=== PATIENT | female | born 1965 | race Caucasian/White ===

== ENCOUNTER → 2017-12-18 12:34 | Outpatient (CLI) | payer MEDICARE, SELFPAY ==
[2017-12-18 12:53] LABS: Absolute Lymphocyte Count 1.28 X10^3/ul (0.83-4.51); Absolute Neutrophil Count 2.6 X10^3/uL (2.0-7.7); Basophil# 0.02 X10^3/uL; Basophil% 0.4 % (0-1); Eosinophil# 0.12 X10^3/uL; Eosinophils% 2.6 % (0-5); Hematocrit 43.5 % (37-47); Hemoglobin 14.5 g/dl (12.0-15.0); Lymphocyte # 1.28 X10^3/ul (4.0); Lymphocyte % 28.2 % (19-41); Mean Corp Hgb Conc 33.3 g/gl (32-36); Mean Corpuscular Hgb 33.7 pg (27.0-32.0); Mean Corpuscular Volume 101.2 fL (81-99); Mean Platelet Vol. 9.5 fl (6.2-12.0); Monocyte# 0.54 X10^3/uL; Monocyte% 11.9 % (0-10); Neutrophil # 2.57 X10^3/uL (2.7-7.7); Neutrophil % 56.7 % (47-70); Platelet Count 160 K/mm3 (150-450); RBC Distribution Width CV 13.6 % (11.6-14.6); RBC Distribution Width SD 49.8 fl (35.1-43.9); White Blood Count 4.5 K/mm3 (4.4-11.0)
[2017-12-18 12:55] LABS: POSITIVE COUNT NO; POSITIVE DIFFERENTIAL NO; POSITIVE MORPHOLOGY NO
[2017-12-18 13:30] LABS: ALB/GLOB Ratio 0.9 RATIO (0.9-2.4); AST(SGOT) 23 U/L (15-37); Alanine Aminotransfer ALT/SGPT 38 U/L (13-56); Albumin, Serum 3.4 g/dL (3.2-5.0); Alkaline Phosphatase 135 U/L (45-117); Anion Gap 9 (5-15); BUN 30 mg/dL (7-18); BUN/Creat Ratio 17.3 RATIO (10-20); Calcium,Total 9.7 mg/dL (8.5-10.1); Chloride 102 mmol/L (98-107); Creatinine, Serum 1.73 mg/dL (0.55-1.02); EST Glomerular Filtration Rate 33 mL/min (>60); Est Glom Filt Rate - Afr Amer 40 mL/min (>60); Globulin 3.9 g/dL (2.2-4.2); Glucose 261 mg/dL (70-110); Potassium 3.8 mmol/L (3.5-5.1); Protein, Total 7.3 g/dL (6.4-8.2); Sodium Level 138 mmol/L (136-145)
== END ==
PROVIDERS: Family Provider Internal Medicine; PCP Internal Medicine; Visit Provider Internal Medicine Rheumatology
DX: L40.59 Other psoriatic arthropathy (principal); M79.7 Fibromyalgia; G62.9 Polyneuropathy, unspecified; Z79.899 Other long term (current) drug therapy
CPT/HCPCS: 80053; 85025

== ENCOUNTER 2018-02-11 13:05 | Day surgery (SDC) | payer MEDICARE, SELFPAY ==
[2018-02-11 13:31] VITALS: BP 149/92; PULSE 94; RESP 14; TEMP 36.9; O2SAT 93; BMI 52.4
[2018-02-11 13:51] LABS: Bedside Glucose 208 mg/dL (70-110)
[2018-02-11 14:11] LABS: Prothrombin Time Fingerstick 12.4 SEC (11.9-14.4)
[2018-02-11] MEDS: Cefazolin 1 GM/50 ML BAG IV (14:56)
--- NOTE | 2018-02-11 15:26 | PCM.DC.ORTHO ---
Discharge Diet: No Restrictions Discharge Activity: May Not Drive Ice area for (Minutes): 20 Keep extremity elevated above heart level: Left Arm Call your doctor if your incision/area has: Continuous Slow Oozing, Sudden Increased Bleeding, Increased Pain/ Swelling, Increased Redness, Foul Smelling Discharge Call your doctor if you observe: Fever of 101 or Higher, Coldness, Increased Pain, Numbness or Tingling, Change in Color Suture Line Care: Avoid Pulling/Pushing Remove Dressing in (days):: 7 Cleanse incision/area with: Keep Dressing Clean & Dry - until dressing removed. then may get wet in shower, do not submerge Allergies/Adverse Reactions: Allergies hydrogen peroxide Allergy (Verified 02/04/18 15:07) Rash Sulfa (Sulfonamide Antibiotics) Allergy (Verified 02/04/18 15:07) Hives iodine Adverse Reaction (Verified 02/04/18 15:07) burning (topical) vitamin k Allergy (Uncoded 04/08/17 09:57) Swelling/burning around injection site Medications to take at Discharge Albuterol Sulfate [Proair Hfa] 2 puff INHALATION Q4H PRN PRN 06/30/14 Dicyclomine HCl [Bentyl] 10 mg PO 4X/DAY 06/30/14 Hydroxychloroquine [Plaquenil] 200 mg PO DAILY 06/30/14 Leflunomide 20 mg PO DAILY 06/30/14 Levothyroxine [Synthroid] 100 mcg PO DAILY 06/30/14 Omeprazole [Prilosec] 40 mg PO DAILY 06/30/14 Ondansetron HCl 4 mg PO Q8H PRN PRN 06/30/14 Simvastatin [Zocor] 10 mg PO QHS 06/30/14 Sucralfate [Carafate] 10 ml PO ACHS PRN 06/30/14 Quetiapine Fumarate [Seroquel] 25 mg PO BID 08/24/14 Lactobacillus Combination No.4 [Probiotic] 2 each PO QHS 10/29/14 Quetiapine Fumarate [Seroquel XR] 150 mg PO QHS 04/17/16 Verapamil [Calan] 40 mg PO TID 04/17/16 Morphine Pain Pump 05/23/16 Vitamin B Complex 1 each PO DAILY 05/23/16 Vitamin E 400 unit PO DAILY 05/23/16 Warfarin [Coumadin] 5 mg PO SUMOWETHFR 04/08/17 Warfarin [Coumadin] 7.5 mg PO TUSA 04/08/17 Albuterol Aerosols [Ventolin Aerosols] 2.5 mg INHALATION Q6HWA.RT 04/12/17 Clonazepam [Klonopin] 0.5 mg PO QHS #10 tablet 04/12/17 Gabapentin [Neurontin] 300 mg PO TIDCM #90 capsule 04/12/17 Lisinopril [Zestril] 2.5 mg PO DAILY tablet 04/12/17 Metoprolol Tartrate [Lopressor (beta ancelmo)] 25 mg PO BID tablet 04/12/17 Oxycodone [Oxyir] 5 mg PO Q6H PRN PRN #10 tablet 04/12/17 Fluticasone/Vilanterol [Breo Ellipta 200-25 Mcg INH] 1 each IH DAILY 02/04/18 Gabapentin [Gralise] 600 mg PO QHS 02/04/18 Insulin Aspart [Novolog Flexpen] 20 units SC TIDCM 02/04/18 Insulin Glargine [Lantus SoloStar Pen] 60 units SC QHS 02/04/18 Hydrocodone Bitart/Apap 5-325 [[place] 5/325] 1 - 2 tablet PO Q6H PRN PRN 7 Days #40 tablet 02/11/18 The following prescriptions were given: Hydrocodone Bitart/Apap 5-325 [[place] 5/325] 1 - 2 tablet PO Q6H PRN PRN 7 Days #40 tablet PRN Reason: Mild-Moderate (pain scale 1-5) Please Follow Up With: Eugene Juárez PA-C When: as scheduled
--- NOTE | 2018-02-11 15:31 | DCINST_ITS ---
Discharge Diet: No Restrictions Discharge Activity: May Not Drive Ice area for (Minutes): 20 Keep extremity elevated above heart level: Left Arm Call your doctor if your incision/area has: Continuous Slow Oozing, Sudden Increased Bleeding, Increased Pain/ Swelling, Increased Redness, Foul Smelling Discharge Call your doctor if you observe: Fever of 101 or Higher, Coldness, Increased Pain, Numbness or Tingling, Change in Color Suture Line Care: Avoid Pulling/Pushing Remove Dressing in (days):: 7 Cleanse incision/area with: Keep Dressing Clean & Dry - until dressing removed. then may get wet in shower, do not submerge Allergies/Adverse Reactions: Allergies hydrogen peroxide Allergy (Verified 02/04/18 15:07) Rash Sulfa (Sulfonamide Antibiotics) Allergy (Verified 02/04/18 15:07) Hives iodine Adverse Reaction (Verified 02/04/18 15:07) burning (topical) vitamin k Allergy (Uncoded 04/08/17 09:57) Swelling/burning around injection site Medications to take at Discharge Albuterol Sulfate [Proair Hfa] 2 puff INHALATION Q4H PRN PRN 06/30/14 Dicyclomine HCl [Bentyl] 10 mg PO 4X/DAY 06/30/14 Hydroxychloroquine [Plaquenil] 200 mg PO DAILY 06/30/14 Leflunomide 20 mg PO DAILY 06/30/14 Levothyroxine [Synthroid] 100 mcg PO DAILY 06/30/14 Omeprazole [Prilosec] 40 mg PO DAILY 06/30/14 Ondansetron HCl 4 mg PO Q8H PRN PRN 06/30/14 Simvastatin [Zocor] 10 mg PO QHS 06/30/14 Sucralfate [Carafate] 10 ml PO ACHS PRN 06/30/14 Quetiapine Fumarate [Seroquel] 25 mg PO BID 08/24/14 Lactobacillus Combination No.4 [Probiotic] 2 each PO QHS 10/29/14 Quetiapine Fumarate [Seroquel XR] 150 mg PO QHS 04/17/16 Verapamil [Calan] 40 mg PO TID 04/17/16 Morphine Pain Pump 05/23/16 Vitamin B Complex 1 each PO DAILY 05/23/16 Vitamin E 400 unit PO DAILY 05/23/16 Warfarin [Coumadin] 5 mg PO SUMOWETHFR 04/08/17 Warfarin [Coumadin] 7.5 mg PO TUSA 04/08/17 Albuterol Aerosols [Ventolin Aerosols] 2.5 mg INHALATION Q6HWA.RT 04/12/17 Clonazepam [Klonopin] 0.5 mg PO QHS #10 tablet 04/12/17 Gabapentin [Neurontin] 300 mg PO TIDCM #90 capsule 04/12/17 Lisinopril [Zestril] 2.5 mg PO DAILY tablet 04/12/17 Metoprolol Tartrate [Lopressor (beta ancelmo)] 25 mg PO BID tablet 04/12/17 Oxycodone [Oxyir] 5 mg PO Q6H PRN PRN #10 tablet 04/12/17 Fluticasone/Vilanterol [Breo Ellipta 200-25 Mcg INH] 1 each IH DAILY 02/04/18 Gabapentin [Gralise] 600 mg PO QHS 02/04/18 Insulin Aspart [Novolog Flexpen] 20 units SC TIDCM 02/04/18 Insulin Glargine [Lantus SoloStar Pen] 60 units SC QHS 02/04/18 Hydrocodone Bitart/Apap 5-325 [[place] 5/325] 1 - 2 tablet PO Q6H PRN PRN 7 Days # 40 tablet 02/11/18 The following prescriptions were given: Hydrocodone Bitart/Apap 5-325 [[place] 5/325] 1 - 2 tablet PO Q6H PRN PRN 7 Days # 40 tablet PRN Reason: Mild-Moderate (pain scale 1-5) Please Follow Up With: Eugene Juárez PA-C When: as scheduled
--- NOTE | 2018-02-11 15:31 | PCM.OPRPT ---
Report of Operation Date of Procedure: 02/11/18 Pre-Operative Diagnosis: Severe carpal tunnel syndrome left wrist Post-Operative Diagnosis: Severe carpal tunnel syndrome left wrist Surgery/Procedure Performed:: External neurolysis median nerve left Description of Surgical Findings:: Carpal tunnel syndrome oven technician: Andrew Hickman Type of Anesthesia:: Oz Santa Anesthesiologist: Feroz Tineo Estimated Blood Loss (mL): 5 Fluids Replaced: See anesthesia report Description of Procedure: Surgical indications: Yelena is a 52-year-old female that has severe carpal tunnel syndrome diagnosed via EMG nerve conduction velocity. She has elected to undergo the above procedure Procedure description: Yelena was greeted in the preoperative area. Her left upper extremities marked with surgical marker. Preoperative antibiotics were administered. She was then taken or [address] in a stable condition. After adequate anesthesia was obtained and airway was secured the arm was prepped and draped in usual sterile fashion. Surgical timeout was performed surgery was commenced. incision was then made in the palm in line with the third webspace not propagating distal to Adams's line. This is approximately 2 cm in length. Sharp dissection was then carried through the palmar fascia and the flexor retinaculum was identified. The flexor retinaculum was then transected in line with median nerve. Median nerve was easily identified beneath the flexor retinaculum and protected as the flexor retinaculum was transected to the antebrachial fascia. The remaining portion of the retinaculum was then transected distally to the palmar fat pad. The nerve was then visualized and free of any compression. There is also no abnormalities of the nerve identified with visual inspection. Once this was complete the skin was closed with 3-0 nylon. A well-padded on her dressings applied secured with a Ortho-Glass splint. Patient taught procedure well without complication was taken to recovery room in stable condition. - Admit VTE Documentation VTE Present on Admission: Yes VTE Mechan Device Prophylaxis: SCD's, Knee High INDIO Hose VTE Pharm Prophylaxis ordered?: No Reason prophylaxis not ordered:: Procedure Not Indicated
[2018-02-11 15:39] VITALS: BP 118/70; BP 149/92; PULSE 104; RESP 18; TEMP 36.9; O2SAT 92
[2018-02-11 15:45] VITALS: BP 115/69; BP 149/92; PULSE 97; RESP 18; O2SAT 93
[2018-02-11 15:50] VITALS: BP 118/94; BP 149/92; PULSE 91; RESP 18; O2SAT 95
[2018-02-11 15:56] VITALS: BP 101/63; BP 149/92; PULSE 88; RESP 18; TEMP 36.6; O2SAT 96
[2018-02-11 16:40] VITALS: BP 149/92
== END 2018-02-11 16:42 | disposition home or self-care (01) ==
LOC: SDC 13:08 → AC 13:09
PROVIDERS: Family Provider Internal Medicine; PCP Internal Medicine; Visit Provider Orthopaedic Surgery
PROC: (CPT 64721; principal; 2018-02-11 14:30)
DX: G56.02 Carpal tunnel syndrome, left upper limb (principal); I12.9 Hypertensive chronic kidney disease with stage 1 through stage 4 chronic kidney disease, or unspecified chronic kidney disease; E11.22 Type 2 diabetes mellitus with diabetic chronic kidney disease; N18.3 Chronic kidney disease, stage 3 (moderate); E07.9 Disorder of thyroid, unspecified; M06.9 Rheumatoid arthritis, unspecified; J45.909 Unspecified asthma, uncomplicated; M79.7 Fibromyalgia; G47.30 Sleep apnea, unspecified; L40.9 Psoriasis, unspecified; G25.81 Restless legs syndrome; E66.3 Overweight; Z68.43 Body mass index [BMI] 50.0-59.9, adult; F32.9 Major depressive disorder, single episode, unspecified; Z79.01 Long term (current) use of anticoagulants; Z79.4 Long term (current) use of insulin; Z79.899 Other long term (current) drug therapy; Z86.73 Personal history of transient ischemic attack (TIA), and cerebral infarction without residual deficits; Z86.711 Personal history of pulmonary embolism; Z86.72 Personal history of thrombophlebitis; Z86.718 Personal history of other venous thrombosis and embolism; Z87.442 Personal history of urinary calculi; Z87.19 Personal history of other diseases of the digestive system; Z90.710 Acquired absence of both cervix and uterus
CPT/HCPCS: 01810; 64721; 64727; 36416; 82962; 85610; J7120; A4216; J2405

== ENCOUNTER → 2018-03-11 16:29 | Outpatient (CLI) | payer MEDICARE, SELFPAY ==
[2018-03-11 18:19] LABS: Hemoglobin 15.1 g/dl (12.0-15.0); Red Blood Count 4.51 M/mm3 (4.2-5.4); White Blood Count 5.8 K/mm3 (4.4-11.0)
[2018-03-11 18:20] LABS: Basophil% 0.2 % (0-1); Eosinophils% 2.6 % (0-5); Hematocrit 45.5 % (37-47); Lymphocyte % 38.6 % (19-41); Mean Corp Hgb Conc 33.2 g/gl (32-36); Mean Corpuscular Hgb 33.5 pg (27.0-32.0); Mean Corpuscular Volume 100.9 fL (81-99); Mean Platelet Vol. 9.7 fl (6.2-12.0); Monocyte% 12.2 % (0-10); Neutrophil % 46.2 % (47-70); POSITIVE COUNT NO; POSITIVE DIFFERENTIAL NO; POSITIVE MORPHOLOGY NO; Platelet Count 157 K/mm3 (150-450); RBC Distribution Width CV 13.5 % (11.6-14.6); RBC Distribution Width SD 49.4 fl (35.1-43.9)
[2018-03-11 18:21] LABS: ALB/GLOB Ratio 0.9 RATIO (0.9-2.4); AST(SGOT) 41 U/L (15-37); Absolute Lymphocyte Count 2.25 X10^3/ul (0.83-4.51); Absolute Neutrophil Count 2.7 X10^3/uL (2.0-7.7); Alanine Aminotransfer ALT/SGPT 65 U/L (13-56); Albumin, Serum 3.7 g/dL (3.2-5.0); Alkaline Phosphatase 176 U/L (45-117); Anion Gap 9 (5-15); BUN 25 mg/dL (7-18); BUN/Creat Ratio 17.2 RATIO (10-20); Basophil# 0.01 X10^3/uL; Calcium,Total 9.8 mg/dL (8.5-10.1); Chloride 105 mmol/L (98-107); Creatinine, Serum 1.45 mg/dL (0.55-1.02); EST Glomerular Filtration Rate 41 mL/min (>60); Eosinophil# 0.15 X10^3/uL; Est Glom Filt Rate - Afr Amer 49 mL/min (>60); Globulin 4.1 g/dL (2.2-4.2); Glucose 182 mg/dL (74-106); Lymphocyte # 2.25 X10^3/ul (4.0); Monocyte# 0.71 X10^3/uL; Potassium 3.8 mmol/L (3.5-5.1); Protein, Total 7.8 g/dL (6.4-8.2); Sodium Level 139 mmol/L (136-145)
== END ==
PROVIDERS: Family Provider Internal Medicine; PCP Internal Medicine; Visit Provider Internal Medicine Rheumatology
DX: L40.59 Other psoriatic arthropathy (principal); L40.9 Psoriasis, unspecified; M79.7 Fibromyalgia; G62.9 Polyneuropathy, unspecified; G56.02 Carpal tunnel syndrome, left upper limb; Z79.899 Other long term (current) drug therapy
CPT/HCPCS: 36415; 80053; 85025; 97110; 97530

== ENCOUNTER 2018-03-20 14:00 | Outpatient (RCR) | payer MEDICARE, SELFPAY ==
--- NOTE | 2018-02-26 14:52 | HP.OTEVAL_ITS ---
Patient's Visit Information DEBORA MEYERS is a 52 year old F, referred to Occupational Therapy by Doyle Lorenzo DO, with a diagnosis of left Carpal tunnel syndrome. Date of Evaluation: 02/26/18 Occupational Therapist: KENY Seo/Nyla, CHT - Subjective Subjective: Pt states she had left CTR on February 11. pt attends session with left cock-up brace on- pt states instructed her to wear brace at night and when out of the house. pt is right handed. pt states following sx she has better movement but continues to have nerve pain, tingling and numbness. - Pain left hand 7 Pain Intensity Range: 6, 8 - ROM Forearm: Right/left WNL Wrist: right 50/65 left 25/45 - Strength Health And Wellness Instructor: right 20# left trace Lateral Pinch: right 6# left unable Tripod Pinch: right 6# left unable - Sensation Thumb: right 2.83 left 3.61 Index: right 2.83 left 3.61 Middle: riight 2.83 left 3.61 Ring: right 2.83 left 3.61 Little: right 2.83 left 3.61 - Nine Hole Peg Right: 24.94 Left: 43.35 - Hand/Wrist Evaluation Total Score of Pain & Functional Sections: 79 - Goals Goal:: pt will demo a left instructor apparel manufacture strength of 25# or greater to increase ind. with BADLs adn IADLS by d/c. pt will demo a increase in tripod pinch strength of 4# to increase ind with pinch and FM tasks by d/c Goal:: pt will demo a increase in left wrist ROM by 15 degress to increase pts ind. with BADLS and IADLS by d/c Goal:: pt will report pain no greater than 3/10 with use of left hand with daily occupations by d/c Goal:: pt will demo a decrease in 9-hole peg test by 5 sec. demo increase FMS for buttons, zippers and tying shoes by d/c Goal:: pt will demo understanding of scar mtg by end of 2nd session. - Rehabilitation General Assessment: S/P CTR February 11, 2018. pt demo with decreased functional wrist ROM and the ability to form a composite fist. pt's limited with instructor apparel manufacture and pinch strength at this time as well. the limitations are increasing her need of assist with BADLS and IADLS. Rehabilitation Potential: Good - Anticipated Interventions Anticipated Interventions: A/AAROM/PROM, Strengthening, Scar Care, Triggerpoint Release, Desensitization, Sensory Retraining, Modalities, Orthoses - Visit Plan Frequency: 2-3x /Week Duration: 4 Weeks General Plan: OT services 2-3xweek for 4-6 weeks to return pt back to PLOF- Treatment of ROM, PRE and use of desensitization sam. to decrease pts pain and increase functional use of left hand with BADLS and IADLS. TEXT: Thank you for the opportunity to evaluate your patient. For Medicare and Medicare HMO plans, please review the plan of care and approve it. It will need to be FAXED BACK to us at [phone] for Medicare purposes. Please let me know if there are questions or concerns regarding this plan of care. Physician Signature: Date:
--- NOTE | 2018-04-30 13:16 | HP.OT.NRP ---
HP - Discharge Summary - Patient Information DEBORA MEYERS was seen in my office for initial evaluation on 02/26/18. The following Plan of Care was established for this patient: Initial Frequency: 2-3x /Week Initial Duration: 4 Weeks Plan: cont with desensitization. yellow t-putty - Anticipated Interventions Anticipated Interventions: A/AAROM/PROM, Strengthening, Scar Care, Triggerpoint Release, Desensitization, Sensory Retraining, Modalities, Orthoses This patient was last seen in our office 03/18/18. Pertinent comments regarding their Occupational therapy will appear below: pt was seen for 4 visits in OT- pt has a number of cancellations during this time- pt was progressing with desensitization and PRE. pt cancelled her last apt and has not re-scheduled at this time. Pt d/c due to non attendance At this point I will be discontinuing this patient from occupational therapy. I would be happy to see this patient again in the future if found appropriate by the physician. Thank you! Sheeba Hernández, OTR/L, CHT
== END 2018-03-20 19:00 | disposition home or self-care (01) ==
LOC: OT 14:00
PROVIDERS: Family Provider Internal Medicine; PCP Internal Medicine; Visit Provider Orthopaedic Surgery
DX: G56.02 Carpal tunnel syndrome, left upper limb (principal)
CPT/HCPCS: 97035; 97110; 97166; 97530

== ENCOUNTER → 2018-05-27 13:47 | Outpatient (CLI) | payer MEDICARE, SELFPAY ==
[2018-05-27 16:16] LABS: Absolute Lymphocyte Count 2.16 X10^3/ul (0.83-4.51); Absolute Neutrophil Count 1.9 X10^3/uL (2.0-7.7); Basophil# 0.01 X10^3/uL; Basophil% 0.2 % (0-1); Eosinophil# 0.13 X10^3/uL; Eosinophils% 2.8 % (0-5); Hematocrit 42.1 % (37-47); Lymphocyte # 2.16 X10^3/ul (4.0); Lymphocyte % 47.1 % (19-41); Mean Corp Hgb Conc 33.3 g/gl (32-36); Mean Corpuscular Hgb 33.9 pg (27.0-32.0); Mean Corpuscular Volume 101.9 fL (81-99); Mean Platelet Vol. 9.8 fl (6.2-12.0); Monocyte% 8.7 % (0-10); Neutrophil # 1.87 X10^3/uL (2.7-7.7); Neutrophil % 40.8 % (47-70); Platelet Count 180 K/mm3 (150-450); RBC Distribution Width CV 14.3 % (11.6-14.6); RBC Distribution Width SD 52.7 fl (35.1-43.9); Red Blood Count 4.13 M/mm3 (4.2-5.4); White Blood Count 4.6 K/mm3 (4.4-11.0)
[2018-05-27 16:18] LABS: POSITIVE COUNT NO; POSITIVE DIFFERENTIAL NO; POSITIVE MORPHOLOGY NO
[2018-05-27 16:34] LABS: ALB/GLOB Ratio 0.9 RATIO (0.9-2.4); AST(SGOT) 48 U/L (15-37); Alanine Aminotransfer ALT/SGPT 64 U/L (13-56); Albumin, Serum 3.5 g/dL (3.2-5.0); Alkaline Phosphatase 112 U/L (45-117); Anion Gap 9 (5-15); BUN 29 mg/dL (7-18); BUN/Creat Ratio 18.1 RATIO (10-20); Calcium,Total 9.5 mg/dL (8.5-10.1); Chloride 101 mmol/L (98-107); EST Glomerular Filtration Rate 36 mL/min (>60); Est Glom Filt Rate - Afr Amer 44 mL/min (>60); Globulin 3.7 g/dL (2.2-4.2); Glucose 121 mg/dL (74-106); Potassium 3.7 mmol/L (3.5-5.1); Protein, Total 7.2 g/dL (6.4-8.2); Sodium Level 140 mmol/L (136-145)
== END ==
PROVIDERS: Family Provider Internal Medicine; PCP Internal Medicine; Visit Provider Internal Medicine Rheumatology
DX: L40.59 Other psoriatic arthropathy (principal); I12.9 Hypertensive chronic kidney disease with stage 1 through stage 4 chronic kidney disease, or unspecified chronic kidney disease; E11.22 Type 2 diabetes mellitus with diabetic chronic kidney disease; M79.7 Fibromyalgia; G62.9 Polyneuropathy, unspecified; K58.9 Irritable bowel syndrome, unspecified; E03.9 Hypothyroidism, unspecified; G47.33 Obstructive sleep apnea (adult) (pediatric); F31.9 Bipolar disorder, unspecified; J45.909 Unspecified asthma, uncomplicated; Z79.899 Other long term (current) drug therapy; Z86.718 Personal history of other venous thrombosis and embolism
CPT/HCPCS: 36415; 80053; 85025

== ENCOUNTER → 2018-05-30 10:55 | Outpatient (CLI) | payer MEDICARE, SELFPAY ==
--- NOTE | 2018-05-30 10:59 | US_ITS ---
STUDY: ABDOMINAL ULTRASOUND - RIGHT UPPER QUADRANT REASON FOR VISIT: Female, 53 years old. Elevated LFTs. TECHNIQUE: Ultrasound evaluation of the right upper quadrant was performed with real-time and static molina-scale imaging. TECHNICAL QUALITY: Examination limited by bowel gas. COMPARISON: CT of the abdomen and pelvis, April 08, 2017. FINDINGS: Liver: The liver measures 11.4 cm. There is increased echogenicity consistent with fatty infiltration. The bile ducts are within normal limits. There is hepatic color flow. The direction of portal flow is hepatopetal. There is no demonstrated mass lesion. Gallbladder: The patient is status post cholecystectomy. Common Bile Duct (C.B.D.): The common bile duct measures 3.2 mm. Pancreas: There is nonvisualization of the pancreas. Right Kidney: Normal size of the right kidney. The right kidney measures 10.2 cm. Normal renal cortex. The right cortex measures 1.1 cm. There is a focal area within the renal sinus similar in echogenicity to the renal parenchyma thought to represent a column of Lew. This correlates with the prior CT findings. There is no right hydronephrosis. US/Liver IMPRESSION: 1. Small fatty infiltrated liver without focal mass. 2. Status post cholecystectomy. 3. Nonvisualization the pancreas due to bowel gas. 4. Column of Lew without other evidence of renal abnormality. Electronically Signed: Doroteo Wylie DO at 21:30 EDT Tel [phone], Service support ,
== END ==
PROVIDERS: Family Provider Internal Medicine; PCP Internal Medicine; Visit Provider Internal Medicine Rheumatology
DX: R94.5 Abnormal results of liver function studies (principal)
CPT/HCPCS: 76705

== ENCOUNTER 2018-06-07 18:01 | Inpatient (IN) | payer MEDICARE, SELFPAY ==
[2018-06-07] VITALS (7 sets, daily range): BP systolic 74–128; BP diastolic 54–85; PULSE 83–88; RESP 12–16; TEMP 36.9; O2SAT 86–94; BMI 58.0
--- NOTE | 2018-06-07 18:46 | CT_ITS ---
STUDY: CT BRAIN WITHOUT CONTRAST REASON FOR EXAM: Female, 53 years old. ALTERED MENTAL STATUS RADIATION DOSAGE (If Supplied By Facility): CTDIvol = ( 44.99 ) mGy, DLP = ( 796.11 ) mGycm TECHNIQUE: Transaxial CT imaging of the brain was performed without administration of intravenous contrast material. COMPARISON: July 28, 2016 FINDINGS: Normal soft tissue structures. Normal calvarium. There are calcifications around the carotid artery. These are noted in the cavernous carotid arteries. There is mild cerebral atrophy with widening of the extra-axial spaces and ventricular dilatation. There are areas of decreased attenuation within the white matter tracts of the supratentorial brain, consistent with microvascular disease changes. Normal basal ganglia and thalami. Normal brainstem. There is mild cerebellar atrophy. There is no intracranial hemorrhage. There are no findings of an acute ischemic infarction. Normal visualized paranasal sinuses. CT/Brain/Head without Contrast IMPRESSION: Chronic involutional changes of the brain. There are no acute findings. Electronically Signed: Chapin Jett MD at 20:23 EDT , Service support ,
--- NOTE | 2018-06-07 18:46 | EKG12_ITS ---
Test Reason : ALT LOC Blood Pressure : / mmHG Vent. Rate : 082 BPM Atrial Rate : 082 BPM P-R Int : 154 ms QRS Dur : 136 ms QT Int : 390 ms P-R-T Axes : 037 -16 001 degrees QTc Int : 455 ms Normal sinus rhythm Right bundle branch block Abnormal ECG Confirmed by SAUL OLIVO ([id number]), scientific publications editor SANTINO CONTRERAS ([id number]) on 06/11/2018 1:33:12 PM Referred By: Cat Donato Confirmed By:SAUL OLIVO
[2018-06-07] MEDS: 0.9% Normal Saline 1,000 ML 999 ML IV (18:50)
--- NOTE | 2018-06-07 19:00 | RAD_ITS ---
STUDY: X-RAY CHEST REASON FOR EXAM: Female, 53 years old. ALT LOC, best image possible, patient unable to follow any instructions TECHNIQUE: Single frontal view of the chest. COMPARISON: June 12, 2017 FINDINGS: Slight prominence of the pulmonary vasculature. Fluffy bilateral infiltrates. There is no pneumothorax. There are bilateral pleural effusions. The osseous structures are intact. The heart appears enlarged. Normal mediastinum and tomasa. There is prominence of the pulmonary hilar arteries and peripheral pulmonary arteries, consistent with congestive heart failure (CHF). There is atherosclerotic calcification of the aortic arch with tortuosity. There are diffuse degenerative changes of the visualized thoracic spine. There is degenerative osteoarthritis of the bilateral shoulders. There is no demonstrated abnormality of the visualized soft tissue structures of the upper abdomen. IMPRESSION: Central pulmonary vascular congestion vs pulmonary edema. Overlying pneumonia cannot be excluded. Electronically Signed: Chapin Jett MD at 19:42 EDT , Service support , RAD/Chest 1 View (Portable)
[2018-06-07 19:01] LABS: Absolute Lymphocyte Count 2.28 X10^3/ul (0.83-4.51); Absolute Neutrophil Count 5.9 X10^3/uL (2.0-7.7); Basophil# 0.02 X10^3/uL; Basophil% 0.2 % (0-1); Eosinophil# 0.13 X10^3/uL; Eosinophils% 1.4 % (0-5); Hematocrit 41.6 % (37-47); Hemoglobin 13.6 g/dl (12.0-15.0); Lymphocyte # 2.28 X10^3/ul (4.0); Lymphocyte % 24.9 % (19-41); Mean Corp Hgb Conc 32.7 g/gl (32-36); Mean Corpuscular Hgb 33.7 pg (27.0-32.0); Mean Corpuscular Volume 103.2 fL (81-99); Mean Platelet Vol. 10.6 fl (6.2-12.0); Monocyte# 0.82 X10^3/uL; Neutrophil # 5.89 X10^3/uL (2.7-7.7); Neutrophil % 64.4 % (47-70); Platelet Count 148 K/mm3 (150-450); RBC Distribution Width SD 56.5 fl (35.1-43.9); Red Blood Count 4.03 M/mm3 (4.2-5.4); White Blood Count 9.2 K/mm3 (4.4-11.0)
[2018-06-07 19:03] LABS: POSITIVE COUNT NO; POSITIVE DIFFERENTIAL NO; POSITIVE MORPHOLOGY NO
[2018-06-07 19:14] LABS: Anion Gap 14 (5-15); BUN 80 mg/dL (7-18); BUN/Creat Ratio 13.6 RATIO (10-20); Calcium,Total 11.1 mg/dL (8.5-10.1); Chloride 91 mmol/L (98-107); EST Glomerular Filtration Rate 8 mL/min (>60); Est Glom Filt Rate - Afr Amer 10 mL/min (>60); Glucose 167 mg/dL (74-106); Potassium 5.9 mmol/L (3.5-5.1); Sodium Level 131 mmol/L (136-145)
[2018-06-07 19:35] LABS: Allen Test POS; Base Excess 0 mmol/L (-2 to +2); Blood Gas Specimen Type ART; O2 Delivery Device Nasal Can; PO2 77 mmHG (75-100); SITE R Radial; SO2 94 % (95-99); Time Given 1923; Total Carbon Dioxide 27 mmol/L; pCO2 48.5 mmHg (35-45); pH 7.34 (7.35-7.45)
[2018-06-07 19:48] LABS: Bacteria 0 SEEN /hpf (None Seen); Mucous, Urine 0 SEEN /hpf (<or=2+); Red Blood Cells-Urine 0 SEEN /hpf (0-5); White Blood Cells 0 SEEN /hpf (0-5)
[2018-06-07 19:50] LABS: Color, Urine Yellow (Yellow); Glucose, Dipstick Normal (Normal); Ketone-Dipstick Negative (Negative); Leukocyte Esterase-Dipstick 25 /ul (Negative); Nitrite-Dipstick Negative (Negative); Occult Blood-Urine Negative /ul (Negative); Protein-Dipstick 15 mg/dl (Negative); Urine Bilirubin Dipstick 3 mg/dL (Negative); Urine Clarity Sl. Cloudy (Clear); Urine Urobilinogen 1 mg/dl (Normal)
[2018-06-07 19:55] LABS: Squamous Epithelial Cells - UA 0-5 SEEN /hpf (5-10)
[2018-06-07 19:56] LABS: Hyaline Cast 0-5 SEEN /lpf (0-5)
[2018-06-07 20:01] LABS: Calcium Oxalate Crystals Ur RARE /hpf (<or=2+)
--- NOTE | 2018-06-07 23:07 | ED.VISSUMM ---
- ER Visit Summary Date of Service: 06/07/18 Chief Complaint: His mental status. Increased sleep. History of Present Illness: The patient is a 53 F history of prior TIA, COPD, sleep apnea, renal insufficiency, diabetes, chronic pain with a pain pump. According the patient had a decreased mental status since Sunday with increasing sleep. No fever. No fall or head trauma. She is on Coumadin. Physical Examination: Obese female. Initial blood pressure 93/61 temperature 95. Pulse ox 90% on 3 L. Consistent with hypoxia. H EENT exam unremarkable. Neck nontender no lymphadenopathy. No JVD. Lungs diminished in bases bilaterally. No rales rhonchi. Heart regular rate and rhythm rate in the 80s. No murmur. Abdomen obese but soft nontender nondistended no giving or masses. Remedies moves all 4. Neurologically she is eyes are open she is awake but she is depressed overall mental status. He currently is not following commands. Test Results: Chest x-ray shows chronic changes. Central pulmonary edema. Cannot rule out infiltrate. CT the brain shows chronic changes. EKG sinus rhythm rate 82 no acute signs of [place] or ischemia. White count 9 H&H 13 and 41. Electrolytes sodium 131. Potassium 5.9. Normal anion gap of 14. BUN of 80 creatinine 5.9 consistent with acute on chronic renal insufficiency and dehydration. UA normal no signs of infection troponin normal ketones are negative. Blood gas 7.34 PCO2 of 48 PO2 of 77. Emergency Department Course and Treatment: Patient treated with IV fluids. Treatment Plan: I spoke with the hospitalist Dr. Sanders to be admitted. Disposition: Admission Impression: Acute mental status change Acute on chronic renal insufficiency Dehydration. Hyperkalemia. Chronic pain with a pain pump. This note was generated with [employer] dictation software. It may contain incorrect words, spelling, and punctuation that were not noted in review of the chart prior to signing ED Disposition - Plan for ED Patient: Chief Complaint: Alt LOC Referrals: Erna Grier MD [Primary Care Provider] -
--- NOTE | 2018-06-07 23:10 | ED.DCSUM_ITS ---
- ER Visit Summary Date of Service: 06/07/18 Chief Complaint: His mental status. Increased sleep. History of Present Illness: The patient is a 53 F history of prior TIA, COPD, sleep apnea, renal insufficiency, diabetes, chronic pain with a pain pump. According the patient had a decreased mental status since Sunday with increasing sleep. No fever. No fall or head trauma. She is on Coumadin. Physical Examination: Obese female. Initial blood pressure 93/61 temperature 95. Pulse ox 90% on 3 L. Consistent with hypoxia. H EENT exam unremarkable. Neck nontender no lymphadenopathy. No JVD. Lungs diminished in bases bilaterally. No rales rhonchi. Heart regular rate and rhythm rate in the 80s. No murmur. Abdomen obese but soft nontender nondistended no giving or masses. Remedies moves all 4. Neurologically she is eyes are open she is awake but she is depressed overall mental status. He currently is not following commands. Test Results: Chest x-ray shows chronic changes. Central pulmonary edema. Cannot rule out infiltrate. CT the brain shows chronic changes. EKG sinus rhythm rate 82 no acute signs of [place] or ischemia. White count 9 H&H 13 and 41. Electrolytes sodium 131. Potassium 5.9. Normal anion gap of 14. BUN of 80 creatinine 5.9 consistent with acute on chronic renal insufficiency and dehydration. UA normal no signs of infection troponin normal ketones are negative. Blood gas 7.34 PCO2 of 48 PO2 of 77. Emergency Department Course and Treatment: Patient treated with IV fluids. Treatment Plan: I spoke with the hospitalist Dr. Sanders to be admitted. Disposition: Admission Impression: Acute mental status change Acute on chronic renal insufficiency Dehydration. Hyperkalemia. Chronic pain with a pain pump. This note was generated with [employer] dictation software. It may contain incorrect words, spelling, and punctuation that were not noted in review of the chart prior to signing ED Disposition - Plan for ED Patient: Chief Complaint: Alt LOC Referrals: Erna Grier MD [Primary Care Provider] -
--- NOTE | 2018-06-07 23:22 | HP.PCM_ITS ---
Problem List (1) BRENNEN (acute kidney injury) Status: Acute (2) Hyperkalemia Status: Acute (3) Altered mental status Status: Acute (4) Generalized weakness Status: Acute (5) CKD (chronic kidney disease) stage 3, GFR 30-59 ml/min Status: Chronic (6) Chronic back pain Status: Chronic (7) Depression Status: Chronic (8) Diabetes Status: Chronic (9) Diverticulosis Status: Chronic History of Present Illness Date of Admission: 06/07/18 Chief Complaint: BRENNEN The patient is a 53 year old female w/ h/o COPD, STACY, CKD III, and DMII admitted for alter mental status. She is unable to provide any history. History is taken from chart review and her . She ran out of pain meds 3 days ago on her pain ZINC ETCHER. She has been more confused on the day she ran out. She was unarousable by her . She was not able to take her meds. She did not drink much water. Past Medical History Past Medical History (Chronic Problems): Chronic Problems Obesity, morbid, BMI 40.0-49.9 (Chronic) Peripheral neuropathy (Chronic) CKD (chronic kidney disease) stage 3, GFR 30-59 ml/min (Chronic) IBS (irritable bowel syndrome) (Chronic) Fibromyalgia syndrome (Chronic) GERD (gastroesophageal reflux disease) (Chronic) Sleep apnea (Chronic) O2 at night claustrophobic Depression (Chronic) Diverticulosis (Chronic) Chronic back pain (Chronic) Asthma (Chronic) Diabetes (Chronic) Allergies hydrogen peroxide Allergy (Verified 02/04/18 15:07) Rash Sulfa (Sulfonamide Antibiotics) Allergy (Verified 02/04/18 15:07) Hives iodine Adverse Reaction (Verified 02/04/18 15:07) burning (topical) vitamin k Allergy (Uncoded 04/08/17 09:57) Swelling/burning around injection site Home Medications: Ambulatory Orders Medication Instructions Recorded Dicyclomine HCl [Bentyl] 10 mg PO 4X/DAY PRN 06/30/14 Levothyroxine [Synthroid] 100 mcg PO DAILY 06/30/14 Omeprazole [Prilosec] 40 mg PO DAILY 06/30/14 Quetiapine Fumarate [Seroquel] 25 mg PO BID 08/24/14 Lactobacillus Combination No.4 2 each PO QHS 10/29/14 [Probiotic] Morphine Pain Pump 05/23/16 Vitamin B Complex 1 each PO DAILY 05/23/16 Vitamin E 400 unit PO DAILY 05/23/16 Warfarin [Coumadin] 7.5 mg PO TUTH 04/08/17 Fluticasone/Vilanterol [Breo 1 each IH DAILY 02/04/18 Ellipta 200-25 Mcg INH] Insulin Glargine [Lantus SoloStar 40 units SC BID 02/04/18 Pen] Albuterol Inhaler [Ventolin Hfa 2 puff INHALATION Q4H PRN PRN 06/07/18 (SP)] Ascorbic Acid [Vitamin C] 500 mg PO DAILY@1200 06/07/18 Atorvastatin Calcium [Lipitor] 10 mg PO QHS 06/07/18 Biotin 5 mg PO TID 06/07/18 Calcium Magnesium Zinc Vit D3 3 tab PO BID 06/07/18 Cetirizine HCl [Zyrtec] 10 mg PO QHS 06/07/18 Cholecalciferol (VIT D3) [Vitamin 1,000 unit PO DAILY 06/07/18 D] Clonazepam [Klonopin] 0.5 - 1 mg PO QHS 06/07/18 Diphenoxylate HCl/Atropine 1 each PO PRN PRN 06/07/18 [Diphenoxylate-Atrop 2.5-0.025] Escitalopram Oxalate [Lexapro] 20 mg PO DAILY 06/07/18 Furosemide [Lasix] 40 mg PO DAILY 06/07/18 Gabapentin [Neurontin] 300 mg PO TIDCM 06/07/18 Hydroxychloroquine Sulfate 200 mg PO DAILY 06/07/18 [Plaquenil] Insulin Lispro [Humalog KwikPen] 30 units SQ TIDCM 06/07/18 Lisinopril [Zestril] 2.5 mg PO DAILY 06/07/18 Loratadine 10 mg PO DAILY 06/07/18 Morphine Sulfate [Morphine Sulfate 15 mg PO DAILY 06/07/18 ER] [place]-3 Fatty Acids/Fish Oil 1,000 mg PO TID 06/07/18 [[place] 3 1,000 mg Softgel] Ondansetron HCl [Zofran] 4 mg PO PRN PRN 06/07/18 Oxycodone HCl/Acetaminophen 1 tab PO QHS 06/07/18 [Percocet 5-325] Potassium Chloride [K-Dur] 10 meq PO BID 06/07/18 Quetiapine Fumarate [Seroquel] 200 mg PO QHS 06/07/18 Ropinirole HCl [Requip] 0.5 - 1 mg PO TID 06/07/18 Simvastatin [Zocor] 10 mg PO QHS 06/07/18 Sucralfate 10 ml PO PRN PRN 06/07/18 Tizanidine HCl 4 mg PO TID 06/07/18 Topiramate [Topamax] 50 mg PO BID 06/07/18 Verapamil 40 mg PO TID 06/07/18 Warfarin [Coumadin (PBKC)] 5 mg PO SUMOWEFRSA 06/07/18 traZODone [Desyrel] 200 mg PO QHS 06/07/18 Surgical History: cholecystectomy, hysterectomy, - - Gastric surgery for acid reflux, pain pump insertion TECHNICAL INFORMATION SPECIALIST History: No pertinent TECHNICAL INFORMATION SPECIALIST history Smoking Status: Never smoker Alcohol: None Drugs: None - *Family History Maternal History Items: No pertinent history, - Review of Systems Unable to obtain accurate/complete ROS d/t: Unable to obtain VTE Information - Inpt Only VTE Present on Admission: No VTE Mechan Device Prophylaxis: SCD's VTE Pharm Prophylaxis ordered?: Yes Patient Problems: Active and Suspected Problems BRENNEN (acute kidney injury) (Acute) Hyperkalemia (Acute) Altered mental status (Acute) - Physical Exam General: Confused, Disoriented, Lethargic, Non-Cooperative HEENT: Atraumatic, PERRLA, EOMI, Normocephalic Neck: Supple, No JVD, Negative Carotid Bruits Lungs: Clear to auscultation, Normal air movement Cardiovascular: Regular rate, No murmurs Abdomen: Bowel Sounds Present, Soft, Non Tender Extremities: No edema, Capillary Refill Less than 3 Seconds Skin: No rashes, No breakdown Musculoskeletal: No Tenderness to Palpation of Joints or Extremities Neurological: Cranial nerves II-XII grossly intact Psych/Mental Status: Normal Affect, Appropriate Vital Signs Temp Pulse Resp BP Pulse Ox 98.5 F 88 16 118/85 H 93 06/07/18 18:06 06/07/18 22:19 06/07/18 22:19 06/07/18 22:19 06/07/18 22:19 Oxygen Flow Rate (L/min) 3 Oxygen Delivery Method Nasal Cannula Weight: 134.8 kg Body Mass Index (BMI) 58.0 Finger Stick Blood Glucose 254 Laboratory Tests Past 24 Hrs 06/07/18 06/07/18 06/07/18 18:15 18:15 18:15 WBC 9.2 RBC 4.03 L Hgb 13.6 Hct 41.6 MCV 103.2 H MCH 33.7 H MCHC 32.7 RDW 15.0 H RDW Differential 56.5 H Plt Count 148 L MPV 10.6 Immature Gran % (Auto) 0.100 Neut % (Auto) 64.4 Lymph % (Auto) 24.9 Price % (Auto) 9.0 Eos % (Auto) 1.4 Baso % (Auto) 0.2 Absolute Neuts (auto) 5.9 Absolute Lymphs (auto) 2.28 Total Counted Not Reportable PT Pending INR Pending Specimen Type Sample Site pH Bicarbonate Actual POC Total CO2 Base Excess O2 Saturation ABG pCO2 ABG pO2 Suleman Test O2 Delivery Device Liter Flow Blood Gas Notified Whom Blood Gas Notified Time Sodium 131 L Potassium 5.9 H Chloride 91 L Carbon Dioxide 26.0 Anion Gap 14 BUN 80 H Creatinine 5.90 H Estim Creat Clear Calc 8.10 Est GFR (MDRD) Af Amer 10 L Est GFR (MDRD) Non-Af 8 L BUN/Creatinine Ratio 13.6 Glucose 167 H Calcium 11.1 H Troponin I < 0.015 Urine Color Urine Clarity Urine pH Ur Specific Hitchcock Urine Protein Urine Glucose (UA) Urine Ketones Urine Occult Blood Urine Nitrite Urine Bilirubin Urine Urobilinogen Ur Leukocyte Esterase Urine RBC Urine WBC Ur Squamous Epith Cells Calcium Oxalate Crystal Urine Bacteria Hyaline Casts Urine Mucus Acetone Level 06/07/18 06/07/18 06/07/18 19:27 19:42 20:39 WBC RBC Hgb Hct MCV MCH MCHC RDW RDW Differential Plt Count MPV Immature Gran % (Auto) Neut % (Auto) Lymph % (Auto) Price % (Auto) Eos % (Auto) Baso % (Auto) Absolute Neuts (auto) Absolute Lymphs (auto) Total Counted PT INR Specimen Type ART Sample Site R Radial pH 7.34 L Bicarbonate Actual 26.0 POC Total CO2 27 Base Excess 0 O2 Saturation 94 L ABG pCO2 48.5 H ABG pO2 77 Suleman Test POS O2 Delivery Device Nasal Can Liter Flow 3.0 Blood Gas Notified Whom ED Blood Gas Notified Time 1922 Sodium Potassium Chloride Carbon Dioxide Anion Gap BUN Creatinine Estim Creat Clear Calc Est GFR (MDRD) Af Amer Est GFR (MDRD) Non-Af BUN/Creatinine Ratio Glucose Calcium Troponin I Urine Color Yellow Urine Clarity Sl. Cloudy Urine pH 5.0 Ur Specific Hitchcock 1.020 Urine Protein 15 H Urine Glucose (UA) Normal Urine Ketones Negative Urine Occult Blood Negative Urine Nitrite Negative Urine Bilirubin 3 H Urine Urobilinogen 1 H Ur Leukocyte Esterase 25 H Urine RBC 0 SEEN Urine WBC 0 SEEN Ur Squamous Epith Cells 0-5 SEEN Calcium Oxalate Crystal RARE Urine Bacteria 0 SEEN Hyaline Casts 0-5 SEEN Urine Mucus 0 SEEN Acetone Level NEGATIVE Assessment/Plan All Active Problems BRENNEN (acute kidney injury) (Acute) Hyperkalemia (Acute) Altered mental status (Acute) Generalized weakness (Acute) Multiple falls (Acute) Supratherapeutic INR (Resolved) Transaminitis (Resolved) 53 year old female w/ h/o COPD, STACY, CKD III, and DMII admitted for alter mental status. 1) ARF: Most likely azotemia. Hydration. Possible ATN from prolong azotemia. Monitor. 2) Hyperkalemia: Most likely secondary ARF. S/p calcium. Will give insulin and chelsi. Serial labs. 3) Alter mental status: Most likely secondary to opiates and methamphetamin. Supportive care. 4) Prophylaxis: SCD / Coumadin.
[2018-06-07 23:35] LABS: Prothrombin Time (Protime)PT. 31.6 SECONDS (11.7-14.9)
--- NOTE | 2018-06-07 23:38 | NURSING ---
Called ED final assembly and packing supervisor, Kelly at this time to confirm Pt okay to come to PCU.
[2018-06-08] VITALS (16 sets, daily range): BP systolic 117–168; BP diastolic 53–69; PULSE 81–108; RESP 16–18; TEMP 36.7–37.7; O2SAT 93–95; BMI 58.0
[2018-06-08] MEDS: 0.9% Normal Saline 1,000 ML 150 ML IV ×3 (00:25→18:13)
[2018-06-08 00:44] LABS: Amphetamine Urine VISTA NEGATIVE (<1000 ng/mL); Barbiturate Urine VISTA NEGATIVE (< 200 ng/mL); Benzodiazepine Urine VISTA NEGATIVE (< 200 ng/mL); Cocaine Urine VISTA NEGATIVE (< 300 ng/mL); Ecstacy Urine VISTA POSITIVE (< 500 ng/mL); Methadone Urine VISTA NEGATIVE (< 300 ng/mL); PCP Urine VISTA NEGATIVE (< 25 ng/mL); THC Urine VISTA NEGATIVE (< 50 ng/mL); Vista UDS pH Range 5
[2018-06-08] MEDS: Dextrose 10%-Water 250 ML 125 ML IV (05:54)
[2018-06-08] MEDS: Levothyroxine 100 MCG Tablet PO (05:56)
[2018-06-08] MEDS: Sodium Polystyrene Sulfonate 15 GM/60 ML UDC 30 GM PO (06:06)
[2018-06-08] MEDS: Polyethylene Glycol 3350 17 GM PACKET 34 GM PO (06:07)
[2018-06-08] MEDS: Dextrose 50%-Water 25 GM/50 ML DISP.SYRIN IV (06:07)
[2018-06-08 06:20] LABS: Bedside Glucose 128 mg/dL (70-110)
[2018-06-08 06:59] LABS: Prothrombin Time (Protime)PT. 35.3 SECONDS (11.7-14.9)
[2018-06-08 07:07] LABS: International Normalized Ratio 3.5
[2018-06-08 07:16] LABS: Anion Gap 10 (5-15); BUN 83 mg/dL (7-18); BUN/Creat Ratio 16.9 RATIO (10-20); Calcium,Total 10.4 mg/dL (8.5-10.1); Chloride 98 mmol/L (98-107); Creatinine, Serum 4.91 mg/dL (0.55-1.02); EST Glomerular Filtration Rate 10 mL/min (>60); Est Glom Filt Rate - Afr Amer 12 mL/min (>60); Estimated Creatinine Clearance 9.74 ml/min; Glucose 201 mg/dL (74-106); Potassium 5.6 mmol/L (3.5-5.1); Sodium Level 131 mmol/L (136-145)
[2018-06-08] MEDS: 0.9% NaCl Peripheral Flush Adult/Peds IV (07:57)
[2018-06-08] MEDS: QUEtiapine 25 MG Tablet PO (08:32)
[2018-06-08] MEDS: Escitalopram Oxalate 20 MG Tablet PO (08:32)
[2018-06-08] MEDS: Pantoprazole Sodium 40 MG Tablet PO (08:32)
[2018-06-08] MEDS: Topiramate 50 MG Tablet PO ×2 (08:32→22:29)
[2018-06-08] MEDS: Gabapentin 300 MG Capsule PO ×2 (08:32→11:25)
[2018-06-08] MEDS: Hydroxychloroquine 200 MG Tablet PO (08:32)
[2018-06-08] MEDS: Glucerna Shake 120 ML LIQUID PO ×4 (08:34→22:30)
--- NOTE | 2018-06-08 11:00 | NURSING ---
Patient resting quietly at this time. Left hand noted to be edematous and cool at IV site. NS@ 150cc/hr stopped. IV to left hand and left wrist removed at this time. Left arm elevated with pillow. Warm blankets applied to hand. Patient denies loss of sensation to hand. Will notify physician. Will continue to monitor patient.
--- NOTE | 2018-06-08 11:19 | CASEMGMT ---
SW was going to see patient, but she is confused and not able to answer questions appropriately. SW called patient's and left a voice mail with SW's name and number. Samantha SHARPE MSW
[2018-06-08] MEDS: Acetaminophen 325 MG Tablet 650 MG PO ×2 (11:35→18:35)
--- NOTE | 2018-06-08 12:11 | CASEMGMT ---
DAMON received return call from patient's . He said patient no longer qualifies for Medicaid. He said some of their medications are expensive. DAMON told him about [email or web address] and [facility]. He also said patient was active with [facility], but her student went back home for the summer and they have not heard from anyone. DAMON told them DAMON can check on this on Sunday. Patient's said he has his hands full as his dad is at a mcfp and his mom is still living at her condo. He is helping care for her. He was not sure about d/c plan at this time. DAMON told him DAMON and RN STEPHON will follow for d/c needs. Samantha SHARPE MSW
--- NOTE | 2018-06-08 12:40 | PCM.PN.HOSP ---
Patient Problems: Active and Suspected Problems BRENNEN (acute kidney injury) (Acute) Hyperkalemia (Acute) Altered mental status (Acute) Subjective: The patient is a 53 year old female w/ h/o COPD, STACY, CKD III, and DMII admitted for altered mental status. He was unable to provide much history and history was taken from and from the chart. She was admitted for altered mental status and not run out of her pain meds 3 days prior to admission. She was found to be unarousable by her and was also made to not to be drinking much water. She was found to have a nightly admission has been managed for AK. Patient seen and examined. She still appears quite confused and also kept on saying was I'm trying to get myself together repeatedly. Unable to do review of systems as patient is confused. Vitals/I&O's: Vital Signs Temp Pulse Resp BP Pulse Ox 98.1 F 104 H 16 168/69 H 93 06/08/18 10:15 06/08/18 11:15 06/08/18 10:15 06/08/18 10:15 06/08/18 10:15 Oxygen Flow Rate (L/min) 3 Oxygen Delivery Method Nasal Cannula Weight: 297 lb 2.93 oz Body Mass Index (BMI) 58.0 Intake and Output for Last 24 Hours 06/06/18 06/07/18 06/08/18 23:59 23:59 23:59 Intake Total 2053 Output Total 1100 / 1100 2124 / 2124 Balance -1100 / -1100 -71 / -71 General: Alert, Oriented x3, Cooperative, No apparent distress HEENT: Atraumatic, PERRLA, EOMI, Normocephalic Oral: Moist Mucosa Neck: Supple, No JVD, Negative Carotid Bruits Lungs: Clear to auscultation, Normal air movement, No rhonchi, No wheeze, No rales Cardiovascular: Regular rate, Regular Rhythm, Normal S1, Normal S2, No murmurs Abdomen: Bowel Sounds Present, Soft, Non Tender, Non-Distended, No Hepato-splenomegaly, Obese Extremities: No clubbing, No cyanosis, No edema, Capillary Refill Less than 3 Seconds Skin: No rashes, No breakdown Musculoskeletal: No Tenderness to Palpation of Joints or Extremities Lymphatic: No Cervical, Supraclavicular, or Inguinal Adenopathy Neurological: Cranial nerves II-XII grossly intact Psych/Mental Status: Flat Affect Laboratory Results 06/08/18 06:05: POC Glucose 128 H 06/08/18 06:32: PT 35.3 H, INR 3.5 H* 06/08/18 06:32: Sodium 131 L, Potassium 5.6 H, Chloride 98, Carbon Dioxide 23.0, Anion Gap 10, BUN 83 H, Creatinine 4.91 H, Estim Creat Clear Calc 9.74, Est GFR (MDRD) Af Amer 12 L, Est GFR (MDRD) Non-Af 10 L, BUN/Creatinine Ratio 16.9, Glucose 201 H, Calcium 10.4 H Current Medications Acetaminophen (Tylenol) 650 mg PO Q4H PRN PRN PRN Reason: PAIN Last Admin: 06/08/18 11:35 Dose: 650 mg Albuterol Sulfate (Ventolin Aerosols) 2.5 mg INHALATION Q4H PRN PRN PRN Reason: SOB &/OR WHEEZING Atorvastatin Calcium (Lipitor) 10 mg PO QHS [facility] Dicyclomine HCl (Bentyl) 10 mg PO 4X/DAY PRN PRN Reason: CRAMPING Escitalopram Oxalate (Lexapro) 20 mg PO DAILY [facility] Last Admin: 06/08/18 08:32 Dose: 20 mg Gabapentin (Neurontin) 300 mg PO TIDCM [facility] Last Admin: 06/08/18 11:25 Dose: 300 mg Hydroxychloroquine Sulfate (Plaquenil) 200 mg PO DAILY [facility] Last Admin: 06/08/18 08:32 Dose: 200 mg Sodium Chloride () 1,000 mls @ 150 mls/hr IV .Q6H40M [facility] Last Admin: 06/08/18 05:54 Dose: 150 mls/hr Levothyroxine Sodium (Synthroid) 100 mcg PO DAILY@0600 [facility] Last Admin: 06/08/18 05:56 Dose: 100 mcg Loratadine (Claritin) 10 mg PO QHS [facility] Magnesium Hydroxide (Milk Of Magnesia) 30 ml PO DAILY PRN PRN Reason: Constipation Nutritional Formula (Lactose Free) (Glucerna Shake) 120 ml PO 4X/DAY [facility] Last Admin: 06/08/18 08:34 Dose: 120 ml Pantoprazole Sodium (Protonix) 40 mg PO DAILY [facility] Last Admin: 06/08/18 08:32 Dose: 40 mg Polyethylene Glycol (Miralax) 34 gm PO X1 PRN PRN Reason: Bowel Movement Quetiapine Fumarate (Seroquel) 25 mg PO BID [facility] Last Admin: 06/08/18 08:32 Dose: 25 mg Sodium Chloride () 5 - 30 ml IV UD PRN PRN Reason: SALINE FLUSH Last Admin: 06/08/18 07:57 Dose: 10 ml Topiramate (Topamax) 50 mg PO BID [facility] Last Admin: 06/08/18 08:32 Dose: 50 mg Warfarin Sodium (Coumadin (Pbkc)) 5 mg PO SuMoWeFrSa@1700 [facility] Warfarin Sodium (Coumadin (Pbkc)) 7.5 mg PO TuTh@1700 [facility] Medical Necessity - Tobacco Use Smoking Status: Never smoker Assessment/Plan All Active Problems BRENNEN (acute kidney injury) (Acute) Hyperkalemia (Acute) Altered mental status (Acute) Generalized weakness (Acute) Multiple falls (Acute) Supratherapeutic INR (Resolved) Transaminitis (Resolved) 53-year-old female admitted from home with complaint of altered mental status per her . History was limited as patient was confused. 1. BRENNEN on CKD likely due to decreased intake patient noted to drink little water, per admission note patient quite confused, so unable to give me much of a history Cr on admission was 5.9, was down to 4.91 this morning. will check urine urea and creatinine to determine if its pre-renal or otherwise with FeUrea will check kidney ultrasound continue IVF NS @ 150cc/hr nephrology consult 2. Hyperkalemia likely due to BRENNEN on CKD. K was 5.9 on admission, now down to 5.6 will give kayexalate and monitor 3. ALtered mental status likely medicaiton induced Was on opiates at home. Also on Neurontin per med rec. Will hold Neurontin and opiates and monitor. CT head showed chronic involutional changes and no acute process 4. Hypercalcemia Na was 11.1 on admission, now down to 10.4 likely due to kidney impairment. Will monitor with hydration will hold lasix due to BRENNEN. will monitor 5. ?SLE; patient on hydroxychloroquine, reason is unclear. Will continue 6. history of thrombotic disorder: on coumadin, reason not clear. INR was 3.5 on admission. Will hold coumadin and monitor INR 7. Diabetes: on insulin 40IU bid and lispro 30IU tidwm. Accuchecks ACHS. ISS 7. DVT prophylaxis: SCDs. Code Visit Inpatient E&M: 00768 Subs Hosp L3
--- NOTE | 2018-06-08 12:43 | PN_ITS ---
Patient Problems: Active and Suspected Problems BRENNEN (acute kidney injury) (Acute) Hyperkalemia (Acute) Altered mental status (Acute) Subjective: The patient is a 53 year old female w/ h/o COPD, STACY, CKD III, and DMII admitted for altered mental status. He was unable to provide much history and history was taken from and from the chart. She was admitted for altered mental status and not run out of her pain meds 3 days prior to admission. She was found to be unarousable by her and was also made to not to be drinking much water. She was found to have a nightly admission has been managed for AK. Patient seen and examined. She still appears quite confused and also kept on saying was I'm trying to get myself together repeatedly. Unable to do review of systems as patient is confused. Vitals/I&O's: Vital Signs Temp Pulse Resp BP Pulse Ox 98.1 F 104 H 16 168/69 H 93 06/08/18 10:15 06/08/18 11:15 06/08/18 10:15 06/08/18 10:15 06/08/18 10:15 Oxygen Flow Rate (L/min) 3 Oxygen Delivery Method Nasal Cannula Weight: 297 lb 2.93 oz Body Mass Index (BMI) 58.0 Intake and Output for Last 24 Hours 06/06/18 06/07/18 06/08/18 23:59 23:59 23:59 Intake Total 2053 Output Total 1100 / 1100 2124 / 2124 Balance -1100 / -1100 -71 / -71 General: Alert, Oriented x3, Cooperative, No apparent distress HEENT: Atraumatic, PERRLA, EOMI, Normocephalic Oral: Moist Mucosa Neck: Supple, No JVD, Negative Carotid Bruits Lungs: Clear to auscultation, Normal air movement, No rhonchi, No wheeze, No rales Cardiovascular: Regular rate, Regular Rhythm, Normal S1, Normal S2, No murmurs Abdomen: Bowel Sounds Present, Soft, Non Tender, Non-Distended, No Hepato- splenomegaly, Obese Extremities: No clubbing, No cyanosis, No edema, Capillary Refill Less than 3 Seconds Skin: No rashes, No breakdown Musculoskeletal: No Tenderness to Palpation of Joints or Extremities Lymphatic: No Cervical, Supraclavicular, or Inguinal Adenopathy Neurological: Cranial nerves II-XII grossly intact Psych/Mental Status: Flat Affect Laboratory Results 06/08/18 06:05: POC Glucose 128 H 06/08/18 06:32: PT 35.3 H, INR 3.5 H* 06/08/18 06:32: Sodium 131 L, Potassium 5.6 H, Chloride 98, Carbon Dioxide 23.0 , Anion Gap 10, BUN 83 H, Creatinine 4.91 H, Estim Creat Clear Calc 9.74, Est GFR (MDRD) Af Amer 12 L, Est GFR (MDRD) Non-Af 10 L, BUN/Creatinine Ratio 16.9, Glucose 201 H, Calcium 10.4 H Current Medications Acetaminophen (Tylenol) 650 mg PO Q4H PRN PRN PRN Reason: PAIN Last Admin: 06/08/18 11:35 Dose: 650 mg Albuterol Sulfate (Ventolin Aerosols) 2.5 mg INHALATION Q4H PRN PRN PRN Reason: SOB &/OR WHEEZING Atorvastatin Calcium (Lipitor) 10 mg PO QHS [facility] Dicyclomine HCl (Bentyl) 10 mg PO 4X/DAY PRN PRN Reason: CRAMPING Escitalopram Oxalate (Lexapro) 20 mg PO DAILY [facility] Last Admin: 06/08/18 08:32 Dose: 20 mg Gabapentin (Neurontin) 300 mg PO TIDCM [facility] Last Admin: 06/08/18 11:25 Dose: 300 mg Hydroxychloroquine Sulfate (Plaquenil) 200 mg PO DAILY [facility] Last Admin: 06/08/18 08:32 Dose: 200 mg Sodium Chloride () 1,000 mls @ 150 mls/hr IV .Q6H40M [facility] Last Admin: 06/08/18 05:54 Dose: 150 mls/hr Levothyroxine Sodium (Synthroid) 100 mcg PO DAILY@0600 [facility] Last Admin: 06/08/18 05:56 Dose: 100 mcg Loratadine (Claritin) 10 mg PO QHS [facility] Magnesium Hydroxide (Milk Of Magnesia) 30 ml PO DAILY PRN PRN Reason: Constipation Nutritional Formula (Lactose Free) (Glucerna Shake) 120 ml PO 4X/DAY [facility] Last Admin: 06/08/18 08:34 Dose: 120 ml Pantoprazole Sodium (Protonix) 40 mg PO DAILY [facility] Last Admin: 06/08/18 08:32 Dose: 40 mg Polyethylene Glycol (Miralax) 34 gm PO X1 PRN PRN Reason: Bowel Movement Quetiapine Fumarate (Seroquel) 25 mg PO BID [facility] Last Admin: 06/08/18 08:32 Dose: 25 mg Sodium Chloride () 5 - 30 ml IV UD PRN PRN Reason: SALINE FLUSH Last Admin: 06/08/18 07:57 Dose: 10 ml Topiramate (Topamax) 50 mg PO BID [facility] Last Admin: 06/08/18 08:32 Dose: 50 mg Warfarin Sodium (Coumadin (Pbkc)) 5 mg PO SuMoWeFrSa@1700 [facility] Warfarin Sodium (Coumadin (Pbkc)) 7.5 mg PO TuTh@1700 [facility] Medical Necessity - Tobacco Use Smoking Status: Never smoker Assessment/Plan All Active Problems BRENNEN (acute kidney injury) (Acute) Hyperkalemia (Acute) Altered mental status (Acute) Generalized weakness (Acute) Multiple falls (Acute) Supratherapeutic INR (Resolved) Transaminitis (Resolved) 53-year-old female admitted from home with complaint of altered mental status per her . History was limited as patient was confused. 1. BRENNEN on CKD likely due to decreased intake * patient noted to drink little water, per admission note * patient quite confused, so unable to give me much of a history * Cr on admission was 5.9, was down to 4.91 this morning. * will check urine urea and creatinine to determine if its pre-renal or otherwise with FeUrea * will check kidney ultrasound * continue IVF NS @ 150cc/hr * nephrology consult * 2. Hyperkalemia * likely due to BRENNEN on CKD. K was 5.9 on admission, now down to 5.6 * will give kayexalate and monitor * 3. ALtered mental status likely medicaiton induced * Was on opiates at home. Also on Neurontin per med rec. Will hold Neurontin and opiates and monitor. * CT head showed chronic involutional changes and no acute process * 4. Hypercalcemia * Na was 11.1 on admission, now down to 10.4 * likely due to kidney impairment. Will monitor with hydration * will hold lasix due to BRENNEN. * will monitor * 5. ?SLE; patient on hydroxychloroquine, reason is unclear. Will continue 6. history of thrombotic disorder: on coumadin, reason not clear. INR was 3.5 on admission. Will hold coumadin and monitor INR 7. Diabetes: on insulin 40IU bid and lispro 30IU tidwm. Accuchecks ACHS. ISS 7. DVT prophylaxis: SCDs. Code Visit Inpatient E&M: 87639 Subs Hosp L3
--- NOTE | 2018-06-08 12:56 | US_ITS ---
STUDY: RENAL ULTRASOUND - COMPLETE REASON FOR EXAM: Female, 53 years old. ARF TECHNIQUE: Ultrasound evaluation of the kidneys was performed with real-time and static gonzalez-scale imaging. COMPARISON: None. FINDINGS: RIGHT KIDNEY: Normal location of the right kidney, which is normal in size. The right kidney measures 9.5X4.7X5.6 cm. There is a normal cortex of the right kidney. The renal cortex measures 1.2 cm. There is no right renal mass or cyst. There are no right renal calculi. There is no right hydronephrosis. Prominent right column of Lew. DISTAL RIGHT URETER: There is non-visualization of the distal right ureter. There is no demonstrated right ureterovesical junction calculus. There is no demonstrated right ureteral jet. LEFT KIDNEY: Normal location of the left kidney, which is normal in size. The left kidney measures 9.8X4.1X3.3 cm. There is a normal cortex of the left kidney. The renal cortex measures 1.2 cm. There is no left renal mass or cyst. There are no left renal calculi. There is no left hydronephrosis. DISTAL LEFT URETER: There is non-visualization of the distal left ureter. There is no demonstrated left ureterovesical junction calculus. There is no demonstrated left ureteral jet. AORTA: There is obscuration of the abdominal aorta by overlying bowel gas I.V.C.: The IVC is obscured. BLADDER: There is a Dickey balloon catheter in the urinary bladder. US/Kidney and Bladder IMPRESSION: Normal ultrasound of the kidneys and urinary bladder. Electronically Signed: Chapin Jett MD at 16:03 EDT , Service support ,
[2018-06-08 14:10] LABS: Urea Nitrogen, Urine 572 mg/dL (NO RANGE EST.)
--- NOTE | 2018-06-08 15:29 | PCM.CONS.R ---
Consultation - Renal 06/08/18 PCP/ Referring MD: Requesting physician: Dr Early Primary care physician: Erna Grier Reason for Consultation:: BRENNEN - History of Present Illness History of Present Illness: The patient is a 53 year old F known to me with history of CKD stage 3, DM2,, HTN, chronic depression, Hx PE, DVT on anticoagulation, RA, STACY, morbid obesity presents with confusion, disorientation with renal failure, hyerkalemia. She is on ACEI, diuretics, potassium supplements with history of swelling. Currently appears dry, confused, unable to provide history. Medication list includes gabapentin, serquel, narcotics, muscle relaxer. Baseline creatinine 1.6 on 05/27 increased to 5.9 on admit improved to 3.29 with iv hydration and discontinuation of diuretics, ACEi. She is nonoliguric with parikh bag. No recent iv contrast exposure. BP stable. Potassium improved from 5.9 on admit to 5.3 today. - Allergies Allergies: Allergies hydrogen peroxide Allergy (Verified 02/04/18 15:07) Rash Sulfa (Sulfonamide Antibiotics) Allergy (Verified 02/04/18 15:07) Hives iodine Adverse Reaction (Verified 02/04/18 15:07) burning (topical) vitamin k Allergy (Uncoded 04/08/17 09:57) Swelling/burning around injection site - Current Medications Current Medications: Current Medications Acetaminophen (Tylenol) 650 mg PO Q4H PRN PRN PRN Reason: PAIN Last Admin: 06/08/18 11:35 Dose: 650 mg Albuterol Sulfate (Ventolin Aerosols) 2.5 mg INHALATION Q4H PRN PRN PRN Reason: SOB &/OR WHEEZING Albuterol Sulfate (Ventolin Aerosols) 2.5 mg INHALATION Q6HWA.RT [facility] Ascorbic Acid (Vitamin C) 500 mg PO DAILY@1200 [facility] Atorvastatin Calcium (Lipitor) 10 mg PO QHS [facility] Budesonide (Pulmicort Aerosol) 0.5 mg INHALATION Q12H.RT [facility] Calamine/Phenol (Calmoseptine Ointment) 1 applic TOPICAL TID [facility] PRN Reason: Protocol Cholecalciferol (Vitamin D) 1,000 unit PO DAILYCM [facility] Dicyclomine HCl (Bentyl) 10 mg PO 4X/DAY PRN PRN Reason: CRAMPING Escitalopram Oxalate (Lexapro) 20 mg PO DAILY [facility] Last Admin: 06/08/18 08:32 Dose: 20 mg Hydroxychloroquine Sulfate (Plaquenil) 200 mg PO DAILY [facility] Last Admin: 06/08/18 08:32 Dose: 200 mg Sodium Chloride () 1,000 mls @ 150 mls/hr IV .Q6H40M [facility] Last Admin: 06/08/18 05:54 Dose: 150 mls/hr Levothyroxine Sodium (Synthroid) 100 mcg PO DAILY@0600 [facility] Last Admin: 06/08/18 05:56 Dose: 100 mcg Loratadine (Claritin) 10 mg PO QHS [facility] Magnesium Hydroxide (Milk Of Magnesia) 30 ml PO DAILY PRN PRN Reason: Constipation Non-Formulary Medication (Sucralfate [Sucralfate]) 10 ml PO PRN PRN PRN Reason: STOMACH Nutritional Formula (Lactose Free) (Glucerna Shake) 120 ml PO 4X/DAY [facility] Last Admin: 06/08/18 14:29 Dose: 120 ml Nystatin (Mycostatin Powder) 1 applic TOPICAL BID [facility] PRN Reason: Protocol Pantoprazole Sodium (Protonix) 40 mg PO DAILY [facility] Last Admin: 06/08/18 08:32 Dose: 40 mg Polyethylene Glycol (Miralax) 34 gm PO X1 PRN PRN Reason: Bowel Movement Quetiapine Fumarate (Seroquel) 200 mg PO QHS [facility] Quetiapine Fumarate (Seroquel) 25 mg PO BID@0600,1200 [facility] Sodium Chloride () 5 - 30 ml IV UD PRN PRN Reason: SALINE FLUSH Last Admin: 06/08/18 07:57 Dose: 10 ml Topiramate (Topamax) 50 mg PO BID [facility] Last Admin: 06/08/18 08:32 Dose: 50 mg Verapamil HCl (Calan) 40 mg PO TID [facility] Last Admin: 06/08/18 14:29 Dose: 40 mg Vitamin [facility] ([facility]itamin E) [facility] - Past Medical History Past Medical History (Chronic Problems): Chronic Problems Obesity, morbid, BMI 40.0-49.9 (Chronic) Peripheral neuropathy (Chronic) CKD (chronic kidney disease) stage 3, GFR 30-59 ml/min (Chronic) IBS (irritable bowel syndrome) (Chronic) Fibromyalgia syndrome (Chronic) GERD (gastroesophageal reflux disease) (Chronic) Sleep apnea (Chronic) O2 at night claustrophobic Depression (Chronic) Diverticulosis (Chronic) Chronic back pain (Chronic) Asthma (Chronic) Diabetes (Chronic) - Past Surgical History Surgical History: cholecystectomy, hysterectomy, - - Gastric surgery for acid reflux, pain pump insertion - Social History Smoking Status: Never smoker Alcohol: None Drugs: None - Family History Maternal History Items: No pertinent history, - Review of Systems Constitutional: Reports: Weakness Cardiovascular: Reports: Chest Pain Gastrointestinal: Denies: Diarrhea, Nausea, Vomiting Genitourinary: Denies: Dysuria Neurological: Reports: Confusion Psychiatric: Reports: Anxiety, Depression Unable to obtain accurate/complete ROS d/t: confused, poor historian Patient Problems: Active and Suspected Problems BRENNEN (acute kidney injury) (Acute) Hyperkalemia (Acute) Altered mental status (Acute) - Physical Exam General: Confused, Disoriented HEENT: PERRLA, EOMI Oral: Dry Mucosa Lungs: Clear to auscultation Cardiovascular: Regular rate Abdomen: Bowel Sounds Present, Soft, Non Tender, Non-Distended Extremities: No edema Musculoskeletal: No Muscle Wasting Neurological: Clonus, - - tremor Psych/Mental Status: Anxious, Depressed, - - confused Vital Signs Temp Pulse Resp BP Pulse Ox 98.1 F 104 H 16 168/69 H 93 06/08/18 10:15 06/08/18 11:15 06/08/18 10:15 06/08/18 10:15 06/08/18 10:15 Oxygen Flow Rate (L/min) 3 Oxygen Delivery Method Nasal Cannula Weight: 134.8 kg Body Mass Index (BMI) 58.0 Intake and Output for Last 24 Hours 06/06/18 06/07/18 06/08/18 23:59 23:59 23:59 Intake Total 2053 Output Total 1100 / 1100 2124 / 2124 Balance -1100 / -1100 -71 / -71 Laboratory Tests Past 24 Hrs 06/08/18 06/08/18 06/08/18 06:32 06:32 13:40 PT 35.3 H INR 3.5 H* Sodium 131 L Potassium 5.6 H Chloride 98 Carbon Dioxide 23.0 Anion Gap 10 BUN 83 H Creatinine 4.91 H Estim Creat Clear Calc 9.74 Est GFR (MDRD) Af Amer 12 L Est GFR (MDRD) Non-Af 10 L BUN/Creatinine Ratio 16.9 Glucose 201 H Calcium 10.4 H Urine Creatinine 60.70 Urine Urea Nitrogen 06/08/18 13:40 PT INR Sodium Potassium Chloride Carbon Dioxide Anion Gap BUN Creatinine Estim Creat Clear Calc Est GFR (MDRD) Af Amer Est GFR (MDRD) Non-Af BUN/Creatinine Ratio Glucose Calcium Urine Creatinine Urine Urea Nitrogen 572 POC Glucose 06/08/18 06:05 POC Glucose 128 H Clinical Impression(s) from Imaging Studies Clinical Impression(s) from Imaging Studies Brain CT 06/07/18 18:46 IMPRESSION: Chronic involutional changes of the brain. There are no acute findings. Electronically Signed: Chapin Jett MD at 20:23 EDT , Service support , Chest X-Ray 06/07/18 19:00 Renal Ultrasound 06/08/18 12:56 IMPRESSION: Normal ultrasound of the kidneys and urinary bladder. Electronically Signed: Chapin Jett MD at 16:03 EDT , Service support , Assessment/Plan All Active Problems BRENNEN (acute kidney injury) (Acute) Hyperkalemia (Acute) Altered mental status (Acute) Generalized weakness (Acute) Multiple falls (Acute) Supratherapeutic INR (Resolved) Transaminitis (Resolved) 1. Brennen on CKD stage 3 likely from prerenal event from medications, altered mental status with poor oral intake. Continue with ivf. Renal fxn improved from 5.9 to 3.29 today. Baseline creatinine 1.6. No need for dialysis. Currently nonoliguric. Continue to monitor renal fxn 2. Altered mental status, metabolic encephalopathy, tremors multifactoral from dehydration, renal failure, with concomitant use of narcotics/antidepressants/antipsycotics/muscle relaxers/gabapentin. CT head no acute change. 3. Hyerkalemia improving. 4. Chronic Depression 5. Dm2 6. HTN 7. Hx PE/DVT on anticoaguiation 8. Hyponatremia due to volume depletion resolved with iv fluids.
[2018-06-08] MEDS: Nystatin Powder 15gm Bottle 1 APPLIC TOPICAL ×2 (16:08→22:31)
[2018-06-08 18:06] LABS: Bedside Glucose 195 mg/dL (70-110)
[2018-06-08] MEDS: Insulin Lispro 100 UNIT/ML INSULN.PEN SQ ×2 (18:13→22:36)
[2018-06-08 18:51] LABS: Absolute Lymphocyte Count 1.74 X10^3/ul (0.83-4.51); Absolute Neutrophil Count 5.7 X10^3/uL (2.0-7.7); Basophil# 0.02 X10^3/uL; Basophil% 0.2 % (0-1); Eosinophils% 1.2 % (0-5); Hematocrit 40.3 % (37-47); Hemoglobin 13.4 g/dl (12.0-15.0); Lymphocyte # 1.74 X10^3/ul (4.0); Mean Corp Hgb Conc 33.3 g/gl (32-36); Mean Corpuscular Hgb 34.4 pg (27.0-32.0); Mean Corpuscular Volume 103.3 fL (81-99); Mean Platelet Vol. 10.3 fl (6.2-12.0); Monocyte# 0.67 X10^3/uL; Monocyte% 8.1 % (0-10); Neutrophil # 5.74 X10^3/uL (2.7-7.7); Neutrophil % 69.1 % (47-70); Platelet Count 144 K/mm3 (150-450); RBC Distribution Width CV 14.5 % (11.6-14.6); RBC Distribution Width SD 54.1 fl (35.1-43.9); White Blood Count 8.3 K/mm3 (4.4-11.0)
[2018-06-08 18:57] LABS: POSITIVE COUNT NO; POSITIVE DIFFERENTIAL NO; POSITIVE MORPHOLOGY NO
[2018-06-08 19:11] LABS: Albumin, Serum 2.7 g/dL (3.2-5.0); BUN 73 mg/dL (7-18); BUN/Creat Ratio 22.2 RATIO (10-20); Calcium,Total 10.5 mg/dL (8.5-10.1); Chloride 103 mmol/L (98-107); Creatinine, Serum 3.29 mg/dL (0.55-1.02); EST Glomerular Filtration Rate 16 mL/min (>60); Est Glom Filt Rate - Afr Amer 19 mL/min (>60); Estimated Creatinine Clearance 14.53 ml/min; Glucose 217 mg/dL (74-106); Phosphorus 5.6 mg/dL (2.5-4.9); Potassium 5.3 mmol/L (3.5-5.1); Sodium Level 140 mmol/L (136-145)
[2018-06-08] MEDS: Budesonide Respules 0.5 MG/2 ML AMPUL.NEB. INHALATION (19:34)
[2018-06-08] MEDS: Albuterol 2.5 MG/3 ML VIAL.NEB. INHALATION (19:34)
[2018-06-08] MEDS: Atorvastatin Calcium 10 MG Tablet PO (22:29)
[2018-06-08] MEDS: QUEtiapine 100 MG Tablet 200 MG PO (22:29)
[2018-06-08] MEDS: Loratadine 10 MG Tablet PO (22:30)
[2018-06-08] MEDS: Menthol/Lanolin/Calamine/Znox 113 GM Tube 1 APPLIC TOPICAL (22:30)
[2018-06-08 22:45] LABS: Bedside Glucose 206 mg/dL (70-110)
[2018-06-09] VITALS (14 sets, daily range): BP systolic 134–153; BP diastolic 60–72; PULSE 79–106; RESP 16–23; TEMP 36.7–37.3; O2SAT 94–98
[2018-06-09] MEDS: 0.9% Normal Saline 1,000 ML 150 ML IV ×2 (00:54→07:04)
[2018-06-09] MEDS: Levothyroxine 100 MCG Tablet PO (06:08)
[2018-06-09] MEDS: Menthol/Lanolin/Calamine/Znox 113 GM Tube 1 APPLIC TOPICAL ×3 (06:08→21:50)
[2018-06-09] MEDS: QUEtiapine 25 MG Tablet PO ×2 (06:08→11:49)
[2018-06-09 07:00] LABS: International Normalized Ratio 2.3; Prothrombin Time (Protime)PT. 25.4 SECONDS (11.7-14.9)
[2018-06-09] MEDS: Budesonide Respules 0.5 MG/2 ML AMPUL.NEB. INHALATION ×2 (07:08→19:41)
[2018-06-09] MEDS: Albuterol 2.5 MG/3 ML VIAL.NEB. INHALATION ×3 (07:08→19:42)
[2018-06-09 07:10] LABS: Bedside Glucose 177 mg/dL (70-110)
[2018-06-09 07:56] LABS: Absolute Lymphocyte Count 1.65 X10^3/ul (0.83-4.51); Absolute Neutrophil Count 4.8 X10^3/uL (2.0-7.7); Basophil# 0.02 X10^3/uL; Basophil% 0.3 % (0-1); Eosinophil# 0.08 X10^3/uL; Eosinophils% 1.1 % (0-5); Hematocrit 39.3 % (37-47); Hemoglobin 12.9 g/dl (12.0-15.0); Lymphocyte # 1.65 X10^3/ul (4.0); Lymphocyte % 22.8 % (19-41); Mean Corp Hgb Conc 32.8 g/gl (32-36); Mean Corpuscular Hgb 34.4 pg (27.0-32.0); Mean Corpuscular Volume 104.8 fL (81-99); Mean Platelet Vol. 10.1 fl (6.2-12.0); Monocyte# 0.64 X10^3/uL; Monocyte% 8.9 % (0-10); Neutrophil # 4.79 X10^3/uL (2.7-7.7); Neutrophil % 66.2 % (47-70); Platelet Count 130 K/mm3 (150-450); RBC Distribution Width CV 14.6 % (11.6-14.6); RBC Distribution Width SD 54.6 fl (35.1-43.9); Red Blood Count 3.75 M/mm3 (4.2-5.4); White Blood Count 7.2 K/mm3 (4.4-11.0)
[2018-06-09 08:02] LABS: POSITIVE COUNT NO; POSITIVE DIFFERENTIAL NO; POSITIVE MORPHOLOGY NO
[2018-06-09 08:14] LABS: Albumin, Serum 2.6 g/dL (3.2-5.0); BUN 57 mg/dL (7-18); BUN/Creat Ratio 25.9 RATIO (10-20); Calcium,Total 9.8 mg/dL (8.5-10.1); Chloride 107 mmol/L (98-107); EST Glomerular Filtration Rate 25 mL/min (>60); Est Glom Filt Rate - Afr Amer 30 mL/min (>60); Estimated Creatinine Clearance 21.73 ml/min; Glucose 180 mg/dL (74-106); Phosphorus 3.2 mg/dL (2.5-4.9); Potassium 4.7 mmol/L (3.5-5.1); Sodium Level 143 mmol/L (136-145)
[2018-06-09] MEDS: Insulin Lispro 100 UNIT/ML INSULN.PEN SQ ×4 (08:17→22:23)
[2018-06-09] MEDS: Vitamin E 400 UNITS Capsule PO (08:17)
--- NOTE | 2018-06-09 09:08 | RAD_ITS ---
STUDY: X-RAY - LEFT HAND REASON FOR EXAM: Female, 53 years old. Left hand redness and swelling. Previous IV site removed. TECHNIQUE: 3 view(s) of the hand. COMPARISON: None. FINDINGS: Normal radiocarpal articulation. Normal distal radioulnar joint. Normal visualized carpal bones. Normal carpal articulations Normal carpometacarpal articulation of the thumb. Normal second through fifth carpometacarpal joints. Normal metacarpi. Normal metacarpophalangeal joint of the thumb. Normal interphalangeal joint of the thumb. Normal proximal and distal phalanges of the thumb. Normal metacarpophalangeal joints of the second through fifth fingers. Diffuse narrowing of the proximal and distal interphalangeal joints of the second through fifth fingers. Normal phalanges of the second through fifth fingers. Soft tissue swelling in the dorsum of the hand. No radiopaque foreign bodies. RAD/Hand Min 3 Views IMPRESSION: 1. Soft tissue swelling in the dorsum of the hand without radiopaque foreign bodies. 2. No radiographic evidence of osteomyelitis or acute osseous abnormality. Electronically Signed: Alin Rosa MD at 9:39 EDT , Service support ,
[2018-06-09] MEDS: Glucerna Shake 120 ML LIQUID PO ×4 (10:25→21:49)
[2018-06-09] MEDS: Hydroxychloroquine 200 MG Tablet PO (10:26)
[2018-06-09] MEDS: Pantoprazole Sodium 40 MG Tablet PO (10:26)
[2018-06-09] MEDS: Escitalopram Oxalate 20 MG Tablet PO (10:26)
[2018-06-09] MEDS: Topiramate 50 MG Tablet PO ×2 (10:26→21:48)
[2018-06-09] MEDS: Docusate Sodium 100 MG Capsule PO (10:27)
[2018-06-09] MEDS: Senna Tablet 1 TABLET PO (10:28)
--- NOTE | 2018-06-09 10:30 | NURSING ---
Dickey removed at this time. Patient tolerated without complaint of discomfort. Denies other needs.
[2018-06-09] MEDS: Nystatin Powder 15gm Bottle 1 APPLIC TOPICAL ×2 (10:36→21:53)
[2018-06-09] MEDS: Acetaminophen 325 MG Tablet 650 MG PO ×3 (10:49→22:24)
[2018-06-09] MEDS: Ascorbic Acid 500 MG Tablet PO (11:49)
[2018-06-09 12:00] LABS: Bedside Glucose 190 mg/dL (70-110)
--- NOTE | 2018-06-09 13:49 | PCM.PN.HOSP ---
Patient Problems: Active and Suspected Problems BRENNEN (acute kidney injury) (Acute) Hyperkalemia (Acute) Altered mental status (Acute) Subjective: The patient is a 53 year old female w/ h/o COPD, STACY, CKD III, and DMII admitted for altered mental status. He was unable to provide much history and history was taken from and from the chart. She was admitted for altered mental status and not run out of her pain meds 3 days prior to admission. She was found to be unarousable by her and was also said not to be drinking much water. He was found to have AK on admission is being managed for AK I likely prerenal due to reduced intake. Patient seen and examined this morning she says she feels better and was much more alert and oriented. She was able to answer questions and denied having any complaints from last night. She denied any fever or chills, any shortness of breath, any cough or chest pain, any abdominal pain, any diarrhea vomiting. Review of systems otherwise negative. Vitals/I&O's: Vital Signs Temp Pulse Resp BP Pulse Ox 98.1 F 92 23 H 138/60 H 94 06/09/18 09:38 06/09/18 13:00 06/09/18 13:00 06/09/18 09:38 06/09/18 09:38 Oxygen Flow Rate (L/min) 3 Oxygen Delivery Method Nasal Cannula Weight: 297 lb 2.93 oz Body Mass Index (BMI) 58.0 Intake and Output for Last 24 Hours 06/07/18 06/08/18 06/09/18 23:59 23:59 23:59 Intake Total 3285 / 3285 2164 / 2164 Output Total 1100 / 1100 3425 / 3425 1999 / 1999 Balance -1100 / -1100 -140 / -140 164 / 164 General: Alert, Oriented x3, Cooperative HEENT: Atraumatic, PERRLA, EOMI, Normocephalic Oral: Moist Mucosa Neck: Supple, No JVD, Negative Carotid Bruits Lungs: Clear to auscultation, Normal air movement, No rhonchi, No wheeze, No rales Cardiovascular: Regular rate, Regular Rhythm, Normal S1, Normal S2, No murmurs Abdomen: Bowel Sounds Present, Soft, Non Tender, Non-Distended, No Hepato-splenomegaly, Obese Extremities: No clubbing, No cyanosis, No edema, Capillary Refill Less than 3 Seconds Skin: No rashes, No breakdown Musculoskeletal: - - right hand swollen, mildly erythematous- thought to be due to extravasation of IVF into right hand. right radial pulse is strong and palpable. Lymphatic: No Cervical, Supraclavicular, or Inguinal Adenopathy Neurological: Cranial nerves II-XII grossly intact Psych/Mental Status: Normal Affect, Appropriate, Alert and oriented to time, place, person, mood and affect Laboratory Results 06/08/18 13:40: Urine Creatinine 60.70 06/08/18 13:40: Urine Urea Nitrogen 572 06/08/18 17:31: POC Glucose 195 H 06/08/18 18:40: WBC 8.3, RBC 3.90 L, Hgb 13.4, Hct 40.3, MCV 103.3 H, MCH 34.4 H, MCHC 33.3, RDW 14.5, RDW Differential 54.1 H, Plt Count 144 L, MPV 10.3, Immature Gran % (Auto) 0.400, Neut % (Auto) 69.1, Lymph % (Auto) 21.0, Ward % (Auto) 8.1, Eos % (Auto) 1.2, Baso % (Auto) 0.2, Absolute Neuts (auto) 5.7, Absolute Lymphs (auto) 1.74, Total Counted Not Reportable 06/08/18 18:40: Sodium 140, Potassium 5.3 H, Chloride 103, Carbon Dioxide 26.0, BUN 73 H, Creatinine 3.29 H, Estim Creat Clear Calc 14.53, Est GFR (MDRD) Af Amer 19 L, Est GFR (MDRD) Non-Af 16 L, BUN/Creatinine Ratio 22.2 H, Glucose 217 H, Calcium 10.5 H, Phosphorus 5.6 H, Albumin 2.7 L 06/08/18 22:34: POC Glucose 206 H 06/09/18 05:35: PT 25.4 H, INR 2.3 06/09/18 07:06: POC Glucose 177 H 06/09/18 07:33: WBC 7.2, RBC 3.75 L, Hgb 12.9, Hct 39.3, MCV 104.8 H, MCH 34.4 H, MCHC 32.8, RDW 14.6, RDW Differential 54.6 H, Plt Count 130 L, MPV 10.1, Immature Gran % (Auto) 0.700, Neut % (Auto) 66.2, Lymph % (Auto) 22.8, Ward % (Auto) 8.9, Eos % (Auto) 1.1, Baso % (Auto) 0.3, Absolute Neuts (auto) 4.8, Absolute Lymphs (auto) 1.65, Total Counted Not Reportable 06/09/18 07:33: Sodium 143, Potassium 4.7, Chloride 107, Carbon Dioxide 27.0, BUN 57 H, Creatinine 2.20 H, Estim Creat Clear Calc 21.73, Est GFR (MDRD) Af Amer 30 L, Est GFR (MDRD) Non-Af 25 L, BUN/Creatinine Ratio 25.9 H, Glucose 180 H, Calcium 9.8, Phosphorus 3.2, Albumin 2.6 L 06/09/18 11:48: POC Glucose 190 H Diagnostic Data Brain CT 06/07/18 18:46 IMPRESSION: Chronic involutional changes of the brain. There are no acute findings. Electronically Signed: Chapin Jett MD at 20:23 EDT , Service support , Chest X-Ray 06/07/18 19:00 Renal Ultrasound 06/08/18 12:56 IMPRESSION: Normal ultrasound of the kidneys and urinary bladder. Electronically Signed: Chapin Jett MD at 16:03 EDT , Service support , Hand X-Ray 06/09/18 09:08 IMPRESSION: 1. Soft tissue swelling in the dorsum of the hand without radiopaque foreign bodies. 2. No radiographic evidence of osteomyelitis or acute osseous abnormality. Electronically Signed: Alin Rosa MD at 9:39 EDT , Service support , Current Medications Acetaminophen (Tylenol) 650 mg PO Q4H PRN PRN PRN Reason: PAIN Last Admin: 06/09/18 10:49 Dose: 650 mg Albuterol Sulfate (Ventolin Aerosols) 2.5 mg INHALATION Q4H PRN PRN PRN Reason: SOB &/OR WHEEZING Albuterol Sulfate (Ventolin Aerosols) 2.5 mg INHALATION Q6HWA.RT [facility] Last Admin: 06/09/18 13:00 Dose: 2.5 mg Ascorbic Acid (Vitamin C) 500 mg PO DAILY@1200 [facility] Last Admin: 06/09/18 11:49 Dose: 500 mg Atorvastatin Calcium (Lipitor) 10 mg PO QHS [facility] Last Admin: 06/08/18 22:29 Dose: 10 mg Budesonide (Pulmicort Aerosol) 0.5 mg INHALATION Q12H.RT [facility] Last Admin: 06/09/18 07:08 Dose: 0.5 mg Calamine/Phenol (Calmoseptine Ointment) 1 applic TOPICAL TID [facility] PRN Reason: Protocol Last Admin: 06/09/18 06:08 Dose: 1 applicatio Cholecalciferol (Vitamin D) 1,000 unit PO DAILYCM [facility] Last Admin: 06/09/18 08:17 Dose: 1,000 unit Dextrose (D50w Syringe) 0 gm IV X1 PRN; Protocol PRN Reason: Hypoglycemia Dicyclomine HCl (Bentyl) 10 mg PO 4X/DAY PRN PRN Reason: CRAMPING Docusate Sodium (Colace) 100 mg PO BID [facility] Last Admin: 06/09/18 10:27 Dose: 100 mg Escitalopram Oxalate (Lexapro) 20 mg PO DAILY [facility] Last Admin: 06/09/18 10:26 Dose: 20 mg Glucagon () 1 mg IM .X1 PRN PRN Reason: Hypoglycemia Hydroxychloroquine Sulfate (Plaquenil) 200 mg PO DAILY [facility] Last Admin: 06/09/18 10:26 Dose: 200 mg Sodium Chloride () 1,000 mls @ 120 mls/hr IV .Q8H20M [facility] Insulin Human Lispro (Humalog Kwikpen (Bkc)) 0 unit SQ ACHS [facility] PRN Reason: Protocol Last Admin: 06/09/18 11:49 Dose: 2 u Levothyroxine Sodium (Synthroid) 100 mcg PO DAILY@0600 [facility] Last Admin: 06/09/18 06:08 Dose: 100 mcg Loratadine (Claritin) 10 mg PO QHS [facility] Last Admin: 06/08/18 22:30 Dose: 10 mg Magnesium Hydroxide (Milk Of Magnesia) 30 ml PO DAILY PRN PRN Reason: Constipation Nutritional Formula (Lactose Free) (Glucerna Shake) 120 ml PO 4X/DAY [facility] Last Admin: 06/09/18 10:25 Dose: 120 ml Nystatin (Mycostatin Powder) 1 applic TOPICAL BID [facility] PRN Reason: Protocol Last Admin: 06/09/18 10:36 Dose: 1 applic Pantoprazole Sodium (Protonix) 40 mg PO DAILY [facility] Last Admin: 06/09/18 10:26 Dose: 40 mg Polyethylene Glycol (Miralax) 34 gm PO X1 PRN PRN Reason: Bowel Movement Quetiapine Fumarate (Seroquel) 200 mg PO QHS [facility] Last Admin: 06/08/18 22:29 Dose: 200 mg Quetiapine Fumarate (Seroquel) 25 mg PO BID@0600,1200 [facility] Last Admin: 06/09/18 11:49 Dose: 25 mg Senna (Senokot) 1 tablet PO BID [facility] Last Admin: 06/09/18 10:28 Dose: 1 tablet Sodium Chloride () 5 - 30 ml IV UD PRN PRN Reason: SALINE FLUSH Last Admin: 06/08/18 07:57 Dose: 10 ml Topiramate (Topamax) 50 mg PO BID [facility] Last Admin: 06/09/18 10:26 Dose: 50 mg Verapamil HCl (Calan) 40 mg PO TID [facility] Last Admin: 06/09/18 06:08 Dose: 40 mg Vitamin E (Vitamin E) 400 units PO DAILYCM [facility] Last Admin: 06/09/18 08:17 Dose: 400 units Medical Necessity - Tobacco Use Smoking Status: Never smoker Assessment/Plan All Active Problems BRENNEN (acute kidney injury) (Acute) Hyperkalemia (Acute) Altered mental status (Acute) Generalized weakness (Acute) Multiple falls (Acute) Supratherapeutic INR (Resolved) Transaminitis (Resolved) 53-year-old female admitted from home with complaint of altered mental status per her . History was limited as patient was confused. 1. BRENNEN on CKD likely due to decreased intake Resolving. Creatinine on admission was 5.9, now down to 2.2 today. FeUrea was 42.5, indicating renal disease kidney ultarsound- showed normal kidneys and bladder will cut down IVF to 120cc/hr and monitor nephrology on board 2. Hyperkalemia likely due to BRENNEN on CKD. K was 5.9 on admission, now down to 4.7 Received 1 dose of Kayexalate. Stable. will give kayexalate and monitor 3. ALtered mental status likely medication induced Neurontin and opiates on hold. CT head showed only chronic involutional changes and no acute process. Has resolved. Patient now more alert and oriented and able to hold a conversation. will monitor 4. Hypercalcemia resolving. Ca down to 9.8 Lasix on hold. We will continue monitoring with IV fluid hydration. 5. ?SLE; patient on hydroxychloroquine, reason is unclear. Will continue 6. history of thrombotic disorder: on coumadin, reason not clear. INR was 3.5 on admission. Coumadin held. INR today is 2.3. Will resume Coumadin. Will monitor INR. 7. Diabetes: on insulin 40IU bid and lispro 30IU tidwm. Accuchecks ACHS. ISS 8. DVT prophylaxis: SCDs. Resume Coumadin today. This note was generated with [employer] dictation software. It may contain incorrect words, spelling, and punctuation that were not noted in checking the note before signing. Code Visit Inpatient E&M: 09032 Subs Hosp L2
--- NOTE | 2018-06-09 13:59 | PN_ITS ---
Patient Problems: Active and Suspected Problems BRENNEN (acute kidney injury) (Acute) Hyperkalemia (Acute) Altered mental status (Acute) Subjective: The patient is a 53 year old female w/ h/o COPD, STACY, CKD III, and DMII admitted for altered mental status. He was unable to provide much history and history was taken from and from the chart. She was admitted for altered mental status and not run out of her pain meds 3 days prior to admission. She was found to be unarousable by her and was also said not to be drinking much water. He was found to have AK on admission is being managed for AK I likely prerenal due to reduced intake. Patient seen and examined this morning she says she feels better and was much more alert and oriented. She was able to answer questions and denied having any complaints from last night. She denied any fever or chills, any shortness of breath, any cough or chest pain, any abdominal pain, any diarrhea vomiting. Review of systems otherwise negative. Vitals/I&O's: Vital Signs Temp Pulse Resp BP Pulse Ox 98.1 F 92 23 H 138/60 H 94 06/09/18 09:38 06/09/18 13:00 06/09/18 13:00 06/09/18 09:38 06/09/18 09:38 Oxygen Flow Rate (L/min) 3 Oxygen Delivery Method Nasal Cannula Weight: 297 lb 2.93 oz Body Mass Index (BMI) 58.0 Intake and Output for Last 24 Hours 06/07/18 06/08/18 06/09/18 23:59 23:59 23:59 Intake Total 3285 / 3285 2164 / 2164 Output Total 1100 / 1100 3425 / 3425 1999 / 1999 Balance -1100 / -1100 -140 / -140 164 / 164 General: Alert, Oriented x3, Cooperative HEENT: Atraumatic, PERRLA, EOMI, Normocephalic Oral: Moist Mucosa Neck: Supple, No JVD, Negative Carotid Bruits Lungs: Clear to auscultation, Normal air movement, No rhonchi, No wheeze, No rales Cardiovascular: Regular rate, Regular Rhythm, Normal S1, Normal S2, No murmurs Abdomen: Bowel Sounds Present, Soft, Non Tender, Non-Distended, No Hepato- splenomegaly, Obese Extremities: No clubbing, No cyanosis, No edema, Capillary Refill Less than 3 Seconds Skin: No rashes, No breakdown Musculoskeletal: - - right hand swollen, mildly erythematous- thought to be due to extravasation of IVF into right hand. right radial pulse is strong and palpable. Lymphatic: No Cervical, Supraclavicular, or Inguinal Adenopathy Neurological: Cranial nerves II-XII grossly intact Psych/Mental Status: Normal Affect, Appropriate, Alert and oriented to time, place, person, mood and affect Laboratory Results 06/08/18 13:40: Urine Creatinine 60.70 06/08/18 13:40: Urine Urea Nitrogen 572 06/08/18 17:31: POC Glucose 195 H 06/08/18 18:40: WBC 8.3, RBC 3.90 L, Hgb 13.4, Hct 40.3, MCV 103.3 H, MCH 34.4 H , MCHC 33.3, RDW 14.5, RDW Differential 54.1 H, Plt Count 144 L, MPV 10.3, Immature Gran % (Auto) 0.400, Neut % (Auto) 69.1, Lymph % (Auto) 21.0, [place] % ( Auto) 8.1, Eos % (Auto) 1.2, Baso % (Auto) 0.2, Absolute Neuts (auto) 5.7, Absolute Lymphs (auto) 1.74, Total Counted Not Reportable 06/08/18 18:40: Sodium 140, Potassium 5.3 H, Chloride 103, Carbon Dioxide 26.0, BUN 73 H, Creatinine 3.29 H, Estim Creat Clear Calc 14.53, Est GFR (MDRD) Af Amer 19 L, Est GFR (MDRD) Non-Af 16 L, BUN/Creatinine Ratio 22.2 H, Glucose 217 H, Calcium 10.5 H, Phosphorus 5.6 H, Albumin 2.7 L 06/08/18 22:34: POC Glucose 206 H 06/09/18 05:35: PT 25.4 H, INR 2.3 06/09/18 07:06: POC Glucose 177 H 06/09/18 07:33: WBC 7.2, RBC 3.75 L, Hgb 12.9, Hct 39.3, MCV 104.8 H, MCH 34.4 H , MCHC 32.8, RDW 14.6, RDW Differential 54.6 H, Plt Count 130 L, MPV 10.1, Immature Gran % (Auto) 0.700, Neut % (Auto) 66.2, Lymph % (Auto) 22.8, [place] % ( Auto) 8.9, Eos % (Auto) 1.1, Baso % (Auto) 0.3, Absolute Neuts (auto) 4.8, Absolute Lymphs (auto) 1.65, Total Counted Not Reportable 06/09/18 07:33: Sodium 143, Potassium 4.7, Chloride 107, Carbon Dioxide 27.0, BUN 57 H, Creatinine 2.20 H, Estim Creat Clear Calc 21.73, Est GFR (MDRD) Af Amer 30 L, Est GFR (MDRD) Non-Af 25 L, BUN/Creatinine Ratio 25.9 H, Glucose 180 H, Calcium 9.8, Phosphorus 3.2, Albumin 2.6 L 06/09/18 11:48: POC Glucose 190 H Diagnostic Data Brain CT 06/07/18 18:46 IMPRESSION: Chronic involutional changes of the brain. There are no acute findings. Electronically Signed: Chapin Jett MD at 20:23 EDT , Service support , Chest X-Ray 06/07/18 19:00 Renal Ultrasound 06/08/18 12:56 IMPRESSION: Normal ultrasound of the kidneys and urinary bladder. Electronically Signed: Chapin Jett MD at 16:03 EDT , Service support , Hand X-Ray 06/09/18 09:08 IMPRESSION: 1. Soft tissue swelling in the dorsum of the hand without radiopaque foreign bodies. 2. No radiographic evidence of osteomyelitis or acute osseous abnormality. Electronically Signed: Alin Rosa MD at 9:39 EDT , Service support , Current Medications Acetaminophen (Tylenol) 650 mg PO Q4H PRN PRN PRN Reason: PAIN Last Admin: 06/09/18 10:49 Dose: 650 mg Albuterol Sulfate (Ventolin Aerosols) 2.5 mg INHALATION Q4H PRN PRN PRN Reason: SOB &/OR WHEEZING Albuterol Sulfate (Ventolin Aerosols) 2.5 mg INHALATION Q6HWA.RT [facility] Last Admin: 06/09/18 13:00 Dose: 2.5 mg Ascorbic Acid (Vitamin C) 500 mg PO DAILY@1200 [facility] Last Admin: 06/09/18 11:49 Dose: 500 mg Atorvastatin Calcium (Lipitor) 10 mg PO QHS [facility] Last Admin: 06/08/18 22:29 Dose: 10 mg Budesonide (Pulmicort Aerosol) 0.5 mg INHALATION Q12H.RT [facility] Last Admin: 06/09/18 07:08 Dose: 0.5 mg Calamine/Phenol (Calmoseptine Ointment) 1 applic TOPICAL TID [facility] PRN Reason: Protocol Last Admin: 06/09/18 06:08 Dose: 1 applicatio Cholecalciferol (Vitamin D) 1,000 unit PO DAILYCM [facility] Last Admin: 06/09/18 08:17 Dose: 1,000 unit Dextrose (D50w Syringe) 0 gm IV X1 PRN; Protocol PRN Reason: Hypoglycemia Dicyclomine HCl (Bentyl) 10 mg PO 4X/DAY PRN PRN Reason: CRAMPING Docusate Sodium (Colace) 100 mg PO BID [facility] Last Admin: 06/09/18 10:27 Dose: 100 mg Escitalopram Oxalate (Lexapro) 20 mg PO DAILY [facility] Last Admin: 06/09/18 10:26 Dose: 20 mg Glucagon () 1 mg IM .X1 PRN PRN Reason: Hypoglycemia Hydroxychloroquine Sulfate (Plaquenil) 200 mg PO DAILY [facility] Last Admin: 06/09/18 10:26 Dose: 200 mg Sodium Chloride () 1,000 mls @ 120 mls/hr IV .Q8H20M [facility] Insulin Human Lispro (Humalog Kwikpen (Bkc)) 0 unit SQ ACHS [facility] PRN Reason: Protocol Last Admin: 06/09/18 11:49 Dose: 2 u Levothyroxine Sodium (Synthroid) 100 mcg PO DAILY@0600 [facility] Last Admin: 06/09/18 06:08 Dose: 100 mcg Loratadine (Claritin) 10 mg PO QHS [facility] Last Admin: 06/08/18 22:30 Dose: 10 mg Magnesium Hydroxide (Milk Of Magnesia) 30 ml PO DAILY PRN PRN Reason: Constipation Nutritional Formula (Lactose Free) (Glucerna Shake) 120 ml PO 4X/DAY [facility] Last Admin: 06/09/18 10:25 Dose: 120 ml Nystatin (Mycostatin Powder) 1 applic TOPICAL BID [facility] PRN Reason: Protocol Last Admin: 06/09/18 10:36 Dose: 1 applic Pantoprazole Sodium (Protonix) 40 mg PO DAILY [facility] Last Admin: 06/09/18 10:26 Dose: 40 mg Polyethylene Glycol (Miralax) 34 gm PO X1 PRN PRN Reason: Bowel Movement Quetiapine Fumarate (Seroquel) 200 mg PO QHS [facility] Last Admin: 06/08/18 22:29 Dose: 200 mg Quetiapine Fumarate (Seroquel) 25 mg PO BID@0600,1200 [facility] Last Admin: 06/09/18 11:49 Dose: 25 mg Senna (Senokot) 1 tablet PO BID [facility] Last Admin: 06/09/18 10:28 Dose: 1 tablet Sodium Chloride () 5 - 30 ml IV UD PRN PRN Reason: SALINE FLUSH Last Admin: 06/08/18 07:57 Dose: 10 ml Topiramate (Topamax) 50 mg PO BID [facility] Last Admin: 06/09/18 10:26 Dose: 50 mg Verapamil HCl (Calan) 40 mg PO TID [facility] Last Admin: 06/09/18 06:08 Dose: 40 mg Vitamin E (Vitamin E) 400 units PO DAILYCM [facility] Last Admin: 06/09/18 08:17 Dose: 400 units Medical Necessity - Tobacco Use Smoking Status: Never smoker Assessment/Plan All Active Problems BRENNEN (acute kidney injury) (Acute) Hyperkalemia (Acute) Altered mental status (Acute) Generalized weakness (Acute) Multiple falls (Acute) Supratherapeutic INR (Resolved) Transaminitis (Resolved) 53-year-old female admitted from home with complaint of altered mental status per her . History was limited as patient was confused. 1. BRENNEN on CKD likely due to decreased intake * Resolving. Creatinine on admission was 5.9, now down to 2.2 today. * FeUrea was 42.5, indicating renal disease * kidney ultarsound- showed normal kidneys and bladder * will cut down IVF to 120cc/hr and monitor * nephrology on board * * 2. Hyperkalemia * likely due to BRENNEN on CKD. K was 5.9 on admission, now down to 4.7 * Received 1 dose of Kayexalate. Stable. * will give kayexalate and monitor * 3. ALtered mental status likely medication induced * Neurontin and opiates on hold. CT head showed only chronic involutional changes and no acute process. * Has resolved. Patient now more alert and oriented and able to hold a conversation. * will monitor 4. Hypercalcemia * resolving. Ca down to 9.8 Lasix on hold. We will continue monitoring with IV fluid hydration. * 5. ?SLE; patient on hydroxychloroquine, reason is unclear. Will continue 6. history of thrombotic disorder: on coumadin, reason not clear. INR was 3.5 on admission. Coumadin held. INR today is 2.3. Will resume Coumadin. Will monitor INR. 7. Diabetes: on insulin 40IU bid and lispro 30IU tidwm. Accuchecks ACHS. ISS 8. DVT prophylaxis: SCDs. Resume Coumadin today. This note was generated with [employer] dictation software. It may contain incorrect words, spelling, and punctuation that were not noted in checking the note before signing. Code Visit Inpatient E&M: 56165 Subs Hosp L2
[2018-06-09] MEDS: 0.9% Normal Saline 1,000 ML 120 ML IV ×2 (14:53→22:25)
[2018-06-09 17:46] LABS: Bedside Glucose 163 mg/dL (70-110)
[2018-06-09] MEDS: QUEtiapine 100 MG Tablet 200 MG PO (21:48)
[2018-06-09] MEDS: Loratadine 10 MG Tablet PO (21:48)
[2018-06-09] MEDS: Atorvastatin Calcium 10 MG Tablet PO (21:48)
[2018-06-09] MEDS: Dicyclomine 10 MG Capsule PO (22:24)
[2018-06-09 23:55] LABS: Bedside Glucose 185 mg/dL (70-110)
[2018-06-10] VITALS (13 sets, daily range): BP systolic 153–161; BP diastolic 72–75; PULSE 88–111; RESP 12–20; TEMP 36.6–37.4; O2SAT 96–100
[2018-06-10] MEDS: Pramipexole Di-HCl 0.5 MG Tablet PO ×2 (02:33→21:18)
[2018-06-10] MEDS: 0.9% Normal Saline 1,000 ML 120 ML IV (06:16)
[2018-06-10] MEDS: Levothyroxine 100 MCG Tablet PO (06:20)
[2018-06-10] MEDS: QUEtiapine 25 MG Tablet PO ×2 (06:20→11:15)
[2018-06-10] MEDS: Menthol/Lanolin/Calamine/Znox 113 GM Tube 1 APPLIC TOPICAL ×3 (06:20→21:15)
[2018-06-10 06:58] LABS: Absolute Lymphocyte Count 1.81 X10^3/ul (0.83-4.51); Absolute Neutrophil Count 3.9 X10^3/uL (2.0-7.7); Basophil# 0.01 X10^3/uL; Basophil% 0.2 % (0-1); Eosinophil# 0.15 X10^3/uL; Eosinophils% 2.3 % (0-5); Hematocrit 38.7 % (37-47); Hemoglobin 12.4 g/dl (12.0-15.0); Lymphocyte # 1.81 X10^3/ul (4.0); Lymphocyte % 28.1 % (19-41); Mean Corpuscular Hgb 33.8 pg (27.0-32.0); Mean Corpuscular Volume 105.4 fL (81-99); Monocyte# 0.56 X10^3/uL; Monocyte% 8.7 % (0-10); Neutrophil # 3.85 X10^3/uL (2.7-7.7); Neutrophil % 59.8 % (47-70); Platelet Count 121 K/mm3 (150-450); RBC Distribution Width CV 14.6 % (11.6-14.6); RBC Distribution Width SD 56.7 fl (35.1-43.9); Red Blood Count 3.67 M/mm3 (4.2-5.4); White Blood Count 6.4 K/mm3 (4.4-11.0)
[2018-06-10] MEDS: Albuterol 2.5 MG/3 ML VIAL.NEB. INHALATION ×3 (07:00→19:23)
[2018-06-10] MEDS: Budesonide Respules 0.5 MG/2 ML AMPUL.NEB. INHALATION ×2 (07:00→19:23)
[2018-06-10 07:01] LABS: International Normalized Ratio 1.9; Prothrombin Time (Protime)PT. 21.4 SECONDS (11.7-14.9)
[2018-06-10 07:09] LABS: POSITIVE COUNT NO; POSITIVE DIFFERENTIAL NO; POSITIVE MORPHOLOGY NO
[2018-06-10 07:11] LABS: Bedside Glucose 160 mg/dL (70-110)
[2018-06-10 07:15] LABS: Albumin, Serum 2.6 g/dL (3.2-5.0); BUN 41 mg/dL (7-18); BUN/Creat Ratio 25.5 RATIO (10-20); Calcium,Total 9.3 mg/dL (8.5-10.1); Chloride 111 mmol/L (98-107); Creatinine, Serum 1.61 mg/dL (0.55-1.02); EST Glomerular Filtration Rate 36 mL/min (>60); Est Glom Filt Rate - Afr Amer 43 mL/min (>60); Estimated Creatinine Clearance 29.69 ml/min; Glucose 163 mg/dL (74-106); Phosphorus 2.3 mg/dL (2.5-4.9); Potassium 4.4 mmol/L (3.5-5.1); Sodium Level 145 mmol/L (136-145)
[2018-06-10] MEDS: Insulin Lispro 100 UNIT/ML INSULN.PEN SQ ×4 (08:41→21:17)
[2018-06-10] MEDS: Vitamin E 400 UNITS Capsule PO (08:42)
[2018-06-10] MEDS: Nystatin Powder 15gm Bottle 1 APPLIC TOPICAL ×2 (10:30→21:18)
[2018-06-10] MEDS: Pramipexole Di-HCl 0.25 MG Tablet PO (10:30)
[2018-06-10] MEDS: Escitalopram Oxalate 20 MG Tablet PO (10:30)
[2018-06-10] MEDS: Hydroxychloroquine 200 MG Tablet PO (10:31)
[2018-06-10] MEDS: Pantoprazole Sodium 40 MG Tablet PO (10:32)
[2018-06-10] MEDS: Topiramate 50 MG Tablet PO ×2 (10:33→21:19)
[2018-06-10] MEDS: Glucerna Shake 120 ML LIQUID PO ×2 (10:35→16:00)
[2018-06-10] MEDS: Dicyclomine 10 MG Capsule PO ×2 (11:10→16:17)
[2018-06-10] MEDS: Ascorbic Acid 500 MG Tablet PO (11:15)
[2018-06-10 11:31] LABS: Bedside Glucose 200 mg/dL (70-110)
--- NOTE | 2018-06-10 15:36 | NURSING ---
wound photo: left hand
--- NOTE | 2018-06-10 15:36 | NURSING ---
wound photo: bilateral buttocks
[2018-06-10 16:26] LABS: Bedside Glucose 174 mg/dL (70-110)
--- NOTE | 2018-06-10 16:51 | NURSING ---
THIS RN TAKING OVER CARE AT THIS TIME.
--- NOTE | 2018-06-10 18:38 | PCM.PROGNOTE ---
Subjective: Patient seen and examined today, was in her room. She is alert and appropriate. She has no complaints of any discomfort at the present time - Physical Exam General: Alert, Oriented x3, Cooperative HEENT: Atraumatic, PERRLA, EOMI, Normocephalic Oral: Moist Mucosa Neck: Supple, No JVD, Negative Carotid Bruits Lungs: Clear to auscultation, Normal air movement, No rhonchi, No wheeze, No rales Cardiovascular: Regular rate, Regular Rhythm, Normal S1, Normal S2, No murmurs, No Ectopic Activity, PMI Normal, No rub noted, No Gallop Abdomen: Bowel Sounds Present, Soft, Non Tender, Non-Distended, Obese Extremities: No clubbing, No cyanosis, No edema, Capillary Refill Less than 3 Seconds Skin: No rashes, No breakdown Musculoskeletal: No Tenderness to Palpation of Joints or Extremities Neurological: Cranial nerves II-XII grossly intact, Neuro grossly intact, Sensory exam intact to light touch and pain, Coordination normal Psych/Mental Status: Normal Affect, Appropriate, Alert and oriented to time, place, person, mood and affect Vital Signs Temp Pulse Resp BP Pulse Ox 98.1 F 109 H 18 156/75 H 96 06/10/18 15:00 06/10/18 16:33 06/10/18 15:00 06/10/18 15:00 06/10/18 15:00 Oxygen Flow Rate (L/min) 3 Oxygen Delivery Method Room Air Weight: 134.8 kg Body Mass Index (BMI) 58.0 Intake and Output for Last 24 Hours 06/08/18 06/09/18 06/10/18 23:59 23:59 23:59 Intake Total 3285 / 3285 4643 / 4643 2295 / 2295 Output Total 3425 / 3425 2650 / 2650 Balance -140 / -140 1992 / 1992 2295 / 2295 Laboratory Tests Past 24 Hrs 06/10/18 06/10/18 06/10/18 06:30 06:30 06:30 WBC 6.4 RBC 3.67 L Hgb 12.4 Hct 38.7 MCV 105.4 H MCH 33.8 H MCHC 32.0 RDW 14.6 RDW Differential 56.7 H Plt Count 121 L MPV 10.0 Immature Gran % (Auto) 0.900 Neut % (Auto) 59.8 Lymph % (Auto) 28.1 [place] % (Auto) 8.7 Eos % (Auto) 2.3 Baso % (Auto) 0.2 Absolute Neuts (auto) 3.9 Absolute Lymphs (auto) 1.81 Total Counted Not Reportable PT 21.4 H INR 1.9 Sodium 145 Potassium 4.4 Chloride 111 H Carbon Dioxide 25.0 BUN 41 H Creatinine 1.61 H Estim Creat Clear Calc 29.69 Est GFR (MDRD) Af Amer 43 L Est GFR (MDRD) Non-Af 36 L BUN/Creatinine Ratio 25.5 H Glucose 163 H Calcium 9.3 Phosphorus 2.3 L Albumin 2.6 L POC Glucose 06/10/18 06/10/18 06/10/18 16:16 11:08 07:04 POC Glucose 174 H 200 H 160 H 06/09/18 22:23 POC Glucose 185 H Medical Necessity - Tobacco Use Smoking Status: Never smoker Assessment/Plan All Active Problems BRENNEN (acute kidney injury) (Acute) Hyperkalemia (Acute) Altered mental status (Acute) Generalized weakness (Acute) Multiple falls (Acute) Supratherapeutic INR (Resolved) Transaminitis (Resolved) #1 acute kidney injury on chronic kidney disease stage III-probably secondary to dehydration from altered mental status secondary to multiple sedating medications at home-I had a long talk with the patient today concerning her pain medications, she is only receiving Tylenol in the hospital here and she is not asking for any additional pain medications. I will contact her pain management physician to make him aware of my suspicion that she is taking too many medications for pain at home. #2 metabolic encephalopathy secondary to renal failure with concomitant use of sedating medications for pain-resolved at this time #3 hyperkalemia #4 type 2 diabetes #5 hypertension #6 depression #7 chronic pain syndrome-secondary to fibromyalgia, chronic back pain, arthritis Code Visit Inpatient E&M: 72294 Subs Hosp L2
--- NOTE | 2018-06-10 19:01 | PN.RENAL_ITS ---
Patient Problems: Active and Suspected Problems NIDA (acute kidney injury) (Acute) Hyperkalemia (Acute) Altered mental status (Acute) Subjective: more alert, oriented, less confused. Renal fxn improved. - Physical Exam General: Alert, Oriented x3, Cooperative, No apparent distress Neck: Supple Lungs: Clear to auscultation Cardiovascular: Regular rate Abdomen: Bowel Sounds Present, Soft, Non Tender, Non-Distended, Obese Extremities: No edema Musculoskeletal: No Muscle Wasting Neurological: - - tremors, clonic mvt improved Psych/Mental Status: Alert and oriented to time, place, person, mood and affect Vital Signs Temp Pulse Resp BP Pulse Ox 98.1 F 100 18 156/75 H 96 06/10/18 15:00 06/10/18 18:44 06/10/18 15:00 06/10/18 15:00 06/10/18 15:00 Oxygen Flow Rate (L/min) 3 Oxygen Delivery Method Room Air Weight: 134.8 kg Body Mass Index (BMI) 58.0 Intake and Output for Last 24 Hours 06/08/18 06/09/18 06/10/18 23:59 23:59 23:59 Intake Total 3285 / 3285 4643 / 4643 2295 / 2295 Output Total 3425 / 3425 2650 / 2650 Balance -140 / -140 1992 2295 / 2295 Laboratory Tests Past 24 Hrs 06/10/18 06/10/18 06/10/18 06:30 06:30 06:30 WBC 6.4 RBC 3.67 L Hgb 12.4 Hct 38.7 MCV 105.4 H MCH 33.8 H MCHC 32.0 RDW 14.6 RDW Differential 56.7 H Plt Count 121 L MPV 10.0 Immature Gran % (Auto) 0.900 Neut % (Auto) 59.8 Lymph % (Auto) 28.1 [place] % (Auto) 8.7 Eos % (Auto) 2.3 Baso % (Auto) 0.2 Absolute Neuts (auto) 3.9 Absolute Lymphs (auto) 1.81 Total Counted Not Reportable PT 21.4 H INR 1.9 Sodium 145 Potassium 4.4 Chloride 111 H Carbon Dioxide 25.0 BUN 41 H Creatinine 1.61 H Estim Creat Clear Calc 29.69 Est GFR (MDRD) Af Amer 43 L Est GFR (MDRD) Non-Af 36 L BUN/Creatinine Ratio 25.5 H Glucose 163 H Calcium 9.3 Phosphorus 2.3 L Albumin 2.6 L POC Glucose 06/10/18 06/10/18 06/10/18 16:16 11:08 07:04 POC Glucose 174 H 200 H 160 H 06/09/18 22:23 POC Glucose 185 H Medical Necessity - Tobacco Use Smoking Status: Never smoker Assessment/Plan All Active Problems NIDA (acute kidney injury) (Acute) Hyperkalemia (Acute) Altered mental status (Acute) Generalized weakness (Acute) Multiple falls (Acute) Supratherapeutic INR (Resolved) Transaminitis (Resolved) 1. Nida on CKD stage 3 likely from prerenal event from medications, altered mental status with poor oral intake. Renal fxn improved to 1.6. Baseline creatinine 1.4 2. Altered mental status, metabolic encephalopathy, tremors multifactoral from dehydration, renal failure, with concomitant use of narcotics/antidepressants/ antipsycotics/muscle relaxers/gabapentin. CT head no acute change. 3. Hyerkalemia resolved. 4. Chronic Depression 5. Dm2 stable 6. HTN stable 7. Hx PE/DVT on anticoaguiation 8. Hyponatremia due to volume depletion resolved with iv fluids.
--- NOTE | 2018-06-10 21:00 | NURSING ---
Pt's Louis called PCU at this time. Louis is concerned about caring for his at home. Louis said he will likely be in to visit the Pt between 0900 and 1000 06/11/18. Louis said he would appreciate sharing his concerns with Social Work or Case Management at that time.
[2018-06-10] MEDS: Loratadine 10 MG Tablet PO (21:16)
[2018-06-10] MEDS: Atorvastatin Calcium 10 MG Tablet PO (21:17)
[2018-06-10] MEDS: QUEtiapine 100 MG Tablet 200 MG PO (21:19)
[2018-06-10 22:55] LABS: Bedside Glucose 166 mg/dL (70-110)
[2018-06-11 02:50] VITALS: PULSE 98
[2018-06-11 03:00] VITALS: BP 131/58; PULSE 91; RESP 20; TEMP 37.5; O2SAT 96
[2018-06-11 05:35] VITALS: BP 136/77; PULSE 94; RESP 20; TEMP 37; O2SAT 100
[2018-06-11] MEDS: Levothyroxine 100 MCG Tablet PO (05:40)
[2018-06-11] MEDS: QUEtiapine 25 MG Tablet PO ×2 (05:40→11:21)
[2018-06-11] MEDS: Menthol/Lanolin/Calamine/Znox 113 GM Tube 1 APPLIC TOPICAL (05:40)
[2018-06-11 07:05] LABS: Bedside Glucose 159 mg/dL (70-110)
[2018-06-11 07:12] VITALS: PULSE 55; PULSE 96; RESP 16; O2SAT 92
[2018-06-11] MEDS: Albuterol 2.5 MG/3 ML VIAL.NEB. INHALATION (07:12)
[2018-06-11] MEDS: Budesonide Respules 0.5 MG/2 ML AMPUL.NEB. INHALATION (07:12)
--- NOTE | 2018-06-11 08:12 | DCINST_ITS ---
- Discharge Diagnoses Current Active Problems: Current Active and Chronic Problems BRENNEN (acute kidney injury) (Acute) Hyperkalemia (Acute) Altered mental status (Acute) You will use the following diet at home:: Calorie/Carbohydrate Controlled ( specify 1200, 1400, etc) - 1800 myah Your food should be the consistency of: Regular Your liquids should be the consistency of: Regular/Thin Discharge Activity: Return to Normal Activity Weight Bearing Status: Full weight bearing Additional Instructions: apply Calmoseptine and stoma powder daily as instructed until buttocks wounds heal Allergies/Adverse Reactions: Allergies hydrogen peroxide Allergy (Verified 02/04/18 15:07) Rash Sulfa (Sulfonamide Antibiotics) Allergy (Verified 02/04/18 15:07) Hives iodine Adverse Reaction (Verified 02/04/18 15:07) burning (topical) vitamin k Allergy (Uncoded 04/08/17 09:57) Swelling/burning around injection site Medications to take at Discharge Dicyclomine HCl [Bentyl] 10 mg PO 4X/DAY PRN 06/30/14 Levothyroxine [Synthroid] 100 mcg PO DAILY 06/30/14 Omeprazole [Prilosec] 40 mg PO DAILY 06/30/14 Quetiapine Fumarate [Seroquel] 25 mg PO BID 08/24/14 Lactobacillus Combination No.4 [Probiotic] 2 each PO QHS 10/29/14 Vitamin B Complex 1 each PO DAILY 05/23/16 Warfarin [Coumadin] 7.5 mg PO TUTH 04/08/17 Fluticasone/Vilanterol [Breo Ellipta 200-25 Mcg INH] 1 each IH DAILY 02/04/18 Albuterol Inhaler [Ventolin Hfa] 2 puff INHALATION Q4H PRN PRN 06/07/18 Ascorbic Acid [Vitamin C] 500 mg PO DAILY@1200 06/07/18 Atorvastatin Calcium [Lipitor] 10 mg PO QHS 06/07/18 Biotin 5 mg PO TID 06/07/18 Calcium Magnesium Zinc Vit D3 3 tab PO BID 06/07/18 Cholecalciferol (VIT D3) [Vitamin D3] 1,000 unit PO DAILY 06/07/18 Escitalopram Oxalate [Lexapro] 20 mg PO DAILY 06/07/18 Hydroxychloroquine Sulfate [Plaquenil] 200 mg PO DAILY 06/07/18 Loratadine 10 mg PO DAILY 06/07/18 Quetiapine Fumarate [Seroquel] 200 mg PO QHS 06/07/18 Ropinirole HCl [Requip] 0.5 - 1 mg PO TID 06/07/18 Simvastatin [Zocor] 10 mg PO QHS 06/07/18 Topiramate [Topamax] 50 mg PO BID 06/07/18 Verapamil 40 mg PO TID 06/07/18 Warfarin [Coumadin] 5 mg PO [id number] 06/07/18 Acetaminophen [Tylenol Tablet] 650 mg PO Q4H PRN PRN tablet 06/11/18 Insulin Glargine [Lantus SoloStar Pen] 10 units SC BID #1 pen 06/11/18 Insulin Lispro [Humalog KwikPen] 10 units SQ TIDCM #1 insuln.pen 06/11/18 Loratadine [Claritin] 10 mg PO QHS tablet 06/11/18 Menthol/Lanolin/Calamine/Znox [Calmoseptine Ointment] 1 applic TOPICAL TID tube 06/11/18 Nystatin Powder [Mycostatin Powder] 1 applic TOPICAL BID #1 bottle 06/11/18 Warfarin [Coumadin] 5 mg PO SuMoWeFrSa@1700 tablet 06/11/18 Warfarin [Coumadin] 7.5 mg PO TuTh@1700 tablet 06/11/18 The following prescriptions were given: Insulin Glargine [Lantus SoloStar Pen] 10 units SC BID #1 pen Nystatin Powder [Mycostatin Powder] 1 applic TOPICAL BID #1 bottle Insulin Lispro [Humalog KwikPen] 10 units SQ TIDCM #1 insuln.pen Primary Care Physician: Erna Grier MD [Primary Care Provider] - Please follow up with your Primary Care Physician in: within 7 days Test Results: Test results from this visit will be discussed in further detail at your follow- up appointment, if applicable. Please Follow Up With: John Wetzel MD When: tomorrow or Thurs this week
[2018-06-11 09:35] VITALS: BP 156/72; PULSE 106; RESP 16; TEMP 36.6; O2SAT 96
[2018-06-11] MEDS: Pramipexole Di-HCl 0.25 MG Tablet PO (09:35)
[2018-06-11] MEDS: Vitamin E 400 UNITS Capsule PO (09:35)
[2018-06-11] MEDS: Insulin Lispro 100 UNIT/ML INSULN.PEN SQ ×2 (09:35→11:21)
[2018-06-11] MEDS: Escitalopram Oxalate 20 MG Tablet PO (09:35)
[2018-06-11] MEDS: Topiramate 50 MG Tablet PO (09:36)
[2018-06-11] MEDS: Hydroxychloroquine 200 MG Tablet PO (09:36)
[2018-06-11] MEDS: Acetaminophen 325 MG Tablet 650 MG PO (09:36)
[2018-06-11] MEDS: Pantoprazole Sodium 40 MG Tablet PO (09:36)
[2018-06-11] MEDS: Nystatin Powder 15gm Bottle 1 APPLIC TOPICAL (09:37)
[2018-06-11 11:02] VITALS: PULSE 95
[2018-06-11 11:10] LABS: Albumin, Serum 2.5 g/dL (3.2-5.0); BUN 35 mg/dL (7-18); BUN/Creat Ratio 24.1 RATIO (10-20); Calcium,Total 9.3 mg/dL (8.5-10.1); Chloride 112 mmol/L (98-107); Creatinine, Serum 1.45 mg/dL (0.55-1.02); EST Glomerular Filtration Rate 41 mL/min (>60); Est Glom Filt Rate - Afr Amer 49 mL/min (>60); Estimated Creatinine Clearance 32.97 ml/min; Glucose 176 mg/dL (74-106); Phosphorus 1.7 mg/dL (2.5-4.9); Potassium 3.9 mmol/L (3.5-5.1); Sodium Level 146 mmol/L (136-145)
[2018-06-11] MEDS: Ascorbic Acid 500 MG Tablet PO (11:21)
[2018-06-11 11:30] LABS: Bedside Glucose 166 mg/dL (70-110)
--- NOTE | 2018-06-11 15:36 | PN.RENAL_ITS ---
Subjective: seen earlier today, unsteady on feet. Renal fxn stable. Mental status back to baseline. - Physical Exam General: Alert, Oriented x3, Cooperative, No apparent distress Lungs: Clear to auscultation Cardiovascular: Regular rate Abdomen: Bowel Sounds Present, Soft, Obese Extremities: No edema Vital Signs Temp Pulse Resp BP Pulse Ox 97.8 F 95 16 156/72 H 96 06/11/18 09:35 06/11/18 11:02 06/11/18 09:35 06/11/18 09:35 06/11/18 09:35 Oxygen Flow Rate (L/min) 3 Oxygen Delivery Method Room Air Weight: 134.8 kg Body Mass Index (BMI) 58.0 Intake and Output for Last 24 Hours 06/09/18 06/10/18 06/11/18 23:59 23:59 23:59 Intake Total 4643 / 4643 2675 / 2675 30 / 30 Output Total 2650 / 2650 Balance 1992 2675 / 2675 30 / Laboratory Tests Past 24 Hrs 06/11/18 10:30 Sodium 146 H Potassium 3.9 Chloride 112 H Carbon Dioxide 24.0 BUN 35 H Creatinine 1.45 H Estim Creat Clear Calc 32.97 Est GFR (MDRD) Af Amer 49 L Est GFR (MDRD) Non-Af 41 L BUN/Creatinine Ratio 24.1 H Glucose 176 H Calcium 9.3 Phosphorus 1.7 L Albumin 2.5 L POC Glucose 06/11/18 06/11/18 06/10/18 11:16 06:54 21:13 POC Glucose 166 H 159 H 166 H 06/10/18 16:16 POC Glucose 174 H Medical Necessity - Tobacco Use Smoking Status: Never smoker Assessment/Plan All Active Problems NIDA (acute kidney injury) (Acute) Hyperkalemia (Acute) Altered mental status (Acute) Generalized weakness (Acute) Multiple falls (Acute) Supratherapeutic INR (Resolved) Transaminitis (Resolved) 1. Nida on CKD stage 3 likely from prerenal event from medications, altered mental status with poor oral intake, dehydration. Renal fxn improved to 1.56. Baseline creatinine 1.4. Continue to hold diuretics, ACEI. 2. Altered mental status, metabolic encephalopathy, tremors multifactoral from dehydration, renal failure, with concomitant use of narcotics/antidepressants/ antipsycotics/muscle relaxers/gabapentin. CT head no acute change. 3. Hyerkalemia resolved. 4. Chronic Depression 5. Dm2 stable 6. HTN stable 7. Hx PE/DVT on anticoaguiation 8. Hyponatremia due to volume depletion resolved with iv fluids.
--- NOTE | 2018-06-12 15:40 | CASEMGMT ---
RN CM Discharge Follow-up Phone Call: MATTHIAS: 12 Strata: 4 Call Date: 06/12/18 Discharge Date: 06/11/18 Time of Call: 1540 Duration: 1 min Admitting Diagnosis: Acute Kidney Failure RN CM attempted follow-up phone call after recent hospitalization. No answer, voice message left with return contact information. No follow-up appts scheduled prior to discharge.
--- NOTE | 2018-06-13 09:56 | PCM.DC.SUM ---
Discharge Date and Diagnosis Date of Admission: 06/07/18 Date of Discharge: 06/11/18 - Primary Discharge Diagnosis #1 acute kidney injury on chronic kidney disease stage III-probably secondary to dehydration from altered mental status secondary to multiple sedating medications at home. #2 metabolic encephalopathy secondary to renal failure with concomitant use of sedating medications for pain- #3 hyperkalemia #4 type 2 diabetes #5 hypertension #6 depression #7 chronic pain syndrome-secondary to fibromyalgia, chronic back pain, arthritis - Secondary Discharge Diagnosis Chronic Problems Obesity, morbid, BMI 40.0-49.9 (Chronic) Peripheral neuropathy (Chronic) CKD (chronic kidney disease) stage 3, GFR 30-59 ml/min (Chronic) IBS (irritable bowel syndrome) (Chronic) Fibromyalgia syndrome (Chronic) GERD (gastroesophageal reflux disease) (Chronic) Sleep apnea (Chronic) O2 at night claustrophobic Depression (Chronic) Diverticulosis (Chronic) Chronic back pain (Chronic) Asthma (Chronic) Diabetes (Chronic) Hospital Course and Treatment Consultations 06/09/18 18:47 Consult: Onc/Wound/drag sawyer Routine Comment: Reason for Consult:: Blisters to coccyx, assess left hand infiltrate/hematoma/blisters Comments:: L hand NS infiltrate Operations: None Procedures: None Summary of Care Provided: The patient is a 53 year old F urgency room at [facility] after being brought in due to a change in mental status with increased somnolence. Initially patient's blood pressure was low but she responded to fluid administration, pulse ox was 90% on 3 L, workup included a chest x-ray which showed no acute process, CT of the brain showed no acute process, white count was normal, potassium was high at 5.9, anion gap was 14, BUN was elevated at 80 and creatinine was elevated at 5.9. Patient was admitted for acute mental status change and acute kidney injury on chronic kidney disease believed to be secondary to dehydration, patient had been taking multiple sedating medications at home for pain and was felt to be overmedicated and have a metabolic encephalopathy. Patient was given IV fluids, seen by nephrology, and her labs and blood sugars were monitored. Patient's mental status improved, it was noted during her hospitalization that she was only taking Tylenol for pain and did not ask for anything stronger than Tylenol. Patient was seen by PT and OT, she was felt to be stable for discharge home, had some doubts that she was stable for discharge home and was inclined to have the patient go to a long-term-patient refused this and I did not feel that the patient actually needed to go to a long-term for rehab or further care. I contacted the patient's pain management doctor made him aware of the patient's issues, IV fluids were stopped by nephrology as the patient's creatinine had corrected to her normal value. On 06/11/18, patient was seen and examined felt to be in stable condition for discharge home Discharge Activity: Return to Normal Activity Weight Bearing Status: Full weight bearing Home Medications: Medications to take at Discharge Dicyclomine HCl [Bentyl] 10 mg PO 4X/DAY PRN 06/30/14 Levothyroxine [Synthroid] 100 mcg PO DAILY 06/30/14 Omeprazole [Prilosec] 40 mg PO DAILY 06/30/14 Quetiapine Fumarate [Seroquel] 25 mg PO BID 08/24/14 Lactobacillus Combination No.4 [Probiotic] 2 each PO QHS 10/29/14 Vitamin B Complex 1 each PO DAILY 05/23/16 Warfarin [Coumadin] 7.5 mg PO TUTH 04/08/17 Fluticasone/Vilanterol [Breo Ellipta 200-25 Mcg INH] 1 each IH DAILY 02/04/18 Albuterol Inhaler [Ventolin Hfa] 2 puff INHALATION Q4H PRN PRN 06/07/18 Ascorbic Acid [Vitamin C] 500 mg PO DAILY@1200 06/07/18 Atorvastatin Calcium [Lipitor] 10 mg PO QHS 06/07/18 Biotin 5 mg PO TID 06/07/18 Calcium Magnesium Zinc Vit D3 3 tab PO BID 06/07/18 Cholecalciferol (VIT D3) [Vitamin D3] 1,000 unit PO DAILY 06/07/18 Escitalopram Oxalate [Lexapro] 20 mg PO DAILY 06/07/18 Hydroxychloroquine Sulfate [Plaquenil] 200 mg PO DAILY 06/07/18 Loratadine 10 mg PO DAILY 06/07/18 Quetiapine Fumarate [Seroquel] 200 mg PO QHS 06/07/18 Ropinirole HCl [Requip] 0.5 - 1 mg PO TID 06/07/18 Simvastatin [Zocor] 10 mg PO QHS 06/07/18 Topiramate [Topamax] 50 mg PO BID 06/07/18 Verapamil 40 mg PO TID 06/07/18 Warfarin [Coumadin] 5 mg PO SUMOWEFRSA 06/07/18 Acetaminophen [Tylenol Tablet] 650 mg PO Q4H PRN PRN tablet 06/11/18 Insulin Glargine [Lantus SoloStar Pen] 10 units SC BID #1 pen 06/11/18 Insulin Lispro [Humalog KwikPen] 10 units SQ TIDCM #1 insuln.pen 06/11/18 Loratadine [Claritin] 10 mg PO QHS tablet 06/11/18 Menthol/Lanolin/Calamine/Znox [Calmoseptine Ointment] 1 applic TOPICAL TID tube 06/11/18 Nystatin Powder [Mycostatin Powder] 1 applic TOPICAL BID #1 bottle 06/11/18 Warfarin [Coumadin] 5 mg PO SuMoWeFrSa@1700 tablet 06/11/18 Warfarin [Coumadin] 7.5 mg PO TuTh@1700 tablet 06/11/18 Following Prescrptions Were Given to Patient: Insulin Glargine [Lantus SoloStar Pen] 10 units SC BID #1 pen Nystatin Powder [Mycostatin Powder] 1 applic TOPICAL BID #1 bottle Insulin Lispro [Humalog KwikPen] 10 units SQ TIDCM #1 insuln.pen Primary Care Physician: Erna Grier MD [Primary Care Provider] - Please follow up with your Primary Care Physician in: within 7 days Please Follow Up With: John Wetzel MD When: tomorrow or Thurs this week Disposition: Home Minutes spent on discharge:: 36 Patient Condition:: Stable Medical Necessity - Tobacco Use Smoking Status: Never smoker Meaningful Use Info Meaningful Use Diagnoses (Choose all that apply): None applicable Code Visit Inpatient E&M: 28662 Disch Hosp
--- NOTE | 2018-06-13 10:01 | DS.PCM_ITS ---
Discharge Date and Diagnosis Date of Admission: 06/07/18 Date of Discharge: 06/11/18 - Primary Discharge Diagnosis #1 acute kidney injury on chronic kidney disease stage III-probably secondary to dehydration from altered mental status secondary to multiple sedating medications at home. #2 metabolic encephalopathy secondary to renal failure with concomitant use of sedating medications for pain- #3 hyperkalemia #4 type 2 diabetes #5 hypertension #6 depression #7 chronic pain syndrome-secondary to fibromyalgia, chronic back pain, arthritis - Secondary Discharge Diagnosis Chronic Problems Obesity, morbid, BMI 40.0-49.9 (Chronic) Peripheral neuropathy (Chronic) CKD (chronic kidney disease) stage 3, GFR 30-59 ml/min (Chronic) IBS (irritable bowel syndrome) (Chronic) Fibromyalgia syndrome (Chronic) GERD (gastroesophageal reflux disease) (Chronic) Sleep apnea (Chronic) O2 at night claustrophobic Depression (Chronic) Diverticulosis (Chronic) Chronic back pain (Chronic) Asthma (Chronic) Diabetes (Chronic) Hospital Course and Treatment Consultations 06/09/18 18:47 Consult: Onc/Wound/data report analyst Routine Comment: Reason for Consult:: Blisters to coccyx, assess left hand infiltrate/hematoma /blisters Comments:: L hand NS infiltrate Operations: None Procedures: None Summary of Care Provided: The patient is a 53 year old F urgency room at [facility] after being brought in due to a change in mental status with increased somnolence. Initially patient's blood pressure was low but she responded to fluid administration, pulse ox was 90% on 3 L, workup included a chest x-ray which showed no acute process, CT of the brain showed no acute process, white count was normal, potassium was high at 5.9, anion gap was 14, BUN was elevated at 80 and creatinine was elevated at 5.9. Patient was admitted for acute mental status change and acute kidney injury on chronic kidney disease believed to be secondary to dehydration, patient had been taking multiple sedating medications at home for pain and was felt to be overmedicated and have a metabolic encephalopathy. Patient was given IV fluids, seen by nephrology, and her labs and blood sugars were monitored. Patient's mental status improved, it was noted during her hospitalization that she was only taking Tylenol for pain and did not ask for anything stronger than Tylenol. Patient was seen by PT and OT, she was felt to be stable for discharge home, had some doubts that she was stable for discharge home and was inclined to have the patient go to a correction-patient refused this and I did not feel that the patient actually needed to go to a correction for rehab or further care. I contacted the patient's pain management doctor made him aware of the patient's issues, IV fluids were stopped by nephrology as the patient's creatinine had corrected to her normal value. On 06/11/18, patient was seen and examined felt to be in stable condition for discharge home Discharge Activity: Return to Normal Activity Weight Bearing Status: Full weight bearing Home Medications: Medications to take at Discharge Dicyclomine HCl [Bentyl] 10 mg PO 4X/DAY PRN 06/30/14 Levothyroxine [Synthroid] 100 mcg PO DAILY 06/30/14 Omeprazole [Prilosec] 40 mg PO DAILY 06/30/14 Quetiapine Fumarate [Seroquel] 25 mg PO BID 08/24/14 Lactobacillus Combination No.4 [Probiotic] 2 each PO QHS 10/29/14 Vitamin B Complex 1 each PO DAILY 05/23/16 Warfarin [Coumadin] 7.5 mg PO TUTH 04/08/17 Fluticasone/Vilanterol [Breo Ellipta 200-25 Mcg INH] 1 each IH DAILY 02/04/18 Albuterol Inhaler [Ventolin Hfa] 2 puff INHALATION Q4H PRN PRN 06/07/18 Ascorbic Acid [Vitamin C] 500 mg PO DAILY@1200 06/07/18 Atorvastatin Calcium [Lipitor] 10 mg PO QHS 06/07/18 Biotin 5 mg PO TID 06/07/18 Calcium Magnesium Zinc Vit D3 3 tab PO BID 06/07/18 Cholecalciferol (VIT D3) [Vitamin D3] 1,000 unit PO DAILY 06/07/18 Escitalopram Oxalate [Lexapro] 20 mg PO DAILY 06/07/18 Hydroxychloroquine Sulfate [Plaquenil] 200 mg PO DAILY 06/07/18 Loratadine 10 mg PO DAILY 06/07/18 Quetiapine Fumarate [Seroquel] 200 mg PO QHS 06/07/18 Ropinirole HCl [Requip] 0.5 - 1 mg PO TID 06/07/18 Simvastatin [Zocor] 10 mg PO QHS 06/07/18 Topiramate [Topamax] 50 mg PO BID 06/07/18 Verapamil 40 mg PO TID 06/07/18 Warfarin [Coumadin] 5 mg PO SUMOWEFRSA 06/07/18 Acetaminophen [Tylenol Tablet] 650 mg PO Q4H PRN PRN tablet 06/11/18 Insulin Glargine [Lantus SoloStar Pen] 10 units SC BID #1 pen 06/11/18 Insulin Lispro [Humalog KwikPen] 10 units SQ TIDCM #1 insuln.pen 06/11/18 Loratadine [Claritin] 10 mg PO QHS tablet 06/11/18 Menthol/Lanolin/Calamine/Znox [Calmoseptine Ointment] 1 applic TOPICAL TID tube 06/11/18 Nystatin Powder [Mycostatin Powder] 1 applic TOPICAL BID #1 bottle 06/11/18 Warfarin [Coumadin] 5 mg PO SuMoWeFrSa@1700 tablet 06/11/18 Warfarin [Coumadin] 7.5 mg PO TuTh@1700 tablet 06/11/18 Following Prescrptions Were Given to Patient: Insulin Glargine [Lantus SoloStar Pen] 10 units SC BID #1 pen Nystatin Powder [Mycostatin Powder] 1 applic TOPICAL BID #1 bottle Insulin Lispro [Humalog KwikPen] 10 units SQ TIDCM #1 insuln.pen Primary Care Physician: Erna Grier MD [Primary Care Provider] - Please follow up with your Primary Care Physician in: within 7 days Please Follow Up With: John Wetzel MD When: tomorrow or Thurs this week Disposition: Home Minutes spent on discharge:: 36 Patient Condition:: Stable Medical Necessity - Tobacco Use Smoking Status: Never smoker Meaningful Use Info Meaningful Use Diagnoses (Choose all that apply): None applicable Code Visit Inpatient E&M: 05398 Disch Hosp
== END 2018-06-11 12:15 | disposition home or self-care (01) | DRG 682 ==
LOC: ED 22:44 → PCU 23:31
PROVIDERS: Internal Medicine Nephrology; Student in an Organized Health Care Education/Training Program; Admitting Provider Internal Medicine; Emergency Provider Emergency Medicine; Family Provider Internal Medicine; PCP Internal Medicine; Visit Provider Internal Medicine
DX: N17.9 Acute kidney failure, unspecified (principal); G92 Toxic encephalopathy; Z68.43 Body mass index [BMI] 50.0-59.9, adult; E87.1 Hypo-osmolality and hyponatremia; E87.5 Hyperkalemia; E83.52 Hypercalcemia; E86.0 Dehydration; T42.75XA Adverse effect of unspecified antiepileptic and sedative-hypnotic drugs, initial encounter; I12.9 Hypertensive chronic kidney disease with stage 1 through stage 4 chronic kidney disease, or unspecified chronic kidney disease; E11.22 Type 2 diabetes mellitus with diabetic chronic kidney disease; N18.3 Chronic kidney disease, stage 3 (moderate); J44.9 Chronic obstructive pulmonary disease, unspecified; R09.02 Hypoxemia; E66.01 Morbid (severe) obesity due to excess calories; E11.42 Type 2 diabetes mellitus with diabetic polyneuropathy; K58.9 Irritable bowel syndrome, unspecified; M79.7 Fibromyalgia; G89.4 Chronic pain syndrome; G47.33 Obstructive sleep apnea (adult) (pediatric); K21.9 Gastro-esophageal reflux disease without esophagitis; F32.9 Major depressive disorder, single episode, unspecified; R29.6 Repeated falls; Y92.009 Unspecified place in unspecified non-institutional (private) residence as the place of occurrence of the external cause; Z79.01 Long term (current) use of anticoagulants; Z79.4 Long term (current) use of insulin; Z79.899 Other long term (current) drug therapy; Z86.711 Personal history of pulmonary embolism; Z86.718 Personal history of other venous thrombosis and embolism; Z86.73 Personal history of transient ischemic attack (TIA), and cerebral infarction without residual deficits
CPT/HCPCS: 36415; 36600; 51702; 70450; 71045; 73130; 76770; 80048; 80069; 80307; 81001; 82009; 82570; 82803; 82962; 84484; 84540; 85025; 85610; 93005; 94640; 97110; 97162; 97166; 97530; 97802; 99285; J7030; A4216

== ENCOUNTER → 2018-06-28 10:27 | Outpatient (CLI) | payer MEDICARE, SELFPAY ==
[2018-06-28 10:50] LABS: Hematocrit 40.2 % (37-47); Mean Corp Hgb Conc 32.3 g/gl (32-36); Mean Corpuscular Hgb 33.2 pg (27.0-32.0); Mean Corpuscular Volume 102.6 fL (81-99); Mean Platelet Vol. 9.7 fl (6.2-12.0); Platelet Count 174 K/mm3 (150-450); RBC Distribution Width CV 15.5 % (11.6-14.6); RBC Distribution Width SD 57.3 fl (35.1-43.9); Red Blood Count 3.92 M/mm3 (4.2-5.4); Scan Indicated on CBC? Y/N NO; White Blood Count 3.8 K/mm3 (4.4-11.0)
[2018-06-28 11:21] LABS: Albumin, Serum 3.7 g/dL (3.2-5.0); BUN 17 mg/dL (7-18); BUN/Creat Ratio 13.2 RATIO (10-20); Calcium,Total 9.2 mg/dL (8.5-10.1); Chloride 111 mmol/L (98-107); Creatinine, Serum 1.29 mg/dL (0.55-1.02); EST Glomerular Filtration Rate 46 mL/min (>60); Est Glom Filt Rate - Afr Amer 56 mL/min (>60); Glucose 173 mg/dL (74-106); Phosphorus 3.2 mg/dL (2.5-4.9); Potassium 3.9 mmol/L (3.5-5.1); Sodium Level 144 mmol/L (136-145)
== END ==
PROVIDERS: Family Provider Internal Medicine; PCP Internal Medicine; Visit Provider Internal Medicine Nephrology
DX: N18.3 Chronic kidney disease, stage 3 (moderate) (principal)
CPT/HCPCS: 36415; 80069; 85027

== ENCOUNTER → 2018-08-23 14:51 | Outpatient (CLI) | payer MEDICARE, SELFPAY ==
[2018-08-23 16:02] LABS: Absolute Lymphocyte Count 2.23 X10^3/ul (0.83-4.51); Absolute Neutrophil Count 4.8 X10^3/uL (2.0-7.7); Basophil# 0.01 X10^3/uL; Basophil% 0.1 % (0-1); Eosinophil# 0.01 X10^3/uL; Eosinophils% 0.1 % (0-5); Hematocrit 43.2 % (37-47); Lymphocyte # 2.23 X10^3/ul (4.0); Lymphocyte % 29.8 % (19-41); Mean Corp Hgb Conc 32.4 g/gl (32-36); Mean Corpuscular Hgb 32.9 pg (27.0-32.0); Mean Corpuscular Volume 101.4 fL (81-99); Mean Platelet Vol. 10.6 fl (6.2-12.0); Monocyte# 0.45 X10^3/uL; Neutrophil # 4.78 X10^3/uL (2.7-7.7); Neutrophil % 63.9 % (47-70); Platelet Count 167 K/mm3 (150-450); RBC Distribution Width CV 14.2 % (11.6-14.6); RBC Distribution Width SD 52.7 fl (35.1-43.9); Red Blood Count 4.26 M/mm3 (4.2-5.4); White Blood Count 7.5 K/mm3 (4.4-11.0)
[2018-08-23 16:06] LABS: POSITIVE COUNT NO; POSITIVE DIFFERENTIAL NO; POSITIVE MORPHOLOGY NO
[2018-08-23 16:42] LABS: ALB/GLOB Ratio 1.1 RATIO (0.9-2.4); AST(SGOT) 15 U/L (15-37); Alanine Aminotransfer ALT/SGPT 34 U/L (13-56); Albumin, Serum 3.8 g/dL (3.2-5.0); Alkaline Phosphatase 142 U/L (45-117); Anion Gap 9 (5-15); BUN 28 mg/dL (7-18); BUN/Creat Ratio 20.6 RATIO (10-20); Calcium,Total 9.2 mg/dL (8.5-10.1); Chloride 111 mmol/L (98-107); Creatinine, Serum 1.36 mg/dL (0.55-1.02); EST Glomerular Filtration Rate 44 mL/min (>60); Est Glom Filt Rate - Afr Amer 53 mL/min (>60); Globulin 3.4 g/dL (2.2-4.2); Glucose 186 mg/dL (74-106); Potassium 3.9 mmol/L (3.5-5.1); Protein, Total 7.2 g/dL (6.4-8.2); Sodium Level 143 mmol/L (136-145)
== END ==
PROVIDERS: Family Provider Internal Medicine; PCP Internal Medicine; Referring Provider Internal Medicine Rheumatology; Visit Provider Internal Medicine Rheumatology
DX: L40.59 Other psoriatic arthropathy (principal); I12.9 Hypertensive chronic kidney disease with stage 1 through stage 4 chronic kidney disease, or unspecified chronic kidney disease; E11.22 Type 2 diabetes mellitus with diabetic chronic kidney disease; N18.9 Chronic kidney disease, unspecified; M79.7 Fibromyalgia; K76.0 Fatty (change of) liver, not elsewhere classified; J45.909 Unspecified asthma, uncomplicated; E03.9 Hypothyroidism, unspecified; G47.33 Obstructive sleep apnea (adult) (pediatric); Z79.899 Other long term (current) drug therapy; Z86.718 Personal history of other venous thrombosis and embolism
CPT/HCPCS: 36415; 80053; 85025

== ENCOUNTER → 2018-11-05 13:12 | Outpatient (CLI) | payer MEDICARE, SELFPAY ==
[2018-06-07 23:59] VITALS: BMI 58.0
[2018-11-05 14:03] LABS: Protein, Urine (Random) 96.2 mg/dL (<11.9); Protein:Creat Ratio 1189 mg/g CRE (0-200)
[2018-11-05 14:51] LABS: Albumin, Serum 3.4 g/dL (3.2-5.0); BUN 39 mg/dL (7-18); BUN/Creat Ratio 19.6 RATIO (10-20); Calcium,Total 9.2 mg/dL (8.5-10.1); Chloride 109 mmol/L (98-107); Creatinine, Serum 1.99 mg/dL (0.55-1.02); EST Glomerular Filtration Rate 28 mL/min (>60); Est Glom Filt Rate - Afr Amer 34 mL/min (>60); Glucose 211 mg/dL (74-106); Phosphorus 4.3 mg/dL (2.5-4.9); Potassium 4.5 mmol/L (3.5-5.1); Sodium Level 143 mmol/L (136-145)
--- OUTSIDE RECORDS SUMMARY | 2019-02-06 23:55 | XMS RPT_ITS ---
:1965 Author Organization OHIP Support Name Relationship Address Phone D Unavailable Unavailable Unavailable LUIGI, GERHARD Unavailable [address] [place] [address] D Unavailable Unavailable Unavailable LUIGI, GERHARD Unavailable [address] + [address] [place] [address] D Unavailable Unavailable Unavailable LUIGI, GERHARD Unavailable [address] + [address] [place] [address] D Unavailable Unavailable Unavailable LUIGI, GERHARD Unavailable [address] + [address] [place] [address] D Unavailable Unavailable Unavailable LUIGI, GERHARD Unavailable [address] + [address] [place] [address] D Unavailable Unavailable Unavailable LUIGI, GERHARD Unavailable [address] + [address] [place] [address] D Unavailable Unavailable Unavailable LUIGI, GERHARD Unavailable [address] + [address] [place] [address] D Unavailable Unavailable Unavailable LUIGI, GERHARD Unavailable [address] + [address] [place] [address] D Unavailable Unavailable Unavailable LUIGI, GERHARD Unavailable [address] + [address] [place] [address] D Unavailable Unavailable Unavailable LUIGI, GERHARD Unavailable [address] + [address] [place] [address] D Unavailable Unavailable Unavailable LUIGI, GERHARD Unavailable [address] + [address] [place] [address] D Unavailable Unavailable Unavailable LUIGI, GERHARD Unavailable [address] + [address] [place] [address] D Unavailable Unavailable Unavailable LUIGI, GERHARD Unavailable [address] + [address] [place] [address] D Unavailable Unavailable Unavailable LUIGI, GERHARD Unavailable [address] + [address] [place] [address] D Unavailable Unavailable Unavailable LUIGI, GERHARD Unavailable [address] + [address] [place] [address] D Unavailable Unavailable Unavailable LUIGI, GERHARD Unavailable [address] + [address] [place] [address] D Unavailable Unavailable Unavailable LUIGI, GERHARD Unavailable [address] + [address] [place] [address] D Unavailable Unavailable Unavailable LUIGI, GERHARD Unavailable [address] + [address] [place] [address] D Unavailable Unavailable Unavailable LUIGI, GERHARD Unavailable [address] + [address] [place] [address] Care Team Providers Name Role Phone TALAMPAS, LIVIA D Attending Unavailable TALAMPAS, LIVIA D Referring Unavailable TALAMPAS, LIVIA D Referring Unavailable TALAMPAS, LIVIA D Referring Unavailable TALAMPAS, LIVIA D Referring Unavailable ARMOGIDA, AMRIT A Attending Unavailable TALAMPAS, LIVIA D Referring Unavailable TALAMPAS, LIVIA D Referring Unavailable TALAMPAS, LIVIA D Referring Unavailable TALAMPAS, LIVIA D Referring Unavailable TALAMPAS, LIVIA D Referring Unavailable TALAMPAS, LIVIA D Referring Unavailable TALAMPAS, LIVIA D Referring Unavailable TALAMPAS, LIVIA D Referring Unavailable TALAMPAS, LIVIA D Attending Unavailable TALAMPAS, LIVIA D Referring Unavailable TALAMPAS, LIVIA D Attending Unavailable TALAMPAS, LIVIA D Referring Unavailable TALAMPAS, LIVIA D Referring Unavailable RAMÍREZ, TRISH (HISTOLOGY TEACHER) Attending Unavailable TALAMPAS, LIVIA D Referring Unavailable TALAMPAS, LIVIA D Referring Unavailable TALAMPAS, LIVIA D Referring Unavailable RAMÍREZ, TRISH (HISTOLOGY TEACHER) Referring Unavailable TALAMPAS, LIVIA D Referring Unavailable TALAMPAS, LIVIA D Referring Unavailable TALAMPAS, LIVIA D Attending Unavailable TALAMPAS, LIVIA D Referring Unavailable RAMÍREZ, TRISH (HISTOLOGY TEACHER) Attending Unavailable JAYNE LORENZ (PA-C) Referring Unavailable TALAMPAS, LIVIA D Referring Unavailable LUCINDA KIM (AUTO DAMAGE APPRAISER) Attending Unavailable LUCINDA KIM (AUTO DAMAGE APPRAISER) Referring Unavailable RAMÍREZ, TRISH (HISTOLOGY TEACHER) Attending Unavailable TALAMPAS, LIVIA D Referring Unavailable RAMÍREZ, TRISH (HISTOLOGY TEACHER) Attending Unavailable TALAMPAS, LIVIA D Referring Unavailable TALAMPAS, LIVIA D Referring Unavailable KARLI REGALADO (PA) Referring Unavailable RAMÍREZ, TRISH (HISTOLOGY TEACHER) Attending Unavailable TALAMPAS, LIVIA D Referring Unavailable TALAMPAS, LIVIA D Attending Unavailable TALAMPAS, LIVIA D Referring Unavailable NASIM BECKETT Referring Unavailable NASIM BECKETT Attending Unavailable TALAMPAS, LIVIA D Referring Unavailable RAMÍREZ, TRISH (HISTOLOGY TEACHER) Attending Unavailable JarrettNorma Attending Unavailable Talampas, Livia Primary Care Unavailable Norma Farias Referring Unavailable Talampas, Livia Primary Care Unavailable Norma Farias Attending Unavailable Talampas, Livia Attending Unavailable Talampas, Livia Referring Unavailable Talampas, Livia Primary Care Unavailable Vellanki, Cat Attending Unavailable Vellanki, Cat Referring Unavailable Talampas, Livia Primary Care Unavailable Norma Farias Attending Unavailable Talampas, Livia Primary Care Unavailable Norma Farias Attending Unavailable Talampas, Livia Primary Care Unavailable Vellanki, Cat Attending Unavailable Talampas, Livia Primary Care Unavailable Bj, Doyle Attending Unavailable Talampas, Livia Primary Care Unavailable Bj, Doyle Referring Unavailable Bj, Doyle Attending Unavailable Bj, Doyle Referring Unavailable Talampas, Livia Primary Care Unavailable Vellanki, Cat Attending Unavailable Vellanki, Cat Referring Unavailable Talampas, Livia Primary Care Unavailable Vellanki, Cat Attending Unavailable Vellanki, Cat Referring Unavailable Talampas, Livia Primary Care Unavailable Vellanki, Cat Attending Unavailable Vellanki, Cat Referring Unavailable Talampas, Livia Primary Care Unavailable Talampas, Livia Primary Care Unavailable Marilyn, George Admitting Unavailable Norma Farias Consulting Unavailable Neeraj Osuna Attending Unavailable Marilyn, George Admitting Unavailable Talampas, Livia Primary Care Unavailable Marilyn, George Consulting Unavailable Sahil Zhou Attending Unavailable Marilyn, George Admitting Unavailable Neeraj Osuna Attending Unavailable Talampas, Livia Primary Care Unavailable Norma Farias Consulting Unavailable Neeraj Osuna Consulting Unavailable Marilyn, George Admitting Unavailable Neeraj Osuna Attending Unavailable Talampas, Livia Primary Care Unavailable Norma Farias Consulting Unavailable Neeraj Osuna Consulting Unavailable Norma Farias Attending Unavailable Talampas, Livia Primary Care Unavailable Norma Farias Referring Unavailable Sugar Early Attending Unavailable Cat Donato Attending Unavailable Vellanki, Cat Referring Unavailable Talampas, Livia Primary Care Unavailable PROBLEMS PROBLEMS DATE TYPE CONDITION / CODE ATTENDING STATUS SOURCE 11/18/2018 Active Pain, unspecified / NA Active [facility] R52(ICD-10) [facility] [place] Repository 11/05/2018 Unknown E11.40 - Type 2 Jarrett Norma Active [place] diabetes mellitus Community with diabetic Hospital neuropathy, Repository unspecified / E11.40(ICD-10) 11/05/2018 Unknown N17.9 - Acute Jarrett Norma Active [place] kidney failure, Community unspecified / Hospital N17.9(ICD-10) Repository 11/04/2018 Active Unspecified injury Active [facility] of left lower leg, [facility] [place] initial encounter / Repository S89.92XA(ICD-10) 11/07/2017 Active Vitamin D NA Active [facility] deficiency, [facility] [place] unspecified / Repository E55.9(ICD-10) 08/29/2012 Active Personal history of Active [facility] pulmonary embolism [facility] [place] / Z86.711(ICD-10) Repository 10/19/2018 Active Hypothyroidism, NA Active [facility] unspecified / [facility] [place] E03.9(ICD-10) Repository 09/05/2016 Active Essential (primary) Active [facility] hypertension / [facility] [place] I10(ICD-10) Repository 09/27/2018 Active Cough / R05(ICD-10) NA Active [facility] [place] Repository 08/23/2018 Unknown L40.59 - Other Vellanki, Cat Active [place] psoriatic Community arthropathy / Hospital L40.59(ICD-10) Repository 08/23/2018 Unknown 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, 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 / Hospital Z79.899(ICD-10) Repository 08/23/2018 Unknown L40.9 - Psoriasis, Vellanki, Cat Active [place] unspecified / Community L40.9(ICD-10) Hospital Repository 08/23/2018 Unknown M79.7 - Cat Donato Active [place] Fibromyalgia / Community M79.7(ICD-10) Hospital Repository 08/23/2018 Unknown N18.9 - Chronic Cat Donato Active [place] kidney disease, Community unspecified / Hospital N18.9(ICD-10) Repository 08/23/2018 Unknown I10 - Essential Cat Donato Active [place] (primary) Community hypertension / Hospital I10(ICD-10) Repository 08/23/2018 Unknown J45.909 - Tanmay Cat Active [place] Unspecified asthma, Community uncomplicated / Hospital J45.909(ICD-10) Repository 08/23/2018 Unknown E11.9 - Type 2 Tanmay Cat Active [place] diabetes mellitus Community without Hospital complications / Repository E11.9(ICD-10) 08/23/2018 Unknown E03.9 - Cat Donato Active [place] Hypothyroidism, Community unspecified / Hospital E03.9(ICD-10) Repository 08/23/2018 Unknown G47.33 - Cat Donaot Active [place] Obstructive sleep Community apnea (adult) Hospital (pediatric) / Repository G47.33(ICD-10) 08/23/2018 Unknown Z86.718 - Personal Cat Donato Active [place] history of other Community venous thrombosis Hospital and embolism / Repository Z86.718(ICD-10) 08/23/2018 Unknown K76.0 - Fatty Cat Donato Active [place] (change of) liver, Community not elsewhere Hospital classified / Repository K76.0(ICD-10) 06/14/2018 Active Hyperkalemia / NA Active [facility] E87.5(ICD-10) [facility] [place] Repository 06/14/2018 Active Acute kidney NA Active [facility] failure, [facility] [place] unspecified / Repository N17.9(ICD-10) 06/14/2018 Active Chronic kidney NA Active [facility] disease, [facility] [place] unspecified / Repository N18.9(ICD-10) 05/27/2018 Unknown G62.9 - Daniel Donatoma Active [place] Polyneuropathy, Community unspecified / Hospital G62.9(ICD-10) Repository 05/27/2018 Unknown K58.9 - Irritable [place] Cat Active [place] bowel syndrome Community without diarrhea / Hospital K58.9(ICD-10) Repository 05/27/2018 Unknown F31.9 - Bipolar Cat Donato Active [place] disorder, Community unspecified / Hospital F31.9(ICD-10) Repository 12/14/2015 Active Type 2 diabetes NA Active [facility] mellitus with [facility] [place] diabetic chronic Repository kidney disease / E11.22(ICD-10) 12/14/2015 Active Hypertensive NA Active [facility] chronic kidney [facility] [place] disease with stage Repository 1 through stage 4 chronic kidney disease, or unspecified chronic kidney disease / I12.9(ICD-10) 12/14/2015 Active Chronic kidney NA Active [facility] disease, stage 3 [facility] [place] (moderate) / Repository N18.3(ICD-10) 04/12/2018 Active 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 [facility] [place] therapy / Repository Z79.899(ICD-10) 05/09/2018 Unknown G56.02 - Carpal Bj, Doyle Active [place] tunnel syndrome, Community left upper limb / Hospital G56.02(ICD-10) Repository 12/12/2017 Unknown E11.22 - Type 2 Talampas, Livia Active [place] diabetes mellitus Community with diabetic Hospital chronic kidney Repository disease / E11.22(ICD-10) 12/12/2017 Active Unknown / TALAMPKENYETTA, LIVIA Active [facility] UNK(Unknown) D [facility] [place] Repository PROCEDURES PROCEDURES No Procedure Records FoundRESULTS RESULTS PROGRESS Observed: 12/06/2018 Status: COMPLETED Source: [place] 11:58 AM [facility] REPOSITORY HNO ID: [id number] Author: Leana Byrne (Sw) Service: (none) Author Type: Production Painter Type: Progress Notes Filed: 12/06/2018 12:21 PM Note Text: Patient stopped to see Damon for help with coumadin. Patient went to [facility] the beginning of week and states she was able to receive help with her dulera, requip, seroquel, augmentin, delsym, zofran, and halls. Patient coumadin was not available for continuous pickling line pickler. Damon contacted [facility] and [facility]. [facility] agreed to help patient with coumadin cost. [facility] stated that one of her coumadin prescriptions was for brand warfarin. Damon checked with PAULO Degroot and she made them for both generic. Patient will go to [facility] for print out to take to [facility]. [place] Medicaid states that once patient or spouse moves out of home spouse income won't be counted to see if patient can be eligible for Medicaid. Patient would also have to show her letter from [employer] that she has showing that she and spouse have petitioned for divorce. Sw and patient discussed that she is going to have to discuss with spouse living arrangement options to be able to receive assistance. Patient is also seeing counselor at [facility]. She also has been down to [facility] to see about housing voucher and is on wait list. Patient and Sw discussed housing option through [facility] and options of going to [facility]. CNSW Observed: 12/06/2018 Status: COMPLETED Source: [place] 12:00 AM [facility] REPOSIT[facility] Social Work (SHANNAN) DEBORA MEYERS ([id number]) 1965 F Date Time Provider Department 12/06/18 LEANA BYRNE) SHANNAN During your visit today, we recorded the following information about you: WENDY Pearce-RESEARCH ELECTRICIAN 12/06/2018 12:21 PM Signed Patient stopped to see Damon for help with coumadin. Patient went to [facility] the beginning of week and states she was able to receive help with her dulera, requip, seroquel, augmentin, delsym, zofran, and halls. Patient coumadin was not available for continuous pickling line pickler. Sw contacted [facility] and [facility]. [facility] agreed to help patient with coumadin cost. [facility] stated that one of her coumadin prescriptions was for brand warfarin. Sw checked with PAULO Degroot and she made them for both generic. Patient will go to [email or web address] for print out to take to [facility]. [place] Medicaid states that once patient or spouse moves out of home spouse income won't be counted to see if patient can be eligible for Medicaid. Patient would also have to show her letter from [employer] that she has showing that she and spouse have petitioned for divorce. Sw and patient discussed that she is going to have to discuss with spouse living arrangement options to be able to receive assistance. Patient is also seeing counselor at [facility]. She also has been down to [facility] to see about housing voucher and is on wait list. Patient and Sw discussed housing option through [facility] and options of going to [facility]. Allergies As of Date: 12/06/2018 Noted Allergy Reaction environmental [Other] 07/14/2005 2 - Rash 3 - Cough VITAMIN K 07/14/2005 7 - Swelling CHOLESTYRAMINE 03/31/2013 14 - Other: See Comments Comments: constipation MACROBID (NITROFURANTOIN MONOHYD/*12/06/2010 2 - Rash Comments: states that broke out all over with rash last time was given this in September 2010 peroxide [Other] 07/14/2005 5 - Intolerance SULFA (SULFONAMIDE ANTIBIOTICS) 02/05/2013 2 - Rash Date Reviewed: 12/02/2018 Reviewed by: Portia Benentt LPN - Fully Assessed Prescriptions as of 12/06/2018 Sig: WARFARIN 5 MG TABLET Current dose 5mg daily excep* WARFARIN 7.5 MG TABLET Take 1 tablet by mouth every * BLOOD SUGAR DIAGNOSTIC STRIPS Test blood sugar(s) 4 times d* LANCETS Test blood sugar(s) 4 times d* AMOXICILLIN 875 MG-POTASSIUM * Take 1 tablet by mouth twice * MOMETASONE-FORMOTEROL HFA 200* Inhale 1 Puff as instructed t* MOMETASONE-FORMOTEROL HFA 200* Inhale 1 Puff as instructed t* CLONAZEPAM 1 MG TABLET Take 0.5-1 tablets by mouth d* HYDROCHLOROTHIAZIDE 12.5 MG C* Take 1 capsule by mouth once * QUETIAPINE 25 MG TABLET Take 1-2 tablets by mouth twi* DEXTROMETHORPHAN POLISTIREX E* Take 10 mL by mouth twice trista* NYSTATIN 100,000 UNIT/ML ORAL* 1 tsp swish and swallow until* SUCRALFATE 100 MG/ML ORAL BART* Take 10 mL by mouth four time* LISINOPRIL 10 MG TABLET Take 1 tablet by mouth once d* INSULIN GLARGINE (U-100) 100 * Inject 12 Units subcutaneousl* CHLORHEXIDINE GLUCONATE 0.12 * Take 15 mL by mouth twice trista* TOPIRAMATE 100 MG TABLET Take 100 mg by mouth twice da* TIZANIDINE 2 MG TABLET Take 1 tablet by mouth every * ROPINIROLE 1 MG TABLET Take 1 tablet by mouth four t* OMEPRAZOLE 40 MG CAPSULE,LALITO* Take 1 capsule by mouth once * ALPHA LIPOIC ACID 600 MG CAPS* Take 1 capsule by mouth twice* PEN NEEDLE, DIABETIC 31 GAUGE* Use with insulin pens 5 times* TOPIRAMATE 50 MG TABLET Take 1 tablet by mouth three * MELATONIN 1 MG TABLET Take 1 tablet by mouth daily * INSULIN LISPRO (U-100) 100 UN* Inject 10 Units subcutaneousl* LORATADINE 10 MG TABLET Take 1 tablet by mouth once d* VERAPAMIL 40 MG TABLET Take 1 tablet by mouth three * ATORVASTATIN 10 MG TABLET Take 1 tablet by mouth daily * DICYCLOMINE 10 MG CAPSULE Take 1 capsule by mouth four * ONDANSETRON HCL 4 MG TABLET Take 1 tablet by mouth every * LEVOTHYROXINE 100 MCG TABLET Take 1 tablet by mouth daily * BLOOD SUGAR DIAGNOSTIC STRIPS Test blood sugar 4 x daily. D* ADALIMUMAB 40 MG/0.8 ML SUBCU* Inject 40 mg subcutaneously o* FLUTICASONE 50 MCG/ACTUATION * Use 1-2 Sprays in each nostri* CETIRIZINE 10 MG CAPSULE Take by mouth daily at bedtim* ALBUTEROL SULFATE HFA 90 MCG/* Inhale 2 Puffs as instructed * TRIAMCINOLONE ACETONIDE 0.1 %* Apply 1 application to affect* PEN NEEDLE, DIABETIC 31 GAUGE* Inject 1 Each subcutaneously * CHOLECALCIFEROL (VITAMIN D3) * Take 1 tablet by mouth once d* MULTIVITAMIN WITH MINERALS TA* Take 1 tablet by mouth three * VITAMIN E 400 UNIT CAPSULE Take 2 capsules by mouth once* Patient not taking: Reported on 11/15/2018 COMPOUNDED PRESCRIPTION SHOWER CHAIR WITH BACK D* COMPOUNDED PRESCRIPTION SUCTION STYLE GRAB BAR FOR SH* ALBUTEROL SULFATE HFA 90 MCG/* Inhale 2 Puffs as instructed * COUMADIN 1 MG TABLET take 5mg daily except for Sun* ALBUTEROL SULFATE 2.5 MG/3 ML* Use 3 mL via nebulizer every * BLOOD PRESSURE TEST KIT-WRIST* Use to check blood pressure o* HYDROXYCHLOROQUINE 200 MG TAB* Take 1 tablet by mouth once d* YASMINE-MAG ORAL Take by mouth. NYSTATIN 100,000 UNIT/GRAM TO* Apply 1 application to affect* ESCITALOPRAM 20 MG TABLET Take 1 tablet by mouth once d* COMPOUNDED PRESCRIPTION Morphine 15 mg per pump fille* LACTOBACILLUS ACIDOPHILUS 10 * Take 2 tablets by mouth daily* VITAMIN B COMPLEX TABLET Take 1 tablet by mouth once d* COMPOUNDED PRESCRIPTION Decrease BiPAP settings to 11* MISCELLANEOUS MEDICAL SUPPLY * CUSTOM JOBST KNEE HI KIRSTY* KETOCONAZOLE 2 % TOPICAL CREAM Apply 1 application to affect* OMEGA-3 FATTY ACIDS-VITAMIN E* Take 1 capsule by mouth three* Problem List As Of Date 12/06/2018 Noted Resolved OTHER LUNG DISEASE NEC [J98.4] Asthma [J45.909] OTHER UNSPEC SLEEP APNEA [G47.30] Dysmetabolic syndrome X [E88.81] 09/11/2011 Fibromyalgia [M79.7] Embolism and thrombosis (HCC) [I74.9] INVALID FOR*05/05/2018 GOITER NOS [E04.9] REFLUX ESOPHAGITIS [K21.0] NAUSEA ALONE [R11.0] ACUTE GASTRITIS W/O HEMORRHAGE [K29.00] INVALID FOR* CONSTIPATION NOS [K59.00] INVALID FOR* More... 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 Obstructive Sleep Apnea [G47.33] INVALID FOR* More... Hypothyroidism [E03.9] INVALID FOR* Exostosis of unspecified site [M89.8X9] INVALID FOR*11/27/2017 Other hammer toe (acquired) [M20.40] INVALID FOR*11/27/2017 Hx of hysterectomy [Z90.710] INVALID FOR* More... Allergic rhinitis [J30.9] More... 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] INVALID FOR* Environmental allergies [Z91.09] INVALID FOR*11/27/2017 Morbid obesity due to excess calories (HCC) [E6* Chronic kidney disease, stage III (moderate) [N*INVALID FOR*11/27/2017 Essential hypertension [I10] INVALID FOR* Nephrolithiasis [N20.0] INVALID FOR* Vitamin D deficiency [E55.9] INVALID FOR* Rheumatoid arthritis (HCC) [M06.9] INVALID FOR* Bipolar disorder, unspecified [F31.9] INVALID FOR* Alopecia, unspecified [L65.9] INVALID FOR*11/27/2017 Personal history of pulmonary embolism [Z86.711]INVALID FOR* Irritable bowel syndrome [K58.9] INVALID FOR* Neuropathy [G62.9] INVALID FOR* Incisional hernia [K43.2] INVALID FOR* Polycythemia, 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 Type 2 DM with CKD stage 3 and hypertension (HC*INVALID FOR* Polypharmacy [Z79.899] INVALID FOR* Noncompliance with treatment [Z91.19] INVALID FOR* CKD (chronic kidney disease) stage 4, GFR 15-29*INVALID FOR*08/26/2017 Nonallergic rhinitis [J31.0] INVALID FOR* History of deep vein thrombosis [Z86.718] INVALID FOR* Hypoxemia [R09.02] INVALID FOR* More... Acute kidney injury superimposed on chronic kid*INVALID FOR* Metabolic encephalopathy [G93.41] INVALID FOR* Hyperkalemia [E87.5] INVALID FOR* Abdominal pannus [E65] INVALID FOR* Anxiety [F41.9] Encounter Status:Closed by LEANA HICKMAN on 12/06/18 PROGRESS Observed: 12/05/2018 Status: COMPLETED Source: [place] 4:14 PM [facility] [place] REPOSITORY HNO ID: [id number] Author: Leana Byrne (Sw) Service: (none) Author Type: Production Painter Type: Progress Notes Filed: 12/06/2018 3:28 PM Note Text: Patient called and is still not feeling well but states that she will be in tomorrow 12/06/18 to meet with Damon for help with medications. PROGRESS Observed: 12/04/2018 Status: COMPLETED Source: [place] 9:50 AM [facility] [place] REPOSITORY HNO ID: [id number] Author: Leana Byrne (Sw) Service: (none) Author Type: Production Painter Type: Progress Notes Filed: 12/06/2018 3:28 PM Note Text: Patient states that she is still not feeling well and will put her down on SW calendar for tomorrow 12/05/18 @11am. OBSOLETE Observed: 12/04/2018 Status: COMPLETED Source: [place] 12:00 AM [facility] REPOSIT[facility] Refill (INTMWS) DEBORA MEYERS ([id number]) 1965 F Date Time Provider Department 12/04/18 LIVIA SCOTT INTHEMA During your visit today, we recorded the following information about you: Rolf Solo LPN 12/04/2018 3:10 PM Signed Patient was told she could get new DM supplies at no cost through [facility]. Patient's request for medication is as follows: Pending Prescriptions Disp Refills BLOOD-GLUCOSE METER KIT 1 Each 0 Sig: Glucose Meter of Choice - Kit - Test blood sugar(s) 4 times daily. Dx: Other DM Code E11.22 Insulin: Yes BLOOD SUGAR DIAGNOSTIC STRIPS 50 Strip 11 Sig: Test blood sugar(s) 4 times daily. Dx: Other DM Code E11.22 Insulin: Yes LANCETS 100 Each 11 Sig: Test blood sugar(s) 4 times daily. Dx: Other DM Code E11.22 Insulin: Yes Please approve the above prescription(s) to electronically send to pharmacy. Rolf Scott MD 12/04/2018 6:07 PM Signed cecilia Avila LPN 12/05/2018 9:15 AM Signed The following approved medication requests have been transmitted electronically. Signed Prescriptions Disp Refills Blood-Glucose Meter monitoring kit 1 Each 0 Sig: Glucose Meter of Choice - Kit - Test blood sugar(s) 4 times daily. Dx: Other DM Code E11.22 Insulin: Yes Authorizing Provider: LIVIA SCOTT blood sugar diagnostic (BLOOD GLUCOSE TEST) test strip 50 Strip 11 Sig: Test blood sugar(s) 4 times daily. Dx: Other DM Code E11.22 Insulin: Yes Authorizing Provider: LIVIA SCOTT Lancets lancets 100 Each 11 Sig: Test blood sugar(s) 4 times daily. Dx: Other DM Code E11.22 Insulin: Yes Authorizing Provider: LIVIA SCOTT LPN Allergies As of Date: 12/04/2018 Noted Allergy Reaction environmental [Other] 07/14/2005 2 - Rash 3 - Cough VITAMIN K 07/14/2005 7 - Swelling CHOLESTYRAMINE 03/31/2013 14 - Other: See Comments Comments: constipation MACROBID (NITROFURANTOIN MONOHYD/*12/06/2010 2 - Rash Comments: states that broke out all over with rash last time was given this in September 2010 peroxide [Other] 07/14/2005 5 - Intolerance SULFA (SULFONAMIDE ANTIBIOTICS) 02/05/2013 2 - Rash Date Reviewed: 12/02/2018 Reviewed by: Portia Bennett LPN - Fully Assessed Reason for Visit: Refill Request [94] Primary Visit Diagnosis:Type 2 DM with CKD stage 3 and hypertension (HCC) [E11.22, I12.9, N18.3] Order(s):Blood-Glucose Meter monitoring kitGlucose Meter of Choice - Kit - Test blood sugar(s) 4 times daily. Dx: Other DM Code E11.22 Insulin: YesDisp: 1 EachRfl: 0 blood sugar diagnostic (BLOOD GLUCOSE TEST) test stripTest blood sugar(s) 4 times daily. Dx: Other DM Code E11.22 Insulin: YesDisp: 50 StripRfl: 11 Lancets lancetsTest blood sugar(s) 4 times daily. Dx: Other DM Code E11.22 Insulin: YesDisp: 100 EachRfl: 11 Prescriptions as of 12/04/2018 Sig: BLOOD-GLUCOSE METER KIT Glucose Meter of Choice - Kit* BLOOD SUGAR DIAGNOSTIC STRIPS Test blood sugar(s) 4 times d* LANCETS Test blood sugar(s) 4 times d* WARFARIN 5 MG TABLET Current dose 5mg daily excep* WARFARIN 7.5 MG TABLET Take 1 tablet by mouth every * AMOXICILLIN 875 MG-POTASSIUM * Take 1 tablet by mouth twice * MOMETASONE-FORMOTEROL HFA 200* Inhale 1 Puff as instructed t* MOMETASONE-FORMOTEROL HFA 200* Inhale 1 Puff as instructed t* CLONAZEPAM 1 MG TABLET Take 0.5-1 tablets by mouth d* HYDROCHLOROTHIAZIDE 12.5 MG C* Take 1 capsule by mouth once * QUETIAPINE 25 MG TABLET Take 1-2 tablets by mouth twi* DEXTROMETHORPHAN POLISTIREX E* Take 10 mL by mouth twice trista* NYSTATIN 100,000 UNIT/ML ORAL* 1 tsp swish and swallow until* SUCRALFATE 100 MG/ML ORAL BART* Take 10 mL by mouth four time* LISINOPRIL 10 MG TABLET Take 1 tablet by mouth once d* INSULIN GLARGINE (U-100) 100 * Inject 12 Units subcutaneousl* CHLORHEXIDINE GLUCONATE 0.12 * Take 15 mL by mouth twice trista* TOPIRAMATE 100 MG TABLET Take 100 mg by mouth twice da* TIZANIDINE 2 MG TABLET Take 1 tablet by mouth every * ROPINIROLE 1 MG TABLET Take 1 tablet by mouth four t* OMEPRAZOLE 40 MG CAPSULE,LALITO* Take 1 capsule by mouth once * ALPHA LIPOIC ACID 600 MG CAPS* Take 1 capsule by mouth twice* PEN NEEDLE, DIABETIC 31 GAUGE* Use with insulin pens 5 times* TOPIRAMATE 50 MG TABLET Take 1 tablet by mouth three * MELATONIN 1 MG TABLET Take 1 tablet by mouth daily * INSULIN LISPRO (U-100) 100 UN* Inject 10 Units subcutaneousl* LORATADINE 10 MG TABLET Take 1 tablet by mouth once d* VERAPAMIL 40 MG TABLET Take 1 tablet by mouth three * ATORVASTATIN 10 MG TABLET Take 1 tablet by mouth daily * DICYCLOMINE 10 MG CAPSULE Take 1 capsule by mouth four * ONDANSETRON HCL 4 MG TABLET Take 1 tablet by mouth every * LEVOTHYROXINE 100 MCG TABLET Take 1 tablet by mouth daily * BLOOD SUGAR DIAGNOSTIC STRIPS Test blood sugar 4 x daily. D* ADALIMUMAB 40 MG/0.8 ML SUBCU* Inject 40 mg subcutaneously o* FLUTICASONE 50 MCG/ACTUATION * Use 1-2 Sprays in each nostri* CETIRIZINE 10 MG CAPSULE Take by mouth daily at bedtim* ALBUTEROL SULFATE HFA 90 MCG/* Inhale 2 Puffs as instructed * TRIAMCINOLONE ACETONIDE 0.1 %* Apply 1 application to affect* PEN NEEDLE, DIABETIC 31 GAUGE* Inject 1 Each subcutaneously * CHOLECALCIFEROL (VITAMIN D3) * Take 1 tablet by mouth once d* MULTIVITAMIN WITH MINERALS TA* Take 1 tablet by mouth three * VITAMIN E 400 UNIT CAPSULE Take 2 capsules by mouth once* Patient not taking: Reported on 11/15/2018 COMPOUNDED PRESCRIPTION SHOWER CHAIR WITH BACK D* COMPOUNDED PRESCRIPTION SUCTION STYLE GRAB BAR FOR SH* ALBUTEROL SULFATE HFA 90 MCG/* Inhale 2 Puffs as instructed * COUMADIN 1 MG TABLET take 5mg daily except for Sun* ALBUTEROL SULFATE 2.5 MG/3 ML* Use 3 mL via nebulizer every * BLOOD PRESSURE TEST KIT-WRIST* Use to check blood pressure o* HYDROXYCHLOROQUINE 200 MG TAB* Take 1 tablet by mouth once d* YASMINE-MAG ORAL Take by mouth. NYSTATIN 100,000 UNIT/GRAM TO* Apply 1 application to affect* ESCITALOPRAM 20 MG TABLET Take 1 tablet by mouth once d* COMPOUNDED PRESCRIPTION Morphine 15 mg per pump fille* LACTOBACILLUS ACIDOPHILUS 10 * Take 2 tablets by mouth daily* VITAMIN B COMPLEX TABLET Take 1 tablet by mouth once d* COMPOUNDED PRESCRIPTION Decrease BiPAP settings to 11* MISCELLANEOUS MEDICAL SUPPLY * CUSTOM JOBST KNEE HI KIRSTY* KETOCONAZOLE 2 % TOPICAL CREAM Apply 1 application to affect* OMEGA-3 FATTY ACIDS-VITAMIN E* Take 1 capsule by mouth three* Problem List As Of Date 12/04/2018 Noted Resolved OTHER LUNG DISEASE NEC [J98.4] Asthma [J45.909] OTHER UNSPEC SLEEP APNEA [G47.30] Dysmetabolic syndrome X [E88.81] 09/11/2011 Fibromyalgia [M79.7] Embolism and thrombosis (HCC) [I74.9] INVALID FOR*05/05/2018 GOITER NOS [E04.9] REFLUX ESOPHAGITIS [K21.0] NAUSEA ALONE [R11.0] ACUTE GASTRITIS W/O HEMORRHAGE [K29.00] INVALID FOR* CONSTIPATION NOS [K59.00] INVALID FOR* More... 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 Obstructive Sleep Apnea [G47.33] INVALID FOR* More... Hypothyroidism [E03.9] INVALID FOR* Exostosis of unspecified site [M89.8X9] INVALID FOR*11/27/2017 Other hammer toe (acquired) [M20.40] INVALID FOR*11/27/2017 Hx of hysterectomy [Z90.710] INVALID FOR* More... Allergic rhinitis [J30.9] More... 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] INVALID FOR* Environmental allergies [Z91.09] INVALID FOR*11/27/2017 Morbid obesity due to excess calories (HCC) [E6* Chronic kidney disease, stage III (moderate) [N*INVALID FOR*11/27/2017 Essential hypertension [I10] INVALID FOR* Nephrolithiasis [N20.0] INVALID FOR* Vitamin D deficiency [E55.9] INVALID FOR* Rheumatoid arthritis (HCC) [M06.9] INVALID FOR* Bipolar disorder, unspecified [F31.9] INVALID FOR* Alopecia, unspecified [L65.9] INVALID FOR*11/27/2017 Personal history of pulmonary embolism [Z86.711]INVALID FOR* Irritable bowel syndrome [K58.9] INVALID FOR* Neuropathy [G62.9] INVALID FOR* Incisional hernia [K43.2] INVALID FOR* Polycythemia, 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 Type 2 DM with CKD stage 3 and hypertension (HC*INVALID FOR* Polypharmacy [Z79.899] INVALID FOR* Noncompliance with treatment [Z91.19] INVALID FOR* CKD (chronic kidney disease) stage 4, GFR 15-29*INVALID FOR*08/26/2017 Nonallergic rhinitis [J31.0] INVALID FOR* History of deep vein thrombosis [Z86.718] INVALID FOR* Hypoxemia [R09.02] INVALID FOR* More... Acute kidney injury superimposed on chronic kid*INVALID FOR* Metabolic encephalopathy [G93.41] INVALID FOR* Hyperkalemia [E87.5] INVALID FOR* Abdominal pannus [E65] INVALID FOR* Anxiety [F41.9] Prescriptions ordered this encounter Disp Refills Start End BLOOD-GLUCOSE METER KIT 1 Ea* 0 12/04/2018 12/05/2018 Sig: Glucose Meter of Choice - Kit - Test blood sugar(s) 4 times daily. Dx: Other DM Code E11.22 Insulin: Yes BLOOD SUGAR DIAGNOSTIC STRIPS 50 S* 11 12/04/2018 Sig: Test blood sugar(s) 4 times daily. Dx: Other DM Code E11.22 Insulin: Yes LANCETS 100 * 11 12/04/2018 Sig: Test blood sugar(s) 4 times daily. Dx: Other DM Code E11.22 Insulin: Yes Encounter Status:Closed by VENECIA AVILA LPN on 12/05/18 PROGRESS Observed: 12/03/2018 Status: COMPLETED Source: [place] 4:07 PM [facility] REPOSIT[facility] HNO ID: [id number] Author: Leana Byrne (Sw) Service: (none) Author Type: Production Painter Type: Progress Notes Filed: 12/06/2018 3:28 PM Note Text: Patient left Sw message that she had gone down [facility] and was able to continuous pickling line pickler medications at pharmacy. Patient reports that her coumadin prescription was not at the pharmacy and has been out of coumadin now for several days. Patient asked Sw to call to set up appt to meet and see about assisting with further medication assistance. Damon called patient and left message to have call returned to set up appt to work further on help with prescriptions. OBSOLETE Observed: 12/03/2018 Status: COMPLETED Source: [place] 12:00 AM [facility] REPOSITORY Refill (FAMPWS) DEBORA MEYERS ([id number]) 1965 F Date Time Provider Department 12/03/18 LIVIA SCOTT FAMPWS During your visit today, we recorded the following information about you: Yenifer Lagunas, RN, RN 12/03/2018 6:54 PM Signed Pt needs a coumadin refill has been out of medication since last week. Current dose is 7.5 mg M,W,F 5 mg all other days Patient has been identified by name and date of : Yes Patient phones for refill(s): Pending Prescriptions Disp Refills WARFARIN 5 MG TABLET 60 tablet 11 Sig: Take 1 tablet by mouth once daily. SHENG - 7.5mg , sun and 5mg all other days or as directed SHENG: No WARFARIN 7.5 MG TABLET 60 tablet 3 Sig: Take 1 tablet by mouth daily as directed. SHENG: No Date of last office visit in primary care: 12/02/18 Last 2 Encounter Wt Readings: Date: Wt: 12/02/2018 124.3 kg (274 lb) 11/18/2018 125.5 kg (276 lb 9.6 oz) Previous labs/tests for medication: Coumadin: PT INR (no units) Date Value 10/19/2018 1.4 INR (POCT) (no units) Date Value 11/15/2018 3.5 Please advise. Thank you. LEE Ambriz MD 12/03/2018 8:47 PM Signed The following approved medication requests have been transmitted electronically. Signed Prescriptions Disp Refills warfarin (COUMADIN) 5 mg tablet 60 tablet 11 Sig: Current dose 5mg daily except 7.5 mg on Sunday, Sunday and Sunday; adjusting as directed based on INR SHENG: Yes Authorizing Provider: LIVIA SCOTT warfarin (COUMADIN) 7.5 mg tablet 60 tablet 11 Sig: Take 1 tablet by mouth every Sunday,Sunday,Sunday. Or as directed based on INRs SHENG: No Authorizing Provider: LIVIA SCOTT MD Let patient know that if cost an issue, can get less than 60 pills at a time (noted issue with insurance and losing coverage because of divorce going through) Gene Mosquera 12/04/2018 1:46 PM Signed TC to patient and message from provider given. Trish Ramírez APRN.CNS 12/06/2018 11:32 AM Signed Addended by: TRISH JACKSON on: 12/06/2018 11:32 AM Modules accepted: Orders Allergies As of Date: 12/03/2018 Noted Allergy Reaction environmental [Other] 07/14/2005 2 - Rash 3 - Cough VITAMIN K 07/14/2005 7 - Swelling CHOLESTYRAMINE 03/31/2013 14 - Other: See Comments Comments: constipation MACROBID (NITROFURANTOIN MONOHYD/*12/06/2010 2 - Rash Comments: states that broke out all over with rash last time was given this in September 2010 peroxide [Other] 07/14/2005 5 - Intolerance SULFA (SULFONAMIDE ANTIBIOTICS) 02/05/2013 2 - Rash Date Reviewed: 12/02/2018 Reviewed by: Portia Bennett LPN - Fully Assessed Reason for Visit: Refill Request [94] Visit Diagnoses:Personal history of DVT (deep vein thrombosis) [Z86.718] Anticoagulated on Coumadin [Z79.01] Order(s):warfarin (COUMADIN) 5 mg tabletCurrent dose 5mg daily except 7.5 mg on Sunday, Sunday and Sunday; adjusting as directed based on INRDisp: 60 tabletRfl: 11 warfarin (COUMADIN) 7.5 mg tabletTake 1 tablet by mouth every Sunday,Sunday,Sunday. Or as directed based on INRsDisp: 60 tabletRfl: 11 Prescriptions as of 12/03/2018 Sig: WARFARIN 5 MG TABLET Current dose 5mg daily excep* WARFARIN 7.5 MG TABLET Take 1 tablet by mouth every * AMOXICILLIN 875 MG-POTASSIUM * Take 1 tablet by mouth twice * MOMETASONE-FORMOTEROL HFA 200* Inhale 1 Puff as instructed t* MOMETASONE-FORMOTEROL HFA 200* Inhale 1 Puff as instructed t* CLONAZEPAM 1 MG TABLET Take 0.5-1 tablets by mouth d* HYDROCHLOROTHIAZIDE 12.5 MG C* Take 1 capsule by mouth once * QUETIAPINE 25 MG TABLET Take 1-2 tablets by mouth twi* DEXTROMETHORPHAN POLISTIREX E* Take 10 mL by mouth twice trista* NYSTATIN 100,000 UNIT/ML ORAL* 1 tsp swish and swallow until* SUCRALFATE 100 MG/ML ORAL BART* Take 10 mL by mouth four time* LISINOPRIL 10 MG TABLET Take 1 tablet by mouth once d* INSULIN GLARGINE (U-100) 100 * Inject 12 Units subcutaneousl* CHLORHEXIDINE GLUCONATE 0.12 * Take 15 mL by mouth twice trista* TOPIRAMATE 100 MG TABLET Take 100 mg by mouth twice da* TIZANIDINE 2 MG TABLET Take 1 tablet by mouth every * ROPINIROLE 1 MG TABLET Take 1 tablet by mouth four t* OMEPRAZOLE 40 MG CAPSULE,LALITO* Take 1 capsule by mouth once * ALPHA LIPOIC ACID 600 MG CAPS* Take 1 capsule by mouth twice* PEN NEEDLE, DIABETIC 31 GAUGE* Use with insulin pens 5 times* TOPIRAMATE 50 MG TABLET Take 1 tablet by mouth three * MELATONIN 1 MG TABLET Take 1 tablet by mouth daily * INSULIN LISPRO (U-100) 100 UN* Inject 10 Units subcutaneousl* LORATADINE 10 MG TABLET Take 1 tablet by mouth once d* VERAPAMIL 40 MG TABLET Take 1 tablet by mouth three * ATORVASTATIN 10 MG TABLET Take 1 tablet by mouth daily * DICYCLOMINE 10 MG CAPSULE Take 1 capsule by mouth four * ONDANSETRON HCL 4 MG TABLET Take 1 tablet by mouth every * LEVOTHYROXINE 100 MCG TABLET Take 1 tablet by mouth daily * BLOOD SUGAR DIAGNOSTIC STRIPS Test blood sugar 4 x daily. D* ADALIMUMAB 40 MG/0.8 ML SUBCU* Inject 40 mg subcutaneously o* FLUTICASONE 50 MCG/ACTUATION * Use 1-2 Sprays in each nostri* CETIRIZINE 10 MG CAPSULE Take by mouth daily at bedtim* ALBUTEROL SULFATE HFA 90 MCG/* Inhale 2 Puffs as instructed * TRIAMCINOLONE ACETONIDE 0.1 %* Apply 1 application to affect* PEN NEEDLE, DIABETIC 31 GAUGE* Inject 1 Each subcutaneously * CHOLECALCIFEROL (VITAMIN D3) * Take 1 tablet by mouth once d* MULTIVITAMIN WITH MINERALS TA* Take 1 tablet by mouth three * VITAMIN E 400 UNIT CAPSULE Take 2 capsules by mouth once* Patient not taking: Reported on 11/15/2018 COMPOUNDED PRESCRIPTION SHOWER CHAIR WITH BACK D* COMPOUNDED PRESCRIPTION SUCTION STYLE GRAB BAR FOR SH* ALBUTEROL SULFATE HFA 90 MCG/* Inhale 2 Puffs as instructed * COUMADIN 1 MG TABLET take 5mg daily except for Sun* ALBUTEROL SULFATE 2.5 MG/3 ML* Use 3 mL via nebulizer every * BLOOD PRESSURE TEST KIT-WRIST* Use to check blood pressure o* HYDROXYCHLOROQUINE 200 MG TAB* Take 1 tablet by mouth once d* YASMINE-MAG ORAL Take by mouth. NYSTATIN 100,000 UNIT/GRAM TO* Apply 1 application to affect* ESCITALOPRAM 20 MG TABLET Take 1 tablet by mouth once d* COMPOUNDED PRESCRIPTION Morphine 15 mg per pump fille* LACTOBACILLUS ACIDOPHILUS 10 * Take 2 tablets by mouth daily* VITAMIN B COMPLEX TABLET Take 1 tablet by mouth once d* COMPOUNDED PRESCRIPTION Decrease BiPAP settings to 11* MISCELLANEOUS MEDICAL SUPPLY * CUSTOM JOBST KNEE HI KIRSTY* KETOCONAZOLE 2 % TOPICAL CREAM Apply 1 application to affect* OMEGA-3 FATTY ACIDS-VITAMIN E* Take 1 capsule by mouth three* Problem List As Of Date 12/03/2018 Noted Resolved OTHER LUNG DISEASE NEC [J98.4] Asthma [J45.909] OTHER UNSPEC SLEEP APNEA [G47.30] Dysmetabolic syndrome X [E88.81] 09/11/2011 Fibromyalgia [M79.7] Embolism and thrombosis (HCC) [I74.9] INVALID FOR*05/05/2018 GOITER NOS [E04.9] REFLUX ESOPHAGITIS [K21.0] NAUSEA ALONE [R11.0] ACUTE GASTRITIS W/O HEMORRHAGE [K29.00] INVALID FOR* CONSTIPATION NOS [K59.00] INVALID FOR* More... 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 Obstructive Sleep Apnea [G47.33] INVALID FOR* More... Hypothyroidism [E03.9] INVALID FOR* Exostosis of unspecified site [M89.8X9] INVALID FOR*11/27/2017 Other hammer toe (acquired) [M20.40] INVALID FOR*11/27/2017 Hx of hysterectomy [Z90.710] INVALID FOR* More... Allergic rhinitis [J30.9] More... 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] INVALID FOR* Environmental allergies [Z91.09] INVALID FOR*11/27/2017 Morbid obesity due to excess calories (HCC) [E6* Chronic kidney disease, stage III (moderate) [N*INVALID FOR*11/27/2017 Essential hypertension [I10] INVALID FOR* Nephrolithiasis [N20.0] INVALID FOR* Vitamin D deficiency [E55.9] INVALID FOR* Rheumatoid arthritis (HCC) [M06.9] INVALID FOR* Bipolar disorder, unspecified [F31.9] INVALID FOR* Alopecia, unspecified [L65.9] INVALID FOR*11/27/2017 Personal history of pulmonary embolism [Z86.711]INVALID FOR* Irritable bowel syndrome [K58.9] INVALID FOR* Neuropathy [G62.9] INVALID FOR* Incisional hernia [K43.2] INVALID FOR* Polycythemia, 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 Type 2 DM with CKD stage 3 and hypertension (HC*INVALID FOR* Polypharmacy [Z79.899] INVALID FOR* Noncompliance with treatment [Z91.19] INVALID FOR* CKD (chronic kidney disease) stage 4, GFR 15-29*INVALID FOR*08/26/2017 Nonallergic rhinitis [J31.0] INVALID FOR* History of deep vein thrombosis [Z86.718] INVALID FOR* Hypoxemia [R09.02] INVALID FOR* More... Acute kidney injury superimposed on chronic kid*INVALID FOR* Metabolic encephalopathy [G93.41] INVALID FOR* Hyperkalemia [E87.5] INVALID FOR* Abdominal pannus [E65] INVALID FOR* Anxiety [F41.9] Prescriptions ordered this encounter Disp Refills Start End WARFARIN 5 MG TABLET 60 t* 11 12/03/2018 12/06/2018 Sig: Current dose 5mg daily except 7.5 mg on Sunday, Sunday and Sunday; adjusting as directed based on INR WARFARIN 7.5 MG TABLET 60 t* 11 12/04/2018 12/06/2018 Route: ORAL Sig: Take 1 tablet by mouth every Sunday,Sunday,Sunday. Or as directed based on INRs WARFARIN 5 MG TABLET 60 t* 12/06/2018 Cmt: generic ok Sig: Current dose 5mg daily except 7.5 mg on Sunday, Sunday and Sunday; adjusting as directed based on INR WARFARIN 7.5 MG TABLET 60 t* 11 12/06/2018 Cmt: generic ok Route: ORAL Sig: Take 1 tablet by mouth every Sunday,Sunday,Sunday. Or as directed based on INRs Medications Discontinued During This Encounter warfarin (COUMADIN) 5 mg tablet 60 t* 11 10/03/2017 12/03/2018 Route: ORAL Sig: Take 1 tablet by mouth once daily. SHENG - 7.5mg , sun and 5mg all other days or as directed Disc: Reason for discontinue is not on file. warfarin (COUMADIN) 7.5 mg tablet 60 t* 3 10/03/2017 12/03/2018 Route: ORAL Sig: Take 1 tablet by mouth daily as directed. Disc: Reason for discontinue is not on file. warfarin (COUMADIN) 5 mg tablet 60 t* 11 12/03/2018 12/06/2018 Sig: Current dose 5mg daily except 7.5 mg on Sunday, Sunday and Sunday; adjusting as directed based on INR Disc: Reason for discontinue is not on file. warfarin (COUMADIN) 7.5 mg tablet 60 t* 11 12/04/2018 12/06/2018 Route: ORAL Sig: Take 1 tablet by mouth every Sunday,Sunday,Sunday. Or as directed based on INRs Disc: Reason for discontinue is not on file. Encounter Status:Closed by GENE MOSQUERA on 12/04/18 PROGRESS Observed: 12/02/2018 Status: COMPLETED Source: [place] 4:20 PM [facility] REPOSITORY HNO ID: [id number] Author: Leana Byrne (Sw) Service: (none) Author Type: Production Painter Type: Progress Notes Filed: 12/06/2018 3:28 PM Note Text: Damon met with patient to discuss prescription assistance needs. Patient has dulera prescription with voucher at pharmacy so no cost to that medication. Patient other current medications at pharmacy cost approximately $56. Damon called [facility] to see about medication assistance. It is after hours there. Patient will go in to [facility] in the morning to see about help with medications. Damon will look at patient medications and see what other vouchers are available for patient medications. Damon will also see what patient assistance programs could help patient with her medications. Patient states that her spouse is not helping her with prescription costs. She is working with [employer] to help with divorce. She has also gone down to [facility] and applied for [facility] Voucher. Damon will meet with patient tomorrow when she is in for her INR to be done and see about further prescription assistance. PROGRESS Observed: 12/02/2018 Status: COMPLETED Source: [place] 3:25 PM [facility] REPOSIT[facility] HNO ID: [id number] Author: Trish Ramírez (Cns) Service: (none) Author Type: Nurse Specialist Type: Progress Notes Filed: 12/02/2018 4:07 PM Note Text: This note was created using [employer]. Gianni Meyers is a 53 year old female. She presents today with report of cough which is productive, nasal drainage and postnasal drip, ear discomfort and sore throat. She reports intermittent nausea and diarrhea. Does have headache. Reports pulse oximeter is running lower at home. Inhaler has helped with cough along with Delsym. Review of Systems Constitutional: Positive for fatigue and fever. HENT: Positive for congestion, postnasal drip, rhinorrhea, sinus pain, sinus pressure and sore throat. Negative for trouble swallowing and voice change. Eyes: Negative for discharge. Respiratory: Positive for cough, shortness of breath and wheezing. Objective BP 114/70 (BP Site: Right Arm, BP Position: Sitting, BP Cuff Size: Regular Adult) Pulse 91 Temp 37.6 ?C (99.7 ?F) Resp (!) 86 Wt 124.3 kg (274 lb) BMI 53.51 kg/m? Physical Exam Constitutional: She is oriented to person, place, and time. She appears well-developed. HENT: Head: Normocephalic and atraumatic. Right Ear: External ear and ear canal normal. A middle ear effusion is present. Left Ear: External ear and ear canal normal. A middle ear effusion is present. Nose: Mucosal edema, rhinorrhea and sinus tenderness present. Right sinus exhibits maxillary sinus tenderness. Left sinus exhibits maxillary sinus tenderness. Mouth/Throat: Uvula is midline, oropharynx is clear and moist and mucous membranes are normal. Eyes: Conjunctivae are normal. Right eye exhibits no discharge. Left eye exhibits no discharge. Pulmonary/Chest: Effort normal. No respiratory distress. She has wheezes. She has no rales. Abdominal: Soft. Neurological: She is alert and oriented to person, place, and time. Skin: Skin is warm and dry. Nursing note and vitals reviewed. Assessment and Plan 1. Acute maxillary sinusitis, recurrence not specified - ICD9: 461.0, ICD10: J01.00 (primary diagnosis) - Will begin treatment with as per antibiotic as written, see orders - AMOXICILLIN 875 MG-POTASSIUM CLAVULANATE 125 MG TABLET 2. Productive cough - ICD9: 786.2, ICD10: R05 - AMOXICILLIN 875 MG-POTASSIUM CLAVULANATE 125 MG TABLET 3. Bilateral otitis media, unspecified otitis media type - ICD9: 382.9, ICD10: H66.93 - AMOXICILLIN 875 MG-POTASSIUM CLAVULANATE 125 MG TABLET Continue to use albuterol inhaler as needed for cough and wheezing If able to get to Dulera inhaler this may help with cough Continue to use dextromethorphan?Delsym for cough Take amoxicillin clavulanic acid?Augmentin- for respiratory illness, take with food. Take deep breaths 10 times every hour while awake, wear oxygen at night with CPAP Return to clinic in 1 week for recheck, sooner if not feeling improved Trish Ramírez APRN.KHALIF CNOV Observed: 12/02/2018 Status: COMPLETED Source: [place] 3:20 PM [facility] REPOSIT[facility] Office Visit (INTMWS) DEBORA MEYERS ([id number]) 1965 F Date Time Provider Department 12/02/18 3:20 PM TRISH RAMÍREZ (KHALIF) INTMWS During your visit today, we recorded the following information about you: Temperature Pulse Respiration Blood pressure 99.7 degrees 91/minute 16/minute 114/70 Weight 124.3 kg Trish Ramírez APRN.CNS 12/02/2018 4:07 PM Signed This note was created using [email or web address]. Subjective Debora Meyers is a 53 year old female. She presents today with report of cough which is productive, nasal drainage and postnasal drip, ear discomfort and sore throat. She reports intermittent nausea and diarrhea. Does have headache. Reports pulse oximeter is running lower at home. Inhaler has helped with cough along with Delsym. Review of Systems Constitutional: Positive for fatigue and fever. HENT: Positive for congestion, postnasal drip, rhinorrhea, sinus pain, sinus pressure and sore throat. Negative for trouble swallowing and voice change. Eyes: Negative for discharge. Respiratory: Positive for cough, shortness of breath and wheezing. Objective BP 114/70 (BP Site: Right Arm, BP Position: Sitting, BP Cuff Size: Regular Adult) Pulse 91 Temp 37.6 ?C (99.7 ?F) Resp (!) 86 Wt 124.3 kg (274 lb) BMI 53.51 kg/m? Physical Exam Constitutional: She is oriented to person, place, and time. She appears well-developed. HENT: Head: Normocephalic and atraumatic. Right Ear: External ear and ear canal normal. A middle ear effusion is present. Left Ear: External ear and ear canal normal. A middle ear effusion is present. Nose: Mucosal edema, rhinorrhea and sinus tenderness present. Right sinus exhibits maxillary sinus tenderness. Left sinus exhibits maxillary sinus tenderness. Mouth/Throat: Uvula is midline, oropharynx is clear and moist and mucous membranes are normal. Eyes: Conjunctivae are normal. Right eye exhibits no discharge. Left eye exhibits no discharge. Pulmonary/Chest: Effort normal. No respiratory distress. She has wheezes. She has no rales. Abdominal: Soft. Neurological: She is alert and oriented to person, place, and time. Skin: Skin is warm and dry. Nursing note and vitals reviewed. Assessment and Plan 1. Acute maxillary sinusitis, recurrence not specified - ICD9: 461.0, ICD10: J01.00 (primary diagnosis) - Will begin treatment with as per antibiotic as written, see orders - AMOXICILLIN 875 MG-POTASSIUM CLAVULANATE 125 MG TABLET 2. Productive cough - ICD9: 786.2, ICD10: R05 - AMOXICILLIN 875 MG-POTASSIUM CLAVULANATE 125 MG TABLET 3. Bilateral otitis media, unspecified otitis media type - ICD9: 382.9, ICD10: H66.93 - AMOXICILLIN 875 MG-POTASSIUM CLAVULANATE 125 MG TABLET Continue to use albuterol inhaler as needed for cough and wheezing If able to get to Dulera inhaler this may help with cough Continue to use dextromethorphan?Delsym for cough Take amoxicillin clavulanic acid?Augmentin- for respiratory illness, take with food. Take deep breaths 10 times every hour while awake, wear oxygen at night with CPAP Return to clinic in 1 week for recheck, sooner if not feeling improved Trish Ramírez APRN.HISTOLOGY TEACHER Trish Ramírez APRN.HISTOLOGY TEACHER 12/02/2018 3:52 PM Signed Continue to use albuterol inhaler as needed for cough and wheezing If able to get to Dulera inhaler this may help with cough Continue to use dextromethorphan?Delsym for cough Take amoxicillin clavulanic acid?Augmentin- for respiratory illness, take with food. Take deep breaths 10 times every hour while awake, wear oxygen at night with CPAP Return to clinic in 1 week for recheck, sooner if not feeling improved Referring Provider: SELF [200] Allergies As of Date: 12/02/2018 Noted Allergy Reaction environmental [Other] 07/14/2005 2 - Rash 3 - Cough VITAMIN K 07/14/2005 7 - Swelling CHOLESTYRAMINE 03/31/2013 14 - Other: See Comments Comments: constipation MACROBID (NITROFURANTOIN MONOHYD/*12/06/2010 2 - Rash Comments: states that broke out all over with rash last time was given this in September 2010 peroxide [Other] 07/14/2005 5 - Intolerance SULFA (SULFONAMIDE ANTIBIOTICS) 02/05/2013 2 - Rash Date Reviewed: 12/02/2018 Reviewed by: Portia Bennett LPN - Fully Assessed Reason for Visit: URI [115] Primary Visit Diagnosis:Acute maxillary sinusitis, recurrence not specified [J01.00] Other Visit Diagnoses:Productive cough [R05] Bilateral otitis media, unspecified otitis media type [H66.93] Order(s):amoxicillin-clavulanic acid (AUGMENTIN) 875-125 mg per tabletTake 1 tablet by mouth twice daily for 10 days. Take with foodDisp: 20 tabletRfl: 0 Prescriptions as of 12/02/2018 Sig: AMOXICILLIN 875 MG-POTASSIUM * Take 1 tablet by mouth twice * MOMETASONE-FORMOTEROL HFA 200* Inhale 1 Puff as instructed t* MOMETASONE-FORMOTEROL HFA 200* Inhale 1 Puff as instructed t* CLONAZEPAM 1 MG TABLET Take 0.5-1 tablets by mouth d* HYDROCHLOROTHIAZIDE 12.5 MG C* Take 1 capsule by mouth once * QUETIAPINE 25 MG TABLET Take 1-2 tablets by mouth twi* DEXTROMETHORPHAN POLISTIREX E* Take 10 mL by mouth twice trista* NYSTATIN 100,000 UNIT/ML ORAL* 1 tsp swish and swallow until* SUCRALFATE 100 MG/ML ORAL BART* Take 10 mL by mouth four time* LISINOPRIL 10 MG TABLET Take 1 tablet by mouth once d* INSULIN GLARGINE (U-100) 100 * Inject 12 Units subcutaneousl* CHLORHEXIDINE GLUCONATE 0.12 * Take 15 mL by mouth twice trista* TOPIRAMATE 100 MG TABLET Take 100 mg by mouth twice da* TIZANIDINE 2 MG TABLET Take 1 tablet by mouth every * ROPINIROLE 1 MG TABLET Take 1 tablet by mouth four t* OMEPRAZOLE 40 MG CAPSULE,LALITO* Take 1 capsule by mouth once * ALPHA LIPOIC ACID 600 MG CAPS* Take 1 capsule by mouth twice* PEN NEEDLE, DIABETIC 31 GAUGE* Use with insulin pens 5 times* TOPIRAMATE 50 MG TABLET Take 1 tablet by mouth three * MELATONIN 1 MG TABLET Take 1 tablet by mouth daily * INSULIN LISPRO (U-100) 100 UN* Inject 10 Units subcutaneousl* LORATADINE 10 MG TABLET Take 1 tablet by mouth once d* VERAPAMIL 40 MG TABLET Take 1 tablet by mouth three * ATORVASTATIN 10 MG TABLET Take 1 tablet by mouth daily * DICYCLOMINE 10 MG CAPSULE Take 1 capsule by mouth four * ONDANSETRON HCL 4 MG TABLET Take 1 tablet by mouth every * LEVOTHYROXINE 100 MCG TABLET Take 1 tablet by mouth daily * BLOOD SUGAR DIAGNOSTIC STRIPS Test blood sugar 4 x daily. D* ADALIMUMAB 40 MG/0.8 ML SUBCU* Inject 40 mg subcutaneously o* FLUTICASONE 50 MCG/ACTUATION * Use 1-2 Sprays in each nostri* CETIRIZINE 10 MG CAPSULE Take by mouth daily at bedtim* ALBUTEROL SULFATE HFA 90 MCG/* Inhale 2 Puffs as instructed * TRIAMCINOLONE ACETONIDE 0.1 %* Apply 1 application to affect* PEN NEEDLE, DIABETIC 31 GAUGE* Inject 1 Each subcutaneously * CHOLECALCIFEROL (VITAMIN D3) * Take 1 tablet by mouth once d* WARFARIN 7.5 MG TABLET Take 1 tablet by mouth daily * WARFARIN 5 MG TABLET Take 1 tablet by mouth once d* MULTIVITAMIN WITH MINERALS TA* Take 1 tablet by mouth three * VITAMIN E 400 UNIT CAPSULE Take 2 capsules by mouth once* Patient not taking: Reported on 11/15/2018 COMPOUNDED PRESCRIPTION SHOWER CHAIR WITH BACK D* COMPOUNDED PRESCRIPTION SUCTION STYLE GRAB BAR FOR SH* ALBUTEROL SULFATE HFA 90 MCG/* Inhale 2 Puffs as instructed * COUMADIN 1 MG TABLET take 5mg daily except for Sun* ALBUTEROL SULFATE 2.5 MG/3 ML* Use 3 mL via nebulizer every * BLOOD PRESSURE TEST KIT-WRIST* Use to check blood pressure o* HYDROXYCHLOROQUINE 200 MG TAB* Take 1 tablet by mouth once d* YASMINE-MAG ORAL Take by mouth. NYSTATIN 100,000 UNIT/GRAM TO* Apply 1 application to affect* ESCITALOPRAM 20 MG TABLET Take 1 tablet by mouth once d* COMPOUNDED PRESCRIPTION Morphine 15 mg per pump fille* LACTOBACILLUS ACIDOPHILUS 10 * Take 2 tablets by mouth daily* VITAMIN B COMPLEX TABLET Take 1 tablet by mouth once d* COMPOUNDED PRESCRIPTION Decrease BiPAP settings to 11* MISCELLANEOUS MEDICAL SUPPLY * CUSTOM JOBST KNEE HI KIRSTY* KETOCONAZOLE 2 % TOPICAL CREAM Apply 1 application to affect* OMEGA-3 FATTY ACIDS-VITAMIN E* Take 1 capsule by mouth three* Problem List As Of Date 12/02/2018 Noted Resolved OTHER LUNG DISEASE NEC [J98.4] Asthma [J45.909] OTHER UNSPEC SLEEP APNEA [G47.30] Dysmetabolic syndrome X [E88.81] 09/11/2011 Fibromyalgia [M79.7] Embolism and thrombosis (HCC) [I74.9] INVALID FOR*05/05/2018 GOITER NOS [E04.9] REFLUX ESOPHAGITIS [K21.0] NAUSEA ALONE [R11.0] ACUTE GASTRITIS W/O HEMORRHAGE [K29.00] INVALID FOR* CONSTIPATION NOS [K59.00] INVALID FOR* More... 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 Obstructive Sleep Apnea [G47.33] INVALID FOR* More... Hypothyroidism [E03.9] INVALID FOR* Exostosis of unspecified site [M89.8X9] INVALID FOR*11/27/2017 Other hammer toe (acquired) [M20.40] INVALID FOR*11/27/2017 Hx of hysterectomy [Z90.710] INVALID FOR* More... Allergic rhinitis [J30.9] More... 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] INVALID FOR* Environmental allergies [Z91.09] INVALID FOR*11/27/2017 Morbid obesity due to excess calories (HCC) [E6* Chronic kidney disease, stage III (moderate) [N*INVALID FOR*11/27/2017 Essential hypertension [I10] INVALID FOR* Nephrolithiasis [N20.0] INVALID FOR* Vitamin D deficiency [E55.9] INVALID FOR* Rheumatoid arthritis (HCC) [M06.9] INVALID FOR* Bipolar disorder, unspecified [F31.9] INVALID FOR* Alopecia, unspecified [L65.9] INVALID FOR*11/27/2017 Personal history of pulmonary embolism [Z86.711]INVALID FOR* Irritable bowel syndrome [K58.9] INVALID FOR* Neuropathy [G62.9] INVALID FOR* Incisional hernia [K43.2] INVALID FOR* Polycythemia, 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 Type 2 DM with CKD stage 3 and hypertension (HC*INVALID FOR* Polypharmacy [Z79.899] INVALID FOR* Noncompliance with treatment [Z91.19] INVALID FOR* CKD (chronic kidney disease) stage 4, GFR 15-29*INVALID FOR*08/26/2017 Nonallergic rhinitis [J31.0] INVALID FOR* History of deep vein thrombosis [Z86.718] INVALID FOR* Hypoxemia [R09.02] INVALID FOR* More... Acute kidney injury superimposed on chronic kid*INVALID FOR* Metabolic encephalopathy [G93.41] INVALID FOR* Hyperkalemia [E87.5] INVALID FOR* Abdominal pannus [E65] INVALID FOR* Anxiety [F41.9] Other instructions from your clinician: Continue to use albuterol inhaler as needed for cough and wheezing If able to get to Dulera inhaler this may help with cough Continue to use dextromethorphan?Delsym for cough Take amoxicillin clavulanic acid?Augmentin- for respiratory illness, take with food. Take deep breaths 10 times every hour while awake, wear oxygen at night with CPAP Return to clinic in 1 week for recheck, sooner if not feeling improved Prescriptions ordered this encounter Disp Refills Start End AMOXICILLIN 875 MG-POTASSIUM CLAVULA* 20 t* 0 12/02/2018 12/12/2018 Route: ORAL Sig: Take 1 tablet by mouth twice daily for 10 days. Take with food Medications Discontinued During This Encounter enoxaparin (LOVENOX) 40 mg/0.4 mL sy* 10 S* 1 08/08/2018 12/02/2018 Class: Print RX Si mg subcutaneous every 12 hours starting August 12 in the morning; take only the morning dose August 14; do not take August 15 (day of procedure); resume 40 mg every 12 hours starting evening of August 16 ; continue until INR therapeutic Patient not taking: Reported on 11/15/2018 Disc: Reason for discontinue is not on file. oseltamivir (TAMIFLU) 75 mg capsule 10 c* 0 11/08/2018 12/02/2018 Route: ORAL Sig: Take 1 capsule by mouth twice daily for 5 days. Disc: Reason for discontinue is not on file. amoxicillin-clavulanic acid (AUGMENT* 20 t* 0 11/27/2017 12/02/2018 Route: ORAL Sig: Take 1 tablet by mouth twice daily for 10 days. Disc: Reason for discontinue is not on file. Encounter Status:Closed by TRISH JACKSON on 12/02/18 SOSA Observed: 12/02/2018 Status: COMPLETED Source: [place] 12:00 AM [facility] REPOSITORY Social Work (SHANNAN) DEBORA MEYERS ([id number]) 1965 F Date Time Provider Department 12/02/18 LEANA BYRNE) SHANNAN During your visit today, we recorded the following information about you: WENDY Pearce-EDIE 12/06/2018 3:28 PM Signed Damon met with patient to discuss prescription assistance needs. Patient has dulera prescription with voucher at pharmacy so no cost to that medication. Patient other current medications at pharmacy cost approximately $56. Damon called [facility] to see about medication assistance. It is after hours there. Patient will go in to [facility] in the morning to see about help with medications. Sw will look at patient medications and see what other vouchers are available for patient medications. Sw will also see what patient assistance programs could help patient with her medications. Patient states that her spouse is not helping her with prescription costs. She is working with Management Retail Intern to help with divorce. She has also gone down to [facility] and applied for [facility] Voucher. Sw will meet with patient tomorrow when she is in for her INR to be done and see about further prescription assistance. Leana ByrneWENDY-RESEARCH ELECTRICIAN 12/06/2018 3:28 PM Signed Patient left Sw message that she had gone down to [facility] and was able to continuous pickling line pickler medications at pharmacy. Patient reports that her coumadin prescription was not at the pharmacy and has been out of coumadin now for several days. Patient asked Sw to call to set up appt to meet and see about assisting with further medication assistance. Sw called patient and left message to have call returned to set up appt to work further on help with prescriptions. Leana ByrneWENDY-RESEARCH ELECTRICIAN 12/06/2018 3:28 PM Signed Patient states that she is still not feeling well and Sw will put her down on calendar for tomorrow 12/05/18 @11am. Leana ByrneWENDY-RESEARCH ELECTRICIAN 12/06/2018 3:28 PM Signed Patient called and is still not feeling well but states that she will be in tomorrow 12/06/18 to meet with Sw for help with medications. Allergies As of Date: 12/02/2018 Noted Allergy Reaction environmental [Other] 07/14/2005 2 - Rash 3 - Cough VITAMIN K 07/14/2005 7 - Swelling CHOLESTYRAMINE 03/31/2013 14 - Other: See Comments Comments: constipation MACROBID (NITROFURANTOIN MONOHYD/*12/06/2010 2 - Rash Comments: states that broke out all over with rash last time was given this in September 2010 peroxide [Other] 07/14/2005 5 - Intolerance SULFA (SULFONAMIDE ANTIBIOTICS) 02/05/2013 2 - Rash Date Reviewed: 12/02/2018 Reviewed by: Portia Bennett LPN - Fully Assessed Prescriptions as of 12/02/2018 Sig: AMOXICILLIN 875 MG-POTASSIUM * Take 1 tablet by mouth twice * MOMETASONE-FORMOTEROL HFA 200* Inhale 1 Puff as instructed t* MOMETASONE-FORMOTEROL HFA 200* Inhale 1 Puff as instructed t* CLONAZEPAM 1 MG TABLET Take 0.5-1 tablets by mouth d* HYDROCHLOROTHIAZIDE 12.5 MG C* Take 1 capsule by mouth once * QUETIAPINE 25 MG TABLET Take 1-2 tablets by mouth twi* DEXTROMETHORPHAN POLISTIREX E* Take 10 mL by mouth twice trista* NYSTATIN 100,000 UNIT/ML ORAL* 1 tsp swish and swallow until* SUCRALFATE 100 MG/ML ORAL BART* Take 10 mL by mouth four time* LISINOPRIL 10 MG TABLET Take 1 tablet by mouth once d* INSULIN GLARGINE (U-100) 100 * Inject 12 Units subcutaneousl* CHLORHEXIDINE GLUCONATE 0.12 * Take 15 mL by mouth twice trista* TOPIRAMATE 100 MG TABLET Take 100 mg by mouth twice da* TIZANIDINE 2 MG TABLET Take 1 tablet by mouth every * ROPINIROLE 1 MG TABLET Take 1 tablet by mouth four t* OMEPRAZOLE 40 MG CAPSULE,LALITO* Take 1 capsule by mouth once * ALPHA LIPOIC ACID 600 MG CAPS* Take 1 capsule by mouth twice* PEN NEEDLE, DIABETIC 31 GAUGE* Use with insulin pens 5 times* TOPIRAMATE 50 MG TABLET Take 1 tablet by mouth three * MELATONIN 1 MG TABLET Take 1 tablet by mouth daily * INSULIN LISPRO (U-100) 100 UN* Inject 10 Units subcutaneousl* LORATADINE 10 MG TABLET Take 1 tablet by mouth once d* VERAPAMIL 40 MG TABLET Take 1 tablet by mouth three * ATORVASTATIN 10 MG TABLET Take 1 tablet by mouth daily * DICYCLOMINE 10 MG CAPSULE Take 1 capsule by mouth four * ONDANSETRON HCL 4 MG TABLET Take 1 tablet by mouth every * LEVOTHYROXINE 100 MCG TABLET Take 1 tablet by mouth daily * BLOOD SUGAR DIAGNOSTIC STRIPS Test blood sugar 4 x daily. D* ADALIMUMAB 40 MG/0.8 ML SUBCU* Inject 40 mg subcutaneously o* FLUTICASONE 50 MCG/ACTUATION * Use 1-2 Sprays in each nostri* CETIRIZINE 10 MG CAPSULE Take by mouth daily at bedtim* ALBUTEROL SULFATE HFA 90 MCG/* Inhale 2 Puffs as instructed * TRIAMCINOLONE ACETONIDE 0.1 %* Apply 1 application to affect* PEN NEEDLE, DIABETIC 31 GAUGE* Inject 1 Each subcutaneously * CHOLECALCIFEROL (VITAMIN D3) * Take 1 tablet by mouth once d* X WARFARIN 7.5 MG TABLET Take 1 tablet by mouth daily * X WARFARIN 5 MG TABLET Take 1 tablet by mouth once d* MULTIVITAMIN WITH MINERALS TA* Take 1 tablet by mouth three * VITAMIN E 400 UNIT CAPSULE Take 2 capsules by mouth once* Patient not taking: Reported on 11/15/2018 COMPOUNDED PRESCRIPTION SHOWER CHAIR WITH BACK D* COMPOUNDED PRESCRIPTION SUCTION STYLE GRAB BAR FOR SH* ALBUTEROL SULFATE HFA 90 MCG/* Inhale 2 Puffs as instructed * COUMADIN 1 MG TABLET take 5mg daily except for Sun* ALBUTEROL SULFATE 2.5 MG/3 ML* Use 3 mL via nebulizer every * BLOOD PRESSURE TEST KIT-WRIST* Use to check blood pressure o* HYDROXYCHLOROQUINE 200 MG TAB* Take 1 tablet by mouth once d* YASMINE-MAG ORAL Take by mouth. NYSTATIN 100,000 UNIT/GRAM TO* Apply 1 application to affect* ESCITALOPRAM 20 MG TABLET Take 1 tablet by mouth once d* COMPOUNDED PRESCRIPTION Morphine 15 mg per pump fille* LACTOBACILLUS ACIDOPHILUS 10 * Take 2 tablets by mouth daily* VITAMIN B COMPLEX TABLET Take 1 tablet by mouth once d* COMPOUNDED PRESCRIPTION Decrease BiPAP settings to 11* MISCELLANEOUS MEDICAL SUPPLY * CUSTOM JOBST KNEE HI KIRSTY* KETOCONAZOLE 2 % TOPICAL CREAM Apply 1 application to affect* OMEGA-3 FATTY ACIDS-VITAMIN E* Take 1 capsule by mouth three* Problem List As Of Date 12/02/2018 Noted Resolved OTHER LUNG DISEASE NEC [J98.4] Asthma [J45.909] OTHER UNSPEC SLEEP APNEA [G47.30] Dysmetabolic syndrome X [E88.81] 09/11/2011 Fibromyalgia [M79.7] Embolism and thrombosis (HCC) [I74.9] INVALID FOR*05/05/2018 GOITER NOS [E04.9] REFLUX ESOPHAGITIS [K21.0] NAUSEA ALONE [R11.0] ACUTE GASTRITIS W/O HEMORRHAGE [K29.00] INVALID FOR* CONSTIPATION NOS [K59.00] INVALID FOR* More... 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 Obstructive Sleep Apnea [G47.33] INVALID FOR* More... Hypothyroidism [E03.9] INVALID FOR* Exostosis of unspecified site [M89.8X9] INVALID FOR*11/27/2017 Other hammer toe (acquired) [M20.40] INVALID FOR*11/27/2017 Hx of hysterectomy [Z90.710] INVALID FOR* More... Allergic rhinitis [J30.9] More... 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] INVALID FOR* Environmental allergies [Z91.09] INVALID FOR*11/27/2017 Morbid obesity due to excess calories (HCC) [E6* Chronic kidney disease, stage III (moderate) [N*INVALID FOR*11/27/2017 Essential hypertension [I10] INVALID FOR* Nephrolithiasis [N20.0] INVALID FOR* Vitamin D deficiency [E55.9] INVALID FOR* Rheumatoid arthritis (HCC) [M06.9] INVALID FOR* Bipolar disorder, unspecified [F31.9] INVALID FOR* Alopecia, unspecified [L65.9] INVALID FOR*11/27/2017 Personal history of pulmonary embolism [Z86.711]INVALID FOR* Irritable bowel syndrome [K58.9] INVALID FOR* Neuropathy [G62.9] INVALID FOR* Incisional hernia [K43.2] INVALID FOR* Polycythemia, 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 Type 2 DM with CKD stage 3 and hypertension (HC*INVALID FOR* Polypharmacy [Z79.899] INVALID FOR* Noncompliance with treatment [Z91.19] INVALID FOR* CKD (chronic kidney disease) stage 4, GFR 15-29*INVALID FOR*08/26/2017 Nonallergic rhinitis [J31.0] INVALID FOR* History of deep vein thrombosis [Z86.718] INVALID FOR* Hypoxemia [R09.02] INVALID FOR* More... Acute kidney injury superimposed on chronic kid*INVALID FOR* Metabolic encephalopathy [G93.41] INVALID FOR* Hyperkalemia [E87.5] INVALID FOR* Abdominal pannus [E65] INVALID FOR* Anxiety [F41.9] Follow-up and Disposition History Recorded Encounter Status:Closed by LEANA HICKMAN on 12/06/18 ANNIE Observed: 11/29/2018 Status: COMPLETED Source: [place] 12:00 AM [facility] REPOSITORY Telephone (NAVWST) DEBORA MEYERS ([id number]) 1965 F Date Time Provider Department 11/29/18 LEANA BYRNE (DAMON) NAVWST During your visit today, we recorded the following information about you: WENDY Pearce-EDIE 11/29/2018 9:58 AM Signed Patient called Damon as she is not out of her breo inhaler and is almost out of coumadin. Patient is going through divorce from her spouse and he is not helping with cost of her medications. She receives $409 a month from . Since she is still and he lives in the home she is not able to qualify for many assistance programs. Damon spoke with Brian, Pharm D and she said that Dulera could be an alternative for breo. Dulera has free 30 day voucher on our website. Breo does not have voucher. Patient said that she has gone to [facility] this year not sure if they will help again and it is Sunday and they don't usually provide any financial assistance on Fridays. Damon will speak with patient about asking insurance if has any assistance through post acute care registered nurse that could assist with prescription cost needs. Dr. Scott, What do you think about writing up Dulera prescription and I will print off voucher to see if patient can use at pharmacy for free 30 day?? WENDY Alas-RESEARCH ELECTRICIAN 11/29/2018 4:26 PM Signed Damon left patient message that she is looking to about alternative inhaler ie. Dulera that has voucher available. Damon also placed patient down on her schedule to see Sunday to see what Sw can do to assist patient with multiple medications. Leana Caty, GLIDING PILOT INSTRUCTOR-RESEARCH ELECTRICIAN 11/29/2018 4:26 PM Signed Patient states that she is out of her breo but has her emergency inhaler. Sw noted that she is checking with Dr. Scott about Dulera option. Sw noted that she will also see patient when she is in on Sunday to see KHALIF Degroot to come up with plan to assist with prescriptions. Livia Scott MD 11/29/2018 6:47 PM Signed Printed coupon for free one and for the voucher for the RX I sent with 5 RF (could be for 12 refills)--these are for if have insurance. There was another thing for Dulera if no insurance, but looks like she has [employer] so would qualify for the above coupon and voucher instead Faxed all to [facility] Allergies As of Date: 11/29/2018 Noted Allergy Reaction environmental [Other] 07/14/2005 2 - Rash 3 - Cough VITAMIN K 07/14/2005 7 - Swelling CHOLESTYRAMINE 03/31/2013 14 - Other: See Comments Comments: constipation MACROBID (NITROFURANTOIN MONOHYD/*12/06/2010 2 - Rash Comments: states that broke out all over with rash last time was given this in September 2010 peroxide [Other] 07/14/2005 5 - Intolerance SULFA (SULFONAMIDE ANTIBIOTICS) 02/05/2013 2 - Rash Date Reviewed: 11/18/2018 Reviewed by: Nasim Beckett - Fully Assessed Reason for Visit: prescription assistance [Other] Order(s):mometasone-formoterol (DULERA) 200-5 mcg/actuation inhalerInhale 1 Puff as instructed twice daily.Disp: 1 InhalerRfl: 5 mometasone-formoterol (DULERA) 200-5 mcg/actuation inhalerInhale 1 Puff as instructed twice daily.Disp: 1 InhalerRfl: 0 Prescriptions as of 11/29/2018 Sig: MOMETASONE-FORMOTEROL HFA 200* Inhale 1 Puff as instructed t* MOMETASONE-FORMOTEROL HFA 200* Inhale 1 Puff as instructed t* CLONAZEPAM 1 MG TABLET Take 0.5-1 tablets by mouth d* HYDROCHLOROTHIAZIDE 12.5 MG C* Take 1 capsule by mouth once * QUETIAPINE 25 MG TABLET Take 1-2 tablets by mouth twi* DEXTROMETHORPHAN POLISTIREX E* Take 10 mL by mouth twice trista* NYSTATIN 100,000 UNIT/ML ORAL* 1 tsp swish and swallow until* SUCRALFATE 100 MG/ML ORAL BART* Take 10 mL by mouth four time* LISINOPRIL 10 MG TABLET Take 1 tablet by mouth once d* INSULIN GLARGINE (U-100) 100 * Inject 12 Units subcutaneousl* CHLORHEXIDINE GLUCONATE 0.12 * Take 15 mL by mouth twice trista* TOPIRAMATE 100 MG TABLET Take 100 mg by mouth twice da* TIZANIDINE 2 MG TABLET Take 1 tablet by mouth every * ROPINIROLE 1 MG TABLET Take 1 tablet by mouth four t* OMEPRAZOLE 40 MG CAPSULE,LALITO* Take 1 capsule by mouth once * X ENOXAPARIN 40 MG/0.4 ML SUBCU* 40 mg subcutaneous every 12 h* Patient not taking: Reported on 11/15/2018 ALPHA LIPOIC ACID 600 MG CAPS* Take 1 capsule by mouth twice* PEN NEEDLE, DIABETIC 31 GAUGE* Use with insulin pens 5 times* TOPIRAMATE 50 MG TABLET Take 1 tablet by mouth three * MELATONIN 1 MG TABLET Take 1 tablet by mouth daily * INSULIN LISPRO (U-100) 100 UN* Inject 10 Units subcutaneousl* LORATADINE 10 MG TABLET Take 1 tablet by mouth once d* VERAPAMIL 40 MG TABLET Take 1 tablet by mouth three * ATORVASTATIN 10 MG TABLET Take 1 tablet by mouth daily * DICYCLOMINE 10 MG CAPSULE Take 1 capsule by mouth four * ONDANSETRON HCL 4 MG TABLET Take 1 tablet by mouth every * LEVOTHYROXINE 100 MCG TABLET Take 1 tablet by mouth daily * BLOOD SUGAR DIAGNOSTIC STRIPS Test blood sugar 4 x daily. D* ADALIMUMAB 40 MG/0.8 ML SUBCU* Inject 40 mg subcutaneously o* FLUTICASONE 50 MCG/ACTUATION * Use 1-2 Sprays in each nostri* CETIRIZINE 10 MG CAPSULE Take by mouth daily at bedtim* ALBUTEROL SULFATE HFA 90 MCG/* Inhale 2 Puffs as instructed * TRIAMCINOLONE ACETONIDE 0.1 %* Apply 1 application to affect* PEN NEEDLE, DIABETIC 31 GAUGE* Inject 1 Each subcutaneously * CHOLECALCIFEROL (VITAMIN D3) * Take 1 tablet by mouth once d* X WARFARIN 7.5 MG TABLET Take 1 tablet by mouth daily * X WARFARIN 5 MG TABLET Take 1 tablet by mouth once d* MULTIVITAMIN WITH MINERALS TA* Take 1 tablet by mouth three * VITAMIN E 400 UNIT CAPSULE Take 2 capsules by mouth once* Patient not taking: Reported on 11/15/2018 COMPOUNDED PRESCRIPTION SHOWER CHAIR WITH BACK D* COMPOUNDED PRESCRIPTION SUCTION STYLE GRAB BAR FOR SH* ALBUTEROL SULFATE HFA 90 MCG/* Inhale 2 Puffs as instructed * COUMADIN 1 MG TABLET take 5mg daily except for Sun* ALBUTEROL SULFATE 2.5 MG/3 ML* Use 3 mL via nebulizer every * BLOOD PRESSURE TEST KIT-WRIST* Use to check blood pressure o* HYDROXYCHLOROQUINE 200 MG TAB* Take 1 tablet by mouth once d* YASMINE-MAG ORAL Take by mouth. NYSTATIN 100,000 UNIT/GRAM TO* Apply 1 application to affect* ESCITALOPRAM 20 MG TABLET Take 1 tablet by mouth once d* COMPOUNDED PRESCRIPTION Morphine 15 mg per pump fille* LACTOBACILLUS ACIDOPHILUS 10 * Take 2 tablets by mouth daily* VITAMIN B COMPLEX TABLET Take 1 tablet by mouth once d* COMPOUNDED PRESCRIPTION Decrease BiPAP settings to 11* MISCELLANEOUS MEDICAL SUPPLY * CUSTOM JOBST KNEE HI KIRSTY* KETOCONAZOLE 2 % TOPICAL CREAM Apply 1 application to affect* OMEGA-3 FATTY ACIDS-VITAMIN E* Take 1 capsule by mouth three* Problem List As Of Date 11/29/2018 Noted Resolved OTHER LUNG DISEASE NEC [J98.4] Asthma [J45.909] OTHER UNSPEC SLEEP APNEA [G47.30] Dysmetabolic syndrome X [E88.81] 09/11/2011 Fibromyalgia [M79.7] Embolism and thrombosis (HCC) [I74.9] INVALID FOR*05/05/2018 GOITER NOS [E04.9] REFLUX ESOPHAGITIS [K21.0] NAUSEA ALONE [R11.0] ACUTE GASTRITIS W/O HEMORRHAGE [K29.00] INVALID FOR* CONSTIPATION NOS [K59.00] INVALID FOR* More... 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 Obstructive Sleep Apnea [G47.33] INVALID FOR* More... Hypothyroidism [E03.9] INVALID FOR* Exostosis of unspecified site [M89.8X9] INVALID FOR*11/27/2017 Other hammer toe (acquired) [M20.40] INVALID FOR*11/27/2017 Hx of hysterectomy [Z90.710] INVALID FOR* More... Allergic rhinitis [J30.9] More... 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] INVALID FOR* Environmental allergies [Z91.09] INVALID FOR*11/27/2017 Morbid obesity due to excess calories (HCC) [E6* Chronic kidney disease, stage III (moderate) [N*INVALID FOR*11/27/2017 Essential hypertension [I10] INVALID FOR* Nephrolithiasis [N20.0] INVALID FOR* Vitamin D deficiency [E55.9] INVALID FOR* Rheumatoid arthritis (HCC) [M06.9] INVALID FOR* Bipolar disorder, unspecified [F31.9] INVALID FOR* Alopecia, unspecified [L65.9] INVALID FOR*11/27/2017 Personal history of pulmonary embolism [Z86.711]INVALID FOR* Irritable bowel syndrome [K58.9] INVALID FOR* Neuropathy [G62.9] INVALID FOR* Incisional hernia [K43.2] INVALID FOR* Polycythemia, 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 Type 2 DM with CKD stage 3 and hypertension (HC*INVALID FOR* Polypharmacy [Z79.899] INVALID FOR* Noncompliance with treatment [Z91.19] INVALID FOR* CKD (chronic kidney disease) stage 4, GFR 15-29*INVALID FOR*08/26/2017 Nonallergic rhinitis [J31.0] INVALID FOR* History of deep vein thrombosis [Z86.718] INVALID FOR* Hypoxemia [R09.02] INVALID FOR* More... Acute kidney injury superimposed on chronic kid*INVALID FOR* Metabolic encephalopathy [G93.41] INVALID FOR* Hyperkalemia [E87.5] INVALID FOR* Abdominal pannus [E65] INVALID FOR* Anxiety [F41.9] Prescriptions ordered this encounter Disp Refills Start End MOMETASONE-FORMOTEROL HFA 200 MCG-5 * 1 In* 5 11/29/2018 Class: Print RX Route: INHALATION Sig: Inhale 1 Puff as instructed twice daily. MOMETASONE-FORMOTEROL HFA 200 MCG-5 * 1 In* 0 11/29/2018 Class: Print RX Route: INHALATION Sig: Inhale 1 Puff as instructed twice daily. Medications Discontinued During This Encounter budesonide-formoterol (SYMBICORT) 16* 1 In* 12 10/29/2016 11/29/2018 Route: INHALATION Sig: Inhale 2 Puffs as instructed twice daily. Patient not taking: Reported on 10/22/2018 Disc: Cost of medication fluticasone-vilanterol (BREO ELLIPTA* 1 Ea* 11 01/22/2018 11/29/2018 Route: INHALATION Sig: Inhale 1 Inhalation as instructed once daily. Disc: Cost of medication Encounter Status:Closed by LEANA HICKMAN on 12/03/18 OBSOLETE Observed: 11/27/2018 Status: COMPLETED Source: [place] 12:00 AM [facility] REPOSITORY Refill (INTMWS) DEBORA MEYERS ([id number]) 1965 F Date Time Provider Department 11/27/18 LIVIA SCOTT INTMWS During your visit today, we recorded the following information about you: Tracee Cevallos Psr 11/27/2018 10:06 AM Signed Patient has been identified by name and date of : Yes Pending Prescriptions Disp Refills LISINOPRIL 10 MG TABLET 30 tablet 11 Sig: Take 1 tablet by mouth once daily. SHENG: No RX INSTRUCTIONS: Patient aware RX will be sent to pharmacy. No need to notify patient. Tracee Cevallos Psr Sarah Jin LPN 11/29/2018 11:12 AM Signed this has refills from 10/14/18. Pharmacy notified and pt just go this refilled on 11/27/18. Allergies As of Date: 11/27/2018 Noted Allergy Reaction environmental [Other] 07/14/2005 2 - Rash 3 - Cough VITAMIN K 07/14/2005 7 - Swelling CHOLESTYRAMINE 03/31/2013 14 - Other: See Comments Comments: constipation MACROBID (NITROFURANTOIN MONOHYD/*12/06/2010 2 - Rash Comments: states that broke out all over with rash last time was given this in September 2010 peroxide [Other] 07/14/2005 5 - Intolerance SULFA (SULFONAMIDE ANTIBIOTICS) 02/05/2013 2 - Rash Date Reviewed: 11/18/2018 Reviewed by: Nasim Beckett - Fully Assessed Reason for Visit: Refill Request [94] Visit Diagnosis:Essential hypertension [I10] Prescriptions as of 11/27/2018 Sig: CLONAZEPAM 1 MG TABLET Take 0.5-1 tablets by mouth d* HYDROCHLOROTHIAZIDE 12.5 MG C* Take 1 capsule by mouth once * QUETIAPINE 25 MG TABLET Take 1-2 tablets by mouth twi* DEXTROMETHORPHAN POLISTIREX E* Take 10 mL by mouth twice trista* NYSTATIN 100,000 UNIT/ML ORAL* 1 tsp swish and swallow until* SUCRALFATE 100 MG/ML ORAL BART* Take 10 mL by mouth four time* LISINOPRIL 10 MG TABLET Take 1 tablet by mouth once d* INSULIN GLARGINE (U-100) 100 * Inject 12 Units subcutaneousl* CHLORHEXIDINE GLUCONATE 0.12 * Take 15 mL by mouth twice trista* TOPIRAMATE 100 MG TABLET Take 100 mg by mouth twice da* TIZANIDINE 2 MG TABLET Take 1 tablet by mouth every * ROPINIROLE 1 MG TABLET Take 1 tablet by mouth four t* OMEPRAZOLE 40 MG CAPSULE,LALITO* Take 1 capsule by mouth once * ENOXAPARIN 40 MG/0.4 ML SUBCU* 40 mg subcutaneous every 12 h* Patient not taking: Reported on 11/15/2018 ALPHA LIPOIC ACID 600 MG CAPS* Take 1 capsule by mouth twice* PEN NEEDLE, DIABETIC 31 GAUGE* Use with insulin pens 5 times* TOPIRAMATE 50 MG TABLET Take 1 tablet by mouth three * MELATONIN 1 MG TABLET Take 1 tablet by mouth daily * INSULIN LISPRO (U-100) 100 UN* Inject 10 Units subcutaneousl* LORATADINE 10 MG TABLET Take 1 tablet by mouth once d* VERAPAMIL 40 MG TABLET Take 1 tablet by mouth three * ATORVASTATIN 10 MG TABLET Take 1 tablet by mouth daily * DICYCLOMINE 10 MG CAPSULE Take 1 capsule by mouth four * ONDANSETRON HCL 4 MG TABLET Take 1 tablet by mouth every * LEVOTHYROXINE 100 MCG TABLET Take 1 tablet by mouth daily * BLOOD SUGAR DIAGNOSTIC STRIPS Test blood sugar 4 x daily. D* ADALIMUMAB 40 MG/0.8 ML SUBCU* Inject 40 mg subcutaneously o* FLUTICASONE 50 MCG/ACTUATION * Use 1-2 Sprays in each nostri* CETIRIZINE 10 MG CAPSULE Take by mouth daily at bedtim* FLUTICASONE 200 MCG-VILANTERO* Inhale 1 Inhalation as instru* ALBUTEROL SULFATE HFA 90 MCG/* Inhale 2 Puffs as instructed * TRIAMCINOLONE ACETONIDE 0.1 %* Apply 1 application to affect* PEN NEEDLE, DIABETIC 31 GAUGE* Inject 1 Each subcutaneously * CHOLECALCIFEROL (VITAMIN D3) * Take 1 tablet by mouth once d* WARFARIN 7.5 MG TABLET Take 1 tablet by mouth daily * WARFARIN 5 MG TABLET Take 1 tablet by mouth once d* MULTIVITAMIN WITH MINERALS TA* Take 1 tablet by mouth three * VITAMIN E 400 UNIT CAPSULE Take 2 capsules by mouth once* Patient not taking: Reported on 11/15/2018 COMPOUNDED PRESCRIPTION SHOWER CHAIR WITH BACK D* COMPOUNDED PRESCRIPTION SUCTION STYLE GRAB BAR FOR SH* ALBUTEROL SULFATE HFA 90 MCG/* Inhale 2 Puffs as instructed * COUMADIN 1 MG TABLET take 5mg daily except for Sun* ALBUTEROL SULFATE 2.5 MG/3 ML* Use 3 mL via nebulizer every * BLOOD PRESSURE TEST KIT-WRIST* Use to check blood pressure o* HYDROXYCHLOROQUINE 200 MG TAB* Take 1 tablet by mouth once d* BUDESONIDE-FORMOTEROL HFA 160* Inhale 2 Puffs as instructed * Patient not taking: Reported on 10/22/2018 YASMINE-MAG ORAL Take by mouth. NYSTATIN 100,000 UNIT/GRAM TO* Apply 1 application to affect* ESCITALOPRAM 20 MG TABLET Take 1 tablet by mouth once d* COMPOUNDED PRESCRIPTION Morphine 15 mg per pump fille* LACTOBACILLUS ACIDOPHILUS 10 * Take 2 tablets by mouth daily* VITAMIN B COMPLEX TABLET Take 1 tablet by mouth once d* COMPOUNDED PRESCRIPTION Decrease BiPAP settings to 11* MISCELLANEOUS MEDICAL SUPPLY * CUSTOM JOBST KNEE HI KIRSTY* KETOCONAZOLE 2 % TOPICAL CREAM Apply 1 application to affect* OMEGA-3 FATTY ACIDS-VITAMIN E* Take 1 capsule by mouth three* Problem List As Of Date 11/27/2018 Noted Resolved OTHER LUNG DISEASE NEC [J98.4] Asthma [J45.909] OTHER UNSPEC SLEEP APNEA [G47.30] Dysmetabolic syndrome X [E88.81] 09/11/2011 Fibromyalgia [M79.7] Embolism and thrombosis (HCC) [I74.9] INVALID FOR*05/05/2018 GOITER NOS [E04.9] REFLUX ESOPHAGITIS [K21.0] NAUSEA ALONE [R11.0] ACUTE GASTRITIS W/O HEMORRHAGE [K29.00] INVALID FOR* CONSTIPATION NOS [K59.00] INVALID FOR* More... 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 Obstructive Sleep Apnea [G47.33] INVALID FOR* More... Hypothyroidism [E03.9] INVALID FOR* Exostosis of unspecified site [M89.8X9] INVALID FOR*11/27/2017 Other hammer toe (acquired) [M20.40] INVALID FOR*11/27/2017 Hx of hysterectomy [Z90.710] INVALID FOR* More... Allergic rhinitis [J30.9] More... 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] INVALID FOR* Environmental allergies [Z91.09] INVALID FOR*11/27/2017 Morbid obesity due to excess calories (HCC) [E6* Chronic kidney disease, stage III (moderate) [N*INVALID FOR*11/27/2017 Essential hypertension [I10] INVALID FOR* Nephrolithiasis [N20.0] INVALID FOR* Vitamin D deficiency [E55.9] INVALID FOR* Rheumatoid arthritis (HCC) [M06.9] INVALID FOR* Bipolar disorder, unspecified [F31.9] INVALID FOR* Alopecia, unspecified [L65.9] INVALID FOR*11/27/2017 Personal history of pulmonary embolism [Z86.711]INVALID FOR* Irritable bowel syndrome [K58.9] INVALID FOR* Neuropathy [G62.9] INVALID FOR* Incisional hernia [K43.2] INVALID FOR* Polycythemia, 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 Type 2 DM with CKD stage 3 and hypertension (HC*INVALID FOR* Polypharmacy [Z79.899] INVALID FOR* Noncompliance with treatment [Z91.19] INVALID FOR* CKD (chronic kidney disease) stage 4, GFR 15-29*INVALID FOR*08/26/2017 Nonallergic rhinitis [J31.0] INVALID FOR* History of deep vein thrombosis [Z86.718] INVALID FOR* Hypoxemia [R09.02] INVALID FOR* More... Acute kidney injury superimposed on chronic kid*INVALID FOR* Metabolic encephalopathy [G93.41] INVALID FOR* Hyperkalemia [E87.5] INVALID FOR* Abdominal pannus [E65] INVALID FOR* Anxiety [F41.9] Encounter Status:Closed by SARAH JIN LPN on 11/29/18 RENAL PROFILE Collected: 11/20/2018 Status: F Source: [place] 1:59 PM [facility] REPOSITORY TYPE CODE TESTS RESULT OUT OF RANGE REFERENCE UNITS LAB L501.0100 74-106 mg/dL High GLU 135 Result Comment: Fasting Glucose result greater than or equal to 126 mg/dL suggests DIABETES MELLITUS per A.D.A. criteria. Please note revised GLUCOSE reference range effective 2017. LAB L501.1000 7-18 mg/dL High BUN 26 LAB L501.1100 0.55-1.02 mg/dL High CREAT,SERUM 1.27 Result Comment: The validity of the calculated GFR AND GFRAA in patients over 70 years has not been determined. Clinical correlation is essential. LAB L501.1110 >60 mL/min Low EST GFR 47 Result Comment: Non- GFR Calc LAB L501.1115 >60 mL/min Low EST GFR - AA 57 Result Comment: GFR Calc LAB L501.1300 10-20 RATIO High BUN/CRE 20.5 LAB L501.1800 3.2-5.0 g/dL Normal ALB 3.7 LAB L501.2200 8.5-10.1 mg/dL CA Normal 9.1 LAB L501.2300 2.5-4.9 mg/dL Normal PHOS 3.0 LAB L501.5300 136-145 mmol/L NA Normal 142 LAB L501.5600 3.5-5.1 mmol/L K Normal 3.9 LAB L501.5900 98-107 mmol/L High CL 111 LAB L501.6100 21.0-32.0 mmol/L Normal CO2 22.0 Performed By: #### L500.3600 #### [facility] [address] [place], [address] PROGRESS Observed: 11/18/2018 Status: COMPLETED Source: [place] 12:47 PM [facility] REPOSITORY HNO ID: [id number] Author: Sheeba King RN Service: (none) Author Type: (none) Type: Progress Notes Filed: 11/18/2018 12:47 PM Note Text: see office note PROGRESS Observed: 11/18/2018 Status: COMPLETED Source: [place] 12:39 PM [facility] REPOSITORY HNO ID: [id number] Author: Cristine Car RN Service: (none) Author Type: (none) Type: Progress Notes Filed: 11/18/2018 12:42 PM Note Text: Pt. presented for application of Don-Liana M/L Reaction braces to bilateral knees, with large sleeves. Pt. felt braces were helpful, but declined to keep braces, as she realized that she was unable to apply herself, due to severe low back pain when she attempted to reach across pendulous abdomen. She has no one at home to assist her. PROGRESS Observed: 11/18/2018 Status: COMPLETED Source: [place] 12:03 PM [facility] REPOSITORY HNO ID: [id number] Author: Nasim Beckett Service: (none) Author Type: Physician Type: Progress Notes Filed: 11/18/2018 12:36 PM Note Text: Nasim Beckett MD Department of Orthopaedics Orthopa[facility] [address] [facility] [address] Dept: [phone] Dept November 18, 2018 CHIEF COMPLAINT: left knee pain HPI: Ms. Debora Meyers is a 53 year old female who presents today with problems in both of her knees, left worse than right. She reports having fallen on both of them multiple times and number of years ago.10 out of 10 pain currently in the left knee. Having a difficult time even cleaning her house. She has tried ice as well as some anti-inflammatories. ASSESSMENT: M25.562, G89.29 Chronic pain of left knee (primary encounter diagnosis) M17.0 Primary osteoarthritis of both knees PLAN: she has bilateral knee osteoarthritis, left worse than right. We will try a cortisone injection today and some bracing. She understands that her weight is a major issue and she is trying to pursue medical and even possible surgical attempts at improving this. Furthermore, she has multiple comorbidities which are relatively contraindication to knee replacement. FOLLOW UP INSTRUCTIONS: as needed Ms. Debora Meyers was advised as to contrast therapies and/or to take analgesics/anti-inflammatories as needed and all contraindications were reviewed. OBJECTIVE: Ms. Debora Meyers is a pleasant 53 year old in no apparent distress. Gen:BP 139/96 Pulse 88 Wt 276 lb 9.6 oz (125.5kg) nl development, morbidly obese, no deformities ENT: Normocephalic, normal hearing, moist mucosa CV: Pulses:DP/PT= 2+ and symmetric, capillary refill < 2 secs, no peripheral edema/varicosities Skin: no rash, bruising or lesions. Good turgor. Psych: cooperative and appropriate, alert and oriented x 3, good mood and affect. Musculoskeletal: Patient walks with antalgia on the left, normal station. Hip motion without pain. Knee with mild effusion. Patella tracks normally. There is no patellar crepitance. No pain along the medial or lateral facets. Range of motion 0?130 degrees. moderate medial, with mild lateral joint line pain on palpation. Ligamentous exam with stable endpoint on varus and valgus stress testing at 0 and 30 degrees at each knee. she does have mild medial joint space widening with valgus stress at both knees. Chloe's examination is negative. Posterior drawer is negative. painful McMurrays, without palpable click. Extremity is warm and well perfused. Sensation is grossly intact to light touch, subjectively. procedure note: The risk, benefits and alternatives of injection and no injection therapy were discussed. The patient consented for an injection. Time out was conducted. The injection site was prepped with a Chlorhexadine swab. The left Superolateral joint was injected with a 25 gauge needle with 1 cc (6 mg) Celestone, 5 cc Marcaine 0.5% . The injection site was then dressed with a bandaid. The patient tolerated the injection well. The patient was instructed to call the office if any adverse local effects occurred or any if any questions or concerns arise. Nasim Beckett MD IMAGING: IMPRESSION: Mild degenerative change Director Of Orthopedics: PSCElisha ? Transcribe Date/Time: Nov 04 2018 ?2:30P Dictated by : BRENDA TORRES MD This examination was interpreted and the report reviewed and electronically signed by: BRENDA TORRES MD on Nov 04 2018 ?2:37PM ?EST Results-Findings * * *Final Report* * * DATE OF EXAM: Nov 04 2018 ?2:23PM ? WOX ? [id number] ?- ?XR KNEE 4V AP/PA BOTH+LAT/RUDI LT ?/ PROCEDURE REASON: Injury of left knee, initial encounter ?? ? * * * * Physician Interpretation * * * * ?HISTORY: Injury, pain left knee TECHNIQUE: Bilateral sunrise and upright AP and tunnel views and lateral view of the left knee COMPARISON: None RESULT: Mild presumably degenerative narrowing of the medial joint space compartment of the left knee. Patellofemoral joint appears intact. Alignment appears intact. No fracture or dislocation. Supporting Subjective Information Below: Past Medical History: PAST MEDICAL HISTORY Diagnosis Date - Allergic rhinitis used to receive allergy shots from Dr. Brown - Alopecia, unspecified 08/29/2012 - Anticoagulated on Coumadin INR goal 3.0 to 4.0 - Anxiety - Asthma - Benign neoplasm of stomach - Bipolar disorder, unspecified 08/29/2012 - Diabetes mellitus type 2, controlled, without complications (HCC) 08/12/2007 In records from treatment after elevated sugars in 2001 during hospital stay; no longer on any meds and sugars have been fine--either normal or just in impaired fasting glucose level - Embolism and thrombosis (HCC) 08/14/2005 - Environmental allergies 01/17/2012 - Exostosis of unspecified site 09/27/2010 - Fibromyalgia - Goiter, unspecified - Hypothyroidism 10/28/2009 - Nausea alone - Obesity - STACY treated with BiPAP [facility] supplier - Other diseases of lung, not elsewhere classified - Other hammer toe (acquired) 09/27/2010 - RA (rheumatoid arthritis) (HCC) - 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 also elevated BMI . RECOMMENDATIONS are 1.weight loss.2. not seen significant sleep apnea however absense or REM sleep sleep apnea may be understimated.Extrinsic factors leading to excessive daytime somnolence such as mood disturbances and or medication effect may be a factor Past Surgical History: PAST SURGICAL HISTORY Procedure Laterality Date - COLONOSCOP W/ OR W/O BRSH SPEC 03-06-13 Colonoscopy - EGD W/O OR W/BRUSH/WASH 02/25/2007 EGD - EGD W/O OR W/BRUSH/WASH 11/03/2011 EGD - PAST SURGICAL HISTORY OF [place] except cervix was left in; complicated with wound infection; [facility] - PAST SURGICAL HISTORY OF fundoplication May 1991 - PAST SURGICAL HISTORY OF right foot surgery on achilles tendon - PAST SURGICAL HISTORY OF 09/16/13 bone spur removed from right foot - PAST SURGICAL HISTORY OF 08/2014 Intrathecal pump implant for chronic back pain ([facility]) - PULMONARY FUNCTION TEST 05/04/05 - REMOVAL ADENOIDS,PRIMARY,<12 Y/O Adenoidectomy - REMOVAL GALLBLADDER 1990 Cholecystectomy - REMOVAL OF TONSILS,<12 Y/O Tonsillectomy - TOTAL ABDOM HYSTERECTOMY 2008 polycystic ovaries - UVULECTOMY EXCISION OF UVULA 2004 Family History: FAMILY HISTORY Problem Relation Age of Onset - Adopted: Yes - None Mother - Alcohol/Drug Father - None Sister BOWEL PROBLEMS Social History:Social History Marital status: Spouse name: Louis Years of education: Number of children: 0 Social History Main Topics Smoking status: Never Smoker Smokeless tobacco: Never Used Comment: Parents briefly smoked in childhood home. Alcohol use: No Drug use: No Sexual activity: Yes Partners with: Male control/protection: Condom Social History Narrative Birds in home. Basement occasionally wet. Medications: Current Outpatient Prescriptions: adalimumab (HUMIRA) 40 mg/0.8 mL injection Inject 40 mg subcutaneously one time only. albuterol (PROVENTIL) 2.5 mg /3 mL (0.083 %) nebulizer solution Use 3 mL via nebulizer every 6 hours as needed. albuterol HFA (PROAIR HFA) 90 mcg/actuation inhaler Inhale 2 Puffs as instructed every 4 hours as needed for Wheezing/Shortness of Breath. albuterol HFA (PROVENTIL HFA, VENTOLIN HFA) 90 mcg/actuation inhaler Inhale 2 Puffs as instructed every 4 hours as needed (for cough, wheezing, chest tightness or shortness of breath. Use with spacer. ). Alpha Lipoic Acid 600 mg cap Take 1 capsule by mouth twice daily. atorvastatin (LIPITOR) 10 mg tablet Take 1 tablet by mouth daily at bedtime. For cholesterol. Blood Pressure Test Kit-Wrist kit Use to check blood pressure once daily as directed DX:I10 blood sugar diagnostic (TRUE METRIX GLUCOSE TEST STRIP) test strip Test blood sugar 4 x daily. Dx: E11.22. Insulin use: Yes CALCIUM CARB/MAGNESIUM OX,CARB (YASMINE-MAG ORAL) Take by mouth. Cetirizine (ZYRTEC) 10 mg cap Take by mouth daily at bedtime. Chlorhexidine Gluconate (PERIDEX) 0.12 % solution Take 15 mL by mouth twice daily. as needed for tooth / mouth pain cholecalciferol (VITAMIN D3) 5,000 unit tab Take 1 tablet by mouth once daily. COMPOUNDED PRESCRIPTION Decrease BiPAP settings to 11/5 cmH2O. Diagnosis G47.33 COMPOUNDED PRESCRIPTION Morphine 15 mg per pump filled every [address] Wetzel COMPOUNDED PRESCRIPTION SHOWER CHAIR WITH BACK DX M06.9 I74.9 COMPOUNDED PRESCRIPTION SUCTION STYLE GRAB BAR FOR SHOWER WALL INSTALLATION DX M 06.9 I 74.9 COUMADIN 1 mg tablet take 5mg daily except for Sunday, take 7.5 mg on Sunday or as directedDO NOT SUBSITUTE WITH GENERIC. dextromethorphan (DELSYM) 30 mg/5 mL liquid Take 10 mL by mouth twice daily. for cough dicyclomine (BENTYL) 10 mg capsule Take 1 capsule by mouth four times daily as needed (cramping pains and urgency with bowels). escitalopram oxalate (LEXAPRO) 20 mg tablet Take 1 tablet by mouth once daily. fluticasone (FLONASE) 50 mcg/actuation nasal spray Use 1-2 Sprays in each nostril once daily. fluticasone-vilanterol (BREO ELLIPTA) 200-25 mcg/dose inhaler Inhale 1 Inhalation as instructed once daily. Hydrochlorothiazide 12.5 mg capsule Take 1 capsule by mouth once daily as needed. hydroxychloroquine (PLAQUENIL) 200 mg tablet Take 1 tablet by mouth once daily. insulin glargine (LANTUS SOLOSTAR U-100 INSULIN) 100 unit/mL (3 mL) inpn Inject 12 Units subcutaneously twice daily. insulin lispro (HUMALOG KWIKPEN INSULIN) 100 unit/mL inpn Inject 10 Units subcutaneously w MEALS. Three times daily insulin needles, DISPOSABLE, (BD INSULIN PEN NEEDLE UF) 31 gauge x 5/16 ndle Use with insulin pens 5 times daily, or as directed, Dx: E11.22 insulin needles, DISPOSABLE, (UNIFINE PENTIPS) 31 gauge x 5/16 ndle Inject 1 Each subcutaneously four times daily. ketoconazole (NIZORAL) 2 % cream Apply 1 application to affected area once daily. as needed to corners of lips and other rash as directed Lactobacillus acidophilus (PROBIOTIC) 10 billion cell cap Take 2 tablets by mouth daily at bedtime. levothyroxine (LEVOXYL) 100 mcg tablet Take 1 tablet by mouth daily before breakfast. lisinopril (PRINIVIL) 10 mg tablet Take 1 tablet by mouth once daily. loratadine (CLARITIN) 10 mg tablet Take 1 tablet by mouth once daily. melatonin 1 mg tablet Take 1 tablet by mouth daily at bedtime. [facility] CUSTOM JOBST KNEE HI COMPRESSION STOCKING 30-40MM/HG. Dispense 2 pair Diagnosis:(I87.2) Venous insufficiency of both lower extremities; (R60.9) Edema multivitamin with minerals (HAIR,SKIN AND NAILS) tablet Take 1 tablet by mouth three times daily. nystatin (MYCOSTATIN) 100,000 unit/mL suspension 1 tsp swish and swallow until gone, 4 times daily nystatin (MYCOSTATIN) cream Apply 1 application to affected area twice daily. As needed [place]-3 Fatty Acids-Vitamin E (FISH OIL) 1,000 mg cap Take 1 capsule by mouth three times daily. Omeprazole 40 mg capsule Take 1 capsule by mouth once daily. ondansetron (ZOFRAN) 4 mg tablet Take 1 tablet by mouth every 8 hours as needed for Nausea/Vomiting. QUEtiapine (SEROQUEL) 25 mg tablet Take 1-2 tablets by mouth twice daily. rOPINIRole (REQUIP) 1 mg tablet Take 1 tablet by mouth four times daily. As directed sucralfate (CARAFATE) 100 mg/mL suspension Take 10 mL by mouth four times daily as needed. As directed (usually before meals and bedtime as needed) tiZANidine (ZANAFLEX) 2 mg tablet Take 1 tablet by mouth every 8 hours as needed (muscle spasms, neck pain and headache). May make drowsy topiramate (TOPAMAX) 100 mg tablet Take 100 mg by mouth twice daily. topiramate (TOPAMAX) 50 mg tablet Take 1 tablet by mouth three times daily. for headache triamcinolone acetonide (KENALOG) 0.1 % cream Apply 1 application to affected area three times daily as needed (itchy rash/psoriasis on hands). Apply sparingly verapamil (CALAN, ISOPTIN) 40 mg tablet Take 1 tablet by mouth three times daily. vitamin b complex (B COMPLETE) tab Take 1 tablet by mouth once daily. warfarin (COUMADIN) 5 mg tablet Take 1 tablet by mouth once daily. SHENG - 7.5mg , sun and 5mg all other days or as directed warfarin (COUMADIN) 7.5 mg tablet Take 1 tablet by mouth daily as directed. alpha tocopheryl acetate (VITAMIN E) 400 unit capsule Take 2 capsules by mouth once daily. (Patient not taking: Reported on 11/15/2018 ) budesonide-formoterol (SYMBICORT) 160-4.5 mcg/actuation inhaler Inhale 2 Puffs as instructed twice daily. (Patient not taking: Reported on 10/22/2018 ) clonazePAM (KLONOPIN) 1 mg tablet Take 0.5-1 tablets by mouth daily at bedtime for 90 days. enoxaparin (LOVENOX) 40 mg/0.4 mL syrg 40 mg subcutaneous every 12 hours starting August 12 in the morning; take only the morning dose August 14; do not take August 15 (day of procedure); resume 40 mg every 12 hours starting evening of August 16 ; continue until INR therapeutic (Patient not taking: Reported on 11/15/2018 ) No current facility-administered medications for this visit. Allergies: Environmental [Other]; Vitamin K; Cholestyramine; Macrobid [Nitrofurantoin Monohyd/M-Cryst]; Peroxide [Other]; Sulfa (Sulfonamide Antibiotics) ROS: General (negative for fatigue, malaise, weight loss/gain) HEENT (negative for headache, earache, recent vision changes, sinus pain, sore throat) Respiratory (no recent shortness of breath, hemoptysis) CV (negative for chest tightness, palpitations) Musculoskeletal (see HPI) Psych (no depression, anxiety) REFERRING PHYSICIAN: Ms. Debora Meyers was referred to me for consultation by the following physician. This consultation note will be sent to the following physician by either mail or electronic medical record. Livia Scott MD [address] [facility] [id number] Livia Scott MD [address] [facility] [id number] This note was partially generated using [employer] voice recognition system, and there may be some incorrect words, spellings, and punctuation that were not noted in checking the note before saving. Nasim Beckett MD PROGRESS Observed: 11/18/2018 Status: COMPLETED Source: [place] 10:58 AM [facility] REPOSITORY HNO ID: [id number] Author: Chantal De Souza RN Service: (none) Author Type: (none) Type: Progress Notes Filed: 11/18/2018 12:36 PM Note Text: AMB ROOMING INTAKE FLOWSHEET DATA Risk Screening Do you have concerns about personal safety or safety in the home?: No Pain Pain Score: 10/10 Pain Location: Knee-Left Description: Sharp, Aching Duration Amount of Time: 1 Duration Units: Months Frequency: Continuous Intervention: Medication, Cold, Relaxation New patient referred by Karli Regalado. She c/o L knee pain for the past month. She states she has fallen a number of times and thinks that is what caused her pain. Last fall was 2 weeks ago. Pain is constant. Any type of movement aggravates her knee. She has tried ice, NSAIDS/tylenol and rest but states nothing helps. She had an XR on 11/04/18. CNOV Observed: 11/18/2018 Status: COMPLETED Source: [place] 10:40 AM [facility] REPOSITORY Office Visit (ORTHWS) DEBORA MEYERS ([id number]) 1965 F Date Time Provider Department 11/18/18 10:40 AM NASIM BECKETT During your visit today, we recorded the following information about you: Pulse Blood pressure Weight 88/minute 139/96 125.5 kg Chantal De Souza RN 11/18/2018 12:36 PM Signed AMB ROOMING INTAKE FLOWSHEET DATA Risk Screening Do you have concerns about personal safety or safety in the home?: No Pain Pain Score: 10/10 Pain Location: Knee-Left Description: Sharp, Aching Duration Amount of Time: 1 Duration Units: Months Frequency: Continuous Intervention: Medication, Cold, Relaxation New patient referred by Karli Regalado. She c/o L knee pain for the past month. She states she has fallen a number of times and thinks that is what caused her pain. Last fall was 2 weeks ago. Pain is constant. Any type of movement aggravates her knee. She has tried ice, NSAIDS/tylenol and rest but states nothing helps. She had an XR on 11/04/18. Nasim Beckett MD 11/18/2018 12:36 PM Signed Nasim Beckett MD Department of Orthopaedics Orthopaedics [address] [place] [id number] Dept: [phone] Dept November 18, 2018 CHIEF COMPLAINT: left knee pain HPI: Ms. Debora Meyers is a 53 year old female who presents today with problems in both of her knees, left worse than right. She reports having fallen on both of them multiple times and number of years ago.10 out of 10 pain currently in the left knee. Having a difficult time even cleaning her house. She has tried ice as well as some anti-inflammatories. ASSESSMENT: M25.562, G89.29 Chronic pain of left knee (primary encounter diagnosis) M17.0 Primary osteoarthritis of both knees PLAN: she has bilateral knee osteoarthritis, left worse than right. We will try a cortisone injection today and some bracing. She understands that her weight is a major issue and she is trying to pursue medical and even possible surgical attempts at improving this. Furthermore, she has multiple comorbidities which are relatively contraindication to knee replacement. FOLLOW UP INSTRUCTIONS: as needed Ms. Debora Meyers was advised as to contrast therapies and/or to take analgesics/anti-inflammatories as needed and all contraindications were reviewed. OBJECTIVE: Ms. Debora Meyers is a pleasant 53 year old in no apparent distress. Gen:BP 139/96 Pulse 88 Wt 276 lb 9.6 oz (125.5kg) nl development, morbidly obese, no deformities ENT: Normocephalic, normal hearing, moist mucosa CV: Pulses:DP/PT= 2+ and symmetric, capillary refill < 2 secs, no peripheral edema/varicosities Skin: no rash, bruising or lesions. Good turgor. Psych: cooperative and appropriate, alert and oriented x 3, good mood and affect. Musculoskeletal: Patient walks with antalgia on the left, normal station. Hip motion without pain. Knee with mild effusion. Patella tracks normally. There is no patellar crepitance. No pain along the medial or lateral facets. Range of motion 0?130 degrees. moderate medial, with mild lateral joint line pain on palpation. Ligamentous exam with stable endpoint on varus and valgus stress testing at 0 and 30 degrees at each knee. she does have mild medial joint space widening with valgus stress at both knees. Chloe's examination is negative. Posterior drawer is negative. painful McMurrays, without palpable click. Extremity is warm and well perfused. Sensation is grossly intact to light touch, subjectively. procedure note: The risk, benefits and alternatives of injection and no injection therapy were discussed. The patient consented for an injection. Time out was conducted. The injection site was prepped with a Chlorhexadine swab. The left Superolateral joint was injected with a 25 gauge needle with 1 cc (6 mg) Celestone, 5 cc Marcaine 0.5% . The injection site was then dressed with a bandaid. The patient tolerated the injection well. The patient was instructed to call the office if any adverse local effects occurred or any if any questions or concerns arise. Nasim Beckett MD IMAGING: IMPRESSION: Mild degenerative change Director Of Orthopedics: ALINE ? Transcribe Date/Time: Nov 04 2018 ?2:30P Dictated by : BRENDA TORRES MD This examination was interpreted and the report reviewed and electronically signed by: BRENDA TORRES MD on Nov 04 2018 ?2:37PM ?EST Results-Findings * * *Final Report* * * DATE OF EXAM: Nov 04 2018 ?2:23PM ? WOX ? [id number] ?- ?XR KNEE 4V AP/PA BOTH+LAT/RUDI LT ?/ PROCEDURE REASON: Injury of left knee, initial encounter ?? ? * * * * Physician Interpretation * * * * ?HISTORY: Injury, pain left knee TECHNIQUE: Bilateral sunrise and upright AP and tunnel views and lateral view of the left knee COMPARISON: None RESULT: Mild presumably degenerative narrowing of the medial joint space compartment of the left knee. Patellofemoral joint appears intact. Alignment appears intact. No fracture or dislocation. Supporting Subjective Information Below: Past Medical History: PAST MEDICAL HISTORY Diagnosis Date - Allergic rhinitis used to receive allergy shots from Dr. Brown - Alopecia, unspecified 08/29/2012 - Anticoagulated on Coumadin INR goal 3.0 to 4.0 - Anxiety - Asthma - Benign neoplasm of stomach - Bipolar disorder, unspecified 08/29/2012 - Diabetes mellitus type 2, controlled, without complications (HCC) 08/12/2007 In records from treatment after elevated sugars in 2001 during hospital stay; no longer on any meds and sugars have been fine--either normal or just in impaired fasting glucose level - Embolism and thrombosis (HCC) 08/14/2005 - Environmental allergies 01/17/2012 - Exostosis of unspecified site 09/27/2010 - Fibromyalgia - Goiter, unspecified - Hypothyroidism 10/28/2009 - Nausea alone - Obesity - STACY treated with BiPAP [facility] supplier - Other diseases of lung, not elsewhere classified - Other hammer toe (acquired) 09/27/2010 - RA (rheumatoid arthritis) (HCC) - 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 also elevated BMI . RECOMMENDATIONS are 1.weight loss.2. not seen significant sleep apnea however absense or REM sleep sleep apnea may be understimated.Extrinsic factors leading to excessive daytime somnolence such as mood disturbances and or medication effect may be a factor Past Surgical History: PAST SURGICAL HISTORY Procedure Laterality Date - COLONOSCOP W/ OR W/O BRSH SPEC 03-06-13 Colonoscopy - EGD W/O OR W/BRUSH/WASH 02/25/2007 EGD - EGD W/O OR W/BRUSH/WASH 11/03/2011 EGD - PAST SURGICAL HISTORY OF [place] except cervix was left in; complicated with wound infection; [facility] - PAST SURGICAL HISTORY OF fundoplication May 1991 - PAST SURGICAL HISTORY OF right foot surgery on achilles tendon - PAST SURGICAL HISTORY OF 09/16/13 bone spur removed from right foot - PAST SURGICAL HISTORY OF 08/2014 Intrathecal pump implant for chronic back pain ([facility]) - PULMONARY FUNCTION TEST 05/04/05 - REMOVAL ADENOIDS,PRIMARY,<12 Y/O Adenoidectomy - REMOVAL GALLBLADDER 1990 Cholecystectomy - REMOVAL OF TONSILS,<12 Y/O Tonsillectomy - TOTAL ABDOM HYSTERECTOMY 2008 polycystic ovaries - UVULECTOMY EXCISION OF UVULA 2004 Family History: FAMILY HISTORY Problem Relation Age of Onset - Adopted: Yes - None Mother - Alcohol/Drug Father - None Sister BOWEL PROBLEMS Social History:Social History Marital status: Spouse name: Louis Years of education: Number of children: 0 Social History Main Topics Smoking status: Never Smoker Smokeless tobacco: Never Used Comment: Parents briefly smoked in childhood home. Alcohol use: No Drug use: No Sexual activity: Yes Partners with: Male control/protection: Condom Social History Narrative Birds in home. Basement occasionally wet. Medications: Current Outpatient Prescriptions: adalimumab (HUMIRA) 40 mg/0.8 mL injection Inject 40 mg subcutaneously one time only. albuterol (PROVENTIL) 2.5 mg /3 mL (0.083 %) nebulizer solution Use 3 mL via nebulizer every 6 hours as needed. albuterol HFA (PROAIR HFA) 90 mcg/actuation inhaler Inhale 2 Puffs as instructed every 4 hours as needed for Wheezing/Shortness of Breath. albuterol HFA (PROVENTIL HFA, VENTOLIN HFA) 90 mcg/actuation inhaler Inhale 2 Puffs as instructed every 4 hours as needed (for cough, wheezing, chest tightness or shortness of breath. Use with spacer. ). Alpha Lipoic Acid 600 mg cap Take 1 capsule by mouth twice daily. atorvastatin (LIPITOR) 10 mg tablet Take 1 tablet by mouth daily at bedtime. For cholesterol. Blood Pressure Test Kit-Wrist kit Use to check blood pressure once daily as directed DX:I10 blood sugar diagnostic (TRUE METRIX GLUCOSE TEST STRIP) test strip Test blood sugar 4 x daily. Dx: E11.22. Insulin use: Yes CALCIUM CARB/MAGNESIUM OX,CARB (YASMINE-MAG ORAL) Take by mouth. Cetirizine (ZYRTEC) 10 mg cap Take by mouth daily at bedtime. Chlorhexidine Gluconate (PERIDEX) 0.12 % solution Take 15 mL by mouth twice daily. as needed for tooth / mouth pain cholecalciferol (VITAMIN D3) 5,000 unit tab Take 1 tablet by mouth once daily. COMPOUNDED PRESCRIPTION Decrease BiPAP settings to 11/5 cmH2O. Diagnosis G47.33 COMPOUNDED PRESCRIPTION Morphine 15 mg per pump filled every [address] Wetzel COMPOUNDED PRESCRIPTION SHOWER CHAIR WITH BACK DX M06.9 I74.9 COMPOUNDED PRESCRIPTION SUCTION STYLE GRAB BAR FOR SHOWER WALL INSTALLATION DX M 06.9 I 74.9 COUMADIN 1 mg tablet take 5mg daily except for Sunday, take 7.5 mg on Sunday or as directedDO NOT SUBSITUTE WITH GENERIC. dextromethorphan (DELSYM) 30 mg/5 mL liquid Take 10 mL by mouth twice daily. for cough dicyclomine (BENTYL) 10 mg capsule Take 1 capsule by mouth four times daily as needed (cramping pains and urgency with bowels). escitalopram oxalate (LEXAPRO) 20 mg tablet Take 1 tablet by mouth once daily. fluticasone (FLONASE) 50 mcg/actuation nasal spray Use 1-2 Sprays in each nostril once daily. fluticasone-vilanterol (BREO ELLIPTA) 200-25 mcg/dose inhaler Inhale 1 Inhalation as instructed once daily. Hydrochlorothiazide 12.5 mg capsule Take 1 capsule by mouth once daily as needed. hydroxychloroquine (PLAQUENIL) 200 mg tablet Take 1 tablet by mouth once daily. insulin glargine (LANTUS SOLOSTAR U-100 INSULIN) 100 unit/mL (3 mL) inpn Inject 12 Units subcutaneously twice daily. insulin lispro (HUMALOG KWIKPEN INSULIN) 100 unit/mL inpn Inject 10 Units subcutaneously w MEALS. Three times daily insulin needles, DISPOSABLE, (BD INSULIN PEN NEEDLE UF) 31 gauge x 5/16 ndle Use with insulin pens 5 times daily, or as directed, Dx: E11.22 insulin needles, DISPOSABLE, (UNIFINE PENTIPS) 31 gauge x 5/16 ndle Inject 1 Each subcutaneously four times daily. ketoconazole (NIZORAL) 2 % cream Apply 1 application to affected area once daily. as needed to corners of lips and other rash as directed Lactobacillus acidophilus (PROBIOTIC) 10 billion cell cap Take 2 tablets by mouth daily at bedtime. levothyroxine (LEVOXYL) 100 mcg tablet Take 1 tablet by mouth daily before breakfast. lisinopril (PRINIVIL) 10 mg tablet Take 1 tablet by mouth once daily. loratadine (CLARITIN) 10 mg tablet Take 1 tablet by mouth once daily. melatonin 1 mg tablet Take 1 tablet by mouth daily at bedtime. [facility] CUSTOM JOBST KNEE HI COMPRESSION STOCKING 30-40MM/HG. Dispense 2 pair Diagnosis:(I87.2) Venous insufficiency of both lower extremities; (R60.9) Edema multivitamin with minerals (HAIR,SKIN AND NAILS) tablet Take 1 tablet by mouth three times daily. nystatin (MYCOSTATIN) 100,000 unit/mL suspension 1 tsp swish and swallow until gone, 4 times daily nystatin (MYCOSTATIN) cream Apply 1 application to affected area twice daily. As needed [place]-3 Fatty Acids-Vitamin E (FISH OIL) 1,000 mg cap Take 1 capsule by mouth three times daily. Omeprazole 40 mg capsule Take 1 capsule by mouth once daily. ondansetron (ZOFRAN) 4 mg tablet Take 1 tablet by mouth every 8 hours as needed for Nausea/Vomiting. QUEtiapine (SEROQUEL) 25 mg tablet Take 1-2 tablets by mouth twice daily. rOPINIRole (REQUIP) 1 mg tablet Take 1 tablet by mouth four times daily. As directed sucralfate (CARAFATE) 100 mg/mL suspension Take 10 mL by mouth four times daily as needed. As directed (usually before meals and bedtime as needed) tiZANidine (ZANAFLEX) 2 mg tablet Take 1 tablet by mouth every 8 hours as needed (muscle spasms, neck pain and headache). May make drowsy topiramate (TOPAMAX) 100 mg tablet Take 100 mg by mouth twice daily. topiramate (TOPAMAX) 50 mg tablet Take 1 tablet by mouth three times daily. for headache triamcinolone acetonide (KENALOG) 0.1 % cream Apply 1 application to affected area three times daily as needed (itchy rash/psoriasis on hands). Apply sparingly verapamil (CALAN, ISOPTIN) 40 mg tablet Take 1 tablet by mouth three times daily. vitamin b complex (B COMPLETE) tab Take 1 tablet by mouth once daily. warfarin (COUMADIN) 5 mg tablet Take 1 tablet by mouth once daily. SHENG - 7.5mg , sun and 5mg all other days or as directed warfarin (COUMADIN) 7.5 mg tablet Take 1 tablet by mouth daily as directed. alpha tocopheryl acetate (VITAMIN E) 400 unit capsule Take 2 capsules by mouth once daily. (Patient not taking: Reported on 11/15/2018 ) budesonide-formoterol (SYMBICORT) 160-4.5 mcg/actuation inhaler Inhale 2 Puffs as instructed twice daily. (Patient not taking: Reported on 10/22/2018 ) clonazePAM (KLONOPIN) 1 mg tablet Take 0.5-1 tablets by mouth daily at bedtime for 90 days. enoxaparin (LOVENOX) 40 mg/0.4 mL syrg 40 mg subcutaneous every 12 hours starting August 12 in the morning; take only the morning dose August 14; do not take August 15 (day of procedure); resume 40 mg every 12 hours starting evening of August 16 ; continue until INR therapeutic (Patient not taking: Reported on 11/15/2018 ) No current facility-administered medications for this visit. Allergies: Environmental [Other]; Vitamin K; Cholestyramine; Macrobid [Nitrofurantoin Monohyd/M-Cryst]; Peroxide [Other]; Sulfa (Sulfonamide Antibiotics) ROS: General (negative for fatigue, malaise, weight loss/gain) HEENT (negative for headache, earache, recent vision changes, sinus pain, sore throat) Respiratory (no recent shortness of breath, hemoptysis) CV (negative for chest tightness, palpitations) Musculoskeletal (see HPI) Psych (no depression, anxiety) REFERRING PHYSICIAN: Ms. Debora Meyers was referred to me for consultation by the following physician. This consultation note will be sent to the following physician by either mail or electronic medical record. Livia Scott MD [address] [facility] [id number] Livia Scott MD [address] [facility] [id number] This note was partially generated using [employer] voice recognition system, and there may be some incorrect words, spellings, and punctuation that were not noted in checking the note before saving. MD Cristine Stewart RN 11/18/2018 12:42 PM Signed Pt. presented for application of Don-Liana M/L Reaction braces to bilateral knees, with large sleeves. Pt. felt braces were helpful, but declined to keep braces, as she realized that she was unable to apply herself, due to severe low back pain when she attempted to reach across pendulous abdomen. She has no one at home to assist her. Referring Provider: LIVIA SCOTT [[id number]] Allergies As of Date: 11/18/2018 Noted Allergy Reaction environmental [Other] 07/14/2005 2 - Rash 3 - Cough VITAMIN K 07/14/2005 7 - Swelling CHOLESTYRAMINE 03/31/2013 14 - Other: See Comments Comments: constipation MACROBID (NITROFURANTOIN MONOHYD/*12/06/2010 2 - Rash Comments: states that broke out all over with rash last time was given this in September 2010 peroxide [Other] 07/14/2005 5 - Intolerance SULFA (SULFONAMIDE ANTIBIOTICS) 02/05/2013 2 - Rash Date Reviewed: 11/18/2018 Reviewed by: Nasim Beckett - Fully Assessed Reason for Visit: New Patient [[id number]] Primary Visit Diagnosis:Chronic pain of left knee [M25.562, G89.29] Other Visit Diagnosis:Primary osteoarthritis of both knees [M17.0] Order(s):[] triamcinolone acetonide 40 mg injection (KENALOG 40)Disp: Rfl: Prescriptions as of 11/18/2018 Sig: ADALIMUMAB 40 MG/0.8 ML SUBCU* Inject 40 mg subcutaneously o* ALBUTEROL SULFATE 2.5 MG/3 ML* Use 3 mL via nebulizer every * ALBUTEROL SULFATE HFA 90 MCG/* Inhale 2 Puffs as instructed * ALBUTEROL SULFATE HFA 90 MCG/* Inhale 2 Puffs as instructed * ALPHA LIPOIC ACID 600 MG CAPS* Take 1 capsule by mouth twice* ATORVASTATIN 10 MG TABLET Take 1 tablet by mouth daily * BLOOD PRESSURE TEST KIT-WRIST* Use to check blood pressure o* BLOOD SUGAR DIAGNOSTIC STRIPS Test blood sugar 4 x daily. D* YASMINE-MAG ORAL Take by mouth. CETIRIZINE 10 MG CAPSULE Take by mouth daily at bedtim* CHLORHEXIDINE GLUCONATE 0.12 * Take 15 mL by mouth twice trista* CHOLECALCIFEROL (VITAMIN D3) * Take 1 tablet by mouth once d* COMPOUNDED PRESCRIPTION Decrease BiPAP settings to 11* COMPOUNDED PRESCRIPTION Morphine 15 mg per pump fille* COMPOUNDED PRESCRIPTION SHOWER CHAIR WITH BACK D* COMPOUNDED PRESCRIPTION SUCTION STYLE GRAB BAR FOR SH* COUMADIN 1 MG TABLET take 5mg daily except for Sun* DEXTROMETHORPHAN POLISTIREX E* Take 10 mL by mouth twice trista* DICYCLOMINE 10 MG CAPSULE Take 1 capsule by mouth four * ESCITALOPRAM 20 MG TABLET Take 1 tablet by mouth once d* FLUTICASONE 50 MCG/ACTUATION * Use 1-2 Sprays in each nostri* FLUTICASONE 200 MCG-VILANTERO* Inhale 1 Inhalation as instru* HYDROCHLOROTHIAZIDE 12.5 MG C* Take 1 capsule by mouth once * HYDROXYCHLOROQUINE 200 MG TAB* Take 1 tablet by mouth once d* INSULIN GLARGINE (U-100) 100 * Inject 12 Units subcutaneousl* INSULIN LISPRO (U-100) 100 UN* Inject 10 Units subcutaneousl* PEN NEEDLE, DIABETIC 31 GAUGE* Use with insulin pens 5 times* PEN NEEDLE, DIABETIC 31 GAUGE* Inject 1 Each subcutaneously * KETOCONAZOLE 2 % TOPICAL CREAM Apply 1 application to affect* LACTOBACILLUS ACIDOPHILUS 10 * Take 2 tablets by mouth daily* LEVOTHYROXINE 100 MCG TABLET Take 1 tablet by mouth daily * LISINOPRIL 10 MG TABLET Take 1 tablet by mouth once d* LORATADINE 10 MG TABLET Take 1 tablet by mouth once d* MELATONIN 1 MG TABLET Take 1 tablet by mouth daily * MISCELLANEOUS MEDICAL SUPPLY * CUSTOM JOBST KNEE HI KIRSTY* MULTIVITAMIN WITH MINERALS TA* Take 1 tablet by mouth three * NYSTATIN 100,000 UNIT/ML ORAL* 1 tsp swish and swallow until* NYSTATIN 100,000 UNIT/GRAM TO* Apply 1 application to affect* OMEGA-3 FATTY ACIDS-VITAMIN E* Take 1 capsule by mouth three* OMEPRAZOLE 40 MG CAPSULE,LALITO* Take 1 capsule by mouth once * ONDANSETRON HCL 4 MG TABLET Take 1 tablet by mouth every * QUETIAPINE 25 MG TABLET Take 1-2 tablets by mouth twi* ROPINIROLE 1 MG TABLET Take 1 tablet by mouth four t* SUCRALFATE 100 MG/ML ORAL BART* Take 10 mL by mouth four time* TIZANIDINE 2 MG TABLET Take 1 tablet by mouth every * TOPIRAMATE 100 MG TABLET Take 100 mg by mouth twice da* TOPIRAMATE 50 MG TABLET Take 1 tablet by mouth three * TRIAMCINOLONE ACETONIDE 0.1 %* Apply 1 application to affect* VERAPAMIL 40 MG TABLET Take 1 tablet by mouth three * VITAMIN B COMPLEX TABLET Take 1 tablet by mouth once d* WARFARIN 5 MG TABLET Take 1 tablet by mouth once d* WARFARIN 7.5 MG TABLET Take 1 tablet by mouth daily * VITAMIN E 400 UNIT CAPSULE Take 2 capsules by mouth once* Patient not taking: Reported on 11/15/2018 BUDESONIDE-FORMOTEROL HFA 160* Inhale 2 Puffs as instructed * Patient not taking: Reported on 10/22/2018 CLONAZEPAM 1 MG TABLET Take 0.5-1 tablets by mouth d* ENOXAPARIN 40 MG/0.4 ML SUBCU* 40 mg subcutaneous every 12 h* Patient not taking: Reported on 11/15/2018 Problem List As Of Date 11/18/2018 Noted Resolved OTHER LUNG DISEASE NEC [J98.4] Asthma [J45.909] OTHER UNSPEC SLEEP APNEA [G47.30] Dysmetabolic syndrome X [E88.81] 09/11/2011 Fibromyalgia [M79.7] Embolism and thrombosis (HCC) [I74.9] INVALID FOR*05/05/2018 GOITER NOS [E04.9] REFLUX ESOPHAGITIS [K21.0] NAUSEA ALONE [R11.0] ACUTE GASTRITIS W/O HEMORRHAGE [K29.00] INVALID FOR* CONSTIPATION NOS [K59.00] INVALID FOR* More... 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 Obstructive Sleep Apnea [G47.33] INVALID FOR* More... Hypothyroidism [E03.9] INVALID FOR* Exostosis of unspecified site [M89.8X9] INVALID FOR*11/27/2017 Other hammer toe (acquired) [M20.40] INVALID FOR*11/27/2017 Hx of hysterectomy [Z90.710] INVALID FOR* More... Allergic rhinitis [J30.9] More... 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] INVALID FOR* Environmental allergies [Z91.09] INVALID FOR*11/27/2017 Morbid obesity due to excess calories (HCC) [E6* Chronic kidney disease, stage III (moderate) [N*INVALID FOR*11/27/2017 Essential hypertension [I10] INVALID FOR* Nephrolithiasis [N20.0] INVALID FOR* Vitamin D deficiency [E55.9] INVALID FOR* Rheumatoid arthritis (HCC) [M06.9] INVALID FOR* Bipolar disorder, unspecified [F31.9] INVALID FOR* Alopecia, unspecified [L65.9] INVALID FOR*11/27/2017 Personal history of pulmonary embolism [Z86.711]INVALID FOR* Irritable bowel syndrome [K58.9] INVALID FOR* Neuropathy [G62.9] INVALID FOR* Incisional hernia [K43.2] INVALID FOR* Polycythemia, 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 Type 2 DM with CKD stage 3 and hypertension (HC*INVALID FOR* Polypharmacy [Z79.899] INVALID FOR* Noncompliance with treatment [Z91.19] INVALID FOR* CKD (chronic kidney disease) stage 4, GFR 15-29*INVALID FOR*08/26/2017 Nonallergic rhinitis [J31.0] INVALID FOR* History of deep vein thrombosis [Z86.718] INVALID FOR* Hypoxemia [R09.02] INVALID FOR* More... Acute kidney injury superimposed on chronic kid*INVALID FOR* Metabolic encephalopathy [G93.41] INVALID FOR* Hyperkalemia [E87.5] INVALID FOR* Abdominal pannus [E65] INVALID FOR* Anxiety [F41.9] Prescriptions ordered this encounter Disp Refills Start End TRIAMCINOLONE ACETONIDE 40 MG/ML BART* 11/18/2018 11/18/2018 Route: [facility] Encounter Status:Closed by NASIM BECKETT MD on 11/18/18 PROGRESS Observed: 11/15/2018 Status: COMPLETED Source: [place] 5:54 PM [facility] REPOSITORY HNO ID: [id number] Author: Livia Scott Service: (none) Author Type: Physician Type: Progress Notes Filed: 11/15/2018 7:16 PM Note Text: Patient presents with: Recheck: Follow up SUBJECTIVE: Debora Meyers is a 53 year old year old lady here today for follow up appointment for review of medical conditions. Cellulitis of pannus is better but still red under pannus. Gained weight with stressors. Will try Mucinex for cold symptoms. Fevers still since Chirstmas but sometimes does go away. Still seeing Dr. Caraballo but not till a couple weeks from now. Will see counselor next week. PAST MEDICAL HISTORY Diagnosis Date - Allergic rhinitis used to receive allergy shots from Dr. Brown - Alopecia, unspecified 08/29/2012 - Anticoagulated on Coumadin INR goal 3.0 to 4.0 - Anxiety - Asthma - Benign neoplasm of stomach - Bipolar disorder, unspecified 08/29/2012 - Diabetes mellitus type 2, controlled, without complications (HCC) 08/12/2007 In records from treatment after elevated sugars in 2001 during hospital stay; no longer on any meds and sugars have been fine--either normal or just in impaired fasting glucose level - Embolism and thrombosis (HCC) 08/14/2005 - Environmental allergies 01/17/2012 - Exostosis of unspecified site 09/27/2010 - Fibromyalgia - Goiter, unspecified - Hypothyroidism 10/28/2009 - Nausea alone - Obesity - STACY treated with BiPAP [facility] supplier - Other diseases of lung, not elsewhere classified - Other hammer toe (acquired) 09/27/2010 - RA (rheumatoid arthritis) (HCC) - 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 also elevated BMI . RECOMMENDATIONS are 1.weight loss.2. not seen significant sleep apnea however absense or REM sleep sleep apnea may be understimated.Extrinsic factors leading to excessive daytime somnolence such as mood disturbances and or medication effect may be a factor Current Outpatient Prescriptions: adalimumab (HUMIRA) 40 mg/0.8 mL injection Inject 40 mg subcutaneously one time only. albuterol (PROVENTIL) 2.5 mg /3 mL (0.083 %) nebulizer solution Use 3 mL via nebulizer every 6 hours as needed. albuterol HFA (PROAIR HFA) 90 mcg/actuation inhaler Inhale 2 Puffs as instructed every 4 hours as needed for Wheezing/Shortness of Breath. albuterol HFA (PROVENTIL HFA, VENTOLIN HFA) 90 mcg/actuation inhaler Inhale 2 Puffs as instructed every 4 hours as needed (for cough, wheezing, chest tightness or shortness of breath. Use with spacer. ). Alpha Lipoic Acid 600 mg cap Take 1 capsule by mouth twice daily. alpha tocopheryl acetate (VITAMIN E) 400 unit capsule Take 2 capsules by mouth once daily. (Patient not taking: Reported on 11/15/2018 ) atorvastatin (LIPITOR) 10 mg tablet Take 1 tablet by mouth daily at bedtime. For cholesterol. Blood Pressure Test Kit-Wrist kit Use to check blood pressure once daily as directed DX:I10 blood sugar diagnostic (TRUE METRIX GLUCOSE TEST STRIP) test strip Test blood sugar 4 x daily. Dx: E11.22. Insulin use: Yes budesonide-formoterol (SYMBICORT) 160-4.5 mcg/actuation inhaler Inhale 2 Puffs as instructed twice daily. (Patient not taking: Reported on 10/22/2018 ) CALCIUM CARB/MAGNESIUM OX,CARB (YASMINE-MAG ORAL) Take by mouth. cephALEXin (KEFLEX) 500 mg capsule Take 1 capsule by mouth four times daily for 10 days. Take with food Cetirizine (ZYRTEC) 10 mg cap Take by mouth daily at bedtime. Chlorhexidine Gluconate (PERIDEX) 0.12 % solution Take 15 mL by mouth twice daily. as needed for tooth / mouth pain cholecalciferol (VITAMIN D3) 5,000 unit tab Take 1 tablet by mouth once daily. clonazePAM (KLONOPIN) 1 mg tablet Take 0.5-1 tablets by mouth daily at bedtime for 90 days. COMPOUNDED PRESCRIPTION Decrease BiPAP settings to 11/5 cmH2O. Diagnosis G47.33 COMPOUNDED PRESCRIPTION Morphine 15 mg per pump filled every [address] Wetzel COMPOUNDED PRESCRIPTION SHOWER CHAIR WITH BACK DX M06.9 I74.9 COMPOUNDED PRESCRIPTION SUCTION STYLE GRAB BAR FOR SHOWER WALL INSTALLATION DX M 06.9 I 74.9 COUMADIN 1 mg tablet take 5mg daily except for Sunday, take 7.5 mg on Sunday or as directedDO NOT SUBSITUTE WITH GENERIC. dextromethorphan (DELSYM) 30 mg/5 mL liquid Take 10 mL by mouth twice daily. for cough dicyclomine (BENTYL) 10 mg capsule Take 1 capsule by mouth four times daily as needed (cramping pains and urgency with bowels). enoxaparin (LOVENOX) 40 mg/0.4 mL syrg 40 mg subcutaneous every 12 hours starting August 12 in the morning; take only the morning dose August 14; do not take August 15 (day of procedure); resume 40 mg every 12 hours starting evening of August 16 ; continue until INR therapeutic (Patient not taking: Reported on 11/15/2018 ) escitalopram oxalate (LEXAPRO) 20 mg tablet Take 1 tablet by mouth once daily. fluticasone (FLONASE) 50 mcg/actuation nasal spray Use 1-2 Sprays in each nostril once daily. fluticasone-vilanterol (BREO ELLIPTA) 200-25 mcg/dose inhaler Inhale 1 Inhalation as instructed once daily. hydroxychloroquine (PLAQUENIL) 200 mg tablet Take 1 tablet by mouth once daily. insulin glargine (LANTUS SOLOSTAR U-100 INSULIN) 100 unit/mL (3 mL) inpn Inject 12 Units subcutaneously twice daily. insulin lispro (HUMALOG KWIKPEN INSULIN) 100 unit/mL inpn Inject 10 Units subcutaneously w MEALS. Three times daily insulin needles, DISPOSABLE, (BD INSULIN PEN NEEDLE UF) 31 gauge x 5/16 ndle Use with insulin pens 5 times daily, or as directed, Dx: E11.22 insulin needles, DISPOSABLE, (UNIFINE PENTIPS) 31 gauge x 5/16 ndle Inject 1 Each subcutaneously four times daily. ketoconazole (NIZORAL) 2 % cream Apply 1 application to affected area once daily. as needed to corners of lips and other rash as directed Lactobacillus acidophilus (PROBIOTIC) 10 billion cell cap Take 2 tablets by mouth daily at bedtime. levothyroxine (LEVOXYL) 100 mcg tablet Take 1 tablet by mouth daily before breakfast. lisinopril (PRINIVIL) 10 mg tablet Take 1 tablet by mouth once daily. loratadine (CLARITIN) 10 mg tablet Take 1 tablet by mouth once daily. melatonin 1 mg tablet Take 1 tablet by mouth daily at bedtime. [facility] CUSTOM JOBST KNEE HI COMPRESSION STOCKING 30-40MM/HG. Dispense 2 pair Diagnosis:(I87.2) Venous insufficiency of both lower extremities; (R60.9) Edema multivitamin with minerals (HAIR,SKIN AND NAILS) tablet Take 1 tablet by mouth three times daily. nystatin (MYCOSTATIN) 100,000 unit/mL suspension 1 tsp swish and swallow until gone, 4 times daily nystatin (MYCOSTATIN) cream Apply 1 application to affected area twice daily. As needed [place]-3 Fatty Acids-Vitamin E (FISH OIL) 1,000 mg cap Take 1 capsule by mouth three times daily. Omeprazole 40 mg capsule Take 1 capsule by mouth once daily. ondansetron (ZOFRAN) 4 mg tablet Take 1 tablet by mouth every 8 hours as needed for Nausea/Vomiting. QUEtiapine (SEROQUEL) 25 mg tablet Take 1 tablet by mouth twice daily. rOPINIRole (REQUIP) 1 mg tablet Take 1 tablet by mouth four times daily. As directed sucralfate (CARAFATE) 100 mg/mL suspension Take 10 mL by mouth four times daily as needed. As directed (usually before meals and bedtime as needed) tiZANidine (ZANAFLEX) 2 mg tablet Take 1 tablet by mouth every 8 hours as needed (muscle spasms, neck pain and headache). May make drowsy topiramate (TOPAMAX) 100 mg tablet Take 100 mg by mouth twice daily. topiramate (TOPAMAX) 50 mg tablet Take 1 tablet by mouth three times daily. for headache triamcinolone acetonide (KENALOG) 0.1 % cream Apply 1 application to affected area three times daily as needed (itchy rash/psoriasis on hands). Apply sparingly verapamil (CALAN, ISOPTIN) 40 mg tablet Take 1 tablet by mouth three times daily. vitamin b complex (B COMPLETE) tab Take 1 tablet by mouth once daily. warfarin (COUMADIN) 5 mg tablet Take 1 tablet by mouth once daily. SHENG - 7.5mg , sun and 5mg all other days or as directed warfarin (COUMADIN) 7.5 mg tablet Take 1 tablet by mouth daily as directed. No current facility-administered medications for this visit. OBJECTIVE: Wt 125.2 kg (276 lb) BMI 53.90 kg/m? Patient is alert, oriented times 3, no apparent distress, affect is bright, reactive. Last 5 Encounter BP Readings: Date: BP: 11/08/2018 104/62 11/04/2018 112/80 10/22/2018 122/80 10/14/2018 144/90 10/07/2018 160/110 Last 5 Encounter Wt Readings: Date: Wt: 11/15/2018 125.2 kg (276 lb) 11/08/2018 125.2 kg (276 lb) 11/04/2018 122 kg (269 lb) 10/22/2018 127.9 kg (282 lb) 10/14/2018 125.2 kg (276 lb) HEENT: poor dentition with dental caries base of teeth noted. Heart: Regular rate, rhythm, no murmurs, gallops, rubs. Lungs: Clear to auscultation, bilaterally, breathing non labored. Ext: No cyanosis, clubbing, or edema. Abdomen: large abdominal pannus hard from edema with some pink but not hot red lower part. No weeping or blisters noted. Reviewed labs. ASSESSMENT AND PLAN: Encounter Diagnosis ICD-10-CM 1. Bipolar disorder, current episode depressed, severe, without psychotic features (HCC) F31.4 QUEtiapine (SEROQUEL) 25 mg tablet 2. Acquired hypothyroidism E03.9 TSH BLD T4 FREE/FREE THYROX 3. Essential hypertension I10 Hydrochlorothiazide 12.5 mg capsule 4. Localized edema R60.0 legs but also abdominal pannus 5. Fatigue, unspecified type R53.83 6. Sleep deprivation Z72.820 7. Marital conflict involving divorce Z63.5 8. Cellulitis of other specified site L03.818 abdominal pannus 9. Anxiety F41.9 10. CKD (chronic kidney disease) stage 3, GFR 30-59 ml/min ([facility]) N18.3 11. Poor dentition K08.9 Severe depression as noted on PHQ9 and severe anxiety on SEB-7. Will increase seroquel to see if helps augment Lexapro, but reinforced need to get consolidated sleep at night--right now is not sleeping well at night because who is her comes home at night and sleeps in their bed then leaves in the morning to spend that day at his mother's home. She ends up falling asleep on the loveseat and dozes off and on at night then after he leaves, she will sleep some off and on so not really getting much rest. She will discuss with her counselor and see about getting help dealing with stressors dealing with --he tends to yell at her especially about not cleaning the house. She states that does not like house being messy, but has been too depressed to want to do much. Does not feel like has much support--restoration family looks down on divorce, so seems like they are not supportive of her even though she is not the one seeking the divorce. When sees the psychiatrist, will decide with them whether or not the increase in the Seroquel was effective or adequate. I told her I would not increase the Clonazepam nor would I add lorazepam since these re both benzodiazepines and not for depression. Also, sleeping better at night would be the main thing needs to do rather than add more meds. Will add back the HCTZ to help with edema but avoid too often or fdc routine use because of renal function. Will get labs next week. Also noted that has been missing 3 doses of thyroid pill a week. Reviewed that this could contribute to depression, fatigue, fluid retention. See patient instructions. Will check TFTs soon then after 2 months to see whether or not need to adjust dose. Above issues addressed with patient. Patient involved in shared decision making for management of medical issues. History and medications reviewed. Epic updated as needed Refills taken care of and meds adjusted as indicated after reviewed history, exam and labs. Health Maintenance reviewed. Updated record and/or ordered tests as recorded. Encouraged on efforts at healthy diet and regular exercise and adequate sleep. Needs to keep working on diet and exercise with lifestyle changes for effective weight loss as well as control of DM, and control of BP and lipids. Emotional support given. Invited her to [employer]. Noted that she does sing--could join the choir. She plans to see surgeon about removing her abdominal pannus. Discussed need to control sugars better and treat infection before could actually have any surgery.. Will need teeth extraction and dentures because of cavities at base of teeth due to receding gums and dry mouth issues. Planning on doing after divorce finalized. Discussed decubitis on buttocks. States the one on left almost healed but one on right still taking long time to heal. Further evaluation and treatment as indicated. The majority of the visit was spent counseling and/or coordinating care for the patient. Iqto-ps-qctn time was at least 60 minutes. Livia Scott MD CNOV Observed: 11/15/2018 Status: COMPLETED Source: [place] 4:20 PM [facility] REPOSITORY Office Visit (INTMWS) DEBORA MEYERS ([id number]) 1965 F Date Time Provider Department 11/15/18 4:20 PM LIVIA SCOTT INTMWS During your visit today, we recorded the following information about you: Weight 125.2 kg Livia Scott MD 11/15/2018 7:16 PM Signed Patient presents with: Recheck: Follow up SUBJECTIVE: Debora Meyers is a 53 year old year old lady here today for follow up appointment for review of medical conditions. Cellulitis of pannus is better but still red under pannus. Gained weight with stressors. Will try Mucinex for cold symptoms. Fevers still since Chirstmas but sometimes does go away. Still seeing Dr. Caraballo but not till a couple weeks from now. Will see counselor next week. PAST MEDICAL HISTORY Diagnosis Date - Allergic rhinitis used to receive allergy shots from Dr. Brown - Alopecia, unspecified 08/29/2012 - Anticoagulated on Coumadin INR goal 3.0 to 4.0 - Anxiety - Asthma - Benign neoplasm of stomach - Bipolar disorder, unspecified 08/29/2012 - Diabetes mellitus type 2, controlled, without complications (HCC) 08/12/2007 In records from treatment after elevated sugars in 2001 during hospital stay; no longer on any meds and sugars have been fine--either normal or just in impaired fasting glucose level - Embolism and thrombosis (HCC) 08/14/2005 - Environmental allergies 01/17/2012 - Exostosis of unspecified site 09/27/2010 - Fibromyalgia - Goiter, unspecified - Hypothyroidism 10/28/2009 - Nausea alone - Obesity - STACY treated with BiPAP [facility] supplier - Other diseases of lung, not elsewhere classified - Other hammer toe (acquired) 09/27/2010 - RA (rheumatoid arthritis) (HCC) - 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 also elevated BMI . RECOMMENDATIONS are 1.weight loss.2. not seen significant sleep apnea however absense or REM sleep sleep apnea may be understimated.Extrinsic factors leading to excessive daytime somnolence such as mood disturbances and or medication effect may be a factor Current Outpatient Prescriptions: adalimumab (HUMIRA) 40 mg/0.8 mL injection Inject 40 mg subcutaneously one time only. albuterol (PROVENTIL) 2.5 mg /3 mL (0.083 %) nebulizer solution Use 3 mL via nebulizer every 6 hours as needed. albuterol HFA (PROAIR HFA) 90 mcg/actuation inhaler Inhale 2 Puffs as instructed every 4 hours as needed for Wheezing/Shortness of Breath. albuterol HFA (PROVENTIL HFA, VENTOLIN HFA) 90 mcg/actuation inhaler Inhale 2 Puffs as instructed every 4 hours as needed (for cough, wheezing, chest tightness or shortness of breath. Use with spacer. ). Alpha Lipoic Acid 600 mg cap Take 1 capsule by mouth twice daily. alpha tocopheryl acetate (VITAMIN E) 400 unit capsule Take 2 capsules by mouth once daily. (Patient not taking: Reported on 11/15/2018 ) atorvastatin (LIPITOR) 10 mg tablet Take 1 tablet by mouth daily at bedtime. For cholesterol. Blood Pressure Test Kit-Wrist kit Use to check blood pressure once daily as directed DX:I10 blood sugar diagnostic (TRUE METRIX GLUCOSE TEST STRIP) test strip Test blood sugar 4 x daily. Dx: E11.22. Insulin use: Yes budesonide-formoterol (SYMBICORT) 160-4.5 mcg/actuation inhaler Inhale 2 Puffs as instructed twice daily. (Patient not taking: Reported on 10/22/2018 ) CALCIUM CARB/MAGNESIUM OX,CARB (YASMINE-MAG ORAL) Take by mouth. cephALEXin (KEFLEX) 500 mg capsule Take 1 capsule by mouth four times daily for 10 days. Take with food Cetirizine (ZYRTEC) 10 mg cap Take by mouth daily at bedtime. Chlorhexidine Gluconate (PERIDEX) 0.12 % solution Take 15 mL by mouth twice daily. as needed for tooth / mouth pain cholecalciferol (VITAMIN D3) 5,000 unit tab Take 1 tablet by mouth once daily. clonazePAM (KLONOPIN) 1 mg tablet Take 0.5-1 tablets by mouth daily at bedtime for 90 days. COMPOUNDED PRESCRIPTION Decrease BiPAP settings to 11/5 cmH2O. Diagnosis G47.33 COMPOUNDED PRESCRIPTION Morphine 15 mg per pump filled every [address] Wetzel COMPOUNDED PRESCRIPTION SHOWER CHAIR WITH BACK DX M06.9 I74.9 COMPOUNDED PRESCRIPTION SUCTION STYLE GRAB BAR FOR SHOWER WALL INSTALLATION DX M 06.9 I 74.9 COUMADIN 1 mg tablet take 5mg daily except for Sunday, take 7.5 mg on Sunday or as directedDO NOT SUBSITUTE WITH GENERIC. dextromethorphan (DELSYM) 30 mg/5 mL liquid Take 10 mL by mouth twice daily. for cough dicyclomine (BENTYL) 10 mg capsule Take 1 capsule by mouth four times daily as needed (cramping pains and urgency with bowels). enoxaparin (LOVENOX) 40 mg/0.4 mL syrg 40 mg subcutaneous every 12 hours starting August 12 in the morning; take only the morning dose August 14; do not take August 15 (day of procedure); resume 40 mg every 12 hours starting evening of August 16 ; continue until INR therapeutic (Patient not taking: Reported on 11/15/2018 ) escitalopram oxalate (LEXAPRO) 20 mg tablet Take 1 tablet by mouth once daily. fluticasone (FLONASE) 50 mcg/actuation nasal spray Use 1-2 Sprays in each nostril once daily. fluticasone-vilanterol (BREO ELLIPTA) 200-25 mcg/dose inhaler Inhale 1 Inhalation as instructed once daily. hydroxychloroquine (PLAQUENIL) 200 mg tablet Take 1 tablet by mouth once daily. insulin glargine (LANTUS SOLOSTAR U-100 INSULIN) 100 unit/mL (3 mL) inpn Inject 12 Units subcutaneously twice daily. insulin lispro (HUMALOG KWIKPEN INSULIN) 100 unit/mL inpn Inject 10 Units subcutaneously w MEALS. Three times daily insulin needles, DISPOSABLE, (BD INSULIN PEN NEEDLE UF) 31 gauge x 5/16 ndle Use with insulin pens 5 times daily, or as directed, Dx: E11.22 insulin needles, DISPOSABLE, (UNIFINE PENTIPS) 31 gauge x 5/16 ndle Inject 1 Each subcutaneously four times daily. ketoconazole (NIZORAL) 2 % cream Apply 1 application to affected area once daily. as needed to corners of lips and other rash as directed Lactobacillus acidophilus (PROBIOTIC) 10 billion cell cap Take 2 tablets by mouth daily at bedtime. levothyroxine (LEVOXYL) 100 mcg tablet Take 1 tablet by mouth daily before breakfast. lisinopril (PRINIVIL) 10 mg tablet Take 1 tablet by mouth once daily. loratadine (CLARITIN) 10 mg tablet Take 1 tablet by mouth once daily. melatonin 1 mg tablet Take 1 tablet by mouth daily at bedtime. [facility] CUST[employer] JOBST KNEE HI COMPRESSION STOCKING 30-40MM/HG. Dispense 2 pair Diagnosis:(I87.2) Venous insufficiency of both lower extremities; (R60.9) Edema multivitamin with minerals (HAIR,SKIN AND NAILS) tablet Take 1 tablet by mouth three times daily. nystatin (MYCOSTATIN) 100,000 unit/mL suspension 1 tsp swish and swallow until gone, 4 times daily nystatin (MYCOSTATIN) cream Apply 1 application to affected area twice daily. As needed [place]-3 Fatty Acids-Vitamin E (FISH OIL) 1,000 mg cap Take 1 capsule by mouth three times daily. Omeprazole 40 mg capsule Take 1 capsule by mouth once daily. ondansetron (ZOFRAN) 4 mg tablet Take 1 tablet by mouth every 8 hours as needed for Nausea/Vomiting. QUEtiapine (SEROQUEL) 25 mg tablet Take 1 tablet by mouth twice daily. rOPINIRole (REQUIP) 1 mg tablet Take 1 tablet by mouth four times daily. As directed sucralfate (CARAFATE) 100 mg/mL suspension Take 10 mL by mouth four times daily as needed. As directed (usually before meals and bedtime as needed) tiZANidine (ZANAFLEX) 2 mg tablet Take 1 tablet by mouth every 8 hours as needed (muscle spasms, neck pain and headache). May make drowsy topiramate (TOPAMAX) 100 mg tablet Take 100 mg by mouth twice daily. topiramate (TOPAMAX) 50 mg tablet Take 1 tablet by mouth three times daily. for headache triamcinolone acetonide (KENALOG) 0.1 % cream Apply 1 application to affected area three times daily as needed (itchy rash/psoriasis on hands). Apply sparingly verapamil (CALAN, ISOPTIN) 40 mg tablet Take 1 tablet by mouth three times daily. vitamin b complex (B COMPLETE) tab Take 1 tablet by mouth once daily. warfarin (COUMADIN) 5 mg tablet Take 1 tablet by mouth once daily. SHENG - 7.5mg , sun and 5mg all other days or as directed warfarin (COUMADIN) 7.5 mg tablet Take 1 tablet by mouth daily as directed. No current facility-administered medications for this visit. OBJECTIVE: Wt 125.2 kg (276 lb) BMI 53.90 kg/m? Patient is alert, oriented times 3, no apparent distress, affect is bright, reactive. Last 5 Encounter BP Readings: Date: BP: 11/08/2018 104/62 11/04/2018 112/80 10/22/2018 122/80 10/14/2018 144/90 10/07/2018 160/110 Last 5 Encounter Wt Readings: Date: Wt: 11/15/2018 125.2 kg (276 lb) 11/08/2018 125.2 kg (276 lb) 11/04/2018 122 kg (269 lb) 10/22/2018 127.9 kg (282 lb) 10/14/2018 125.2 kg (276 lb) HEENT: poor dentition with dental caries base of teeth noted. Heart: Regular rate, rhythm, no murmurs, gallops, rubs. Lungs: Clear to auscultation, bilaterally, breathing non labored. Ext: No cyanosis, clubbing, or edema. Abdomen: large abdominal pannus hard from edema with some pink but not hot red lower part. No weeping or blisters noted. Reviewed labs. ASSESSMENT AND PLAN: Encounter Diagnosis ICD-10-CM 1. Bipolar disorder, current episode depressed, severe, without psychotic features ([facility]) F31.4 QUEtiapine (SEROQUEL) 25 mg tablet 2. Acquired hypothyroidism E03.9 TSH BLD T4 FREE/FREE THYROX 3. Essential hypertension I10 Hydrochlorothiazide 12.5 mg capsule 4. Localized edema R60.0 legs but also abdominal pannus 5. Fatigue, unspecified type R53.83 6. Sleep deprivation Z72.820 7. Marital conflict involving divorce Z63.5 8. Cellulitis of other specified site L03.818 abdominal pannus 9. Anxiety F41.9 10. CKD (chronic kidney disease) stage 3, GFR 30-59 ml/min ([facility]) N18.3 11. Poor dentition K08.9 Severe depression as noted on PHQ9 and severe anxiety on SEB-7. Will increase seroquel to see if helps augment Lexapro, but reinforced need to get consolidated sleep at night--right now is not sleeping well at night because who is her comes home at night and sleeps in their bed then leaves in the morning to spend that day at his mother's home. She ends up falling asleep on the loveseat and dozes off and on at night then after he leaves, she will sleep some off and on so not really getting much rest. She will discuss with her counselor and see about getting help dealing with stressors dealing with --he tends to yell at her especially about not cleaning the house. She states that does not like house being messy, but has been too depressed to want to do much. Does not feel like has much support--restoration family looks down on divorce, so seems like they are not supportive of her even though she is not the one seeking the divorce. When sees the psychiatrist, will decide with them whether or not the increase in the Seroquel was effective or adequate. I told her I would not increase the Clonazepam nor would I add lorazepam since these re both benzodiazepines and not for depression. Also, sleeping better at night would be the main thing needs to do rather than add more meds. Will add back the HCTZ to help with edema but avoid too often or fdc routine use because of renal function. Will get labs next week. Also noted that has been missing 3 doses of thyroid pill a week. Reviewed that this could contribute to depression, fatigue, fluid retention. See patient instructions. Will check TFTs soon then after 2 months to see whether or not need to adjust dose. Above issues addressed with patient. Patient involved in shared decision making for management of medical issues. History and medications reviewed. Epic updated as needed Refills taken care of and meds adjusted as indicated after reviewed history, exam and labs. Health Maintenance reviewed. Updated record and/or ordered tests as recorded. Encouraged on efforts at healthy diet and regular exercise and adequate sleep. Needs to keep working on diet and exercise with lifestyle changes for effective weight loss as well as control of DM, and control of BP and lipids. Emotional support given. Invited her to [place]. Noted that she does sing--could join the choir. She plans to see surgeon about removing her abdominal pannus. Discussed need to control sugars better and treat infection before could actually have any surgery.. Will need teeth extraction and dentures because of cavities at base of teeth due to receding gums and dry mouth issues. Planning on doing after divorce finalized. Discussed decubitis on buttocks. States the one on left almost healed but one on right still taking long time to heal. Further evaluation and treatment as indicated. The majority of the visit was spent counseling and/or coordinating care for the patient. [id number] time was at least 60 minutes. MD Livia Mas MD 11/15/2018 6:33 PM Addendum Turmeric 500 mg twice daily--can help with inflammation. May get labs to include the BMP, TSH, Free T4 and HgA1C next week Plan on thyroid labs in another 2 months to see if improved with taking thyroid dose routinely. Try having dose at bedside with water so can take when wake up in AM. May take the HCTZ every other day for now to get swelling down in abdomen and legs. Once swelling down, change to taking just as needed. Try to get 1200 calories in per day instead of under 1000. Referring Provider: LIVIA SCOTT [[id number]] Allergies As of Date: 11/15/2018 Noted Allergy Reaction environmental [Other] 07/14/2005 2 - Rash 3 - Cough VITAMIN K 07/14/2005 7 - Swelling CHOLESTYRAMINE 03/31/2013 14 - Other: See Comments Comments: constipation DELETED: IBUPROFEN 06/29/2009 6 - Diarrhea MACROBID (NITROFURANTOIN MONOHYD/*12/06/2010 2 - Rash Comments: states that broke out all over with rash last time was given this in September 2010 peroxide [Other] 07/14/2005 5 - Intolerance SULFA (SULFONAMIDE ANTIBIOTICS) 02/05/2013 2 - Rash DELETED: TYLENOL (ACETAMINOPHEN) 03/17/2014 11 - Vomiting Comments: Nausea Date Reviewed: 11/08/2018 Reviewed by: Portia Bennett LPN - Fully Assessed Reason for Visit: Recheck [92] Cmt: Follow up Primary Visit Diagnosis:Bipolar disorder, current episode depressed, severe, without psychotic features ([facility]) [F31.4] Other Visit Diagnoses:Acquired hypothyroidism [E03.9] Essential hypertension [I10] Localized edema [R60.0] Comment:legs but also abdominal pannus Fatigue, unspecified type [R53.83] Sleep deprivation [Z72.820] Marital conflict involving divorce [Z63.5] Cellulitis of other specified site [L03.818] Comment:abdominal pannus Anxiety [F41.9] CKD (chronic kidney disease) stage 3, GFR 30-59 ml/min ([facility]) [N18.3] Poor dentition [K08.9] Order(s):TSH BLD [SQTSH] Order #: [id number] STANDING T4 FREE/FREE THYROX [SQFT4] Order #: [id number] STANDING Hydrochlorothiazide 12.5 mg capsuleTake 1 capsule by mouth once daily as needed.Disp: 30 capsuleRfl: 1 QUEtiapine (SEROQUEL) 25 mg tabletTake 1-2 tablets by mouth twice daily.Disp: 120 tabletRfl: 0 Prescriptions as of 11/15/2018 Sig: HYDROCHLOROTHIAZIDE 12.5 MG C* Take 1 capsule by mouth once * QUETIAPINE 25 MG TABLET Take 1-2 tablets by mouth twi* DEXTROMETHORPHAN POLISTIREX E* Take 10 mL by mouth twice trista* CEPHALEXIN 500 MG CAPSULE Take 1 capsule by mouth four * NYSTATIN 100,000 UNIT/ML ORAL* 1 tsp swish and swallow until* SUCRALFATE 100 MG/ML ORAL BART* Take 10 mL by mouth four time* LISINOPRIL 10 MG TABLET Take 1 tablet by mouth once d* INSULIN GLARGINE (U-100) 100 * Inject 12 Units subcutaneousl* CHLORHEXIDINE GLUCONATE 0.12 * Take 15 mL by mouth twice trista* TOPIRAMATE 100 MG TABLET Take 100 mg by mouth twice da* TIZANIDINE 2 MG TABLET Take 1 tablet by mouth every * ROPINIROLE 1 MG TABLET Take 1 tablet by mouth four t* OMEPRAZOLE 40 MG CAPSULE,LALITO* Take 1 capsule by mouth once * X CLONAZEPAM 1 MG TABLET Take 0.5-1 tablets by mouth d* ENOXAPARIN 40 MG/0.4 ML SUBCU* 40 mg subcutaneous every 12 h* Patient not taking: Reported on 11/15/2018 ALPHA LIPOIC ACID 600 MG CAPS* Take 1 capsule by mouth twice* PEN NEEDLE, DIABETIC 31 GAUGE* Use with insulin pens 5 times* TOPIRAMATE 50 MG TABLET Take 1 tablet by mouth three * MELATONIN 1 MG TABLET Take 1 tablet by mouth daily * INSULIN LISPRO (U-100) 100 UN* Inject 10 Units subcutaneousl* LORATADINE 10 MG TABLET Take 1 tablet by mouth once d* VERAPAMIL 40 MG TABLET Take 1 tablet by mouth three * ATORVASTATIN 10 MG TABLET Take 1 tablet by mouth daily * DICYCLOMINE 10 MG CAPSULE Take 1 capsule by mouth four * ONDANSETRON HCL 4 MG TABLET Take 1 tablet by mouth every * LEVOTHYROXINE 100 MCG TABLET Take 1 tablet by mouth daily * BLOOD SUGAR DIAGNOSTIC STRIPS Test blood sugar 4 x daily. D* ADALIMUMAB 40 MG/0.8 ML SUBCU* Inject 40 mg subcutaneously o* FLUTICASONE 50 MCG/ACTUATION * Use 1-2 Sprays in each nostri* CETIRIZINE 10 MG CAPSULE Take by mouth daily at bedtim* FLUTICASONE 200 MCG-VILANTERO* Inhale 1 Inhalation as instru* ALBUTEROL SULFATE HFA 90 MCG/* Inhale 2 Puffs as instructed * TRIAMCINOLONE ACETONIDE 0.1 %* Apply 1 application to affect* PEN NEEDLE, DIABETIC 31 GAUGE* Inject 1 Each subcutaneously * CHOLECALCIFEROL (VITAMIN D3) * Take 1 tablet by mouth once d* WARFARIN 7.5 MG TABLET Take 1 tablet by mouth daily * WARFARIN 5 MG TABLET Take 1 tablet by mouth once d* MULTIVITAMIN WITH MINERALS TA* Take 1 tablet by mouth three * VITAMIN E 400 UNIT CAPSULE Take 2 capsules by mouth once* Patient not taking: Reported on 11/15/2018 COMPOUNDED PRESCRIPTION SHOWER CHAIR WITH BACK D* COMPOUNDED PRESCRIPTION SUCTION STYLE GRAB BAR FOR SH* ALBUTEROL SULFATE HFA 90 MCG/* Inhale 2 Puffs as instructed * COUMADIN 1 MG TABLET take 5mg daily except for Sun* ALBUTEROL SULFATE 2.5 MG/3 ML* Use 3 mL via nebulizer every * BLOOD PRESSURE TEST KIT-WRIST* Use to check blood pressure o* HYDROXYCHLOROQUINE 200 MG TAB* Take 1 tablet by mouth once d* BUDESONIDE-FORMOTEROL HFA 160* Inhale 2 Puffs as instructed * Patient not taking: Reported on 10/22/2018 YASMINE-MAG ORAL Take by mouth. NYSTATIN 100,000 UNIT/GRAM TO* Apply 1 application to affect* ESCITALOPRAM 20 MG TABLET Take 1 tablet by mouth once d* COMPOUNDED PRESCRIPTION Morphine 15 mg per pump fille* LACTOBACILLUS ACIDOPHILUS 10 * Take 2 tablets by mouth daily* VITAMIN B COMPLEX TABLET Take 1 tablet by mouth once d* COMPOUNDED PRESCRIPTION Decrease BiPAP settings to 11* MISCELLANEOUS MEDICAL SUPPLY * CUSTOM JOBST KNEE HI KIRSTY* KETOCONAZOLE 2 % TOPICAL CREAM Apply 1 application to affect* OMEGA-3 FATTY ACIDS-VITAMIN E* Take 1 capsule by mouth three* Problem List As Of Date 11/15/2018 Noted Resolved OTHER LUNG DISEASE NEC [J98.4] Asthma [J45.909] OTHER UNSPEC SLEEP APNEA [G47.30] Dysmetabolic syndrome X [E88.81] 09/11/2011 Fibromyalgia [M79.7] Embolism and thrombosis (HCC) [I74.9] INVALID FOR*05/05/2018 GOITER NOS [E04.9] REFLUX ESOPHAGITIS [K21.0] NAUSEA ALONE [R11.0] ACUTE GASTRITIS W/O HEMORRHAGE [K29.00] INVALID FOR* CONSTIPATION NOS [K59.00] INVALID FOR* More... 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 Obstructive Sleep Apnea [G47.33] INVALID FOR* More... Hypothyroidism [E03.9] INVALID FOR* Exostosis of unspecified site [M89.8X9] INVALID FOR*11/27/2017 Other hammer toe (acquired) [M20.40] INVALID FOR*11/27/2017 Hx of hysterectomy [Z90.710] INVALID FOR* More... Allergic rhinitis [J30.9] More... 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] INVALID FOR* Environmental allergies [Z91.09] INVALID FOR*11/27/2017 Morbid obesity due to excess calories (HCC) [E6* Chronic kidney disease, stage III (moderate) [N*INVALID FOR*11/27/2017 Essential hypertension [I10] INVALID FOR* Nephrolithiasis [N20.0] INVALID FOR* Vitamin D deficiency [E55.9] INVALID FOR* Rheumatoid arthritis (HCC) [M06.9] INVALID FOR* Bipolar disorder, unspecified [F31.9] INVALID FOR* Alopecia, unspecified [L65.9] INVALID FOR*11/27/2017 Personal history of pulmonary embolism [Z86.711]INVALID FOR* Irritable bowel syndrome [K58.9] INVALID FOR* Neuropathy [G62.9] INVALID FOR* Incisional hernia [K43.2] INVALID FOR* Polycythemia, 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 Type 2 DM with CKD stage 3 and hypertension (HC*INVALID FOR* Polypharmacy [Z79.899] INVALID FOR* Noncompliance with treatment [Z91.19] INVALID FOR* CKD (chronic kidney disease) stage 4, GFR 15-29*INVALID FOR*08/26/2017 Nonallergic rhinitis [J31.0] INVALID FOR* History of deep vein thrombosis [Z86.718] INVALID FOR* Hypoxemia [R09.02] INVALID FOR* More... Acute kidney injury superimposed on chronic kid*INVALID FOR* Metabolic encephalopathy [G93.41] INVALID FOR* Hyperkalemia [E87.5] INVALID FOR* Abdominal pannus [E65] INVALID FOR* Anxiety [F41.9] Other instructions from your clinician: Turmeric 500 mg twice daily--can help with inflammation. May get labs to include the BMP, TSH, Free T4 and HgA1C next week Plan on thyroid labs in another 2 months to see if improved with taking thyroid dose routinely. Try having dose at bedside with water so can take when wake up in AM. May take the HCTZ every other day for now to get swelling down in abdomen and legs. Once swelling down, change to taking just as needed. Try to get 1200 calories in per day instead of under 1000. Prescriptions ordered this encounter Disp Refills Start End HYDROCHLOROTHIAZIDE 12.5 MG CAPSULE 30 c* 1 11/15/2018 Route: ORAL Sig: Take 1 capsule by mouth once daily as needed. QUETIAPINE 25 MG TABLET 120 * 0 11/15/2018 Cmt: Intentional dose increase till see Dr. Caraballo for follow up Route: ORAL Sig: Take 1-2 tablets by mouth twice daily. Medications Discontinued During This Encounter QUEtiapine (SEROQUEL) 25 mg tablet 05/08/2017 11/15/2018 Class: Med Update Route: ORAL Sig: Take 1 tablet by mouth twice daily. Disc: Reason for discontinue is not on file. Disposition: Return in about 2 weeks (around 11/28/2018) for DM SMA. Follow-up and Disposition History Recorded Questionnaire: PHQ-9 THE LAST 2 WEEKS, HAVE YOU BEEN BOTHERED BY ANY OF THE FOLLOWING? -> - Little interest or pleasure in doing things -> 3 NEARLY EVERY DAY Feeling down, depressed, or hopeless -> 3 Trouble falling or staying asleep, or sleeping too much - > 2 Feeling tired or having little energy -> 3 Poor appetite or overeating -> 3 Feeling bad yourself-you are a failure or have let yourself or others -> 3 Trouble concentrating, like reading the paper or watching TV -> 2 Moving/speaking slowly (others notice) OR being more fidgety/restless -> 2 Thoughts that you would be better off or of hurting yourself -> 1 PHQ TOTAL SCORE = -> 22 PHQ problems effect on difficulty of work, home, and social activity: -> 3 - VERY DIFFICULT Questionnaire: SEB-7 ANXIETY SCALE Feeling nervous, anxious, or on edge -> 3 Nearly every day Not being able to stop or control worrying -> 3 Nearly every day Worrying too much about different things -> 2 Over half the days Trouble relaxing -> 3 Nearly every day Being so restless that it's hard to sit still -> 1 Several days Being easily annoyed or irritable -> 3 Nearly every day Feeling afraid as if something awful might happen -> 3 Nearly every day SEB-7 Anxiety Score -> 18 If you checked off any problems, how difficult have these problems made it for you to do your work, take care of things at home, or get along with other people? -> Extremely difficult Cmt: I don't have trouble getting along with other people but with Louis. All he wants to do is argue, pick fights, and put me down. I can't get my house work done. Encounter Status:Closed by LIVIA SCOTT MD on 11/15/18 PROGRESS Observed: 11/15/2018 Status: COMPLETED Source: [place] 4:12 PM [facility] REPOSITORY HNO ID: [id number] Author: Sheeba King RN Service: (none) Author Type: (none) Type: Progress Notes Filed: 11/15/2018 4:13 PM Note Text: patient had inr completed at [facility] patients inr is 3.5 (patients inr range is 3.0-4.0) patient is currently taking 7.5mg Mon,Wed,Fri and 5mg all other days patients last dose change was on 10/31/18 due to a high level of 5.9 (dose at that time was 7.5mg daily) patient has had no changes in medication except for coumadin and no missed doses and no change in diet Advised patient to continue on the same dose(s) and that they would only be contacted regarding dosage and follow up instructions after review with provider, if a change is needed. Written instructions given and patient verbalized understanding. Presently scheduled in 1 week (11/22/18) for follow up INR. RESP VIR PNL BY Collected: 11/08/2018 Status: F Source: [facility] 11:50 AM [facility] [place] REPOSITORY TYPE CODE TESTS RESULT OUT OF REFERENCE UNITS RANGE LAB RVPSRC Resp Viral Panl Nasopharyngeal Srce Swab LAB FLUARV Negative Influenza A Virus Negative LAB [id number] Negative Influenza A H1N1 Negative 09 LAB FLUBRV Negative Influenza B Virus Negative LAB RSVA Negative Resp Syncytial Negative Vir A LAB RSVB Negative Resp Syncytial Negative Vir B LAB PIV1 Negative Parainfluenza 1 Negative LAB PIV2 Negative Parainfluenza 2 Negative LAB PIV3 Negative Parainfluenza 3 Negative LAB HMPV Negative H Metapneumovirus Negative LAB HRV Negative Rhinovirus Negative LAB ADVBE Negative Adenovirus B/E Negative LAB ADVC Negative Adenovirus C Negative Performed By: #### RVPPCR #### [facility] [address] [address] PROGRESS Observed: 11/08/2018 Status: COMPLETED Source: [place] 11:35 AM [facility] REPOSITORY HNO ID: [id number] Author: Trish Ramírez (Cns) Service: (none) Author Type: Nurse Specialist Type: Progress Notes Filed: 11/08/2018 12:07 PM Note Text: This note was created using NoteWriter. Subjective Debora Meyers is a 53 year old female. She presents today with report of headache body aches and fever starting yesterday morning, sore throat and productive cough. Eyes feel watery and lips are chapped. Perceived fever. No sick contacts. Has been taking Tylenol with some relief. Review of Systems Constitutional: Positive for chills, fatigue and fever. HENT: Negative for congestion, ear pain, postnasal drip, sinus pain, sinus pressure and sore throat. Respiratory: Negative for shortness of breath and wheezing. Cardiovascular: Negative for chest pain. Musculoskeletal: Positive for myalgias. Skin: Negative for color change. Neurological: Positive for headaches. Hematological: Negative for adenopathy. Objective BP 104/62 (BP Site: Right Arm, BP Position: Sitting, BP Cuff Size: Regular Adult) Pulse 88 Temp 37.2 ?C (99 ?F) Resp 16 Wt 125.2 kg (276 lb) SpO2 92% BMI 53.90 kg/m? Physical Exam Constitutional: She is oriented to person, place, and time. She appears well-developed. HENT: Head: Normocephalic and atraumatic. Right Ear: Tympanic membrane, external ear and ear canal normal. Left Ear: Tympanic membrane, external ear and ear canal normal. Nose: No rhinorrhea or sinus tenderness. Right sinus exhibits no maxillary sinus tenderness and no frontal sinus tenderness. Left sinus exhibits no maxillary sinus tenderness and no frontal sinus tenderness. Mouth/Throat: Oropharynx is clear and moist and mucous membranes are normal. Tonsils are 0 on the right. Tonsils are 0 on the left. No tonsillar exudate. Eyes: Conjunctivae are normal. Cardiovascular: Normal rate. Pulmonary/Chest: Effort normal and breath sounds normal. Neurological: She is alert and oriented to person, place, and time. Skin: Skin is warm and dry. Nursing note and vitals reviewed. HISTORIES FAMILY HISTORY Problem Relation Age of Onset - Adopted: Yes - None Mother - Alcohol/Drug Father - None Sister BOWEL PROBLEMS PAST MEDICAL HISTORY Diagnosis Date - Allergic rhinitis used to receive allergy shots from Dr. Brown - Alopecia, unspecified 08/29/2012 - Anticoagulated on Coumadin INR goal 3.0 to 4.0 - Anxiety - Asthma - Benign neoplasm of stomach - Bipolar disorder, unspecified 08/29/2012 - Diabetes mellitus type 2, controlled, without complications (HCC) 08/12/2007 In records from treatment after elevated sugars in 2001 during hospital stay; no longer on any meds and sugars have been fine--either normal or just in impaired fasting glucose level - Embolism and thrombosis (HCC) 08/14/2005 - Environmental allergies 01/17/2012 - Exostosis of unspecified site 09/27/2010 - Fibromyalgia - Goiter, unspecified - Hypothyroidism 10/28/2009 - Nausea alone - Obesity - STACY treated with BiPAP [facility] supplier - Other diseases of lung, not elsewhere classified - Other hammer toe (acquired) 09/27/2010 - RA (rheumatoid arthritis) (HCC) - 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 also elevated BMI . RECOMMENDATIONS are 1.weight loss.2. not seen significant sleep apnea however absense or REM sleep sleep apnea may be understimated.Extrinsic factors leading to excessive daytime somnolence such as mood disturbances and or medication effect may be a factor PAST SURGICAL HISTORY Procedure Laterality Date - COLONOSCOP W/ OR W/O [facility] SPEC 03-06-13 Colonoscopy - EGD W/O OR W/BRUSH/WASH 02/25/2007 EGD - EGD W/O OR W/BRUSH/WASH 11/03/2011 EGD - PAST SURGICAL HISTORY OF [place] except cervix was left in; complicated with wound infection; [facility] - PAST SURGICAL HISTORY OF fundoplication May 1991 - PAST SURGICAL HISTORY OF right foot surgery on achilles tendon - PAST SURGICAL HISTORY OF 09/16/13 bone spur removed from right foot - PAST SURGICAL HISTORY OF 08/2014 Intrathecal pump implant for chronic back pain ([facility]) - PULMONARY FUNCTION TEST 05/04/05 - REMOVAL ADENOIDS,PRIMARY,<12 Y/O Adenoidectomy - REMOVAL GALLBLADDER 1990 Cholecystectomy - REMOVAL OF TONSILS,<12 Y/O Tonsillectomy - TOTAL ABDOM HYSTERECTOMY 2008 polycystic ovaries - UVULECTOMY EXCISION OF UVULA 2004 Social History Marital status: Spouse name: Louis Years of education: Number of children: 0 Social History Main Topics Smoking status: Never Smoker Smokeless tobacco: Never Used Comment: Parents briefly smoked in childhood home. Alcohol use: No Drug use: No Sexual activity: Yes Partners with: Male control/protection: Condom Social History Narrative Birds in home. Basement occasionally wet. ALLERGIES Allergen Reactions - Environmental [Othe* Rash, Cough - Vitamin K Swelling - Cholestyramine Other: See Comments constipation - Ibuprofen Diarrhea - Macrobid [Nitrofura* Rash states that broke out all over with rash last time was given this in September 2010 - Peroxide [Other] Intolerance - Sulfa (Sulfonamide * Rash - Tylenol [Acetaminop* Vomiting Nausea Current Outpatient Prescriptions: adalimumab (HUMIRA) 40 mg/0.8 mL injection Inject 40 mg subcutaneously one time only. albuterol (PROVENTIL) 2.5 mg /3 mL (0.083 %) nebulizer solution Use 3 mL via nebulizer every 6 hours as needed. albuterol HFA (PROAIR HFA) 90 mcg/actuation inhaler Inhale 2 Puffs as instructed every 4 hours as needed for Wheezing/Shortness of Breath. albuterol HFA (PROVENTIL HFA, VENTOLIN HFA) 90 mcg/actuation inhaler Inhale 2 Puffs as instructed every 4 hours as needed (for cough, wheezing, chest tightness or shortness of breath. Use with spacer. ). Alpha Lipoic Acid 600 mg cap Take 1 capsule by mouth twice daily. alpha tocopheryl acetate (VITAMIN E) 400 unit capsule Take 2 capsules by mouth once daily. atorvastatin (LIPITOR) 10 mg tablet Take 1 tablet by mouth daily at bedtime. For cholesterol. Blood Pressure Test Kit-Wrist kit Use to check blood pressure once daily as directed DX:I10 blood sugar diagnostic (TRUE METRIX GLUCOSE TEST STRIP) test strip Test blood sugar 4 x daily. Dx: E11.22. Insulin use: Yes CALCIUM CARB/MAGNESIUM OX,CARB (YASMINE-MAG ORAL) Take by mouth. cephALEXin (KEFLEX) 500 mg capsule Take 1 capsule by mouth four times daily for 10 days. Take with food Cetirizine (ZYRTEC) 10 mg cap Take by mouth daily at bedtime. Chlorhexidine Gluconate (PERIDEX) 0.12 % solution Take 15 mL by mouth twice daily. as needed for tooth / mouth pain cholecalciferol (VITAMIN D3) 5,000 unit tab Take 1 tablet by mouth once daily. clonazePAM (KLONOPIN) 1 mg tablet Take 0.5-1 tablets by mouth daily at bedtime for 90 days. COMPOUNDED PRESCRIPTION Decrease BiPAP settings to 11/5 cmH2O. Diagnosis G47.33 COMPOUNDED PRESCRIPTION Morphine 15 mg per pump filled every [address] Wetzel COMPOUNDED PRESCRIPTION SHOWER CHAIR WITH BACK DX M06.9 I74.9 COMPOUNDED PRESCRIPTION SUCTION STYLE GRAB BAR FOR SHOWER WALL INSTALLATION DX M 06.9 I 74.9 COUMADIN 1 mg tablet take 5mg daily except for Sunday, take 7.5 mg on Sunday or as directedDO NOT SUBSITUTE WITH GENERIC. dicyclomine (BENTYL) 10 mg capsule Take 1 capsule by mouth four times daily as needed (cramping pains and urgency with bowels). enoxaparin (LOVENOX) 40 mg/0.4 mL syrg 40 mg subcutaneous every 12 hours starting August 12 in the morning; take only the morning dose August 14; do not take August 15 (day of procedure); resume 40 mg every 12 hours starting evening of August 16 ; continue until INR therapeutic escitalopram oxalate (LEXAPRO) 20 mg tablet Take 1 tablet by mouth once daily. fluticasone (FLONASE) 50 mcg/actuation nasal spray Use 1-2 Sprays in each nostril once daily. fluticasone-vilanterol (BREO ELLIPTA) 200-25 mcg/dose inhaler Inhale 1 Inhalation as instructed once daily. Hydrochlorothiazide 12.5 mg capsule Take 1 capsule by mouth once daily. hydroxychloroquine (PLAQUENIL) 200 mg tablet Take 1 tablet by mouth once daily. insulin glargine (LANTUS SOLOSTAR U-100 INSULIN) 100 unit/mL (3 mL) inpn Inject 12 Units subcutaneously twice daily. insulin lispro (HUMALOG KWIKPEN INSULIN) 100 unit/mL inpn Inject 10 Units subcutaneously w MEALS. Three times daily insulin needles, DISPOSABLE, (BD INSULIN PEN NEEDLE UF) 31 gauge x 5/16 ndle Use with insulin pens 5 times daily, or as directed, Dx: E11.22 insulin needles, DISPOSABLE, (UNIFINE PENTIPS) 31 gauge x 5/16 ndle Inject 1 Each subcutaneously four times daily. ketoconazole (NIZORAL) 2 % cream Apply 1 application to affected area once daily. as needed to corners of lips and other rash as directed Lactobacillus acidophilus (PROBIOTIC) 10 billion cell cap Take 2 tablets by mouth daily at bedtime. levothyroxine (LEVOXYL) 100 mcg tablet Take 1 tablet by mouth daily before breakfast. lisinopril (PRINIVIL) 10 mg tablet Take 1 tablet by mouth once daily. loratadine (CLARITIN) 10 mg tablet Take 1 tablet by mouth once daily. melatonin 1 mg tablet Take 1 tablet by mouth daily at bedtime. Miscellaneous Medical Supply [facility] CUSTOM JOBST KNEE HI COMPRESSION STOCKING 30-40MM/HG. Dispense 2 pair Diagnosis:(I87.2) Venous insufficiency of both lower extremities; (R60.9) Edema multivitamin with minerals (HAIR,SKIN AND NAILS) tablet Take 1 tablet by mouth three times daily. nystatin (MYCOSTATIN) 100,000 unit/mL suspension 1 tsp swish and swallow until gone, 4 times daily nystatin (MYCOSTATIN) cream Apply 1 application to affected area twice daily. As needed [place]-3 Fatty Acids-Vitamin E (FISH OIL) 1,000 mg cap Take 1 capsule by mouth three times daily. Omeprazole 40 mg capsule Take 1 capsule by mouth once daily. ondansetron (ZOFRAN) 4 mg tablet Take 1 tablet by mouth every 8 hours as needed for Nausea/Vomiting. QUEtiapine (SEROQUEL) 25 mg tablet Take 1 tablet by mouth twice daily. rOPINIRole (REQUIP) 1 mg tablet Take 1 tablet by mouth four times daily. As directed sucralfate (CARAFATE) 100 mg/mL suspension Take 10 mL by mouth four times daily as needed. As directed (usually before meals and bedtime as needed) tiZANidine (ZANAFLEX) 2 mg tablet Take 1 tablet by mouth every 8 hours as needed (muscle spasms, neck pain and headache). May make drowsy topiramate (TOPAMAX) 100 mg tablet Take 100 mg by mouth twice daily. topiramate (TOPAMAX) 50 mg tablet Take 1 tablet by mouth three times daily. for headache triamcinolone acetonide (KENALOG) 0.1 % cream Apply 1 application to affected area three times daily as needed (itchy rash/psoriasis on hands). Apply sparingly verapamil (CALAN, ISOPTIN) 40 mg tablet Take 1 tablet by mouth three times daily. vitamin b complex (B COMPLETE) tab Take 1 tablet by mouth once daily. warfarin (COUMADIN) 5 mg tablet Take 1 tablet by mouth once daily. SHENG - 7.5mg , wed and 5mg all other days or as directed warfarin (COUMADIN) 7.5 mg tablet Take 1 tablet by mouth daily as directed. budesonide-formoterol (SYMBICORT) 160-4.5 mcg/actuation inhaler Inhale 2 Puffs as instructed twice daily. (Patient not taking: Reported on 10/22/2018 ) dextromethorphan (DELSYM) 30 mg/5 mL liquid Take 10 mL by mouth twice daily. for cough oseltamivir (TAMIFLU) 75 mg capsule Take 1 capsule by mouth twice daily for 5 days. No current facility-administered medications for this visit. Assessment and Plan 1. Flu-like symptoms - ICD9: 780.99, ICD10: R68.89 (primary diagnosis) - RESP VIRUS PANEL BY PCR 2. Cough - ICD9: 786.2, ICD10: R05 - DEXTROMETHORPHAN POLISTIREX ER 30 MG/5 ML ORAL SUSP EXT.RELEASE 12HR She reports eating and drinking normally. She has not been checking blood sugar, without current symptoms off running low or high Recommend she check blood sugars at least daily She should let us know if unable to maintain eating and drinking normally or difficulties with sugars running low or high or if she is not feeling improved with treatment. Provided with information about influenza care?up-to-date. She has a follow-up appointment next week. Trish Ramírez APRN.CNS November 08, 2018 CNOV Observed: 11/08/2018 Status: COMPLETED Source: [place] 11:20 AM [facility] REPOSITORY Office Visit (INTMWS) DEBORA MEYERS ([id number]) 1965 F Date Time Provider Department 11/08/18 11:20 AM TRISH RAMÍREZ ([facility]) INTMWS During your visit today, we recorded the following information about you: Temperature Pulse Respiration Blood pressure 99 degrees 88/minute 16/minute 104/62 Weight 125.2 kg Trish Ramírez APRN.CNS 11/08/2018 12:07 PM Signed This note was created using [employer]. Subjective Debora Meyers is a 53 year old female. She presents today with report of headache body aches and fever starting yesterday morning, sore throat and productive cough. Eyes feel watery and lips are chapped. Perceived fever. No sick contacts. Has been taking Tylenol with some relief. Review of Systems Constitutional: Positive for chills, fatigue and fever. HENT: Negative for congestion, ear pain, postnasal drip, sinus pain, sinus pressure and sore throat. Respiratory: Negative for shortness of breath and wheezing. Cardiovascular: Negative for chest pain. Musculoskeletal: Positive for myalgias. Skin: Negative for color change. Neurological: Positive for headaches. Hematological: Negative for adenopathy. Objective BP 104/62 (BP Site: Right Arm, BP Position: Sitting, BP Cuff Size: Regular Adult) Pulse 88 Temp 37.2 ?C (99 ?F) Resp 16 Wt 125.2 kg (276 lb) SpO2 92% BMI 53.90 kg/m? Physical Exam Constitutional: She is oriented to person, place, and time. She appears well-developed. HENT: Head: Normocephalic and atraumatic. Right Ear: Tympanic membrane, external ear and ear canal normal. Left Ear: Tympanic membrane, external ear and ear canal normal. Nose: No rhinorrhea or sinus tenderness. Right sinus exhibits no maxillary sinus tenderness and no frontal sinus tenderness. Left sinus exhibits no maxillary sinus tenderness and no frontal sinus tenderness. Mouth/Throat: Oropharynx is clear and moist and mucous membranes are normal. Tonsils are 0 on the right. Tonsils are 0 on the left. No tonsillar exudate. Eyes: Conjunctivae are normal. Cardiovascular: Normal rate. Pulmonary/Chest: Effort normal and breath sounds normal. Neurological: She is alert and oriented to person, place, and time. Skin: Skin is warm and dry. Nursing note and vitals reviewed. HISTORIES FAMILY HISTORY Problem Relation Age of Onset - Adopted: Yes - None Mother - Alcohol/Drug Father - None Sister BOWEL PROBLEMS PAST MEDICAL HISTORY Diagnosis Date - Allergic rhinitis used to receive allergy shots from Dr. Brown - Alopecia, unspecified 08/29/2012 - Anticoagulated on Coumadin INR goal 3.0 to 4.0 - Anxiety - Asthma - Benign neoplasm of stomach - Bipolar disorder, unspecified 08/29/2012 - Diabetes mellitus type 2, controlled, without complications (HCC) 08/12/2007 In records from treatment after elevated sugars in 2001 during hospital stay; no longer on any meds and sugars have been fine--either normal or just in impaired fasting glucose level - Embolism and thrombosis (HCC) 08/14/2005 - Environmental allergies 01/17/2012 - Exostosis of unspecified site 09/27/2010 - Fibromyalgia - Goiter, unspecified - Hypothyroidism 10/28/2009 - Nausea alone - Obesity - STACY treated with BiPAP [facility] supplier - Other diseases of lung, not elsewhere classified - Other hammer toe (acquired) 09/27/2010 - RA (rheumatoid arthritis) (HCC) - 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 also elevated BMI . RECOMMENDATIONS are 1.weight loss.2. not seen significant sleep apnea however absense or REM sleep sleep apnea may be understimated.Extrinsic factors leading to excessive daytime somnolence such as mood disturbances and or medication effect may be a factor PAST SURGICAL HISTORY Procedure Laterality Date - COLONOSCOP W/ OR W/O [facility] SPEC 03-06-13 Colonoscopy - EGD W/O OR W/BRUSH/WASH 02/25/2007 EGD - EGD W/O OR W/BRUSH/WASH 11/03/2011 EGD - PAST SURGICAL HISTORY OF [place] except cervix was left in; complicated with wound infection; [facility] - PAST SURGICAL HISTORY OF fundoplication May 1991 - PAST SURGICAL HISTORY OF right foot surgery on achilles tendon - PAST SURGICAL HISTORY OF 09/16/13 bone spur removed from right foot - PAST SURGICAL HISTORY OF 08/2014 [facility] - PULMONARY FUNCTION TEST 05/04/05 - REMOVAL ADENOIDS,PRIMARY,<12 Y/O Adenoidectomy - REMOVAL GALLBLADDER 1990 Cholecystectomy - REMOVAL OF TONSILS,<12 Y/O Tonsillectomy - TOTAL ABDOM HYSTERECTOMY 2008 polycystic ovaries - UVULECTOMY EXCISION OF UVULA 2004 Social History Marital status: Spouse name: Louis Years of education: Number of children: 0 Social History Main Topics Smoking status: Never Smoker Smokeless tobacco: Never Used Comment: Parents briefly smoked in childhood home. Alcohol use: No Drug use: No Sexual activity: Yes Partners with: Male control/protection: Condom Social History Narrative Birds in home. Basement occasionally wet. ALLERGIES Allergen Reactions - Environmental [Othe* Rash, Cough - Vitamin K Swelling - Cholestyramine Other: See Comments constipation - Ibuprofen Diarrhea - Macrobid [Nitrofura* Rash states that broke out all over with rash last time was given this in September 2010 - Peroxide [Other] Intolerance - Sulfa (Sulfonamide * Rash - Tylenol [Acetaminop* Vomiting Nausea Current Outpatient Prescriptions: adalimumab (HUMIRA) 40 mg/0.8 mL injection Inject 40 mg subcutaneously one time only. albuterol (PROVENTIL) 2.5 mg /3 mL (0.083 %) nebulizer solution Use 3 mL via nebulizer every 6 hours as needed. albuterol HFA (PROAIR HFA) 90 mcg/actuation inhaler Inhale 2 Puffs as instructed every 4 hours as needed for Wheezing/Shortness of Breath. albuterol HFA (PROVENTIL HFA, VENTOLIN HFA) 90 mcg/actuation inhaler Inhale 2 Puffs as instructed every 4 hours as needed (for cough, wheezing, chest tightness or shortness of breath. Use with spacer. ). Alpha Lipoic Acid 600 mg cap Take 1 capsule by mouth twice daily. alpha tocopheryl acetate (VITAMIN E) 400 unit capsule Take 2 capsules by mouth once daily. atorvastatin (LIPITOR) 10 mg tablet Take 1 tablet by mouth daily at bedtime. For cholesterol. Blood Pressure Test Kit-Wrist kit Use to check blood pressure once daily as directed DX:I10 blood sugar diagnostic (TRUE METRIX GLUCOSE TEST STRIP) test strip Test blood sugar 4 x daily. Dx: E11.22. Insulin use: Yes CALCIUM CARB/MAGNESIUM OX,CARB (YASMINE-MAG ORAL) Take by mouth. cephALEXin (KEFLEX) 500 mg capsule Take 1 capsule by mouth four times daily for 10 days. Take with food Cetirizine (ZYRTEC) 10 mg cap Take by mouth daily at bedtime. Chlorhexidine Gluconate (PERIDEX) 0.12 % solution Take 15 mL by mouth twice daily. as needed for tooth / mouth pain cholecalciferol (VITAMIN D3) 5,000 unit tab Take 1 tablet by mouth once daily. clonazePAM (KLONOPIN) 1 mg tablet Take 0.5-1 tablets by mouth daily at bedtime for 90 days. COMPOUNDED PRESCRIPTION Decrease BiPAP settings to 11/5 cmH2O. Diagnosis G47.33 COMPOUNDED PRESCRIPTION Morphine 15 mg per pump filled every [address] Wetzel COMPOUNDED PRESCRIPTION SHOWER CHAIR WITH BACK DX M06.9 I74.9 COMPOUNDED PRESCRIPTION SUCTION STYLE GRAB BAR FOR SHOWER WALL INSTALLATION DX M 06.9 I 74.9 COUMADIN 1 mg tablet take 5mg daily except for Sunday, take 7.5 mg on Sunday or as directedDO NOT SUBSITUTE WITH GENERIC. dicyclomine (BENTYL) 10 mg capsule Take 1 capsule by mouth four times daily as needed (cramping pains and urgency with bowels). enoxaparin (LOVENOX) 40 mg/0.4 mL syrg 40 mg subcutaneous every 12 hours starting August 12 in the morning; take only the morning dose August 14; do not take August 15 (day of procedure); resume 40 mg every 12 hours starting evening of August 16 ; continue until INR therapeutic escitalopram oxalate (LEXAPRO) 20 mg tablet Take 1 tablet by mouth once daily. fluticasone (FLONASE) 50 mcg/actuation nasal spray Use 1-2 Sprays in each nostril once daily. fluticasone-vilanterol (BREO ELLIPTA) 200-25 mcg/dose inhaler Inhale 1 Inhalation as instructed once daily. Hydrochlorothiazide 12.5 mg capsule Take 1 capsule by mouth once daily. hydroxychloroquine (PLAQUENIL) 200 mg tablet Take 1 tablet by mouth once daily. insulin glargine (LANTUS SOLOSTAR U-100 INSULIN) 100 unit/mL (3 mL) inpn Inject 12 Units subcutaneously twice daily. insulin lispro (HUMALOG KWIKPEN INSULIN) 100 unit/mL inpn Inject 10 Units subcutaneously w MEALS. Three times daily insulin needles, DISPOSABLE, (BD INSULIN PEN NEEDLE UF) 31 gauge x 5/16 ndle Use with insulin pens 5 times daily, or as directed, Dx: E11.22 insulin needles, DISPOSABLE, (UNIFINE PENTIPS) 31 gauge x 5/16 ndle Inject 1 Each subcutaneously four times daily. ketoconazole (NIZORAL) 2 % cream Apply 1 application to affected area once daily. as needed to corners of lips and other rash as directed Lactobacillus acidophilus (PROBIOTIC) 10 billion cell cap Take 2 tablets by mouth daily at bedtime. levothyroxine (LEVOXYL) 100 mcg tablet Take 1 tablet by mouth daily before breakfast. lisinopril (PRINIVIL) 10 mg tablet Take 1 tablet by mouth once daily. loratadine (CLARITIN) 10 mg tablet Take 1 tablet by mouth once daily. melatonin 1 mg tablet Take 1 tablet by mouth daily at bedtime. [facility] CUSTOM JOBST KNEE HI COMPRESSION STOCKING 30-40MM/HG. Dispense 2 pair Diagnosis:(I87.2) Venous insufficiency of both lower extremities; (R60.9) Edema multivitamin with minerals (HAIR,SKIN AND NAILS) tablet Take 1 tablet by mouth three times daily. nystatin (MYCOSTATIN) 100,000 unit/mL suspension 1 tsp swish and swallow until gone, 4 times daily nystatin (MYCOSTATIN) cream Apply 1 application to affected area twice daily. As needed [place]-3 Fatty Acids-Vitamin E (FISH OIL) 1,000 mg cap Take 1 capsule by mouth three times daily. Omeprazole 40 mg capsule Take 1 capsule by mouth once daily. ondansetron (ZOFRAN) 4 mg tablet Take 1 tablet by mouth every 8 hours as needed for Nausea/Vomiting. QUEtiapine (SEROQUEL) 25 mg tablet Take 1 tablet by mouth twice daily. rOPINIRole (REQUIP) 1 mg tablet Take 1 tablet by mouth four times daily. As directed sucralfate (CARAFATE) 100 mg/mL suspension Take 10 mL by mouth four times daily as needed. As directed (usually before meals and bedtime as needed) tiZANidine (ZANAFLEX) 2 mg tablet Take 1 tablet by mouth every 8 hours as needed (muscle spasms, neck pain and headache). May make drowsy topiramate (TOPAMAX) 100 mg tablet Take 100 mg by mouth twice daily. topiramate (TOPAMAX) 50 mg tablet Take 1 tablet by mouth three times daily. for headache triamcinolone acetonide (KENALOG) 0.1 % cream Apply 1 application to affected area three times daily as needed (itchy rash/psoriasis on hands). Apply sparingly verapamil (CALAN, ISOPTIN) 40 mg tablet Take 1 tablet by mouth three times daily. vitamin b complex (B COMPLETE) tab Take 1 tablet by mouth once daily. warfarin (COUMADIN) 5 mg tablet Take 1 tablet by mouth once daily. SHENG - 7.5mg tues, wed and 5mg all other days or as directed warfarin (COUMADIN) 7.5 mg tablet Take 1 tablet by mouth daily as directed. budesonide-formoterol (SYMBICORT) 160-4.5 mcg/actuation inhaler Inhale 2 Puffs as instructed twice daily. (Patient not taking: Reported on 10/22/2018 ) dextromethorphan (DELSYM) 30 mg/5 mL liquid Take 10 mL by mouth twice daily. for cough oseltamivir (TAMIFLU) 75 mg capsule Take 1 capsule by mouth twice daily for 5 days. No current facility-administered medications for this visit. Assessment and Plan 1. Flu-like symptoms - ICD9: 780.99, ICD10: R68.89 (primary diagnosis) - RESP VIRUS PANEL BY PCR 2. Cough - ICD9: 786.2, ICD10: R05 - DEXTROMETHORPHAN POLISTIREX ER 30 MG/5 ML ORAL SUSP EXT.RELEASE 12HR She reports eating and drinking normally. She has not been checking blood sugar, without current symptoms off running low or high Recommend she check blood sugars at least daily She should let us know if unable to maintain eating and drinking normally or difficulties with sugars running low or high or if she is not feeling improved with treatment. Provided with information about influenza care?up-to-date. She has a follow-up appointment next week. Trish Ramírez APRN.HISTOLOGY TEACHER November 08, 2018 Referring Provider: SELF [200] Allergies As of Date: 11/08/2018 Noted Allergy Reaction environmental [Other] 07/14/2005 2 - Rash 3 - Cough VITAMIN K 07/14/2005 7 - Swelling CHOLESTYRAMINE 03/31/2013 14 - Other: See Comments Comments: constipation IBUPROFEN 06/29/2009 6 - Diarrhea MACROBID (NITROFURANTOIN MONOHYD/*12/06/2010 2 - Rash Comments: states that broke out all over with rash last time was given this in September 2010 peroxide [Other] 07/14/2005 5 - Intolerance SULFA (SULFONAMIDE ANTIBIOTICS) 02/05/2013 2 - Rash TYLENOL (ACETAMINOPHEN) 03/17/2014 11 - Vomiting Comments: Nausea Date Reviewed: 11/08/2018 Reviewed by: Portia Bennett LPN - Fully Assessed Reason for Visit: URI [115] Primary Visit Diagnosis:Flu-like symptoms [R68.89] Other Visit Diagnosis:Cough [R05] Order(s):RESP VIRUS PANEL BY PCR [SQRVPAN] Order #: [id number] oseltamivir (TAMIFLU) 75 mg capsuleTake 1 capsule by mouth twice daily for 5 days.Disp: 10 capsuleRfl: 0 dextromethorphan (DELSYM) 30 mg/5 mL liquidTake 10 mL by mouth twice daily. for coughDisp: 148 mLRfl: 1 Prescriptions as of 11/08/2018 Sig: ADALIMUMAB 40 MG/0.8 ML SUBCU* Inject 40 mg subcutaneously o* ALBUTEROL SULFATE 2.5 MG/3 ML* Use 3 mL via nebulizer every * ALBUTEROL SULFATE HFA 90 MCG/* Inhale 2 Puffs as instructed * ALBUTEROL SULFATE HFA 90 MCG/* Inhale 2 Puffs as instructed * ALPHA LIPOIC ACID 600 MG CAPS* Take 1 capsule by mouth twice* VITAMIN E 400 UNIT CAPSULE Take 2 capsules by mouth once* ATORVASTATIN 10 MG TABLET Take 1 tablet by mouth daily * BLOOD PRESSURE TEST KIT-WRIST* Use to check blood pressure o* BLOOD SUGAR DIAGNOSTIC STRIPS Test blood sugar 4 x daily. D* YASMINE-MAG ORAL Take by mouth. CEPHALEXIN 500 MG CAPSULE Take 1 capsule by mouth four * CETIRIZINE 10 MG CAPSULE Take by mouth daily at bedtim* CHLORHEXIDINE GLUCONATE 0.12 * Take 15 mL by mouth twice trista* CHOLECALCIFEROL (VITAMIN D3) * Take 1 tablet by mouth once d* CLONAZEPAM 1 MG TABLET Take 0.5-1 tablets by mouth d* COMPOUNDED PRESCRIPTION Decrease BiPAP settings to 11* COMPOUNDED PRESCRIPTION Morphine 15 mg per pump fille* COMPOUNDED PRESCRIPTION SHOWER CHAIR WITH BACK D* COMPOUNDED PRESCRIPTION SUCTION STYLE GRAB BAR FOR SH* COUMADIN 1 MG TABLET take 5mg daily except for Sun* DICYCLOMINE 10 MG CAPSULE Take 1 capsule by mouth four * ENOXAPARIN 40 MG/0.4 ML SUBCU* 40 mg subcutaneous every 12 h* ESCITALOPRAM 20 MG TABLET Take 1 tablet by mouth once d* FLUTICASONE 50 MCG/ACTUATION * Use 1-2 Sprays in each nostri* FLUTICASONE 200 MCG-VILANTERO* Inhale 1 Inhalation as instru* HYDROCHLOROTHIAZIDE 12.5 MG C* Take 1 capsule by mouth once * HYDROXYCHLOROQUINE 200 MG TAB* Take 1 tablet by mouth once d* INSULIN GLARGINE (U-100) 100 * Inject 12 Units subcutaneousl* INSULIN LISPRO (U-100) 100 UN* Inject 10 Units subcutaneousl* PEN NEEDLE, DIABETIC 31 GAUGE* Use with insulin pens 5 times* PEN NEEDLE, DIABETIC 31 GAUGE* Inject 1 Each subcutaneously * KETOCONAZOLE 2 % TOPICAL CREAM Apply 1 application to affect* LACTOBACILLUS ACIDOPHILUS 10 * Take 2 tablets by mouth daily* LEVOTHYROXINE 100 MCG TABLET Take 1 tablet by mouth daily * LISINOPRIL 10 MG TABLET Take 1 tablet by mouth once d* LORATADINE 10 MG TABLET Take 1 tablet by mouth once d* MELATONIN 1 MG TABLET Take 1 tablet by mouth daily * MISCELLANEOUS MEDICAL SUPPLY * CUSTOM JOBST KNEE HI KIRSTY* MULTIVITAMIN WITH MINERALS TA* Take 1 tablet by mouth three * NYSTATIN 100,000 UNIT/ML ORAL* 1 tsp swish and swallow until* NYSTATIN 100,000 UNIT/GRAM TO* Apply 1 application to affect* OMEGA-3 FATTY ACIDS-VITAMIN E* Take 1 capsule by mouth three* OMEPRAZOLE 40 MG CAPSULE,LALITO* Take 1 capsule by mouth once * ONDANSETRON HCL 4 MG TABLET Take 1 tablet by mouth every * QUETIAPINE 25 MG TABLET Take 1 tablet by mouth twice * ROPINIROLE 1 MG TABLET Take 1 tablet by mouth four t* SUCRALFATE 100 MG/ML ORAL BART* Take 10 mL by mouth four time* TIZANIDINE 2 MG TABLET Take 1 tablet by mouth every * TOPIRAMATE 100 MG TABLET Take 100 mg by mouth twice da* TOPIRAMATE 50 MG TABLET Take 1 tablet by mouth three * TRIAMCINOLONE ACETONIDE 0.1 %* Apply 1 application to affect* VERAPAMIL 40 MG TABLET Take 1 tablet by mouth three * VITAMIN B COMPLEX TABLET Take 1 tablet by mouth once d* WARFARIN 5 MG TABLET Take 1 tablet by mouth once d* WARFARIN 7.5 MG TABLET Take 1 tablet by mouth daily * BUDESONIDE-FORMOTEROL HFA 160* Inhale 2 Puffs as instructed * Patient not taking: Reported on 10/22/2018 DEXTROMETHORPHAN POLISTIREX E* Take 10 mL by mouth twice trista* OSELTAMIVIR 75 MG CAPSULE Take 1 capsule by mouth twice* Problem List As Of Date 11/08/2018 Noted Resolved OTHER LUNG DISEASE NEC [J98.4] Asthma [J45.909] OTHER UNSPEC SLEEP APNEA [G47.30] Dysmetabolic syndrome X [E88.81] 09/11/2011 Fibromyalgia [M79.7] Embolism and thrombosis (HCC) [I74.9] INVALID FOR*05/05/2018 GOITER NOS [E04.9] REFLUX ESOPHAGITIS [K21.0] NAUSEA ALONE [R11.0] ACUTE GASTRITIS W/O HEMORRHAGE [K29.00] INVALID FOR* CONSTIPATION NOS [K59.00] INVALID FOR* More... 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 Obstructive Sleep Apnea [G47.33] INVALID FOR* More... Hypothyroidism [E03.9] INVALID FOR* Exostosis of unspecified site [M89.8X9] INVALID FOR*11/27/2017 Other hammer toe (acquired) [M20.40] INVALID FOR*11/27/2017 Hx of hysterectomy [Z90.710] INVALID FOR* More... Allergic rhinitis [J30.9] More... 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] INVALID FOR* Environmental allergies [Z91.09] INVALID FOR*11/27/2017 Morbid obesity due to excess calories (HCC) [E6* Chronic kidney disease, stage III (moderate) [N*INVALID FOR*11/27/2017 Essential hypertension [I10] INVALID FOR* Nephrolithiasis [N20.0] INVALID FOR* Vitamin D deficiency [E55.9] INVALID FOR* Rheumatoid arthritis (HCC) [M06.9] INVALID FOR* Bipolar disorder, unspecified [F31.9] INVALID FOR* Alopecia, unspecified [L65.9] INVALID FOR*11/27/2017 Personal history of pulmonary embolism [Z86.711]INVALID FOR* Irritable bowel syndrome [K58.9] INVALID FOR* Neuropathy [G62.9] INVALID FOR* Incisional hernia [K43.2] INVALID FOR* Polycythemia, secondary [D75.1] INVALID FOR* Anticoagulated on Coumadin [Z51.81, Z79.01] INVALID FOR* STACY treated with BiPAP [G47.33] More... Type 2 DM with CKD stage 3 and hypertension (HC*INVALID FOR* Polypharmacy [Z79.899] INVALID FOR* Noncompliance with treatment [Z91.19] INVALID FOR* CKD (chronic kidney disease) stage 4, GFR 15-29*INVALID FOR*08/26/2017 Nonallergic rhinitis [J31.0] INVALID FOR* History of deep vein thrombosis [Z86.718] INVALID FOR* Hypoxemia [R09.02] INVALID FOR* More... Acute kidney injury superimposed on chronic kid*INVALID FOR* Metabolic encephalopathy [G93.41] INVALID FOR* Hyperkalemia [E87.5] INVALID FOR* Abdominal pannus [E65] INVALID FOR* Anxiety [F41.9] Prescriptions ordered this encounter Disp Refills Start End OSELTAMIVIR 75 MG CAPSULE 10 c* 0 11/08/2018 11/13/2018 Route: ORAL Sig: Take 1 capsule by mouth twice daily for 5 days. DEXTROMETHORPHAN POLISTIREX ER 30 MG* 148 * 1 11/08/2018 Route: ORAL Sig: Take 10 mL by mouth twice daily. for cough Medications Discontinued During This Encounter Benzonatate 200 mg capsule 30 c* 0 11/27/2017 11/08/2018 Route: ORAL Sig: Take 1 capsule by mouth three times daily as needed. Disc: Reason for discontinue is not on file. Encounter Status:Closed by TRISH JACKSON on 11/08/18 PROTEIN+CREATININE Collected: Status: F Source: [facility],URINE 11/05/2018 1:16 PM [facility] REPOSITORY TYPE CODE TESTS RESULT OUT OF RANGE REFERENCE UNITS LAB L501.1200 NO RANGE EST. mg/dL Normal UR CREAT 80.90 LAB L501.1930 <11.9 mg/dL High 96.2 PROTEIN,UR.R AN. LAB L501.1940 0-200 mg/g CRE High PROT:CRE 1189 RATIO Performed By: #### L501.0900 #### [facility] [address] [place], [address] RENAL PROFILE Collected: 11/05/2018 Status: F Source: [place] 1:16 PM [facility] REPOSITORY TYPE CODE TESTS RESULT OUT OF RANGE REFERENCE UNITS LAB L501.0100 74-106 mg/dL High GLU 211 Result Comment: Glucose result greater than or equal to 200 mg/dL suggests DIABETES MELLITUS per A.D.A. criteria. Please note revised GLUCOSE reference range effective 2017. LAB L501.1000 7-18 mg/dL High BUN 39 LAB L501.1100 0.55-1.02 mg/dL High CREAT,SERUM 1.99 Result Comment: The validity of the calculated GFR AND GFRAA in patients over 70 years has not been determined. Clinical correlation is essential. LAB L501.1110 >60 mL/min Low EST GFR 28 Result Comment: Non- GFR Calc LAB L501.1115 >60 mL/min Low EST GFR - AA 34 Result Comment: GFR Calc LAB L501.1300 10-20 RATIO Normal BUN/CRE 19.6 LAB L501.1800 3.2-5.0 g/dL Normal ALB 3.4 LAB L501.2200 8.5-10.1 mg/dL CA Normal 9.2 LAB L501.2300 2.5-4.9 mg/dL Normal PHOS 4.3 LAB L501.5300 136-145 mmol/L NA Normal 143 LAB L501.5600 3.5-5.1 mmol/L K Normal 4.5 LAB L501.5900 98-107 mmol/L High CL 109 LAB L501.6100 21.0-32.0 mmol/L Normal CO2 24.0 Performed By: #### L500.3600 #### [facility] [address] [place], [address] PROGRESS Observed: 11/04/2018 Status: COMPLETED Source: [place] 5:54 PM [facility] [place] REPOSITORY HNO ID: [id number] Author: Krystal Parish RN Service: (none) Author Type: (none) Type: Progress Notes Filed: 11/04/2018 5:54 PM Note Text: Spoke with patient. Given message from provider's office. Patient verbalizes understanding. Verified by teach back. Krystal Parish RN PROGRESS Observed: 11/04/2018 Status: COMPLETED Source: [place] 5:06 PM [facility] REPOSITORY HNO ID: [id number] Author: Sheeba King RN Service: (none) Author Type: (none) Type: Progress Notes Filed: 11/04/2018 5:07 PM Note Text: per written order by dr scott patient is to take 7.5mg Mon, Sun,Sun and and 5mg all other days and recheck on the as scheduled left message for patient to contact office for results. PROGRESS Observed: 11/04/2018 Status: COMPLETED Source: [place] 3:59 PM [facility] REPOSITORY HNO ID: [id number] Author: Karli Regalado (Pa) Service: (none) Author Type: Physician Junior Recruiter Type: Progress Notes Filed: 11/04/2018 4:07 PM Note Text: Subjective HPI Patient presents with the chief complaint of left knee pain. States she had fallen about a month ago and landed on the knee. She feels like when she moves it it comes apart. She has been walking on it. She is also little bit of swelling over the past couple of days. She is going out of town for [place] and wanted to make sure nothing was wrong with it. She does have a follow-up appointment with Dr. Beckett on November 18. She has been taking Tylenol for pain which does help. She's also been icing which also helped. Review of Systems Musculoskeletal: Left knee pain All other systems reviewed and are negative. PAST MEDICAL HISTORY Diagnosis Date - Allergic rhinitis used to receive allergy shots from Dr. Brown - Alopecia, unspecified 08/29/2012 - Anticoagulated on Coumadin INR goal 3.0 to 4.0 - Anxiety - Asthma - Benign neoplasm of stomach - Bipolar disorder, unspecified 08/29/2012 - Diabetes mellitus type 2, controlled, without complications (HCC) 08/12/2007 In records from treatment after elevated sugars in 2001 during hospital stay; no longer on any meds and sugars have been fine--either normal or just in impaired fasting glucose level - Embolism and thrombosis (HCC) 08/14/2005 - Environmental allergies 01/17/2012 - Exostosis of unspecified site 09/27/2010 - Fibromyalgia - Goiter, unspecified - Hypothyroidism 10/28/2009 - Nausea alone - Obesity - STACY treated with BiPAP [facility] supplier - Other diseases of lung, not elsewhere classified - Other hammer toe (acquired) 09/27/2010 - RA (rheumatoid arthritis) (HCC) - 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 also elevated BMI . RECOMMENDATIONS are 1.weight loss.2. not seen significant sleep apnea however absense or REM sleep sleep apnea may be understimated.Extrinsic factors leading to excessive daytime somnolence such as mood disturbances and or medication effect may be a factor Current Outpatient Prescriptions: adalimumab (HUMIRA) 40 mg/0.8 mL injection Inject 40 mg subcutaneously one time only. Disp: Rfl: albuterol (PROVENTIL) 2.5 mg /3 mL (0.083 %) nebulizer solution Use 3 mL via nebulizer every 6 hours as needed. Disp: 50 Vial Rfl: 3 albuterol HFA (PROAIR HFA) 90 mcg/actuation inhaler Inhale 2 Puffs as instructed every 4 hours as needed for Wheezing/Shortness of Breath. Disp: 1 Inhaler Rfl: 11 albuterol HFA (PROVENTIL HFA, VENTOLIN HFA) 90 mcg/actuation inhaler Inhale 2 Puffs as instructed every 4 hours as needed (for cough, wheezing, chest tightness or shortness of breath. Use with spacer. ). Disp: 1 Inhaler Rfl: 2 Alpha Lipoic Acid 600 mg cap Take 1 capsule by mouth twice daily. Disp: 60 capsule Rfl: 5 alpha tocopheryl acetate (VITAMIN E) 400 unit capsule Take 2 capsules by mouth once daily. Disp: Rfl: atorvastatin (LIPITOR) 10 mg tablet Take 1 tablet by mouth daily at bedtime. For cholesterol. Disp: 30 tablet Rfl: 11 Benzonatate 200 mg capsule Take 1 capsule by mouth three times daily as needed. Disp: 30 capsule Rfl: 0 Blood Pressure Test Kit-Wrist kit Use to check blood pressure once daily as directed DX:I10 Disp: 1 Kit Rfl: 0 blood sugar diagnostic (TRUE METRIX GLUCOSE TEST STRIP) test strip Test blood sugar 4 x daily. Dx: E11.22. Insulin use: Yes Disp: 150 Strip Rfl: 11 budesonide-formoterol (SYMBICORT) 160-4.5 mcg/actuation inhaler Inhale 2 Puffs as instructed twice daily. (Patient not taking: Reported on 10/22/2018 ) Disp: 1 Inhaler Rfl: 12 CALCIUM CARB/MAGNESIUM OX,CARB (YASMINE-MAG ORAL) Take by mouth. Disp: Rfl: Cetirizine (ZYRTEC) 10 mg cap Take by mouth daily at bedtime. Disp: Rfl: Chlorhexidine Gluconate (PERIDEX) 0.12 % solution Take 15 mL by mouth twice daily. as needed for tooth / mouth pain Disp: 118 mL Rfl: 1 cholecalciferol (VITAMIN D3) 5,000 unit tab Take 1 tablet by mouth once daily. Disp: 90 tablet Rfl: 1 clonazePAM (KLONOPIN) 1 mg tablet Take 0.5-1 tablets by mouth daily at bedtime for 90 days. Disp: 30 tablet Rfl: 1 COMPOUNDED PRESCRIPTION Decrease BiPAP settings to 11/5 cmH2O. Diagnosis G47.33 Disp: 1 Each Rfl: 0 COMPOUNDED PRESCRIPTION Morphine 15 mg per pump filled every [address] Wetzel Disp: Rfl: 0 COMPOUNDED PRESCRIPTION SHOWER CHAIR WITH BACK DX M06.9 I74.9 Disp: 1 Each Rfl: 0 COMPOUNDED PRESCRIPTION SUCTION STYLE GRAB BAR FOR SHOWER WALL INSTALLATION DX M 06.9 I 74.9 Disp: 1 Each Rfl: 0 COUMADIN 1 mg tablet take 5mg daily except for Sunday, take 7.5 mg on Sunday or as directedDO NOT SUBSITUTE WITH GENERIC. Disp: Rfl: 0 dicyclomine (BENTYL) 10 mg capsule Take 1 capsule by mouth four times daily as needed (cramping pains and urgency with bowels). Disp: 120 capsule Rfl: 11 enoxaparin (LOVENOX) 40 mg/0.4 mL syrg 40 mg subcutaneous every 12 hours starting August 12 in the morning; take only the morning dose August 14; do not take August 15 (day of procedure); resume 40 mg every 12 hours starting evening of August 16 ; continue until INR therapeutic Disp: 10 Syringe Rfl: 1 escitalopram oxalate (LEXAPRO) 20 mg tablet Take 1 tablet by mouth once daily. Disp: Rfl: 0 fluticasone (FLONASE) 50 mcg/actuation nasal spray Use 1-2 Sprays in each nostril once daily. Disp: 1 Bottle Rfl: 10 fluticasone-vilanterol (BREO ELLIPTA) 200-25 mcg/dose inhaler Inhale 1 Inhalation as instructed once daily. Disp: 1 Each Rfl: 11 Hydrochlorothiazide 12.5 mg capsule Take 1 capsule by mouth once daily. Disp: 30 capsule Rfl: 0 hydroxychloroquine (PLAQUENIL) 200 mg tablet Take 1 tablet by mouth once daily. Disp: Rfl: 0 insulin glargine (LANTUS SOLOSTAR U-100 INSULIN) 100 unit/mL (3 mL) inpn Inject 12 Units subcutaneously twice daily. Disp: 5 Pen Rfl: 5 insulin lispro (HUMALOG KWIKPEN INSULIN) 100 unit/mL inpn Inject 10 Units subcutaneously w MEALS. Three times daily Disp: 10 Pen Rfl: 11 insulin needles, DISPOSABLE, (BD INSULIN PEN NEEDLE UF) 31 gauge x 5/16 ndle Use with insulin pens 5 times daily, or as directed, Dx: E11.22 Disp: 500 Each Rfl: 11 insulin needles, DISPOSABLE, (UNIFINE PENTIPS) 31 gauge x 5/16 ndle Inject 1 Each subcutaneously four times daily. Disp: 400 Each Rfl: 3 ketoconazole (NIZORAL) 2 % cream Apply 1 application to affected area once daily. as needed to corners of lips and other rash as directed Disp: 60 g Rfl: 0 Lactobacillus acidophilus (PROBIOTIC) 10 billion cell cap Take 2 tablets by mouth daily at bedtime. Disp: Rfl: levothyroxine (LEVOXYL) 100 mcg tablet Take 1 tablet by mouth daily before breakfast. Disp: 30 tablet Rfl: 11 lisinopril (PRINIVIL) 10 mg tablet Take 1 tablet by mouth once daily. Disp: 30 tablet Rfl: 11 loratadine (CLARITIN) 10 mg tablet Take 1 tablet by mouth once daily. Disp: 30 tablet Rfl: 11 melatonin 1 mg tablet Take 1 tablet by mouth daily at bedtime. Disp: Rfl: Miscellaneous Medical Supply [facility] CUSTOM JOBST KNEE HI COMPRESSION STOCKING 30-40MM/HG. Dispense 2 pair Diagnosis:(I87.2) Venous insufficiency of both lower extremities; (R60.9) Edema Disp: 2 Each Rfl: 1 multivitamin with minerals (HAIR,SKIN AND NAILS) tablet Take 1 tablet by mouth three times daily. Disp: Rfl: nystatin (MYCOSTATIN) 100,000 unit/mL suspension 1 tsp swish and swallow until gone, 4 times daily Disp: 240 mL Rfl: 0 nystatin (MYCOSTATIN) cream Apply 1 application to affected area twice daily. As needed Disp: 60 g Rfl: 1 [place]-3 Fatty Acids-Vitamin E (FISH OIL) 1,000 mg cap Take 1 capsule by mouth three times daily. Disp: Rfl: Omeprazole 40 mg capsule Take 1 capsule by mouth once daily. Disp: 90 capsule Rfl: 3 ondansetron (ZOFRAN) 4 mg tablet Take 1 tablet by mouth every 8 hours as needed for Nausea/Vomiting. Disp: 30 tablet Rfl: 1 QUEtiapine (SEROQUEL) 25 mg tablet Take 1 tablet by mouth twice daily. Disp: Rfl: rOPINIRole (REQUIP) 1 mg tablet Take 1 tablet by mouth four times daily. As directed Disp: 120 tablet Rfl: 5 sucralfate (CARAFATE) 100 mg/mL suspension Take 10 mL by mouth four times daily as needed. As directed (usually before meals and bedtime as needed) Disp: 600 mL Rfl: 11 tiZANidine (ZANAFLEX) 2 mg tablet Take 1 tablet by mouth every 8 hours as needed (muscle spasms, neck pain and headache). May make drowsy Disp: 30 tablet Rfl: 2 topiramate (TOPAMAX) 100 mg tablet Take 100 mg by mouth twice daily. Disp: Rfl: topiramate (TOPAMAX) 50 mg tablet Take 1 tablet by mouth three times daily. for headache Disp: 90 tablet Rfl: 5 triamcinolone acetonide (KENALOG) 0.1 % cream Apply 1 application to affected area three times daily as needed (itchy rash/psoriasis on hands). Apply sparingly Disp: 45 g Rfl: 1 verapamil (CALAN, ISOPTIN) 40 mg tablet Take 1 tablet by mouth three times daily. Disp: 90 tablet Rfl: 11 vitamin b complex (B COMPLETE) tab Take 1 tablet by mouth once daily. Disp: Rfl: 0 warfarin (COUMADIN) 5 mg tablet Take 1 tablet by mouth once daily. SHENG - 7.5mg , sun and 5mg all other days or as directed Disp: 60 tablet Rfl: 11 warfarin (COUMADIN) 7.5 mg tablet Take 1 tablet by mouth daily as directed. Disp: 60 tablet Rfl: 3 No current facility-administered medications for this visit. PAST SURGICAL HISTORY Procedure Laterality Date - COLONOSCOP W/ OR W/O [facility] SPEC 03-06-13 Colonoscopy - EGD W/O OR W/BRUSH/WASH 02/25/2007 EGD - EGD W/O OR W/BRUSH/WASH 11/03/2011 EGD - PAST SURGICAL HISTORY OF [place] except cervix was left in; complicated with wound infection; [facility] - PAST SURGICAL HISTORY OF fundoplication May 1991 - PAST SURGICAL HISTORY OF right foot surgery on achilles tendon - PAST SURGICAL HISTORY OF 09/16/13 bone spur removed from right foot - PAST SURGICAL HISTORY OF 08/2014 Intrathecal pump implant for chronic back pain ([facility]) - PULMONARY FUNCTION TEST 05/04/05 - REMOVAL ADENOIDS,PRIMARY,<12 Y/O Adenoidectomy - REMOVAL GALLBLADDER 1990 Cholecystectomy - REMOVAL OF TONSILS,<12 Y/O Tonsillectomy - TOTAL ABDOM HYSTERECTOMY 2008 polycystic ovaries - UVULECTOMY EXCISION OF UVULA 2004 FAMILY HISTORY Problem Relation Age of Onset - Adopted: Yes - None Mother - Alcohol/Drug Father - None Sister BOWEL PROBLEMS Social History Substance Use Topics - Smoking status: Never Smoker - Smokeless tobacco: Never Used Comment: Parents briefly smoked in childhood home. - Alcohol use No BP 112/80 Pulse 70 Temp 37.3 ?C (99.1 ?F) (Left Tympanic) Resp 22 Wt 122 kg (269 lb) BMI 52.54 kg/m? Objective Physical Exam Constitutional: She is oriented to person, place, and time and well-developed, well-nourished, and in no distress. HENT: Head: Normocephalic and atraumatic. Cardiovascular: Normal rate, regular rhythm and normal heart sounds. Pulmonary/Chest: Effort normal and breath sounds normal. Musculoskeletal: Exam of the left knee reveals mild suprapatellar swelling consistent with effusion. She does have pain on flexion and extension. No laxity. She does walk with a mild antalgic gait. Negative Homans sign. Achilles tendon intact. Pedal pulses 2+. Neurological: She is alert and oriented to person, place, and time. Skin: Skin is warm and dry. Psychiatric: Affect and judgment normal. Nursing note and vitals reviewed. ASSESSMENT/PLAN: 1. Injury of left knee, initial encounter - ICD9: 959.7, ICD10: S89.92XA X-rays here show mild degenerative changes. Recommended continuing the Tylenol, rest, ice. I did apply an Flaco wrap prior to discharge. Recommended to keep appointment with orthopedics at the end of the month. She is agreeable to this plan. - XR KNEE GENERAL 4V AP BOTH/PA BOTH/LAT/MERC LT Karli Regalado PA-C XR KNEE 4V AP/PA Observed: 11/04/2018 Status: F Source: [place] BOTH+LAT/RUDI LT 2:23 PM [facility] REPOSITORY * * *Final Report* * * DATE OF EXAM: Nov 04 2018 2:23PM WOX [id number] - XR KNEE 4V AP/PA BOTH+LAT/RUDI LT / PROCEDURE REASON: Injury of left knee, initial encounter * * * * Physician Interpretation * * * * HISTORY: Injury, pain left knee TECHNIQUE: Bilateral sunrise and upright AP and tunnel views and lateral view of the left knee COMPARISON: None RESULT: Mild presumably degenerative narrowing of the medial joint space compartment of the left knee. Patellofemoral joint appears intact. Alignment appears intact. No fracture or dislocation. IMPRESSION: Mild degenerative change Director Of Orthopedics: ALINE Transcribe Date/Time: Nov 04 2018 2:30P Dictated by : BRENDA TORRES MD This examination was interpreted and the report reviewed and electronically signed by: BRENDA TORRES MD on Nov 04 2018 2:37PM EST [id number] PROGRESS Observed: 11/04/2018 Status: COMPLETED Source: [place] 1:59 PM [facility] REPOSITORY HNO ID: [id number] Author: Gretchen Kate (Rt) Marixa Serrano Service: (none) Author Type: Cash Accounting Clerk Type: Progress Notes Filed: 11/04/2018 2:21 PM Note Text: Radiology Service Progress Note PATIENT NAME: Debora Meyers DATE OF SERVICE: November 04, 2018 TIME: 1:59 PM PATIENT IDENTITY VERIFICATION COMPLETED USING TWO (2) METHODS: Patient confirmed name verbally and Date of . PATIENT GENDER DATA: Female. status: : No status: NO. PATIENT RELEVANT IMPLANT DATA REVIEWED: Not Applicable RADIOLOGY DEPARTMENT: General X-ray: Exam(s) Completed: Lower Extremity X-Ray(s): Knee, AP / Lat / Vale / Merchant Left: PERIPHERAL IV DATA: Not applicable SIGNED BY: RT Rachelle November 04, 2018 1:59 PM CNOV Observed: 11/04/2018 Status: COMPLETED Source: [place] 1:30 PM [facility] REPOSITORY Office Visit ([facility]) DEBORA MEYERS ([id number]) 1965 F Date Time Provider Department 11/04/18 1:30 PM KARLI REGALADO) [facility] During your visit today, we recorded the following information about you: Temperature Pulse Respiration Blood pressure 99.1 degrees 70/minute 22/minute 112/80 Weight 122 kg Karli Regalado PA-C 11/04/2018 4:07 PM Signed Subjective HPI Patient presents with the chief complaint of left knee pain. States she had fallen about a month ago and landed on the knee. She feels like when she moves it it comes apart. She has been walking on it. She is also little bit of swelling over the past couple of days. She is going out of town for [place] and wanted to make sure nothing was wrong with it. She does have a follow-up appointment with Dr. Beckett on November 18. She has been taking Tylenol for pain which does help. She's also been icing which also helped. Review of Systems Musculoskeletal: Left knee pain All other systems reviewed and are negative. PAST MEDICAL HISTORY Diagnosis Date - Allergic rhinitis used to receive allergy shots from Dr. Brown - Alopecia, unspecified 08/29/2012 - Anticoagulated on Coumadin INR goal 3.0 to 4.0 - Anxiety - Asthma - Benign neoplasm of stomach - Bipolar disorder, unspecified 08/29/2012 - Diabetes mellitus type 2, controlled, without complications ([facility]) 08/12/2007 In records from treatment after elevated sugars in 2001 during hospital stay; no longer on any meds and sugars have been fine--either normal or just in impaired fasting glucose level - Embolism and thrombosis (HCC) 08/14/2005 - Environmental allergies 01/17/2012 - Exostosis of unspecified site 09/27/2010 - Fibromyalgia - Goiter, unspecified - Hypothyroidism 10/28/2009 - Nausea alone - Obesity - STACY treated with BiPAP [facility] supplier - Other diseases of lung, not elsewhere classified - Other hammer toe (acquired) 09/27/2010 - RA (rheumatoid arthritis) (HCC) - 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 also elevated BMI . RECOMMENDATIONS are 1.weight loss.2. not seen significant sleep apnea however absense or REM sleep sleep apnea may be understimated.Extrinsic factors leading to excessive daytime somnolence such as mood disturbances and or medication effect may be a factor Current Outpatient Prescriptions: adalimumab (HUMIRA) 40 mg/0.8 mL injection Inject 40 mg subcutaneously one time only. Disp: Rfl: albuterol (PROVENTIL) 2.5 mg /3 mL (0.083 %) nebulizer solution Use 3 mL via nebulizer every 6 hours as needed. Disp: 50 Vial Rfl: 3 albuterol HFA (PROAIR HFA) 90 mcg/actuation inhaler Inhale 2 Puffs as instructed every 4 hours as needed for Wheezing/Shortness of Breath. Disp: 1 Inhaler Rfl: 11 albuterol HFA (PROVENTIL HFA, VENTOLIN HFA) 90 mcg/actuation inhaler Inhale 2 Puffs as instructed every 4 hours as needed (for cough, wheezing, chest tightness or shortness of breath. Use with spacer. ). Disp: 1 Inhaler Rfl: 2 Alpha Lipoic Acid 600 mg cap Take 1 capsule by mouth twice daily. Disp: 60 capsule Rfl: 5 alpha tocopheryl acetate (VITAMIN E) 400 unit capsule Take 2 capsules by mouth once daily. Disp: Rfl: atorvastatin (LIPITOR) 10 mg tablet Take 1 tablet by mouth daily at bedtime. For cholesterol. Disp: 30 tablet Rfl: 11 Benzonatate 200 mg capsule Take 1 capsule by mouth three times daily as needed. Disp: 30 capsule Rfl: 0 Blood Pressure Test Kit-Wrist kit Use to check blood pressure once daily as directed DX:I10 Disp: 1 Kit Rfl: 0 blood sugar diagnostic (TRUE METRIX GLUCOSE TEST STRIP) test strip Test blood sugar 4 x daily. Dx: E11.22. Insulin use: Yes Disp: 150 Strip Rfl: 11 budesonide-formoterol (SYMBICORT) 160-4.5 mcg/actuation inhaler Inhale 2 Puffs as instructed twice daily. (Patient not taking: Reported on 10/22/2018 ) Disp: 1 Inhaler Rfl: 12 CALCIUM CARB/MAGNESIUM OX,CARB (YASMINE-MAG ORAL) Take by mouth. Disp: Rfl: Cetirizine (ZYRTEC) 10 mg cap Take by mouth daily at bedtime. Disp: Rfl: Chlorhexidine Gluconate (PERIDEX) 0.12 % solution Take 15 mL by mouth twice daily. as needed for tooth / mouth pain Disp: 118 mL Rfl: 1 cholecalciferol (VITAMIN D3) 5,000 unit tab Take 1 tablet by mouth once daily. Disp: 90 tablet Rfl: 1 clonazePAM (KLONOPIN) 1 mg tablet Take 0.5-1 tablets by mouth daily at bedtime for 90 days. Disp: 30 tablet Rfl: 1 COMPOUNDED PRESCRIPTION Decrease BiPAP settings to 11/5 cmH2O. Diagnosis G47.33 Disp: 1 Each Rfl: 0 COMPOUNDED PRESCRIPTION Morphine 15 mg per pump filled every [address] Wetzel Disp: Rfl: 0 COMPOUNDED PRESCRIPTION SHOWER CHAIR WITH BACK DX M06.9 I74.9 Disp: 1 Each Rfl: 0 COMPOUNDED PRESCRIPTION SUCTION STYLE GRAB BAR FOR SHOWER WALL INSTALLATION DX M 06.9 I 74.9 Disp: 1 Each Rfl: 0 COUMADIN 1 mg tablet take 5mg daily except for Sunday, take 7.5 mg on Sunday or as directedDO NOT SUBSITUTE WITH GENERIC. Disp: Rfl: 0 dicyclomine (BENTYL) 10 mg capsule Take 1 capsule by mouth four times daily as needed (cramping pains and urgency with bowels). Disp: 120 capsule Rfl: 11 enoxaparin (LOVENOX) 40 mg/0.4 mL syrg 40 mg subcutaneous every 12 hours starting August 12 in the morning; take only the morning dose August 14; do not take August 15 (day of procedure); resume 40 mg every 12 hours starting evening of August 16 ; continue until INR therapeutic Disp: 10 Syringe Rfl: 1 escitalopram oxalate (LEXAPRO) 20 mg tablet Take 1 tablet by mouth once daily. Disp: Rfl: 0 fluticasone (FLONASE) 50 mcg/actuation nasal spray Use 1-2 Sprays in each nostril once daily. Disp: 1 Bottle Rfl: 10 fluticasone-vilanterol (BREO ELLIPTA) 200-25 mcg/dose inhaler Inhale 1 Inhalation as instructed once daily. Disp: 1 Each Rfl: 11 Hydrochlorothiazide 12.5 mg capsule Take 1 capsule by mouth once daily. Disp: 30 capsule Rfl: 0 hydroxychloroquine (PLAQUENIL) 200 mg tablet Take 1 tablet by mouth once daily. Disp: Rfl: 0 insulin glargine (LANTUS SOLOSTAR U-100 INSULIN) 100 unit/mL (3 mL) inpn Inject 12 Units subcutaneously twice daily. Disp: 5 Pen Rfl: 5 insulin lispro (HUMALOG KWIKPEN INSULIN) 100 unit/mL inpn Inject 10 Units subcutaneously w MEALS. Three times daily Disp: 10 Pen Rfl: 11 insulin needles, DISPOSABLE, (BD INSULIN PEN NEEDLE UF) 31 gauge x 5/16 ndle Use with insulin pens 5 times daily, or as directed, Dx: E11.22 Disp: 500 Each Rfl: 11 insulin needles, DISPOSABLE, (UNIFINE PENTIPS) 31 gauge x 5/16 ndle Inject 1 Each subcutaneously four times daily. Disp: 400 Each Rfl: 3 ketoconazole (NIZORAL) 2 % cream Apply 1 application to affected area once daily. as needed to corners of lips and other rash as directed Disp: 60 g Rfl: 0 Lactobacillus acidophilus (PROBIOTIC) 10 billion cell cap Take 2 tablets by mouth daily at bedtime. Disp: Rfl: levothyroxine (LEVOXYL) 100 mcg tablet Take 1 tablet by mouth daily before breakfast. Disp: 30 tablet Rfl: 11 lisinopril (PRINIVIL) 10 mg tablet Take 1 tablet by mouth once daily. Disp: 30 tablet Rfl: 11 loratadine (CLARITIN) 10 mg tablet Take 1 tablet by mouth once daily. Disp: 30 tablet Rfl: 11 melatonin 1 mg tablet Take 1 tablet by mouth daily at bedtime. Disp: Rfl: Miscellaneous Medical Supply [facility] [place] CUSTOM JOBST KNEE HI COMPRESSION STOCKING 30-40MM/HG. Dispense 2 pair Diagnosis:(I87.2) Venous insufficiency of both lower extremities; (R60.9) Edema Disp: 2 Each Rfl: 1 multivitamin with minerals (HAIR,SKIN AND NAILS) tablet Take 1 tablet by mouth three times daily. Disp: Rfl: nystatin (MYCOSTATIN) 100,000 unit/mL suspension 1 tsp swish and swallow until gone, 4 times daily Disp: 240 mL Rfl: 0 nystatin (MYCOSTATIN) cream Apply 1 application to affected area twice daily. As needed Disp: 60 g Rfl: 1 [place]-3 Fatty Acids-Vitamin E (FISH OIL) 1,000 mg cap Take 1 capsule by mouth three times daily. Disp: Rfl: Omeprazole 40 mg capsule Take 1 capsule by mouth once daily. Disp: 90 capsule Rfl: 3 ondansetron (ZOFRAN) 4 mg tablet Take 1 tablet by mouth every 8 hours as needed for Nausea/Vomiting. Disp: 30 tablet Rfl: 1 QUEtiapine (SEROQUEL) 25 mg tablet Take 1 tablet by mouth twice daily. Disp: Rfl: rOPINIRole (REQUIP) 1 mg tablet Take 1 tablet by mouth four times daily. As directed Disp: 120 tablet Rfl: 5 sucralfate (CARAFATE) 100 mg/mL suspension Take 10 mL by mouth four times daily as needed. As directed (usually before meals and bedtime as needed) Disp: 600 mL Rfl: 11 tiZANidine (ZANAFLEX) 2 mg tablet Take 1 tablet by mouth every 8 hours as needed (muscle spasms, neck pain and headache). May make drowsy Disp: 30 tablet Rfl: 2 topiramate (TOPAMAX) 100 mg tablet Take 100 mg by mouth twice daily. Disp: Rfl: topiramate (TOPAMAX) 50 mg tablet Take 1 tablet by mouth three times daily. for headache Disp: 90 tablet Rfl: 5 triamcinolone acetonide (KENALOG) 0.1 % cream Apply 1 application to affected area three times daily as needed (itchy rash/psoriasis on hands). Apply sparingly Disp: 45 g Rfl: 1 verapamil (CALAN, ISOPTIN) 40 mg tablet Take 1 tablet by mouth three times daily. Disp: 90 tablet Rfl: 11 vitamin b complex (B COMPLETE) tab Take 1 tablet by mouth once daily. Disp: Rfl: 0 warfarin (COUMADIN) 5 mg tablet Take 1 tablet by mouth once daily. SHENG - 7.5mg , sun and 5mg all other days or as directed Disp: 60 tablet Rfl: 11 warfarin (COUMADIN) 7.5 mg tablet Take 1 tablet by mouth daily as directed. Disp: 60 tablet Rfl: 3 No current facility-administered medications for this visit. PAST SURGICAL HISTORY Procedure Laterality Date - COLONOSCOP W/ OR W/O [facility] SPEC 03-06-13 Colonoscopy - EGD W/O OR W/BRUSH/WASH 02/25/2007 EGD - EGD W/O OR W/BRUSH/WASH 11/03/2011 EGD - PAST SURGICAL HISTORY OF [place] except cervix was left in; complicated with wound infection; [facility] - PAST SURGICAL HISTORY OF fundoplication May 1991 - PAST SURGICAL HISTORY OF right foot surgery on achilles tendon - PAST SURGICAL HISTORY OF 09/16/13 bone spur removed from right foot - PAST SURGICAL HISTORY OF 08/2014 Intrathecal pump implant for chronic back pain ([facility]) - PULMONARY FUNCTION TEST 05/04/05 - REMOVAL ADENOIDS,PRIMARY,<12 Y/O Adenoidectomy - REMOVAL GALLBLADDER 1990 Cholecystectomy - REMOVAL OF TONSILS,<12 Y/O Tonsillectomy - TOTAL ABDOM HYSTERECTOMY 2008 polycystic ovaries - UVULECTOMY EXCISION OF UVULA 2004 FAMILY HISTORY Problem Relation Age of Onset - Adopted: Yes - None Mother - Alcohol/Drug Father - None Sister BOWEL PROBLEMS Social History Substance Use Topics - Smoking status: Never Smoker - Smokeless tobacco: Never Used Comment: Parents briefly smoked in childhood home. - Alcohol use No BP 112/80 Pulse 70 Temp 37.3 ?C (99.1 ?F) (Left Tympanic) Resp 22 Wt 122 kg (269 lb) BMI 52.54 kg/m? Objective Physical Exam Constitutional: She is oriented to person, place, and time and well-developed, well-nourished, and in no distress. HENT: Head: Normocephalic and atraumatic. Cardiovascular: Normal rate, regular rhythm and normal heart sounds. Pulmonary/Chest: Effort normal and breath sounds normal. Musculoskeletal: Exam of the left knee reveals mild suprapatellar swelling consistent with effusion. She does have pain on flexion and extension. No laxity. She does walk with a mild antalgic gait. Negative Homans sign. Achilles tendon intact. Pedal pulses 2+. Neurological: She is alert and oriented to person, place, and time. Skin: Skin is warm and dry. Psychiatric: Affect and judgment normal. Nursing note and vitals reviewed. ASSESSMENT/PLAN: 1. Injury of left knee, initial encounter - ICD9: 959.7, ICD10: S89.92XA X-rays here show mild degenerative changes. Recommended continuing the Tylenol, rest, ice. I did apply an Flaco wrap prior to discharge. Recommended to keep appointment with orthopedics at the end of the month. She is agreeable to this plan. - XR KNEE GENERAL 4V AP BOTH/PA BOTH/LAT/MERC LT TREMAINE Sandra-C Referring Provider: SELF [200] Allergies As of Date: 11/04/2018 Noted Allergy Reaction environmental [Other] 07/14/2005 2 - Rash 3 - Cough VITAMIN K 07/14/2005 7 - Swelling CHOLESTYRAMINE 03/31/2013 14 - Other: See Comments Comments: constipation IBUPROFEN 06/29/2009 6 - Diarrhea MACROBID (NITROFURANTOIN MONOHYD/*12/06/2010 2 - Rash Comments: states that broke out all over with rash last time was given this in September 2010 peroxide [Other] 07/14/2005 5 - Intolerance SULFA (SULFONAMIDE ANTIBIOTICS) 02/05/2013 2 - Rash TYLENOL (ACETAMINOPHEN) 03/17/2014 11 - Vomiting Comments: Nausea Date Reviewed: 11/04/2018 Reviewed by: Erna Duvall Ma - Fully Assessed Reason for Visit: Knee Pain [132] Cmt: Left Primary Visit Diagnosis:Injury of left knee, initial encounter [S89.92XA] Order(s):XR KNEE GENERAL 4V AP BOTH/PA BOTH/LAT/MERC LT [[id number]] Order #: [id number] FUTURE Prescriptions as of 11/04/2018 Sig: ADALIMUMAB 40 MG/0.8 ML SUBCU* Inject 40 mg subcutaneously o* ALBUTEROL SULFATE 2.5 MG/3 ML* Use 3 mL via nebulizer every * ALBUTEROL SULFATE HFA 90 MCG/* Inhale 2 Puffs as instructed * ALBUTEROL SULFATE HFA 90 MCG/* Inhale 2 Puffs as instructed * ALPHA LIPOIC ACID 600 MG CAPS* Take 1 capsule by mouth twice* VITAMIN E 400 UNIT CAPSULE Take 2 capsules by mouth once* ATORVASTATIN 10 MG TABLET Take 1 tablet by mouth daily * BENZONATATE 200 MG CAPSULE Take 1 capsule by mouth three* BLOOD PRESSURE TEST KIT-WRIST* Use to check blood pressure o* BLOOD SUGAR DIAGNOSTIC STRIPS Test blood sugar 4 x daily. D* BUDESONIDE-FORMOTEROL HFA 160* Inhale 2 Puffs as instructed * Patient not taking: Reported on 10/22/2018 YASMINE-MAG ORAL Take by mouth. CETIRIZINE 10 MG CAPSULE Take by mouth daily at bedtim* CHLORHEXIDINE GLUCONATE 0.12 * Take 15 mL by mouth twice trista* CHOLECALCIFEROL (VITAMIN D3) * Take 1 tablet by mouth once d* CLONAZEPAM 1 MG TABLET Take 0.5-1 tablets by mouth d* COMPOUNDED PRESCRIPTION Decrease BiPAP settings to 11* COMPOUNDED PRESCRIPTION Morphine 15 mg per pump fille* COMPOUNDED PRESCRIPTION SHOWER CHAIR WITH BACK D* COMPOUNDED PRESCRIPTION SUCTION STYLE GRAB BAR FOR SH* COUMADIN 1 MG TABLET take 5mg daily except for Sun* DICYCLOMINE 10 MG CAPSULE Take 1 capsule by mouth four * ENOXAPARIN 40 MG/0.4 ML SUBCU* 40 mg subcutaneous every 12 h* ESCITALOPRAM 20 MG TABLET Take 1 tablet by mouth once d* FLUTICASONE 50 MCG/ACTUATION * Use 1-2 Sprays in each nostri* FLUTICASONE 200 MCG-VILANTERO* Inhale 1 Inhalation as instru* HYDROCHLOROTHIAZIDE 12.5 MG C* Take 1 capsule by mouth once * HYDROXYCHLOROQUINE 200 MG TAB* Take 1 tablet by mouth once d* INSULIN GLARGINE (U-100) 100 * Inject 12 Units subcutaneousl* INSULIN LISPRO (U-100) 100 UN* Inject 10 Units subcutaneousl* PEN NEEDLE, DIABETIC 31 GAUGE* Use with insulin pens 5 times* PEN NEEDLE, DIABETIC 31 GAUGE* Inject 1 Each subcutaneously * KETOCONAZOLE 2 % TOPICAL CREAM Apply 1 application to affect* LACTOBACILLUS ACIDOPHILUS 10 * Take 2 tablets by mouth daily* LEVOTHYROXINE 100 MCG TABLET Take 1 tablet by mouth daily * LISINOPRIL 10 MG TABLET Take 1 tablet by mouth once d* LORATADINE 10 MG TABLET Take 1 tablet by mouth once d* MELATONIN 1 MG TABLET Take 1 tablet by mouth daily * MISCELLANEOUS MEDICAL SUPPLY * CUSTOM JOBST KNEE HI KIRSTY* MULTIVITAMIN WITH MINERALS TA* Take 1 tablet by mouth three * NYSTATIN 100,000 UNIT/ML ORAL* 1 tsp swish and swallow until* NYSTATIN 100,000 UNIT/GRAM TO* Apply 1 application to affect* OMEGA-3 FATTY ACIDS-VITAMIN E* Take 1 capsule by mouth three* OMEPRAZOLE 40 MG CAPSULE,LALITO* Take 1 capsule by mouth once * ONDANSETRON HCL 4 MG TABLET Take 1 tablet by mouth every * QUETIAPINE 25 MG TABLET Take 1 tablet by mouth twice * ROPINIROLE 1 MG TABLET Take 1 tablet by mouth four t* SUCRALFATE 100 MG/ML ORAL BART* Take 10 mL by mouth four time* TIZANIDINE 2 MG TABLET Take 1 tablet by mouth every * TOPIRAMATE 100 MG TABLET Take 100 mg by mouth twice da* TOPIRAMATE 50 MG TABLET Take 1 tablet by mouth three * TRIAMCINOLONE ACETONIDE 0.1 %* Apply 1 application to affect* VERAPAMIL 40 MG TABLET Take 1 tablet by mouth three * VITAMIN B COMPLEX TABLET Take 1 tablet by mouth once d* WARFARIN 5 MG TABLET Take 1 tablet by mouth once d* WARFARIN 7.5 MG TABLET Take 1 tablet by mouth daily * Problem List As Of Date 11/04/2018 Noted Resolved OTHER LUNG DISEASE NEC [J98.4] Asthma [J45.909] OTHER UNSPEC SLEEP APNEA [G47.30] Dysmetabolic syndrome X [E88.81] 09/11/2011 Fibromyalgia [M79.7] Embolism and thrombosis (HCC) [I74.9] INVALID FOR*05/05/2018 GOITER NOS [E04.9] REFLUX ESOPHAGITIS [K21.0] NAUSEA ALONE [R11.0] ACUTE GASTRITIS W/O HEMORRHAGE [K29.00] INVALID FOR* CONSTIPATION NOS [K59.00] INVALID FOR* More... 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 Obstructive Sleep Apnea [G47.33] INVALID FOR* More... Hypothyroidism [E03.9] INVALID FOR* Exostosis of unspecified site [M89.8X9] INVALID FOR*11/27/2017 Other hammer toe (acquired) [M20.40] INVALID FOR*11/27/2017 Hx of hysterectomy [Z90.710] INVALID FOR* More... Allergic rhinitis [J30.9] More... 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] INVALID FOR* Environmental allergies [Z91.09] INVALID FOR*11/27/2017 Morbid obesity due to excess calories (HCC) [E6* Chronic kidney disease, stage III (moderate) [N*INVALID FOR*11/27/2017 Essential hypertension [I10] INVALID FOR* Nephrolithiasis [N20.0] INVALID FOR* Vitamin D deficiency [E55.9] INVALID FOR* Rheumatoid arthritis (HCC) [M06.9] INVALID FOR* Bipolar disorder, unspecified [F31.9] INVALID FOR* Alopecia, unspecified [L65.9] INVALID FOR*11/27/2017 Personal history of pulmonary embolism [Z86.711]INVALID FOR* Irritable bowel syndrome [K58.9] INVALID FOR* Neuropathy [G62.9] INVALID FOR* Incisional hernia [K43.2] INVALID FOR* Polycythemia, secondary [D75.1] INVALID FOR* Anticoagulated on Coumadin [Z51.81, Z79.01] INVALID FOR* STACY treated with BiPAP [G47.33] More... Type 2 DM with CKD stage 3 and hypertension (HC*INVALID FOR* Polypharmacy [Z79.899] INVALID FOR* Noncompliance with treatment [Z91.19] INVALID FOR* CKD (chronic kidney disease) stage 4, GFR 15-29*INVALID FOR*08/26/2017 Nonallergic rhinitis [J31.0] INVALID FOR* History of deep vein thrombosis [Z86.718] INVALID FOR* Hypoxemia [R09.02] INVALID FOR* More... Acute kidney injury superimposed on chronic kid*INVALID FOR* Metabolic encephalopathy [G93.41] INVALID FOR* Hyperkalemia [E87.5] INVALID FOR* Abdominal pannus [E65] INVALID FOR* Anxiety [F41.9] Encounter Status:Closed by KARLI REGALADO PA-C on 11/04/18 PROGRESS Observed: 11/04/2018 Status: COMPLETED Source: [place] 1:23 PM [facility] REPOSITORY HNO ID: [id number] Author: Sheeba King RN Service: (none) Author Type: (none) Type: Progress Notes Filed: 11/04/2018 1:25 PM Note Text: patient had inr completed at [facility] patients inr is 1.5 (patients inr range is 3.0-4.0) patient is currently taking 5mg for 3 doses and then 7.5mg starting 10/31/18 patients last dose change was on 10/31/18 due to a high level of 5.9 (dose at that time was 7.5mg daily) patient has had no changes in medication except for coumadin and no missed doses and no change in diet Advised patient that they would be contacted regarding medication dose and when to follow up after information is reviewed by provider. After provider review please contact the patient with information and schedule follow up appointment with coumadin clinic. FYI - patient has been scheduled for a 1 week follow up inr on 11/15/18 PROGRESS Observed: 10/31/2018 Status: COMPLETED Source: [place] 4:29 PM [facility] REPOSITORY HNO ID: [id number] Author: Sheeba King RN Service: (none) Author Type: (none) Type: Progress Notes Filed: 10/31/2018 4:34 PM Note Text: per written order by dr scott patient is to hold times 1 dose then 5mg for 2 days (sun-sun) and then 7.5mg (sun) then recheck PATIENT NOTIFIED OF INFORMATION PROGRESS Observed: 10/31/2018 Status: COMPLETED Source: [place] 11:02 AM [facility] REPOSITORY HNO ID: [id number] Author: Sheeba King RN Service: (none) Author Type: (none) Type: Progress Notes Filed: 10/31/2018 11:07 AM Note Text: patient had inr completed at [facility] patients inr is 5.9 (patients inr range is 3.0-4.0) patient is currently taking 7.5mg daily patients last dose change unknown as patient has been going to the lab patient has had no changes in medication and no missed doses and no change in diet Advised patient that they would be contacted regarding medication dose and when to follow up after information is reviewed by provider. After provider review please contact the patient with information and schedule follow up appointment with coumadin clinic. FYI - patient has been scheduled for a follow up inr Sunday11/04/18 PROGRESS Observed: 10/29/2018 Status: COMPLETED Source: [place] 10:29 AM [facility] [place] REPOSITORY HNO ID: [id number] Author: Ana Martinez Cma Service: (none) Author Type: (none) Type: Progress Notes Filed: 10/29/2018 10:29 AM Note Text: I called Dr. Benz office and they stated she had her eye exam done on 10/07. They will fax us the report. PROGRESS Observed: 10/23/2018 Status: COMPLETED Source: [place] 12:58 PM [facility] [place] REPOSITORY HNO ID: [id number] Author: Ana Martinez Cma Service: (none) Author Type: (none) Type: Progress Notes Filed: 10/29/2018 10:29 AM Note Text: Office is not open on Wednesdays. Call back tomorrow. PROGRESS Observed: 10/23/2018 Status: COMPLETED Source: [place] 8:26 AM [facility] REPOSITORY HNO ID: [id number] Author: Ana Martinez Cma Service: (none) Author Type: (none) Type: Progress Notes Filed: 10/29/2018 10:29 AM Note Text: [facility] [employer]IST QUICKNOTE Provider Action/FYI: Call Jostin Benz office to get date and report of last eye exam. Patient states she had this done a few weeks ago. PH. Patient identified by name and . Ana Martinez Cma PROGRESS Observed: 10/23/2018 Status: COMPLETED Source: [place] 8:23 AM [facility] REPOSITORY HNO ID: [id number] Author: Ana Martinez Cma Service: (none) Author Type: (none) Type: Progress Notes Filed: 10/29/2018 10:29 AM Note Text: I reached out to Debora and she agreed to schedule her next 3 month follow up appointment and also wanted to schedule one in May. She declines a mammogram at this time. She states she's had an eye exam done with Jostin saxena a few weeks ago. I tried to call their office but they weren't open yet. I will try to call back later. PROGRESS Observed: 10/23/2018 Status: COMPLETED Source: [place] 8:16 AM [facility] REPOSITORY HNO ID: [id number] Author: Ana Martinez Plant [employer]er Service: (none) Author Type: (none) Type: Progress Notes Filed: 10/29/2018 10:29 AM Note Text: PHMA TEAMLET DOCUMENTATION Provider Action/FYI: PSR Action/FYI: *Schedule another follow up for around 03/11/19 for 3 month follow up (after f/up appointment already scheduled) Health Maintenance Due: BP CONTROLLED (<130/80) due on 1985 STEROID INHALER ADHERENCE due on 1985 PAP EVERY 5 YEARS due on 04/25/2018 HPV EVERY 5 YEARS due on 04/25/2018 DIABETIC FOOT EXAM due on 05/23/2018 DILATED RETINAL EXAM due on 07/05/2018 MAMMOGRAM due on 11/05/2018 - order pending Teamlet has identified patient by name and date of . Team: Dr. Marvel Cuadra ? Last Office Visit:10/22/2018 ? Next Office Visit: 12/11/2018 ? Last BP/Labs: Blood Pressure: Last 3 Encounter BP Readings: Date: BP: 10/22/2018 122/80 10/14/2018 144/90 10/07/2018 160/110 Lipids: Cholesterol, Total (mg/dL) Date Value 04/12/2018 284 01/02/2017 214 HDL Cholesterol (mg/dL) Date Value 04/12/2018 52 01/02/2017 52 LDL Cholesterol (mg/dL) Date Value 04/12/2018 163 01/02/2017 107 Triglyceride (mg/dL) Date Value 04/12/2018 343 01/02/2017 274 HGB A1C: Lab Results Component Value Date HBA1C 5.8 08/09/2018 HBA1C 8.4 04/12/2018 HBA1C 8.4 11/13/2017 TSH: TSH (uU/mL) Date Value 10/19/2018 2.490 11/13/2017 0.872 ) Care Gap: DM HTN Hyperlipidemia Plan: ? Confirm PCP / Status - active ? Type of appointment needed: Follow-up HTN, DM in 6 months with Provider pcp or manugrapher (on/around 03/11/19 ? Consultation Appointments: n/a Labs, HM and Immunization: Health Maintenance Due: BP CONTROLLED (<130/80) due on 1985 STEROID INHALER ADHERENCE due on 1985 PAP EVERY 5 YEARS due on 04/25/2018 HPV EVERY 5 YEARS due on 04/25/2018 DIABETIC FOOT EXAM due on 05/23/2018 DILATED RETINAL EXAM due on 07/05/2018 MAMMOGRAM due on 11/05/2018 - order pending Ana Martinez Cma CNPTOUTREACH Observed: 10/23/2018 Status: COMPLETED Source: [place] 12:00 AM [facility] REPOSITORY Patient Outreach ([facility]) DEBORA MEYERS ([id number]) 1965 F Date Time Provider Department 10/23/18 ANA MARTINEZ (SULAIMAN) [facility] During your visit today, we recorded the following information about you: Ana Martinez Cma 10/29/2018 10:29 AM Signed PHMA TEAMLET DOCUMENTATION Provider Action/FYI: PSR Action/FYI: *Schedule another follow up for around 03/11/19 for 3 month follow up (after f/up appointment already scheduled) Health Maintenance Due: BP CONTROLLED (<130/80) due on 1985 STEROID INHALER ADHERENCE due on 1985 PAP EVERY 5 YEARS due on 04/25/2018 HPV EVERY 5 YEARS due on 04/25/2018 DIABETIC FOOT EXAM due on 05/23/2018 DILATED RETINAL EXAM due on 07/05/2018 MAMMOGRAM due on 11/05/2018 - order pending Teamlet has identified patient by name and date of . Team: Dr. Marvel Cuadra ? Last Office Visit:10/22/2018 ? Next Office Visit: 12/11/2018 ? Last BP/Labs: Blood Pressure: Last 3 Encounter BP Readings: Date: BP: 10/22/2018 122/80 10/14/2018 144/90 10/07/2018 160/110 Lipids: Cholesterol, Total (mg/dL) Date Value 04/12/2018 284 01/02/2017 214 HDL Cholesterol (mg/dL) Date Value 04/12/2018 52 01/02/2017 52 LDL Cholesterol (mg/dL) Date Value 04/12/2018 163 01/02/2017 107 Triglyceride (mg/dL) Date Value 04/12/2018 343 01/02/2017 274 HGB A1C: Lab Results Component Value Date HBA1C 5.8 08/09/2018 HBA1C 8.4 04/12/2018 HBA1C 8.4 11/13/2017 TSH: TSH (uU/mL) Date Value 10/19/2018 2.490 11/13/2017 0.872 ) Care Gap: DM HTN Hyperlipidemia Plan: ? Confirm PCP / Status - active ? Type of appointment needed: Follow-up HTN, DM in 6 months with Provider pcp or manugrapher (on/around 03/11/19 ? Consultation Appointments: n/a Labs, HM and Immunization: Health Maintenance Due: BP CONTROLLED (<130/80) due on 1985 STEROID INHALER ADHERENCE due on 1985 PAP EVERY 5 YEARS due on 04/25/2018 HPV EVERY 5 YEARS due on 04/25/2018 DIABETIC FOOT EXAM due on 05/23/2018 DILATED RETINAL EXAM due on 07/05/2018 MAMMOGRAM due on 11/05/2018 - order pending Ana Martinez [facility] Ana Martinez [facility] 10/29/2018 10:29 AM Signed I reached out to [facility] and she agreed to schedule her next 3 month follow up appointment and also wanted to schedule one in May. She declines a mammogram at this time. She states she's had an eye exam done with Jostin saxena a few weeks ago. I tried to call their office but they weren't open yet. I will try to call back later. Ana Mason [facility] 10/29/2018 10:29 AM Signed [facility] [employer]IST QUICKNOTE Provider Action/FYI: Call Jostin Benz office to get date and report of last eye exam. Patient states she had this done a few weeks ago. PH. Patient identified by name and . Ana Martinez [facility] 10/29/2018 10:29 AM Signed Office is not open on Wednesdays. Call back tomorrow. Ana Martinez [facility] 10/29/2018 10:29 AM Signed I called Dr. Benz office and they stated she had her eye exam done on 10/07. They will fax us the report. Allergies As of Date: 10/23/2018 Noted Allergy Reaction environmental [Other] 07/14/2005 2 - Rash 3 - Cough VITAMIN K 07/14/2005 7 - Swelling CHOLESTYRAMINE 03/31/2013 14 - Other: See Comments Comments: constipation IBUPROFEN 06/29/2009 6 - Diarrhea MACROBID (NITROFURANTOIN MONOHYD/*12/06/2010 2 - Rash Comments: states that broke out all over with rash last time was given this in September 2010 peroxide [Other] 07/14/2005 5 - Intolerance SULFA (SULFONAMIDE ANTIBIOTICS) 02/05/2013 2 - Rash TYLENOL (ACETAMINOPHEN) 03/17/2014 11 - Vomiting Comments: Nausea Date Reviewed: 10/22/2018 Reviewed by: Portia Bennett LPN - Fully Assessed Reason for Visit: [facility]/Care Gap Outreach [[id number]] Primary Visit Diagnosis:Screening mammogram, encounter for [Z12.31] Prescriptions as of 10/23/2018 Sig: ADALIMUMAB 40 MG/0.8 ML SUBCU* Inject 40 mg subcutaneously o* ALBUTEROL SULFATE 2.5 MG/3 ML* Use 3 mL via nebulizer every * ALBUTEROL SULFATE HFA 90 MCG/* Inhale 2 Puffs as instructed * ALBUTEROL SULFATE HFA 90 MCG/* Inhale 2 Puffs as instructed * ALPHA LIPOIC ACID 600 MG CAPS* Take 1 capsule by mouth twice* VITAMIN E 400 UNIT CAPSULE Take 2 capsules by mouth once* ATORVASTATIN 10 MG TABLET Take 1 tablet by mouth daily * BENZONATATE 200 MG CAPSULE Take 1 capsule by mouth three* BLOOD PRESSURE TEST KIT-WRIST* Use to check blood pressure o* BLOOD SUGAR DIAGNOSTIC STRIPS Test blood sugar 4 x daily. D* BUDESONIDE-FORMOTEROL HFA 160* Inhale 2 Puffs as instructed * Patient not taking: Reported on 10/22/2018 YASMINE-MAG ORAL Take by mouth. CEPHALEXIN 500 MG CAPSULE Take 1 capsule by mouth four * CETIRIZINE 10 MG CAPSULE Take by mouth daily at bedtim* CHLORHEXIDINE GLUCONATE 0.12 * Take 15 mL by mouth twice trista* CHOLECALCIFEROL (VITAMIN D3) * Take 1 tablet by mouth once d* CLONAZEPAM 1 MG TABLET Take 0.5-1 tablets by mouth d* COMPOUNDED PRESCRIPTION Decrease BiPAP settings to 11* COMPOUNDED PRESCRIPTION Morphine 15 mg per pump fille* COMPOUNDED PRESCRIPTION SHOWER CHAIR WITH BACK D* COMPOUNDED PRESCRIPTION SUCTION STYLE GRAB BAR FOR SH* COUMADIN 1 MG TABLET take 5mg daily except for Sun* DICYCLOMINE 10 MG CAPSULE Take 1 capsule by mouth four * ENOXAPARIN 40 MG/0.4 ML SUBCU* 40 mg subcutaneous every 12 h* ESCITALOPRAM 20 MG TABLET Take 1 tablet by mouth once d* FLUTICASONE 50 MCG/ACTUATION * Use 1-2 Sprays in each nostri* FLUTICASONE 200 MCG-VILANTERO* Inhale 1 Inhalation as instru* HYDROCHLOROTHIAZIDE 12.5 MG C* Take 1 capsule by mouth once * HYDROXYCHLOROQUINE 200 MG TAB* Take 1 tablet by mouth once d* INSULIN GLARGINE (U-100) 100 * Inject 12 Units subcutaneousl* INSULIN LISPRO (U-100) 100 UN* Inject 10 Units subcutaneousl* PEN NEEDLE, DIABETIC 31 GAUGE* Use with insulin pens 5 times* PEN NEEDLE, DIABETIC 31 GAUGE* Inject 1 Each subcutaneously * KETOCONAZOLE 2 % TOPICAL CREAM Apply 1 application to affect* LACTOBACILLUS ACIDOPHILUS 10 * Take 2 tablets by mouth daily* LEVOTHYROXINE 100 MCG TABLET Take 1 tablet by mouth daily * LISINOPRIL 10 MG TABLET Take 1 tablet by mouth once d* LORATADINE 10 MG TABLET Take 1 tablet by mouth once d* MELATONIN 1 MG TABLET Take 1 tablet by mouth daily * MISCELLANEOUS MEDICAL SUPPLY * CUSTOM JOBST KNEE HI KIRSTY* MULTIVITAMIN WITH MINERALS TA* Take 1 tablet by mouth three * NYSTATIN 100,000 UNIT/GRAM TO* Apply 1 application to affect* OMEGA-3 FATTY ACIDS-VITAMIN E* Take 1 capsule by mouth three* OMEPRAZOLE 40 MG CAPSULE,LALITO* Take 1 capsule by mouth once * ONDANSETRON HCL 4 MG TABLET Take 1 tablet by mouth every * QUETIAPINE 25 MG TABLET Take 1 tablet by mouth twice * ROPINIROLE 1 MG TABLET Take 1 tablet by mouth four t* TIZANIDINE 2 MG TABLET Take 1 tablet by mouth every * TOPIRAMATE 100 MG TABLET Take 100 mg by mouth twice da* TOPIRAMATE 50 MG TABLET Take 1 tablet by mouth three * TRIAMCINOLONE ACETONIDE 0.1 %* Apply 1 application to affect* VERAPAMIL 40 MG TABLET Take 1 tablet by mouth three * VITAMIN B COMPLEX TABLET Take 1 tablet by mouth once d* WARFARIN 5 MG TABLET Take 1 tablet by mouth once d* WARFARIN 7.5 MG TABLET Take 1 tablet by mouth daily * X NYSTATIN 100,000 UNIT/ML ORAL* 1 tsp swish and swallow until* X SUCRALFATE 100 MG/ML ORAL BART* Take 10 mL by mouth four time* Problem List As Of Date 10/23/2018 Noted Resolved OTHER LUNG DISEASE NEC [J98.4] Asthma [J45.909] OTHER UNSPEC SLEEP APNEA [G47.30] Dysmetabolic syndrome X [E88.81] 09/11/2011 Fibromyalgia [M79.7] Embolism and thrombosis (HCC) [I74.9] INVALID FOR*05/05/2018 GOITER NOS [E04.9] REFLUX ESOPHAGITIS [K21.0] NAUSEA ALONE [R11.0] ACUTE GASTRITIS W/O HEMORRHAGE [K29.00] INVALID FOR* CONSTIPATION NOS [K59.00] INVALID FOR* More... 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 Obstructive Sleep Apnea [G47.33] INVALID FOR* More... Hypothyroidism [E03.9] INVALID FOR* Exostosis of unspecified site [M89.8X9] INVALID FOR*11/27/2017 Other hammer toe (acquired) [M20.40] INVALID FOR*11/27/2017 Hx of hysterectomy [Z90.710] INVALID FOR* More... Allergic rhinitis [J30.9] More... 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] INVALID FOR* Environmental allergies [Z91.09] INVALID FOR*11/27/2017 Morbid obesity due to excess calories (HCC) [E6* Chronic kidney disease, stage III (moderate) [N*INVALID FOR*11/27/2017 Essential hypertension [I10] INVALID FOR* Nephrolithiasis [N20.0] INVALID FOR* Vitamin D deficiency [E55.9] INVALID FOR* Rheumatoid arthritis (HCC) [M06.9] INVALID FOR* Bipolar disorder, unspecified [F31.9] INVALID FOR* Alopecia, unspecified [L65.9] INVALID FOR*11/27/2017 Personal history of pulmonary embolism [Z86.711]INVALID FOR* Irritable bowel syndrome [K58.9] INVALID FOR* Neuropathy [G62.9] INVALID FOR* Incisional hernia [K43.2] INVALID FOR* Polycythemia, secondary [D75.1] INVALID FOR* Anticoagulated on Coumadin [Z51.81, Z79.01] INVALID FOR* STACY treated with BiPAP [G47.33] More... Type 2 DM with CKD stage 3 and hypertension (HC*INVALID FOR* Polypharmacy [Z79.899] INVALID FOR* Noncompliance with treatment [Z91.19] INVALID FOR* CKD (chronic kidney disease) stage 4, GFR 15-29*INVALID FOR*08/26/2017 Nonallergic rhinitis [J31.0] INVALID FOR* History of deep vein thrombosis [Z86.718] INVALID FOR* Hypoxemia [R09.02] INVALID FOR* More... Acute kidney injury superimposed on chronic kid*INVALID FOR* Metabolic encephalopathy [G93.41] INVALID FOR* Hyperkalemia [E87.5] INVALID FOR* Abdominal pannus [E65] INVALID FOR* Anxiety [F41.9] Encounter Status:Closed by ANA MARTINEZ CMA on 10/29/18 PROGRESS Observed: 10/22/2018 Status: COMPLETED Source: [place] 11:31 AM [facility] REPOSITORY HNO ID: [id number] Author: Trish Ramírez (Cns) Service: (none) Author Type: Nurse Specialist Type: Progress Notes Filed: 10/22/2018 1:06 PM Note Text: OUTPATIENT VISIT DATE October 22, 2018 OUTPATIENT VISIT TYPE ESTABLISHED PRIMARY CARE PHYSICIAN: Livia Scott MD CHIEF COMPLAINT: Patient presents with: Blood Pressure History of Present Illness: Debora Meyers is a 53 year old female who was last seen October 14, 2018 She has been seen in the past for ACTIVE PROBLEM LIST Other Diseases of Lung, Not Elsewhere Classified Asthma Unspecified Sleep Apnea Fibromyalgia Goiter, Unspecified Reflux Esophagitis Nausea Alone Acute Gastritis Without Mention of Hemorrhage Unspecified Constipation Mixed Hyperlipidemia Hypopotassemia Disorder of Hypothalamus ([facility]) Obstructive Sleep Apnea Hypothyroidism Hx of Hysterectomy Allergic Rhinitis Benign Neoplasm of Stomach Morbid Obesity Due to Excess Calories ([facility]) Essential Hypertension Nephrolithiasis Vitamin D Deficiency Rheumatoid Arthritis (Hcc) Bipolar Disorder, Unspecified ([facility]) Personal History of Pulmonary Embolism Irritable Bowel Syndrome Neuropathy ([facility]) Incisional Hernia Polycythemia, Secondary Anticoagulated On Coumadin Stacy Treated With Bipap Type 2 Dm With Ckd Stage 3 and Hypertension ([facility]) Polypharmacy Noncompliance With Treatment Nonallergic Rhinitis History of Deep Vein Thrombosis Hypoxemia Acute Kidney Injury Superimposed On Chronic Kidney Disease ([facility]) Metabolic Encephalopathy Hyperkalemia Abdominal Pannus Anxiety HPI excerpted from last visit: At her last visit was resumed on blood pressure medications. She reports consistently taking blood pressure medication. Takes typically in the middle of day. No adverse effects of medications noted. Without report of chest pain shortness breath dizziness lightheadedness palpitations Since the last visit, she states that she continues to be under stress going through divorce. She brings in forms from [facility] [place] when he did complete INR at home. Livia Scott MD to sign off. Reports using BiPAP, oxygen increased to 3 L due to hypoxia noted on recent diagnostics per [facility] [place] Reports poorly controlled diabetes currently. Reports fasting blood sugars typically 250-275. She reports checking blood sugar before dinner and getting about the same results. Does not bring her meter to her visit today. She reports taking mealtime insulin 10 units for each meal and 10 units of Lantus once daily. She reports sores on her bottom which have been present for a while, has not yet healed She presents today reporting that she's been taking 11 units of Lantus twice daily. Continues with mealtime insulin unchanged. She brings her meter to her visit. Fasting blood sugars have been running in the 200s since last here. She reports difficulty with diet, limited funds She reports sores on the bottom of healed She reports abdominal discomfort and redness. No fever or drainage. She reports chronic pain of left knee, no prior surgeries, no injury, no significant swelling, range of motion unchanged, no falls, locking, crepitus is reported. PAST MEDICAL HISTORY Diagnosis Date - Allergic rhinitis used to receive allergy shots from Dr. Brown - Alopecia, unspecified 08/29/2012 - Anticoagulated on Coumadin INR goal 3.0 to 4.0 - Anxiety - Asthma - Benign neoplasm of stomach - Bipolar disorder, unspecified 08/29/2012 - Diabetes mellitus type 2, controlled, without complications (HCC) 08/12/2007 In records from treatment after elevated sugars in 2001 during hospital stay; no longer on any meds and sugars have been fine--either normal or just in impaired fasting glucose level - Embolism and thrombosis (HCC) 08/14/2005 - Environmental allergies 01/17/2012 - Exostosis of unspecified site 09/27/2010 - Fibromyalgia - Goiter, unspecified - Hypothyroidism 10/28/2009 - Nausea alone - Obesity - STACY treated with BiPAP [facility] supplier - Other diseases of lung, not elsewhere classified - Other hammer toe (acquired) 09/27/2010 - RA (rheumatoid arthritis) (HCC) - 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 also elevated BMI . RECOMMENDATIONS are 1.weight loss.2. not seen significant sleep apnea however absense or REM sleep sleep apnea may be understimated.Extrinsic factors leading to excessive daytime somnolence such as mood disturbances and or medication effect may be a factor PAST SURGICAL HISTORY Procedure Laterality Date - COLONOSCOP W/ OR W/O [facility] SPEC 03-06-13 Colonoscopy - EGD W/O OR W/BRUSH/WASH 02/25/2007 EGD - EGD W/O OR W/BRUSH/WASH 11/03/2011 EGD - PAST SURGICAL HISTORY OF [place] except cervix was left in; complicated with wound infection; [facility] - PAST SURGICAL HISTORY OF fundoplication May 1991 - PAST SURGICAL HISTORY OF right foot surgery on achilles tendon - PAST SURGICAL HISTORY OF 09/16/13 bone spur removed from right foot - PAST SURGICAL HISTORY OF 08/2014 Intrathecal pump implant for chronic back pain ([facility]) - PULMONARY FUNCTION TEST 05/04/05 - REMOVAL ADENOIDS,PRIMARY,<12 Y/O Adenoidectomy - REMOVAL GALLBLADDER 1990 Cholecystectomy - REMOVAL OF TONSILS,<12 Y/O Tonsillectomy - TOTAL ABDOM HYSTERECTOMY 2008 polycystic ovaries - UVULECTOMY EXCISION OF UVULA 2004 FAMILY HISTORY Problem Relation Age of Onset - Adopted: Yes - None Mother - Alcohol/Drug Father - None Sister BOWEL PROBLEMS Social History Substance Use Topics - Smoking status: Never Smoker - Smokeless tobacco: Never Used Comment: Parents briefly smoked in childhood home. - Alcohol use No ALLERGIES: ALLERGIES Allergen Reactions - Environmental [Othe* Rash, Cough - Vitamin K Swelling - Cholestyramine Other: See Comments constipation - Ibuprofen Diarrhea - Macrobid [Nitrofura* Rash states that broke out all over with rash last time was given this in September 2010 - Peroxide [Other] Intolerance - Sulfa (Sulfonamide * Rash - Tylenol [Acetaminop* Vomiting Nausea MEDICATIONS lisinopril (PRINIVIL) 10 mg tablet Take 1 tablet by mouth once daily. insulin glargine (LANTUS SOLOSTAR U-100 INSULIN) 100 unit/mL (3 mL) inpn Inject 12 Units subcutaneously twice daily. Chlorhexidine Gluconate (PERIDEX) 0.12 % solution Take 15 mL by mouth twice daily. as needed for tooth / mouth pain Hydrochlorothiazide 12.5 mg capsule Take 1 capsule by mouth once daily. topiramate (TOPAMAX) 100 mg tablet Take 100 mg by mouth twice daily. tiZANidine (ZANAFLEX) 2 mg tablet Take 1 tablet by mouth every 8 hours as needed (muscle spasms, neck pain and headache). May make drowsy rOPINIRole (REQUIP) 1 mg tablet Take 1 tablet by mouth four times daily. As directed Omeprazole 40 mg capsule Take 1 capsule by mouth once daily. clonazePAM (KLONOPIN) 1 mg tablet Take 0.5-1 tablets by mouth daily at bedtime for 90 days. enoxaparin (LOVENOX) 40 mg/0.4 mL syrg 40 mg subcutaneous every 12 hours starting August 12 in the morning; take only the morning dose August 14; do not take August 15 (day of procedure); resume 40 mg every 12 hours starting evening of August 16 ; continue until INR therapeutic Alpha Lipoic Acid 600 mg cap Take 1 capsule by mouth twice daily. insulin needles, DISPOSABLE, (BD INSULIN PEN NEEDLE UF) 31 gauge x 5/16 ndle Use with insulin pens 5 times daily, or as directed, Dx: E11.22 topiramate (TOPAMAX) 50 mg tablet Take 1 tablet by mouth three times daily. for headache melatonin 1 mg tablet Take 1 tablet by mouth daily at bedtime. insulin lispro (HUMALOG KWIKPEN INSULIN) 100 unit/mL inpn Inject 10 Units subcutaneously w MEALS. Three times daily loratadine (CLARITIN) 10 mg tablet Take 1 tablet by mouth once daily. verapamil (CALAN, ISOPTIN) 40 mg tablet Take 1 tablet by mouth three times daily. atorvastatin (LIPITOR) 10 mg tablet Take 1 tablet by mouth daily at bedtime. For cholesterol. dicyclomine (BENTYL) 10 mg capsule Take 1 capsule by mouth four times daily as needed (cramping pains and urgency with bowels). ondansetron (ZOFRAN) 4 mg tablet Take 1 tablet by mouth every 8 hours as needed for Nausea/Vomiting. levothyroxine (LEVOXYL) 100 mcg tablet Take 1 tablet by mouth daily before breakfast. blood sugar diagnostic (TRUE METRIX GLUCOSE TEST STRIP) test strip Test blood sugar 4 x daily. Dx: E11.22. Insulin use: Yes adalimumab (HUMIRA) 40 mg/0.8 mL injection Inject 40 mg subcutaneously one time only. nystatin (MYCOSTATIN) 100,000 unit/mL suspension 1 tsp swish and swallow until gone, 4 times daily fluticasone (FLONASE) 50 mcg/actuation nasal spray Use 1-2 Sprays in each nostril once daily. Cetirizine (ZYRTEC) 10 mg cap Take by mouth daily at bedtime. fluticasone-vilanterol (BREO ELLIPTA) 200-25 mcg/dose inhaler Inhale 1 Inhalation as instructed once daily. albuterol HFA (PROVENTIL HFA, VENTOLIN HFA) 90 mcg/actuation inhaler Inhale 2 Puffs as instructed every 4 hours as needed (for cough, wheezing, chest tightness or shortness of breath. Use with spacer. ). Benzonatate 200 mg capsule Take 1 capsule by mouth three times daily as needed. triamcinolone acetonide (KENALOG) 0.1 % cream Apply 1 application to affected area three times daily as needed (itchy rash/psoriasis on hands). Apply sparingly insulin needles, DISPOSABLE, (UNIFINE PENTIPS) 31 gauge x 5/16 ndle Inject 1 Each subcutaneously four times daily. cholecalciferol (VITAMIN D3) 5,000 unit tab Take 1 tablet by mouth once daily. warfarin (COUMADIN) 7.5 mg tablet Take 1 tablet by mouth daily as directed. warfarin (COUMADIN) 5 mg tablet Take 1 tablet by mouth once daily. SHENG - 7.5mg , sun and 5mg all other days or as directed multivitamin with minerals (HAIR,SKIN AND NAILS) tablet Take 1 tablet by mouth three times daily. alpha tocopheryl acetate (VITAMIN E) 400 unit capsule Take 2 capsules by mouth once daily. sucralfate (CARAFATE) 100 mg/mL suspension Take 10 mL by mouth four times daily as needed. As directed (usually before meals and bedtime as needed) COMPOUNDED PRESCRIPTION SHOWER CHAIR WITH BACK DX M06.9 I74.9 COMPOUNDED PRESCRIPTION SUCTION STYLE GRAB BAR FOR SHOWER WALL INSTALLATION DX M 06.9 I 74.9 albuterol HFA (PROAIR HFA) 90 mcg/actuation inhaler Inhale 2 Puffs as instructed every 4 hours as needed for Wheezing/Shortness of Breath. COUMADIN 1 mg tablet take 5mg daily except for Sunday, take 7.5 mg on Sunday or as directedDO NOT SUBSITUTE WITH GENERIC. QUEtiapine (SEROQUEL) 25 mg tablet Take 1 tablet by mouth twice daily. albuterol (PROVENTIL) 2.5 mg /3 mL (0.083 %) nebulizer solution Use 3 mL via nebulizer every 6 hours as needed. Blood Pressure Test Kit-Wrist kit Use to check blood pressure once daily as directed DX:I10 hydroxychloroquine (PLAQUENIL) 200 mg tablet Take 1 tablet by mouth once daily. CALCIUM CARB/MAGNESIUM OX,CARB (YASMINE-MAG ORAL) Take by mouth. nystatin (MYCOSTATIN) cream Apply 1 application to affected area twice daily. As needed escitalopram oxalate (LEXAPRO) 20 mg tablet Take 1 tablet by mouth once daily. COMPOUNDED PRESCRIPTION Morphine 15 mg per pump filled every [address] Wetzel Lactobacillus acidophilus (PROBIOTIC) 10 billion cell cap Take 2 tablets by mouth daily at bedtime. vitamin b complex (B COMPLETE) tab Take 1 tablet by mouth once daily. COMPOUNDED PRESCRIPTION Decrease BiPAP settings to 11/5 cmH2O. Diagnosis G47.33 Miscellaneous Medical [facility] CUSTOM JOBST KNEE HI COMPRESSION STOCKING 30-40MM/HG. Dispense 2 pair Diagnosis:(I87.2) Venous insufficiency of both lower extremities; (R60.9) Edema ketoconazole (NIZORAL) 2 % cream Apply 1 application to affected area once daily. as needed to corners of lips and other rash as directed [place]-3 Fatty Acids-Vitamin E (FISH OIL) 1,000 mg cap Take 1 capsule by mouth three times daily. cephALEXin (KEFLEX) 500 mg capsule Take 1 capsule by mouth four times daily for 10 days. Take with food budesonide-formoterol (SYMBICORT) 160-4.5 mcg/actuation inhaler Inhale 2 Puffs as instructed twice daily. REVIEW OF SYSTEMS: GENERAL: Negative for: Weight loss or gain, Fever or Chills, Weakness .She reports difficulty sleeping currently due to going through divorce Physical Examination: BP 122/80 Pulse 88 Resp 16 Ht 5' 0 (1.52m) Wt 282 lb (127.9kg) BMI 55.07 kg/(m2). BP w/Orthostatic Vitals Date and Time Orthostatic BP Orthostatic Pulse BP Pulse BP Position BP Site BP Cuff Size 10/14/18 1040 -- -- 144/90 -- Sitting Right Arm Regular Adult 10/14/18 1032 -- -- 142/90 (!) 24 Sitting Right Arm Regular Adult Peak Flow Date and Time PF Resp 10/14/18 1032 -- 16 General appearance: Well appearing, alert, in no acute distress, obese, well-hydrated, well nourished. Skin: Skin color, texture, turgor normal, no suspicious rashes + 2 1 diameter partial thickness wounds with red bases, no drainage or surrounding erythema or warmth one on each side of april cleft Lungs: Lungs clear to auscultation. No wheezing, rhonchi, rales Heart: RRR without murmur, gallop, or rubs. Abdomen: Abdomen Large soft, with pannus, tender to palpation, mild erythema from umbilicus to bottom of pannus, no drainage, no warmth. Bowel sounds normal. No masses, organomegaly Extremities: No edema, skin discoloration, clubbing or cyanosis. Good capillary refill. Left knee with no crepitus appreciated, no swelling, no pain with ROM noted, not TTP. Peripheral pulses: Normal Neuro: Gait normal. Sensation grossly intact. Reviewed chart, outside records, tests I personally interviewed, confirmed and edited the above information if obtained by others. TESTING: Glucose (mg/dL) Date Value 10/19/2018 292 Potassium (mmol/L) Date Value 10/19/2018 4.9 Sodium (mmol/L) Date Value 10/19/2018 139 Chloride (mmol/L) Date Value 10/19/2018 101 CO2 (mmol/L) Date Value 10/19/2018 25 Creatinine (mg/dL) Date Value 10/19/2018 1.32 BUN (mg/dL) Date Value 10/19/2018 24 Anion Gap (mmol/L) Date Value 10/19/2018 13 Calcium (mg/dL) Date Value 10/19/2018 9.6 Glucose (mg/dL) Date Value 10/19/2018 292 Potassium (mmol/L) Date Value 10/19/2018 4.9 Sodium (mmol/L) Date Value 10/19/2018 139 Chloride (mmol/L) Date Value 10/19/2018 101 CO2 (mmol/L) Date Value 10/19/2018 25 Creatinine (mg/dL) Date Value 10/19/2018 1.32 BUN (mg/dL) Date Value 10/19/2018 24 Anion Gap (mmol/L) Date Value 10/19/2018 13 Calcium (mg/dL) Date Value 10/19/2018 9.6 Protein, Total (g/dL) Date Value 04/12/2018 7.0 Albumin (g/dL) Date Value 04/12/2018 4.2 Bilirubin, Total (mg/dL) Date Value 04/12/2018 0.3 Alkaline Phosphatase (U/L) Date Value 04/12/2018 92 AST (U/L) Date Value 04/12/2018 43 ALT (U/L) Date Value 04/12/2018 49 Hemoglobin (g/dL) Date Value 11/13/2017 14.4 Hematocrit (%) Date Value 11/13/2017 42.9 WBC (k/uL) Date Value 11/13/2017 5.35 Cholesterol, Total (mg/dL) Date Value 04/12/2018 284 HDL Cholesterol (mg/dL) Date Value 04/12/2018 52 LDL Cholesterol (mg/dL) Date Value 04/12/2018 163 Triglyceride (mg/dL) Date Value 04/12/2018 343 Hemoglobin A1C Date Value Ref Range Status 08/09/2018 5.8 (H) 4.3 - 5.6 % Final 04/12/2018 8.4 (H) 4.3 - 5.6 % Final 11/13/2017 8.4 (H) 4.3 - 5.6 % Final 07/28/2017 7.1 (H) 4.3 - 5.6 % Final Comment: [place] [employer] guidelines indicate that patients with HgbA1c in the range 5.7-6.4% are at increased risk for development of diabetes, and intervention by lifestyle modification may be beneficial. HgbA1c greater or equal to 6.5% is considered diagnostic of diabetes. 03/12/2017 9.6 (H) 4.3 - 5.6 % Final Comment: [place] [employer] guidelines indicate that patients with HgbA1c in the range 5.7-6.4% are at increased risk for development of diabetes, and intervention by lifestyle modification may be beneficial. HgbA1c greater or equal to 6.5% is considered diagnostic of diabetes. Component Latest Ref Rng AND Units 06/28/2018 10/07/2018 10/19/2018 Glucose 74 - 99 mg/dL 174 (H) 242 (H) 292 (H) BUN 7 - 21 mg/dL 17 18 24 (H) Creatinine 0.58 - 0.96 mg/dL 1.20 (H) 1.23 (H) 1.32 (H) Sodium 136 - 144 mmol/L 143 139 139 Potassium 3.7 - 5.1 mmol/L 4.1 3.8 4.9 Chloride 97 - 105 mmol/L 107 (H) 103 101 CO2 22 - 30 mmol/L 20 (L) 19 (L) 25 Anion Gap 9 - 18 mmol/L 16 17 13 Calcium 8.5 - 10.2 mg/dL 9.8 10.1 9.6 eGFR- 57 56 51 eGFR-All Other Races . 47 46 42 PT Sec 9.7 - 13.0 sec 14.2 (H) PT INR 0.9 - 1.3 1.4 (H) Vitamin D 25 Hydroxy 31.0 - 80.0 ng/mL 23.7 (L) TSH 0.400 - 5.500 uU/mL 2.490 Free T4 0.9 - 1.7 ng/dL 1.0 Ejection Fraction: No results found IMPRESSION: Ms. Meyers is a 53 year old woman presents for follow up of hypertension. After my examination and review of data, I make the following recommendations. PLAN AND RECOMMENDATIONS: 1. Cellulitis of abdominal wall - ICD9: 682.2, ICD10: L03.311 (primary diagnosis) - Begin treatment with Cephalaxin (Keflex) - No lymphangetic streaking, this was defined for patient to watch for and to seek medical care immediately if appears - Follow up for recheck - CEPHALEXIN 500 MG CAPSULE 2. Essential hypertension - ICD9: 401.9, ICD10: I10 - good control - Continue current medication(s) - Encouraged dietary sodium restriction/DASH diet - Recommended regular aerobic exercise. - Recommend home blood pressure monitoring, to bring results in on next visit - Goal of BP <130/80 3. Type 2 DM with CKD stage 3 and hypertension (HCC) - ICD9: 250.40, 403.90, 585.3, ICD10: E11.22, I12.9, N18.3 - suboptimal control - Increase Lantus from 11 units BID to 12 units BID - Recommended regular aerobic exercise. - Recommend home blood pressure monitoring, to bring results in on next visit - Goal of BP <130/80 - HGB A1C at next visit,most recent well controlled 4. Chronic pain of left knee - ICD9: 719.46, 338.29, ICD10: M25.562, G89.29 - CONSULT TO ORTHOPAEDICS 5. Morbid obesity due to excess calories (HCC) - ICD9: 278.01, ICD10: E66.01 transformation coach is advised, deferred due to expense, declines to see financial counselor due to current social stress / divorce. Advise: Increase lantus to 12 units morning and evening Start taking Keflex with food for abdominal pain / infection See financial counselor about appt with transformation coach Increase fluid intake Advised to go to ER if develops chest pain, shortness of breath, or severe worsening of symptoms. Discussed risks, benefits, alternatives, and potential side effects of medications. Ms. Meyers expressed understanding and agreed with the plan. Trish Ramírez APRN.KHALIF CNOV Observed: 10/22/2018 Status: COMPLETED Source: [place] 11:00 AM [facility] REPOSITORY Office Visit (INTMWS) DEBORA MEYERS ([id number]) 1965 F Date Time Provider Department 10/22/18 11:00 AM TRISH RAMÍREZ (KHALIF) INTMWS During your visit today, we recorded the following information about you: Pulse Respiration Blood pressure Weight 88/minute 16/minute 122/80 127.9 kg Height 1.524 m Trish Ramírez APRN.CNS 10/22/2018 11:28 AM Addendum Increase lantus to 12 units morning and evening Start taking Keflex with food for abdominal pain / infection See financial counselor about appt with transformation coach Increase fluid intake Trish GRAHAM Ramírez.HISTOLOGY TEACHER 10/22/2018 1:06 PM Signed OUTPATIENT VISIT DATE October 22, 2018 OUTPATIENT VISIT TYPE ESTABLISHED PRIMARY CARE PHYSICIAN: Livia Scott MD CHIEF COMPLAINT: Patient presents with: Blood Pressure History of Present Illness: Debora Meyers is a 53 year old female who was last seen October 14, 2018 She has been seen in the past for ACTIVE PROBLEM LIST Other Diseases of Lung, Not Elsewhere Classified Asthma Unspecified Sleep Apnea Fibromyalgia Goiter, Unspecified Reflux Esophagitis Nausea Alone Acute Gastritis Without Mention of Hemorrhage Unspecified Constipation Mixed Hyperlipidemia Hypopotassemia Disorder of Hypothalamus (Hcc) Obstructive Sleep Apnea Hypothyroidism Hx of Hysterectomy Allergic Rhinitis Benign Neoplasm of Stomach Morbid Obesity Due to Excess Calories (Hcc) Essential Hypertension Nephrolithiasis Vitamin D Deficiency Rheumatoid Arthritis (Hcc) Bipolar Disorder, Unspecified (Hcc) Personal History of Pulmonary Embolism Irritable Bowel Syndrome Neuropathy ([facility]) Incisional Hernia Polycythemia, Secondary Anticoagulated On Coumadin Stacy Treated With Bipap Type 2 Dm With Ckd Stage 3 and Hypertension ([facility]) Polypharmacy Noncompliance With Treatment Nonallergic Rhinitis History of Deep Vein Thrombosis Hypoxemia Acute Kidney Injury Superimposed On Chronic Kidney Disease (Hcc) Metabolic Encephalopathy Hyperkalemia Abdominal Pannus Anxiety HPI excerpted from last visit: At her last visit was resumed on blood pressure medications. She reports consistently taking blood pressure medication. Takes typically in the middle of day. No adverse effects of medications noted. Without report of chest pain shortness breath dizziness lightheadedness palpitations Since the last visit, she states that she continues to be under stress going through divorce. She brings in forms from [facility], [place] when he did complete INR at home. Livia Scott MD to sign off. Reports using BiPAP, oxygen increased to 3 L due to hypoxia noted on recent diagnostics per [facility], [place] Reports poorly controlled diabetes currently. Reports fasting blood sugars typically 250-275. She reports checking blood sugar before dinner and getting about the same results. Does not bring her meter to her visit today. She reports taking mealtime insulin 10 units for each meal and 10 units of Lantus once daily. She reports sores on her bottom which have been present for a while, has not yet healed She presents today reporting that she's been taking 11 units of Lantus twice daily. Continues with mealtime insulin unchanged. She brings her meter to her visit. Fasting blood sugars have been running in the 200s since last here. She reports difficulty with diet, limited funds She reports sores on the bottom of healed She reports abdominal discomfort and redness. No fever or drainage. She reports chronic pain of left knee, no prior surgeries, no injury, no significant swelling, range of motion unchanged, no falls, locking, crepitus is reported. PAST MEDICAL HISTORY Diagnosis Date - Allergic rhinitis used to receive allergy shots from Dr. Brown - Alopecia, unspecified 08/29/2012 - Anticoagulated on Coumadin INR goal 3.0 to 4.0 - Anxiety - Asthma - Benign neoplasm of stomach - Bipolar disorder, unspecified 08/29/2012 - Diabetes mellitus type 2, controlled, without complications (HCC) 08/12/2007 In records from treatment after elevated sugars in 2001 during hospital stay; no longer on any meds and sugars have been fine--either normal or just in impaired fasting glucose level - Embolism and thrombosis (HCC) 08/14/2005 - Environmental allergies 01/17/2012 - Exostosis of unspecified site 09/27/2010 - Fibromyalgia - Goiter, unspecified - Hypothyroidism 10/28/2009 - Nausea alone - Obesity - STACY treated with BiPAP [facility] supplier - Other diseases of lung, not elsewhere classified - Other hammer toe (acquired) 09/27/2010 - RA (rheumatoid arthritis) (HCC) - 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 also elevated BMI . RECOMMENDATIONS are 1.weight loss.2. not seen significant sleep apnea however absense or REM sleep sleep apnea may be understimated.Extrinsic factors leading to excessive daytime somnolence such as mood disturbances and or medication effect may be a factor PAST SURGICAL HISTORY Procedure Laterality Date - COLONOSCOP W/ OR W/O [facility] SPEC 4-18-13 Colonoscopy - EGD W/O OR W/BRUSH/WASH 02/25/2007 EGD - EGD W/O OR W/BRUSH/WASH 11/03/2011 EGD - PAST SURGICAL HISTORY OF [place] except cervix was left in; complicated with wound infection; [facility] - PAST SURGICAL HISTORY OF fundoplication May 1991 - PAST SURGICAL HISTORY OF right foot surgery on achilles tendon - PAST SURGICAL HISTORY OF 09/16/13 bone spur removed from right foot - PAST SURGICAL HISTORY OF 08/2014 Intrathecal pump implant for chronic back pain ([facility]) - PULMONARY FUNCTION TEST 05/04/05 - REMOVAL ADENOIDS,PRIMARY,<12 Y/O Adenoidectomy - REMOVAL GALLBLADDER 1990 Cholecystectomy - REMOVAL OF TONSILS,<12 Y/O Tonsillectomy - TOTAL ABDOM HYSTERECTOMY 2008 polycystic ovaries - UVULECTOMY EXCISION OF UVULA 2004 FAMILY HISTORY Problem Relation Age of Onset - Adopted: Yes - None Mother - Alcohol/Drug Father - None Sister BOWEL PROBLEMS Social History Substance Use Topics - Smoking status: Never Smoker - Smokeless tobacco: Never Used Comment: Parents briefly smoked in childhood home. - Alcohol use No ALLERGIES: ALLERGIES Allergen Reactions - Environmental [Othe* Rash, Cough - Vitamin K Swelling - Cholestyramine Other: See Comments constipation - Ibuprofen Diarrhea - Macrobid [Nitrofura* Rash states that broke out all over with rash last time was given this in September 2010 - Peroxide [Other] Intolerance - Sulfa (Sulfonamide * Rash - Tylenol [Acetaminop* Vomiting Nausea MEDICATIONS lisinopril (PRINIVIL) 10 mg tablet Take 1 tablet by mouth once daily. insulin glargine (LANTUS SOLOSTAR U-100 INSULIN) 100 unit/mL (3 mL) inpn Inject 12 Units subcutaneously twice daily. Chlorhexidine Gluconate (PERIDEX) 0.12 % solution Take 15 mL by mouth twice daily. as needed for tooth / mouth pain Hydrochlorothiazide 12.5 mg capsule Take 1 capsule by mouth once daily. topiramate (TOPAMAX) 100 mg tablet Take 100 mg by mouth twice daily. tiZANidine (ZANAFLEX) 2 mg tablet Take 1 tablet by mouth every 8 hours as needed (muscle spasms, neck pain and headache). May make drowsy rOPINIRole (REQUIP) 1 mg tablet Take 1 tablet by mouth four times daily. As directed Omeprazole 40 mg capsule Take 1 capsule by mouth once daily. clonazePAM (KLONOPIN) 1 mg tablet Take 0.5-1 tablets by mouth daily at bedtime for 90 days. enoxaparin (LOVENOX) 40 mg/0.4 mL syrg 40 mg subcutaneous every 12 hours starting August 12 in the morning; take only the morning dose August 14; do not take August 15 (day of procedure); resume 40 mg every 12 hours starting evening of August 16 ; continue until INR therapeutic Alpha Lipoic Acid 600 mg cap Take 1 capsule by mouth twice daily. insulin needles, DISPOSABLE, (BD INSULIN PEN NEEDLE UF) 31 gauge x 5/16 ndle Use with insulin pens 5 times daily, or as directed, Dx: E11.22 topiramate (TOPAMAX) 50 mg tablet Take 1 tablet by mouth three times daily. for headache melatonin 1 mg tablet Take 1 tablet by mouth daily at bedtime. insulin lispro (HUMALOG KWIKPEN INSULIN) 100 unit/mL inpn Inject 10 Units subcutaneously w MEALS. Three times daily loratadine (CLARITIN) 10 mg tablet Take 1 tablet by mouth once daily. verapamil (CALAN, ISOPTIN) 40 mg tablet Take 1 tablet by mouth three times daily. atorvastatin (LIPITOR) 10 mg tablet Take 1 tablet by mouth daily at bedtime. For cholesterol. dicyclomine (BENTYL) 10 mg capsule Take 1 capsule by mouth four times daily as needed (cramping pains and urgency with bowels). ondansetron (ZOFRAN) 4 mg tablet Take 1 tablet by mouth every 8 hours as needed for Nausea/Vomiting. levothyroxine (LEVOXYL) 100 mcg tablet Take 1 tablet by mouth daily before breakfast. blood sugar diagnostic (TRUE METRIX GLUCOSE TEST STRIP) test strip Test blood sugar 4 x daily. Dx: E11.22. Insulin use: Yes adalimumab (HUMIRA) 40 mg/0.8 mL injection Inject 40 mg subcutaneously one time only. nystatin (MYCOSTATIN) 100,000 unit/mL suspension 1 tsp swish and swallow until gone, 4 times daily fluticasone (FLONASE) 50 mcg/actuation nasal spray Use 1-2 Sprays in each nostril once daily. Cetirizine (ZYRTEC) 10 mg cap Take by mouth daily at bedtime. fluticasone-vilanterol (BREO ELLIPTA) 200-25 mcg/dose inhaler Inhale 1 Inhalation as instructed once daily. albuterol HFA (PROVENTIL HFA, VENTOLIN HFA) 90 mcg/actuation inhaler Inhale 2 Puffs as instructed every 4 hours as needed (for cough, wheezing, chest tightness or shortness of breath. Use with spacer. ). Benzonatate 200 mg capsule Take 1 capsule by mouth three times daily as needed. triamcinolone acetonide (KENALOG) 0.1 % cream Apply 1 application to affected area three times daily as needed (itchy rash/psoriasis on hands). Apply sparingly insulin needles, DISPOSABLE, (UNIFINE PENTIPS) 31 gauge x 5/16 ndle Inject 1 Each subcutaneously four times daily. cholecalciferol (VITAMIN D3) 5,000 unit tab Take 1 tablet by mouth once daily. warfarin (COUMADIN) 7.5 mg tablet Take 1 tablet by mouth daily as directed. warfarin (COUMADIN) 5 mg tablet Take 1 tablet by mouth once daily. SHENG - 7.5mg , sun and 5mg all other days or as directed multivitamin with minerals (HAIR,SKIN AND NAILS) tablet Take 1 tablet by mouth three times daily. alpha tocopheryl acetate (VITAMIN E) 400 unit capsule Take 2 capsules by mouth once daily. sucralfate (CARAFATE) 100 mg/mL suspension Take 10 mL by mouth four times daily as needed. As directed (usually before meals and bedtime as needed) COMPOUNDED PRESCRIPTION SHOWER CHAIR WITH BACK DX M06.9 I74.9 COMPOUNDED PRESCRIPTION SUCTION STYLE GRAB BAR FOR SHOWER WALL INSTALLATION DX M 06.9 I 74.9 albuterol HFA (PROAIR HFA) 90 mcg/actuation inhaler Inhale 2 Puffs as instructed every 4 hours as needed for Wheezing/Shortness of Breath. COUMADIN 1 mg tablet take 5mg daily except for Sunday, take 7.5 mg on Sunday or as directedDO NOT SUBSITUTE WITH GENERIC. QUEtiapine (SEROQUEL) 25 mg tablet Take 1 tablet by mouth twice daily. albuterol (PROVENTIL) 2.5 mg /3 mL (0.083 %) nebulizer solution Use 3 mL via nebulizer every 6 hours as needed. Blood Pressure Test Kit-Wrist kit Use to check blood pressure once daily as directed DX:I10 hydroxychloroquine (PLAQUENIL) 200 mg tablet Take 1 tablet by mouth once daily. CALCIUM CARB/MAGNESIUM OX,CARB (YASMINE-MAG ORAL) Take by mouth. nystatin (MYCOSTATIN) cream Apply 1 application to affected area twice daily. As needed escitalopram oxalate (LEXAPRO) 20 mg tablet Take 1 tablet by mouth once daily. COMPOUNDED PRESCRIPTION Morphine 15 mg per pump filled every [address] Wetzel Lactobacillus acidophilus (PROBIOTIC) 10 billion cell cap Take 2 tablets by mouth daily at bedtime. vitamin b complex (B COMPLETE) tab Take 1 tablet by mouth once daily. COMPOUNDED PRESCRIPTION Decrease BiPAP settings to 11/5 cmH2O. Diagnosis G47.33 Miscellaneous Medical Supply [facility] [place] CUSTOM JOBST KNEE HI COMPRESSION STOCKING 30-40MM/HG. Dispense 2 pair Diagnosis:(I87.2) Venous insufficiency of both lower extremities; (R60.9) Edema ketoconazole (NIZORAL) 2 % cream Apply 1 application to affected area once daily. as needed to corners of lips and other rash as directed [place]-3 Fatty Acids-Vitamin E (FISH OIL) 1,000 mg cap Take 1 capsule by mouth three times daily. cephALEXin (KEFLEX) 500 mg capsule Take 1 capsule by mouth four times daily for 10 days. Take with food budesonide-formoterol (SYMBICORT) 160-4.5 mcg/actuation inhaler Inhale 2 Puffs as instructed twice daily. REVIEW OF SYSTEMS: GENERAL: Negative for: Weight loss or gain, Fever or Chills, Weakness .She reports difficulty sleeping currently due to going through divorce Physical Examination: BP 122/80 Pulse 88 Resp 16 Ht 5' 0 (1.52m) Wt 282 lb (127.9kg) BMI 55.07 kg/(m2). BP w/Orthostatic Vitals Date and Time Orthostatic BP Orthostatic Pulse BP Pulse BP Position BP Site BP Cuff Size 10/14/18 1040 -- -- 144/90 -- Sitting Right Arm Regular Adult 10/14/18 1032 -- -- 142/90 (!) 24 Sitting Right Arm Regular Adult Peak Flow Date and Time PF Resp 10/14/18 1032 -- 16 General appearance: Well appearing, alert, in no acute distress, obese, well-hydrated, well nourished. Skin: Skin color, texture, turgor normal, no suspicious rashes + 2 1 diameter partial thickness wounds with red bases, no drainage or surrounding erythema or warmth one on each side of april cleft Lungs: Lungs clear to auscultation. No wheezing, rhonchi, rales Heart: RRR without murmur, gallop, or rubs. Abdomen: Abdomen Large soft, with pannus, tender to palpation, mild erythema from umbilicus to bottom of pannus, no drainage, no warmth. Bowel sounds normal. No masses, organomegaly Extremities: No edema, skin discoloration, clubbing or cyanosis. Good capillary refill. Left knee with no crepitus appreciated, no swelling, no pain with ROM noted, not TTP. Peripheral pulses: Normal Neuro: Gait normal. Sensation grossly intact. Reviewed chart, outside records, tests I personally interviewed, confirmed and edited the above information if obtained by others. TESTING: Glucose (mg/dL) Date Value 10/19/2018 292 Potassium (mmol/L) Date Value 10/19/2018 4.9 Sodium (mmol/L) Date Value 10/19/2018 139 Chloride (mmol/L) Date Value 10/19/2018 101 CO2 (mmol/L) Date Value 10/19/2018 25 Creatinine (mg/dL) Date Value 10/19/2018 1.32 BUN (mg/dL) Date Value 10/19/2018 24 Anion Gap (mmol/L) Date Value 10/19/2018 13 Calcium (mg/dL) Date Value 10/19/2018 9.6 Glucose (mg/dL) Date Value 10/19/2018 292 Potassium (mmol/L) Date Value 10/19/2018 4.9 Sodium (mmol/L) Date Value 10/19/2018 139 Chloride (mmol/L) Date Value 10/19/2018 101 CO2 (mmol/L) Date Value 10/19/2018 25 Creatinine (mg/dL) Date Value 10/19/2018 1.32 BUN (mg/dL) Date Value 10/19/2018 24 Anion Gap (mmol/L) Date Value 10/19/2018 13 Calcium (mg/dL) Date Value 10/19/2018 9.6 Protein, Total (g/dL) Date Value 04/12/2018 7.0 Albumin (g/dL) Date Value 04/12/2018 4.2 Bilirubin, Total (mg/dL) Date Value 04/12/2018 0.3 Alkaline Phosphatase (U/L) Date Value 04/12/2018 92 AST (U/L) Date Value 04/12/2018 43 ALT (U/L) Date Value 04/12/2018 49 Hemoglobin (g/dL) Date Value 11/13/2017 14.4 Hematocrit (%) Date Value 11/13/2017 42.9 WBC (k/uL) Date Value 11/13/2017 5.35 Cholesterol, Total (mg/dL) Date Value 04/12/2018 284 HDL Cholesterol (mg/dL) Date Value 04/12/2018 52 LDL Cholesterol (mg/dL) Date Value 04/12/2018 163 Triglyceride (mg/dL) Date Value 04/12/2018 343 Hemoglobin A1C Date Value Ref Range Status 08/09/2018 5.8 (H) 4.3 - 5.6 % Final 04/12/2018 8.4 (H) 4.3 - 5.6 % Final 11/13/2017 8.4 (H) 4.3 - 5.6 % Final 07/28/2017 7.1 (H) 4.3 - 5.6 % Final Comment: [place] [employer] guidelines indicate that patients with HgbA1c in the range 5.7-6.4% are at increased risk for development of diabetes, and intervention by lifestyle modification may be beneficial. HgbA1c greater or equal to 6.5% is considered diagnostic of diabetes. 03/12/2017 9.6 (H) 4.3 - 5.6 % Final Comment: [place] [employer] guidelines indicate that patients with HgbA1c in the range 5.7-6.4% are at increased risk for development of diabetes, and intervention by lifestyle modification may be beneficial. HgbA1c greater or equal to 6.5% is considered diagnostic of diabetes. Component Latest Ref Rng AND Units 06/28/2018 10/07/2018 10/19/2018 Glucose 74 - 99 mg/dL 174 (H) 242 (H) 292 (H) BUN 7 - 21 mg/dL 17 18 24 (H) Creatinine 0.58 - 0.96 mg/dL 1.20 (H) 1.23 (H) 1.32 (H) Sodium 136 - 144 mmol/L 143 139 139 Potassium 3.7 - 5.1 mmol/L 4.1 3.8 4.9 Chloride 97 - 105 mmol/L 107 (H) 103 101 CO2 22 - 30 mmol/L 20 (L) 19 (L) 25 Anion Gap 9 - 18 mmol/L 16 17 13 Calcium 8.5 - 10.2 mg/dL 9.8 10.1 9.6 eGFR- 57 56 51 eGFR-All Other Races . 47 46 42 PT Sec 9.7 - 13.0 sec 14.2 (H) PT INR 0.9 - 1.3 1.4 (H) Vitamin D 25 Hydroxy 31.0 - 80.0 ng/mL 23.7 (L) TSH 0.400 - 5.500 uU/mL 2.490 Free T4 0.9 - 1.7 ng/dL 1.0 Ejection Fraction: No results found IMPRESSION: Ms. Meyers is a 53 year old woman presents for follow up of hypertension. After my examination and review of data, I make the following recommendations. PLAN AND RECOMMENDATIONS: 1. Cellulitis of abdominal wall - ICD9: 682.2, ICD10: L03.311 (primary diagnosis) - Begin treatment with Cephalaxin (Keflex) - No lymphangetic streaking, this was defined for patient to watch for and to seek medical care immediately if appears - Follow up for recheck - CEPHALEXIN 500 MG CAPSULE 2. Essential hypertension - ICD9: 401.9, ICD10: I10 - good control - Continue current medication(s) - Encouraged dietary sodium restriction/DASH diet - Recommended regular aerobic exercise. - Recommend home blood pressure monitoring, to bring results in on next visit - Goal of BP <130/80 3. Type 2 DM with CKD stage 3 and hypertension (HCC) - ICD9: 250.40, 403.90, 585.3, ICD10: E11.22, I12.9, N18.3 - suboptimal control - Increase Lantus from 11 units BID to 12 units BID - Recommended regular aerobic exercise. - Recommend home blood pressure monitoring, to bring results in on next visit - Goal of BP <130/80 - HGB A1C at next visit,most recent well controlled 4. Chronic pain of left knee - ICD9: 719.46, 338.29, ICD10: M25.562, G89.29 - CONSULT TO ORTHOPAEDICS 5. Morbid obesity due to excess calories (HCC) - ICD9: 278.01, ICD10: E66.01 transformation coach is advised, deferred due to expense, declines to see financial counselor due to current social stress / divorce. Advise: Increase lantus to 12 units morning and evening Start taking Keflex with food for abdominal pain / infection See financial counselor about appt with transformation coach Increase fluid intake Advised to go to ER if develops chest pain, shortness of breath, or severe worsening of symptoms. Discussed risks, benefits, alternatives, and potential side effects of medications. Ms. Meyers expressed understanding and agreed with the plan. Trish Ramírez APRN.HISTOLOGY TEACHER Referring Provider: SELF [200] Allergies As of Date: 10/22/2018 Noted Allergy Reaction environmental [Other] 07/14/2005 2 - Rash 3 - Cough VITAMIN K 07/14/2005 7 - Swelling CHOLESTYRAMINE 03/31/2013 14 - Other: See Comments Comments: constipation IBUPROFEN 06/29/2009 6 - Diarrhea MACROBID (NITROFURANTOIN MONOHYD/*12/06/2010 2 - Rash Comments: states that broke out all over with rash last time was given this in September 2010 peroxide [Other] 07/14/2005 5 - Intolerance SULFA (SULFONAMIDE ANTIBIOTICS) 02/05/2013 2 - Rash TYLENOL (ACETAMINOPHEN) 03/17/2014 11 - Vomiting Comments: Nausea Date Reviewed: 10/22/2018 Reviewed by: Portia Bennett LPN - Fully Assessed Reason for Visit: Blood Pressure [15] Primary Visit Diagnosis:Cellulitis of abdominal wall [L03.311] Other Visit Diagnoses:Essential hypertension [I10] Type 2 DM with CKD stage 3 and hypertension (HCC) [E11.22, I12.9, N18.3] Chronic pain of left knee [M25.562, G89.29] Morbid obesity due to excess calories (HCC) [E66.01] Order(s):CONSULT TO NUTRITION THERAPY [9034] Order #: [id number]: 1 cephALEXin (KEFLEX) 500 mg capsuleTake 1 capsule by mouth four times daily for 10 days. Take with foodDisp: 40 capsuleRfl: 0 HGB A1C [[id number]] Order #: [id number] FUTURE CONSULT TO ORTHOPAEDICS [9055] Order #: [id number]: 1 Prescriptions as of 10/22/2018 Sig: LISINOPRIL 10 MG TABLET Take 1 tablet by mouth once d* INSULIN GLARGINE (U-100) 100 * Inject 12 Units subcutaneousl* CHLORHEXIDINE GLUCONATE 0.12 * Take 15 mL by mouth twice trista* HYDROCHLOROTHIAZIDE 12.5 MG C* Take 1 capsule by mouth once * TOPIRAMATE 100 MG TABLET Take 100 mg by mouth twice da* TIZANIDINE 2 MG TABLET Take 1 tablet by mouth every * ROPINIROLE 1 MG TABLET Take 1 tablet by mouth four t* OMEPRAZOLE 40 MG CAPSULE,LALITO* Take 1 capsule by mouth once * CLONAZEPAM 1 MG TABLET Take 0.5-1 tablets by mouth d* ENOXAPARIN 40 MG/0.4 ML SUBCU* 40 mg subcutaneous every 12 h* ALPHA LIPOIC ACID 600 MG CAPS* Take 1 capsule by mouth twice* PEN NEEDLE, DIABETIC 31 GAUGE* Use with insulin pens 5 times* TOPIRAMATE 50 MG TABLET Take 1 tablet by mouth three * MELATONIN 1 MG TABLET Take 1 tablet by mouth daily * INSULIN LISPRO (U-100) 100 UN* Inject 10 Units subcutaneousl* LORATADINE 10 MG TABLET Take 1 tablet by mouth once d* VERAPAMIL 40 MG TABLET Take 1 tablet by mouth three * ATORVASTATIN 10 MG TABLET Take 1 tablet by mouth daily * DICYCLOMINE 10 MG CAPSULE Take 1 capsule by mouth four * ONDANSETRON HCL 4 MG TABLET Take 1 tablet by mouth every * LEVOTHYROXINE 100 MCG TABLET Take 1 tablet by mouth daily * BLOOD SUGAR DIAGNOSTIC STRIPS Test blood sugar 4 x daily. D* ADALIMUMAB 40 MG/0.8 ML SUBCU* Inject 40 mg subcutaneously o* NYSTATIN 100,000 UNIT/ML ORAL* 1 tsp swish and swallow until* FLUTICASONE 50 MCG/ACTUATION * Use 1-2 Sprays in each nostri* CETIRIZINE 10 MG CAPSULE Take by mouth daily at bedtim* FLUTICASONE 200 MCG-VILANTERO* Inhale 1 Inhalation as instru* ALBUTEROL SULFATE HFA 90 MCG/* Inhale 2 Puffs as instructed * BENZONATATE 200 MG CAPSULE Take 1 capsule by mouth three* TRIAMCINOLONE ACETONIDE 0.1 %* Apply 1 application to affect* PEN NEEDLE, DIABETIC 31 GAUGE* Inject 1 Each subcutaneously * CHOLECALCIFEROL (VITAMIN D3) * Take 1 tablet by mouth once d* WARFARIN 7.5 MG TABLET Take 1 tablet by mouth daily * WARFARIN 5 MG TABLET Take 1 tablet by mouth once d* MULTIVITAMIN WITH MINERALS TA* Take 1 tablet by mouth three * VITAMIN E 400 UNIT CAPSULE Take 2 capsules by mouth once* SUCRALFATE 100 MG/ML ORAL BART* Take 10 mL by mouth four time* COMPOUNDED PRESCRIPTION SHOWER CHAIR WITH BACK D* COMPOUNDED PRESCRIPTION SUCTION STYLE GRAB BAR FOR SH* ALBUTEROL SULFATE HFA 90 MCG/* Inhale 2 Puffs as instructed * COUMADIN 1 MG TABLET take 5mg daily except for Sun* QUETIAPINE 25 MG TABLET Take 1 tablet by mouth twice * ALBUTEROL SULFATE 2.5 MG/3 ML* Use 3 mL via nebulizer every * BLOOD PRESSURE TEST KIT-WRIST* Use to check blood pressure o* HYDROXYCHLOROQUINE 200 MG TAB* Take 1 tablet by mouth once d* YASMINE-MAG ORAL Take by mouth. NYSTATIN 100,000 UNIT/GRAM TO* Apply 1 application to affect* ESCITALOPRAM 20 MG TABLET Take 1 tablet by mouth once d* COMPOUNDED PRESCRIPTION Morphine 15 mg per pump fille* LACTOBACILLUS ACIDOPHILUS 10 * Take 2 tablets by mouth daily* VITAMIN B COMPLEX TABLET Take 1 tablet by mouth once d* COMPOUNDED PRESCRIPTION Decrease BiPAP settings to 11* MISCELLANEOUS MEDICAL SUPPLY * CUSTOM JOBST KNEE HI KIRSTY* KETOCONAZOLE 2 % TOPICAL CREAM Apply 1 application to affect* OMEGA-3 FATTY ACIDS-VITAMIN E* Take 1 capsule by mouth three* CEPHALEXIN 500 MG CAPSULE Take 1 capsule by mouth four * BUDESONIDE-FORMOTEROL HFA 160* Inhale 2 Puffs as instructed * Patient not taking: Reported on 10/22/2018 Problem List As Of Date 10/22/2018 Noted Resolved OTHER LUNG DISEASE NEC [J98.4] Asthma [J45.909] OTHER UNSPEC SLEEP APNEA [G47.30] Dysmetabolic syndrome X [E88.81] 09/11/2011 Fibromyalgia [M79.7] Embolism and thrombosis (HCC) [I74.9] INVALID FOR*05/05/2018 GOITER NOS [E04.9] REFLUX ESOPHAGITIS [K21.0] NAUSEA ALONE [R11.0] ACUTE GASTRITIS W/O HEMORRHAGE [K29.00] INVALID FOR* CONSTIPATION NOS [K59.00] INVALID FOR* More... 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 Obstructive Sleep Apnea [G47.33] INVALID FOR* More... Hypothyroidism [E03.9] INVALID FOR* Exostosis of unspecified site [M89.8X9] INVALID FOR*11/27/2017 Other hammer toe (acquired) [M20.40] INVALID FOR*11/27/2017 Hx of hysterectomy [Z90.710] INVALID FOR* More... Allergic rhinitis [J30.9] More... 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] INVALID FOR* Environmental allergies [Z91.09] INVALID FOR*11/27/2017 Morbid obesity due to excess calories (HCC) [E6* Chronic kidney disease, stage III (moderate) [N*INVALID FOR*11/27/2017 Essential hypertension [I10] INVALID FOR* Nephrolithiasis [N20.0] INVALID FOR* Vitamin D deficiency [E55.9] INVALID FOR* Rheumatoid arthritis (HCC) [M06.9] INVALID FOR* Bipolar disorder, unspecified [F31.9] INVALID FOR* Alopecia, unspecified [L65.9] INVALID FOR*11/27/2017 Personal history of pulmonary embolism [Z86.711]INVALID FOR* Irritable bowel syndrome [K58.9] INVALID FOR* Neuropathy [G62.9] INVALID FOR* Incisional hernia [K43.2] INVALID FOR* Polycythemia, secondary [D75.1] INVALID FOR* Anticoagulated on Coumadin [Z51.81, Z79.01] INVALID FOR* STACY treated with BiPAP [G47.33] More... Type 2 DM with CKD stage 3 and hypertension (HC*INVALID FOR* Polypharmacy [Z79.899] INVALID FOR* Noncompliance with treatment [Z91.19] INVALID FOR* CKD (chronic kidney disease) stage 4, GFR 15-29*INVALID FOR*08/26/2017 Nonallergic rhinitis [J31.0] INVALID FOR* History of deep vein thrombosis [Z86.718] INVALID FOR* Hypoxemia [R09.02] INVALID FOR* More... Acute kidney injury superimposed on chronic kid*INVALID FOR* Metabolic encephalopathy [G93.41] INVALID FOR* Hyperkalemia [E87.5] INVALID FOR* Abdominal pannus [E65] INVALID FOR* Anxiety [F41.9] Other instructions from your clinician: Increase lantus to 12 units morning and evening Start taking Keflex with food for abdominal pain / infection See financial counselor about appt with transformation coach Increase fluid intake Prescriptions ordered this encounter Disp Refills Start End CEPHALEXIN 500 MG CAPSULE 40 c* 0 10/22/2018 11/01/2018 Route: ORAL Sig: Take 1 capsule by mouth four times daily for 10 days. Take with food Encounter Status:Closed by TRISH JACKSON on 10/22/18 PROTIME Collected: 10/19/2018 Status: F Source: [facility] 11:45 AM [facility] REPOSITORY TYPE CODE TESTS RESULT OUT OF RANGE REFERENCE UNITS LAB PSEC 9.7-13.0 sec High PT Sec 14.2 LAB INR 0.9-1.3 High PT INR 1.4 Result Comment: Vitamin K Antagonist (VKA) Therapeutic Range: INR 2 to 3 (Target INR of 2.5) Note: For patients treated with VKA drugs, such as warfarin, the [place] [employer] 2012 Guideline recommends a therapeutic INR range of 2 to 3 (target INR of 2.5). This recommendation includes high-risk patients with antiphospholipid syndrome with previous arterial or venous thromboembolism, current-generation mechanical or bioprosthetic aortic heart valve replacement. Note: Patients with mechanical aortic valve replacement and additional risk factors for thromboembolic events (atrial fibrillation, previous thromboembolism, LV dysfunction, hypercoagulable conditions) or an older generation mechanical AVR (i.e., ball in-Cage) or any mechanical MVR should have a INR therapeutic range of 2.5 to 3.5 (target INR of 3). Dejuan HAMILTON, et al. Chest 2012, 141:7S-47S Ginette SEGURA, et al. [facility] 2017, 70: 252-289 Performed By: #### PT, BMP, FT4, TSH, VITD #### [facility] [address] [place] [id number] BASIC METABOLIC PANL Collected: 10/19/2018 Status: F Source: [place] 11:45 AM [facility] REPOSITORY TYPE CODE TESTS RESULT OUT OF REFERENCE UNITS RANGE LAB GLU 74-99 mg/dL High Glucose 292 Result Comment: The [place] Diabetes Association (ADA) provides guidance for cutoff values for fasting glucose and random glucose. The ADA defines fasting as no caloric intake for at least 8 hours. Fas ting plasma glucose results between 100 to 125 mg/dL indicate increased risk for diabetes (prediabetes). Fasting plasma glucose results greater than or equal to 126 mg/dL meet the criteria for diagnosis of diabetes. In the absence of unequivocal hyperglycemia, results should be confirmed by repeat testing. In a patient with classic symptoms of hyperglycemia or hyperglycemic crisis, random plasma glucose results greater than or equal to 200 mg/dL meet the criteria for diagnosis of diabetes. Reference: Standards of Medical Care in Diabetes 2016, [place] [employer] Association. Diabetes Care. 2016.39(Suppl 1). LAB BUN 7-21 mg/dL BUN High 24 LAB CRET 0.58-0.96 mg/dL Creatinine High 1.32 LAB NA 136-144 mmol/L Sodium 139 LAB K 3.7-5.1 mmol/L Potassium 4.9 LAB CL 97-105 mmol/L Chloride 101 LAB CO2 22-30 mmol/L CO2 25 LAB AGAP 9-18 mmol/L Anion Gap 13 LAB CA 8.5-10.2 mg/dL Calcium, Total 9.6 LAB GFRAA eGFR- Amer. 51 LAB GFRNAA . eGFR-All Other Races 42 Result Comment: eGFR (Estimated GFR) Units of measure: mL/min/1.73 meters squared eGFR is derived from the reexpressed MDRD Study equation using the following parameters: serum creatinine, age, gender and race. The creatinine assay has been calibrated to be traceable to IDMS. An eGFR <60 mL/min/1.73m2 for >3 months is consistent with chronic kidney disease. Refer to KDOQI guidelines for clinical interpretation. In patients with unstable renal function, e.g. those with acute kidney injury, the eGFR may not accurately reflect actual GFR. Performed By: #### PT, BMP, FT4, TSH, VITD #### [facility] [address] [place] [id number] FREE T4 Collected: 10/19/2018 Status: F Source: [place] 11:45 AM [facility] REPOSITORY TYPE CODE TESTS RESULT OUT OF RANGE REFERENCE UNITS LAB FT4 0.9-1.7 ng/dL Free T4 1.0 Performed By: #### PT, BMP, FT4, TSH, VITD #### [facility] [address] [place] [address] TSH Collected: 10/19/2018 Status: F Source: [place] 11:45 AM [facility] REPOSITORY TYPE CODE TESTS RESULT OUT OF RANGE REFERENCE UNITS LAB TSH 0.400-5.500 uU/mL TSH 2.490 Performed By: #### PT, BMP, FT4, TSH, VITD #### [facility] [address] [place] [address] VITAMIN D 25 HYDROXY Collected: 10/19/2018 Status: F Source: [place] 11:45 AM [facility] REPOSITORY TYPE CODE TESTS RESULT OUT OF REFERENCE UNITS RANGE LAB VITD 31.0-80.0 ng/mL Low Vitamin D 25 23.7 Hydroxy Result Comment: Classification of 25 OH Vitamin D status: Insufficiency/Moderate Deficiency: < or = 30 ng/mL Sufficiency/Optimal Levels: 31 to 80 ng/mL Toxicity: > 100 ng/mL Test performed by chemiluminescent immunoassay. Performed By: #### PT, BMP, FT4, TSH, VITD #### [facility] [address] [place] [id number] PROGRESS Observed: 10/14/2018 Status: COMPLETED Source: [place] 11:29 AM [facility] [place] REPOSITORY HNO ID: [id number] Author: Trish Ramírez (Cns) Service: (none) Author Type: Nurse Specialist Type: Progress Notes Filed: 10/14/2018 1:56 PM Note Text: . PROGRESS Observed: 10/14/2018 Status: COMPLETED Source: [place] 11:17 AM [facility] [place] REPOSITORY HNO ID: [id number] Author: Trish Ramírez (Cns) Service: (none) Author Type: Nurse Specialist Type: Progress Notes Filed: 10/14/2018 1:56 PM Note Text: OUTPATIENT VISIT DATE October 14, 2018 OUTPATIENT VISIT TYPE ESTABLISHED PRIMARY CARE PHYSICIAN: Livia Scott MD CHIEF COMPLAINT: Patient presents with: Hypertension Blood Sugar Elevation Cough Imm/Inj: Flu Vaccine History of Present Illness: Debora Meyers is a 53 year old female who was last seen 09/06/2017 She has been seen in the past for ACTIVE PROBLEM LIST Other Diseases of Lung, Not Elsewhere Classified Asthma Unspecified Sleep Apnea Fibromyalgia Goiter, Unspecified Reflux Esophagitis Nausea Alone Acute Gastritis Without Mention of Hemorrhage Unspecified Constipation Mixed Hyperlipidemia Hypopotassemia Disorder of Hypothalamus (Hcc) Obstructive Sleep Apnea Hypothyroidism Hx of Hysterectomy Allergic Rhinitis Benign Neoplasm of Stomach Morbid Obesity Due to Excess Calories (Hcc) Essential Hypertension Nephrolithiasis Vitamin D Deficiency Rheumatoid Arthritis (Hcc) Bipolar Disorder, Unspecified (Hcc) Personal History of Pulmonary Embolism Irritable Bowel Syndrome Neuropathy (Hcc) Incisional Hernia Polycythemia, Secondary Anticoagulated On Coumadin Stacy Treated With Bipap Type 2 Dm With Ckd Stage 3 and Hypertension (Hcc) Polypharmacy Noncompliance With Treatment Nonallergic Rhinitis History of Deep Vein Thrombosis Hypoxemia Acute Kidney Injury Superimposed On Chronic Kidney Disease (Hcc) Metabolic Encephalopathy Hyperkalemia Abdominal Pannus Anxiety At her last visit was resumed on blood pressure medications. She reports consistently taking blood pressure medication. Takes typically in the middle of day. No adverse effects of medications noted. Without report of chest pain shortness breath dizziness lightheadedness palpitations Since the last visit, she states that she continues to be under stress going through divorce. She brings in forms from [facility] [place] when he did complete INR at home. Livia Scott MD to sign off. Reports using BiPAP, oxygen increased to 3 L due to hypoxia noted on recent diagnostics per [facility] [place] Reports poorly controlled diabetes currently. Reports fasting blood sugars typically 250-275. She reports checking blood sugar before dinner and getting about the same results. Does not bring her meter to her visit today. She reports taking mealtime insulin 10 units for each meal and 10 units of Lantus once daily. She reports sores on her bottom which have been present for a while, has not yet healed PAST MEDICAL HISTORY Diagnosis Date - Allergic rhinitis used to receive allergy shots from Dr. Brown - Alopecia, unspecified 08/29/2012 - Anticoagulated on Coumadin INR goal 3.0 to 4.0 - Anxiety - Asthma - Benign neoplasm of stomach - Bipolar disorder, unspecified 08/29/2012 - Diabetes mellitus type 2, controlled, without complications (HCC) 08/12/2007 In records from treatment after elevated sugars in 2001 during hospital stay; no longer on any meds and sugars have been fine--either normal or just in impaired fasting glucose level - Embolism and thrombosis (HCC) 08/14/2005 - Environmental allergies 01/17/2012 - Exostosis of unspecified site 09/27/2010 - Fibromyalgia - Goiter, unspecified - Hypothyroidism 10/28/2009 - Nausea alone - Obesity - STACY treated with BiPAP [facility] [place] supplier - Other diseases of lung, not elsewhere classified - Other hammer toe (acquired) 09/27/2010 - RA (rheumatoid arthritis) (HCC) - 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 also elevated BMI . RECOMMENDATIONS are 1.weight loss.2. not seen significant sleep apnea however absense or REM sleep sleep apnea may be understimated.Extrinsic factors leading to excessive daytime somnolence such as mood disturbances and or medication effect may be a factor PAST SURGICAL HISTORY Procedure Laterality Date - COLONOSCOP W/ OR W/O BRSH SPEC 03-06-13 Colonoscopy - EGD W/O OR W/BRUSH/WASH 02/25/2007 EGD - EGD W/O OR W/BRUSH/WASH 11/03/2011 EGD - PAST SURGICAL HISTORY OF [place] except cervix was left in; complicated with wound infection; [facility] - PAST SURGICAL HISTORY OF fundoplication May 1991 - PAST SURGICAL HISTORY OF right foot surgery on achilles tendon - PAST SURGICAL HISTORY OF 09/16/13 bone spur removed from right foot - PAST SURGICAL HISTORY OF 08/2014 Intrathecal pump implant for chronic back pain ([facility]) - PULMONARY FUNCTION TEST 05/04/05 - REMOVAL ADENOIDS,PRIMARY,<12 Y/O Adenoidectomy - REMOVAL GALLBLADDER 1990 Cholecystectomy - REMOVAL OF TONSILS,<12 Y/O Tonsillectomy - TOTAL ABDOM HYSTERECTOMY 2008 polycystic ovaries - UVULECTOMY EXCISION OF UVULA 2004 FAMILY HISTORY Problem Relation Age of Onset - Adopted: Yes - None Mother - Alcohol/Drug Father - None Sister BOWEL PROBLEMS Social History Substance Use Topics - Smoking status: Never Smoker - Smokeless tobacco: Never Used Comment: Parents briefly smoked in childhood home. - Alcohol use No ALLERGIES: ALLERGIES Allergen Reactions - Environmental [Othe* Rash, Cough - Vitamin K Swelling - Cholestyramine Other: See Comments constipation - Ibuprofen Diarrhea - Macrobid [Nitrofura* Rash states that broke out all over with rash last time was given this in September 2010 - Peroxide [Other] Intolerance - Sulfa (Sulfonamide * Rash - Tylenol [Acetaminop* Vomiting Nausea MEDICATIONS lisinopril (PRINIVIL) 10 mg tablet Take 1 tablet by mouth once daily. Hydrochlorothiazide 12.5 mg capsule Take 1 capsule by mouth once daily. topiramate (TOPAMAX) 100 mg tablet Take 100 mg by mouth twice daily. tiZANidine (ZANAFLEX) 2 mg tablet Take 1 tablet by mouth every 8 hours as needed (muscle spasms, neck pain and headache). May make drowsy insulin glargine (LANTUS SOLOSTAR U-100 INSULIN) 100 unit/mL (3 mL) inpn Inject 10 Units subcutaneously twice daily. rOPINIRole (REQUIP) 1 mg tablet Take 1 tablet by mouth four times daily. As directed Omeprazole 40 mg capsule Take 1 capsule by mouth once daily. clonazePAM (KLONOPIN) 1 mg tablet Take 0.5-1 tablets by mouth daily at bedtime for 90 days. enoxaparin (LOVENOX) 40 mg/0.4 mL syrg 40 mg subcutaneous every 12 hours starting August 12 in the morning; take only the morning dose August 14; do not take August 15 (day of procedure); resume 40 mg every 12 hours starting evening of August 16 ; continue until INR therapeutic Alpha Lipoic Acid 600 mg cap Take 1 capsule by mouth twice daily. insulin needles, DISPOSABLE, (BD INSULIN PEN NEEDLE UF) 31 gauge x 5/16 ndle Use with insulin pens 5 times daily, or as directed, Dx: E11.22 topiramate (TOPAMAX) 50 mg tablet Take 1 tablet by mouth three times daily. for headache melatonin 1 mg tablet Take 1 tablet by mouth daily at bedtime. insulin lispro (HUMALOG KWIKPEN INSULIN) 100 unit/mL inpn Inject 10 Units subcutaneously w MEALS. Three times daily loratadine (CLARITIN) 10 mg tablet Take 1 tablet by mouth once daily. verapamil (CALAN, ISOPTIN) 40 mg tablet Take 1 tablet by mouth three times daily. atorvastatin (LIPITOR) 10 mg tablet Take 1 tablet by mouth daily at bedtime. For cholesterol. dicyclomine (BENTYL) 10 mg capsule Take 1 capsule by mouth four times daily as needed (cramping pains and urgency with bowels). ondansetron (ZOFRAN) 4 mg tablet Take 1 tablet by mouth every 8 hours as needed for Nausea/Vomiting. levothyroxine (LEVOXYL) 100 mcg tablet Take 1 tablet by mouth daily before breakfast. blood sugar diagnostic (TRUE METRIX GLUCOSE TEST STRIP) test strip Test blood sugar 4 x daily. Dx: E11.22. Insulin use: Yes adalimumab (HUMIRA) 40 mg/0.8 mL injection Inject 40 mg subcutaneously one time only. nystatin (MYCOSTATIN) 100,000 unit/mL suspension 1 tsp swish and swallow until gone, 4 times daily fluticasone (FLONASE) 50 mcg/actuation nasal spray Use 1-2 Sprays in each nostril once daily. Cetirizine (ZYRTEC) 10 mg cap Take by mouth daily at bedtime. fluticasone-vilanterol (BREO ELLIPTA) 200-25 mcg/dose inhaler Inhale 1 Inhalation as instructed once daily. albuterol HFA (PROVENTIL HFA, VENTOLIN HFA) 90 mcg/actuation inhaler Inhale 2 Puffs as instructed every 4 hours as needed (for cough, wheezing, chest tightness or shortness of breath. Use with spacer. ). Benzonatate 200 mg capsule Take 1 capsule by mouth three times daily as needed. triamcinolone acetonide (KENALOG) 0.1 % cream Apply 1 application to affected area three times daily as needed (itchy rash/psoriasis on hands). Apply sparingly insulin needles, DISPOSABLE, (UNIFINE PENTIPS) 31 gauge x 5/16 ndle Inject 1 Each subcutaneously four times daily. warfarin (COUMADIN) 7.5 mg tablet Take 1 tablet by mouth daily as directed. warfarin (COUMADIN) 5 mg tablet Take 1 tablet by mouth once daily. SHENG - 7.5mg , sun and 5mg all other days or as directed multivitamin with minerals (HAIR,SKIN AND NAILS) tablet Take 1 tablet by mouth three times daily. alpha tocopheryl acetate (VITAMIN E) 400 unit capsule Take 2 capsules by mouth once daily. sucralfate (CARAFATE) 100 mg/mL suspension Take 10 mL by mouth four times daily as needed. As directed (usually before meals and bedtime as needed) COMPOUNDED PRESCRIPTION SHOWER CHAIR WITH BACK DX M06.9 I74.9 COMPOUNDED PRESCRIPTION SUCTION STYLE GRAB BAR FOR SHOWER WALL INSTALLATION DX M 06.9 I 74.9 albuterol HFA (PROAIR HFA) 90 mcg/actuation inhaler Inhale 2 Puffs as instructed every 4 hours as needed for Wheezing/Shortness of Breath. COUMADIN 1 mg tablet take 5mg daily except for Sunday, take 7.5 mg on Sunday or as directedDO NOT SUBSITUTE WITH GENERIC. QUEtiapine (SEROQUEL) 25 mg tablet Take 1 tablet by mouth twice daily. albuterol (PROVENTIL) 2.5 mg /3 mL (0.083 %) nebulizer solution Use 3 mL via nebulizer every 6 hours as needed. Blood Pressure Test Kit-Wrist kit Use to check blood pressure once daily as directed DX:I10 hydroxychloroquine (PLAQUENIL) 200 mg tablet Take 1 tablet by mouth once daily. CALCIUM CARB/MAGNESIUM OX,CARB (YASMINE-MAG ORAL) Take by mouth. nystatin (MYCOSTATIN) cream Apply 1 application to affected area twice daily. As needed escitalopram oxalate (LEXAPRO) 20 mg tablet Take 1 tablet by mouth once daily. COMPOUNDED PRESCRIPTION Morphine 15 mg per pump filled every [address] Wetzel Lactobacillus acidophilus (PROBIOTIC) 10 billion cell cap Take 2 tablets by mouth daily at bedtime. vitamin b complex (B COMPLETE) tab Take 1 tablet by mouth once daily. COMPOUNDED PRESCRIPTION Decrease BiPAP settings to 11/5 cmH2O. Diagnosis G47.33 Miscellaneous Medical Supply [facility] CUSTOM JOBST KNEE HI COMPRESSION STOCKING 30-40MM/HG. Dispense 2 pair Diagnosis:(I87.2) Venous insufficiency of both lower extremities; (R60.9) Edema ketoconazole (NIZORAL) 2 % cream Apply 1 application to affected area once daily. as needed to corners of lips and other rash as directed [place]-3 Fatty Acids-Vitamin E (FISH OIL) 1,000 mg cap Take 1 capsule by mouth three times daily. cholecalciferol (VITAMIN D3) 5,000 unit tab Take 1 tablet by mouth once daily. budesonide-formoterol (SYMBICORT) 160-4.5 mcg/actuation inhaler Inhale 2 Puffs as instructed twice daily. REVIEW OF SYSTEMS: GENERAL: Negative for: Weight loss or gain, Fever or Chills, Weakness and Sleep difficulties. Physical Examination: BP 144/90 Pulse 24 Temp 98.8 Resp 16 Wt 276 lb (125.2kg) BP w/Orthostatic Vitals Date and Time Orthostatic BP Orthostatic Pulse BP Pulse BP Position BP Site BP Cuff Size 10/14/18 1040 -- -- 144/90 -- Sitting Right Arm Regular Adult 10/14/18 1032 -- -- 142/90 (!) 24 Sitting Right Arm Regular Adult Peak Flow Date and Time PF Resp 10/14/18 1032 -- 16 General appearance: Well appearing, alert, in no acute distress, obese, well-hydrated, well nourished. Skin: Skin color, texture, turgor normal, no suspicious rashes + 2 1 diameter partial thickness wounds with red bases, no drainage or surrounding erythema or warmth one on each side of cleft Head: Normocephalic, no masses, lesions, tenderness or abnormalities Eyes: Anicteric sclera. Pupils are equally round and reactive to light. Extraocular movements are intact. Ears: External ears normal, canals clear, TM's normal Nose/Sinuses: Nares normal, septum midline, mucosa normal, no drainage or sinus tenderness Oropharynx: Lips, mucosa, and tongue normal, teeth and gums normal, oropharynx normal Neck: Supple, no adenopathy; thyroid symmetric, normal size, no bruits Lungs: Lungs clear to auscultation. No wheezing, rhonchi, rales Heart: RRR without murmur, gallop, or rubs. Abdomen: Abdomen soft, non-tender. Bowel sounds normal. No masses, organomegaly Extremities: No edema, skin discoloration, clubbing or cyanosis. Good capillary refill. Peripheral pulses: Normal Neuro: Gait normal. Sensation grossly intact. Reviewed chart, outside records, tests I personally interviewed, confirmed and edited the above information if obtained by others. TESTING: Glucose (mg/dL) Date Value 10/07/2018 242 Potassium (mmol/L) Date Value 10/07/2018 3.8 Sodium (mmol/L) Date Value 10/07/2018 139 Chloride (mmol/L) Date Value 10/07/2018 103 CO2 (mmol/L) Date Value 10/07/2018 19 Creatinine (mg/dL) Date Value 10/07/2018 1.23 BUN (mg/dL) Date Value 10/07/2018 18 Anion Gap (mmol/L) Date Value 10/07/2018 17 Calcium (mg/dL) Date Value 10/07/2018 10.1 Glucose (mg/dL) Date Value 10/07/2018 242 Potassium (mmol/L) Date Value 10/07/2018 3.8 Sodium (mmol/L) Date Value 10/07/2018 139 Chloride (mmol/L) Date Value 10/07/2018 103 CO2 (mmol/L) Date Value 10/07/2018 19 Creatinine (mg/dL) Date Value 10/07/2018 1.23 BUN (mg/dL) Date Value 10/07/2018 18 Anion Gap (mmol/L) Date Value 10/07/2018 17 Calcium (mg/dL) Date Value 10/07/2018 10.1 Protein, Total (g/dL) Date Value 04/12/2018 7.0 Albumin (g/dL) Date Value 04/12/2018 4.2 Bilirubin, Total (mg/dL) Date Value 04/12/2018 0.3 Alkaline Phosphatase (U/L) Date Value 04/12/2018 92 AST (U/L) Date Value 04/12/2018 43 ALT (U/L) Date Value 04/12/2018 49 Hemoglobin (g/dL) Date Value 11/13/2017 14.4 Hematocrit (%) Date Value 11/13/2017 42.9 WBC (k/uL) Date Value 11/13/2017 5.35 Cholesterol, Total (mg/dL) Date Value 04/12/2018 284 HDL Cholesterol (mg/dL) Date Value 04/12/2018 52 LDL Cholesterol (mg/dL) Date Value 04/12/2018 163 Triglyceride (mg/dL) Date Value 04/12/2018 343 Hemoglobin A1C Date Value Ref Range Status 08/09/2018 5.8 (H) 4.3 - 5.6 % Final 04/12/2018 8.4 (H) 4.3 - 5.6 % Final 11/13/2017 8.4 (H) 4.3 - 5.6 % Final 07/28/2017 7.1 (H) 4.3 - 5.6 % Final Comment: [place] [employer] guidelines indicate that patients with HgbA1c in the range 5.7-6.4% are at increased risk for development of diabetes, and intervention by lifestyle modification may be beneficial. HgbA1c greater or equal to 6.5% is considered diagnostic of diabetes. 03/12/2017 9.6 (H) 4.3 - 5.6 % Final Comment: [place] [employer] guidelines indicate that patients with HgbA1c in the range 5.7-6.4% are at increased risk for development of diabetes, and intervention by lifestyle modification may be beneficial. HgbA1c greater or equal to 6.5% is considered diagnostic of diabetes. Ejection Fraction: No results found IMPRESSION: Ms. Meyers is a 53 year old woman presents for follow up of hypertension. After my examination and review of data, I make the following recommendations. PLAN AND RECOMMENDATIONS: 1. Need for vaccination - ICD9: V05.9, ICD10: Z23 (primary diagnosis) - INFLUENZA VACCINE QUADRIVALENT AGE 3 YRS PLUS + IM 2. Essential hypertension - ICD9: 401.9, ICD10: I10 - suboptimal control - Continue current medication(s) - Encouraged dietary sodium restriction/DASH diet - Recommended regular aerobic exercise. - Recommend home blood pressure monitoring, to bring results in on next visit - Goal of BP <130/80 - LISINOPRIL 10 MG TABLET - CONSULT TO NUTRITION THERAPY 3. Type 2 DM with CKD stage 3 and hypertension (HCC) - ICD9: 250.40, 403.90, 585.3, ICD10: E11.22, I12.9, N18.3 Current poor control. - INSULIN GLARGINE (U-100) 100 UNIT/ML (3 ML) SUBCUTANEOUS PEN - CONSULT TO NUTRITION THERAPY 4. Morbid obesity with body mass index (BMI) of 50.0 to 59.9 in adult (HCC) - ICD9: 278.01, V85.43, ICD10: E66.01, Z68.43 Weight loss would be of benefit, defers transformation coach today 5. History of deep vein thrombosis - ICD9: V12.51, ICD10: Z86.718 Forms completed for home INR Advise: Increase lantus insulin from 10 units per day to 12 units per day Continue with lisinopril 10 mg Return to clinic 1-4 weeks for recheck of blood pressure having taken lisinopril at least one hour before visit Check labs on medication advised.. May try home INR, however has had difficulty adhering to coumadin clinic. Advised to go to ER if develops chest pain, shortness of breath, or severe worsening of symptoms. Discussed risks, benefits, alternatives, and potential side effects of medications. Ms. Meyers expressed understanding and agreed with the plan. Trish Ramírez APRN.HISTOLOGY TEACHER PROGRESS Observed: 10/14/2018 Status: COMPLETED Source: [place] 10:38 AM [facility] REPOSIT[facility] HNO ID: [id number] Author: Portia Bennett LPN Service: (none) Author Type: (none) Type: Progress Notes Filed: 10/14/2018 1:56 PM Note Text: 53 year old female here for INACTIVATED INFLUENZA VACCINE. [id number] Season Patient is identified by name and date of : Yes [] CONTRAINDICATIONS color enhanced section Age less than 6 months? No Allergy to eggs, chicken, chicken feathers, or chicken dander? No Allergy to thimerosal (a preservative) or formaldehyde, gelatin? No History of severe reaction to any vaccine component or a previous dose of influenza vaccination? No History of Guillain-Sherwood Syndrome within 6 weeks after a previous influenza vaccine? No Patient is not moderately or severely ill? No Current temperature greater or equal to 100.4F? No History of Bone Marrow Transplant prior 6 months or solid organ transplant in the past 3 months ? No History of fainting after a prior injection or medical procedure? No- ? If patient has fainted in the past, the CDC recommends sitting or lying down for 15 minutes after the vaccination. [] VERIFICATION color enhanced section Was the answer Yes for any of the above contraindications? No contraindications present. Acceptable to proceed with vaccine. Patient/guardian agrees the above answers are true to the best of their knowledge? Yes Flu vaccine information sheet given? Yes See immunization activity in [facility] for details of immunizations adminstered today. Patient age: [age] year old For The [id number] Flu Season 6-35 months old: Fluzone 0.25 ml - IM (Preservative Free) 3 years of age: Fluzone 0.5 ml - IM (Preservative Free) 3 years and older: Fluzone 0.5 ml- IM-(with Preservatives) 65+ years old: 2-49 years old Fluzone High-Dose 0.5 ml - IM (Preservative Free) FLUMIST- intranasal REMEMBER: If patient is less than 9 years of age and this is the first vaccine of Influenza to be received in any flu season, they should receive a second dose in one months time. CNOV Observed: 10/14/2018 Status: COMPLETED Source: [place] 10:20 AM [facility] REPOSITORY Office Visit (INTMWS) DEBORA MEYERS ([id number]) 1965 F Date Time Provider Department 10/14/18 10:20 AM TRISH RAMÍREZ (HISTOLOGY TEACHER) INTMWS During your visit today, we recorded the following information about you: Temperature Pulse Respiration Blood pressure 98.8 degrees 24/minute 16/minute 144/90 Weight 125.2 kg Portia Bennett LPN 10/14/2018 1:56 PM Signed 53 year old female here for INACTIVATED INFLUENZA VACCINE. [id number] Season Patient is identified by name and date of : Yes [] CONTRAINDICATIONS color enhanced section Age less than 6 months? No Allergy to eggs, chicken, chicken feathers, or chicken dander? No Allergy to thimerosal (a preservative) or formaldehyde, gelatin? No History of severe reaction to any vaccine component or a previous dose of influenza vaccination? No History of Guillain-Sherwood Syndrome within 6 weeks after a previous influenza vaccine? No Patient is not moderately or severely ill? No Current temperature greater or equal to 100.4F? No History of Bone Marrow Transplant prior 6 months or solid organ transplant in the past 3 months ? No History of fainting after a prior injection or medical procedure? No- ? If patient has fainted in the past, the CDC recommends sitting or lying down for 15 minutes after the vaccination. [] VERIFICATION color enhanced section Was the answer Yes for any of the above contraindications? No contraindications present. Acceptable to proceed with vaccine. Patient/guardian agrees the above answers are true to the best of their knowledge? Yes Flu vaccine information sheet given? Yes See immunization activity in [facility] for details of immunizations adminstered today. Patient age: [age] year old For The [id number] Flu Season 6-35 months old: Fluzone 0.25 ml - IM (Preservative Free) 3 years of age: Fluzone 0.5 ml - IM (Preservative Free) 3 years and older: Fluzone 0.5 ml- IM-(with Preservatives) 65+ years old: 2-49 years old Fluzone High-Dose 0.5 ml - IM (Preservative Free) FLUMIST- intranasal REMEMBER: If patient is less than 9 years of age and this is the first vaccine of Influenza to be received in any flu season, they should receive a second dose in one months time. Trish RamírezGRAHAM.HISTOLOGY TEACHER 10/14/2018 1:56 PM Signed OUTPATIENT VISIT DATE October 14, 2018 OUTPATIENT VISIT TYPE ESTABLISHED PRIMARY CARE PHYSICIAN: Livia Scott MD CHIEF COMPLAINT: Patient presents with: Hypertension Blood Sugar Elevation Cough Imm/Inj: Flu Vaccine History of Present Illness: Debora Meyers is a 53 year old female who was last seen 09/06/2017 She has been seen in the past for ACTIVE PROBLEM LIST Other Diseases of Lung, Not Elsewhere Classified Asthma Unspecified Sleep Apnea Fibromyalgia Goiter, Unspecified Reflux Esophagitis Nausea Alone Acute Gastritis Without Mention of Hemorrhage Unspecified Constipation Mixed Hyperlipidemia Hypopotassemia Disorder of Hypothalamus (Hcc) Obstructive Sleep Apnea Hypothyroidism Hx of Hysterectomy Allergic Rhinitis Benign Neoplasm of Stomach Morbid Obesity Due to Excess Calories (Hcc) Essential Hypertension Nephrolithiasis Vitamin D Deficiency Rheumatoid Arthritis (Hcc) Bipolar Disorder, Unspecified (Hcc) Personal History of Pulmonary Embolism Irritable Bowel Syndrome Neuropathy ([facility]) Incisional Hernia Polycythemia, Secondary Anticoagulated On Coumadin Stacy Treated With Bipap Type 2 Dm With Ckd Stage 3 and Hypertension (Hcc) Polypharmacy Noncompliance With Treatment Nonallergic Rhinitis History of Deep Vein Thrombosis Hypoxemia Acute Kidney Injury Superimposed On Chronic Kidney Disease (Hcc) Metabolic Encephalopathy Hyperkalemia Abdominal Pannus Anxiety At her last visit was resumed on blood pressure medications. She reports consistently taking blood pressure medication. Takes typically in the middle of day. No adverse effects of medications noted. Without report of chest pain shortness breath dizziness lightheadedness palpitations Since the last visit, she states that she continues to be under stress going through divorce. She brings in forms from [facility] [place] when he did complete INR at home. Livia Scott MD to sign off. Reports using BiPAP, oxygen increased to 3 L due to hypoxia noted on recent diagnostics per [facility] [place] Reports poorly controlled diabetes currently. Reports fasting blood sugars typically 250-275. She reports checking blood sugar before dinner and getting about the same results. Does not bring her meter to her visit today. She reports taking mealtime insulin 10 units for each meal and 10 units of Lantus once daily. She reports sores on her bottom which have been present for a while, has not yet healed PAST MEDICAL HISTORY Diagnosis Date - Allergic rhinitis used to receive allergy shots from Dr. Brown - Alopecia, unspecified 08/29/2012 - Anticoagulated on Coumadin INR goal 3.0 to 4.0 - Anxiety - Asthma - Benign neoplasm of stomach - Bipolar disorder, unspecified 08/29/2012 - Diabetes mellitus type 2, controlled, without complications (HCC) 08/12/2007 In records from treatment after elevated sugars in 2001 during hospital stay; no longer on any meds and sugars have been fine--either normal or just in impaired fasting glucose level - Embolism and thrombosis (HCC) 08/14/2005 - Environmental allergies 01/17/2012 - Exostosis of unspecified site 09/27/2010 - Fibromyalgia - Goiter, unspecified - Hypothyroidism 10/28/2009 - Nausea alone - Obesity - STACY treated with BiPAP [facility] supplier - Other diseases of lung, not elsewhere classified - Other hammer toe (acquired) 09/27/2010 - RA (rheumatoid arthritis) (HCC) - 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 also elevated BMI . RECOMMENDATIONS are 1.weight loss.2. not seen significant sleep apnea however absense or REM sleep sleep apnea may be understimated.Extrinsic factors leading to excessive daytime somnolence such as mood disturbances and or medication effect may be a factor PAST SURGICAL HISTORY Procedure Laterality Date - COLONOSCOP W/ OR W/O [facility] SPEC 03-06-13 Colonoscopy - EGD W/O OR W/BRUSH/WASH 02/25/2007 EGD - EGD W/O OR W/BRUSH/WASH 11/03/2011 EGD - PAST SURGICAL HISTORY OF [place] except cervix was left in; complicated with wound infection; [facility] - PAST SURGICAL HISTORY OF fundoplication May 1991 - PAST SURGICAL HISTORY OF right foot surgery on achilles tendon - PAST SURGICAL HISTORY OF 09/16/13 bone spur removed from right foot - PAST SURGICAL HISTORY OF 08/2014 Intrathecal pump implant for chronic back pain ([facility]) - PULMONARY FUNCTION TEST 05/04/05 - REMOVAL ADENOIDS,PRIMARY,<12 Y/O Adenoidectomy - REMOVAL GALLBLADDER 1990 Cholecystectomy - REMOVAL OF TONSILS,<12 Y/O Tonsillectomy - TOTAL ABDOM HYSTERECTOMY 2008 polycystic ovaries - UVULECTOMY EXCISION OF UVULA 2004 FAMILY HISTORY Problem Relation Age of Onset - Adopted: Yes - None Mother - Alcohol/Drug Father - None Sister BOWEL PROBLEMS Social History Substance Use Topics - Smoking status: Never Smoker - Smokeless tobacco: Never Used Comment: Parents briefly smoked in childhood home. - Alcohol use No ALLERGIES: ALLERGIES Allergen Reactions - Environmental [Othe* Rash, Cough - Vitamin K Swelling - Cholestyramine Other: See Comments constipation - Ibuprofen Diarrhea - Macrobid [Nitrofura* Rash states that broke out all over with rash last time was given this in September 2010 - Peroxide [Other] Intolerance - Sulfa (Sulfonamide * Rash - Tylenol [Acetaminop* Vomiting Nausea MEDICATIONS lisinopril (PRINIVIL) 10 mg tablet Take 1 tablet by mouth once daily. Hydrochlorothiazide 12.5 mg capsule Take 1 capsule by mouth once daily. topiramate (TOPAMAX) 100 mg tablet Take 100 mg by mouth twice daily. tiZANidine (ZANAFLEX) 2 mg tablet Take 1 tablet by mouth every 8 hours as needed (muscle spasms, neck pain and headache). May make drowsy insulin glargine (LANTUS SOLOSTAR U-100 INSULIN) 100 unit/mL (3 mL) inpn Inject 10 Units subcutaneously twice daily. rOPINIRole (REQUIP) 1 mg tablet Take 1 tablet by mouth four times daily. As directed Omeprazole 40 mg capsule Take 1 capsule by mouth once daily. clonazePAM (KLONOPIN) 1 mg tablet Take 0.5-1 tablets by mouth daily at bedtime for 90 days. enoxaparin (LOVENOX) 40 mg/0.4 mL syrg 40 mg subcutaneous every 12 hours starting August 12 in the morning; take only the morning dose August 14; do not take August 15 (day of procedure); resume 40 mg every 12 hours starting evening of August 16 ; continue until INR therapeutic Alpha Lipoic Acid 600 mg cap Take 1 capsule by mouth twice daily. insulin needles, DISPOSABLE, (BD INSULIN PEN NEEDLE UF) 31 gauge x 5/16 ndle Use with insulin pens 5 times daily, or as directed, Dx: E11.22 topiramate (TOPAMAX) 50 mg tablet Take 1 tablet by mouth three times daily. for headache melatonin 1 mg tablet Take 1 tablet by mouth daily at bedtime. insulin lispro (HUMALOG KWIKPEN INSULIN) 100 unit/mL inpn Inject 10 Units subcutaneously w MEALS. Three times daily loratadine (CLARITIN) 10 mg tablet Take 1 tablet by mouth once daily. verapamil (CALAN, ISOPTIN) 40 mg tablet Take 1 tablet by mouth three times daily. atorvastatin (LIPITOR) 10 mg tablet Take 1 tablet by mouth daily at bedtime. For cholesterol. dicyclomine (BENTYL) 10 mg capsule Take 1 capsule by mouth four times daily as needed (cramping pains and urgency with bowels). ondansetron (ZOFRAN) 4 mg tablet Take 1 tablet by mouth every 8 hours as needed for Nausea/Vomiting. levothyroxine (LEVOXYL) 100 mcg tablet Take 1 tablet by mouth daily before breakfast. blood sugar diagnostic (TRUE METRIX GLUCOSE TEST STRIP) test strip Test blood sugar 4 x daily. Dx: E11.22. Insulin use: Yes adalimumab (HUMIRA) 40 mg/0.8 mL injection Inject 40 mg subcutaneously one time only. nystatin (MYCOSTATIN) 100,000 unit/mL suspension 1 tsp swish and swallow until gone, 4 times daily fluticasone (FLONASE) 50 mcg/actuation nasal spray Use 1-2 Sprays in each nostril once daily. Cetirizine (ZYRTEC) 10 mg cap Take by mouth daily at bedtime. fluticasone-vilanterol (BREO ELLIPTA) 200-25 mcg/dose inhaler Inhale 1 Inhalation as instructed once daily. albuterol HFA (PROVENTIL HFA, VENTOLIN HFA) 90 mcg/actuation inhaler Inhale 2 Puffs as instructed every 4 hours as needed (for cough, wheezing, chest tightness or shortness of breath. Use with spacer. ). Benzonatate 200 mg capsule Take 1 capsule by mouth three times daily as needed. triamcinolone acetonide (KENALOG) 0.1 % cream Apply 1 application to affected area three times daily as needed (itchy rash/psoriasis on hands). Apply sparingly insulin needles, DISPOSABLE, (UNIFINE PENTIPS) 31 gauge x 5/16 ndle Inject 1 Each subcutaneously four times daily. warfarin (COUMADIN) 7.5 mg tablet Take 1 tablet by mouth daily as directed. warfarin (COUMADIN) 5 mg tablet Take 1 tablet by mouth once daily. SHENG - 7.5mg , sun and 5mg all other days or as directed multivitamin with minerals (HAIR,SKIN AND NAILS) tablet Take 1 tablet by mouth three times daily. alpha tocopheryl acetate (VITAMIN E) 400 unit capsule Take 2 capsules by mouth once daily. sucralfate (CARAFATE) 100 mg/mL suspension Take 10 mL by mouth four times daily as needed. As directed (usually before meals and bedtime as needed) COMPOUNDED PRESCRIPTION SHOWER CHAIR WITH BACK DX M06.9 I74.9 COMPOUNDED PRESCRIPTION SUCTION STYLE GRAB BAR FOR SHOWER WALL INSTALLATION DX M 06.9 I 74.9 albuterol HFA (PROAIR HFA) 90 mcg/actuation inhaler Inhale 2 Puffs as instructed every 4 hours as needed for Wheezing/Shortness of Breath. COUMADIN 1 mg tablet take 5mg daily except for Sunday, take 7.5 mg on Sunday or as directedDO NOT SUBSITUTE WITH GENERIC. QUEtiapine (SEROQUEL) 25 mg tablet Take 1 tablet by mouth twice daily. albuterol (PROVENTIL) 2.5 mg /3 mL (0.083 %) nebulizer solution Use 3 mL via nebulizer every 6 hours as needed. Blood Pressure Test Kit-Wrist kit Use to check blood pressure once daily as directed DX:I10 hydroxychloroquine (PLAQUENIL) 200 mg tablet Take 1 tablet by mouth once daily. CALCIUM CARB/MAGNESIUM OX,CARB (YASMINE-MAG ORAL) Take by mouth. nystatin (MYCOSTATIN) cream Apply 1 application to affected area twice daily. As needed escitalopram oxalate (LEXAPRO) 20 mg tablet Take 1 tablet by mouth once daily. COMPOUNDED PRESCRIPTION Morphine 15 mg per pump filled every [address] Wetzel Lactobacillus acidophilus (PROBIOTIC) 10 billion cell cap Take 2 tablets by mouth daily at bedtime. vitamin b complex (B COMPLETE) tab Take 1 tablet by mouth once daily. COMPOUNDED PRESCRIPTION Decrease BiPAP settings to 11/5 cmH2O. Diagnosis G47.33 Miscellaneous Medical Supply [facility] CUSTOM JOBST KNEE HI COMPRESSION STOCKING 30-40MM/HG. Dispense 2 pair Diagnosis:(I87.2) Venous insufficiency of both lower extremities; (R60.9) Edema ketoconazole (NIZORAL) 2 % cream Apply 1 application to affected area once daily. as needed to corners of lips and other rash as directed [place]-3 Fatty Acids-Vitamin E (FISH OIL) 1,000 mg cap Take 1 capsule by mouth three times daily. cholecalciferol (VITAMIN D3) 5,000 unit tab Take 1 tablet by mouth once daily. budesonide-formoterol (SYMBICORT) 160-4.5 mcg/actuation inhaler Inhale 2 Puffs as instructed twice daily. REVIEW OF SYSTEMS: GENERAL: Negative for: Weight loss or gain, Fever or Chills, Weakness and Sleep difficulties. Physical Examination: BP 144/90 Pulse 24 Temp 98.8 Resp 16 Wt 276 lb (125.2kg) BP w/Orthostatic Vitals Date and Time Orthostatic BP Orthostatic Pulse BP Pulse BP Position BP Site BP Cuff Size 10/14/18 1040 -- -- 144/90 -- Sitting Right Arm Regular Adult 10/14/18 1032 -- -- 142/90 (!) 24 Sitting Right Arm Regular Adult Peak Flow Date and Time PF Resp 10/14/18 1032 -- 16 General appearance: Well appearing, alert, in no acute distress, obese, well-hydrated, well nourished. Skin: Skin color, texture, turgor normal, no suspicious rashes + 2 1 diameter partial thickness wounds with red bases, no drainage or surrounding erythema or warmth one on each side of april cleft Head: Normocephalic, no masses, lesions, tenderness or abnormalities Eyes: Anicteric sclera. Pupils are equally round and reactive to light. Extraocular movements are intact. Ears: External ears normal, canals clear, TM's normal Nose/Sinuses: Nares normal, septum midline, mucosa normal, no drainage or sinus tenderness Oropharynx: Lips, mucosa, and tongue normal, teeth and gums normal, oropharynx normal Neck: Supple, no adenopathy; thyroid symmetric, normal size, no bruits Lungs: Lungs clear to auscultation. No wheezing, rhonchi, rales Heart: RRR without murmur, gallop, or rubs. Abdomen: Abdomen soft, non-tender. Bowel sounds normal. No masses, organomegaly Extremities: No edema, skin discoloration, clubbing or cyanosis. Good capillary refill. Peripheral pulses: Normal Neuro: Gait normal. Sensation grossly intact. Reviewed chart, outside records, tests I personally interviewed, confirmed and edited the above information if obtained by others. TESTING: Glucose (mg/dL) Date Value 10/07/2018 242 Potassium (mmol/L) Date Value 10/07/2018 3.8 Sodium (mmol/L) Date Value 10/07/2018 139 Chloride (mmol/L) Date Value 10/07/2018 103 CO2 (mmol/L) Date Value 10/07/2018 19 Creatinine (mg/dL) Date Value 10/07/2018 1.23 BUN (mg/dL) Date Value 10/07/2018 18 Anion Gap (mmol/L) Date Value 10/07/2018 17 Calcium (mg/dL) Date Value 10/07/2018 10.1 Glucose (mg/dL) Date Value 10/07/2018 242 Potassium (mmol/L) Date Value 10/07/2018 3.8 Sodium (mmol/L) Date Value 10/07/2018 139 Chloride (mmol/L) Date Value 10/07/2018 103 CO2 (mmol/L) Date Value 10/07/2018 19 Creatinine (mg/dL) Date Value 10/07/2018 1.23 BUN (mg/dL) Date Value 10/07/2018 18 Anion Gap (mmol/L) Date Value 10/07/2018 17 Calcium (mg/dL) Date Value 10/07/2018 10.1 Protein, Total (g/dL) Date Value 04/12/2018 7.0 Albumin (g/dL) Date Value 04/12/2018 4.2 Bilirubin, Total (mg/dL) Date Value 04/12/2018 0.3 Alkaline Phosphatase (U/L) Date Value 04/12/2018 92 AST (U/L) Date Value 04/12/2018 43 ALT (U/L) Date Value 04/12/2018 49 Hemoglobin (g/dL) Date Value 11/13/2017 14.4 Hematocrit (%) Date Value 11/13/2017 42.9 WBC (k/uL) Date Value 11/13/2017 5.35 Cholesterol, Total (mg/dL) Date Value 04/12/2018 284 HDL Cholesterol (mg/dL) Date Value 04/12/2018 52 LDL Cholesterol (mg/dL) Date Value 04/12/2018 163 Triglyceride (mg/dL) Date Value 04/12/2018 343 Hemoglobin A1C Date Value Ref Range Status 08/09/2018 5.8 (H) 4.3 - 5.6 % Final 04/12/2018 8.4 (H) 4.3 - 5.6 % Final 11/13/2017 8.4 (H) 4.3 - 5.6 % Final 07/28/2017 7.1 (H) 4.3 - 5.6 % Final Comment: [place] [employer] guidelines indicate that patients with HgbA1c in the range 5.7-6.4% are at increased risk for development of diabetes, and intervention by lifestyle modification may be beneficial. HgbA1c greater or equal to 6.5% is considered diagnostic of diabetes. 03/12/2017 9.6 (H) 4.3 - 5.6 % Final Comment: [place] [employer] guidelines indicate that patients with HgbA1c in the range 5.7-6.4% are at increased risk for development of diabetes, and intervention by lifestyle modification may be beneficial. HgbA1c greater or equal to 6.5% is considered diagnostic of diabetes. Ejection Fraction: No results found IMPRESSION: Ms. Meyers is a 53 year old woman presents for follow up of hypertension. After my examination and review of data, I make the following recommendations. PLAN AND RECOMMENDATIONS: 1. Need for vaccination - ICD9: V05.9, ICD10: Z23 (primary diagnosis) - INFLUENZA VACCINE QUADRIVALENT AGE 3 YRS PLUS + IM 2. Essential hypertension - ICD9: 401.9, ICD10: I10 - suboptimal control - Continue current medication(s) - Encouraged dietary sodium restriction/DASH diet - Recommended regular aerobic exercise. - Recommend home blood pressure monitoring, to bring results in on next visit - Goal of BP <130/80 - LISINOPRIL 10 MG TABLET - CONSULT TO NUTRITION THERAPY 3. Type 2 DM with CKD stage 3 and hypertension (HCC) - ICD9: 250.40, 403.90, 585.3, ICD10: E11.22, I12.9, N18.3 Current poor control. - INSULIN GLARGINE (U-100) 100 UNIT/ML (3 ML) SUBCUTANEOUS PEN - CONSULT TO NUTRITION THERAPY 4. Morbid obesity with body mass index (BMI) of 50.0 to 59.9 in adult (HCC) - ICD9: 278.01, V85.43, ICD10: E66.01, Z68.43 Weight loss would be of benefit, defers transformation coach today 5. History of deep vein thrombosis - ICD9: V12.51, ICD10: Z86.718 Forms completed for home INR Advise: Increase lantus insulin from 10 units per day to 12 units per day Continue with lisinopril 10 mg Return to clinic 1-4 weeks for recheck of blood pressure having taken lisinopril at least one hour before visit Check labs on medication advised.. May try home INR, however has had difficulty adhering to coumadin clinic. Advised to go to ER if develops chest pain, shortness of breath, or severe worsening of symptoms. Discussed risks, benefits, alternatives, and potential side effects of medications. Ms. Luigi expressed understanding and agreed with the plan. Trish Ramírez APRN.KHALIF Ramírez APRN.CNS 10/14/2018 1:56 PM Signed . Trish Ramírez APRN.CNS 10/14/2018 11:33 AM Signed Increase lantus insulin from 12 units per day to 12 units per day Continue with lisinopril 10 mg Return to clinic 1-4 weeks for recheck of blood pressure having taken lisinopril at least one hour before visit Referring Provider: SELF [200] Allergies As of Date: 10/14/2018 Noted Allergy Reaction environmental [Other] 07/14/2005 2 - Rash 3 - Cough VITAMIN K 07/14/2005 7 - Swelling CHOLESTYRAMINE 03/31/2013 14 - Other: See Comments Comments: constipation IBUPROFEN 06/29/2009 6 - Diarrhea MACROBID (NITROFURANTOIN MONOHYD/*12/06/2010 2 - Rash Comments: states that broke out all over with rash last time was given this in September 2010 peroxide [Other] 07/14/2005 5 - Intolerance SULFA (SULFONAMIDE ANTIBIOTICS) 02/05/2013 2 - Rash TYLENOL (ACETAMINOPHEN) 03/17/2014 11 - Vomiting Comments: Nausea Date Reviewed: 10/14/2018 Reviewed by: Portia Bennett LPN - Fully Assessed Reason for Visit: Hypertension [168] Blood Sugar Elevation [1423] Cough [28] Imm/Inj [58] Cmt: Flu Vaccine Reason For Visit History Recorded Primary Visit Diagnosis:Need for vaccination [Z23] Other Visit Diagnoses:Essential hypertension [I10] Type 2 DM with CKD stage 3 and hypertension (HCC) [E11.22, I12.9, N18.3] Morbid obesity with body mass index (BMI) of 50.0 to 59.9 in adult (HCC) [E66.01, Z68.43] History of deep vein thrombosis [Z86.718] Order(s):INFLUENZA VACCINE QUADRIVALENT AGE 3 YRS PLUS + IM [17429EUP] Order #: [id number] lisinopril (PRINIVIL) 10 mg tabletTake 1 tablet by mouth once daily.Disp: 30 tabletRfl: 11 insulin glargine (LANTUS SOLOSTAR U-100 INSULIN) 100 unit/mL (3 mL) inpnInject 12 Units subcutaneously twice daily.Disp: 5 PenRfl: 5 Chlorhexidine Gluconate (PERIDEX) 0.12 % solutionTake 15 mL by mouth twice daily. as needed for tooth / mouth painDisp: 118 mLRfl: 1 CONSULT TO NUTRITION THERAPY [7272] Order #: [id number]: 1 Prescriptions as of 10/14/2018 Sig: LISINOPRIL 10 MG TABLET Take 1 tablet by mouth once d* INSULIN GLARGINE (U-100) 100 * Inject 12 Units subcutaneousl* HYDROCHLOROTHIAZIDE 12.5 MG C* Take 1 capsule by mouth once * TOPIRAMATE 100 MG TABLET Take 100 mg by mouth twice da* TIZANIDINE 2 MG TABLET Take 1 tablet by mouth every * ROPINIROLE 1 MG TABLET Take 1 tablet by mouth four t* OMEPRAZOLE 40 MG CAPSULE,LALITO* Take 1 capsule by mouth once * CLONAZEPAM 1 MG TABLET Take 0.5-1 tablets by mouth d* ENOXAPARIN 40 MG/0.4 ML SUBCU* 40 mg subcutaneous every 12 h* ALPHA LIPOIC ACID 600 MG CAPS* Take 1 capsule by mouth twice* PEN NEEDLE, DIABETIC 31 GAUGE* Use with insulin pens 5 times* TOPIRAMATE 50 MG TABLET Take 1 tablet by mouth three * MELATONIN 1 MG TABLET Take 1 tablet by mouth daily * INSULIN LISPRO (U-100) 100 UN* Inject 10 Units subcutaneousl* LORATADINE 10 MG TABLET Take 1 tablet by mouth once d* VERAPAMIL 40 MG TABLET Take 1 tablet by mouth three * ATORVASTATIN 10 MG TABLET Take 1 tablet by mouth daily * DICYCLOMINE 10 MG CAPSULE Take 1 capsule by mouth four * ONDANSETRON HCL 4 MG TABLET Take 1 tablet by mouth every * LEVOTHYROXINE 100 MCG TABLET Take 1 tablet by mouth daily * BLOOD SUGAR DIAGNOSTIC STRIPS Test blood sugar 4 x daily. D* ADALIMUMAB 40 MG/0.8 ML SUBCU* Inject 40 mg subcutaneously o* NYSTATIN 100,000 UNIT/ML ORAL* 1 tsp swish and swallow until* FLUTICASONE 50 MCG/ACTUATION * Use 1-2 Sprays in each nostri* CETIRIZINE 10 MG CAPSULE Take by mouth daily at bedtim* FLUTICASONE 200 MCG-VILANTERO* Inhale 1 Inhalation as instru* ALBUTEROL SULFATE HFA 90 MCG/* Inhale 2 Puffs as instructed * BENZONATATE 200 MG CAPSULE Take 1 capsule by mouth three* TRIAMCINOLONE ACETONIDE 0.1 %* Apply 1 application to affect* PEN NEEDLE, DIABETIC 31 GAUGE* Inject 1 Each subcutaneously * WARFARIN 7.5 MG TABLET Take 1 tablet by mouth daily * WARFARIN 5 MG TABLET Take 1 tablet by mouth once d* MULTIVITAMIN WITH MINERALS TA* Take 1 tablet by mouth three * VITAMIN E 400 UNIT CAPSULE Take 2 capsules by mouth once* SUCRALFATE 100 MG/ML ORAL BART* Take 10 mL by mouth four time* COMPOUNDED PRESCRIPTION SHOWER CHAIR WITH BACK D* COMPOUNDED PRESCRIPTION SUCTION STYLE GRAB BAR FOR SH* ALBUTEROL SULFATE HFA 90 MCG/* Inhale 2 Puffs as instructed * COUMADIN 1 MG TABLET take 5mg daily except for Sun* QUETIAPINE 25 MG TABLET Take 1 tablet by mouth twice * ALBUTEROL SULFATE 2.5 MG/3 ML* Use 3 mL via nebulizer every * BLOOD PRESSURE TEST KIT-WRIST* Use to check blood pressure o* HYDROXYCHLOROQUINE 200 MG TAB* Take 1 tablet by mouth once d* YASMINE-MAG ORAL Take by mouth. NYSTATIN 100,000 UNIT/GRAM TO* Apply 1 application to affect* ESCITALOPRAM 20 MG TABLET Take 1 tablet by mouth once d* COMPOUNDED PRESCRIPTION Morphine 15 mg per pump fille* LACTOBACILLUS ACIDOPHILUS 10 * Take 2 tablets by mouth daily* VITAMIN B COMPLEX TABLET Take 1 tablet by mouth once d* COMPOUNDED PRESCRIPTION Decrease BiPAP settings to 11* MISCELLANEOUS MEDICAL SUPPLY * CUSTOM JOBST KNEE HI KIRSTY* KETOCONAZOLE 2 % TOPICAL CREAM Apply 1 application to affect* OMEGA-3 FATTY ACIDS-VITAMIN E* Take 1 capsule by mouth three* CHLORHEXIDINE GLUCONATE 0.12 * Take 15 mL by mouth twice trista* CHOLECALCIFEROL (VITAMIN D3) * Take 1 tablet by mouth once d* BUDESONIDE-FORMOTEROL HFA 160* Inhale 2 Puffs as instructed * Problem List As Of Date 10/14/2018 Noted Resolved OTHER LUNG DISEASE NEC [J98.4] Asthma [J45.909] OTHER UNSPEC SLEEP APNEA [G47.30] Dysmetabolic syndrome X [E88.81] 09/11/2011 Fibromyalgia [M79.7] Embolism and thrombosis (HCC) [I74.9] INVALID FOR*05/05/2018 GOITER NOS [E04.9] REFLUX ESOPHAGITIS [K21.0] NAUSEA ALONE [R11.0] ACUTE GASTRITIS W/O HEMORRHAGE [K29.00] INVALID FOR* CONSTIPATION NOS [K59.00] INVALID FOR* More... 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 Obstructive Sleep Apnea [G47.33] INVALID FOR* More... Hypothyroidism [E03.9] INVALID FOR* Exostosis of unspecified site [M89.8X9] INVALID FOR*11/27/2017 Other hammer toe (acquired) [M20.40] INVALID FOR*11/27/2017 Hx of hysterectomy [Z90.710] INVALID FOR* More... Allergic rhinitis [J30.9] More... 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] INVALID FOR* Environmental allergies [Z91.09] INVALID FOR*11/27/2017 Morbid obesity due to excess calories (HCC) [E6* Chronic kidney disease, stage III (moderate) [N*INVALID FOR*11/27/2017 Essential hypertension [I10] INVALID FOR* Nephrolithiasis [N20.0] INVALID FOR* Vitamin D deficiency [E55.9] INVALID FOR* Rheumatoid arthritis (HCC) [M06.9] INVALID FOR* Bipolar disorder, unspecified [F31.9] INVALID FOR* Alopecia, unspecified [L65.9] INVALID FOR*11/27/2017 Personal history of pulmonary embolism [Z86.711]INVALID FOR* Irritable bowel syndrome [K58.9] INVALID FOR* Neuropathy [G62.9] INVALID FOR* Incisional hernia [K43.2] INVALID FOR* Polycythemia, secondary [D75.1] INVALID FOR* Anticoagulated on Coumadin [Z51.81, Z79.01] INVALID FOR* STACY treated with BiPAP [G47.33] More... Type 2 DM with CKD stage 3 and hypertension (HC*INVALID FOR* Polypharmacy [Z79.899] INVALID FOR* Noncompliance with treatment [Z91.19] INVALID FOR* CKD (chronic kidney disease) stage 4, GFR 15-29*INVALID FOR*08/26/2017 Nonallergic rhinitis [J31.0] INVALID FOR* History of deep vein thrombosis [Z86.718] INVALID FOR* Hypoxemia [R09.02] INVALID FOR* More... Acute kidney injury superimposed on chronic kid*INVALID FOR* Metabolic encephalopathy [G93.41] INVALID FOR* Hyperkalemia [E87.5] INVALID FOR* Abdominal pannus [E65] INVALID FOR* Anxiety [F41.9] Other instructions from your clinician: Increase lantus insulin from 12 units per day to 12 units per day Continue with lisinopril 10 mg Return to clinic 1-4 weeks for recheck of blood pressure having taken lisinopril at least one hour before visit Prescriptions ordered this encounter Disp Refills Start End LISINOPRIL 10 MG TABLET 30 t* 11 10/14/2018 Route: ORAL Sig: Take 1 tablet by mouth once daily. INSULIN GLARGINE (U-100) 100 UNIT/ML* 5 Pen 5 10/14/2018 Class: Med Update Route: SUBCUTANEOUS Sig: Inject 12 Units subcutaneously twice daily. CHLORHEXIDINE GLUCONATE 0.12 % MOUTH* 118 * 1 10/14/2018 Route: ORAL Sig: Take 15 mL by mouth twice daily. as needed for tooth / mouth pain Medications Discontinued During This Encounter lisinopril (PRINIVIL) 10 mg tablet 30 t* 0 10/07/2018 10/14/2018 Route: ORAL Sig: Take 1 tablet by mouth once daily. Disc: Reason for discontinue is not on file. insulin glargine (LANTUS SOLOSTAR U-* 5 Pen 5 09/03/2018 10/14/2018 Route: SUBCUTANEOUS Sig: Inject 10 Units subcutaneously twice daily. Disc: Adjust Sig - Block E-Cancel Encounter Status:Closed by TRISH JACKSON on 10/14/18 BASIC METABOLIC PANL Collected: 10/07/2018 Status: F Source: [facility] 5:00 PM [facility] REPOSITORY TYPE CODE TESTS RESULT OUT OF REFERENCE UNITS RANGE LAB GLU 74-99 mg/dL High Glucose 242 Result Comment: The [place] [employer] (ADA) provides guidance for cutoff values for fasting glucose and random glucose. The ADA defines fasting as no caloric intake for at least 8 hours. Fas ting plasma glucose results between 100 to 125 mg/dL indicate increased risk for diabetes (prediabetes). Fasting plasma glucose results greater than or equal to 126 mg/dL meet the criteria for diagnosis of diabetes. In the absence of unequivocal hyperglycemia, results should be confirmed by repeat testing. In a patient with classic symptoms of hyperglycemia or hyperglycemic crisis, random plasma glucose results greater than or equal to 200 mg/dL meet the criteria for diagnosis of diabetes. Reference: Standards of Medical Care in Diabetes 2016, [place] [employer]. Diabetes Care. 2016.39(Suppl 1). LAB BUN 7-21 mg/dL BUN 18 LAB CRET 0.58-0.96 mg/dL Creatinine High 1.23 LAB NA 136-144 mmol/L Sodium 139 LAB K 3.7-5.1 mmol/L Potassium 3.8 LAB CL 97-105 mmol/L Chloride 103 LAB CO2 22-30 mmol/L Low CO2 19 LAB AGAP 9-18 mmol/L Anion Gap 17 LAB CA 8.5-10.2 mg/dL Calcium, Total 10.1 LAB GFRAA eGFR- Amer. 56 LAB GFRNAA . eGFR-All Other Races 46 Result Comment: eGFR (Estimated GFR) Units of measure: mL/min/1.73 meters squared eGFR is derived from the reexpressed MDRD Study equation using the following parameters: serum creatinine, age, gender and race. The creatinine assay has been calibrated to be traceable to IDMS. An eGFR <60 mL/min/1.73m2 for >3 months is consistent with chronic kidney disease. Refer to KDOQI guidelines for clinical interpretation. In patients with unstable renal function, e.g. those with acute kidney injury, the eGFR may not accurately reflect actual GFR. Performed By: #### BMP #### [facility] [address] [id number] PROGRESS Observed: 10/07/2018 Status: COMPLETED Source: [facility] 4:15 PM [facility] REPOSIT[facility] HNO ID: [id number] Author: Lucinda Stephens (Collette) Julio Service: (none) Author Type: Nurse Practitioner Type: Progress Notes Filed: 10/07/2018 5:06 PM Note Text: Chief Complaint Patient presents with: Hypertension: patient states has been checking blood pressure at home and has been elevated Headache: x 6 weeks has gotten worse HPI Debora Meyers is a 53 year old female who presents here today for Evaluation of hypertension for the past 6 weeks with headaches which have been worse the last 4-5 days. Has been on BP medications in the past but cannot recall why they were stopped. Lisinopril 2.5 mg on med list, does not think she is or has been taking. Recent Prednisone taper for URI sx. Has home stressors including asking for divorce which she attributes to hypertension. Has Fibromyalgia and requesting BP be taken on forearm of right arm. When questioned further she is adamant and refusing ER for further treatment. Hospital admission earlier this summer for dehydration and NIDA 2/2 sedating meds. F/U note reviewed. Lasix was discontinued at that time. Last 6 Encounter BP Readings: Date: BP: 10/07/2018 160/110 09/27/2018 140/92 09/05/2018 128/86 08/12/2018 148/80[left wrist[ 06/14/2018 160/100 04/24/2018 114/80 Also has lingering URI symptoms including wheezing, cough. Completed ATB therapy and felt better. Symptoms returned 2 days ago, including the rattling cough, fever, increased fatigue. Past medical history, appointments, medications, allergies reviewed. Previous Medical History PAST MEDICAL HISTORY Diagnosis Date - Allergic rhinitis used to receive allergy shots from Dr. Brown - Alopecia, unspecified 08/29/2012 - Anticoagulated on Coumadin INR goal 3.0 to 4.0 - Anxiety - Asthma - Benign neoplasm of stomach - Bipolar disorder, unspecified 08/29/2012 - Diabetes mellitus type 2, controlled, without complications (HCC) 08/12/2007 In records from treatment after elevated sugars in 2001 during hospital stay; no longer on any meds and sugars have been fine--either normal or just in impaired fasting glucose level - Embolism and thrombosis (HCC) 08/14/2005 - Environmental allergies 01/17/2012 - Exostosis of unspecified site 09/27/2010 - Fibromyalgia - Goiter, unspecified - Hypothyroidism 10/28/2009 - Nausea alone - Obesity - STACY treated with BiPAP [facility] supplier - Other diseases of lung, not elsewhere classified - Other hammer toe (acquired) 09/27/2010 - RA (rheumatoid arthritis) (HCC) - 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 also elevated BMI . RECOMMENDATIONS are 1.weight loss.2. not seen significant sleep apnea however absense or REM sleep sleep apnea may be understimated.Extrinsic factors leading to excessive daytime somnolence such as mood disturbances and or medication effect may be a factor Previous Surgical History PAST SURGICAL HISTORY Procedure Laterality Date - COLONOSCOP W/ OR W/O BRSH SPEC 03-06-13 Colonoscopy - EGD W/O OR W/BRUSH/WASH 02/25/2007 EGD - EGD W/O OR W/BRUSH/WASH 11/03/2011 EGD - PAST SURGICAL HISTORY OF [place] except cervix was left in; complicated with wound infection; [facility] - PAST SURGICAL HISTORY OF fundoplication May 1991 - PAST SURGICAL HISTORY OF right foot surgery on achilles tendon - PAST SURGICAL HISTORY OF 09/16/13 bone spur removed from right foot - PAST SURGICAL HISTORY OF 08/2014 Intrathecal pump implant for chronic back pain ([facility]) - PULMONARY FUNCTION TEST 05/04/05 - REMOVAL ADENOIDS,PRIMARY,<12 Y/O Adenoidectomy - REMOVAL GALLBLADDER 1990 Cholecystectomy - REMOVAL OF TONSILS,<12 Y/O Tonsillectomy - TOTAL ABDOM HYSTERECTOMY 2008 polycystic ovaries - UVULECTOMY EXCISION OF UVULA 2004 Family History FAMILY HISTORY Problem Relation Age of Onset - Adopted: Yes - None Mother - Alcohol/Drug Father - None Sister BOWEL PROBLEMS Patient Allergies ALLERGIES Allergen Reactions - Environmental [Othe* Rash, Cough - Vitamin K Swelling - Cholestyramine Other: See Comments constipation - Ibuprofen Diarrhea - Macrobid [Nitrofura* Rash states that broke out all over with rash last time was given this in September 2010 - Peroxide [Other] Intolerance - Sulfa (Sulfonamide * Rash - Tylenol [Acetaminop* Vomiting Nausea Current Medications Current Outpatient Prescriptions on File Prior to Visit: topiramate (TOPAMAX) 100 mg tablet Take 100 mg by mouth twice daily. tiZANidine (ZANAFLEX) 2 mg tablet Take 1 tablet by mouth every 8 hours as needed (muscle spasms, neck pain and headache). May make drowsy insulin glargine (LANTUS SOLOSTAR U-100 INSULIN) 100 unit/mL (3 mL) inpn Inject 10 Units subcutaneously twice daily. rOPINIRole (REQUIP) 1 mg tablet Take 1 tablet by mouth four times daily. As directed Omeprazole 40 mg capsule Take 1 capsule by mouth once daily. clonazePAM (KLONOPIN) 1 mg tablet Take 0.5-1 tablets by mouth daily at bedtime for 90 days. Alpha Lipoic Acid 600 mg cap Take 1 capsule by mouth twice daily. insulin needles, DISPOSABLE, (BD INSULIN PEN NEEDLE UF) 31 gauge x 5/16 ndle Use with insulin pens 5 times daily, or as directed, Dx: E11.22 topiramate (TOPAMAX) 50 mg tablet Take 1 tablet by mouth three times daily. for headache insulin lispro (HUMALOG KWIKPEN INSULIN) 100 unit/mL inpn Inject 10 Units subcutaneously w MEALS. Three times daily loratadine (CLARITIN) 10 mg tablet Take 1 tablet by mouth once daily. verapamil (CALAN, ISOPTIN) 40 mg tablet Take 1 tablet by mouth three times daily. atorvastatin (LIPITOR) 10 mg tablet Take 1 tablet by mouth daily at bedtime. For cholesterol. dicyclomine (BENTYL) 10 mg capsule Take 1 capsule by mouth four times daily as needed (cramping pains and urgency with bowels). ondansetron (ZOFRAN) 4 mg tablet Take 1 tablet by mouth every 8 hours as needed for Nausea/Vomiting. levothyroxine (LEVOXYL) 100 mcg tablet Take 1 tablet by mouth daily before breakfast. blood sugar diagnostic (TRUE METRIX GLUCOSE TEST STRIP) test strip Test blood sugar 4 x daily. Dx: E11.22. Insulin use: Yes adalimumab (HUMIRA) 40 mg/0.8 mL injection Inject 40 mg subcutaneously one time only. nystatin (MYCOSTATIN) 100,000 unit/mL suspension 1 tsp swish and swallow until gone, 4 times daily fluticasone (FLONASE) 50 mcg/actuation nasal spray Use 1-2 Sprays in each nostril once daily. Cetirizine (ZYRTEC) 10 mg cap Take by mouth daily at bedtime. fluticasone-vilanterol (BREO ELLIPTA) 200-25 mcg/dose inhaler Inhale 1 Inhalation as instructed once daily. albuterol HFA (PROVENTIL HFA, VENTOLIN HFA) 90 mcg/actuation inhaler Inhale 2 Puffs as instructed every 4 hours as needed (for cough, wheezing, chest tightness or shortness of breath. Use with spacer. ). insulin needles, DISPOSABLE, (UNIFINE PENTIPS) 31 gauge x 5/16 ndle Inject 1 Each subcutaneously four times daily. cholecalciferol (VITAMIN D3) 5,000 unit tab Take 1 tablet by mouth once daily. warfarin (COUMADIN) 7.5 mg tablet Take 1 tablet by mouth daily as directed. warfarin (COUMADIN) 5 mg tablet Take 1 tablet by mouth once daily. SHENG - 7.5mg , sun and 5mg all other days or as directed multivitamin with minerals (HAIR,SKIN AND NAILS) tablet Take 1 tablet by mouth three times daily. alpha tocopheryl acetate (VITAMIN E) 400 unit capsule Take 2 capsules by mouth once daily. sucralfate (CARAFATE) 100 mg/mL suspension Take 10 mL by mouth four times daily as needed. As directed (usually before meals and bedtime as needed) COMPOUNDED PRESCRIPTION SHOWER CHAIR WITH BACK DX M06.9 I74.9 COMPOUNDED PRESCRIPTION SUCTION STYLE GRAB BAR FOR SHOWER WALL INSTALLATION DX M 06.9 I 74.9 albuterol HFA (PROAIR HFA) 90 mcg/actuation inhaler Inhale 2 Puffs as instructed every 4 hours as needed for Wheezing/Shortness of Breath. COUMADIN 1 mg tablet take 5mg daily except for Sunday, take 7.5 mg on Sunday or as directedDO NOT SUBSITUTE WITH GENERIC. QUEtiapine (SEROQUEL) 25 mg tablet Take 1 tablet by mouth twice daily. Blood Pressure Test Kit-Wrist kit Use to check blood pressure once daily as directed DX:I10 hydroxychloroquine (PLAQUENIL) 200 mg tablet Take 1 tablet by mouth once daily. CALCIUM CARB/MAGNESIUM OX,CARB (YASMINE-MAG ORAL) Take by mouth. nystatin (MYCOSTATIN) cream Apply 1 application to affected area twice daily. As needed escitalopram oxalate (LEXAPRO) 20 mg tablet Take 1 tablet by mouth once daily. COMPOUNDED PRESCRIPTION Morphine 15 mg per pump filled every [address] Wetzel Lactobacillus acidophilus (PROBIOTIC) 10 billion cell cap Take 2 tablets by mouth daily at bedtime. vitamin b complex (B COMPLETE) tab Take 1 tablet by mouth once daily. COMPOUNDED PRESCRIPTION Decrease BiPAP settings to 11/5 cmH2O. Diagnosis G47.33 Miscellaneous Medical Supply misc CUSTOM JOBST KNEE HI COMPRESSION STOCKING 30-40MM/HG. Dispense 2 pair Diagnosis:(I87.2) Venous insufficiency of both lower extremities; (R60.9) Edema ketoconazole (NIZORAL) 2 % cream Apply 1 application to affected area once daily. as needed to corners of lips and other rash as directed [place]-3 Fatty Acids-Vitamin E (FISH OIL) 1,000 mg cap Take 1 capsule by mouth three times daily. cefdinir (OMNICEF) 300 mg capsule Take 1 capsule by mouth twice daily for 10 days. enoxaparin (LOVENOX) 40 mg/0.4 mL syrg 40 mg subcutaneous every 12 hours starting August 12 in the morning; take only the morning dose August 14; do not take August 15 (day of procedure); resume 40 mg every 12 hours starting evening of August 16 ; continue until INR therapeutic melatonin 1 mg tablet Take 1 tablet by mouth daily at bedtime. Benzonatate 200 mg capsule Take 1 capsule by mouth three times daily as needed. triamcinolone acetonide (KENALOG) 0.1 % cream Apply 1 application to affected area three times daily as needed (itchy rash/psoriasis on hands). Apply sparingly lisinopril 2.5 mg tablet TAKE 1 TABLET BY MOUTH EVERY DAY albuterol (PROVENTIL) 2.5 mg /3 mL (0.083 %) nebulizer solution Use 3 mL via nebulizer every 6 hours as needed. budesonide-formoterol (SYMBICORT) 160-4.5 mcg/actuation inhaler Inhale 2 Puffs as instructed twice daily. No current facility-administered medications on file prior to visit. Social History Social History Marital status: Spouse name: Louis Years of education: Number of children: 0 Social History Main Topics Smoking status: Never Smoker Smokeless tobacco: Never Used Comment: Parents briefly smoked in childhood home. Alcohol use: No Drug use: No Sexual activity: Yes Partners with: Male control/protection: Condom Social History Narrative Birds in home. Basement occasionally wet. Review of Symptoms REVIEW OF SYSTEMS GENERAL: Fatigue, Positive for fever ., malaise . HEENT: No changes in hearing or vision, no nose bleeds or other nasal problems, Head Positive for headache ., Nose Positive for congestion . NECK: Positive for swollen glands . RESPIRATORY: Cough; dry, Wheezing, Shortness of breath CARDIOVASCULAR: Cough, Shortness of breath, Hypertension, swelling in legs GI: Negative for abdominal discomfort, vomiting and Positive for diarrhea ., nausea . : No history of dysuria, frequency or incontinence PSYCH: sleep fragmented, Positive for depression: ., sleep disturbance: ., severe psychosocial stressors: . and marital problems: . NEURO: Migraine headaches and SEE HPI EXAM: BP 160/110 (BP Site: Right Arm, BP Position: Sitting, BP Cuff Size: Large Adult) Pulse 110 Temp 37.7 ?C (99.9 ?F) (Tympanic) Resp 22 Wt 121.1 kg (267 lb) BMI 52.14 kg/m? General Appearance: Well appearing, alert, in no acute distress, well-hydrated, well nourished. Flat affect. Head: Normocephalic, no masses, lesions, tenderness or abnormalities. Nose/Sinuses: Nares normal, septum midline, mucosa normal, no drainage or sinus tenderness. Oropharynx: Lips, mucosa, and tongue normal, teeth and gums normal, oropharynx normal. Neck: Supple, no adenopathy; thyroid symmetric, normal size, no bruits. Lungs: lungs clear to auscultation. No wheezing, rhonchi, rales. Heart: RRR without murmur, gallop, or rubs. No ectopy. Abdomen: Normal abdominal exam, Positive findings: tenderness mild RUQ. Neurologic: Gait normal. Reflexes normal and symmetric. Sensation grossly intact. CN II-XII intact. Health Maintenance List BP CONTROLLED (<130/80) due on 1985 STEROID INHALER ADHERENCE due on 1985 PAP EVERY 5 YEARS due on 04/25/2018 HPV EVERY 5 YEARS due on 04/25/2018 DIABETIC FOOT EXAM due on 05/23/2018 DILATED RETINAL EXAM due on 07/05/2018 MAMMOGRAM due on 11/05/2018 STATIN MED ADHERENCE due on 10/19/2018 STEROID INHALER PRESCRIBED due on 10/19/2018 DIABETES MED ADHERENCE due on 10/19/2018 FLACO/ARB MED ADHERENCE due on 10/19/2018 HEMOGLOBIN/HEMATOCRIT due on 11/13/2018 HBA1C due on 02/06/2019 URINE ALBUMIN:CREATININE RATIO due on 04/12/2019 LDL CHOLESTEROL due on 04/12/2019 SERUM CREATININE due on 06/28/2019 ANNUAL PCP TEAM CHRONIC DISEASE VISIT due on 08/12/2019 DTAP,TDAP,TD(2 - Td) due on 06/14/2022 COLORECTAL CANCER SCREENING,SEE MODIFIER due on 03/01/2023 TWO PNEUMOVAX 5 YEARS APART PRIOR TO AGE 65 Completed ADULT PREVNAR-13 Completed INFLUENZA Completed ASSESSMENT/PLAN: 1. Essential hypertension - ICD9: 401.9, ICD10: I10 - poor control - Add triameterene/HCTZ (Maxzide), lisinopril (Zestril/Prinivil) - Recommend home blood pressure monitoring, to bring results in on next visit - Goal of BP <130/80, Will add/increase Lisinopril to 10 mg and add HCTZ 12.5 mg daily. She will stop at lab today to check BMP today and to repeat in one week to monitor K+ and GFR. Follow up apt facilitated. - LISINOPRIL 10 MG TABLET - BASIC METABOLIC PNL - HYDROCHLOROTHIAZIDE 12.5 MG CAPSULE - BASIC METABOLIC PNL -Recommended that patient go to the ER for more urgent BP treatment, and she is adamant that she will not go despite explanation of being at risk for stroke and OK with elevated BP. Instructed patient to go to the ED if her BP increases or sx of CARRERA and/or other sx develop. 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 Has been on BP medications in the past but cannot recall why they were stopped. Lisinopril 2.5 mg on med list, does not think she is or has been taking. Recent Prednisone taper for URI sx. Has home stressors including asking for divorce which she attributes to hypertension. Has Fibromyalgia and requesting BP be taken on forearm of right arm. When questioned further she is adamant and refusing ER for further treatment. Hospital admission earlier this summer for dehydration and NIDA 2/2 sedating meds. F/U note reviewed. Lasix was discontinued at that time. Last 6 Encounter BP Readings: Date: BP: 10/07/2018 160/110 09/27/2018 140/92 09/05/2018 128/86 08/12/2018 148/80[left wrist[ 06/14/2018 160/100 04/24/2018 114/80 Also has lingering URI symptoms including wheezing, cough. Completed ATB therapy and felt better. Symptoms returned 2 days ago, including the rattling cough, fever, increased fatigue. Past medical history, appointments, medications, allergies reviewed. Previous Medical History PAST MEDICAL HISTORY Diagnosis Date - Allergic rhinitis used to receive allergy shots from Dr. Brown - Alopecia, unspecified 08/29/2012 - Anticoagulated on Coumadin INR goal 3.0 to 4.0 - Anxiety - Asthma - Benign neoplasm of stomach - Bipolar disorder, unspecified 08/29/2012 - Diabetes mellitus type 2, controlled, without complications (HCC) 08/12/2007 In records from treatment after elevated sugars in 2001 during hospital stay; no longer on any meds and sugars have been fine--either normal or just in impaired fasting glucose level - Embolism and thrombosis (HCC) 08/14/2005 - Environmental allergies 01/17/2012 - Exostosis of unspecified site 09/27/2010 - Fibromyalgia - Goiter, unspecified - Hypothyroidism 10/28/2009 - Nausea alone - Obesity - STACY treated with BiPAP [facility] supplier - Other diseases of lung, not elsewhere classified - Other hammer toe (acquired) 09/27/2010 - RA (rheumatoid arthritis) (HCC) - 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 also elevated BMI . RECOMMENDATIONS are 1.weight loss.2. not seen significant sleep apnea however absense or REM sleep sleep apnea may be understimated.Extrinsic factors leading to excessive daytime somnolence such as mood disturbances and or medication effect may be a factor Previous Surgical History PAST SURGICAL HISTORY Procedure Laterality Date - COLONOSCOP W/ OR W/O BRSH SPEC 03-06-13 Colonoscopy - EGD W/O OR W/BRUSH/WASH 02/25/2007 EGD - EGD W/O OR W/BRUSH/WASH 11/03/2011 EGD - PAST SURGICAL HISTORY OF LAURENCE except cervix was left in; complicated with wound infection; [facility] - PAST SURGICAL HISTORY OF fundoplication May 1991 - PAST SURGICAL HISTORY OF right foot surgery on achilles tendon - PAST SURGICAL HISTORY OF 09/16/13 bone spur removed from right foot - PAST SURGICAL HISTORY OF 08/2014 Intrathecal pump implant for chronic back pain ([facility]) - PULMONARY FUNCTION TEST 05/04/05 - REMOVAL ADENOIDS,PRIMARY,<12 Y/O Adenoidectomy - REMOVAL GALLBLADDER 1990 Cholecystectomy - REMOVAL OF TONSILS,<12 Y/O Tonsillectomy - TOTAL ABDOM HYSTERECTOMY 2008 polycystic ovaries - UVULECTOMY EXCISION OF UVULA 2004 Family History FAMILY HISTORY Problem Relation Age of Onset - Adopted: Yes - None Mother - Alcohol/Drug Father - None Sister BOWEL PROBLEMS Patient Allergies ALLERGIES Allergen Reactions - Environmental [Othe* Rash, Cough - Vitamin K Swelling - Cholestyramine Other: See Comments constipation - Ibuprofen Diarrhea - Macrobid [Nitrofura* Rash states that broke out all over with rash last time was given this in September 2010 - Peroxide [Other] Intolerance - Sulfa (Sulfonamide * Rash - Tylenol [Acetaminop* Vomiting Nausea Current Medications Current Outpatient Prescriptions on File Prior to Visit: topiramate (TOPAMAX) 100 mg tablet Take 100 mg by mouth twice daily. tiZANidine (ZANAFLEX) 2 mg tablet Take 1 tablet by mouth every 8 hours as needed (muscle spasms, neck pain and headache). May make drowsy insulin glargine (LANTUS SOLOSTAR U-100 INSULIN) 100 unit/mL (3 mL) inpn Inject 10 Units subcutaneously twice daily. rOPINIRole (REQUIP) 1 mg tablet Take 1 tablet by mouth four times daily. As directed Omeprazole 40 mg capsule Take 1 capsule by mouth once daily. clonazePAM (KLONOPIN) 1 mg tablet Take 0.5-1 tablets by mouth daily at bedtime for 90 days. Alpha Lipoic Acid 600 mg cap Take 1 capsule by mouth twice daily. insulin needles, DISPOSABLE, (BD INSULIN PEN NEEDLE UF) 31 gauge x 16 ndle Use with insulin pens 5 times daily, or as directed, Dx: E11.22 topiramate (TOPAMAX) 50 mg tablet Take 1 tablet by mouth three times daily. for headache insulin lispro (HUMALOG KWIKPEN INSULIN) 100 unit/mL inpn Inject 10 Units subcutaneously w MEALS. Three times daily loratadine (CLARITIN) 10 mg tablet Take 1 tablet by mouth once daily. verapamil (CALAN, ISOPTIN) 40 mg tablet Take 1 tablet by mouth three times daily. atorvastatin (LIPITOR) 10 mg tablet Take 1 tablet by mouth daily at bedtime. For cholesterol. dicyclomine (BENTYL) 10 mg capsule Take 1 capsule by mouth four times daily as needed (cramping pains and urgency with bowels). ondansetron (ZOFRAN) 4 mg tablet Take 1 tablet by mouth every 8 hours as needed for Nausea/Vomiting. levothyroxine (LEVOXYL) 100 mcg tablet Take 1 tablet by mouth daily before breakfast. blood sugar diagnostic (TRUE METRIX GLUCOSE TEST STRIP) test strip Test blood sugar 4 x daily. Dx: E11.22. Insulin use: Yes adalimumab (HUMIRA) 40 mg/0.8 mL injection Inject 40 mg subcutaneously one time only. nystatin (MYCOSTATIN) 100,000 unit/mL suspension 1 tsp swish and swallow until gone, 4 times daily fluticasone (FLONASE) 50 mcg/actuation nasal spray Use 1-2 Sprays in each nostril once daily. Cetirizine (ZYRTEC) 10 mg cap Take by mouth daily at bedtime. fluticasone-vilanterol (BREO ELLIPTA) 200-25 mcg/dose inhaler Inhale 1 Inhalation as instructed once daily. albuterol HFA (PROVENTIL HFA, VENTOLIN HFA) 90 mcg/actuation inhaler Inhale 2 Puffs as instructed every 4 hours as needed (for cough, wheezing, chest tightness or shortness of breath. Use with spacer. ). insulin needles, DISPOSABLE, (UNIFINE PENTIPS) 31 gauge x 5/16 ndle Inject 1 Each subcutaneously four times daily. cholecalciferol (VITAMIN D3) 5,000 unit tab Take 1 tablet by mouth once daily. warfarin (COUMADIN) 7.5 mg tablet Take 1 tablet by mouth daily as directed. warfarin (COUMADIN) 5 mg tablet Take 1 tablet by mouth once daily. SHENG - 7.5mg , sun and 5mg all other days or as directed multivitamin with minerals (HAIR,SKIN AND NAILS) tablet Take 1 tablet by mouth three times daily. alpha tocopheryl acetate (VITAMIN E) 400 unit capsule Take 2 capsules by mouth once daily. sucralfate (CARAFATE) 100 mg/mL suspension Take 10 mL by mouth four times daily as needed. As directed (usually before meals and bedtime as needed) COMPOUNDED PRESCRIPTION SHOWER CHAIR WITH BACK DX M06.9 I74.9 COMPOUNDED PRESCRIPTION SUCTION STYLE GRAB BAR FOR SHOWER WALL INSTALLATION DX M 06.9 I 74.9 albuterol HFA (PROAIR HFA) 90 mcg/actuation inhaler Inhale 2 Puffs as instructed every 4 hours as needed for Wheezing/Shortness of Breath. COUMADIN 1 mg tablet take 5mg daily except for Sunday, take 7.5 mg on Sunday or as directedDO NOT SUBSITUTE WITH GENERIC. QUEtiapine (SEROQUEL) 25 mg tablet Take 1 tablet by mouth twice daily. Blood Pressure Test Kit-Wrist kit Use to check blood pressure once daily as directed DX:I10 hydroxychloroquine (PLAQUENIL) 200 mg tablet Take 1 tablet by mouth once daily. CALCIUM CARB/MAGNESIUM OX,CARB (YASMINE-MAG ORAL) Take by mouth. nystatin (MYCOSTATIN) cream Apply 1 application to affected area twice daily. As needed escitalopram oxalate (LEXAPRO) 20 mg tablet Take 1 tablet by mouth once daily. COMPOUNDED PRESCRIPTION Morphine 15 mg per pump filled every [address] Wetzel Lactobacillus acidophilus (PROBIOTIC) 10 billion cell cap Take 2 tablets by mouth daily at bedtime. vitamin b complex (B COMPLETE) tab Take 1 tablet by mouth once daily. COMPOUNDED PRESCRIPTION Decrease BiPAP settings to 11/5 cmH2O. Diagnosis G47.33 Miscellaneous Medical Supply [facility] CUSTOM JOBST KNEE HI COMPRESSION STOCKING 30-40MM/HG. Dispense 2 pair Diagnosis:(I87.2) Venous insufficiency of both lower extremities; (R60.9) Edema ketoconazole (NIZORAL) 2 % cream Apply 1 application to affected area once daily. as needed to corners of lips and other rash as directed [place]-3 Fatty Acids-Vitamin E (FISH OIL) 1,000 mg cap Take 1 capsule by mouth three times daily. cefdinir (OMNICEF) 300 mg capsule Take 1 capsule by mouth twice daily for 10 days. enoxaparin (LOVENOX) 40 mg/0.4 mL syrg 40 mg subcutaneous every 12 hours starting August 12 in the morning; take only the morning dose August 14; do not take August 15 (day of procedure); resume 40 mg every 12 hours starting evening of August 16 ; continue until INR therapeutic melatonin 1 mg tablet Take 1 tablet by mouth daily at bedtime. Benzonatate 200 mg capsule Take 1 capsule by mouth three times daily as needed. triamcinolone acetonide (KENALOG) 0.1 % cream Apply 1 application to affected area three times daily as needed (itchy rash/psoriasis on hands). Apply sparingly lisinopril 2.5 mg tablet TAKE 1 TABLET BY MOUTH EVERY DAY albuterol (PROVENTIL) 2.5 mg /3 mL (0.083 %) nebulizer solution Use 3 mL via nebulizer every 6 hours as needed. budesonide-formoterol (SYMBICORT) 160-4.5 mcg/actuation inhaler Inhale 2 Puffs as instructed twice daily. No current facility-administered medications on file prior to visit. Social History Social History Marital status: Spouse name: Louis Years of education: Number of children: 0 Social History Main Topics Smoking status: Never Smoker Smokeless tobacco: Never Used Comment: Parents briefly smoked in childhood home. Alcohol use: No Drug use: No Sexual activity: Yes Partners with: Male control/protection: Condom Social History Narrative Birds in home. Basement occasionally wet. Review of Symptoms REVIEW OF SYSTEMS GENERAL: Fatigue, Positive for fever ., malaise . HEENT: No changes in hearing or vision, no nose bleeds or other nasal problems, Head Positive for headache ., Nose Positive for congestion . NECK: Positive for swollen glands . RESPIRATORY: Cough; dry, Wheezing, Shortness of breath CARDIOVASCULAR: Cough, Shortness of breath, Hypertension, swelling in legs GI: Negative for abdominal discomfort, vomiting and Positive for diarrhea ., nausea . : No history of dysuria, frequency or incontinence PSYCH: sleep fragmented, Positive for depression: ., sleep disturbance: ., severe psychosocial stressors: . and marital problems: . NEURO: Migraine headaches and SEE HPI EXAM: BP 160/110 (BP Site: Right Arm, BP Position: Sitting, BP Cuff Size: Large Adult) Pulse 110 Temp 37.7 ?C (99.9 ?F) (Tympanic) Resp 22 Wt 121.1 kg (267 lb) BMI 52.14 kg/m? General Appearance: Well appearing, alert, in no acute distress, well-hydrated, well nourished. Flat affect. Head: Normocephalic, no masses, lesions, tenderness or abnormalities. Nose/Sinuses: Nares normal, septum midline, mucosa normal, no drainage or sinus tenderness. Oropharynx: Lips, mucosa, and tongue normal, teeth and gums normal, oropharynx normal. Neck: Supple, no adenopathy; thyroid symmetric, normal size, no bruits. Lungs: lungs clear to auscultation. No wheezing, rhonchi, rales. Heart: RRR without murmur, gallop, or rubs. No ectopy. Abdomen: Normal abdominal exam, Positive findings: tenderness mild RUQ. Neurologic: Gait normal. Reflexes normal and symmetric. Sensation grossly intact. CN II-XII intact. Health Maintenance List BP CONTROLLED (<130/80) due on 1985 STEROID INHALER ADHERENCE due on 1985 PAP EVERY 5 YEARS due on 04/25/2018 HPV EVERY 5 YEARS due on 04/25/2018 DIABETIC FOOT EXAM due on 05/23/2018 DILATED RETINAL EXAM due on 07/05/2018 MAMMOGRAM due on 11/05/2018 STATIN MED ADHERENCE due on 10/19/2018 STEROID INHALER PRESCRIBED due on 10/19/2018 DIABETES MED ADHERENCE due on 10/19/2018 FLACO/ARB MED ADHERENCE due on 10/19/2018 HEMOGLOBIN/HEMATOCRIT due on 11/13/2018 HBA1C due on 02/06/2019 URINE ALBUMIN:CREATININE RATIO due on 04/12/2019 LDL CHOLESTEROL due on 04/12/2019 SERUM CREATININE due on 06/28/2019 ANNUAL PCP TEAM CHRONIC DISEASE VISIT due on 08/12/2019 DTAP,TDAP,TD(2 - Td) due on 06/14/2022 COLORECTAL CANCER SCREENING,SEE MODIFIER due on 03/01/2023 TWO PNEUMOVAX 5 YEARS APART PRIOR TO AGE 67 Completed ADULT PREVNAR-13 Completed INFLUENZA Completed ASSESSMENT/PLAN: 1. Essential hypertension - ICD9: 401.9, ICD10: I10 - poor control - Add triameterene/HCTZ (Maxzide), lisinopril (Zestril/Prinivil) - Recommend home blood pressure monitoring, to bring results in on next visit - Goal of BP <130/80, Will add/increase Lisinopril to 10 mg and add HCTZ 12.5 mg daily. She will stop at lab today to check BMP today and to repeat in one week to monitor K+ and GFR. Follow up apt facilitated. - LISINOPRIL 10 MG TABLET - BASIC METABOLIC PNL - HYDROCHLOROTHIAZIDE 12.5 MG CAPSULE - BASIC METABOLIC PNL -Recommended that patient go to the ER for more urgent BP treatment, and she is adamant that she will not go despite explanation of being at risk for stroke and OK with elevated BP. Instructed patient to go to the ED if her BP increases or sx of CARRERA and/or other sx develop. Lucinda Kim, MSN BOTTLE HOP.[place] Kim, MSN BOTTLE HOP.HOME THEATER INSTALLER 10/07/2018 4:48 PM Signed 1. Continue Isoptin (Verapamil) as you have been. 2. Add Lisinopril 10 mg once a day for BP 3. Add HCTZ 12.5 mg once a day for BP 4. Important to stay hydrated. Check lab today and again in one week. 5. Follow apt in one week Referring Provider: SELF [200] Allergies As of Date: 10/07/2018 Noted Allergy Reaction environmental [Other] 07/14/2005 2 - Rash 3 - Cough VITAMIN K 07/14/2005 7 - Swelling CHOLESTYRAMINE 03/31/2013 14 - Other: See Comments Comments: constipation IBUPROFEN 06/29/2009 6 - Diarrhea MACROBID (NITROFURANTOIN MONOHYD/*12/06/2010 2 - Rash Comments: states that broke out all over with rash last time was given this in September 2010 peroxide [Other] 07/14/2005 5 - Intolerance SULFA (SULFONAMIDE ANTIBIOTICS) 02/05/2013 2 - Rash TYLENOL (ACETAMINOPHEN) 03/17/2014 11 - Vomiting Comments: Nausea Date Reviewed: 10/07/2018 Reviewed by: Edy Portillo LPN - Fully Assessed Reason for Visit: Hypertension [168] Cmt: patient states has been checking blood pressure at home and has been elevated Headache [52] Cmt: x 6 weeks has gotten worse Reason For Visit History Recorded Primary Visit Diagnosis:Essential hypertension [I10] Order(s):lisinopril (PRINIVIL) 10 mg tabletTake 1 tablet by mouth once daily.Disp: 30 tabletRfl: 0 BASIC METABOLIC PNL [SQBMP] Order #: [id number] FUTURE Hydrochlorothiazide 12.5 mg capsuleTake 1 capsule by mouth once daily.Disp: 30 capsuleRfl: 0 BASIC METABOLIC PNL [SQBMP] Order #: [id number] FUTURE Prescriptions as of 10/07/2018 Sig: TOPIRAMATE 100 MG TABLET Take 100 mg by mouth twice da* TIZANIDINE 2 MG TABLET Take 1 tablet by mouth every * INSULIN GLARGINE (U-100) 100 * Inject 10 Units subcutaneousl* ROPINIROLE 1 MG TABLET Take 1 tablet by mouth four t* OMEPRAZOLE 40 MG CAPSULE,LALITO* Take 1 capsule by mouth once * CLONAZEPAM 1 MG TABLET Take 0.5-1 tablets by mouth d* ALPHA LIPOIC ACID 600 MG CAPS* Take 1 capsule by mouth twice* PEN NEEDLE, DIABETIC 31 GAUGE* Use with insulin pens 5 times* TOPIRAMATE 50 MG TABLET Take 1 tablet by mouth three * INSULIN LISPRO (U-100) 100 UN* Inject 10 Units subcutaneousl* LORATADINE 10 MG TABLET Take 1 tablet by mouth once d* VERAPAMIL 40 MG TABLET Take 1 tablet by mouth three * ATORVASTATIN 10 MG TABLET Take 1 tablet by mouth daily * DICYCLOMINE 10 MG CAPSULE Take 1 capsule by mouth four * ONDANSETRON HCL 4 MG TABLET Take 1 tablet by mouth every * LEVOTHYROXINE 100 MCG TABLET Take 1 tablet by mouth daily * BLOOD SUGAR DIAGNOSTIC STRIPS Test blood sugar 4 x daily. D* ADALIMUMAB 40 MG/0.8 ML SUBCU* Inject 40 mg subcutaneously o* NYSTATIN 100,000 UNIT/ML ORAL* 1 tsp swish and swallow until* FLUTICASONE 50 MCG/ACTUATION * Use 1-2 Sprays in each nostri* CETIRIZINE 10 MG CAPSULE Take by mouth daily at bedtim* FLUTICASONE 200 MCG-VILANTERO* Inhale 1 Inhalation as instru* ALBUTEROL SULFATE HFA 90 MCG/* Inhale 2 Puffs as instructed * PEN NEEDLE, DIABETIC 31 GAUGE* Inject 1 Each subcutaneously * CHOLECALCIFEROL (VITAMIN D3) * Take 1 tablet by mouth once d* WARFARIN 7.5 MG TABLET Take 1 tablet by mouth daily * WARFARIN 5 MG TABLET Take 1 tablet by mouth once d* MULTIVITAMIN WITH MINERALS TA* Take 1 tablet by mouth three * VITAMIN E 400 UNIT CAPSULE Take 2 capsules by mouth once* SUCRALFATE 100 MG/ML ORAL BART* Take 10 mL by mouth four time* COMPOUNDED PRESCRIPTION SHOWER CHAIR WITH BACK D* COMPOUNDED PRESCRIPTION SUCTION STYLE GRAB BAR FOR SH* ALBUTEROL SULFATE HFA 90 MCG/* Inhale 2 Puffs as instructed * COUMADIN 1 MG TABLET take 5mg daily except for Sun* QUETIAPINE 25 MG TABLET Take 1 tablet by mouth twice * BLOOD PRESSURE TEST KIT-WRIST* Use to check blood pressure o* HYDROXYCHLOROQUINE 200 MG TAB* Take 1 tablet by mouth once d* YASMINE-MAG ORAL Take by mouth. NYSTATIN 100,000 UNIT/GRAM TO* Apply 1 application to affect* ESCITALOPRAM 20 MG TABLET Take 1 tablet by mouth once d* COMPOUNDED PRESCRIPTION Morphine 15 mg per pump fille* LACTOBACILLUS ACIDOPHILUS 10 * Take 2 tablets by mouth daily* VITAMIN B COMPLEX TABLET Take 1 tablet by mouth once d* COMPOUNDED PRESCRIPTION Decrease BiPAP settings to 11* MISCELLANEOUS MEDICAL SUPPLY * CUSTOM JOBST KNEE HI KIRSTY* KETOCONAZOLE 2 % TOPICAL CREAM Apply 1 application to affect* OMEGA-3 FATTY ACIDS-VITAMIN E* Take 1 capsule by mouth three* LISINOPRIL 10 MG TABLET Take 1 tablet by mouth once d* HYDROCHLOROTHIAZIDE 12.5 MG C* Take 1 capsule by mouth once * CEFDINIR 300 MG CAPSULE Take 1 capsule by mouth twice* ENOXAPARIN 40 MG/0.4 ML SUBCU* 40 mg subcutaneous every 12 h* MELATONIN 1 MG TABLET Take 1 tablet by mouth daily * BENZONATATE 200 MG CAPSULE Take 1 capsule by mouth three* TRIAMCINOLONE ACETONIDE 0.1 %* Apply 1 application to affect* ALBUTEROL SULFATE 2.5 MG/3 ML* Use 3 mL via nebulizer every * BUDESONIDE-FORMOTEROL HFA 160* Inhale 2 Puffs as instructed * Problem List As Of Date 10/07/2018 Noted Resolved OTHER LUNG DISEASE NEC [J98.4] Asthma [J45.909] OTHER UNSPEC SLEEP APNEA [G47.30] Dysmetabolic syndrome X [E88.81] 09/11/2011 Fibromyalgia [M79.7] Embolism and thrombosis (HCC) [I74.9] INVALID FOR*05/05/2018 GOITER NOS [E04.9] REFLUX ESOPHAGITIS [K21.0] NAUSEA ALONE [R11.0] ACUTE GASTRITIS W/O HEMORRHAGE [K29.00] INVALID FOR* CONSTIPATION NOS [K59.00] INVALID FOR* More... 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 Obstructive Sleep Apnea [G47.33] INVALID FOR* More... Hypothyroidism [E03.9] INVALID FOR* Exostosis of unspecified site [M89.8X9] INVALID FOR*11/27/2017 Other hammer toe (acquired) [M20.40] INVALID FOR*11/27/2017 Hx of hysterectomy [Z90.710] INVALID FOR* More... Allergic rhinitis [J30.9] More... 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] INVALID FOR* Environmental allergies [Z91.09] INVALID FOR*11/27/2017 Morbid obesity due to excess calories (HCC) [E6* Chronic kidney disease, stage III (moderate) [N*INVALID FOR*11/27/2017 Essential hypertension [I10] INVALID FOR* Nephrolithiasis [N20.0] INVALID FOR* Vitamin D deficiency [E55.9] INVALID FOR* Rheumatoid arthritis (HCC) [M06.9] INVALID FOR* Bipolar disorder, unspecified [F31.9] INVALID FOR* Alopecia, unspecified [L65.9] INVALID FOR*11/27/2017 Personal history of pulmonary embolism [Z86.711]INVALID FOR* Irritable bowel syndrome [K58.9] INVALID FOR* Neuropathy [G62.9] INVALID FOR* Incisional hernia [K43.2] INVALID FOR* Polycythemia, secondary [D75.1] INVALID FOR* Anticoagulated on Coumadin [Z51.81, Z79.01] INVALID FOR* STACY treated with BiPAP [G47.33] More... Type 2 DM with CKD stage 3 and hypertension (HC*INVALID FOR* Polypharmacy [Z79.899] INVALID FOR* Noncompliance with treatment [Z91.19] INVALID FOR* CKD (chronic kidney disease) stage 4, GFR 15-29*INVALID FOR*08/26/2017 Nonallergic rhinitis [J31.0] INVALID FOR* History of deep vein thrombosis [Z86.718] INVALID FOR* Hypoxemia [R09.02] INVALID FOR* More... Acute kidney injury superimposed on chronic kid*INVALID FOR* Metabolic encephalopathy [G93.41] INVALID FOR* Hyperkalemia [E87.5] INVALID FOR* Abdominal pannus [E65] INVALID FOR* Anxiety [F41.9] Other instructions from your clinician: 1. Continue Isoptin (Verapamil) as you have been. 2. Add Lisinopril 10 mg once a day for BP 3. Add HCTZ 12.5 mg once a day for BP 4. Important to stay hydrated. Check lab today and again in one week. 5. Follow apt in one week Prescriptions ordered this encounter Disp Refills Start End LISINOPRIL 10 MG TABLET 30 t* 0 10/07/2018 Route: ORAL Sig: Take 1 tablet by mouth once daily. HYDROCHLOROTHIAZIDE 12.5 MG CAPSULE 30 c* 0 10/07/2018 11/06/2018 Route: ORAL Sig: Take 1 capsule by mouth once daily. Medications Discontinued During This Encounter lisinopril 2.5 mg tablet 90 t* 3 10/19/2017 10/07/2018 Sig: TAKE 1 TABLET BY MOUTH EVERY DAY Disc: Dosage adjustment Disposition: Return in about 1 week (around 10/14/2018). Follow-up and Disposition History Recorded Encounter Status:Closed by LUCINDA KIM CNP on 10/07/18 PROGRESS Observed: 09/27/2018 Status: COMPLETED Source: [place] [id number] PM [facility] REPOSITORY HNO ID: [id number] Author: Sheeba King RN Service: (none) Author Type: (none) Type: Progress Notes Filed: 09/27/2018 4:36 PM Note Text: per written order by dr scott patient is to take 10mg Fri and 7.5mg all other days PATIENT NOTIFIED OF INFORMATION PROGRESS Observed: 09/27/2018 Status: COMPLETED Source: [place] 3:36 PM [facility] REPOSITORY HNO ID: [id number] Author: Sheeba King RN Service: (none) Author Type: (none) Type: Progress Notes Filed: 09/27/2018 3:38 PM Note Text: patient had inr completed at [facility] patients inr is 2.3 (patients inr range is 3.0-4.0) patient is currently taking 7.5mg daily patients last dose change was on 08/28/18 due to a low level of 0.9 (dose at that time was 7.5mg Tues,Thurs,Sat and 5mg all other days) patient has had no changes in medication and no missed doses and no change in diet Advised patient that they would be contacted regarding medication dose and when to follow up after information is reviewed by provider. After provider review please contact the patient with information and schedule follow up appointment with coumadin clinic. FYI- patient has been scheduled for a 1 week follow up inr on 10/04/18 XR CHEST 2V FRONTAL/LAT Observed: 09/27/2018 Status: F Source: [place] 3:02 PM [facility] REPOSITORY * * *Final Report* * * DATE OF EXAM: Sep 27 2018 3:02PM WOX [id number] - XR CHEST 2V FRONTAL/LAT / PROCEDURE REASON: Cough * * * * Physician Interpretation * * * * EXAMINATION: CHEST RADIOGRAPH (2 VIEW FRONTAL and LATERAL) CLINICAL HISTORY: Cough MQ: [id number]_5 Comparison: 05/05/2016 RESULT: Lines, tubes, and devices: None. Lungs and pleura: No focal consolidation, significant pleural effusion or pneumothorax. Cardiomediastinal silhouette: Stable. Other: No acute osseous abnormality. IMPRESSION: No acute radiographic abnormality is evident. Director Of Orthopedics: ALINE Transcribe Date/Time: Sep 27 2018 3:11P Dictated by : CAYETANO ALLEN MD This examination was interpreted and the report reviewed and electronically signed by: CAYETANO ALLEN MD on Sep 27 2018 3:15PM EST [id number] PROGRESS Observed: 09/27/2018 Status: COMPLETED Source: [place] 2:55 PM [facility] REPOSITORY HNO ID: [id number] Author: Jazmine Tucker Service: (none) Author Type: (none) Type: Progress Notes Filed: 09/27/2018 3:02 PM Note Text: Radiology Service Progress Note PATIENT NAME: Debora Meyers DATE OF SERVICE: September 27, 2018 TIME: 2:55 PM PATIENT IDENTITY VERIFICATION COMPLETED USING TWO (2) METHODS: Patient confirmed name verbally and Date of . PATIENT GENDER DATA: Female. status: : No status: NO. PATIENT RELEVANT IMPLANT DATA REVIEWED: Not Applicable RADIOLOGY DEPARTMENT: General X-ray: Exam(s) Completed: Chest X-Ray PERIPHERAL IV DATA: Not applicable SIGNED BY: Jazmine Tucker September 27, 2018 2:55 PM PROGRESS Observed: 09/27/2018 Status: COMPLETED Source: [place] 2:47 PM [facility] REPOSITORY HNO ID: [id number] Author: Jayne Lorenz Service: (none) Author Type: Physician Junior Recruiter Type: Progress Notes Filed: 09/27/2018 5:52 PM Note Text: 09/27/2018 Patient presents with: Chest Congestion Cough SUBJECTIVE: This is a 53 year old that is here today for Complaint(s) of cough and hcest congestion x 1.5 weeks. Hearing a rattling in chest the last few days. Currently Breo for Asthma. She does have albuterol inhaler at home to use prn. Notes increased SOB, no chest pain. SOB is intermittent. Has felt feverish. PAST MEDICAL HISTORY Diagnosis Date - Allergic rhinitis used to receive allergy shots from Dr. Brown - Alopecia, unspecified 08/29/2012 - Anticoagulated on Coumadin INR goal 3.0 to 4.0 - Anxiety - Asthma - Benign neoplasm of stomach - Bipolar disorder, unspecified 08/29/2012 - Diabetes mellitus type 2, controlled, without complications (HCC) 08/12/2007 In records from treatment after elevated sugars in 2001 during hospital stay; no longer on any meds and sugars have been fine--either normal or just in impaired fasting glucose level - Embolism and thrombosis (HCC) 08/14/2005 - Environmental allergies 01/17/2012 - Exostosis of unspecified site 09/27/2010 - Fibromyalgia - Goiter, unspecified - Hypothyroidism 10/28/2009 - Nausea alone - Obesity - STACY treated with BiPAP [facility] supplier - Other diseases of lung, not elsewhere classified - Other hammer toe (acquired) 09/27/2010 - RA (rheumatoid arthritis) (HCC) - 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 also elevated BMI . RECOMMENDATIONS are 1.weight loss.2. not seen significant sleep apnea however absense or REM sleep sleep apnea may be understimated.Extrinsic factors leading to excessive daytime somnolence such as mood disturbances and or medication effect may be a factor ALLERGIES Environmental [Other]; Vitamin K; Cholestyramine; Ibuprofen; Macrobid [Nitrofurantoin Monohyd/M-Cryst]; Peroxide [Other]; Sulfa (Sulfonamide Antibiotics); Tylenol [Acetaminophen] MEDICATIONS Current Outpatient Prescriptions: topiramate (TOPAMAX) 100 mg tablet Take 100 mg by mouth twice daily. tiZANidine (ZANAFLEX) 2 mg tablet Take 1 tablet by mouth every 8 hours as needed (muscle spasms, neck pain and headache). May make drowsy insulin glargine (LANTUS SOLOSTAR U-100 INSULIN) 100 unit/mL (3 mL) inpn Inject 10 Units subcutaneously twice daily. rOPINIRole (REQUIP) 1 mg tablet Take 1 tablet by mouth four times daily. As directed Omeprazole 40 mg capsule Take 1 capsule by mouth once daily. clonazePAM (KLONOPIN) 1 mg tablet Take 0.5-1 tablets by mouth daily at bedtime for 90 days. Alpha Lipoic Acid 600 mg cap Take 1 capsule by mouth twice daily. insulin needles, DISPOSABLE, (BD INSULIN PEN NEEDLE UF) 31 gauge x 5/16 ndle Use with insulin pens 5 times daily, or as directed, Dx: E11.22 topiramate (TOPAMAX) 50 mg tablet Take 1 tablet by mouth three times daily. for headache insulin lispro (HUMALOG KWIKPEN INSULIN) 100 unit/mL inpn Inject 10 Units subcutaneously w MEALS. Three times daily loratadine (CLARITIN) 10 mg tablet Take 1 tablet by mouth once daily. verapamil (CALAN, ISOPTIN) 40 mg tablet Take 1 tablet by mouth three times daily. atorvastatin (LIPITOR) 10 mg tablet Take 1 tablet by mouth daily at bedtime. For cholesterol. dicyclomine (BENTYL) 10 mg capsule Take 1 capsule by mouth four times daily as needed (cramping pains and urgency with bowels). ondansetron (ZOFRAN) 4 mg tablet Take 1 tablet by mouth every 8 hours as needed for Nausea/Vomiting. levothyroxine (LEVOXYL) 100 mcg tablet Take 1 tablet by mouth daily before breakfast. blood sugar diagnostic (TRUE METRIX GLUCOSE TEST STRIP) test strip Test blood sugar 4 x daily. Dx: E11.22. Insulin use: Yes adalimumab (HUMIRA) 40 mg/0.8 mL injection Inject 40 mg subcutaneously one time only. nystatin (MYCOSTATIN) 100,000 unit/mL suspension 1 tsp swish and swallow until gone, 4 times daily fluticasone (FLONASE) 50 mcg/actuation nasal spray Use 1-2 Sprays in each nostril once daily. Cetirizine (ZYRTEC) 10 mg cap Take by mouth daily at bedtime. fluticasone-vilanterol (BREO ELLIPTA) 200-25 mcg/dose inhaler Inhale 1 Inhalation as instructed once daily. albuterol HFA (PROVENTIL HFA, VENTOLIN HFA) 90 mcg/actuation inhaler Inhale 2 Puffs as instructed every 4 hours as needed (for cough, wheezing, chest tightness or shortness of breath. Use with spacer. ). insulin needles, DISPOSABLE, (UNIFINE PENTIPS) 31 gauge x 5/16 ndle Inject 1 Each subcutaneously four times daily. cholecalciferol (VITAMIN D3) 5,000 unit tab Take 1 tablet by mouth once daily. warfarin (COUMADIN) 7.5 mg tablet Take 1 tablet by mouth daily as directed. warfarin (COUMADIN) 5 mg tablet Take 1 tablet by mouth once daily. SHENG - 7.5mg tu, sun and 5mg all other days or as directed multivitamin with minerals (HAIR,SKIN AND NAILS) tablet Take 1 tablet by mouth three times daily. alpha tocopheryl acetate (VITAMIN E) 400 unit capsule Take 2 capsules by mouth once daily. sucralfate (CARAFATE) 100 mg/mL suspension Take 10 mL by mouth four times daily as needed. As directed (usually before meals and bedtime as needed) COMPOUNDED PRESCRIPTION SHOWER CHAIR WITH BACK DX M06.9 I74.9 COMPOUNDED PRESCRIPTION SUCTION STYLE GRAB BAR FOR SHOWER WALL INSTALLATION DX M 06.9 I 74.9 albuterol HFA (PROAIR HFA) 90 mcg/actuation inhaler Inhale 2 Puffs as instructed every 4 hours as needed for Wheezing/Shortness of Breath. COUMADIN 1 mg tablet take 5mg daily except for Sunday, take 7.5 mg on Sunday or as directedDO NOT SUBSITUTE WITH GENERIC. QUEtiapine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 MACROBID (NITROFURANTOIN MONOHYD/*12/06/2010 2 - Rash Comments: states that broke out all over with rash last time was given this in September 2010 peroxide [Other] 07/14/2005 5 - Intolerance SULFA (SULFONAMIDE ANTIBIOTICS) 02/05/2013 2 - Rash TYLENOL (ACETAMINOPHEN) 03/17/2014 11 - Vomiting Comments: Nausea Date Reviewed: 09/05/2018 Reviewed by: Portia Bennett LPN - Fully Assessed 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 [1244] Prescriptions as of 09/16/2018 Sig: TOPIRAMATE 100 MG TABLET Take 100 mg by mouth twice da* TIZANIDINE 2 MG TABLET Take 1 tablet by mouth every * INSULIN GLARGINE (U-100) 100 * Inject 10 Units subcutaneousl* ROPINIROLE 1 MG TABLET Take 1 tablet by mouth four t* OMEPRAZOLE 40 MG CAPSULE,LALITO* Take 1 capsule by mouth once * CLONAZEPAM 1 MG TABLET Take 0.5-1 tablets by mouth d* ENOXAPARIN 40 MG/0.4 ML SUBCU* 40 mg subcutaneous every 12 h* ALPHA LIPOIC ACID 600 MG CAPS* Take 1 capsule by mouth twice* PEN NEEDLE, DIABETIC 31 GAUGE* Use with insulin pens 5 times* TOPIRAMATE 50 MG TABLET Take 1 tablet by mouth three * MELATONIN 1 MG TABLET Take 1 tablet by mouth daily * Patient not taking: Reported on 08/12/2018 INSULIN LISPRO (U-100) 100 UN* Inject 10 Units subcutaneousl* LORATADINE 10 MG TABLET Take 1 tablet by mouth once d* VERAPAMIL 40 MG TABLET Take 1 tablet by mouth three * ATORVASTATIN 10 MG TABLET Take 1 tablet by mouth daily * DICYCLOMINE 10 MG CAPSULE Take 1 capsule by mouth four * ONDANSETRON HCL 4 MG TABLET Take 1 tablet by mouth every * Patient not taking: Reported on 08/12/2018 LEVOTHYROXINE 100 MCG TABLET Take 1 tablet by mouth daily * BLOOD SUGAR DIAGNOSTIC STRIPS Test blood sugar 4 x daily. D* ADALIMUMAB 40 MG/0.8 ML SUBCU* Inject 40 mg subcutaneously o* NYSTATIN 100,000 UNIT/ML ORAL* 1 tsp swish and swallow until* FLUTICASONE 50 MCG/ACTUATION * Use 1-2 Sprays in each nostri* CETIRIZINE 10 MG CAPSULE Take by mouth daily at bedtim* FLUTICASONE 200 MCG-VILANTERO* Inhale 1 Inhalation as instru* ALBUTEROL SULFATE HFA 90 MCG/* Inhale 2 Puffs as instructed * BENZONATATE 200 MG CAPSULE Take 1 capsule by mouth three* Patient not taking: Reported on 08/12/2018 TRIAMCINOLONE ACETONIDE 0.1 %* Apply 1 application to affect* Patient not taking: Reported on 09/05/2018 PEN NEEDLE, DIABETIC 31 GAUGE* Inject 1 Each subcutaneously * LISINOPRIL 2.5 MG TABLET TAKE 1 TABLET BY MOUTH EVERY * Patient not taking: Reported on 08/12/2018 CHOLECALCIFEROL (VITAMIN D3) * Take 1 tablet by mouth once d* WARFARIN 7.5 MG TABLET Take 1 tablet by mouth daily * WARFARIN 5 MG TABLET Take 1 tablet by mouth once d* MULTIVITAMIN WITH MINERALS TA* Take 1 tablet by mouth three * VITAMIN E 400 UNIT CAPSULE Take 2 capsules by mouth once* SUCRALFATE 100 MG/ML ORAL BART* Take 10 mL by mouth four time* COMPOUNDED PRESCRIPTION SHOWER CHAIR WITH BACK D* COMPOUNDED PRESCRIPTION SUCTION STYLE GRAB BAR FOR SH* ALBUTEROL SULFATE HFA 90 MCG/* Inhale 2 Puffs as instructed * COUMADIN 1 MG TABLET take 5mg daily except for Sun* QUETIAPINE 25 MG TABLET Take 1 tablet by mouth twice * ALBUTEROL SULFATE 2.5 MG/3 ML* Use 3 mL via nebulizer every * BLOOD PRESSURE TEST KIT-WRIST* Use to check blood pressure o* HYDROXYCHLOROQUINE 200 MG TAB* Take 1 tablet by mouth once d* BUDESONIDE-FORMOTEROL HFA 160* Inhale 2 Puffs as instructed * Patient not taking: Reported on 08/12/2018 YASMINE-MAG ORAL Take by mouth. NYSTATIN 100,000 UNIT/GRAM TO* Apply 1 application to affect* ESCITALOPRAM 20 MG TABLET Take 1 tablet by mouth once d* COMPOUNDED PRESCRIPTION Morphine 15 mg per pump fille* LACTOBACILLUS ACIDOPHILUS 10 * Take 2 tablets by mouth daily* VITAMIN B COMPLEX TABLET Take 1 tablet by mouth once d* COMPOUNDED PRESCRIPTION Decrease BiPAP settings to 11* MISCELLANEOUS MEDICAL SUPPLY * CUSTOM JOBST KNEE HI KIRSTY* KETOCONAZOLE 2 % TOPICAL CREAM Apply 1 application to affect* OMEGA-3 FATTY ACIDS-VITAMIN E* Take 1 capsule by mouth three* Problem List As Of Date 09/16/2018 Noted Resolved OTHER LUNG DISEASE NEC [J98.4] Asthma [J45.909] OTHER UNSPEC SLEEP APNEA [G47.30] Dysmetabolic syndrome X [E88.81] 09/11/2011 Fibromyalgia [M79.7] Embolism and thrombosis (HCC) [I74.9] INVALID FOR*05/05/2018 GOITER NOS [E04.9] REFLUX ESOPHAGITIS [K21.0] NAUSEA ALONE [R11.0] ACUTE GASTRITIS W/O HEMORRHAGE [K29.00] INVALID FOR* CONSTIPATION NOS [K59.00] INVALID FOR* More... 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 Obstructive Sleep Apnea [G47.33] INVALID FOR* More... Hypothyroidism [E03.9] INVALID FOR* Exostosis of unspecified site [M89.8X9] INVALID FOR*11/27/2017 Other hammer toe (acquired) [M20.40] INVALID FOR*11/27/2017 Hx of hysterectomy [Z90.710] INVALID FOR* More... Allergic rhinitis [J30.9] More... 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] INVALID FOR* Environmental allergies [Z91.09] INVALID FOR*11/27/2017 Morbid obesity due to excess calories (HCC) [E6* Chronic kidney disease, stage III (moderate) [N*INVALID FOR*11/27/2017 Essential hypertension [I10] INVALID FOR* Nephrolithiasis [N20.0] INVALID FOR* Vitamin D deficiency [E55.9] INVALID FOR* Rheumatoid arthritis (HCC) [M06.9] INVALID FOR* Bipolar disorder, unspecified [F31.9] INVALID FOR* Alopecia, unspecified [L65.9] INVALID FOR*11/27/2017 Personal history of pulmonary embolism [Z86.711]INVALID FOR* Irritable bowel syndrome [K58.9] INVALID FOR* Neuropathy [G62.9] INVALID FOR* Incisional hernia [K43.2] INVALID FOR* Polycythemia, secondary [D75.1] INVALID FOR* Anticoagulated on Coumadin [Z51.81, Z79.01] INVALID FOR* STACY treated with BiPAP [G47.33] More... Type 2 DM with CKD stage 3 and hypertension (HC*INVALID FOR* Polypharmacy [Z79.899] INVALID FOR* Noncompliance with treatment [Z91.19] INVALID FOR* CKD (chronic kidney disease) stage 4, GFR 15-29*INVALID FOR*08/26/2017 Nonallergic rhinitis [J31.0] INVALID FOR* History of deep vein thrombosis [Z86.718] INVALID FOR* Hypoxemia [R09.02] INVALID FOR* More... Acute kidney injury superimposed on chronic kid*INVALID FOR* Metabolic encephalopathy [G93.41] INVALID FOR* Hyperkalemia [E87.5] INVALID FOR* Abdominal pannus [E65] INVALID FOR* Anxiety [F41.9] Encounter Status:Closed by OLGA SHETH on 09/27/18 PROGRESS Observed: 09/05/2018 Status: COMPLETED Source: [place] 5:15 PM [facility] REPOS[facility] HNO ID: [id number] Author: Trish (Khalif) Darrell Service: (none) Author Type: Nurse Specialist Type: Progress Notes Filed: 09/05/2018 5:25 PM Note Text: OUTPATIENT VISIT DATE September 05, 2018 OUTPATIENT VISIT TYPE ESTABLISHED PRIMARY CARE PHYSICIAN: Livia Scott MD CHIEF COMPLAINT: Patient presents with: Headache History of Present Illness: Debora Meyers is a 53 year old female who was last seen 08/12/2018 by Livia Scott MD. She has been seen in the past for ACTIVE PROBLEM LIST Other Diseases of Lung, Not Elsewhere Classified Asthma Unspecified Sleep Apnea Fibromyalgia Goiter, Unspecified Reflux Esophagitis Nausea Alone Acute Gastritis Without Mention of Hemorrhage Unspecified Constipation Mixed Hyperlipidemia Hypopotassemia Disorder of Hypothalamus (Hcc) Obstructive Sleep Apnea Hypothyroidism Hx of Hysterectomy Allergic Rhinitis Benign Neoplasm of Stomach Morbid Obesity Due to Excess Calories (Hcc) Essential Hypertension Nephrolithiasis Vitamin D Deficiency Rheumatoid Arthritis (Hcc) Bipolar Disorder, Unspecified (Hcc) Personal History of Pulmonary Embolism Irritable Bowel Syndrome Neuropathy (Hcc) Incisional Hernia Polycythemia, Secondary Anticoagulated On Coumadin Stacy Treated With Bipap Type 2 Dm With Ckd Stage 3 and Hypertension (Hcc) Polypharmacy Noncompliance With Treatment Nonallergic Rhinitis History of Deep Vein Thrombosis Hypoxemia Acute Kidney Injury Superimposed On Chronic Kidney Disease (Hcc) Metabolic Encephalopathy Hyperkalemia Abdominal Pannus Presents today for complaint of headache. She reports that her is living in her and since that time she's had a headache most days. She reports pain is sharp, wraps around her head includes her neck and upper shoulders. Describes as sharp occasionally throbbing at times nauseous. Reports prior history of migraine. She is without report of vision changes, no speech changes no focal neurological deficits or difficulty moving extremities. Does have some difficulty walking longer distances, this is chronic. She does have abnormality of the spine in the cervical thoracic level, this is chronic. She sees Dr. Wetzel for pain management for injections. She has an upcoming up with her counselor to help manage stress of separation from her . She reports spinal injection on August 22. She reports stopping Coumadin for the injection. Reports she was taking Lovenox after the injection. She reports she took this for about one week. She reports she did not resume warfarin until Lovenox was completed. No recent hospital or ED visits. No new medical problems or medications. Able to obtain medications. No problems with taking medications or note side effects. PAST MEDICAL HISTORY Diagnosis Date - Allergic rhinitis used to receive allergy shots from Dr. Brown - Alopecia, unspecified 08/29/2012 - Anticoagulated on Coumadin INR goal 3.0 to 4.0 - Asthma - Benign neoplasm of stomach - Bipolar disorder, unspecified 08/29/2012 - Diabetes mellitus type 2, controlled, without complications (HCC) 08/12/2007 In records from treatment after elevated sugars in 2001 during hospital stay; no longer on any meds and sugars have been fine--either normal or just in impaired fasting glucose level - Embolism and thrombosis (HCC) 08/14/2005 - Environmental allergies 01/17/2012 - Exostosis of unspecified site 09/27/2010 - Fibromyalgia - Goiter, unspecified - Hypothyroidism 10/28/2009 - Nausea alone - Obesity - STACY treated with BiPAP [facility] supplier - Other diseases of lung, not elsewhere classified - Other hammer toe (acquired) 09/27/2010 - RA (rheumatoid arthritis) (HCC) - 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 also elevated BMI . RECOMMENDATIONS are 1.weight loss.2. not seen significant sleep apnea however absense or REM sleep sleep apnea may be understimated.Extrinsic factors leading to excessive daytime somnolence such as mood disturbances and or medication effect may be a factor PAST SURGICAL HISTORY Procedure Laterality Date - COLONOSCOP W/ OR W/O BRSH SPEC 03-06-13 Colonoscopy - EGD W/O OR W/BRUSH/WASH 02/25/2007 EGD - EGD W/O OR W/BRUSH/WASH 11/03/2011 EGD - PAST SURGICAL HISTORY OF [place] except cervix was left in; complicated with wound infection; [facility] - PAST SURGICAL HISTORY OF fundoplication May 1991 - PAST SURGICAL HISTORY OF right foot surgery on achilles tendon - PAST SURGICAL HISTORY OF 09/16/13 bone spur removed from right foot - PAST SURGICAL HISTORY OF 08/2014 Intrathecal pump implant for chronic back pain ([facility]) - PULMONARY FUNCTION TEST 05/04/05 - REMOVAL ADENOIDS,PRIMARY,<12 Y/O Adenoidectomy - REMOVAL GALLBLADDER 1990 Cholecystectomy - REMOVAL OF TONSILS,<12 Y/O Tonsillectomy - TOTAL ABDOM HYSTERECTOMY 2008 polycystic ovaries - UVULECTOMY EXCISION OF UVULA 2004 FAMILY HISTORY Problem Relation Age of Onset - Adopted: Yes - None Mother - Alcohol/Drug Father - None Sister BOWEL PROBLEMS Social History Substance Use Topics - Smoking status: Never Smoker - Smokeless tobacco: Never Used Comment: Parents briefly smoked in childhood home. - Alcohol use No ALLERGIES: ALLERGIES Allergen Reactions - Environmental [Othe* Rash, Cough - Vitamin K Swelling - Cholestyramine Other: See Comments constipation - Ibuprofen Diarrhea - Macrobid [Nitrofura* Rash states that broke out all over with rash last time was given this in September 2010 - Peroxide [Other] Intolerance - Sulfa (Sulfonamide * Rash - Tylenol [Acetaminop* Vomiting Nausea MEDICATIONS topiramate (TOPAMAX) 100 mg tablet Take 100 mg by mouth twice daily. insulin glargine (LANTUS SOLOSTAR U-100 INSULIN) 100 unit/mL (3 mL) inpn Inject 10 Units subcutaneously twice daily. rOPINIRole (REQUIP) 1 mg tablet Take 1 tablet by mouth four times daily. As directed Omeprazole 40 mg capsule Take 1 capsule by mouth once daily. clonazePAM (KLONOPIN) 1 mg tablet Take 0.5-1 tablets by mouth daily at bedtime for 90 days. enoxaparin (LOVENOX) 40 mg/0.4 mL syrg 40 mg subcutaneous every 12 hours starting August 12 in the morning; take only the morning dose August 14; do not take August 15 (day of procedure); resume 40 mg every 12 hours starting evening of August 16 ; continue until INR therapeutic Alpha Lipoic Acid 600 mg cap Take 1 capsule by mouth twice daily. insulin needles, DISPOSABLE, (BD INSULIN PEN NEEDLE UF) 31 gauge x 5/16 ndle Use with insulin pens 5 times daily, or as directed, Dx: E11.22 insulin lispro (HUMALOG KWIKPEN INSULIN) 100 unit/mL inpn Inject 10 Units subcutaneously w MEALS. Three times daily loratadine (CLARITIN) 10 mg tablet Take 1 tablet by mouth once daily. verapamil (CALAN, ISOPTIN) 40 mg tablet Take 1 tablet by mouth three times daily. atorvastatin (LIPITOR) 10 mg tablet Take 1 tablet by mouth daily at bedtime. For cholesterol. dicyclomine (BENTYL) 10 mg capsule Take 1 capsule by mouth four times daily as needed (cramping pains and urgency with bowels). levothyroxine (LEVOXYL) 100 mcg tablet Take 1 tablet by mouth daily before breakfast. blood sugar diagnostic (TRUE METRIX GLUCOSE TEST STRIP) test strip Test blood sugar 4 x daily. Dx: E11.22. Insulin use: Yes adalimumab (HUMIRA) 40 mg/0.8 mL injection Inject 40 mg subcutaneously one time only. nystatin (MYCOSTATIN) 100,000 unit/mL suspension 1 tsp swish and swallow until gone, 4 times daily fluticasone (FLONASE) 50 mcg/actuation nasal spray Use 1-2 Sprays in each nostril once daily. Cetirizine (ZYRTEC) 10 mg cap Take by mouth daily at bedtime. fluticasone-vilanterol (BREO ELLIPTA) 200-25 mcg/dose inhaler Inhale 1 Inhalation as instructed once daily. albuterol HFA (PROVENTIL HFA, VENTOLIN HFA) 90 mcg/actuation inhaler Inhale 2 Puffs as instructed every 4 hours as needed (for cough, wheezing, chest tightness or shortness of breath. Use with spacer. ). insulin needles, DISPOSABLE, (UNIFINE PENTIPS) 31 gauge x 5/16 ndle Inject 1 Each subcutaneously four times daily. cholecalciferol (VITAMIN D3) 5,000 unit tab Take 1 tablet by mouth once daily. warfarin (COUMADIN) 7.5 mg tablet Take 1 tablet by mouth daily as directed. warfarin (COUMADIN) 5 mg tablet Take 1 tablet by mouth once daily. SHENG - 7.5mg , sun and 5mg all other days or as directed multivitamin with minerals (HAIR,SKIN AND NAILS) tablet Take 1 tablet by mouth three times daily. alpha tocopheryl acetate (VITAMIN E) 400 unit capsule Take 2 capsules by mouth once daily. sucralfate (CARAFATE) 100 mg/mL suspension Take 10 mL by mouth four times daily as needed. As directed (usually before meals and bedtime as needed) COMPOUNDED PRESCRIPTION SHOWER CHAIR WITH BACK DX M06.9 I74.9 COMPOUNDED PRESCRIPTION SUCTION STYLE GRAB BAR FOR SHOWER WALL INSTALLATION DX M 06.9 I 74.9 albuterol HFA (PROAIR HFA) 90 mcg/actuation inhaler Inhale 2 Puffs as instructed every 4 hours as needed for Wheezing/Shortness of Breath. COUMADIN 1 mg tablet take 5mg daily except for Sunday, take 7.5 mg on Sunday or as directedDO NOT SUBSITUTE WITH GENERIC. QUEtiapine (SEROQUEL) 25 mg tablet Take 1 tablet by mouth twice daily. albuterol (PROVENTIL) 2.5 mg /3 mL (0.083 %) nebulizer solution Use 3 mL via nebulizer every 6 hours as needed. Blood Pressure Test Kit-Wrist kit Use to check blood pressure once daily as directed DX:I10 hydroxychloroquine (PLAQUENIL) 200 mg tablet Take 1 tablet by mouth once daily. CALCIUM CARB/MAGNESIUM OX,CARB (YASMINE-MAG ORAL) Take by mouth. nystatin (MYCOSTATIN) cream Apply 1 application to affected area twice daily. As needed escitalopram oxalate (LEXAPRO) 20 mg tablet Take 1 tablet by mouth once daily. COMPOUNDED PRESCRIPTION Morphine 15 mg per pump filled every [address] Wetzel Lactobacillus acidophilus (PROBIOTIC) 10 billion cell cap Take 2 tablets by mouth daily at bedtime. vitamin b complex (B COMPLETE) tab Take 1 tablet by mouth once daily. COMPOUNDED PRESCRIPTION Decrease BiPAP settings to 11/5 cmH2O. Diagnosis G47.33 Miscellaneous Medical Supply [facility] CUSTOM JOBST KNEE HI COMPRESSION STOCKING 30-40MM/HG. Dispense 2 pair Diagnosis:(I87.2) Venous insufficiency of both lower extremities; (R60.9) Edema ketoconazole (NIZORAL) 2 % cream Apply 1 application to affected area once daily. as needed to corners of lips and other rash as directed [place]-3 Fatty Acids-Vitamin E (FISH OIL) 1,000 mg cap Take 1 capsule by mouth three times daily. tiZANidine (ZANAFLEX) 2 mg tablet Take 1 tablet by mouth every 8 hours as needed (muscle spasms, neck pain and headache). May make drowsy topiramate (TOPAMAX) 50 mg tablet Take 1 tablet by mouth three times daily. for headache melatonin 1 mg tablet Take 1 tablet by mouth daily at bedtime. ondansetron (ZOFRAN) 4 mg tablet Take 1 tablet by mouth every 8 hours as needed for Nausea/Vomiting. Benzonatate 200 mg capsule Take 1 capsule by mouth three times daily as needed. triamcinolone acetonide (KENALOG) 0.1 % cream Apply 1 application to affected area three times daily as needed (itchy rash/psoriasis on hands). Apply sparingly lisinopril 2.5 mg tablet TAKE 1 TABLET BY MOUTH EVERY DAY budesonide-formoterol (SYMBICORT) 160-4.5 mcg/actuation inhaler Inhale 2 Puffs as instructed twice daily. REVIEW OF SYSTEMS: GENERAL: Negative for: Weight loss or gain, Fever or Chills, Weakness and Sleep difficulties. Physical Examination: BP 128/86 Pulse 76 Resp 18 Wt 265 lb (120.2kg) BP w/Orthostatic Vitals Date and Time Orthostatic BP Orthostatic Pulse BP Pulse BP Position BP Site BP Cuff Size 09/05/18 1625 -- -- 128/86 76 Sitting Right Arm Regular Adult Peak Flow Date and Time PF Resp 09/05/18 1625 -- 18 General appearance: Well appearing, alert, in no acute distress, well-hydrated, well nourished. Skin: Skin color, texture, turgor normal, no suspicious rashes or lesions Head: Normocephalic, no masses, lesions, + tenderness or abnormalities PERRLA, EOMI Neck: Decreased range of motion, no adenopathy; thyroid symmetric, normal size, no bruits Back: + kyphosis Peripheral pulses: Normal Neuro: Gait normal. CN2-12 grossly intact Sensation grossly intact. Reviewed chart, outside records, tests I personally interviewed, confirmed and edited the above information if obtained by others. TESTING: Glucose (mg/dL) Date Value 06/28/2018 174 Potassium (mmol/L) Date Value 06/28/2018 4.1 Sodium (mmol/L) Date Value 06/28/2018 143 Chloride (mmol/L) Date Value 06/28/2018 107 CO2 (mmol/L) Date Value 06/28/2018 20 Creatinine (mg/dL) Date Value 06/28/2018 1.20 BUN (mg/dL) Date Value 06/28/2018 17 Anion Gap (mmol/L) Date Value 06/28/2018 16 Calcium (mg/dL) Date Value 06/28/2018 9.8 Glucose (mg/dL) Date Value 06/28/2018 174 Potassium (mmol/L) Date Value 06/28/2018 4.1 Sodium (mmol/L) Date Value 06/28/2018 143 Chloride (mmol/L) Date Value 06/28/2018 107 CO2 (mmol/L) Date Value 06/28/2018 20 Creatinine (mg/dL) Date Value 06/28/2018 1.20 BUN (mg/dL) Date Value 06/28/2018 17 Anion Gap (mmol/L) Date Value 06/28/2018 16 Calcium (mg/dL) Date Value 06/28/2018 9.8 Protein, Total (g/dL) Date Value 04/12/2018 7.0 Albumin (g/dL) Date Value 04/12/2018 4.2 Bilirubin, Total (mg/dL) Date Value 04/12/2018 0.3 Alkaline Phosphatase (U/L) Date Value 04/12/2018 92 AST (U/L) Date Value 04/12/2018 43 ALT (U/L) Date Value 04/12/2018 49 Hemoglobin (g/dL) Date Value 11/13/2017 14.4 Hematocrit (%) Date Value 11/13/2017 42.9 WBC (k/uL) Date Value 11/13/2017 5.35 Cholesterol, Total (mg/dL) Date Value 04/12/2018 284 HDL Cholesterol (mg/dL) Date Value 04/12/2018 52 LDL Cholesterol (mg/dL) Date Value 04/12/2018 163 Triglyceride (mg/dL) Date Value 04/12/2018 343 Hemoglobin A1C Date Value Ref Range Status 08/09/2018 5.8 (H) 4.3 - 5.6 % Final 04/12/2018 8.4 (H) 4.3 - 5.6 % Final 11/13/2017 8.4 (H) 4.3 - 5.6 % Final 07/28/2017 7.1 (H) 4.3 - 5.6 % Final Comment: [place] [employer] guidelines indicate that patients with HgbA1c in the range 5.7-6.4% are at increased risk for development of diabetes, and intervention by lifestyle modification may be beneficial. HgbA1c greater or equal to 6.5% is considered diagnostic of diabetes. 03/12/2017 9.6 (H) 4.3 - 5.6 % Final Comment: [place] [employer] guidelines indicate that patients with HgbA1c in the range 5.7-6.4% are at increased risk for development of diabetes, and intervention by lifestyle modification may be beneficial. HgbA1c greater or equal to 6.5% is considered diagnostic of diabetes. Ejection Fraction: No results found IMPRESSION: Ms. Meyers is a 53 year old Woman presents for headache persisting for the last couple of weeks, started when her asked for a divorce. She does have a history of chronic neck and back pain, prior history of migraine reported. After my examination and review of data, I make the following recommendations. PLAN AND RECOMMENDATIONS: 1. Difficulty walking - ICD9: 719.7, ICD10: R26.2 (primary diagnosis) - PARKING FOR HANDICAPPED - TIZANIDINE 2 MG TABLET 2. Cervicalgia - ICD9: 723.1, ICD10: M54.2 - TIZANIDINE 2 MG TABLET - CONSULT TO NEUROLOGY 3. Chronic tension-type headache, intractable - ICD9: 339.12, ICD10: G44.221 - CONSULT TO NEUROLOGY 4. Kyphosis of cervicothoracic region, unspecified kyphosis type - ICD9: 737.10, ICD10: M40.203 - CONSULT TO NEUROLOGY Advised: Can decrease the dose of Topamax if it is not helpful for headache at the higher dose. Try tizanidine for neck pain and headache to see if this helps. If feeling too drowsy with this medication, discontinue Consider physical therapy Make an appointment with headache specialist, neurology if not improving. Advised to go to ER if develops chest pain, shortness of breath, or severe worsening of symptoms. Discussed risks, benefits, alternatives, and potential side effects of medications. Ms. Meyers expressed understanding and agreed with the plan. Trish Ramírez APRN.HISTOLOGY TEACHER CNOV Observed: 09/05/2018 Status: COMPLETED Source: [facility] 4:20 PM [facility] Office Visit (INTMWS) DEBORA MEYERS ([id number]) 1965 F Date Time Provider Department 09/05/18 4:20 PM TRISH RAMÍREZ (KHALIF) INTMWS During your visit today, we recorded the following information about you: Pulse Respiration Blood pressure Weight 76/minute 18/minute 128/86 120.2 kg Trish Ramírez APRN.CNS 09/05/2018 5:11 PM Addendum Can decrease the dose of Topamax is not helpful for headache. Try tizanidine for neck pain and headache to see if this helps. If feeling too drowsy with this medication, discontinue Consider physical therapy Make an appointment with headache specialist, neurology Trish Ramírez APRN.CNS 09/05/2018 5:25 PM Addendum OUTPATIENT VISIT DATE September 05, 2018 OUTPATIENT VISIT TYPE ESTABLISHED PRIMARY CARE PHYSICIAN: Livia Scott MD CHIEF COMPLAINT: Patient presents with: Headache History of Present Illness: Debora Meyers is a 53 year old female who was last seen 08/12/2018 by Livia Scott MD. She has been seen in the past for ACTIVE PROBLEM LIST Other Diseases of Lung, Not Elsewhere Classified Asthma Unspecified Sleep Apnea Fibromyalgia Goiter, Unspecified Reflux Esophagitis Nausea Alone Acute Gastritis Without Mention of Hemorrhage Unspecified Constipation Mixed Hyperlipidemia Hypopotassemia Disorder of Hypothalamus ([facility]) Obstructive Sleep Apnea Hypothyroidism Hx of Hysterectomy Allergic Rhinitis Benign Neoplasm of Stomach Morbid Obesity Due to Excess Calories ([facility]) Essential Hypertension Nephrolithiasis Vitamin D Deficiency Rheumatoid Arthritis (Hcc) Bipolar Disorder, Unspecified (Hcc) Personal History of Pulmonary Embolism Irritable Bowel Syndrome Neuropathy ([facility]) Incisional Hernia Polycythemia, Secondary Anticoagulated On Coumadin Stacy Treated With Bipap Type 2 Dm With Ckd Stage 3 and Hypertension ([facility]cc) Polypharmacy Noncompliance With Treatment Nonallergic Rhinitis History of Deep Vein Thrombosis Hypoxemia Acute Kidney Injury Superimposed On Chronic Kidney Disease ([facility]cc) Metabolic Encephalopathy Hyperkalemia Abdominal Pannus Presents today for complaint of headache. She reports that her is living in her and since that time she's had a headache most days. She reports pain is sharp, wraps around her head includes her neck and upper shoulders. Describes as sharp occasionally throbbing at times nauseous. Reports prior history of migraine. She is without report of vision changes, no speech changes no focal neurological deficits or difficulty moving extremities. Does have some difficulty walking longer distances, this is chronic. She does have abnormality of the spine in the cervical thoracic level, this is chronic. She sees Dr. Wetzel for pain management for injections. She has an upcoming up with her counselor to help manage stress of separation from her . She reports spinal injection on August 22. She reports stopping Coumadin for the injection. Reports she was taking Lovenox after the injection. She reports she took this for about one week. She reports she did not resume warfarin until Lovenox was completed. No recent hospital or ED visits. No new medical problems or medications. Able to obtain medications. No problems with taking medications or note side effects. PAST MEDICAL HISTORY Diagnosis Date - Allergic rhinitis used to receive allergy shots from Dr. Brown - Alopecia, unspecified 08/29/2012 - Anticoagulated on Coumadin INR goal 3.0 to 4.0 - Asthma - Benign neoplasm of stomach - Bipolar disorder, unspecified 08/29/2012 - Diabetes mellitus type 2, controlled, without complications (HCC) 08/12/2007 In records from treatment after elevated sugars in 2001 during hospital stay; no longer on any meds and sugars have been fine--either normal or just in impaired fasting glucose level - Embolism and thrombosis (HCC) 08/14/2005 - Environmental allergies 01/17/2012 - Exostosis of unspecified site 09/27/2010 - Fibromyalgia - Goiter, unspecified - Hypothyroidism 10/28/2009 - Nausea alone - Obesity - STACY treated with BiPAP [facility] supplier - Other diseases of lung, not elsewhere classified - Other hammer toe (acquired) 09/27/2010 - RA (rheumatoid arthritis) (HCC) - 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 also elevated BMI . RECOMMENDATIONS are 1.weight loss.2. not seen significant sleep apnea however absense or REM sleep sleep apnea may be understimated.Extrinsic factors leading to excessive daytime somnolence such as mood disturbances and or medication effect may be a factor PAST SURGICAL HISTORY Procedure Laterality Date - COLONOSCOP W/ OR W/O BRSH SPEC 03-06-13 Colonoscopy - EGD W/O OR W/BRUSH/WASH 02/25/2007 EGD - EGD W/O OR W/BRUSH/WASH 11/03/2011 EGD - PAST SURGICAL HISTORY OF [place] except cervix was left in; complicated with wound infection; [facility] - PAST SURGICAL HISTORY OF fundoplication May 1991 - PAST SURGICAL HISTORY OF right foot surgery on achilles tendon - PAST SURGICAL HISTORY OF 09/16/13 bone spur removed from right foot - PAST SURGICAL HISTORY OF 08/2014 Intrathecal pump implant for chronic back pain ([facility]) - PULMONARY FUNCTION TEST 05/04/05 - REMOVAL ADENOIDS,PRIMARY,<12 Y/O Adenoidectomy - REMOVAL GALLBLADDER 1990 Cholecystectomy - REMOVAL OF TONSILS,<12 Y/O Tonsillectomy - TOTAL ABDOM HYSTERECTOMY 2008 polycystic ovaries - UVULECTOMY EXCISION OF UVULA 2004 FAMILY HISTORY Problem Relation Age of Onset - Adopted: Yes - None Mother - Alcohol/Drug Father - None Sister BOWEL PROBLEMS Social History Substance Use Topics - Smoking status: Never Smoker - Smokeless tobacco: Never Used Comment: Parents briefly smoked in childhood home. - Alcohol use No ALLERGIES: ALLERGIES Allergen Reactions - Environmental [Othe* Rash, Cough - Vitamin K Swelling - Cholestyramine Other: See Comments constipation - Ibuprofen Diarrhea - Macrobid [Nitrofura* Rash states that broke out all over with rash last time was given this in September 2010 - Peroxide [Other] Intolerance - Sulfa (Sulfonamide * Rash - Tylenol [Acetaminop* Vomiting Nausea MEDICATIONS topiramate (TOPAMAX) 100 mg tablet Take 100 mg by mouth twice daily. insulin glargine (LANTUS SOLOSTAR U-100 INSULIN) 100 unit/mL (3 mL) inpn Inject 10 Units subcutaneously twice daily. rOPINIRole (REQUIP) 1 mg tablet Take 1 tablet by mouth four times daily. As directed Omeprazole 40 mg capsule Take 1 capsule by mouth once daily. clonazePAM (KLONOPIN) 1 mg tablet Take 0.5-1 tablets by mouth daily at bedtime for 90 days. enoxaparin (LOVENOX) 40 mg/0.4 mL syrg 40 mg subcutaneous every 12 hours starting August 12 in the morning; take only the morning dose August 14; do not take August 15 (day of procedure); resume 40 mg every 12 hours starting evening of August 16 ; continue until INR therapeutic Alpha Lipoic Acid 600 mg cap Take 1 capsule by mouth twice daily. insulin needles, DISPOSABLE, (BD INSULIN PEN NEEDLE UF) 31 gauge x 5/16 ndle Use with insulin pens 5 times daily, or as directed, Dx: E11.22 insulin lispro (HUMALOG KWIKPEN INSULIN) 100 unit/mL inpn Inject 10 Units subcutaneously w MEALS. Three times daily loratadine (CLARITIN) 10 mg tablet Take 1 tablet by mouth once daily. verapamil (CALAN, ISOPTIN) 40 mg tablet Take 1 tablet by mouth three times daily. atorvastatin (LIPITOR) 10 mg tablet Take 1 tablet by mouth daily at bedtime. For cholesterol. dicyclomine (BENTYL) 10 mg capsule Take 1 capsule by mouth four times daily as needed (cramping pains and urgency with bowels). levothyroxine (LEVOXYL) 100 mcg tablet Take 1 tablet by mouth daily before breakfast. blood sugar diagnostic (TRUE METRIX GLUCOSE TEST STRIP) test strip Test blood sugar 4 x daily. Dx: E11.22. Insulin use: Yes adalimumab (HUMIRA) 40 mg/0.8 mL injection Inject 40 mg subcutaneously one time only. nystatin (MYCOSTATIN) 100,000 unit/mL suspension 1 tsp swish and swallow until gone, 4 times daily fluticasone (FLONASE) 50 mcg/actuation nasal spray Use 1-2 Sprays in each nostril once daily. Cetirizine (ZYRTEC) 10 mg cap Take by mouth daily at bedtime. fluticasone-vilanterol (BREO ELLIPTA) 200-25 mcg/dose inhaler Inhale 1 Inhalation as instructed once daily. albuterol HFA (PROVENTIL HFA, VENTOLIN HFA) 90 mcg/actuation inhaler Inhale 2 Puffs as instructed every 4 hours as needed (for cough, wheezing, chest tightness or shortness of breath. Use with spacer. ). insulin needles, DISPOSABLE, (UNIFINE PENTIPS) 31 gauge x 5/16 ndle Inject 1 Each subcutaneously four times daily. cholecalciferol (VITAMIN D3) 5,000 unit tab Take 1 tablet by mouth once daily. warfarin (COUMADIN) 7.5 mg tablet Take 1 tablet by mouth daily as directed. warfarin (COUMADIN) 5 mg tablet Take 1 tablet by mouth once daily. SHENG - 7.5mg , sun and 5mg all other days or as directed multivitamin with minerals (HAIR,SKIN AND NAILS) tablet Take 1 tablet by mouth three times daily. alpha tocopheryl acetate (VITAMIN E) 400 unit capsule Take 2 capsules by mouth once daily. sucralfate (CARAFATE) 100 mg/mL suspension Take 10 mL by mouth four times daily as needed. As directed (usually before meals and bedtime as needed) COMPOUNDED PRESCRIPTION SHOWER CHAIR WITH BACK DX M06.9 I74.9 COMPOUNDED PRESCRIPTION SUCTION STYLE GRAB BAR FOR SHOWER WALL INSTALLATION DX M 06.9 I 74.9 albuterol HFA (PROAIR HFA) 90 mcg/actuation inhaler Inhale 2 Puffs as instructed every 4 hours as needed for Wheezing/Shortness of Breath. COUMADIN 1 mg tablet take 5mg daily except for Sunday, take 7.5 mg on Sunday or as directedDO NOT SUBSITUTE WITH GENERIC. QUEtiapine (SEROQUEL) 25 mg tablet Take 1 tablet by mouth twice daily. albuterol (PROVENTIL) 2.5 mg /3 mL (0.083 %) nebulizer solution Use 3 mL via nebulizer every 6 hours as needed. Blood Pressure Test Kit-Wrist kit Use to check blood pressure once daily as directed DX:I10 hydroxychloroquine (PLAQUENIL) 200 mg tablet Take 1 tablet by mouth once daily. CALCIUM CARB/MAGNESIUM OX,CARB (YASMINE-MAG ORAL) Take by mouth. nystatin (MYCOSTATIN) cream Apply 1 application to affected area twice daily. As needed escitalopram oxalate (LEXAPRO) 20 mg tablet Take 1 tablet by mouth once daily. COMPOUNDED PRESCRIPTION Morphine 15 mg per pump filled every [address] Wetzel Lactobacillus acidophilus (PROBIOTIC) 10 billion cell cap Take 2 tablets by mouth daily at bedtime. vitamin b complex (B COMPLETE) tab Take 1 tablet by mouth once daily. COMPOUNDED PRESCRIPTION Decrease BiPAP settings to 11/5 cmH2O. Diagnosis G47.33 Miscellaneous Medical Supply [facility] CUSTOM JOBST KNEE HI COMPRESSION STOCKING 30-40MM/HG. Dispense 2 pair Diagnosis:(I87.2) Venous insufficiency of both lower extremities; (R60.9) Edema ketoconazole (NIZORAL) 2 % cream Apply 1 application to affected area once daily. as needed to corners of lips and other rash as directed [place]-3 Fatty Acids-Vitamin E (FISH OIL) 1,000 mg cap Take 1 capsule by mouth three times daily. tiZANidine (ZANAFLEX) 2 mg tablet Take 1 tablet by mouth every 8 hours as needed (muscle spasms, neck pain and headache). May make drowsy topiramate (TOPAMAX) 50 mg tablet Take 1 tablet by mouth three times daily. for headache melatonin 1 mg tablet Take 1 tablet by mouth daily at bedtime. ondansetron (ZOFRAN) 4 mg tablet Take 1 tablet by mouth every 8 hours as needed for Nausea/Vomiting. Benzonatate 200 mg capsule Take 1 capsule by mouth three times daily as needed. triamcinolone acetonide (KENALOG) 0.1 % cream Apply 1 application to affected area three times daily as needed (itchy rash/psoriasis on hands). Apply sparingly lisinopril 2.5 mg tablet TAKE 1 TABLET BY MOUTH EVERY DAY budesonide-formoterol (SYMBICORT) 160-4.5 mcg/actuation inhaler Inhale 2 Puffs as instructed twice daily. REVIEW OF SYSTEMS: GENERAL: Negative for: Weight loss or gain, Fever or Chills, Weakness and Sleep difficulties. Physical Examination: BP 128/86 Pulse 76 Resp 18 Wt 265 lb (120.2kg) BP w/Orthostatic Vitals Date and Time Orthostatic BP Orthostatic Pulse BP Pulse BP Position BP Site BP Cuff Size 09/05/181624 -- -- 128/86 76 Sitting Right Arm Regular Adult Peak Flow Date and Time PF Resp 09/05/181624 -- 18 General appearance: Well appearing, alert, in no acute distress, well-hydrated, well nourished. Skin: Skin color, texture, turgor normal, no suspicious rashes or lesions Head: Normocephalic, no masses, lesions, + tenderness or abnormalities PERRLA, EOMI Neck: Decreased range of motion, no adenopathy; thyroid symmetric, normal size, no bruits Back: + kyphosis Peripheral pulses: Normal Neuro: Gait normal. CN2-12 grossly intact Sensation grossly intact. Reviewed chart, outside records, tests I personally interviewed, confirmed and edited the above information if obtained by others. TESTING: Glucose (mg/dL) Date Value 06/28/2018 174 Potassium (mmol/L) Date Value 06/28/2018 4.1 Sodium (mmol/L) Date Value 06/28/2018 143 Chloride (mmol/L) Date Value 06/28/2018 107 CO2 (mmol/L) Date Value 06/28/2018 20 Creatinine (mg/dL) Date Value 06/28/2018 1.20 BUN (mg/dL) Date Value 06/28/2018 17 Anion Gap (mmol/L) Date Value 06/28/2018 16 Calcium (mg/dL) Date Value 06/28/2018 9.8 Glucose (mg/dL) Date Value 06/28/2018 174 Potassium (mmol/L) Date Value 06/28/2018 4.1 Sodium (mmol/L) Date Value 06/28/2018 143 Chloride (mmol/L) Date Value 06/28/2018 107 CO2 (mmol/L) Date Value 06/28/2018 20 Creatinine (mg/dL) Date Value 06/28/2018 1.20 BUN (mg/dL) Date Value 06/28/2018 17 Anion Gap (mmol/L) Date Value 06/28/2018 16 Calcium (mg/dL) Date Value 06/28/2018 9.8 Protein, Total (g/dL) Date Value 04/12/2018 7.0 Albumin (g/dL) Date Value 04/12/2018 4.2 Bilirubin, Total (mg/dL) Date Value 04/12/2018 0.3 Alkaline Phosphatase (U/L) Date Value 04/12/2018 92 AST (U/L) Date Value 04/12/2018 43 ALT (U/L) Date Value 04/12/2018 49 Hemoglobin (g/dL) Date Value 11/13/2017 14.4 Hematocrit (%) Date Value 11/13/2017 42.9 WBC (k/uL) Date Value 11/13/2017 5.35 Cholesterol, Total (mg/dL) Date Value 04/12/2018 284 HDL Cholesterol (mg/dL) Date Value 04/12/2018 52 LDL Cholesterol (mg/dL) Date Value 04/12/2018 163 Triglyceride (mg/dL) Date Value 04/12/2018 343 Hemoglobin A1C Date Value Ref Range Status 08/09/2018 5.8 (H) 4.3 - 5.6 % Final 04/12/2018 8.4 (H) 4.3 - 5.6 % Final 11/13/2017 8.4 (H) 4.3 - 5.6 % Final 07/28/2017 7.1 (H) 4.3 - 5.6 % Final Comment: [place] [employer] guidelines indicate that patients with HgbA1c in the range 5.7-6.4% are at increased risk for development of diabetes, and intervention by lifestyle modification may be beneficial. HgbA1c greater or equal to 6.5% is considered diagnostic of diabetes. 03/12/2017 9.6 (H) 4.3 - 5.6 % Final Comment: [place] [employer] guidelines indicate that patients with HgbA1c in the range 5.7-6.4% are at increased risk for development of diabetes, and intervention by lifestyle modification may be beneficial. HgbA1c greater or equal to 6.5% is considered diagnostic of diabetes. Ejection Fraction: No results found IMPRESSION: Ms. Meyers is a 53 year old Woman presents for headache persisting for the last couple of weeks, started when her asked for a divorce. She does have a history of chronic neck and back pain, prior history of migraine reported. After my examination and review of data, I make the following recommendations. PLAN AND RECOMMENDATIONS: 1. Difficulty walking - ICD9: 719.7, ICD10: R26.2 (primary diagnosis) - PARKING FOR HANDICAPPED - TIZANIDINE 2 MG TABLET 2. Cervicalgia - ICD9: 723.1, ICD10: M54.2 - TIZANIDINE 2 MG TABLET - CONSULT TO NEUROLOGY 3. Chronic tension-type headache, intractable - ICD9: 339.12, ICD10: G44.221 - CONSULT TO NEUROLOGY 4. Kyphosis of cervicothoracic region, unspecified kyphosis type - ICD9: 737.10, ICD10: M40.203 - CONSULT TO NEUROLOGY Advised: Can decrease the dose of Topamax if it is not helpful for headache at the higher dose. Try tizanidine for neck pain and headache to see if this helps. If feeling too drowsy with this medication, discontinue Consider physical therapy Make an appointment with headache specialist, neurology if not improving. Advised to go to ER if develops chest pain, shortness of breath, or severe worsening of symptoms. Discussed risks, benefits, alternatives, and potential side effects of medications. Ms. Meyers expressed understanding and agreed with the plan. Trish Ramírez APRN.HISTOLOGY TEACHER Referring Provider: SELF [[id number]] Allergies As of Date: 09/05/2018 Noted Allergy Reaction environmental [Other] 07/14/2005 2 - Rash 3 - Cough VITAMIN K 07/14/2005 7 - Swelling CHOLESTYRAMINE 03/31/2013 14 - Other: See Comments Comments: constipation IBUPROFEN 06/29/2009 6 - Diarrhea MACROBID (NITROFURANTOIN MONOHYD/*12/06/2010 2 - Rash Comments: states that broke out all over with rash last time was given this in September 2010 peroxide [Other] 07/14/2005 5 - Intolerance SULFA (SULFONAMIDE ANTIBIOTICS) 02/05/2013 2 - Rash TYLENOL (ACETAMINOPHEN) 03/17/2014 11 - Vomiting Comments: Nausea Date Reviewed: 09/05/2018 Reviewed by: Portia Bennett LPN - Fully Assessed Reason for Visit: Headache [52] Primary Visit Diagnosis:Difficulty walking [R26.2] Other Visit Diagnoses:Cervicalgia [M54.2] Chronic tension-type headache, intractable [G44.221] Kyphosis of cervicothoracic region, unspecified kyphosis type [M40.203] Order(s):PARKING FOR HANDICAPPED [0531448] Order #: [id number] tiZANidine (ZANAFLEX) 2 mg tabletTake 1 tablet by mouth every 8 hours as needed (muscle spasms, neck pain and headache). May make drowsyDisp: 30 tabletRfl: 2 CONSULT TO NEUROLOGY [9019] Order #: [id number]: 1 Prescriptions as of 09/05/2018 Sig: TOPIRAMATE 100 MG TABLET Take 100 mg by mouth twice da* INSULIN GLARGINE (U-100) 100 * Inject 10 Units subcutaneousl* ROPINIROLE 1 MG TABLET Take 1 tablet by mouth four t* OMEPRAZOLE 40 MG CAPSULE,LALITO* Take 1 capsule by mouth once * CLONAZEPAM 1 MG TABLET Take 0.5-1 tablets by mouth d* ENOXAPARIN 40 MG/0.4 ML SUBCU* 40 mg subcutaneous every 12 h* ALPHA LIPOIC ACID 600 MG CAPS* Take 1 capsule by mouth twice* PEN NEEDLE, DIABETIC 31 GAUGE* Use with insulin pens 5 times* INSULIN LISPRO (U-100) 100 UN* Inject 10 Units subcutaneousl* LORATADINE 10 MG TABLET Take 1 tablet by mouth once d* VERAPAMIL 40 MG TABLET Take 1 tablet by mouth three * ATORVASTATIN 10 MG TABLET Take 1 tablet by mouth daily * DICYCLOMINE 10 MG CAPSULE Take 1 capsule by mouth four * LEVOTHYROXINE 100 MCG TABLET Take 1 tablet by mouth daily * BLOOD SUGAR DIAGNOSTIC STRIPS Test blood sugar 4 x daily. D* ADALIMUMAB 40 MG/0.8 ML SUBCU* Inject 40 mg subcutaneously o* NYSTATIN 100,000 UNIT/ML ORAL* 1 tsp swish and swallow until* FLUTICASONE 50 MCG/ACTUATION * Use 1-2 Sprays in each nostri* CETIRIZINE 10 MG CAPSULE Take by mouth daily at bedtim* FLUTICASONE 200 MCG-VILANTERO* Inhale 1 Inhalation as instru* ALBUTEROL SULFATE HFA 90 MCG/* Inhale 2 Puffs as instructed * PEN NEEDLE, DIABETIC 31 GAUGE* Inject 1 Each subcutaneously * CHOLECALCIFEROL (VITAMIN D3) * Take 1 tablet by mouth once d* WARFARIN 7.5 MG TABLET Take 1 tablet by mouth daily * WARFARIN 5 MG TABLET Take 1 tablet by mouth once d* MULTIVITAMIN WITH MINERALS TA* Take 1 tablet by mouth three * VITAMIN E 400 UNIT CAPSULE Take 2 capsules by mouth once* SUCRALFATE 100 MG/ML ORAL BART* Take 10 mL by mouth four time* COMPOUNDED PRESCRIPTION SHOWER CHAIR WITH BACK D* COMPOUNDED PRESCRIPTION SUCTION STYLE GRAB BAR FOR SH* ALBUTEROL SULFATE HFA 90 MCG/* Inhale 2 Puffs as instructed * COUMADIN 1 MG TABLET take 5mg daily except for Sun* QUETIAPINE 25 MG TABLET Take 1 tablet by mouth twice * ALBUTEROL SULFATE 2.5 MG/3 ML* Use 3 mL via nebulizer every * BLOOD PRESSURE TEST KIT-WRIST* Use to check blood pressure o* HYDROXYCHLOROQUINE 200 MG TAB* Take 1 tablet by mouth once d* YASMINE-MAG ORAL Take by mouth. NYSTATIN 100,000 UNIT/GRAM TO* Apply 1 application to affect* ESCITALOPRAM 20 MG TABLET Take 1 tablet by mouth once d* COMPOUNDED PRESCRIPTION Morphine 15 mg per pump fille* LACTOBACILLUS ACIDOPHILUS 10 * Take 2 tablets by mouth daily* VITAMIN B COMPLEX TABLET Take 1 tablet by mouth once d* COMPOUNDED PRESCRIPTION Decrease BiPAP settings to 11* MISCELLANEOUS MEDICAL SUPPLY * CUSTOM JOBST KNEE HI KIRSTY* KETOCONAZOLE 2 % TOPICAL CREAM Apply 1 application to affect* OMEGA-3 FATTY ACIDS-VITAMIN E* Take 1 capsule by mouth three* TIZANIDINE 2 MG TABLET Take 1 tablet by mouth every * TOPIRAMATE 50 MG TABLET Take 1 tablet by mouth three * MELATONIN 1 MG TABLET Take 1 tablet by mouth daily * Patient not taking: Reported on 08/12/2018 ONDANSETRON HCL 4 MG TABLET Take 1 tablet by mouth every * Patient not taking: Reported on 08/12/2018 BENZONATATE 200 MG CAPSULE Take 1 capsule by mouth three* Patient not taking: Reported on 08/12/2018 TRIAMCINOLONE ACETONIDE 0.1 %* Apply 1 application to affect* Patient not taking: Reported on 09/05/2018 LISINOPRIL 2.5 MG TABLET TAKE 1 TABLET BY MOUTH EVERY * Patient not taking: Reported on 08/12/2018 BUDESONIDE-FORMOTEROL HFA 160* Inhale 2 Puffs as instructed * Patient not taking: Reported on 08/12/2018 Problem List As Of Date 09/05/2018 Noted Resolved OTHER LUNG DISEASE NEC [J98.4] Asthma [J45.909] OTHER UNSPEC SLEEP APNEA [G47.30] Dysmetabolic syndrome X [E88.81] 09/11/2011 Fibromyalgia [[id number]] Embolism and thrombosis (HCC) [I74.9] INVALID FOR*05/05/2018 GOITER NOS [E04.9] REFLUX ESOPHAGITIS [K21.0] NAUSEA ALONE [R11.0] ACUTE GASTRITIS W/O HEMORRHAGE [K29.00] INVALID FOR* CONSTIPATION NOS [K59.00] INVALID FOR* More... 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 Obstructive Sleep Apnea [G47.33] INVALID FOR* More... Hypothyroidism [E03.9] INVALID FOR* Exostosis of unspecified site [M89.8X9] INVALID FOR*11/27/2017 Other hammer toe (acquired) [M20.40] INVALID FOR*11/27/2017 Hx of hysterectomy [Z90.710] INVALID FOR* More... Allergic rhinitis [J30.9] More... 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] INVALID FOR* Environmental allergies [Z91.09] INVALID FOR*11/27/2017 Morbid obesity due to excess calories (HCC) [E6* Chronic kidney disease, stage III (moderate) [N*INVALID FOR*11/27/2017 Essential hypertension [I10] INVALID FOR* Nephrolithiasis [N20.0] INVALID FOR* Vitamin D deficiency [E55.9] INVALID FOR* Rheumatoid arthritis (HCC) [M06.9] INVALID FOR* Bipolar disorder, unspecified [F31.9] INVALID FOR* Alopecia, unspecified [L65.9] INVALID FOR*11/27/2017 Personal history of pulmonary embolism [Z86.711]INVALID FOR* Irritable bowel syndrome [K58.9] INVALID FOR* Neuropathy [G62.9] INVALID FOR* Incisional hernia [K43.2] INVALID FOR* Polycythemia, secondary [D75.1] INVALID FOR* Anticoagulated on Coumadin [Z51.81, Z79.01] INVALID FOR* STACY treated with BiPAP [G47.33] More... Type 2 DM with CKD stage 3 and hypertension (HC*INVALID FOR* Polypharmacy [Z79.899] INVALID FOR* Noncompliance with treatment [Z91.19] INVALID FOR* CKD (chronic kidney disease) stage 4, GFR 15-29*INVALID FOR*08/26/2017 Nonallergic rhinitis [J31.0] INVALID FOR* History of deep vein thrombosis [Z86.718] INVALID FOR* Hypoxemia [R09.02] INVALID FOR* More... Acute kidney injury superimposed on chronic kid*INVALID FOR* Metabolic encephalopathy [G93.41] INVALID FOR* Hyperkalemia [E87.5] INVALID FOR* Abdominal pannus [E65] INVALID FOR* Other instructions from your clinician: Can decrease the dose of Topamax is not helpful for headache. Try tizanidine for neck pain and headache to see if this helps. If feeling too drowsy with this medication, discontinue Consider physical therapy Make an appointment with headache specialist, neurology Prescriptions ordered this encounter Disp Refills Start End TIZANIDINE 2 MG TABLET 30 t* 2 09/05/2018 Route: ORAL Sig: Take 1 tablet by mouth every 8 hours as needed (muscle spasms, neck pain and headache). May make drowsy Encounter Status:Closed by TRISH JACKSON on 09/05/18 PROGRESS Observed: 08/28/2018 Status: COMPLETED Source: [place] 12:21 PM [facility] REPOSITORY HNO ID: [id number] Author: Sheeba King RN Service: (none) Author Type: (none) Type: Progress Notes Filed: 08/28/2018 12:22 PM Note Text: per written order by dr scott patient is to take 7.5mg daily PATIENT NOTIFIED OF INFORMATION PROGRESS Observed: 08/28/2018 Status: COMPLETED Source: [place] 12:13 PM [facility] REPOSITORY HNO ID: [id number] Author: Leana Byrne (Sw) Service: (none) Author Type: Production Painter Type: Progress Notes Filed: 08/28/2018 12:16 PM Note Text: Sw met with patient and discussed different housing, prescription, and legal resources. Patient reports that she is getting . She has called [employer] for help with legal feels for divorce. Discussed People to People for help with prescriptions. Patient spouse still at home and so his income counts. Once patient will sign up for Medicaid and Food Assistance. Patient reports receiving $400 a month. Damon also discussed 180 housing case management program. Damon provided patient with [facility] resource guide for social service agency assistance. Patient will let Sw know further needs. PROGRESS Observed: 08/28/2018 Status: COMPLETED Source: [place] 12:05 PM [facility] REPOSITORY HNO ID: [id number] Author: Sheeba King RN Service: (none) Author Type: (none) Type: Progress Notes Filed: 08/28/2018 12:07 PM Note Text: patient had inr completed at [facility] patients inr is 0.9 (patients inr range is 3.0-4.0) patient is currently taking 7.5mg Tues,Thurs,Sat and 5mg all other days patients last dose change was on 06/18/18 due to a low level of 2.8 (dose at that time was7.5mg Tues,Thurs and 5mg all other days) patient has had no changes in medication and no missed doses and no change in diet Advised patient that they would be contacted regarding medication dose and when to follow up after information is reviewed by provider. After provider review please contact the patient with information and schedule follow up appointment with coumadin clinic. FYI - patient has been scheduled for a 1 week follow up inr on 09/03/18 CNSW Observed: 08/28/2018 Status: COMPLETED Source: [place] 12:00 AM [facility] REPOSITORY Social Work (CHRISTENT) DEBORA MEYERS ([id number]) 1965 F Date Time Provider Department 08/28/18 LEANA BYRNE (DAMON) SHANNAN During your visit today, we recorded the following information about you: Leana Byrne, GLIDING PILOT INSTRUCTOR-RESEARCH ELECTRICIAN 08/28/2018 12:16 PM Signed Damon met with patient and discussed different housing, prescription, and legal resources. Patient reports that she is getting . She has called [employer] for help with legal feels for divorce. Discussed People to People for help with prescriptions. Patient spouse still at home and so his income counts. Once patient will sign up for Medicaid and Food Assistance. Patient reports receiving $400 a month. Damon also discussed 180 housing case management program. Damon provided patient with [facility] resource guide for social service agency assistance. Patient will let Damon know further needs. Allergies As of Date: 08/28/2018 Noted Allergy Reaction environmental [Other] 07/14/2005 2 - Rash 3 - Cough VITAMIN K 07/14/2005 7 - Swelling CHOLESTYRAMINE 03/31/2013 14 - Other: See Comments Comments: constipation IBUPROFEN 06/29/2009 6 - Diarrhea MACROBID (NITROFURANTOIN MONOHYD/*12/06/2010 2 - Rash Comments: states that broke out all over with rash last time was given this in September 2010 peroxide [Other] 07/14/2005 5 - Intolerance SULFA (SULFONAMIDE ANTIBIOTICS) 02/05/2013 2 - Rash TYLENOL (ACETAMINOPHEN) 03/17/2014 11 - Vomiting Comments: Nausea Date Reviewed: 08/12/2018 Reviewed by: Venecia Avila LPN - Fully Assessed Prescriptions as of 08/28/2018 Sig: OMEPRAZOLE 40 MG CAPSULE,LALITO* Take 1 capsule by mouth once * CLONAZEPAM 1 MG TABLET Take 0.5-1 tablets by mouth d* ENOXAPARIN 40 MG/0.4 ML SUBCU* 40 mg subcutaneous every 12 h* ALPHA LIPOIC ACID 600 MG CAPS* Take 1 capsule by mouth twice* PEN NEEDLE, DIABETIC 31 GAUGE* Use with insulin pens 5 times* TOPIRAMATE 50 MG TABLET Take 1 tablet by mouth three * ROPINIROLE 1 MG TABLET Take 1 tablet by mouth four t* MELATONIN 1 MG TABLET Take 1 tablet by mouth daily * Patient not taking: Reported on 08/12/2018 INSULIN GLARGINE (U-100) 100 * Inject 10 Units subcutaneousl* INSULIN LISPRO (U-100) 100 UN* Inject 10 Units subcutaneousl* LORATADINE 10 MG TABLET Take 1 tablet by mouth once d* VERAPAMIL 40 MG TABLET Take 1 tablet by mouth three * ATORVASTATIN 10 MG TABLET Take 1 tablet by mouth daily * DICYCLOMINE 10 MG CAPSULE Take 1 capsule by mouth four * ONDANSETRON HCL 4 MG TABLET Take 1 tablet by mouth every * Patient not taking: Reported on 08/12/2018 LEVOTHYROXINE 100 MCG TABLET Take 1 tablet by mouth daily * BLOOD SUGAR DIAGNOSTIC STRIPS Test blood sugar 4 x daily. D* ADALIMUMAB 40 MG/0.8 ML SUBCU* Inject 40 mg subcutaneously o* NYSTATIN 100,000 UNIT/ML ORAL* 1 tsp swish and swallow until* FLUTICASONE 50 MCG/ACTUATION * Use 1-2 Sprays in each nostri* CETIRIZINE 10 MG CAPSULE Take by mouth daily at bedtim* FLUTICASONE 200 MCG-VILANTERO* Inhale 1 Inhalation as instru* ALBUTEROL SULFATE HFA 90 MCG/* Inhale 2 Puffs as instructed * BENZONATATE 200 MG CAPSULE Take 1 capsule by mouth three* Patient not taking: Reported on 08/12/2018 TRIAMCINOLONE ACETONIDE 0.1 %* Apply 1 application to affect* PEN NEEDLE, DIABETIC 31 GAUGE* Inject 1 Each subcutaneously * LISINOPRIL 2.5 MG TABLET TAKE 1 TABLET BY MOUTH EVERY * Patient not taking: Reported on 08/12/2018 CHOLECALCIFEROL (VITAMIN D3) * Take 1 tablet by mouth once d* Patient not taking: Reported on 08/12/2018 WARFARIN 7.5 MG TABLET Take 1 tablet by mouth daily * WARFARIN 5 MG TABLET Take 1 tablet by mouth once d* MULTIVITAMIN WITH MINERALS TA* Take 1 tablet by mouth three * Patient not taking: Reported on 08/12/2018 VITAMIN E 400 UNIT CAPSULE Take 2 capsules by mouth once* SUCRALFATE 100 MG/ML ORAL BART* Take 10 mL by mouth four time* Patient not taking: Reported on 08/12/2018 COMPOUNDED PRESCRIPTION SHOWER CHAIR WITH BACK D* COMPOUNDED PRESCRIPTION SUCTION STYLE GRAB BAR FOR SH* ALBUTEROL SULFATE HFA 90 MCG/* Inhale 2 Puffs as instructed * COUMADIN 1 MG TABLET take 5mg daily except for Sun* QUETIAPINE 25 MG TABLET Take 1 tablet by mouth twice * ALBUTEROL SULFATE 2.5 MG/3 ML* Use 3 mL via nebulizer every * BLOOD PRESSURE TEST KIT-WRIST* Use to check blood pressure o* HYDROXYCHLOROQUINE 200 MG TAB* Take 1 tablet by mouth once d* BUDESONIDE-FORMOTEROL HFA 160* Inhale 2 Puffs as instructed * Patient not taking: Reported on 08/12/2018 YASMINE-MAG ORAL Take by mouth. NYSTATIN 100,000 UNIT/GRAM TO* Apply 1 application to affect* ESCITALOPRAM 20 MG TABLET Take 1 tablet by mouth once d* COMPOUNDED PRESCRIPTION Morphine 15 mg per pump fille* LACTOBACILLUS ACIDOPHILUS 10 * Take 2 tablets by mouth daily* VITAMIN B COMPLEX TABLET Take 1 tablet by mouth once d* COMPOUNDED PRESCRIPTION Decrease BiPAP settings to 11* MISCELLANEOUS MEDICAL SUPPLY * CUSTOM JOBST KNEE HI KIRSTY* KETOCONAZOLE 2 % TOPICAL CREAM Apply 1 application to affect* OMEGA-3 FATTY ACIDS-VITAMIN E* Take 1 capsule by mouth three* Problem List As Of Date 08/28/2018 Noted Resolved OTHER LUNG DISEASE NEC [J98.4] Asthma [J45.909] OTHER UNSPEC SLEEP APNEA [G47.30] Dysmetabolic syndrome X [E88.81] 09/11/2011 Fibromyalgia [[id number]] Embolism and thrombosis (HCC) [I74.9] INVALID FOR*05/05/2018 GOITER NOS [E04.9] REFLUX ESOPHAGITIS [K21.0] NAUSEA ALONE [R11.0] ACUTE GASTRITIS W/O HEMORRHAGE [K29.00] INVALID FOR* CONSTIPATION NOS [K59.00] INVALID FOR* More... 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 Obstructive Sleep Apnea [G47.33] INVALID FOR* More... Hypothyroidism [E03.9] INVALID FOR* Exostosis of unspecified site [M89.8X9] INVALID FOR*11/27/2017 Other hammer toe (acquired) [M20.40] INVALID FOR*11/27/2017 Hx of hysterectomy [Z90.710] INVALID FOR* More... Allergic rhinitis [J30.9] More... 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] INVALID FOR* Environmental allergies [Z91.09] INVALID FOR*11/27/2017 Morbid obesity due to excess calories (HCC) [E6* Chronic kidney disease, stage III (moderate) [N*INVALID FOR*11/27/2017 Essential hypertension [I10] INVALID FOR* Nephrolithiasis [N20.0] INVALID FOR* Vitamin D deficiency [E55.9] INVALID FOR* Rheumatoid arthritis (HCC) [M06.9] INVALID FOR* Bipolar disorder, unspecified [F31.9] INVALID FOR* Alopecia, unspecified [L65.9] INVALID FOR*11/27/2017 Personal history of pulmonary embolism [Z86.711]INVALID FOR* Irritable bowel syndrome [K58.9] INVALID FOR* Neuropathy [G62.9] INVALID FOR* Incisional hernia [K43.2] INVALID FOR* Polycythemia, secondary [D75.1] INVALID FOR* Anticoagulated on Coumadin [Z51.81, Z79.01] INVALID FOR* STACY treated with BiPAP [G47.33] More... Type 2 DM with CKD stage 3 and hypertension (HC*INVALID FOR* Polypharmacy [Z79.899] INVALID FOR* Noncompliance with treatment [Z91.19] INVALID FOR* CKD (chronic kidney disease) stage 4, GFR 15-29*INVALID FOR*08/26/2017 Nonallergic rhinitis [J31.0] INVALID FOR* History of deep vein thrombosis [Z86.718] INVALID FOR* Hypoxemia [R09.02] INVALID FOR* More... Acute kidney injury superimposed on chronic kid*INVALID FOR* Metabolic encephalopathy [G93.41] INVALID FOR* Hyperkalemia [E87.5] INVALID FOR* Abdominal pannus [E65] INVALID FOR* Encounter Status:Closed by LEANA HICKMAN on 08/28/18 CBC W/DIFF, AUTOMATED Collected: 08/23/2018 Status: F Source: [place] 3:01 PM [facility] REPOSITORY TYPE CODE TESTS RESULT OUT OF RANGE REFERENCE UNITS LAB L100.1000 4.4-11.0 K/mm3 Normal WBC 7.5 LAB L100.1200 4.2-5.4 M/mm3 Normal RBC 4.26 LAB L100.1300 12.0-15.0 g/dl Normal HGB 14.0 LAB L100.1400 37-47 % Normal HCT 43.2 LAB L100.1500 81-99 fL High MCV 101.4 LAB L100.1600 27.0-32.0 pg High MCH 32.9 LAB L100.1700 32-36 g/gl Normal MCHC 32.4 LAB L100.1810 11.6-14.6 % Normal RDW CV 14.2 LAB L100.1820 35.1-43.9 fl High RDW SD 52.7 LAB L100.1900 150-450 K/mm3 Normal PLT 167 LAB L100.2000 6.2-12.0 fl Normal MPV 10.6 LAB L100.2100 47-70 % Normal NEUT% 63.9 LAB L100.2200 19-41 % Normal LY% 29.8 LAB L100.2300 0-10 % Normal MONO% 6.0 LAB L100.2400 0-5 % Normal EO% 0.1 LAB L100.2500 0-1 % Normal BASO% 0.1 LAB L100.2550 0.0-0.9 % Normal IM GRAN % 0.100 Result Comment: IG% - Immature Granulocytes (promyelocytes, myelocytes and metamyelocytes) > 1% indicates that a LEFT SHIFT is Present. LAB L100.2620 2.0-7.7 X10 3/uL Normal Absolute Neut 4.8 LAB L100.2720 0.83-4.51 X10 3/ul Normal Absolute Lymph 2.23 Performed By: #### L100.0100 #### [facility] [address] [place], [place], [address] COMPREHENSIVE METABOLIC Collected: 08/23/2018 Status: F [facility] REPOSITORY TYPE CODE TESTS RESULT OUT OF RANGE REFERENCE UNITS LAB L501.0100 74-106 mg/dL High GLU 186 Result Comment: Fasting Glucose result greater than or equal to 126 mg/dL suggests DIABETES MELLITUS per A.D.A. criteria. Please note revised GLUCOSE reference range effective 2017. LAB L501.1000 7-18 mg/dL High BUN 28 LAB L501.1100 0.55-1.02 mg/dL High CREAT,SERUM 1.36 Result Comment: The validity of the calculated GFR AND GFRAA in patients over 70 years has not been determined. Clinical correlation is essential. LAB L501.1110 >60 mL/min Low EST GFR 44 Result Comment: Non- GFR Calc LAB L501.1115 >60 mL/min Low EST GFR - AA 53 Result Comment: GFR Calc LAB L501.1300 10-20 RATIO High BUN/CRE 20.6 LAB L501.1500 6.4-8.2 g/dL T Normal PROT 7.2 LAB L501.1800 3.2-5.0 g/dL Normal ALB 3.8 LAB L501.1950 2.2-4.2 g/dL Normal GLOB 3.4 LAB L501.2000 0.9-2.4 RATIO Normal A/G 1.1 LAB L501.2200 8.5-10.1 mg/dL CA Normal 9.2 LAB L501.4100 15-37 U/L Normal AST 15 LAB L501.4305 45-117 U/L High ALK P 142 LAB L501.4405 13-56 U/L Normal ALT 34 LAB L501.4600 0.20-1.00 mg/dL T Normal BILI 0.30 LAB L501.5300 136-145 mmol/L NA Normal 143 LAB L501.5600 3.5-5.1 mmol/L K Normal 3.9 LAB L501.5900 98-107 mmol/L High CL 111 LAB L501.6100 21.0-32.0 mmol/L Normal CO2 23.0 LAB L501.6200 5-15 Normal GAP 9 Performed By: #### L500.4050 #### [facility] [address] [place], [address] PROGRESS Observed: 08/21/2018 Status: COMPLETED Source: [place] 2:29 PM [facility] REPOSITORY O ID: [id number] Author: Olga Siegel [facility] Service: (none) Author Type: Registered Nurse Type: Progress Notes Filed: 09/16/2018 10:43 AM Note Text: PRIMARY CARE COORDINATION FOLLOW-UP NOTE Provider Action/FYI Pt did not return call Patient identified by name and date of . NO Spoke to No one Summary: Pt did not return call. Concerns: None Logistics Management Specialist plan for next outreach: Will follow up when pt calls Signature Olga Sheth RN Ambulatory Regulator Pin Inserter Internal Medicine [facility] August 21, 2018 JING Observed: 08/21/2018 Status: COMPLETED Source: [place] 12:00 AM [facility] REPOSITORY Patient Outreach (INTMWS) DEBORA MEYERS ([id number]) 1965 F Date Time Provider Department 08/21/18 OLGA MARIE During your visit today, we recorded the following information about you: Olga Siegel RN 09/16/2018 10:43 AM Signed PRIMARY CARE COORDINATION FOLLOW-UP NOTE Provider Action/FYI Pt did not return call Patient identified by name and date of . NO Spoke to No one Summary: Pt did not return call. Concerns: None Logistics Management Specialist plan for next outreach: Will follow up when pt calls Signature Olga Sheth RN Ambulatory Regulator Pin Inserter Internal Medicine [facility] August 21, 2018 Allergies As of Date: 08/21/2018 Noted Allergy Reaction environmental [Other] 07/14/2005 2 - Rash 3 - Cough VITAMIN K 07/14/2005 7 - Swelling CHOLESTYRAMINE 03/31/2013 14 - Other: See Comments Comments: constipation IBUPROFEN 06/29/2009 6 - Diarrhea MACROBID (NITROFURANTOIN MONOHYD/*12/06/2010 2 - Rash Comments: states that broke out all over with rash last time was given this in September 2010 peroxide [Other] 07/14/2005 5 - Intolerance SULFA (SULFONAMIDE ANTIBIOTICS) 02/05/2013 2 - Rash TYLENOL (ACETAMINOPHEN) 03/17/2014 11 - Vomiting Comments: Nausea Date Reviewed: 08/12/2018 Reviewed by: Venecia Avila LPN - Fully Assessed 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 [[id number]] Prescriptions as of 08/21/2018 Sig: OMEPRAZOLE 40 MG CAPSULE,LALITO* Take 1 capsule by mouth once * CLONAZEPAM 1 MG TABLET Take 0.5-1 tablets by mouth d* ENOXAPARIN 40 MG/0.4 ML SUBCU* 40 mg subcutaneous every 12 h* ALPHA LIPOIC ACID 600 MG CAPS* Take 1 capsule by mouth twice* PEN NEEDLE, DIABETIC 31 GAUGE* Use with insulin pens 5 times* TOPIRAMATE 50 MG TABLET Take 1 tablet by mouth three * X ROPINIROLE 1 MG TABLET Take 1 tablet by mouth four t* MELATONIN 1 MG TABLET Take 1 tablet by mouth daily * Patient not taking: Reported on 08/12/2018 INSULIN LISPRO (U-100) 100 UN* Inject 10 Units subcutaneousl* X INSULIN GLARGINE (U-100) 100 * Inject 10 Units subcutaneousl* LORATADINE 10 MG TABLET Take 1 tablet by mouth once d* VERAPAMIL 40 MG TABLET Take 1 tablet by mouth three * ATORVASTATIN 10 MG TABLET Take 1 tablet by mouth daily * DICYCLOMINE 10 MG CAPSULE Take 1 capsule by mouth four * ONDANSETRON HCL 4 MG TABLET Take 1 tablet by mouth every * Patient not taking: Reported on 08/12/2018 LEVOTHYROXINE 100 MCG TABLET Take 1 tablet by mouth daily * BLOOD SUGAR DIAGNOSTIC STRIPS Test blood sugar 4 x daily. D* ADALIMUMAB 40 MG/0.8 ML SUBCU* Inject 40 mg subcutaneously o* NYSTATIN 100,000 UNIT/ML ORAL* 1 tsp swish and swallow until* FLUTICASONE 50 MCG/ACTUATION * Use 1-2 Sprays in each nostri* CETIRIZINE 10 MG CAPSULE Take by mouth daily at bedtim* FLUTICASONE 200 MCG-VILANTERO* Inhale 1 Inhalation as instru* ALBUTEROL SULFATE HFA 90 MCG/* Inhale 2 Puffs as instructed * BENZONATATE 200 MG CAPSULE Take 1 capsule by mouth three* Patient not taking: Reported on 08/12/2018 TRIAMCINOLONE ACETONIDE 0.1 %* Apply 1 application to affect* Patient not taking: Reported on 09/05/2018 PEN NEEDLE, DIABETIC 31 GAUGE* Inject 1 Each subcutaneously * LISINOPRIL 2.5 MG TABLET TAKE 1 TABLET BY MOUTH EVERY * Patient not taking: Reported on 08/12/2018 CHOLECALCIFEROL (VITAMIN D3) * Take 1 tablet by mouth once d* WARFARIN 7.5 MG TABLET Take 1 tablet by mouth daily * WARFARIN 5 MG TABLET Take 1 tablet by mouth once d* MULTIVITAMIN WITH MINERALS TA* Take 1 tablet by mouth three * VITAMIN E 400 UNIT CAPSULE Take 2 capsules by mouth once* SUCRALFATE 100 MG/ML ORAL BART* Take 10 mL by mouth four time* COMPOUNDED PRESCRIPTION SHOWER CHAIR WITH BACK D* COMPOUNDED PRESCRIPTION SUCTION STYLE GRAB BAR FOR SH* ALBUTEROL SULFATE HFA 90 MCG/* Inhale 2 Puffs as instructed * COUMADIN 1 MG TABLET take 5mg daily except for Sun* QUETIAPINE 25 MG TABLET Take 1 tablet by mouth twice * ALBUTEROL SULFATE 2.5 MG/3 ML* Use 3 mL via nebulizer every * BLOOD PRESSURE TEST KIT-WRIST* Use to check blood pressure o* HYDROXYCHLOROQUINE 200 MG TAB* Take 1 tablet by mouth once d* BUDESONIDE-FORMOTEROL HFA 160* Inhale 2 Puffs as instructed * Patient not taking: Reported on 08/12/2018 YASMINE-MAG ORAL Take by mouth. NYSTATIN 100,000 UNIT/GRAM TO* Apply 1 application to affect* ESCITALOPRAM 20 MG TABLET Take 1 tablet by mouth once d* COMPOUNDED PRESCRIPTION Morphine 15 mg per pump fille* LACTOBACILLUS ACIDOPHILUS 10 * Take 2 tablets by mouth daily* VITAMIN B COMPLEX TABLET Take 1 tablet by mouth once d* COMPOUNDED PRESCRIPTION Decrease BiPAP settings to 11* MISCELLANEOUS MEDICAL SUPPLY * CUSTOM JOBST KNEE HI KIRSTY* KETOCONAZOLE 2 % TOPICAL CREAM Apply 1 application to affect* OMEGA-3 FATTY ACIDS-VITAMIN E* Take 1 capsule by mouth three* Problem List As Of Date 08/21/2018 Noted Resolved OTHER LUNG DISEASE NEC [J98.4] Asthma [J45.909] OTHER UNSPEC SLEEP APNEA [G47.30] Dysmetabolic syndrome X [E88.81] 09/11/2011 Fibromyalgia [ESR7250] Embolism and thrombosis (HCC) [I74.9] INVALID FOR*05/05/2018 GOITER NOS [E04.9] REFLUX ESOPHAGITIS [K21.0] NAUSEA ALONE [R11.0] ACUTE GASTRITIS W/O HEMORRHAGE [K29.00] INVALID FOR* CONSTIPATION NOS [K59.00] INVALID FOR* More... 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 Obstructive Sleep Apnea [G47.33] INVALID FOR* More... Hypothyroidism [E03.9] INVALID FOR* Exostosis of unspecified site [M89.8X9] INVALID FOR*11/27/2017 Other hammer toe (acquired) [M20.40] INVALID FOR*11/27/2017 Hx of hysterectomy [Z90.710] INVALID FOR* More... Allergic rhinitis [J30.9] More... 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] INVALID FOR* Environmental allergies [Z91.09] INVALID FOR*11/27/2017 Morbid obesity due to excess calories (HCC) [E6* Chronic kidney disease, stage III (moderate) [N*INVALID FOR*11/27/2017 Essential hypertension [I10] INVALID FOR* Nephrolithiasis [N20.0] INVALID FOR* Vitamin D deficiency [E55.9] INVALID FOR* Rheumatoid arthritis (HCC) [M06.9] INVALID FOR* Bipolar disorder, unspecified [F31.9] INVALID FOR* Alopecia, unspecified [L65.9] INVALID FOR*11/27/2017 Personal history of pulmonary embolism [Z86.711]INVALID FOR* Irritable bowel syndrome [K58.9] INVALID FOR* Neuropathy [G62.9] INVALID FOR* Incisional hernia [K43.2] INVALID FOR* Polycythemia, secondary [D75.1] INVALID FOR* Anticoagulated on Coumadin [Z51.81, Z79.01] INVALID FOR* STACY treated with BiPAP [G47.33] More... Type 2 DM with CKD stage 3 and hypertension (HC*INVALID FOR* Polypharmacy [Z79.899] INVALID FOR* Noncompliance with treatment [Z91.19] INVALID FOR* CKD (chronic kidney disease) stage 4, GFR 15-29*INVALID FOR*08/26/2017 Nonallergic rhinitis [J31.0] INVALID FOR* History of deep vein thrombosis [Z86.718] INVALID FOR* Hypoxemia [R09.02] INVALID FOR* More... Acute kidney injury superimposed on chronic kid*INVALID FOR* Metabolic encephalopathy [G93.41] INVALID FOR* Hyperkalemia [E87.5] INVALID FOR* Abdominal pannus [E65] INVALID FOR* Encounter Status:Closed by OLGA SHETH on 09/16/18 PROGRESS Observed: 08/12/2018 Status: COMPLETED Source: [place] 11:19 AM [facility] REPOSITORY HNO ID: [id number] Author: Livia Scott Service: (none) Author Type: Physician Type: Progress Notes Filed: 08/21/2018 7:28 PM Note Text: Patient presents with: Recheck: Follow up SUBJECTIVE: Debora Meyers is a 53 year old year old lady here today for 4 month follow up appointment for review of medical conditions. noted stressors Working on losing weight Better choices [place] Noted issues with abdominal pannus on right side being heavy and painful as well as on the left though not as much. Protruding more than it used to on right side. Bruise on back side after was in hospital. Buttocks hurts now. Sounds like hematoma there--lump noted. Has eklutna pillow. Using ice. Bed sores are healing--from hospital stay. Just a few scabs noted. Had been using neosporin and has helped. PAST MEDICAL HISTORY Diagnosis Date - Allergic rhinitis used to receive allergy shots from Dr. Brown - Alopecia, unspecified 08/29/2012 - Anticoagulated on Coumadin INR goal 3.0 to 4.0 - Asthma - Benign neoplasm of stomach - Bipolar disorder, unspecified 08/29/2012 - Diabetes mellitus type 2, controlled, without complications (HCC) 08/12/2007 In records from treatment after elevated sugars in 2001 during hospital stay; no longer on any meds and sugars have been fine--either normal or just in impaired fasting glucose level - Embolism and thrombosis (HCC) 08/14/2005 - Environmental allergies 01/17/2012 - Exostosis of unspecified site 09/27/2010 - Fibromyalgia - Goiter, unspecified - Hypothyroidism 10/28/2009 - Nausea alone - Obesity - STCAY treated with BiPAP [facility] supplier - Other diseases of lung, not elsewhere classified - Other hammer toe (acquired) 09/27/2010 - RA (rheumatoid arthritis) (HCC) - 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 also elevated BMI . RECOMMENDATIONS are 1.weight loss.2. not seen significant sleep apnea however absense or REM sleep sleep apnea may be understimated.Extrinsic factors leading to excessive daytime somnolence such as mood disturbances and or medication effect may be a factor Current Outpatient Prescriptions: Alpha Lipoic Acid 600 mg cap Take 1 capsule by mouth twice daily. insulin needles, DISPOSABLE, (BD INSULIN PEN NEEDLE UF) 31 gauge x 5/16 ndle Use with insulin pens 5 times daily, or as directed, Dx: E11.22 topiramate (TOPAMAX) 50 mg tablet Take 1 tablet by mouth three times daily. for headache rOPINIRole (REQUIP) 1 mg tablet Take 1 tablet by mouth four times daily. As directed insulin glargine (LANTUS SOLOSTAR U-100 INSULIN) 100 unit/mL (3 mL) inpn Inject 10 Units subcutaneously twice daily. insulin lispro (HUMALOG KWIKPEN INSULIN) 100 unit/mL inpn Inject 10 Units subcutaneously w MEALS. Three times daily loratadine (CLARITIN) 10 mg tablet Take 1 tablet by mouth once daily. verapamil (CALAN, ISOPTIN) 40 mg tablet Take 1 tablet by mouth three times daily. atorvastatin (LIPITOR) 10 mg tablet Take 1 tablet by mouth daily at bedtime. For cholesterol. dicyclomine (BENTYL) 10 mg capsule Take 1 capsule by mouth four times daily as needed (cramping pains and urgency with bowels). levothyroxine (LEVOXYL) 100 mcg tablet Take 1 tablet by mouth daily before breakfast. blood sugar diagnostic (TRUE METRIX GLUCOSE TEST STRIP) test strip Test blood sugar 4 x daily. Dx: E11.22. Insulin use: Yes adalimumab (HUMIRA) 40 mg/0.8 mL injection Inject 40 mg subcutaneously one time only. nystatin (MYCOSTATIN) 100,000 unit/mL suspension 1 tsp swish and swallow until gone, 4 times daily fluticasone (FLONASE) 50 mcg/actuation nasal spray Use 1-2 Sprays in each nostril once daily. fluticasone-vilanterol (BREO ELLIPTA) 200-25 mcg/dose inhaler Inhale 1 Inhalation as instructed once daily. albuterol HFA (PROVENTIL HFA, VENTOLIN HFA) 90 mcg/actuation inhaler Inhale 2 Puffs as instructed every 4 hours as needed (for cough, wheezing, chest tightness or shortness of breath. Use with spacer. ). triamcinolone acetonide (KENALOG) 0.1 % cream Apply 1 application to affected area three times daily as needed (itchy rash/psoriasis on hands). Apply sparingly insulin needles, DISPOSABLE, (UNIFINE PENTIPS) 31 gauge x 5/16 ndle Inject 1 Each subcutaneously four times daily. warfarin (COUMADIN) 7.5 mg tablet Take 1 tablet by mouth daily as directed. warfarin (COUMADIN) 5 mg tablet Take 1 tablet by mouth once daily. SHENG - 7.5mg , sun and 5mg all other days or as directed alpha tocopheryl acetate (VITAMIN E) 400 unit capsule Take 2 capsules by mouth once daily. Omeprazole 40 mg capsule Take 1 capsule by mouth once daily. COMPOUNDED PRESCRIPTION SHOWER CHAIR WITH BACK DX M06.9 I74.9 COMPOUNDED PRESCRIPTION SUCTION STYLE GRAB BAR FOR SHOWER WALL INSTALLATION DX M 06.9 I 74.9 albuterol HFA (PROAIR HFA) 90 mcg/actuation inhaler Inhale 2 Puffs as instructed every 4 hours as needed for Wheezing/Shortness of Breath. COUMADIN 1 mg tablet take 5mg daily except for Sunday, take 7.5 mg on Sunday or as directedDO NOT SUBSITUTE WITH GENERIC. QUEtiapine (SEROQUEL) 25 mg tablet Take 1 tablet by mouth twice daily. albuterol (PROVENTIL) 2.5 mg /3 mL (0.083 %) nebulizer solution Use 3 mL via nebulizer every 6 hours as needed. Blood Pressure Test Kit-Wrist kit Use to check blood pressure once daily as directed DX:I10 hydroxychloroquine (PLAQUENIL) 200 mg tablet Take 1 tablet by mouth once daily. CALCIUM CARB/MAGNESIUM OX,CARB (YASMINE-MAG ORAL) Take by mouth. nystatin (MYCOSTATIN) cream Apply 1 application to affected area twice daily. As needed escitalopram oxalate (LEXAPRO) 20 mg tablet Take 1 tablet by mouth once daily. COMPOUNDED PRESCRIPTION Morphine 15 mg per pump filled every [address] Wetzel Lactobacillus acidophilus (PROBIOTIC) 10 billion cell cap Take 2 tablets by mouth daily at bedtime. COMPOUNDED PRESCRIPTION Decrease BiPAP settings to 11/5 cmH2O. Diagnosis G47.33 Miscellaneous Medical Supply [facility] [place] CUSTOM JOBST KNEE HI COMPRESSION STOCKING 30-40MM/HG. Dispense 2 pair Diagnosis:(I87.2) Venous insufficiency of both lower extremities; (R60.9) Edema ketoconazole (NIZORAL) 2 % cream Apply 1 application to affected area once daily. as needed to corners of lips and other rash as directed enoxaparin (LOVENOX) 40 mg/0.4 mL syrg 40 mg subcutaneous every 12 hours starting August 12 in the morning; take only the morning dose August 14; do not take August 15 (day of procedure); resume 40 mg every 12 hours starting evening of August 16 ; continue until INR therapeutic melatonin 1 mg tablet Take 1 tablet by mouth daily at bedtime. (Patient not taking: Reported on 08/12/2018 ) ondansetron (ZOFRAN) 4 mg tablet Take 1 tablet by mouth every 8 hours as needed for Nausea/Vomiting. (Patient not taking: Reported on 08/12/2018 ) Cetirizine (ZYRTEC) 10 mg cap Take by mouth daily at bedtime. Benzonatate 200 mg capsule Take 1 capsule by mouth three times daily as needed. (Patient not taking: Reported on 08/12/2018 ) lisinopril 2.5 mg tablet TAKE 1 TABLET BY MOUTH EVERY DAY (Patient not taking: Reported on 08/12/2018) cholecalciferol (VITAMIN D3) 5,000 unit tab Take 1 tablet by mouth once daily. (Patient not taking: Reported on 08/12/2018 ) multivitamin with minerals (HAIR,SKIN AND NAILS) tablet Take 1 tablet by mouth three times daily. (Patient not taking: Reported on 08/12/2018 ) sucralfate (CARAFATE) 100 mg/mL suspension Take 10 mL by mouth four times daily as needed. As directed (usually before meals and bedtime as needed) (Patient not taking: Reported on 08/12/2018 ) budesonide-formoterol (SYMBICORT) 160-4.5 mcg/actuation inhaler Inhale 2 Puffs as instructed twice daily. (Patient not taking: Reported on 08/12/2018 ) vitamin b complex (B COMPLETE) tab Take 1 tablet by mouth once daily. [place]-3 Fatty Acids-Vitamin E (FISH OIL) 1,000 mg cap Take 1 capsule by mouth three times daily. No current facility-administered medications for this visit. OBJECTIVE: BP 168/102 Pulse 84 Resp 20 Wt 117.9 kg (260 lb) BMI 50.78 kg/m? Patient is alert, oriented times 3, no apparent distress, affect is bright, reactive. Last 5 Encounter BP Readings: Date: BP: 08/12/2018 168/102 06/14/2018 160/100 04/24/2018 114/80 04/09/2018 136/82 01/22/2018 141/85 Last 5 Encounter Wt Readings: Date: Wt: 08/12/2018 117.9 kg (260 lb) 06/14/2018 124.3 kg (274 lb) 04/24/2018 122.5 kg (270 lb) 04/09/2018 123.4 kg (272 lb) 01/22/2018 120.2 kg (265 lb) 08/12/18 1111 08/12/18 1214 BP: 168/102 148/80 Pulse: 84 Resp: 20 Weight: 117.9 kg (260 lb) HEENT: sclera nonicteric; EOM grossly intact Heart: Regular rate, rhythm, no murmurs, gallops, rubs. Lungs: Clear to auscultation, bilaterally, breathing non labored. Abdomen: large abdominal pannus with right side extending down over right thigh more than left side extends over left thigh. Ext: No cyanosis, clubbing, or edema. Component Latest Ref Rng AND Units 01/02/2017 03/12/2017 07/28/2017 11/13/2017 04/12/2018 06/28/2018 08/09/2018 Protein, Total 6.3 - 8.0 g/dL 6.9 7.1 7.0 Albumin 3.9 - 4.9 g/dL 4.0 4.0 4.2 Calcium 8.5 - 10.2 mg/dL 10.1 (H) 11.2 (H) 9.9 10.5 (H) 9.5 9.8 Bilirubin, Total 0.2 - 1.3 mg/dL 0.3 0.2 0.3 Alkaline Phosphatase 32 - 117 U/L 110 107 92 AST 13 - 35 U/L 30 32 43 (H) Glucose 74 - 99 mg/dL 346 (H) 341 (H) 250 (H) 244 (H) 220 (H) 174 (H) BUN 7 - 21 mg/dL 32 (H) 32 (H) 41 (H) 30 (H) 30 (H) 17 Creatinine 0.58 - 0.96 mg/dL 1.87 (H) 2.51 (H) 1.66 (H) 1.87 (H) 1.62 (H) 1.20 (H) Sodium 136 - 144 mmol/L 141 137 139 140 137 143 Potassium 3.7 - 5.1 mmol/L 3.9 3.8 4.1 3.9 4.2 4.1 Chloride 97 - 105 mmol/L 99 95 (L) 99 99 97 107 (H) CO2 22 - 30 mmol/L 27 24 24 24 26 20 (L) Anion Gap 9 - 18 mmol/L 15 18 16 17 14 16 ALT 7 - 38 U/L 32 36 49 (H) eGFR- 35 25 40 34 41 57 eGFR-All Other Races . 29 20 33 29 34 47 Triglyceride <150 mg/dL 274 (H) 343 (H) Cholesterol, Total <200 mg/dL 214 (H) 284 (H) HDL Cholesterol >39 mg/dL 52 (L) 52 VLDL Cholesterol <30 mg/dL 55 (H) 69 (H) LDL Cholesterol <100 mg/dL 107 163 (H) Fasting Time hrs 12 2 TC:HDL Ratio <5.10 4.12 5.46 (H) LDL:HDL Ratio <2.54 2.06 3.13 (H) Non HDL Cholesterol <130 mg/dL 162 (H) 232 (H) Hemoglobin A1C 4.3 - 5.6 % 8.6 (H) 9.6 (H) 7.1 (H) 8.4 (H) 8.4 (H) 5.8 (H) Estimated Average Glucose mg/dL 200 229 157 194 194 120 ASSESSMENT AND PLAN: Encounter Diagnosis ICD-10-CM 1. Type 2 DM with CKD stage 3 and hypertension (HCC) E11.22 BASIC METABOLIC PNL I12.9 LIPID PANEL BASIC N18.3 2. Vitamin D deficiency E55.9 VITAMIN D 25 HYDROXY 3. Acquired hypothyroidism E03.9 TSH BLD T4 FREE/FREE THYROX 4. Gastroesophageal reflux disease without esophagitis K21.9 Omeprazole 40 mg capsule 5. Anxiety F41.9 clonazePAM (KLONOPIN) 1 mg tablet 6. Psychophysiological insomnia F51.04 clonazePAM (KLONOPIN) 1 mg tablet 7. Abdominal pannus E65 Britney helping for stomach and fluid retention Also taking iron. Neuropathy resolved. No longer needs gabapentin. Still with anxiety, especially since asked for a dissolution. He no longer wants to take care of her, even financially, according to patient. She states she does not want to do that so he will have to divorce her. She does have a restoration home but same restoration as his. Encouraged her to talk to her polysom tech. Consider counseling even if he sees no point in it because he does not even want to try to work on their marriage at this point. She thinks he is stressed because is also taking care of his mother who is in failing health too. Will okay continued clonazepam at night but recommend slowly tapering to lowest dose needed if not off eventually. Above issues addressed with patient. Patient involved in shared decision making for management of medical issues. History and medications reviewed. Epic updated as needed Refills taken care of and meds adjusted as indicated after reviewed history, exam and labs. Health Maintenance reviewed. Updated record and/or ordered tests as recorded. Encouraged on efforts at healthy diet and regular exercise and adequate sleep. Needs to keep working on diet and exercise with lifestyle changes for effective weight loss as well as control of DM, and control of BP and lipids. HgA1C much improved and back into normal range again. Monitor for frequent hypoglycemia. Adjust meds if needed. BP much improved on recheck even if still above ideal goal <130/80. Continue present management. Further evaluation and treatment as indicated. Labs as above. Further evaluation and treatment as indicated. hard to tell whether or not euthyroid at this time since some depression symptoms with stressors, issues with fatigue non specific, etc. She asked about abdominal pannus issue since is causing pain now. Told her to check with her insurance who is covered. Get back to me so can make referral. The large pannus causing pain is keeping her from being able to walk more to help with her efforts at weight loss. Discussed that she will most likely need to lose some weight in order to qualify for panniculectomy, so encouraged on efforts at further weight loss with cutting back on total calories and staying as active as able. Chair exercises at least. Further evaluation and treatment as indicated. The majority of the visit was spent counseling and/or coordinating care for the patient. [id number] time was at least 25 minutes. Livia Scott MD CNOV Observed: 08/12/2018 Status: COMPLETED Source: [facility] 11:00 AM [facility] Office Visit (INTMWS) LUIGIDEBORA ([id number]) 1965 F Date Time Provider Department 08/12/18 11:00 AM LIVIA SCOTT [facility] During your visit today, we recorded the following information about you: Pulse Respiration Blood pressure Weight 84/minute 20/minute 148/80 117.9 kg Livia Scott MD 08/21/2018 7:28 PM Signed Patient presents with: Recheck: Follow up SUBJECTIVE: Debora Meyers is a 53 year old year old lady here today for 4 month follow up appointment for review of medical conditions. noted stressors Working on losing weight Better choices [place] Noted issues with abdominal pannus on right side being heavy and painful as well as on the left though not as much. Protruding more than it used to on right side. Bruise on back side after was in hospital. Buttocks hurts now. Sounds like hematoma there--lump noted. Has eklutna pillow. Using ice. Bed sores are healing--from hospital stay. Just a few scabs noted. Had been using neosporin and has helped. PAST MEDICAL HISTORY Diagnosis Date - Allergic rhinitis used to receive allergy shots from Dr. Brown - Alopecia, unspecified 08/29/2012 - Anticoagulated on Coumadin INR goal 3.0 to 4.0 - Asthma - Benign neoplasm of stomach - Bipolar disorder, unspecified 08/29/2012 - Diabetes mellitus type 2, controlled, without complications (HCC) 08/12/2007 In records from treatment after elevated sugars in 2001 during hospital stay; no longer on any meds and sugars have been fine--either normal or just in impaired fasting glucose level - Embolism and thrombosis (HCC) 08/14/2005 - Environmental allergies 01/17/2012 - Exostosis of unspecified site 09/27/2010 - Fibromyalgia - Goiter, unspecified - Hypothyroidism 10/28/2009 - Nausea alone - Obesity - STACY treated with BiPAP [facility] supplier - Other diseases of lung, not elsewhere classified - Other hammer toe (acquired) 09/27/2010 - RA (rheumatoid arthritis) (HCC) - 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 also elevated BMI . RECOMMENDATIONS are 1.weight loss.2. not seen significant sleep apnea however absense or REM sleep sleep apnea may be understimated.Extrinsic factors leading to excessive daytime somnolence such as mood disturbances and or medication effect may be a factor Current Outpatient Prescriptions: Alpha Lipoic Acid 600 mg cap Take 1 capsule by mouth twice daily. insulin needles, DISPOSABLE, (BD INSULIN PEN NEEDLE UF) 31 gauge x 5/16 ndle Use with insulin pens 5 times daily, or as directed, Dx: E11.22 topiramate (TOPAMAX) 50 mg tablet Take 1 tablet by mouth three times daily. for headache rOPINIRole (REQUIP) 1 mg tablet Take 1 tablet by mouth four times daily. As directed insulin glargine (LANTUS SOLOSTAR U-100 INSULIN) 100 unit/mL (3 mL) inpn Inject 10 Units subcutaneously twice daily. insulin lispro (HUMALOG KWIKPEN INSULIN) 100 unit/mL inpn Inject 10 Units subcutaneously w MEALS. Three times daily loratadine (CLARITIN) 10 mg tablet Take 1 tablet by mouth once daily. verapamil (CALAN, ISOPTIN) 40 mg tablet Take 1 tablet by mouth three times daily. atorvastatin (LIPITOR) 10 mg tablet Take 1 tablet by mouth daily at bedtime. For cholesterol. dicyclomine (BENTYL) 10 mg capsule Take 1 capsule by mouth four times daily as needed (cramping pains and urgency with bowels). levothyroxine (LEVOXYL) 100 mcg tablet Take 1 tablet by mouth daily before breakfast. blood sugar diagnostic (TRUE METRIX GLUCOSE TEST STRIP) test strip Test blood sugar 4 x daily. Dx: E11.22. Insulin use: Yes adalimumab (HUMIRA) 40 mg/0.8 mL injection Inject 40 mg subcutaneously one time only. nystatin (MYCOSTATIN) 100,000 unit/mL suspension 1 tsp swish and swallow until gone, 4 times daily fluticasone (FLONASE) 50 mcg/actuation nasal spray Use 1-2 Sprays in each nostril once daily. fluticasone-vilanterol (BREO ELLIPTA) 200-25 mcg/dose inhaler Inhale 1 Inhalation as instructed once daily. albuterol HFA (PROVENTIL HFA, VENTOLIN HFA) 90 mcg/actuation inhaler Inhale 2 Puffs as instructed every 4 hours as needed (for cough, wheezing, chest tightness or shortness of breath. Use with spacer. ). triamcinolone acetonide (KENALOG) 0.1 % cream Apply 1 application to affected area three times daily as needed (itchy rash/psoriasis on hands). Apply sparingly insulin needles, DISPOSABLE, (UNIFINE PENTIPS) 31 gauge x 5/16 ndle Inject 1 Each subcutaneously four times daily. warfarin (COUMADIN) 7.5 mg tablet Take 1 tablet by mouth daily as directed. warfarin (COUMADIN) 5 mg tablet Take 1 tablet by mouth once daily. SHENG - 7.5mg , sun and 5mg all other days or as directed alpha tocopheryl acetate (VITAMIN E) 400 unit capsule Take 2 capsules by mouth once daily. Omeprazole 40 mg capsule Take 1 capsule by mouth once daily. COMPOUNDED PRESCRIPTION SHOWER CHAIR WITH BACK DX M06.9 I74.9 COMPOUNDED PRESCRIPTION SUCTION STYLE GRAB BAR FOR SHOWER WALL INSTALLATION DX M 06.9 I 74.9 albuterol HFA (PROAIR HFA) 90 mcg/actuation inhaler Inhale 2 Puffs as instructed every 4 hours as needed for Wheezing/Shortness of Breath. COUMADIN 1 mg tablet take 5mg daily except for Sunday, take 7.5 mg on Sunday or as directedDO NOT SUBSITUTE WITH GENERIC. QUEtiapine (SEROQUEL) 25 mg tablet Take 1 tablet by mouth twice daily. albuterol (PROVENTIL) 2.5 mg /3 mL (0.083 %) nebulizer solution Use 3 mL via nebulizer every 6 hours as needed. Blood Pressure Test Kit-Wrist kit Use to check blood pressure once daily as directed DX:I10 hydroxychloroquine (PLAQUENIL) 200 mg tablet Take 1 tablet by mouth once daily. CALCIUM CARB/MAGNESIUM OX,CARB (YASMINE-MAG ORAL) Take by mouth. nystatin (MYCOSTATIN) cream Apply 1 application to affected area twice daily. As needed escitalopram oxalate (LEXAPRO) 20 mg tablet Take 1 tablet by mouth once daily. COMPOUNDED PRESCRIPTION Morphine 15 mg per pump filled every [address] Wetzel Lactobacillus acidophilus (PROBIOTIC) 10 billion cell cap Take 2 tablets by mouth daily at bedtime. COMPOUNDED PRESCRIPTION Decrease BiPAP settings to 11/5 cmH2O. Diagnosis G47.33 Miscellaneous Medical Supply [facility] [place] CUSTOM JOBST KNEE HI COMPRESSION STOCKING 30-40MM/HG. Dispense 2 pair Diagnosis:(I87.2) Venous insufficiency of both lower extremities; (R60.9) Edema ketoconazole (NIZORAL) 2 % cream Apply 1 application to affected area once daily. as needed to corners of lips and other rash as directed enoxaparin (LOVENOX) 40 mg/0.4 mL syrg 40 mg subcutaneous every 12 hours starting August 12 in the morning; take only the morning dose August 14; do not take August 15 (day of procedure); resume 40 mg every 12 hours starting evening of August 16 ; continue until INR therapeutic melatonin 1 mg tablet Take 1 tablet by mouth daily at bedtime. (Patient not taking: Reported on 08/12/2018 ) ondansetron (ZOFRAN) 4 mg tablet Take 1 tablet by mouth every 8 hours as needed for Nausea/Vomiting. (Patient not taking: Reported on 08/12/2018 ) Cetirizine (ZYRTEC) 10 mg cap Take by mouth daily at bedtime. Benzonatate 200 mg capsule Take 1 capsule by mouth three times daily as needed. (Patient not taking: Reported on 08/12/2018 ) lisinopril 2.5 mg tablet TAKE 1 TABLET BY MOUTH EVERY DAY (Patient not taking: Reported on 08/12/2018) cholecalciferol (VITAMIN D3) 5,000 unit tab Take 1 tablet by mouth once daily. (Patient not taking: Reported on 08/12/2018 ) multivitamin with minerals (HAIR,SKIN AND NAILS) tablet Take 1 tablet by mouth three times daily. (Patient not taking: Reported on 08/12/2018 ) sucralfate (CARAFATE) 100 mg/mL suspension Take 10 mL by mouth four times daily as needed. As directed (usually before meals and bedtime as needed) (Patient not taking: Reported on 08/12/2018 ) budesonide-formoterol (SYMBICORT) 160-4.5 mcg/actuation inhaler Inhale 2 Puffs as instructed twice daily. (Patient not taking: Reported on 08/12/2018 ) vitamin b complex (B COMPLETE) tab Take 1 tablet by mouth once daily. [place]-3 Fatty Acids-Vitamin E (FISH OIL) 1,000 mg cap Take 1 capsule by mouth three times daily. No current facility-administered medications for this visit. OBJECTIVE: BP 168/102 Pulse 84 Resp 20 Wt 117.9 kg (260 lb) BMI 50.78 kg/m? Patient is alert, oriented times 3, no apparent distress, affect is bright, reactive. Last 5 Encounter BP Readings: Date: BP: 08/12/2018 168/102 06/14/2018 160/100 04/24/2018 114/80 04/09/2018 136/82 01/22/2018 141/85 Last 5 Encounter Wt Readings: Date: Wt: 08/12/2018 117.9 kg (260 lb) 06/14/2018 124.3 kg (274 lb) 04/24/2018 122.5 kg (270 lb) 04/09/2018 123.4 kg (272 lb) 01/22/2018 120.2 kg (265 lb) 08/12/18 1111 08/12/18 1214 BP: 168/102 148/80 Pulse: 84 Resp: 20 Weight: 117.9 kg (260 lb) HEENT: sclera nonicteric; EOM grossly intact Heart: Regular rate, rhythm, no murmurs, gallops, rubs. Lungs: Clear to auscultation, bilaterally, breathing non labored. Abdomen: large abdominal pannus with right side extending down over right thigh more than left side extends over left thigh. Ext: No cyanosis, clubbing, or edema. Component Latest Ref Rng AND Units 01/02/2017 03/12/2017 07/28/2017 11/13/2017 04/12/2018 06/28/2018 08/09/2018 Protein, Total 6.3 - 8.0 g/dL 6.9 7.1 7.0 Albumin 3.9 - 4.9 g/dL 4.0 4.0 4.2 Calcium 8.5 - 10.2 mg/dL 10.1 (H) 11.2 (H) 9.9 10.5 (H) 9.5 9.8 Bilirubin, Total 0.2 - 1.3 mg/dL 0.3 0.2 0.3 Alkaline Phosphatase 32 - 117 U/L 110 107 92 AST 13 - 35 U/L 30 32 43 (H) Glucose 74 - 99 mg/dL 346 (H) 341 (H) 250 (H) 244 (H) 220 (H) 174 (H) BUN 7 - 21 mg/dL 32 (H) 32 (H) 41 (H) 30 (H) 30 (H) 17 Creatinine 0.58 - 0.96 mg/dL 1.87 (H) 2.51 (H) 1.66 (H) 1.87 (H) 1.62 (H) 1.20 (H) Sodium 136 - 144 mmol/L 141 137 139 140 137 143 Potassium 3.7 - 5.1 mmol/L 3.9 3.8 4.1 3.9 4.2 4.1 Chloride 97 - 105 mmol/L 99 95 (L) 99 99 97 107 (H) CO2 22 - 30 mmol/L 27 24 24 24 26 20 (L) Anion Gap 9 - 18 mmol/L 15 18 16 17 14 16 ALT 7 - 38 U/L 32 36 49 (H) eGFR- 35 25 40 34 41 57 eGFR-All Other Races . 29 20 33 29 34 47 Triglyceride <150 mg/dL 274 (H) 343 (H) Cholesterol, Total <200 mg/dL 214 (H) 284 (H) HDL Cholesterol >39 mg/dL 52 (L) 52 VLDL Cholesterol <30 mg/dL 55 (H) 69 (H) LDL Cholesterol <100 mg/dL 107 163 (H) Fasting Time hrs 12 2 TC:HDL Ratio <5.10 4.12 5.46 (H) LDL:HDL Ratio <2.54 2.06 3.13 (H) Non HDL Cholesterol <130 mg/dL 162 (H) 232 (H) Hemoglobin A1C 4.3 - 5.6 % 8.6 (H) 9.6 (H) 7.1 (H) 8.4 (H) 8.4 (H) 5.8 (H) Estimated Average Glucose mg/dL 200 229 157 194 194 120 ASSESSMENT AND PLAN: Encounter Diagnosis ICD-10-CM 1. Type 2 DM with CKD stage 3 and hypertension (HCC) E11.22 BASIC METABOLIC PNL I12.9 LIPID PANEL BASIC N18.3 2. Vitamin D deficiency E55.9 VITAMIN D 25 HYDROXY 3. Acquired hypothyroidism E03.9 TSH BLD T4 FREE/FREE THYROX 4. Gastroesophageal reflux disease without esophagitis K21.9 Omeprazole 40 mg capsule 5. Anxiety F41.9 clonazePAM (KLONOPIN) 1 mg tablet 6. Psychophysiological insomnia F51.04 clonazePAM (KLONOPIN) 1 mg tablet 7. Abdominal pannus E65 Britney helping for stomach and fluid retention Also taking iron. Neuropathy resolved. No longer needs gabapentin. Still with anxiety, especially since asked for a dissolution. He no longer wants to take care of her, even financially, according to patient. She states she does not want to do that so he will have to divorce her. She does have a restoration home but same restoration as his. Encouraged her to talk to her polysom tech. Consider counseling even if he sees no point in it because he does not even want to try to work on their marriage at this point. She thinks he is stressed because is also taking care of his mother who is in failing health too. Will okay continued clonazepam at night but recommend slowly tapering to lowest dose needed if not off eventually. Above issues addressed with patient. Patient involved in shared decision making for management of medical issues. History and medications reviewed. Epic updated as needed Refills taken care of and meds adjusted as indicated after reviewed history, exam and labs. Health Maintenance reviewed. Updated record and/or ordered tests as recorded. Encouraged on efforts at healthy diet and regular exercise and adequate sleep. Needs to keep working on diet and exercise with lifestyle changes for effective weight loss as well as control of DM, and control of BP and lipids. HgA1C much improved and back into normal range again. Monitor for frequent hypoglycemia. Adjust meds if needed. BP much improved on recheck even if still above ideal goal <130/80. Continue present management. Further evaluation and treatment as indicated. Labs as above. Further evaluation and treatment as indicated. hard to tell whether or not euthyroid at this time since some depression symptoms with stressors, issues with fatigue non specific, etc. She asked about abdominal pannus issue since is causing pain now. Told her to check with her insurance who is covered. Get back to me so can make referral. The large pannus causing pain is keeping her from being able to walk more to help with her efforts at weight loss. Discussed that she will most likely need to lose some weight in order to qualify for panniculectomy, so encouraged on efforts at further weight loss with cutting back on total calories and staying as active as able. Chair exercises at least. Further evaluation and treatment as indicated. The majority of the visit was spent counseling and/or coordinating care for the patient. Weft-la-kgnw time was at least 25 minutes. MD Livia Mas MD 08/12/2018 12:10 PM Addendum Okay to take clonazepam 1 pill daily for now then work on titrating down to half pill as able. Warm and cold compresses for the hematoma on bottom. Okay lidocaine asper creme for the sores. Check with insurance which plastic surgeon is covered for abdominal panniculectomy (to remove the excess abdominal skin and fat) that is causing pain from swelling, etc. Referring Provider: SELF [[id number]] Allergies As of Date: 08/12/2018 Noted Allergy Reaction environmental [Other] 07/14/2005 2 - Rash 3 - Cough VITAMIN K 07/14/2005 7 - Swelling CHOLESTYRAMINE 03/31/2013 14 - Other: See Comments Comments: constipation IBUPROFEN 06/29/2009 6 - Diarrhea MACROBID (NITROFURANTOIN MONOHYD/*12/06/2010 2 - Rash Comments: states that broke out all over with rash last time was given this in September 2010 peroxide [Other] 07/14/2005 5 - Intolerance SULFA (SULFONAMIDE ANTIBIOTICS) 02/05/2013 2 - Rash TYLENOL (ACETAMINOPHEN) 03/17/2014 11 - Vomiting Comments: Nausea Date Reviewed: 08/12/2018 Reviewed by: Venecia Avila LPN - Fully Assessed Reason for Visit: Recheck [92] Cmt: Follow up Primary Visit Diagnosis:Type 2 DM with CKD stage 3 and hypertension (HCC) [E11.22, I12.9, N18.3] Other Visit Diagnoses:Vitamin D deficiency [E55.9] Acquired hypothyroidism [E03.9] Gastroesophageal reflux disease without esophagitis [K21.9] Anxiety [F41.9] Psychophysiological insomnia [F51.04] Abdominal pannus [E65] Order(s):BASIC METABOLIC PNL [SQBMP] Order #: [id number] STANDING LIPID PANEL BASIC [SQLIPB] Order #: [id number] FUTURE VITAMIN D 25 HYDROXY [SQVITD] Order #: [id number] FUTURE TSH BLD [SQTSH] Order #: [id number] FUTURE T4 FREE/FREE THYROX [SQFT4] Order #: [id number] FUTURE Omeprazole 40 mg capsuleTake 1 capsule by mouth once daily.Disp: 90 capsuleRfl: 3 clonazePAM (KLONOPIN) 1 mg tabletTake 0.5-1 tablets by mouth daily at bedtime for 90 days.Disp: 30 tabletRfl: 1 Prescriptions as of 08/12/2018 Sig: OMEPRAZOLE 40 MG CAPSULE,LALITO* Take 1 capsule by mouth once * ALPHA LIPOIC ACID 600 MG CAPS* Take 1 capsule by mouth twice* PEN NEEDLE, DIABETIC 31 GAUGE* Use with insulin pens 5 times* TOPIRAMATE 50 MG TABLET Take 1 tablet by mouth three * ROPINIROLE 1 MG TABLET Take 1 tablet by mouth four t* INSULIN GLARGINE (U-100) 100 * Inject 10 Units subcutaneousl* INSULIN LISPRO (U-100) 100 UN* Inject 10 Units subcutaneousl* LORATADINE 10 MG TABLET Take 1 tablet by mouth once d* VERAPAMIL 40 MG TABLET Take 1 tablet by mouth three * ATORVASTATIN 10 MG TABLET Take 1 tablet by mouth daily * DICYCLOMINE 10 MG CAPSULE Take 1 capsule by mouth four * LEVOTHYROXINE 100 MCG TABLET Take 1 tablet by mouth daily * BLOOD SUGAR DIAGNOSTIC STRIPS Test blood sugar 4 x daily. D* ADALIMUMAB 40 MG/0.8 ML SUBCU* Inject 40 mg subcutaneously o* NYSTATIN 100,000 UNIT/ML ORAL* 1 tsp swish and swallow until* FLUTICASONE 50 MCG/ACTUATION * Use 1-2 Sprays in each nostri* FLUTICASONE 200 MCG-VILANTERO* Inhale 1 Inhalation as instru* ALBUTEROL SULFATE HFA 90 MCG/* Inhale 2 Puffs as instructed * TRIAMCINOLONE ACETONIDE 0.1 %* Apply 1 application to affect* PEN NEEDLE, DIABETIC 31 GAUGE* Inject 1 Each subcutaneously * WARFARIN 7.5 MG TABLET Take 1 tablet by mouth daily * WARFARIN 5 MG TABLET Take 1 tablet by mouth once d* VITAMIN E 400 UNIT CAPSULE Take 2 capsules by mouth once* COMPOUNDED PRESCRIPTION SHOWER CHAIR WITH BACK D* COMPOUNDED PRESCRIPTION SUCTION STYLE GRAB BAR FOR SH* ALBUTEROL SULFATE HFA 90 MCG/* Inhale 2 Puffs as instructed * COUMADIN 1 MG TABLET take 5mg daily except for Sun* QUETIAPINE 25 MG TABLET Take 1 tablet by mouth twice * ALBUTEROL SULFATE 2.5 MG/3 ML* Use 3 mL via nebulizer every * BLOOD PRESSURE TEST KIT-WRIST* Use to check blood pressure o* HYDROXYCHLOROQUINE 200 MG TAB* Take 1 tablet by mouth once d* YASMINE-MAG ORAL Take by mouth. NYSTATIN 100,000 UNIT/GRAM TO* Apply 1 application to affect* ESCITALOPRAM 20 MG TABLET Take 1 tablet by mouth once d* COMPOUNDED PRESCRIPTION Morphine 15 mg per pump fille* LACTOBACILLUS ACIDOPHILUS 10 * Take 2 tablets by mouth daily* COMPOUNDED PRESCRIPTION Decrease BiPAP settings to 11* MISCELLANEOUS MEDICAL SUPPLY * CUSTOM JOBST KNEE HI KIRSTY* KETOCONAZOLE 2 % TOPICAL CREAM Apply 1 application to affect* CLONAZEPAM 1 MG TABLET Take 0.5-1 tablets by mouth d* ENOXAPARIN 40 MG/0.4 ML SUBCU* 40 mg subcutaneous every 12 h* MELATONIN 1 MG TABLET Take 1 tablet by mouth daily * Patient not taking: Reported on 08/12/2018 ONDANSETRON HCL 4 MG TABLET Take 1 tablet by mouth every * Patient not taking: Reported on 08/12/2018 CETIRIZINE 10 MG CAPSULE Take by mouth daily at bedtim* BENZONATATE 200 MG CAPSULE Take 1 capsule by mouth three* Patient not taking: Reported on 08/12/2018 LISINOPRIL 2.5 MG TABLET TAKE 1 TABLET BY MOUTH EVERY * Patient not taking: Reported on 08/12/2018 CHOLECALCIFEROL (VITAMIN D3) * Take 1 tablet by mouth once d* Patient not taking: Reported on 08/12/2018 MULTIVITAMIN WITH MINERALS TA* Take 1 tablet by mouth three * Patient not taking: Reported on 08/12/2018 SUCRALFATE 100 MG/ML ORAL BART* Take 10 mL by mouth four time* Patient not taking: Reported on 08/12/2018 BUDESONIDE-FORMOTEROL HFA 160* Inhale 2 Puffs as instructed * Patient not taking: Reported on 08/12/2018 VITAMIN B COMPLEX TABLET Take 1 tablet by mouth once d* OMEGA-3 FATTY ACIDS-VITAMIN E* Take 1 capsule by mouth three* Problem List As Of Date 08/12/2018 Noted Resolved OTHER LUNG DISEASE NEC [J98.4] Asthma [J45.909] OTHER UNSPEC SLEEP APNEA [G47.30] Dysmetabolic syndrome X [E88.81] 09/11/2011 Fibromyalgia [[id number]] Embolism and thrombosis (HCC) [I74.9] INVALID FOR*05/05/2018 GOITER NOS [E04.9] REFLUX ESOPHAGITIS [K21.0] NAUSEA ALONE [R11.0] ACUTE GASTRITIS W/O HEMORRHAGE [K29.00] INVALID FOR* CONSTIPATION NOS [K59.00] INVALID FOR* More... 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 Obstructive Sleep Apnea [G47.33] INVALID FOR* More... Hypothyroidism [E03.9] INVALID FOR* Exostosis of unspecified site [M89.8X9] INVALID FOR*11/27/2017 Other hammer toe (acquired) [M20.40] INVALID FOR*11/27/2017 Hx of hysterectomy [Z90.710] INVALID FOR* More... Allergic rhinitis [J30.9] More... 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] INVALID FOR* Environmental allergies [Z91.09] INVALID FOR*11/27/2017 Morbid obesity due to excess calories (HCC) [E6* Chronic kidney disease, stage III (moderate) [N*INVALID FOR*11/27/2017 Essential hypertension [I10] INVALID FOR* Nephrolithiasis [N20.0] INVALID FOR* Vitamin D deficiency [E55.9] INVALID FOR* Rheumatoid arthritis (HCC) [M06.9] INVALID FOR* Bipolar disorder, unspecified [F31.9] INVALID FOR* Alopecia, unspecified [L65.9] INVALID FOR*11/27/2017 Personal history of pulmonary embolism [Z86.711]INVALID FOR* Irritable bowel syndrome [K58.9] INVALID FOR* Neuropathy [G62.9] INVALID FOR* Incisional hernia [K43.2] INVALID FOR* Polycythemia, secondary [D75.1] INVALID FOR* Anticoagulated on Coumadin [Z51.81, Z79.01] INVALID FOR* STACY treated with BiPAP [G47.33] More... Type 2 DM with CKD stage 3 and hypertension (HC*INVALID FOR* Polypharmacy [Z79.899] INVALID FOR* Noncompliance with treatment [Z91.19] INVALID FOR* CKD (chronic kidney disease) stage 4, GFR 15-29*INVALID FOR*08/26/2017 Nonallergic rhinitis [J31.0] INVALID FOR* History of deep vein thrombosis [Z86.718] INVALID FOR* Hypoxemia [R09.02] INVALID FOR* More... Acute kidney injury superimposed on chronic kid*INVALID FOR* Metabolic encephalopathy [G93.41] INVALID FOR* Hyperkalemia [E87.5] INVALID FOR* Other instructions from your clinician: Okay to take clonazepam 1 pill daily for now then work on titrating down to half pill as able. Warm and cold compresses for the hematoma on bottom. Okay lidocaine asper creme for the sores. Check with insurance which plastic surgeon is covered for abdominal panniculectomy (to remove the excess abdominal skin and fat) that is causing pain from swelling, etc. Prescriptions ordered this encounter Disp Refills Start End OMEPRAZOLE 40 MG CAPSULE,DELAYED REL* 90 c* 3 08/12/2018 Route: ORAL Sig: Take 1 capsule by mouth once daily. CLONAZEPAM 1 MG TABLET 30 t* 1 08/12/2018 11/10/2018 Class: Print RX Route: ORAL Sig: Take 0.5-1 tablets by mouth daily at bedtime for 90 days. Medications Discontinued During This Encounter Omeprazole 40 mg capsule 90 c* 3 07/31/2017 08/12/2018 Route: ORAL Sig: Take 1 capsule by mouth once daily. Disc: Reason for discontinue is not on file. Disposition: Return in about 4 months (around 12/12/2018) for 4 months follow up. Follow-up and Disposition History Recorded Encounter Status:Closed by LIVIA SCOTT MD on 08/21/18 HEMOGLOBIN A1C Collected: 08/09/2018 Status: F Source: [place] 9:57 AM [facility] REPOSITORY TYPE CODE TESTS RESULT OUT OF REFERENCE UNITS RANGE LAB HGBA1C 4.3-5.6 % High Hemoglobin A1c 5.8 LAB HBA0 mg/dL Est. Average Glucose 120 Result Comment: eAG: (Estimated average glucose) is a calculated value from HgbA1c and is players club representative of the average blood glucose level in the last 2-3 month period. Performed By: #### HBA1C #### [facility] [address] [place], [place] [address] CNPTOUTREACH Observed: 07/30/2018 Status: COMPLETED Source: [place] 12:00 AM [facility] REPOSITORY Patient Outreach ([facility]) DEBORA MEYERS ([id number]) 1965 F Date Time Provider Department 07/30/18 LIVIA SCOTT [facility] During your visit today, we recorded the following information about you: Allergies As of Date: 07/30/2018 Noted Allergy Reaction environmental [Other] 07/14/2005 2 - Rash 3 - Cough VITAMIN K 07/14/2005 7 - Swelling CHOLESTYRAMINE 03/31/2013 14 - Other: See Comments Comments: constipation IBUPROFEN 06/29/2009 6 - Diarrhea MACROBID (NITROFURANTOIN MONOHYD/*12/06/2010 2 - Rash Comments: states that broke out all over with rash last time was given this in September 2010 peroxide [Other] 07/14/2005 5 - Intolerance SULFA (SULFONAMIDE ANTIBIOTICS) 02/05/2013 2 - Rash TYLENOL (ACETAMINOPHEN) 03/17/2014 11 - Vomiting Comments: Nausea Date Reviewed: 06/14/2018 Reviewed by: Kristan Ventura Plant Buyer - Fully Assessed Visit Diagnosis:Medication management [Z79.899] Order(s):HGB A1C [VVOOL9T] Order #: [id number] FUTURE Prescriptions as of 07/30/2018 Sig: ALPHA LIPOIC ACID 600 MG CAPS* Take 1 capsule by mouth twice* PEN NEEDLE, DIABETIC 31 GAUGE* Use with insulin pens 5 times* TOPIRAMATE 50 MG TABLET Take 1 tablet by mouth three * ROPINIROLE 1 MG TABLET Take 1 tablet by mouth four t* MELATONIN 1 MG TABLET Take 1 tablet by mouth daily * Patient not taking: Reported on 08/12/2018 INSULIN GLARGINE (U-100) 100 * Inject 10 Units subcutaneousl* INSULIN LISPRO (U-100) 100 UN* Inject 10 Units subcutaneousl* LORATADINE 10 MG TABLET Take 1 tablet by mouth once d* VERAPAMIL 40 MG TABLET Take 1 tablet by mouth three * ATORVASTATIN 10 MG TABLET Take 1 tablet by mouth daily * DICYCLOMINE 10 MG CAPSULE Take 1 capsule by mouth four * ONDANSETRON HCL 4 MG TABLET Take 1 tablet by mouth every * Patient not taking: Reported on 08/12/2018 LEVOTHYROXINE 100 MCG TABLET Take 1 tablet by mouth daily * BLOOD SUGAR DIAGNOSTIC STRIPS Test blood sugar 4 x daily. D* ADALIMUMAB 40 MG/0.8 ML SUBCU* Inject 40 mg subcutaneously o* NYSTATIN 100,000 UNIT/ML ORAL* 1 tsp swish and swallow until* FLUTICASONE 50 MCG/ACTUATION * Use 1-2 Sprays in each nostri* CETIRIZINE 10 MG CAPSULE Take by mouth daily at bedtim* FLUTICASONE 200 MCG-VILANTERO* Inhale 1 Inhalation as instru* ALBUTEROL SULFATE HFA 90 MCG/* Inhale 2 Puffs as instructed * BENZONATATE 200 MG CAPSULE Take 1 capsule by mouth three* Patient not taking: Reported on 08/12/2018 TRIAMCINOLONE ACETONIDE 0.1 %* Apply 1 application to affect* PEN NEEDLE, DIABETIC 31 GAUGE* Inject 1 Each subcutaneously * LISINOPRIL 2.5 MG TABLET TAKE 1 TABLET BY MOUTH EVERY * Patient not taking: Reported on 08/12/2018 CHOLECALCIFEROL (VITAMIN D3) * Take 1 tablet by mouth once d* Patient not taking: Reported on 08/12/2018 WARFARIN 7.5 MG TABLET Take 1 tablet by mouth daily * WARFARIN 5 MG TABLET Take 1 tablet by mouth once d* MULTIVITAMIN WITH MINERALS TA* Take 1 tablet by mouth three * Patient not taking: Reported on 08/12/2018 VITAMIN E 400 UNIT CAPSULE Take 2 capsules by mouth once* SUCRALFATE 100 MG/ML ORAL BART* Take 10 mL by mouth four time* Patient not taking: Reported on 08/12/2018 X OMEPRAZOLE 40 MG CAPSULE,LALITO* Take 1 capsule by mouth once * COMPOUNDED PRESCRIPTION SHOWER CHAIR WITH BACK D* COMPOUNDED PRESCRIPTION SUCTION STYLE GRAB BAR FOR SH* ALBUTEROL SULFATE HFA 90 MCG/* Inhale 2 Puffs as instructed * COUMADIN 1 MG TABLET take 5mg daily except for Sun* QUETIAPINE 25 MG TABLET Take 1 tablet by mouth twice * ALBUTEROL SULFATE 2.5 MG/3 ML* Use 3 mL via nebulizer every * BLOOD PRESSURE TEST KIT-WRIST* Use to check blood pressure o* HYDROXYCHLOROQUINE 200 MG TAB* Take 1 tablet by mouth once d* BUDESONIDE-FORMOTEROL HFA 160* Inhale 2 Puffs as instructed * Patient not taking: Reported on 08/12/2018 YASMINE-MAG ORAL Take by mouth. NYSTATIN 100,000 UNIT/GRAM TO* Apply 1 application to affect* ESCITALOPRAM 20 MG TABLET Take 1 tablet by mouth once d* COMPOUNDED PRESCRIPTION Morphine 15 mg per pump fille* LACTOBACILLUS ACIDOPHILUS 10 * Take 2 tablets by mouth daily* VITAMIN B COMPLEX TABLET Take 1 tablet by mouth once d* COMPOUNDED PRESCRIPTION Decrease BiPAP settings to 11* MISCELLANEOUS MEDICAL SUPPLY * CUSTOM JOBST KNEE HI KIRSTY* KETOCONAZOLE 2 % TOPICAL CREAM Apply 1 application to affect* OMEGA-3 FATTY ACIDS-VITAMIN E* Take 1 capsule by mouth three* Problem List As Of Date 07/30/2018 Noted Resolved OTHER LUNG DISEASE NEC [J98.4] Asthma [J45.909] OTHER UNSPEC SLEEP APNEA [G47.30] Dysmetabolic syndrome X [E88.81] 09/11/2011 Fibromyalgia [[id number]] Embolism and thrombosis (HCC) [I74.9] INVALID FOR*05/05/2018 GOITER NOS [E04.9] REFLUX ESOPHAGITIS [K21.0] NAUSEA ALONE [R11.0] ACUTE GASTRITIS W/O HEMORRHAGE [K29.00] INVALID FOR* CONSTIPATION NOS [K59.00] INVALID FOR* More... 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 Obstructive Sleep Apnea [G47.33] INVALID FOR* More... Hypothyroidism [E03.9] INVALID FOR* Exostosis of unspecified site [M89.8X9] INVALID FOR*11/27/2017 Other hammer toe (acquired) [M20.40] INVALID FOR*11/27/2017 Hx of hysterectomy [Z90.710] INVALID FOR* More... Allergic rhinitis [J30.9] More... 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] INVALID FOR* Environmental allergies [Z91.09] INVALID FOR*11/27/2017 Morbid obesity due to excess calories (HCC) [E6* Chronic kidney disease, stage III (moderate) [N*INVALID FOR*11/27/2017 Essential hypertension [I10] INVALID FOR* Nephrolithiasis [N20.0] INVALID FOR* Vitamin D deficiency [E55.9] INVALID FOR* Rheumatoid arthritis (HCC) [M06.9] INVALID FOR* Bipolar disorder, unspecified [F31.9] INVALID FOR* Alopecia, unspecified [L65.9] INVALID FOR*11/27/2017 Personal history of pulmonary embolism [Z86.711]INVALID FOR* Irritable bowel syndrome [K58.9] INVALID FOR* Neuropathy [G62.9] INVALID FOR* Incisional hernia [K43.2] INVALID FOR* Polycythemia, secondary [D75.1] INVALID FOR* Anticoagulated on Coumadin [Z51.81, Z79.01] INVALID FOR* STACY treated with BiPAP [G47.33] More... Type 2 DM with CKD stage 3 and hypertension (HC*INVALID FOR* Polypharmacy [Z79.899] INVALID FOR* Noncompliance with treatment [Z91.19] INVALID FOR* CKD (chronic kidney disease) stage 4, GFR 15-29*INVALID FOR*08/26/2017 Nonallergic rhinitis [J31.0] INVALID FOR* History of deep vein thrombosis [Z86.718] INVALID FOR* Hypoxemia [R09.02] INVALID FOR* More... Acute kidney injury superimposed on chronic kid*INVALID FOR* Metabolic encephalopathy [G93.41] INVALID FOR* Hyperkalemia [E87.5] INVALID FOR* Encounter Status:Closed by [employer], PRODUSER on 08/30/18 PROGRESS Observed: 07/02/2018 Status: COMPLETED Source: [place] 4:45 PM [facility] REPOSITORY O ID: [id number] Author: Sheeba King RN Service: (none) Author Type: (none) Type: Progress Notes Filed: 07/02/2018 4:46 PM Note Text: patient had inr completed at [facility] patients inr is 2.9 (patients inr range is 3.0-4.0) patient is currently taking 7.5mg [place],Thurs,Sat and 5mg all other days patients last dose change was on 06/18/18 due to a low level of 2.8 patient has had no changes in medication and no missed doses and no change in diet Advised patient to continue on the same dose(s) and that they would only be contacted regarding dosage and follow up instructions after review with provider, if a change is needed. Written instructions given and patient verbalized understanding. Presently scheduled in 1 week for follow up INR. per written order by dr scott she agrees with information CBC-COMPLETE BLOOD CNT Collected: 06/28/2018 Status: F Source: RAÚL NO DIFF 10:29 AM [facility] REPOSITORY TYPE CODE TESTS RESULT OUT OF RANGE REFERENCE UNITS LAB L100.1000 4.4-11.0 K/mm3 Low WBC 3.8 LAB L100.1200 4.2-5.4 M/mm3 Low RBC 3.92 LAB L100.1300 12.0-15.0 g/dl Normal HGB 13.0 LAB L100.1400 37-47 % Normal HCT 40.2 LAB L100.1500 81-99 fL High MCV 102.6 LAB L100.1600 27.0-32.0 pg High MCH 33.2 LAB L100.1700 32-36 g/gl Normal MCHC 32.3 LAB L100.1810 11.6-14.6 % High RDW CV 15.5 LAB L100.1820 35.1-43.9 fl High RDW SD 57.3 LAB L100.1900 150-450 K/mm3 Normal PLT 174 LAB L100.2000 6.2-12.0 fl Normal MPV 9.7 Performed By: #### L100.0500 #### [facility] [address] [place], [address] RENAL PROFILE Collected: 06/28/2018 Status: F Source: [place] 10:29 AM [facility] REPOSITORY TYPE CODE TESTS RESULT OUT OF RANGE REFERENCE UNITS LAB L501.0100 74-106 mg/dL High GLU 173 Result Comment: Fasting Glucose result greater than or equal to 126 mg/dL suggests DIABETES MELLITUS per A.D.A. criteria. Please note revised GLUCOSE reference range effective 2017. LAB L501.1000 7-18 mg/dL Normal BUN 17 LAB L501.1100 0.55-1.02 mg/dL High CREAT,SERUM 1.29 Result Comment: The validity of the calculated GFR AND GFRAA in patients over 70 years has not been determined. Clinical correlation is essential. LAB L501.1110 >60 mL/min Low EST GFR 46 Result Comment: Non- GFR Calc LAB L501.1115 >60 mL/min Low EST GFR - AA 56 Result Comment: GFR Calc LAB L501.1300 10-20 RATIO Normal BUN/CRE 13.2 LAB L501.1800 3.2-5.0 g/dL Normal ALB 3.7 LAB L501.2200 8.5-10.1 mg/dL CA Normal 9.2 LAB L501.2300 2.5-4.9 mg/dL Normal PHOS 3.2 LAB L501.5300 136-145 mmol/L NA Normal 144 LAB L501.5600 3.5-5.1 mmol/L K Normal 3.9 LAB L501.5900 98-107 mmol/L High CL 111 LAB L501.6100 21.0-32.0 mmol/L Normal CO2 25.0 Performed By: #### L500.3600 #### [facility] [address] [place], [address] BASIC METABOLIC PANL Collected: 06/28/2018 Status: F Source: [place] 10:09 AM [facility] REPOSITORY TYPE CODE TESTS RESULT OUT OF REFERENCE UNITS RANGE LAB GLU 74-99 mg/dL High Glucose 174 Result Comment: The [place] [employer] (ADA) provides guidance for cutoff values for fasting glucose and random glucose. The ADA defines fasting as no caloric intake for at least 8 hours. Fas ting plasma glucose results between 100 to 125 mg/dL indicate increased risk for diabetes (prediabetes). Fasting plasma glucose results greater than or equal to 126 mg/dL meet the criteria for diagnosis of diabetes. In the absence of unequivocal hyperglycemia, results should be confirmed by repeat testing. In a patient with classic symptoms of hyperglycemia or hyperglycemic crisis, random plasma glucose results greater than or equal to 200 mg/dL meet the criteria for diagnosis of diabetes. Reference: Standards of Medical Care in Diabetes 2016, [place] [employer] Association. Diabetes Care. 2016.39(Suppl 1). LAB BUN 7-21 mg/dL BUN 17 LAB CRET 0.58-0.96 mg/dL Creatinine High 1.20 LAB NA 136-144 mmol/L Sodium 143 LAB K 3.7-5.1 mmol/L Potassium 4.1 LAB CL 97-105 mmol/L Chloride High 107 LAB CO2 22-30 mmol/L Low CO2 20 LAB AGAP 9-18 mmol/L Anion Gap 16 LAB CA 8.5-10.2 mg/dL Calcium, Total 9.8 LAB GFRAA eGFR- Amer. 57 LAB GFRNAA . eGFR-All Other Races 47 Result Comment: eGFR (Estimated GFR) Units of measure: mL/min/1.73 meters squared eGFR is derived from the reexpressed MDRD Study equation using the following parameters: serum creatinine, age, gender and race. The creatinine assay has been calibrated to be traceable to IDMS. An eGFR <60 mL/min/1.73m2 for >3 months is consistent with chronic kidney disease. Refer to KDOQI guidelines for clinical interpretation. In patients with unstable renal function, e.g. those with acute kidney injury, the eGFR may not accurately reflect actual GFR. Performed By: #### BMP #### [facility] [address] [place], [place] [address] PROGRESS Observed: 06/26/2018 Status: COMPLETED Source: [place] 9:56 AM [facility] REPOSITORY HNO ID: [id number] Author: Veda Molina LPN Service: (none) Author Type: (none) Type: Progress Notes Filed: 06/26/2018 9:57 AM Note Text: Pt notified of no changes in Coumadin dosing and recheck in 4 weeks-pt states she gets it check weekly. Has an appt scheduled. Veda Molina LPN PROGRESS Observed: 06/26/2018 Status: COMPLETED Source: [place] 9:55 AM [facility] REPOSITORY HNO ID: [id number] Author: Veda Molina LPN Service: (none) Author Type: (none) Type: Progress Notes Filed: 06/26/2018 9:57 AM Note Text: This note was created using [email or web address]. Subjective Debora Meyers is a 53 year old female. Review of Systems Objective There were no vitals taken for this visit. Physical Exam Assessment and Plan PROGRESS Observed: 06/25/2018 Status: COMPLETED Source: [place] 2:57 PM [facility] REPOSITORY HNO ID: [id number] Author: Sheeba King RN Service: (none) Author Type: (none) Type: Progress Notes Filed: 06/25/2018 2:58 PM Note Text: patient had inr completed at [facility] patients inr is 3.0 (patients inr range is 3.0-4.0) patient is currently taking 7.5mg Tues,Thurs,Sat and 5mg all other days patients last dose change was on 06/18/18 due to a low level of 2.8 (dose at that time was 7.5mg Tues,Thurs and 5mg all other days) patient has had no changes in medication and no missed doses and no change in diet Advised patient to continue on the same dose(s) and that they would only be contacted regarding dosage and follow up instructions after review with provider, if a change is needed. Written instructions given and patient verbalized understanding. Presently scheduled in 1 week (07/02/18 - per pt request) for follow up INR. PROGRESS Observed: 06/18/2018 Status: COMPLETED Source: [place] 4:33 PM [facility] REPOSITORY HNO ID: [id number] Author: Sheeba King RN Service: (none) Author Type: (none) Type: Progress Notes Filed: 06/18/2018 4:33 PM Note Text: per written order by dr scott patient is to take 7.5mg Tues,Thurs,Sat and 5mg all other days PATIENT NOTIFIED OF INFORMATION PROGRESS Observed: 06/18/2018 Status: COMPLETED Source: [place] 3:51 PM [facility] REPOSIT[facility] HNO ID: [id number] Author: Sheeba King RN Service: (none) Author Type: (none) Type: Progress Notes Filed: 06/18/2018 3:52 PM Note Text: patient had inr completed at [facility] patients inr is 2.8 (patients inr range is 3.0-4.0) patient is currently taking 7.5mg Tues,Thurs and 5mg all other days patients last dose change was on 06/04/18 due to a low level of 2.1 (dose at that time was 7.5mg Thurs and 5mg all other days) patient has had no changes in medication except for coumadin and no missed doses and no change in diet Advised patient that they would be contacted regarding medication dose and when to follow up after information is reviewed by provider. After provider review please contact the patient with information and schedule follow up appointment with coumadin clinic. NEISHA- patient has been scheduled for a 1 week follow up inr PROGRESS Observed: 06/14/2018 Status: COMPLETED Source: [place] 9:43 AM [facility] REPOSIT[facility] HNO ID: [id number] Author: Trish Ramírez (Cns) Service: (none) Author Type: Nurse Specialist Type: Progress Notes Filed: 06/14/2018 12:04 PM Note Text: Note Initial contact with patient post discharge, spoke to Arsenio/. Patient identified by name and . ? SUMMARY: -Pt discharged from [facility] on 06/11/2018. -Follow up appointment on 06/14/2018 w/AUTO DAMAGE APPRAISER. -Medication review done. -Admitted for: Elevated potassium level, dehydration. ? CONCERNS: Patient continue to have loose stool, 8-9x since last evening, no cramping but has sensation to push out stool, no vomiting, c/o nausea. [facility] hospitalist d/d Lomotil AND Zofran. Patient asking PCP if she can take. ? NEW MEDICATIONS: Lantus 10 units twice daily; Humalog 10 units at meals, three times daily; Vitamin D3 1,000 units once daily, Calcium/Magnesium x3 daily ? MEDS HELD/DISCONTINUED: Clonazepam, Lomotil, Zofran, Klor-con, Lovenox, Zyrtec, Gabapentin, Lasix, Lisinopril, Multivitamin, Vitamin E, Carafate, Albuterol Nebulizer, Symbicort, Fish Oil, Trazodone. ? ? Transitional Care Management Progress Note The patients TCM visit was performed within the 3 days of discharge. Patient's Date of discharge: 06/11/18 Date of initial coordinator contact after discharge: 06/12/18 Discharge diagnosis: Elevated potassium level, dehydration. Medication review completed Yes Provider Documentation: In follow-up of hospitalization, Debora Meyers is a 53 year old female with the chief complaint of acute kidney injury on chronic kidney disease stage III attributed to dehydration from altered mental status secondary to multiple sedating medications at home, metabolic encephalopathy secondary to renal failure with concomitant use of sedating medications for pain, hyperkalemia, type 2 diabetes, hypertension, depression, chronic pain syndrome secondary to fibromyalgia chronic back pain and arthritis I have reviewed the patient?s last hospital course including diagnostic testing performed during this hospitalization, their discharge medications, and my assessment and plan with the patient and any family members present at today?s visit. Transitional Care Management Progress Note Provider Documentation: HPI: She presented to emergency department being brought in by another person due to change in mental status with increased somnolence. Blood pressure was initially low but she responded to fluid administration. Pulse ox 90% on 3 L nasal cannula. Workup included a chest x-ray which showed no acute process, CT of the brain showed no acute process, white count was normal. Potassium was elevated at 5.9. Anion gap was 14, BUN was elevated at 80 and creatinine was elevated at 5.9. She was admitted for acute mental status change and acute kidney injury on chronic kidney disease thought to be secondary to dehydration. She been taking multiple sedating medications at home for pain. Results was overmedicated and had a metabolic encephalopathy. She was treated with IV fluids. She was evaluated by nephrology during her admission. Labs and blood sugars were monitored during her admission. Her mental status improved during her admission. During her hospitalization was that she was only taking Tylenol for pain and did not ask for anything stronger than Tylenol. She was seen by PT and OT. Her condition continued to improve and she was felt to be stable for discharge home. Her has some doubts about discharge to home and was inclined to have her go to care home or skilled care. This was declined by the patient. Providers did not feel she needed rehabilitation. Pain management doctor was made aware of her issues. Renal function improved during admission. IV fluids were stopped by nephrology once creatinine had corrected to her baseline values. Lab results at discharge: Glucose 176 BUN 35 creatinine 1.45?improved from 5.9 on arrival BUN 35 improved from 80 on arrival, albumin 2.5 calcium 9.3 phosphorus 1.7. Presents today feeling improved. Requests trazodone today, was discontinued in hospital She has discontinued klonopin. Reports lesions on her buttocks following admission, declines exam to check today IV infiltation left hand - is red swollen warm. No streaking no arm pain or arm swelling Reports decreased insulin dosing at discharge. Limited fluid intake. Aircraft Time Clerk: Dr. Farias, seen while in hospital, no follow up scheduled Psychiatry/Psychology: Dr. Alden alarcon, is changing provider at [facility]. PAST MEDICAL HISTORY: Reviewed and updated ALLERGIES: Reviewed and updated MEDICATIONS: Reviewed and updated SOCIAL HISTORY: Reviewed and updated FAMILY HISTORY: Reviewed and updated REVIEW OF SYSTEMS: Review of Systems: GENERAL: No weight loss, malaise or fevers. RESPIRATORY: Negative for cough, hemoptysis, wheezing, COPD, dyspnea or shortness of breath CARDIOVASCULAR: Negative for chest pain, leg swelling, hypertension, CHF or palpitations GI: Positive for diarrhea - loose stools, IBD history, nausea intermittent ENDOCRINE: Negative for cold or heat intolerance, polyuria or polydipsia., See HPI NEURO: No history of headaches, syncope, paralysis, seizures or tremors All other systems reviewed and negative, other than HPI. PHYSICAL EXAMINATION BP 160/100 Pulse 102 Temp (Src) 98.8 (Temporal Artery) Resp 16 Wt 274 lb (124.3kg) SpO2 96% General appearance: Obese, alert and in no acute distress Lungs: Lungs clear to auscultation. No wheezing, rhonchi, rales Heart: RRR without murmur, gallop, or rubs. No ectopy Abdomen: Abdomen soft, non-tender. Bowel sounds normal. No masses, organomegaly Extremities: No deformities, edema, skin discoloration, clubbing or cyanosis. Good capillary refill. , Extremities normal. No deformities, edema, or skin discoloration. Good capillary refill. 1. I have reviewed the patient record including associated test results during the last hospitalization Yes 2. I have reviewed Lab test Yes 3. I have reviewed Radiology test Yes 4. I reviewed assessment/plan with the patient/family member Yes IMPRESSION: Acute kidney injury on chronic kidney disease stage III attributed to dehydration from altered mental status secondary to multiple sedating medications at home, Metabolic encephalopathy secondary to renal failure with concomitant use of sedating medications for pain, Hyperkalemia, Type 2 diabetes, Hypertension, Depression, Chronic pain syndrome secondary to fibromyalgia chronic back pain and arthritis ASSESSMENT/PLAN: Avoidance of sedating medications will be west to prevent recurrence. 1. Acute kidney injury superimposed on chronic kidney disease (HCC) - ICD9: 866.00, 585.9, ICD10: N17.9, N18.9 (primary diagnosis) - BASIC METABOLIC PNL - CONSULT TO NEPHROLOGY 2. Metabolic encephalopathy - ICD9: 348.31, ICD10: G93.41 3. Hyperkalemia - ICD9: 276.7, ICD10: E87.5 - BASIC METABOLIC PNL - CONSULT TO NEPHROLOGY 4. Type 2 DM with CKD stage 3 and hypertension (HCC) - ICD9: 250.40, 403.90, 585.3, ICD10: E11.22, I12.9, N18.3 - Continue current medication(s) - Recommended regular aerobic exercise. - Recommend home blood pressure monitoring, to bring results in on next visit - Goal of BP <130/80 poorly controlled - Continue current medications - INSULIN LISPRO (U-100) 100 UNIT/ML SUBCUTANEOUS PEN Hemoglobin A1C (%) Date Value 04/12/2018 8.4 5. IV infiltrate, subsequent encounter - ICD9: V58.89, 999.9, ICD10: T80.1XXD Warm, red swollen Discussed warm compresses to treat State buttocks lesions but declines exam Recommend topical bacitracin but she declines, can try alternate topical treatment - CEPHALEXIN 500 MG CAPSULE Advised: Make sure has an appt with counseling center Try melatonin at bedtime for sleep along with lifestyle measures Try imodium for loose stools Take Kelfex twice daily with food Check labs in 1-2 weeks Make an appointment with Dr. Farias, agency director within the next month or so Trish Ramírez APRN.CNS June 14, 2018 9:58 AM [facility] Observed: 06/14/2018 Status: COMPLETED Source: [place] 9:40 AM [facility] REPOSIT[facility] Office Visit (INTMWS) DEBORA MEYERS ([id number]) 1965 F Date Time Provider Department 06/14/18 9:40 AM TRISH RAMÍREZ (KHALIF) INTMWS During your visit today, we recorded the following information about you: Temperature Pulse Respiration Blood pressure 98.8 degrees 102/minute 16/minute 160/100 Weight 124.3 kg Trish Ramírez APRN.CNS 06/14/2018 12:04 PM Signed Note Initial contact with patient post discharge, spoke to Arsenio/. Patient identified by name and . ? SUMMARY: -Pt discharged from [facility] on 06/11/2018. -Follow up appointment on 06/14/2018 w/AUTO DAMAGE APPRAISER. -Medication review done. -Admitted for: Elevated potassium level, dehydration. ? CONCERNS: Patient continue to have loose stool, 8-9x since last evening, no cramping but has sensation to push out stool, no vomiting, c/o nausea. [facility] hospitalist d/d Lomotil AND Zofran. Patient asking PCP if she can take. ? NEW MEDICATIONS: Lantus 10 units twice daily; Humalog 10 units at meals, three times daily; Vitamin D3 1,000 units once daily, Calcium/Magnesium x3 daily ? MEDS HELD/DISCONTINUED: Clonazepam, Lomotil, Zofran, Klor-con, Lovenox, Zyrtec, Gabapentin, Lasix, Lisinopril, Multivitamin, Vitamin E, Carafate, Albuterol Nebulizer, Symbicort, Fish Oil, Trazodone. ? ? Transitional Care Management Progress Note The patients TCM visit was performed within the 3 days of discharge. Patient's Date of discharge: 06/11/18 Date of initial coordinator contact after discharge: 06/12/18 Discharge diagnosis: Elevated potassium level, dehydration. Medication review completed Yes Provider Documentation: In follow-up of hospitalization, Debora Meyers is a 53 year old female with the chief complaint of acute kidney injury on chronic kidney disease stage III attributed to dehydration from altered mental status secondary to multiple sedating medications at home, metabolic encephalopathy secondary to renal failure with concomitant use of sedating medications for pain, hyperkalemia, type 2 diabetes, hypertension, depression, chronic pain syndrome secondary to fibromyalgia chronic back pain and arthritis I have reviewed the patient?s last hospital course including diagnostic testing performed during this hospitalization, their discharge medications, and my assessment and plan with the patient and any family members present at today?s visit. Transitional Care Management Progress Note Provider Documentation: HPI: She presented to emergency department being brought in by another person due to change in mental status with increased somnolence. Blood pressure was initially low but she responded to fluid administration. Pulse ox 90% on 3 L nasal cannula. Workup included a chest x-ray which showed no acute process, CT of the brain showed no acute process, white count was normal. Potassium was elevated at 5.9. Anion gap was 14, BUN was elevated at 80 and creatinine was elevated at 5.9. She was admitted for acute mental status change and acute kidney injury on chronic kidney disease thought to be secondary to dehydration. She been taking multiple sedating medications at home for pain. Results was overmedicated and had a metabolic encephalopathy. She was treated with IV fluids. She was evaluated by nephrology during her admission. Labs and blood sugars were monitored during her admission. Her mental status improved during her admission. During her hospitalization was that she was only taking Tylenol for pain and did not ask for anything stronger than Tylenol. She was seen by PT and OT. Her condition continued to improve and she was felt to be stable for discharge home. Her has some doubts about discharge to home and was inclined to have her go to care home or skilled care. This was declined by the patient. Providers did not feel she needed rehabilitation. Pain management doctor was made aware of her issues. Renal function improved during admission. IV fluids were stopped by nephrology once creatinine had corrected to her baseline values. Lab results at discharge: Glucose 176 BUN 35 creatinine 1.45?improved from 5.9 on arrival BUN 35 improved from 80 on arrival, albumin 2.5 calcium 9.3 phosphorus 1.7. Presents today feeling improved. Requests trazodone today, was discontinued in hospital She has discontinued klonopin. Reports lesions on her buttocks following admission, declines exam to check today IV infiltation left hand - is red swollen warm. No streaking no arm pain or arm swelling Reports decreased insulin dosing at discharge. Limited fluid intake. Aircraft Time Clerk: Dr. Farias, seen while in hospital, no follow up scheduled Psychiatry/Psychology: Dr. Alden alarcon, is changing provider at [facility]. PAST MEDICAL HISTORY: Reviewed and updated ALLERGIES: Reviewed and updated MEDICATIONS: Reviewed and updated SOCIAL HISTORY: Reviewed and updated FAMILY HISTORY: Reviewed and updated REVIEW OF SYSTEMS: Review of Systems: GENERAL: No weight loss, malaise or fevers. RESPIRATORY: Negative for cough, hemoptysis, wheezing, COPD, dyspnea or shortness of breath CARDIOVASCULAR: Negative for chest pain, leg swelling, hypertension, CHF or palpitations GI: Positive for diarrhea - loose stools, IBD history, nausea intermittent ENDOCRINE: Negative for cold or heat intolerance, polyuria or polydipsia., See HPI NEURO: No history of headaches, syncope, paralysis, seizures or tremors All other systems reviewed and negative, other than HPI. PHYSICAL EXAMINATION BP 160/100 Pulse 102 Temp (Src) 98.8 (Temporal Artery) Resp 16 Wt 274 lb (124.3kg) SpO2 96% General appearance: Obese, alert and in no acute distress Lungs: Lungs clear to auscultation. No wheezing, rhonchi, rales Heart: RRR without murmur, gallop, or rubs. No ectopy Abdomen: Abdomen soft, non-tender. Bowel sounds normal. No masses, organomegaly Extremities: No deformities, edema, skin discoloration, clubbing or cyanosis. Good capillary refill. , Extremities normal. No deformities, edema, or skin discoloration. Good capillary refill. 1. I have reviewed the patient record including associated test results during the last hospitalization Yes 2. I have reviewed Lab test Yes 3. I have reviewed Radiology test Yes 4. I reviewed assessment/plan with the patient/family member Yes IMPRESSION: Acute kidney injury on chronic kidney disease stage III attributed to dehydration from altered mental status secondary to multiple sedating medications at home, Metabolic encephalopathy secondary to renal failure with concomitant use of sedating medications for pain, Hyperkalemia, Type 2 diabetes, Hypertension, Depression, Chronic pain syndrome secondary to fibromyalgia chronic back pain and arthritis ASSESSMENT/PLAN: Avoidance of sedating medications will be west to prevent recurrence. 1. Acute kidney injury superimposed on chronic kidney disease (HCC) - ICD9: 866.00, 585.9, ICD10: N17.9, N18.9 (primary diagnosis) - BASIC METABOLIC PNL - CONSULT TO NEPHROLOGY 2. Metabolic encephalopathy - ICD9: 348.31, ICD10: G93.41 3. Hyperkalemia - ICD9: 276.7, ICD10: E87.5 - BASIC METABOLIC PNL - CONSULT TO NEPHROLOGY 4. Type 2 DM with CKD stage 3 and hypertension (HCC) - ICD9: 250.40, 403.90, 585.3, ICD10: E11.22, I12.9, N18.3 - Continue current medication(s) - Recommended regular aerobic exercise. - Recommend home blood pressure monitoring, to bring results in on next visit - Goal of BP <130/80 poorly controlled - Continue current medications - INSULIN LISPRO (U-100) 100 UNIT/ML SUBCUTANEOUS PEN Hemoglobin A1C (%) Date Value 04/12/2018 8.4 5. IV infiltrate, subsequent encounter - ICD9: V58.89, 999.9, ICD10: T80.1XXD Warm, red swollen Discussed warm compresses to treat State buttocks lesions but declines exam Recommend topical bacitracin but she declines, can try alternate topical treatment - CEPHALEXIN 500 MG CAPSULE Advised: Make sure has an appt with counseling center Try melatonin at bedtime for sleep along with lifestyle measures Try imodium for loose stools Take Kelfex twice daily with food Check labs in 1-2 weeks Make an appointment with Dr. Farias, agency director within the next month or so rTish Ramírez APRN.KHALIF June 14, 2018 9:58 AM Trish Ramírez APRN.CNS 06/14/2018 10:31 AM Signed Make sure has an appt with counseling center Try melatonin at bedtime for sleep Try imodium for loose stools Take Kelfex twice daily with food Referring Provider: LIVIA SCOTT [[id number]] Allergies As of Date: 06/14/2018 Noted Allergy Reaction environmental [Other] 07/14/2005 2 - Rash 3 - Cough VITAMIN K 07/14/2005 7 - Swelling CHOLESTYRAMINE 03/31/2013 14 - Other: See Comments Comments: constipation IBUPROFEN 06/29/2009 6 - Diarrhea MACROBID (NITROFURANTOIN MONOHYD/*12/06/2010 2 - Rash Comments: states that broke out all over with rash last time was given this in September 2010 peroxide [Other] 07/14/2005 5 - Intolerance SULFA (SULFONAMIDE ANTIBIOTICS) 02/05/2013 2 - Rash TYLENOL (ACETAMINOPHEN) 03/17/2014 11 - Vomiting Comments: Nausea Date Reviewed: 06/14/2018 Reviewed by: Kristan Ventura Plant Buyer - Fully Assessed Primary Visit Diagnosis:Acute kidney injury superimposed on chronic kidney disease (HCC) [N17.9, N18.9] Other Visit Diagnoses:Metabolic encephalopathy [G93.41] Hyperkalemia [E87.5] Type 2 DM with CKD stage 3 and hypertension (HCC) [E11.22, I12.9, N18.3] IV infiltrate, subsequent encounter [T80.1XXD] Order(s):BASIC METABOLIC PNL [SQBMP] Order #: [id number] FUTURE melatonin 1 mg tabletTake 1 tablet by mouth daily at bedtime.Disp: Rfl: insulin glargine (LANTUS SOLOSTAR U-100 INSULIN) 100 unit/mL (3 mL) inpnInject 10 Units subcutaneously twice daily.Disp: Rfl: insulin lispro (HUMALOG KWIKPEN INSULIN) 100 unit/mL inpnInject 10 Units subcutaneously w MEALS. Three times dailyDisp: 10 PenRfl: 11 cephALEXin (KEFLEX) 500 mg capsuleTake 1 capsule by mouth twice daily for 7 days. Take with foodDisp: 14 capsuleRfl: 0 Prescriptions as of 06/14/2018 Sig: INSULIN GLARGINE (U-100) 100 * Inject 10 Units subcutaneousl* INSULIN LISPRO (U-100) 100 UN* Inject 10 Units subcutaneousl* LORATADINE 10 MG TABLET Take 1 tablet by mouth once d* TOPIRAMATE 50 MG TABLET Take 1 tablet by mouth twice * VERAPAMIL 40 MG TABLET Take 1 tablet by mouth three * ATORVASTATIN 10 MG TABLET Take 1 tablet by mouth daily * DICYCLOMINE 10 MG CAPSULE Take 1 capsule by mouth four * ONDANSETRON HCL 4 MG TABLET Take 1 tablet by mouth every * ROPINIROLE 1 MG TABLET Take 0.5-1 tablets by mouth t* LEVOTHYROXINE 100 MCG TABLET Take 1 tablet by mouth daily * BLOOD SUGAR DIAGNOSTIC STRIPS Test blood sugar 4 x daily. D* ADALIMUMAB 40 MG/0.8 ML SUBCU* Inject 40 mg subcutaneously o* NYSTATIN 100,000 UNIT/ML ORAL* 1 tsp swish and swallow until* FLUTICASONE 50 MCG/ACTUATION * Use 1-2 Sprays in each nostri* POTASSIUM CHLORIDE ER 10 MEQ * Take 1 tablet by mouth twice * ENOXAPARIN 40 MG/0.4 ML SUBCU* 40 mg subcutaneous every 12 h* CETIRIZINE 10 MG CAPSULE Take by mouth daily at bedtim* FLUTICASONE 200 MCG-VILANTERO* Inhale 1 Inhalation as instru* ALBUTEROL SULFATE HFA 90 MCG/* Inhale 2 Puffs as instructed * GABAPENTIN 300 MG CAPSULE Take 1 in the morning, 1 at l* FUROSEMIDE 40 MG TABLET Take 1 tablet by mouth once d* BENZONATATE 200 MG CAPSULE Take 1 capsule by mouth three* TRIAMCINOLONE ACETONIDE 0.1 %* Apply 1 application to affect* PEN NEEDLE, DIABETIC 31 GAUGE* Use with insulin pens 4 times* PEN NEEDLE, DIABETIC 31 GAUGE* Inject 1 Each subcutaneously * LISINOPRIL 2.5 MG TABLET TAKE 1 TABLET BY MOUTH EVERY * CHOLECALCIFEROL (VITAMIN D3) * Take 1 tablet by mouth once d* WARFARIN 7.5 MG TABLET Take 1 tablet by mouth daily * WARFARIN 5 MG TABLET Take 1 tablet by mouth once d* MULTIVITAMIN WITH MINERALS TA* Take 1 tablet by mouth three * VITAMIN E 400 UNIT CAPSULE Take 2 capsules by mouth once* OMEPRAZOLE 40 MG CAPSULE,LALITO* Take 1 capsule by mouth once * SUCRALFATE 100 MG/ML ORAL BART* Take 10 mL by mouth four time* COMPOUNDED PRESCRIPTION SHOWER CHAIR WITH BACK D* COMPOUNDED PRESCRIPTION SUCTION STYLE GRAB BAR FOR SH* ALBUTEROL SULFATE HFA 90 MCG/* Inhale 2 Puffs as instructed * COUMADIN 1 MG TABLET take 5mg daily except for Sun* QUETIAPINE 25 MG TABLET Take 1 tablet by mouth twice * ALBUTEROL SULFATE 2.5 MG/3 ML* Use 3 mL via nebulizer every * BLOOD PRESSURE TEST KIT-WRIST* Use to check blood pressure o* HYDROXYCHLOROQUINE 200 MG TAB* Take 1 tablet by mouth once d* BUDESONIDE-FORMOTEROL HFA 160* Inhale 2 Puffs as instructed * YASMINE-MAG ORAL Take by mouth. NYSTATIN 100,000 UNIT/GRAM TO* Apply 1 application to affect* ESCITALOPRAM 20 MG TABLET Take 1 tablet by mouth once d* COMPOUNDED PRESCRIPTION Morphine 15 mg per pump fille* LACTOBACILLUS ACIDOPHILUS 10 * Take 2 tablets by mouth daily* VITAMIN B COMPLEX TABLET Take 1 tablet by mouth once d* COMPOUNDED PRESCRIPTION Decrease BiPAP settings to 11* MISCELLANEOUS MEDICAL SUPPLY * CUSTOM JOBST KNEE HI KIRSTY* KETOCONAZOLE 2 % TOPICAL CREAM Apply 1 application to affect* OMEGA-3 FATTY ACIDS-VITAMIN E* Take 1 capsule by mouth three* TRAZODONE 100 MG TABLET Take 2 tablets by mouth daily* MELATONIN 1 MG TABLET Take 1 tablet by mouth daily * CEPHALEXIN 500 MG CAPSULE Take 1 capsule by mouth twice* Problem List As Of Date 06/14/2018 Noted Resolved OTHER LUNG DISEASE NEC [J98.4] Asthma [J45.909] OTHER UNSPEC SLEEP APNEA [G47.30] Dysmetabolic syndrome X [E88.81] 09/11/2011 Fibromyalgia [[id number]] Embolism and thrombosis (HCC) [I74.9] INVALID FOR*05/05/2018 GOITER NOS [E04.9] REFLUX ESOPHAGITIS [K21.0] NAUSEA ALONE [R11.0] ACUTE GASTRITIS W/O HEMORRHAGE [K29.00] INVALID FOR* CONSTIPATION NOS [K59.00] INVALID FOR* More... 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 Obstructive Sleep Apnea [G47.33] INVALID FOR* More... Hypothyroidism [E03.9] INVALID FOR* Exostosis of unspecified site [M89.8X9] INVALID FOR*11/27/2017 Other hammer toe (acquired) [M20.40] INVALID FOR*11/27/2017 Hx of hysterectomy [Z90.710] INVALID FOR* More... Allergic rhinitis [J30.9] More... 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] INVALID FOR* Environmental allergies [Z91.09] INVALID FOR*11/27/2017 Morbid obesity due to excess calories (HCC) [E6* Chronic kidney disease, stage III (moderate) [N*INVALID FOR*11/27/2017 Essential hypertension [I10] INVALID FOR* Nephrolithiasis [N20.0] INVALID FOR* Vitamin D deficiency [E55.9] INVALID FOR* Rheumatoid arthritis (HCC) [M06.9] INVALID FOR* Bipolar disorder, unspecified [F31.9] INVALID FOR* Alopecia, unspecified [L65.9] INVALID FOR*11/27/2017 Personal history of pulmonary embolism [Z86.711]INVALID FOR* Irritable bowel syndrome [K58.9] INVALID FOR* Neuropathy [G62.9] INVALID FOR* Incisional hernia [K43.2] INVALID FOR* Polycythemia, secondary [D75.1] INVALID FOR* Anticoagulated on Coumadin [Z51.81, Z79.01] INVALID FOR* STACY treated with BiPAP [G47.33] More... Type 2 DM with CKD stage 3 and hypertension (HC*INVALID FOR* Polypharmacy [Z79.899] INVALID FOR* Noncompliance with treatment [Z91.19] INVALID FOR* CKD (chronic kidney disease) stage 4, GFR 15-29*INVALID FOR*08/26/2017 Nonallergic rhinitis [J31.0] INVALID FOR* History of deep vein thrombosis [Z86.718] INVALID FOR* Hypoxemia [R09.02] INVALID FOR* More... Acute kidney injury superimposed on chronic kid*INVALID FOR* Metabolic encephalopathy [G93.41] INVALID FOR* Hyperkalemia [E87.5] INVALID FOR* Other instructions from your clinician: Make sure has an appt with counseling center Try melatonin at bedtime for sleep Try imodium for loose stools Take Kelfex twice daily with food Prescriptions ordered this encounter Disp Refills Start End MELATONIN 1 MG TABLET 06/14/2018 Class: Med Update Route: ORAL Sig: Take 1 tablet by mouth daily at bedtime. INSULIN GLARGINE (U-100) 100 UNIT/ML* 06/14/2018 Class: Med Update Route: SUBCUTANEOUS Sig: Inject 10 Units subcutaneously twice daily. INSULIN LISPRO (U-100) 100 UNIT/ML S* 10 P* 11 06/14/2018 Class: Med Update Route: SUBCUTANEOUS Sig: Inject 10 Units subcutaneously w MEALS. Three times daily CEPHALEXIN 500 MG CAPSULE 14 c* 0 06/14/2018 06/21/2018 Route: ORAL Sig: Take 1 capsule by mouth twice daily for 7 days. Take with food Medications Discontinued During This Encounter tiZANidine (ZANAFLEX) 4 mg tablet 0 09/05/2016 06/14/2018 Class: Med Update Route: ORAL Sig: Take 1 tablet by mouth every 8 hours as needed (muscle spasms). Dr Wetzel Disc: Reason for discontinue is not on file. oxyCODONE-acetaminophen (PERCOCET) 5* 06/14/2018 Class: Historical Med Route: ORAL Sig: Take 1 tablet by mouth every 4 hours as needed. Disc: Reason for discontinue is not on file. clonazePAM (KLONOPIN) 1 mg tablet 30 t* 2 05/16/2018 06/14/2018 Class: Print RX Route: ORAL Sig: Take 0.5-1 tablets by mouth daily at bedtime for 90 days. Disc: Reason for discontinue is not on file. diphenoxylate-atropine (LOMOTIL) 2.5* 30 t* 2 04/24/2018 06/14/2018 Class: Print RX Route: ORAL Sig: Take 1 tablet by mouth before meals and at bedtime for 90 days. as needed Disc: Reason for discontinue is not on file. insulin glargine (LANTUS SOLOSTAR U-* 04/24/2018 06/14/2018 Class: Med Update Route: SUBCUTANEOUS Sig: Inject 40 Units subcutaneously twice daily. Disc: Reason for discontinue is not on file. insulin lispro (HUMALOG KWIKPEN INSU* 10 P* 11 04/22/2018 06/14/2018 Route: SUBCUTANEOUS Sig: Inject 30 Units subcutaneously w MEALS. Three times daily Disc: Reason for discontinue is not on file. Encounter Status:Closed by TRISH JACKSON on 06/14/18 CONSULTATION Observed: 06/13/2018 Status: F Source: [place] 8:05 PM [facility] REPOSITORY [facility] Medical Records Department [address] [address] [place] [address] Consultation 06/08/18 1529 MR#: [id number] Acct: [id number] Name: DEBORA MEYERS Rep #: [id number] : 1965 53 From: Norma Farias DO PCP: Livia Scott MD Status: DIS IN Y Location: [place] [id number] Consultation - Renal 06/08/18 PCP/ Referring MD: Requesting physician: Dr Early Primary care physician: Livia Scott Reason for Consultation:: NIDA - History of Present Illness History of Present Illness: The patient is a 53 year old F known to me with history of CKD stage 3, DM2,, HTN, chronic depression, Hx PE, DVT on anticoagulation, RA, STACY, morbid obesity presents with confusion, disorientation with renal failure, hyerkalemia. She is on ACEI, diuretics, potassium supplements with history of swelling. Currently appears dry, confused, unable to provide history. Medication list includes gabapentin, serquel, narcotics, muscle relaxer. Baseline creatinine 1.6 on 05/27 increased to 5.9 on admit improved to 3.29 with iv hydration and discontinuation of diuretics, ACEi. She is nonoliguric with dickey bag. No recent iv contrast exposure. BP stable. Potassium improved from 5.9 on admit to 5.3 today. - Allergies Allergies: Allergies hydrogen peroxide Allergy (Verified 02/04/18 15:07) Rash Sulfa (Sulfonamide Antibiotics) Allergy (Verified 02/04/18 15:07) Hives iodine Adverse Reaction (Verified 02/04/18 15:07) burning (topical) vitamin k Allergy (Uncoded 04/08/17 09:57) Swelling/burning around injection site - Current Medications Current Medications: Current Medications Acetaminophen (Tylenol) 650 mg PO Q4H PRN PRN PRN Reason: PAIN Last Admin: 06/08/18 11:35 Dose: 650 mg Albuterol Sulfate (Ventolin Aerosols) 2.5 mg INHALATION Q4H PRN PRN PRN Reason: SOB AND /OR WHEEZING Albuterol Sulfate (Ventolin Aerosols) 2.5 mg INHALATION Q6HWA.RT [facility] Ascorbic Acid (Vitamin C) 500 mg PO DAILY@1200 [facility] Atorvastatin Calcium (Lipitor) 10 mg PO QHS [facility] Budesonide (Pulmicort Aerosol) 0.5 mg INHALATION Q12H.RT [place] Calamine/Phenol (Calmoseptine Ointment) 1 applic TOPICAL TID [facility] PRN Reason: Protocol Cholecalciferol ([facility]itamin D) [facility] Dicyclomine HCl (Bentyl) 10 mg PO 4X/DAY PRN PRN Reason: CRAMPING Escitalopram Oxalate (Lexapro) 20 mg PO DAILY [facility] Last Admin: 06/08/18 08:32 Dose: 20 mg Hydroxychloroquine Sulfate (Plaquenil) 200 mg PO DAILY [facility] Last Admin: 06/08/18 08:32 Dose: 200 mg Sodium Chloride () 1,000 mls @ 150 mls/hr IV .Q6H40M [facility] Last Admin: 06/08/18 05:54 Dose: 150 mls/hr Levothyroxine Sodium (Synthroid) 100 mcg PO DAILY@0600 [facility] Last Admin: 06/08/18 05:56 Dose: 100 mcg Loratadine (Claritin) 10 mg PO QHS [facility] Magnesium Hydroxide (Milk Of Magnesia) 30 ml PO DAILY PRN PRN Reason: Constipation Non-Formulary Medication (Sucralfate [Sucralfate]) 10 ml PO PRN PRN PRN Reason: STOMACH Nutritional Formula (Lactose Free) (Glucerna Shake) 120 ml PO 4X/DAY [facility] Last Admin: 06/08/18 14:29 Dose: 120 ml Nystatin (Mycostatin Powder) 1 applic TOPICAL BID [facility] PRN Reason: Protocol Pantoprazole Sodium (Protonix) 40 mg PO DAILY [facility] Last Admin: 06/08/18 08:32 Dose: 40 mg Polyethylene Glycol (Miralax) 34 gm PO X1 PRN PRN Reason: Bowel Movement Quetiapine Fumarate (Seroquel) 200 mg PO QHS [facility] Quetiapine Fumarate (Seroquel) 25 mg PO BID@0600,1200 [facility] Sodium Chloride () 5 - 30 ml IV UD PRN PRN Reason: SALINE FLUSH Last Admin: 06/08/18 07:57 Dose: 10 ml Topiramate (Topamax) 50 mg PO BID [facility] Last Admin: 06/08/18 08:32 Dose: 50 mg Verapamil HCl (Calan) 40 mg PO TID [facility] Last Admin: 06/08/18 14:29 Dose: 40 mg Vitamin E (Vitamin E) [facility] - Past Medical History Past Medical History (Chronic Problems): Chronic Problems Obesity, morbid, BMI 40.0-49.9 (Chronic) Peripheral neuropathy (Chronic) CKD (chronic kidney disease) stage 3, GFR 30-59 ml/min (Chronic) IBS (irritable bowel syndrome) (Chronic) Fibromyalgia syndrome (Chronic) GERD (gastroesophageal reflux disease) (Chronic) Sleep apnea (Chronic) O2 at night claustrophobic Depression (Chronic) Diverticulosis (Chronic) Chronic back pain (Chronic) Asthma (Chronic) Diabetes (Chronic) - Past Surgical History Surgical History: cholecystectomy, hysterectomy, - - Gastric surgery for acid reflux, pain pump insertion - Social History Smoking Status: Never smoker Alcohol: None Drugs: None - Family History Maternal History Items: No pertinent history, - Review of Systems Constitutional: Reports: Weakness Cardiovascular: Reports: Chest Pain Gastrointestinal: Denies: Diarrhea, Nausea, Vomiting Genitourinary: Denies: Dysuria Neurological: Reports: Confusion Psychiatric: Reports: Anxiety, Depression Unable to obtain accurate/complete ROS d/t: confused, poor historian Patient Problems: Active and Suspected Problems NIDA (acute kidney injury) (Acute) Hyperkalemia (Acute) Altered mental status (Acute) - Physical Exam General: Confused, Disoriented HEENT: PERRLA, EOMI Oral: Dry Mucosa Lungs: Clear to auscultation Cardiovascular: Regular rate Abdomen: Bowel Sounds Present, Soft, Non Tender, Non-Distended Extremities: No edema Musculoskeletal: No Muscle Wasting Neurological: Clonus, - - tremor Psych/Mental Status: Anxious, Depressed, - - confused Vital Signs Temp Pulse Resp BP Pulse Ox 98.1 F 104 H 16 168/69 H 93 06/08/18 10:15 06/08/18 11:15 06/08/18 10:15 06/08/18 10:15 06/08/18 10:15 Oxygen Flow Rate (L/min) 3 Oxygen Delivery Method Nasal Cannula Weight: 134.8 kg Body Mass Index (BMI) 58.0 Intake and Output for Last 24 Hours Intake Total 2053 Output Total 1100 / 1099 Balance -1100 / -1100 -71 / -71 Laboratory Tests Past 24 Hrs PT INR Sodium Potassium Chloride Carbon Dioxide Anion Gap POC Glucose POC Glucose 128 H Clinical Impression(s) from Imaging Studies Clinical Impression(s) from Imaging Studies Brain CT 06/07/18 18:46 IMPRESSION: Chronic involutional changes of the brain. There are no acute findings. Electronically Signed: Chapin Jett MD at 20:23 EDT , Service support , Chest X-Ray 06/07/18 19:00 Renal Ultrasound 06/08/18 12:56 IMPRESSION: Normal ultrasound of the kidneys and urinary bladder. Electronically Signed: Chapin Jett MD at 16:03 EDT , Service support , Assessment/Plan All Active Problems NIDA (acute kidney injury) (Acute) Hyperkalemia (Acute) Altered mental status (Acute) Generalized weakness (Acute) Multiple falls (Acute) Supratherapeutic INR (Resolved) Transaminitis (Resolved) 1. Nida on CKD stage 3 likely from prerenal event from medications, altered mental status with poor oral intake. Continue with ivf. Renal fxn improved from 5.9 to 3.29 today. Baseline creatinine 1.6. No need for dialysis. Currently nonoliguric. Continue to monitor renal fxn 2. Altered mental status, metabolic encephalopathy, tremors multifactoral from dehydration, renal failure, with concomitant use of narcotics/antidepressants/antipsycotics/muscle relaxers/gabapentin. CT head no acute change. 3. Hyerkalemia improving. 4. Chronic Depression 5. Dm2 6. HTN 7. Hx PE/DVT on anticoaguiation 8. Hyponatremia due to volume depletion resolved with iv fluids. 06/13/182004 <Electronically signed by Norma Farias DO> Date Norma Farias DO Cosigner Signature (if applicable): Date CC: Norma Farias DO; Livia Scott MD Signed DISCHARGE SUMMARY Observed: 06/13/2018 Status: F Source: [place] 10:01 AM [facility] REPOSITORY [facility] Medical Records Department [address] [place] [address] Discharge Summary 06/13/18 0956 MR#: [id number] Acct: [id number] Name: DEBORA MEYERS Rep #: [id number] : 1965 53 From: Neeraj Osuna DO PCP: Livia Scott MD Status: DIS IN Y Location: [place] [address] Discharge Date and Diagnosis Date of Admission: 06/07/18 Date of Discharge: 06/11/18 - Primary Discharge Diagnosis #1 acute kidney injury on chronic kidney disease stage III- probably secondary to dehydration from altered mental status secondary to multiple sedating medications at home. #2 metabolic encephalopathy secondary to renal failure with concomitant use of sedating medications for pain- #3 hyperkalemia #4 type 2 diabetes #5 hypertension #6 depression #7 chronic pain syndrome-secondary to fibromyalgia, chronic back pain, arthritis - Secondary Discharge Diagnosis Chronic Problems Obesity, morbid, BMI 40.0-49.9 (Chronic) Peripheral neuropathy (Chronic) CKD (chronic kidney disease) stage 3, GFR 30-59 ml/min (Chronic) IBS (irritable bowel syndrome) (Chronic) Fibromyalgia syndrome (Chronic) GERD (gastroesophageal reflux disease) (Chronic) Sleep apnea (Chronic) O2 at night claustrophobic Depression (Chronic) Diverticulosis (Chronic) Chronic back pain (Chronic) Asthma (Chronic) Diabetes (Chronic) Hospital Course and Treatment Consultations 06/09/18 18:47 Consult: Onc/Wound/income auditor Routine Comment: Reason for Consult:: Blisters to coccyx, assess left hand infiltrate/hematoma/blisters Comments:: L hand NS infiltrate Operations: None Procedures: None Summary of Care Provided: The patient is a 53 year old F urgency room at [facility] after being brought in due to a change in mental status with increased somnolence. Initially patient's blood pressure was low but she responded to fluid administration, pulse ox was 90% on 3 L, workup included a chest x-ray which showed no acute process, CT of the brain showed no acute process, white count was normal, potassium was high at 5.9, anion gap was 14, BUN was elevated at 80 and creatinine was elevated at 5.9. Patient was admitted for acute mental status change and acute kidney injury on chronic kidney disease believed to be secondary to dehydration, patient had been taking multiple sedating medications at home for pain and was felt to be overmedicated and have a metabolic encephalopathy. Patient was given IV fluids, seen by nephrology, and her labs and blood sugars were monitored. Patient's mental status improved, it was noted during her hospitalization that she was only taking Tylenol for pain and did not ask for anything stronger than Tylenol. Patient was seen by PT and OT, she was felt to be stable for discharge home, had some doubts that she was stable for discharge home and was inclined to have the patient go to a care home-patient refused this and I did not feel that the patient actually needed to go to a care home for rehab or further care. I contacted the patient's pain management doctor made him aware of the patient's issues, IV fluids were stopped by nephrology as the patient's creatinine had corrected to her normal value. On 06/11/18, patient was seen and examined felt to be in stable condition for discharge home Discharge Activity: Return to Normal Activity Weight Bearing Status: Full weight bearing Home Medications: Medications to take at Discharge Dicyclomine HCl [Bentyl] 10 mg PO 4X/DAY PRN 06/30/14 Levothyroxine [Synthroid] 100 mcg PO DAILY 06/30/14 Omeprazole [Prilosec] 40 mg PO DAILY 06/30/14 Quetiapine Fumarate [Seroquel] 25 mg PO BID 08/24/14 Lactobacillus Combination No.4 [Probiotic] 2 each PO QHS 10/29/14 Vitamin B Complex 1 each PO DAILY 05/23/16 Warfarin [Coumadin] 7.5 mg PO TUTH 04/08/17 Fluticasone/Vilanterol [Breo Ellipta 200-25 Mcg INH] 1 each IH DAILY 02/04/18 Albuterol Inhaler [Ventolin Hfa] 2 puff INHALATION Q4H PRN PRN 06/07/18 Ascorbic Acid [Vitamin C] 500 mg PO DAILY@1200 06/07/18 Atorvastatin Calcium [Lipitor] 10 mg PO QHS 06/07/18 Biotin 5 mg PO TID 06/07/18 Calcium Magnesium Zinc Vit D3 3 tab PO BID 06/07/18 Cholecalciferol (VIT D3) [Vitamin D3] 1,000 unit PO DAILY 06/07/18 Escitalopram Oxalate [Lexapro] 20 mg PO DAILY 06/07/18 Hydroxychloroquine Sulfate [Plaquenil] 200 mg PO DAILY 06/07/18 Loratadine 10 mg PO DAILY 06/07/18 Quetiapine Fumarate [Seroquel] 200 mg PO QHS 06/07/18 Ropinirole HCl [Requip] 0.5 - 1 mg PO TID 06/07/18 Simvastatin [Zocor] 10 mg PO QHS 06/07/18 Topiramate [Topamax] 50 mg PO BID 06/07/18 Verapamil 40 mg PO TID 06/07/18 Warfarin [Coumadin] 5 mg PO SUMOWEFRSA 06/07/18 Acetaminophen [Tylenol Tablet] 650 mg PO Q4H PRN PRN tablet 06/11/18 Insulin Glargine [Lantus SoloStar Pen] 10 units SC BID #1 pen 06/11/18 Insulin Lispro [Humalog KwikPen] 10 units SQ TIDCM #1 insuln.pen 06/11/18 Loratadine [Claritin] 10 mg PO QHS tablet 06/11/18 Menthol/Lanolin/Calamine/Znox [Calmoseptine Ointment] 1 applic TOPICAL TID tube 06/11/18 Nystatin Powder [Mycostatin Powder] 1 applic TOPICAL BID #1 bottle 06/11/18 Warfarin [Coumadin] 5 mg PO SuMoWeFrSa@1700 tablet 06/11/18 Warfarin [Coumadin] 7.5 mg PO TuTh@1700 tablet 06/11/18 Following Prescrptions Were Given to Patient: Insulin Glargine [Lantus SoloStar Pen] 10 units SC BID #1 pen Nystatin Powder [Mycostatin Powder] 1 applic TOPICAL BID #1 bottle Insulin Lispro [Humalog KwikPen] 10 units SQ TIDCM #1 insuln.pen Primary Care Physician: Livia Scott MD [Primary Care Provider] - Please follow up with your Primary Care Physician in: within 7 days Please Follow Up With: John Wetzel MD When: tomorrow or Thurs this week Disposition: Home Minutes spent on discharge:: 36 Patient Condition:: Stable Medical Necessity - Tobacco Use Smoking Status: Never smoker Meaningful Use Info Meaningful Use Diagnoses (Choose all that apply): None applicable Code Visit Inpatient E AND M: 52689 Disch Hosp 06/13/18 1001 <Electronically signed by Neeraj Osuna DO> Date Neeraj Osuna DO Cosigner Signature (if applicable): Date CC: Livia Scott MD; Neeraj Osuna DO Signed 12 LEAD ELECTROCARDIOGRAM Observed: 06/11/2018 Status: F Source: [place] 1:33 PM [facility] REPOSITORY [facility] Cardiovascular Services [address] [place] [address] 12 Lead EKG 06/07/18 1946 MR#: [id number] Acct: [id number] Name: DEBORA MEYERS Rep #: [id number] : 1965 53 From: Dewayne Olivo MD Attending Dr: Neeraj Osuna DO Status: DIS IN Ordering Dr: Lobo Artis MD Date: 06/07/18 Location: [facility] Sex: F C Admitted: 06/07/18 Test Reason : ALT LOC Blood Pressure : / mmHG Vent. Rate : 082 BPM Atrial Rate : 082 BPM P-R Int : 154 ms QRS Dur : 136 ms QT Int : 390 ms P-R-T Axes : 037 -16 001 degrees QTc Int : 455 ms Normal sinus rhythm Right bundle branch block Abnormal ECG Confirmed by DEWAYNE OLIVO ([id number]), editor newspaper SANTINO CONTRERAS ([id number]) on 06/11/2018 1:33:12 PM Referred By: Cat Donato Confirmed By:DEWAYNE OLIVO 06/11/18 1333 Date Dewayne Olivo MD CC: Lobo Artis MD; Livia Scott MD; Neeraj Osuna DO Signed DISCHARGE INSTRUCTION Observed: 06/11/2018 Status: F Source: [place] 11:37 AM [facility] REPOSITORY [facility] Medical Records Department [address] [place] [address] Instructions for Home/Discharge Instructions 06/11/18 0810 MR#: [id number] Acct: [id number] Name: DEBORA MEYERS Rep #: [id number] : 1965 53 From: Neeraj Osuna DO PCP: Livia Scott MD Status: ADM IN - Discharge Diagnoses Current Active Problems: Current Active and Chronic Problems NIDA (acute kidney injury) (Acute) Hyperkalemia (Acute) Altered mental status (Acute) You will use the following diet at home:: Calorie/Carbohydrate Controlled (specify 1200, 1400, etc) - 1800 yasmine Your food should be the consistency of: Regular Your liquids should be the consistency of: Regular/Thin Discharge Activity: Return to Normal Activity Weight Bearing Status: Full weight bearing Additional Instructions: apply Calmoseptine and stoma powder daily as instructed until buttocks wounds heal Allergies/Adverse Reactions: Allergies hydrogen peroxide Allergy (Verified 02/04/18 15:07) Rash Sulfa (Sulfonamide Antibiotics) Allergy (Verified 02/04/18 15:07) Hives iodine Adverse Reaction (Verified 02/04/18 15:07) burning (topical) vitamin k Allergy (Uncoded 04/08/17 09:57) Swelling/burning around injection site Medications to take at Discharge Dicyclomine HCl [Bentyl] 10 mg PO 4X/DAY PRN 06/30/14 Levothyroxine [Synthroid] 100 mcg PO DAILY 06/30/14 Omeprazole [Prilosec] 40 mg PO DAILY 06/30/14 Quetiapine Fumarate [Seroquel] 25 mg PO BID 08/24/14 Lactobacillus Combination No.4 [Probiotic] 2 each PO QHS 10/29/14 Vitamin B Complex 1 each PO DAILY 05/23/16 Warfarin [Coumadin] 7.5 mg PO TUTH 04/08/17 Fluticasone/Vilanterol [Breo Ellipta 200-25 Mcg INH] 1 each IH DAILY 02/04/18 Albuterol Inhaler [Ventolin Hfa] 2 puff INHALATION Q4H PRN PRN 06/07/18 Ascorbic Acid [Vitamin C] 500 mg PO DAILY@1200 06/07/18 Atorvastatin Calcium [Lipitor] 10 mg PO QHS 06/07/18 Biotin 5 mg PO TID 06/07/18 Calcium Magnesium Zinc Vit D3 3 tab PO BID 06/07/18 Cholecalciferol (VIT D3) [Vitamin D3] 1,000 unit PO DAILY 06/07/18 Escitalopram Oxalate [Lexapro] 20 mg PO DAILY 06/07/18 Hydroxychloroquine Sulfate [Plaquenil] 200 mg PO DAILY 06/07/18 Loratadine 10 mg PO DAILY 06/07/18 Quetiapine Fumarate [Seroquel] 200 mg PO QHS 06/07/18 Ropinirole HCl [Requip] 0.5 - 1 mg PO TID 06/07/18 Simvastatin [Zocor] 10 mg PO QHS 06/07/18 Topiramate [Topamax] 50 mg PO BID 06/07/18 Verapamil 40 mg PO TID 06/07/18 Warfarin [Coumadin] 5 mg PO SUMOWEFRSA 06/07/18 Acetaminophen [Tylenol Tablet] 650 mg PO Q4H PRN PRN tablet 06/11/18 Insulin Glargine [Lantus SoloStar Pen] 10 units SC BID #1 pen 06/11/18 Insulin Lispro [Humalog KwikPen] 10 units SQ TIDCM #1 insuln.pen 06/11/18 Loratadine [Claritin] 10 mg PO QHS tablet 06/11/18 Menthol/Lanolin/Calamine/Znox [Calmoseptine Ointment] 1 applic TOPICAL TID tube 06/11/18 Nystatin Powder [Mycostatin Powder] 1 applic TOPICAL BID #1 bottle 06/11/18 Warfarin [Coumadin] 5 mg PO SuMoWeFrSa@1700 tablet 06/11/18 Warfarin [Coumadin] 7.5 mg PO TuTh@1700 tablet 06/11/18 The following prescriptions were given: Insulin Glargine [Lantus SoloStar Pen] 10 units SC BID #1 pen Nystatin Powder [Mycostatin Powder] 1 applic TOPICAL BID #1 bottle Insulin Lispro [Humalog KwikPen] 10 units SQ TIDCM #1 insuln.pen Primary Care Physician: Livia Scott MD [Primary Care Provider] - Please follow up with your Primary Care Physician in: within 7 days Test Results: Test results from this visit will be discussed in further detail at your follow-up appointment, if applicable. Please Follow Up With: John Wetzel MD When: tomorrow or Thurs this week 06/11/18 1137 <Electronically signed by Neeraj Osuna DO> Date Neeraj Osuna DO CC: Norma Farias DO; Livia Scott MD BEDSIDE GLUCOSE Collected: 06/11/2018 Status: F Source: [place] 11:16 AM [facility] REPOSITORY TYPE CODE TESTS RESULT OUT OF REFERENCE UNITS RANGE LAB L501.080 70-110 mg/dL High BEDSIDE GLU 166 Result Comment: MANAGEMENT OF PATIENT CARE PER NURSING PROTOCOL Performed By: #### L501.080 #### [facility] Laboratory Point of Care [address] [place] [address] RENAL PROFILE Collected: 06/11/2018 Status: F Source: [place] 10:30 AM [facility] REPOSITORY TYPE CODE TESTS RESULT OUT OF RANGE REFERENCE UNITS LAB L501.0100 74-106 mg/dL High GLU 176 Result Comment: Fasting Glucose result greater than or equal to 126 mg/dL suggests DIABETES MELLITUS per A.D.A. criteria. Please note revised GLUCOSE reference range effective 2017. LAB L501.1000 7-18 mg/dL High BUN 35 LAB L501.1100 0.55-1.02 mg/dL High CREAT,SERUM 1.45 Result Comment: The validity of the calculated GFR AND GFRAA in patients over 70 years has not been determined. Clinical correlation is essential. LAB L501.1110 >60 mL/min Low EST GFR 41 Result Comment: Non- GFR Calc LAB L501.1115 >60 mL/min Low EST GFR - AA 49 Result Comment: GFR Calc LAB L501.1255 ml/min Normal Estimated CRCL 32.97 LAB L501.1300 10-20 RATIO High BUN/CRE 24.1 LAB L501.1800 3.2-5. g/dL Low 0 ALB 2.5 LAB L501.2200 8.5-10 mg/dL Normal .1 CA 9.3 LAB L501.2300 2.5-4. mg/dL Low 9 PHOS 1.7 LAB L501.5300 136-14 mmol/L High 5 NA 146 LAB L501.5600 3.5-5. mmol/L Normal 1 K 3.9 LAB L501.5900 98-107 mmol/L High CL 112 LAB L501.6100 21.0-3 mmol/L Normal 2.0 CO2 24.0 Performed By: #### L500.3600 #### [facility] Laboratory [address] [place], [address] BEDSIDE GLUCOSE Collected: 06/11/2018 Status: F Source: [place] 6:54 AM [facility] REPOSITORY TYPE CODE TESTS RESULT OUT OF REFERENCE UNITS RANGE LAB L501.080 70-110 mg/dL High BEDSIDE GLU 159 Result Comment: MANAGEMENT OF PATIENT CARE PER NURSING PROTOCOL Performed By: #### L501.080 #### [facility] Laboratory Point of Care [address] [place] [address] BEDSIDE GLUCOSE Collected: 06/10/2018 Status: F Source: [place] 9:13 PM [facility] REPOSITORY TYPE CODE TESTS RESULT OUT OF REFERENCE UNITS RANGE LAB L501.080 70-110 mg/dL High BEDSIDE GLU 166 Result Comment: MANAGEMENT OF PATIENT CARE PER NURSING PROTOCOL Performed By: #### L501.080 #### [facility] Laboratory Point of Care [address] [place] [address] BEDSIDE GLUCOSE Collected: 06/10/2018 Status: F Source: [place] 4:16 PM [facility] REPOSITORY TYPE CODE TESTS RESULT OUT OF REFERENCE UNITS RANGE LAB L501.080 70-110 mg/dL High BEDSIDE GLU 174 Result Comment: MANAGEMENT OF PATIENT CARE PER NURSING PROTOCOL Performed By: #### L501.080 #### [facility] Laboratory Point of Care [address] [place] [address] BEDSIDE GLUCOSE Collected: 06/10/2018 Status: F Source: [place] 11:08 AM [facility] REPOSITORY TYPE CODE TESTS RESULT OUT OF REFERENCE UNITS RANGE LAB L501.080 70-110 mg/dL High BEDSIDE GLU 200 Result Comment: MANAGEMENT OF PATIENT CARE PER NURSING PROTOCOL Performed By: #### L501.080 #### [facility] Laboratory Point of Care [address] [place], [place] [address] BEDSIDE GLUCOSE Collected: 06/10/2018 Status: F Source: [place] 7:04 AM [facility] REPOSITORY TYPE CODE TESTS RESULT OUT OF REFERENCE UNITS RANGE LAB L501.080 70-110 mg/dL High BEDSIDE GLU 160 Result Comment: MANAGEMENT OF PATIENT CARE PER NURSING PROTOCOL Performed By: #### L501.080 #### [facility] Point of Care [address] [place], [place] [address] PROTHROMBIN TIME W/INR Collected: 06/10/2018 Status: F Source: [place]ON 6:30 AM [facility] REPOSITORY TYPE CODE TESTS RESULT OUT OF RANGE REFERENCE UNITS LAB L300.4150 11.7-14.9 SECONDS High PROTIME 21.4 LAB L300.4200 Normal INR 1.9 Performed By: #### L300.3900 #### [facility] [address] [facility] [place], [address] CBC W/DIFF, AUTOMATED Collected: 06/10/2018 Status: F Source: [place] 6:30 AM [facility] REPOSITORY TYPE CODE TESTS RESULT OUT OF RANGE REFERENCE UNITS LAB L100.1000 4.4-11.0 K/mm3 Normal WBC 6.4 LAB L100.1200 4.2-5.4 M/mm3 Low RBC 3.67 LAB L100.1300 12.0-15.0 g/dl Normal HGB 12.4 LAB L100.1400 37-47 % Normal HCT 38.7 LAB L100.1500 81-99 fL High MCV 105.4 LAB L100.1600 27.0-32.0 pg High MCH 33.8 LAB L100.1700 32-36 g/gl Normal MCHC 32.0 LAB L100.1810 11.6-14.6 % Normal RDW CV 14.6 LAB L100.1820 35.1-43.9 fl High RDW SD 56.7 LAB L100.1900 150-450 K/mm3 Low PLT 121 LAB L100.2000 6.2-12.0 fl Normal MPV 10.0 LAB L100.2100 47-70 % Normal NEUT% 59.8 LAB L100.2200 19-41 % Normal LY% 28.1 LAB L100.2300 0-10 % Normal MONO% 8.7 LAB L100.2400 0-5 % Normal EO% 2.3 LAB L100.2500 0-1 % Normal BASO% 0.2 LAB L100.2550 0.0-0.9 % Normal IM GRAN % 0.900 Result Comment: IG% - Immature Granulocytes (promyelocytes, myelocytes and metamyelocytes) > 1% indicates that a LEFT SHIFT is Present. LAB L100.2620 2.0-7.7 X10 3/uL Normal Absolute Neut 3.9 LAB L100.2720 0.83-4.51 X10 3/ul Normal Absolute Lymph 1.81 Performed By: #### L100.0100 #### [facility]. [place], [place], [address] RENAL PROFILE Collected: 06/10/2018 Status: F Source: [place] 6:30 AM [facility] REPOSITORY TYPE CODE TESTS RESULT OUT OF RANGE REFERENCE UNITS LAB L501.0100 74-106 mg/dL High GLU 163 Result Comment: Fasting Glucose result greater than or equal to 126 mg/dL suggests DIABETES MELLITUS per A.D.A. criteria. Please note revised GLUCOSE reference range effective 2017. LAB L501.1000 7-18 mg/dL High BUN 41 LAB L501.1100 0.55-1.02 mg/dL High CREAT,SERUM 1.61 Result Comment: The validity of the calculated GFR AND GFRAA in patients over 70 years has not been determined. Clinical correlation is essential. LAB L501.1110 >60 mL/min Low EST GFR 36 Result Comment: Non- GFR Calc LAB L501.1115 >60 mL/min Low EST GFR - AA 43 Result Comment: GFR Calc LAB L501.1255 ml/min Normal Estimated CRCL 29.69 LAB L501.1300 10-20 RATIO High BUN/CRE 25.5 LAB L501.1800 3.2-5. g/dL Low 0 ALB 2.6 LAB L501.2200 8.5-10 mg/dL Normal .1 CA 9.3 LAB L501.2300 2.5-4. mg/dL Low 9 PHOS 2.3 LAB L501.5300 136-14 mmol/L Normal 5 NA 145 LAB L501.5600 3.5-5. mmol/L Normal 1 K 4.4 Result Comment: Slight Hemolysis, Result may be falsely increased. LAB L501.5900 98-107 mmol/L High CL 111 LAB L501.6100 21.0-32.0 mmol/L Normal CO2 25.0 Performed By: #### L500.3600 #### [facility] [address] [place], [address] BEDSIDE GLUCOSE Collected: 06/09/2018 Status: F Source: RAÚL 10:23 PM [facility] REPOSITORY TYPE CODE TESTS RESULT OUT OF REFERENCE UNITS RANGE LAB L501.080 70-110 mg/dL High BEDSIDE GLU 185 Result Comment: MANAGEMENT OF PATIENT CARE PER NURSING PROTOCOL Performed By: #### L501.080 #### [facility] Point of Care [address] [place] [address] BEDSIDE GLUCOSE Collected: 06/09/2018 Status: F Source: RAÚL 4:55 PM [facility] REPOSITORY TYPE CODE TESTS RESULT OUT OF REFERENCE UNITS RANGE LAB L501.080 70-110 mg/dL High BEDSIDE GLU 163 Result Comment: Dr Orders Followed Insulin Given MANAGEMENT OF PATIENT CARE PER NURSING PROTOCOL Performed By: #### L501.080 #### [facility] Point of Care [address] [place] [address] BEDSIDE GLUCOSE Collected: 06/09/2018 Status: F Source: RAÚL 11:48 AM [facility] REPOSITORY TYPE CODE TESTS RESULT OUT OF REFERENCE UNITS RANGE LAB L501.080 70-110 mg/dL High BEDSIDE GLU 190 Result Comment: MANAGEMENT OF PATIENT CARE PER NURSING PROTOCOL Performed By: #### L501.080 #### [facility] Point of Care [address] [place] [address] HAND MIN 3 VIEWS Observed: 06/09/2018 Status: F Source: RAÚL 9:09 AM [facility] REPOSITORY [facility] Imaging Services [address] [place] [address] Hand Min 3 Views MR#: [id number] Acct: [id number] Name: DEBORA MEYERS Rep #: [id number] : 1965 F 53 From: Alin Rosa MD PCP: Livia Scott MD Status: ADM IN Study: Hand Min 3 Views Date of Exam: 06/09/18 Exam# [id number] Ordering Dr: Sugar Early MD STUDY: X-RAY - LEFT HAND REASON FOR EXAM: Female, 53 years old. Left hand redness and swelling. Previous IV site removed. TECHNIQUE: 3 view(s) of the hand. COMPARISON: None. FINDINGS: Normal radiocarpal articulation. Normal distal radioulnar joint. Normal visualized carpal bones. Normal carpal articulations Normal carpometacarpal articulation of the thumb. Normal second through fifth carpometacarpal joints. Normal metacarpi. Normal metacarpophalangeal joint of the thumb. Normal interphalangeal joint of the thumb. Normal proximal and distal phalanges of the thumb. Normal metacarpophalangeal joints of the second through fifth fingers. Diffuse narrowing of the proximal and distal interphalangeal joints of the second through fifth fingers. Normal phalanges of the second through fifth fingers. Soft tissue swelling in the dorsum of the hand. No radiopaque foreign bodies. RAD/Hand Min 3 Views IMPRESSION: 1. Soft tissue swelling in the dorsum of the hand without radiopaque foreign bodies. 2. No radiographic evidence of osteomyelitis or acute osseous abnormality. Electronically Signed: Alin Rosa MD at 9:39 EDT , Service support , CC: Livia Scott MD; Sugar Early MD Director Of Orthopedics: Signed CBC W/DIFF, AUTOMATED Collected: 06/09/2018 Status: F Source: RAÚL 7:33 AM [facility] REPOSITORY TYPE CODE TESTS RESULT OUT OF RANGE REFERENCE UNITS LAB L100.1000 4.4-11.0 K/mm3 Normal WBC 7.2 LAB L100.1200 4.2-5.4 M/mm3 Low RBC 3.75 LAB L100.1300 12.0-15.0 g/dl Normal HGB 12.9 LAB L100.1400 37-47 % Normal HCT 39.3 LAB L100.1500 81-99 fL High MCV 104.8 LAB L100.1600 27.0-32.0 pg High MCH 34.4 LAB L100.1700 32-36 g/gl Normal MCHC 32.8 LAB L100.1810 11.6-14.6 % Normal RDW CV 14.6 LAB L100.1820 35.1-43.9 fl High RDW SD 54.6 LAB L100.1900 150-450 K/mm3 Low PLT 130 LAB L100.2000 6.2-12.0 fl Normal MPV 10.1 LAB L100.2100 47-70 % Normal NEUT% 66.2 LAB L100.2200 19-41 % Normal LY% 22.8 LAB L100.2300 0-10 % Normal MONO% 8.9 LAB L100.2400 0-5 % Normal EO% 1.1 LAB L100.2500 0-1 % Normal BASO% 0.3 LAB L100.2550 0.0-0.9 % Normal IM GRAN % 0.700 Result Comment: IG% - Immature Granulocytes (promyelocytes, myelocytes and metamyelocytes) > 1% indicates that a LEFT SHIFT is Present. LAB L100.2620 2.0-7.7 X10 3/uL Normal Absolute Neut 4.8 LAB L100.2720 0.83-4.51 X10 3/ul Normal Absolute Lymph 1.65 Performed By: #### L100.0100 #### [facility] [address] [place], [address] RENAL PROFILE Collected: 06/09/2018 Status: F Source: [place] 7:33 AM [facility] REPOSITORY TYPE CODE TESTS RESULT OUT OF RANGE REFERENCE UNITS LAB L501.0100 74-106 mg/dL High GLU 180 Result Comment: Fasting Glucose result greater than or equal to 126 mg/dL suggests DIABETES MELLITUS per A.D.A. criteria. Please note revised GLUCOSE reference range effective 2017. LAB L501.1000 7-18 mg/dL High BUN 57 LAB L501.1100 0.55-1.02 mg/dL High CREAT,SERUM 2.20 Result Comment: The validity of the calculated GFR AND GFRAA in patients over 70 years has not been determined. Clinical correlation is essential. LAB L501.1110 >60 mL/min Low EST GFR 25 Result Comment: Non- GFR Calc LAB L501.1115 >60 mL/min Low EST GFR - AA 30 Result Comment: GFR Calc LAB L501.1255 ml/min Normal Estimated CRCL 21.73 LAB L501.1300 10-20 RATIO High BUN/CRE 25.9 LAB L501.1800 3.2-5. g/dL Low 0 ALB 2.6 LAB L501.2200 8.5-10 mg/dL Normal .1 CA 9.8 LAB L501.2300 2.5-4. mg/dL Normal 9 PHOS 3.2 LAB L501.5300 136-14 mmol/L Normal 5 NA 143 LAB L501.5600 3.5-5. mmol/L Normal 1 K 4.7 LAB L501.5900 98-107 mmol/L Normal CL 107 LAB L501.6100 21.0-3 mmol/L Normal 2.0 CO2 27.0 Performed By: #### L500.3600 #### [facility] [address] [place], [place], [address] BEDSIDE GLUCOSE Collected: 06/09/2018 Status: F Source: RAÚL 7:06 AM [facility] REPOSITORY TYPE CODE TESTS RESULT OUT OF REFERENCE UNITS RANGE LAB L501.080 70-110 mg/dL High BEDSIDE GLU 177 Result Comment: MANAGEMENT OF PATIENT CARE PER NURSING PROTOCOL Performed By: #### L501.080 #### [facility] Point of Care [address] [place], [place] [address] PROTHROMBIN TIME W/INR Collected: 06/09/2018 Status: F Source: [place] 5:35 AM [facility] REPOSITORY TYPE CODE TESTS RESULT OUT OF RANGE REFERENCE UNITS LAB L300.4150 11.7-14.9 SECONDS High PROTIME 25.4 LAB L300.4200 Normal INR 2.3 Performed By: #### L300.3900 #### [facility] [address] [place], [place], [address] BEDSIDE GLUCOSE Collected: 06/08/2018 Status: F Source: [place] 10:34 PM [facility] REPOSITORY TYPE CODE TESTS RESULT OUT OF REFERENCE UNITS RANGE LAB L501.080 70-110 mg/dL High BEDSIDE GLU 206 Result Comment: MANAGEMENT OF PATIENT CARE PER NURSING PROTOCOL Performed By: #### L501.080 #### [facility] Point of Care [address] [place] [address] CBC W/DIFF, AUTOMATED Collected: 06/08/2018 Status: F Source: [place] 6:40 PM [facility] REPOSITORY TYPE CODE TESTS RESULT OUT OF RANGE REFERENCE UNITS LAB L100.1000 4.4-11.0 K/mm3 Normal WBC 8.3 LAB L100.1200 4.2-5.4 M/mm3 Low RBC 3.90 LAB L100.1300 12.0-15.0 g/dl Normal HGB 13.4 LAB L100.1400 37-47 % Normal HCT 40.3 LAB L100.1500 81-99 fL High MCV 103.3 LAB L100.1600 27.0-32.0 pg High MCH 34.4 LAB L100.1700 32-36 g/gl Normal MCHC 33.3 LAB L100.1810 11.6-14.6 % Normal RDW CV 14.5 LAB L100.1820 35.1-43.9 fl High RDW SD 54.1 LAB L100.1900 150-450 K/mm3 Low PLT 144 LAB L100.2000 6.2-12.0 fl Normal MPV 10.3 LAB L100.2100 47-70 % Normal NEUT% 69.1 LAB L100.2200 19-41 % Normal LY% 21.0 LAB L100.2300 0-10 % Normal MONO% 8.1 LAB L100.2400 0-5 % Normal EO% 1.2 LAB L100.2500 0-1 % Normal BASO% 0.2 LAB L100.2550 0.0-0.9 % Normal IM GRAN % 0.400 Result Comment: IG% - Immature Granulocytes (promyelocytes, myelocytes and metamyelocytes) > 1% indicates that a LEFT SHIFT is Present. LAB L100.2620 2.0-7.7 X10 3/uL Normal Absolute Neut 5.7 LAB L100.2720 0.83-4.51 X10 3/ul Normal Absolute Lymph 1.74 Performed By: #### L100.0100 #### [facility] [address] [place], [address] RENAL PROFILE Collected: 06/08/2018 Status: F Source: [place] 6:40 PM [facility] REPOSITORY TYPE CODE TESTS RESULT OUT OF RANGE REFERENCE UNITS LAB L501.0100 74-106 mg/dL High GLU 217 Result Comment: Glucose result greater than or equal to 200 mg/dL suggests DIABETES MELLITUS per A.D.A. criteria. Please note revised GLUCOSE reference range effective 2017. LAB L501.1000 7-18 mg/dL High BUN 73 LAB L501.1100 0.55-1.02 mg/dL High CREAT,SERUM 3.29 Result Comment: The validity of the calculated GFR AND GFRAA in patients over 70 years has not been determined. Clinical correlation is essential. LAB L501.1110 >60 mL/min Low EST GFR 16 Result Comment: Non- GFR Calc LAB L501.1115 >60 mL/min Low EST GFR - AA 19 Result Comment: GFR Calc LAB L501.1255 ml/min Normal Estimated CRCL 14.53 LAB L501.1300 10-20 RATIO High BUN/CRE 22.2 LAB L501.1800 3.2-5. g/dL Low 0 ALB 2.7 LAB L501.2200 8.5-10 mg/dL High .1 CA 10.5 LAB L501.2300 2.5-4. mg/dL High 9 PHOS 5.6 LAB L501.5300 136-14 mmol/L Normal 5 NA 140 LAB L501.5600 3.5-5. mmol/L High 1 K 5.3 LAB L501.5900 98-107 mmol/L Normal CL 103 LAB L501.6100 21.0-3 mmol/L Normal 2.0 CO2 26.0 Performed By: #### L500.3600 #### [facility] [address] [place], [address] BEDSIDE GLUCOSE Collected: 06/08/2018 Status: F Source: RAÚL 5:31 PM [facility] REPOSITORY TYPE CODE TESTS RESULT OUT OF REFERENCE UNITS RANGE LAB L501.080 70-110 mg/dL High BEDSIDE GLU 195 Result Comment: MANAGEMENT OF PATIENT CARE PER NURSING PROTOCOL Performed By: #### L501.080 #### [facility] Point of Care [address] [place] [address] UREA NITROGEN, URINE Collected: 06/08/2018 Status: F Source: RALÚ 1:40 PM [facility] REPOSITORY Order Comment: Order Date: 06/08/18 Comments: Specimen obtained from dickey catheter TYPE CODE TESTS RESULT OUT OF RANGE REFERENCE UNITS LAB L502.0715 NO RANGE EST. mg/dL Normal URINE 572 UREA Performed By: #### L502.0715 #### [facility] [place], [address] CREATININE, URINE Collected: 06/08/2018 Status: F Source: RAÚL (RANDOM) 1:40 PM [facility] REPOSITORY Order Comment: Order Date: 06/08/18 Comments: Specimen obtained from dickey catheter TYPE CODE TESTS RESULT OUT OF RANGE REFERENCE UNITS LAB L501.1200 NO RANGE EST. mg/dL Normal UR CREAT 60.70 Performed By: #### L501.1200 #### [facility] [address] [place] [address], [address] KIDNEY AND BLADDER Observed: 06/08/2018 Status: F Source: RAÚL 12:57 PM [facility] REPOSITORY [facility] Imaging Services [address] [place] [address] Kidney and Bladder MR#: [id number] Acct: [id number] Name: DEBORA MEYERS Rep #: [id number] : 1965 F 53 From: Chapin Jett MD PCP: Livia Scott MD Status: ADM IN Study: Kidney and Bladder Date of Exam: 06/08/18 Exam# [id number] Ordering Dr: Sugar Early MD STUDY: RENAL ULTRASOUND - COMPLETE REASON FOR EXAM: Female, 53 years old. ARF TECHNIQUE: Ultrasound evaluation of the kidneys was performed with real-time and static gonzalez-scale imaging. COMPARISON: None. FINDINGS: RIGHT KIDNEY: Normal location of the right kidney, which is normal in size. The right kidney measures 9.5X4.7X5.6 cm. There is a normal cortex of the right kidney. The renal cortex measures 1.2 cm. There is no right renal mass or cyst. There are no right renal calculi. There is no right hydronephrosis. Prominent right column of Lew. DISTAL RIGHT URETER: There is non-visualization of the distal right ureter. There is no demonstrated right ureterovesical junction calculus. There is no demonstrated right ureteral jet. LEFT KIDNEY: Normal location of the left kidney, which is normal in size. The left kidney measures 9.8X4.1X3.3 cm. There is a normal cortex of the left kidney. The renal cortex measures 1.2 cm. There is no left renal mass or cyst. There are no left renal calculi. There is no left hydronephrosis. DISTAL LEFT URETER: There is non-visualization of the distal left ureter. There is no demonstrated left ureterovesical junction calculus. There is no demonstrated left ureteral jet. AORTA: There is obscuration of the abdominal aorta by overlying bowel gas I.V.C.: The IVC is obscured. BLADDER: There is a Dickey balloon catheter in the urinary bladder. US/Kidney and Bladder IMPRESSION: Normal ultrasound of the kidneys and urinary bladder. Electronically Signed: Chapin Jett MD at 16:03 EDT , Service support , CC: Livia Scott MD; Sugar Early MD Director Of Orthopedics: Signed PROTHROMBIN TIME W/INR Collected: 06/08/2018 Status: F Source: RAÚL 6:32 AM [facility] REPOSITORY TYPE CODE TESTS RESULT OUT OF REFERENCE UNITS RANGE LAB L300.4150 11.7-14.9 SECONDS High PROTIME 35.3 LAB L300.4200 High alert INR 3.5 Result Comment: CRITICAL VALUE VERIFIED. CALLED TO [facility] 06/08/18 0706 Marquita Gresham. RESULTS READ BACK BY SAME . Performed By: #### L300.3900 #### [facility] [address] [place], [address] BASIC METABOLIC Collected: 06/08/2018 Status: F Source: [place] PROFILE (BMP) 6:32 AM [facility] REPOSITORY TYPE CODE TESTS RESULT OUT OF RANGE REFERENCE UNITS LAB L501.0100 74-106 mg/dL High GLU 201 Result Comment: Glucose result greater than or equal to 200 mg/dL suggests DIABETES MELLITUS per A.D.A. criteria. Please note revised GLUCOSE reference range effective 2017. LAB L501.1000 7-18 mg/dL High BUN 83 LAB L501.1100 0.55-1.02 mg/dL High CREAT,SERUM 4.91 Result Comment: The validity of the calculated GFR AND GFRAA in patients over 70 years has not been determined. Clinical correlation is essential. LAB L501.1110 >60 mL/min Low EST GFR 10 Result Comment: Non- GFR Calc LAB L501.1115 >60 mL/min Low EST GFR - AA 12 Result Comment: GFR Calc LAB L501.1255 ml/min Normal Estimated CRCL 9.74 LAB L501.1300 10-20 RATIO Normal BUN/CRE 16.9 LAB L501.2200 8.5-10. mg/dL High 1 CA 10.4 LAB L501.5300 136-145 mmol/L Low NA 131 LAB L501.5600 3.5-5.1 mmol/L High K 5.6 LAB L501.5900 98-107 mmol/L Normal CL 98 LAB L501.6100 21.0-32 mmol/L Normal .0 CO2 23.0 LAB L501.6200 5-15 Normal GAP 10 Performed By: #### L500.2500 #### [facility] [address] [place], [address] BEDSIDE GLUCOSE Collected: 06/08/2018 Status: F Source: [place] 6:05 AM [facility] REPOSITORY TYPE CODE TESTS RESULT OUT OF REFERENCE UNITS RANGE LAB L501.080 70-110 mg/dL High BEDSIDE GLU 128 Result Comment: MANAGEMENT OF PATIENT CARE PER NURSING PROTOCOL Performed By: #### L501.080 #### [facility] Point of Care [address] [place] [address] HISTORY AND PHYSICAL Observed: 06/08/2018 Status: F Source: [place] EXAM 4:42 AM [facility] REPOSITORY [facility] Medical Records Department [address] [place] [address] History and Physical 06/07/18 2321 MR#: [id number] Acct: [id number] Name: DEBORA MEYERS Rep #: [id number] : 1965 53 From: George Sanders MD PCP: Livia Scott MD Status: ADM IN Y Location: [place] [address] Problem List (1) NIDA (acute kidney injury) Status: Acute (2) Hyperkalemia Status: Acute (3) Altered mental status Status: Acute (4) Generalized weakness Status: Acute (5) CKD (chronic kidney disease) stage 3, GFR 30-59 ml/min Status: Chronic (6) Chronic back pain Status: Chronic (7) Depression Status: Chronic (8) Diabetes Status: Chronic (9) Diverticulosis Status: Chronic History of Present Illness Date of Admission: 06/07/18 Chief Complaint: NIDA The patient is a 53 year old female w/ h/o COPD, STACY, CKD III, and DMII admitted for alter mental status. She is unable to provide any history. History is taken from chart review and her . 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 She has been more confused on the day she ran out. She was unarousable by her . She was not able to take her meds. She did not drink much water. Past Medical History Past Medical History (Chronic Problems): Chronic Problems Obesity, morbid, BMI 40.0-49.9 (Chronic) Peripheral neuropathy (Chronic) CKD (chronic kidney disease) stage 3, GFR 30-59 ml/min (Chronic) IBS (irritable bowel syndrome) (Chronic) Fibromyalgia syndrome (Chronic) GERD (gastroesophageal reflux disease) (Chronic) Sleep apnea (Chronic) O2 at night claustrophobic Depression (Chronic) Diverticulosis (Chronic) Chronic back pain (Chronic) Asthma (Chronic) Diabetes (Chronic) Allergies hydrogen peroxide Allergy (Verified 02/04/18 15:07) Rash Sulfa (Sulfonamide Antibiotics) Allergy (Verified 02/04/18 15:07) Hives iodine Adverse Reaction (Verified 02/04/18 15:07) burning (topical) vitamin k Allergy (Uncoded 04/08/17 09:57) Swelling/burning around injection site Home Medications: Ambulatory Orders Medication Instructions Recorded Dicyclomine HCl [Bentyl] 10 mg PO 4X/DAY PRN 06/30/14 Surgical History: cholecystectomy, hysterectomy, - - Gastric surgery for acid reflux, pain pump insertion [employer] History: No pertinent [employer] history Smoking Status: Never smoker Alcohol: None Drugs: None - *Family History Maternal History Items: No pertinent history, - Review of Systems Unable to obtain accurate/complete ROS d/t: Unable to obtain VTE Information - Inpt Only VTE Present on Admission: No VTE Mechan Device Prophylaxis: SCD's VTE Pharm Prophylaxis ordered?: Yes Patient Problems: Active and Suspected Problems NIDA (acute kidney injury) (Acute) Hyperkalemia (Acute) Altered mental status (Acute) - Physical Exam General: Confused, Disoriented, Lethargic, Non-Cooperative HEENT: Atraumatic, PERRLA, EOMI, Normocephalic Neck: Supple, No JVD, Negative Carotid Bruits Lungs: Clear to auscultation, Normal air movement Cardiovascular: Regular rate, No murmurs Abdomen: Bowel Sounds Present, Soft, Non Tender Extremities: No edema, Capillary Refill Less than 3 Seconds Skin: No rashes, No breakdown Musculoskeletal: No Tenderness to Palpation of Joints or Extremities Neurological: Cranial nerves II-XII grossly intact Psych/Mental Status: Normal Affect, Appropriate Vital Signs Temp Pulse Resp BP Pulse Ox 98.5 F 88 16 118/85 H 93 06/07/18 18:06 06/07/18 22:19 06/07/18 22:19 06/07/18 22:19 07/20/18 22:19 Oxygen Flow Rate (L/min) 3 Oxygen Delivery Method Nasal Cannula Weight: 134.8 kg Body Mass Index (BMI) 58.0 Finger Stick Blood Glucose 254 Laboratory Tests Past 24 Hrs WBC 9.2 RBC 4.03 L Hgb 13.6 Hct 41.6 MCV 103.2 H MCH 33.7 H WBC RBC Hgb Hct MCV MCH MCHC RDW RDW Differential Assessment/Plan All Active Problems NIDA (acute kidney injury) (Acute) Hyperkalemia (Acute) Altered mental status (Acute) Generalized weakness (Acute) Multiple falls (Acute) Supratherapeutic INR (Resolved) Transaminitis (Resolved) 53 year old female w/ h/o COPD, STACY, CKD III, and DMII admitted for alter mental status. 1) ARF: Most likely azotemia. Hydration. Possible ATN from prolong azotemia. Monitor. 2) Hyperkalemia: Most likely secondary ARF. S/p calcium. Will give insulin and chelsi. Serial labs. 3) Alter mental status: Most likely secondary to opiates and methamphetamin. Supportive care. 4) Prophylaxis: SCD / Coumadin. 06/08/18 0442 <Electronically signed by George Sanders MD> Date George Sanders MD Cosigner Signature: Date (if applicable) CC: Livia Scott MD; George Sanders MD Signed EMERGENCY DEPARTMENT Observed: 06/08/2018 Status: F Source: [place] SUMMARY 12:07 AM [facility] REPOSITORY [facility] Medical Records Department [address] [place] [address] Emergency Department Summary 06/07/18 2307 MR#: [id number] Acct: [id number] Name: DEBORA MEYERS Rep #: [id number] : 1965 53 From: Lobo Artis MD PCP: Livia Scott MD Status: ADM IN - ER Visit Summary Date of Service: 06/07/18 Chief Complaint: His mental status. Increased sleep. History of Present Illness: The patient is a 53 F history of prior TIA, COPD, sleep apnea, renal insufficiency, diabetes, chronic pain with a pain pump. According the patient had a decreased mental status since Sunday with increasing sleep. No fever. No fall or head trauma. She is on Coumadin. Physical Examination: Obese female. Initial blood pressure 93/61 temperature 95. Pulse ox 90% on 3 L. Consistent with hypoxia. H EENT exam unremarkable. Neck nontender no lymphadenopathy. No JVD. Lungs diminished in bases bilaterally. No rales rhonchi. Heart regular rate and rhythm rate in the 80s. No murmur. Abdomen obese but soft nontender nondistended no giving or masses. Remedies moves all 4. Neurologically she is eyes are open she is awake but she is depressed overall mental status. He currently is not following commands. Test Results: Chest x-ray shows chronic changes. Central pulmonary edema. Cannot rule out infiltrate. CT the brain shows chronic changes. EKG sinus rhythm rate 82 no acute signs of OK or ischemia. White count 9 H AND H 13 and 41. Electrolytes sodium 131. Potassium 5.9. Normal anion gap of 14. BUN of 80 creatinine 5.9 consistent with acute on chronic renal insufficiency and dehydration. UA normal no signs of infection troponin normal ketones are negative. Blood gas 7.34 PCO2 of 48 PO2 of 77. Emergency Department Course and Treatment: Patient treated with IV fluids. Treatment Plan: I spoke with the hospitalist Dr. Sanders to be admitted. Disposition: Admission Impression: Acute mental status change Acute on chronic renal insufficiency Dehydration. Hyperkalemia. Chronic pain with a pain pump. This note was generated with [employer] dictation software. It may contain incorrect words, spelling, and punctuation that were not noted in review of the chart prior to signing ED Disposition - Plan for ED Patient: Chief Complaint: Alt LOC Referrals: Livia Scott MD [Primary Care Provider] - What to do if you have Problems For any increased pain, shortness of breath, bleeding, nausea or vomiting, chest pain, or any unexpected problems, contact your Primary Care Provider. Call [facility] ([phone]) or report to the closest Emergency Room. Call 911 if necessary. 06/08/18 0007 <Electronically signed by Lobo Artis MD> Date Lobo Artis MD Cosigner Signature (If Indicated): Date CC: Livia Scott MD ACETONE SERUM Collected: 06/07/2018 Status: F Source: [place] 8:39 PM [facility] REPOSITORY TYPE CODE TESTS RESULT OUT OF RANGE REFERENCE UNITS LAB L501.6900 NEG Normal ACETONE SERUM NEGATIVE Performed By: #### L501.6900 #### [facility] [address] [place], [address] URINALYSIS, COMPLETE Collected: 06/07/2018 Status: F Source: [place] 7:42 PM [facility] REPOSITORY Order Comment: How was Urine Obtained? COMMUNICATIONS CONTROLLER TO SPECIFY TYPE CODE TESTS RESULT OUT OF RANGE REFERENCE UNITS LAB L400.3000 Yellow COLOR Normal Yellow LAB L400.3050 Clear Normal CLARITY Sl. Cloudy LAB L400.3200 Normal mg/dl Normal GLUCOSE, UR Normal LAB L400.3300 Negative mg/dL High BILIRUBIN URINE 3 Result Comment: COLOR OF URINE MAY AFFECT DIPSTICK RESULTS. LAB L400.3400 Negative mg/dl Normal KETONE UR Negative LAB L400.3465 1.002-1.030 Normal SP.GR. DIPSTX 1.020 LAB L400.3550 5.0 - 8.0 pH Normal UR 5.0 LAB L400.3600 Negative mg/dl High PROT DIPSTX 15 LAB L400.3700 Normal mg/dl High UROBILI 1 LAB L400.3750 Negative Normal NITRITE UR Negative LAB L400.3780 Negative /ul Normal OCCULT Negative BLOOD-UR LAB L400.3800 Negative /ul High LEUK ESTERASE 25 LAB L400.4050 0-5 /hpf Normal WBC 0 SEEN LAB L400.4100 0-5 /hpf Normal RBC-UA 0 SEEN LAB L400.4150 5-10 /hpf Normal SQUAM EPI 0-5 SEEN LAB L400.4300 None Seen /hpf Normal BACTERIA 0 SEEN LAB L400.4350 <or=2+ /hpf Normal MUCUS, URINE 0 SEEN LAB L400.4400 0-5 /lpf Normal HYALINE CAST 0-5 SEEN LAB L400.4700 <or=2+ /hpf CA Normal OX CRYSTAL RARE Performed By: #### L400.0001 #### [facility] [address] [place], [place], [id number] URINE DRUG SCREEN Collected: 06/07/2018 Status: F Source: [place] (VISTA) 7:42 PM [facility] REPOSITORY TYPE CODE TESTS RESULT OUT OF RANGE REFERENCE UNITS LAB L505.0075 TO BE Normal CONFIRMED Result Comment: CONFIRMATORY TESTING FOR ALL POSITIVE URINE DRUG SCREEN RESULTS WILL ONLY BE SENT OUT UPON PHYSICIAN ORDER. VISTA Urine Drug Screen methods provide only preliminary analytical test results. A more specific alternate chemical method must be used in order to obtain a confirmed analytical result. Gas chromatography/mass spectrometery (GC/MS) is the preferred confirmatory method. Clinical consideration and professional judgement should be applied to any drug of abuse test result, particularly when preliminary positive results are used. URINE TCA TESTING MUST BE ORDERED SEPARATELY. USE TEST MNEMONIC: [facility] LAB L505.5005 VISTA UDS PH 5 Normal LAB L505.5015 <1000 ng/mL AMPHETAMINES Normal NEGATIVE LAB L505.5025 < 200 ng/mL BARBITIURATES Normal NEGATIVE LAB L505.5035 < 200 ng/mL BENZODIAZIPINE Normal NEGATIVE LAB L505.5045 < 300 ng/mL COCAINE Normal NEGATIVE LAB L505.5055 < 500 High ng/mL ECSTACY POSITIVE LAB L505.5065 < 300 ng/mL METHADONE Normal NEGATIVE LAB L505.5075 < 300 High ng/mL OPIATES POSITIVE LAB L505.5085 < 25 ng/mL PCP Normal NEGATIVE LAB L505.5095 < 50 ng/mL THC Normal NEGATIVE Performed By: #### L505.5000 #### [facility] [address] [place], [place], [id number] BLOOD GASES BY CPS Collected: 06/07/2018 Status: F Source: [place] 7:27 PM [facility] REPOSITORY TYPE CODE TESTS RESULT OUT OF RANGE REFERENCE UNITS LAB L9000.9990 Normal BLD GAS TYPE ART LAB L9001.1000 Normal SITE R Radial LAB L9001.1010 Normal ERNST TEST POS LAB L9001.1050 O2 Normal Delivery Dev Nasal Can LAB L9001.1055 /min Normal LPM 3.0 LAB L9001.1104 Normal Results To ED LAB L9001.1105 Normal Time Given 1923 LAB L9001.1110 7.35-7.45 Low pH - I-STAT 7.34 LAB L9001.1210 35-45 mmHg High pCO2 - ISTAT 48.5 LAB L9001.1310 75-100 mmHG Normal PO2 I-STAT 77 LAB L9001.2300 22-26 mmol/L Normal HCO3 ISTAT 26.0 LAB L9001.2400 -2 to +2 mmol/L BE Normal ISTAT 0 LAB L9001.2415 mmol/L Normal TOTAL CO2 27 ISTAT LAB L9001.2425 95-99 % Low SO2 ISTAT 94 Performed By: #### L9000.0800 #### [facility] Point of Care [address] [place] [address] CHEST 1 VIEW Observed: 06/07/2018 Status: F Source: [place] (PORTABLE) 6:48 PM [facility] REPOSITORY [facility] Imaging Services [address] [place] [address] Chest 1 View (Portable) MR#: [id number] Acct: [id number] Name: DEBORA MEYERS Rep #: [id number] : 1965 F 53 From: Chapin Jett MD PCP: Livia Scott MD Status: REG ER Study: Chest 1 View (Portable) Date of Exam: 06/07/18 Exam# [id number] Ordering Dr: Lobo Artis MD STUDY: X-RAY CHEST REASON FOR EXAM: Female, 53 years old. ALT LOC, best image possible, patient unable to follow any instructions TECHNIQUE: Single frontal view of the chest. COMPARISON: June 12, 2017 FINDINGS: Slight prominence of the pulmonary vasculature. Fluffy bilateral infiltrates. There is no pneumothorax. There are bilateral pleural effusions. The osseous structures are intact. The heart appears enlarged. Normal mediastinum and tomasa. There is prominence of the pulmonary hilar arteries and peripheral pulmonary arteries, consistent with congestive heart failure (CHF). There is atherosclerotic calcification of the aortic arch with tortuosity. There are diffuse degenerative changes of the visualized thoracic spine. There is degenerative osteoarthritis of the bilateral shoulders. There is no demonstrated abnormality of the visualized soft tissue structures of the upper abdomen. IMPRESSION: Central pulmonary vascular congestion vs pulmonary edema. Overlying pneumonia cannot be excluded. Electronically Signed: Chapin Jett MD at 19:42 EDT , Service support , RAD/Chest 1 View (Portable) CC: Lobo Artis MD; Livia Scott MD Director Of Orthopedics: Signed BRAIN/HEAD WITHOUT Observed: 06/07/2018 Status: F Source: [place] CONTRAST 6:48 PM [facility] REPOSITORY [facility] Imaging Services [address] [address] Brain/Head without Contrast MR#: [id number] Acct: [id number] Name: DEBORA MEYERS Rep #: [id number] : 1965 F 53 From: Chapin Jett MD PCP: Livia Scott MD Status: REG ER Study: Brain/Head without Contrast Date of Exam: 06/07/18 Exam# [id number] Ordering Dr: Lobo Artis MD STUDY: CT BRAIN WITHOUT CONTRAST REASON FOR EXAM: Female, 53 years old. ALTERED MENTAL STATUS RADIATION DOSAGE (If Supplied By Facility): CTDIvol = ( 44.99 ) mGy, DLP = ( 796.11 ) mGycm TECHNIQUE: Transaxial CT imaging of the brain was performed without administration of intravenous contrast material. COMPARISON: July 28, 2016 FINDINGS: Normal soft tissue structures. Normal calvarium. There are calcifications around the carotid artery. These are noted in the cavernous carotid arteries. There is mild cerebral atrophy with widening of the extra- axial spaces and ventricular dilatation. There are areas of decreased attenuation within the white matter tracts of the supratentorial brain, consistent with microvascular disease changes. Normal basal ganglia and thalami. Normal brainstem. There is mild cerebellar atrophy. There is no intracranial hemorrhage. There are no findings of an acute ischemic infarction. Normal visualized paranasal sinuses. CT/Brain/Head without Contrast IMPRESSION: Chronic involutional changes of the brain. There are no acute findings. Electronically Signed: Chapin Jett MD at 20:23 EDT , Service support , CC: Lobo Artis MD; Livia Scott MD Director Of Orthopedics: Signed CBC W/DIFF, AUTOMATED Collected: 06/07/2018 Status: F Source: [place] 6:15 PM [facility] REPOSITORY TYPE CODE TESTS RESULT OUT OF RANGE REFERENCE UNITS LAB L100.1000 4.4-11.0 K/mm3 Normal WBC 9.2 LAB L100.1200 4.2-5.4 M/mm3 Low RBC 4.03 LAB L100.1300 12.0-15.0 g/dl Normal HGB 13.6 LAB L100.1400 37-47 % Normal HCT 41.6 LAB L100.1500 81-99 fL High MCV 103.2 LAB L100.1600 27.0-32.0 pg High MCH 33.7 LAB L100.1700 32-36 g/gl Normal MCHC 32.7 LAB L100.1810 11.6-14.6 % High RDW CV 15.0 LAB L100.1820 35.1-43.9 fl High RDW SD 56.5 LAB L100.1900 150-450 K/mm3 Low PLT 148 LAB L100.2000 6.2-12.0 fl Normal MPV 10.6 LAB L100.2100 47-70 % Normal NEUT% 64.4 LAB L100.2200 19-41 % Normal LY% 24.9 LAB L100.2300 0-10 % Normal MONO% 9.0 LAB L100.2400 0-5 % Normal EO% 1.4 LAB L100.2500 0-1 % Normal BASO% 0.2 LAB L100.2550 0.0-0.9 % Normal IM GRAN % 0.100 Result Comment: IG% - Immature Granulocytes (promyelocytes, myelocytes and metamyelocytes) > 1% indicates that a LEFT SHIFT is Present. LAB L100.2620 2.0-7.7 X10 3/uL Normal Absolute Neut 5.9 LAB L100.2720 0.83-4.51 X10 3/ul Normal Absolute Lymph 2.28 Performed By: #### L100.0100 #### [facility] [address] [place], [address] BASIC METABOLIC Collected: 06/07/2018 Status: F Source: [place] PROFILE (BMP) 6:15 PM [facility] REPOSITORY TYPE CODE TESTS RESULT OUT OF RANGE REFERENCE UNITS LAB L501.0100 74-106 mg/dL High GLU 167 Result Comment: Fasting Glucose result greater than or equal to 126 mg/dL suggests DIABETES MELLITUS per A.D.A. criteria. Please note revised GLUCOSE reference range effective 2017. LAB L501.1000 7-18 mg/dL High BUN 80 LAB L501.1100 0.55-1.02 mg/dL High CREAT,SERUM 5.90 Result Comment: The validity of the calculated GFR AND GFRAA in patients over 70 years has not been determined. Clinical correlation is essential. LAB L501.1110 >60 mL/min Low EST GFR 8 Result Comment: Non- GFR Calc LAB L501.1115 >60 mL/min Low EST GFR - AA 10 Result Comment: GFR Calc LAB L501.1255 ml/min Normal Estimated CRCL 8.10 LAB L501.1300 10-20 RATIO Normal BUN/CRE 13.6 LAB L501.2200 8.5-10. mg/dL High 1 CA 11.1 LAB L501.5300 136-145 mmol/L Low NA 131 LAB L501.5600 3.5-5.1 mmol/L High K 5.9 Result Comment: Slight Hemolysis, Result may be falsely increased. LAB L501.5900 98-107 mmol/L Low CL 91 LAB L501.6100 21.0-32.0 mmol/L Normal CO2 26.0 LAB L501.6200 5-15 Normal GAP 14 Performed By: #### L500.2500, L501.4010 #### [facility] [address] [place], [address] TROPONIN-I Collected: 06/07/2018 Status: F Source: [place] 6:15 PM [facility] REPOSITORY TYPE CODE TESTS RESULT OUT OF RANGE REFERENCE UNITS LAB L501.4010 <0.045 ng/mL Normal < 0.015 TROPONIN-I Result Comment: TROPONIN-I EXPECTED VALUES <0.045 Negative 0.045 - 0.590 Consistent with Cardiac Damage > OR = 0.600 Critical Value Not every elevated troponin is indicative of OK. These values should be used with clinical judgement in examining the patient's clinical picture for diagnosis. To establish a diagnosis of OK versus myocardial injury, there must be a demonstrated rise and/or fall in the troponin values, in addition to ischemic symptoms, EKG changes, new regional wall motion abnormality, and/or angiographical evidence. PLEASE NOTE: REFERENCE RANGES EDITED 18 Performed By: #### L500.2500, L501.4010 #### [facility] [address] [place], [address] PROTHROMBIN TIME W/INR Collected: 06/07/2018 Status: F Source: [place] 6:15 [facility] REPOSITORY TYPE CODE TESTS RESULT OUT OF RANGE REFERENCE UNITS LAB L300.4150 11.7-14.9 SECONDS High PROTIME 31.6 LAB L300.4200 Normal INR 3.0 Performed By: #### L300.3900 #### [facility] [address] [place], [address] PROGRESS Observed: 06/04/2018 Status: COMPLETED Source: [place] 5:04 PM [facility] REPOSITORY HNO ID: [id number] Author: Sheeba King RN Service: (none) Author Type: (none) Type: Progress Notes Filed: 06/04/2018 5:04 PM Note Text: per written order by dr scott pt is to take 7.5mg Tues,Thurs and 5mg all other days PATIENT NOTIFIED OF INFORMATION PROGRESS Observed: 06/04/2018 Status: COMPLETED Source: [place] 3:47 PM [facility] [place] REPOSITORY O ID: [id number] Author: Sheeba King RN Service: (none) Author Type: (none) Type: Progress Notes Filed: 06/04/2018 3:48 PM Note Text: patient had inr completed at [facility] patients inr is 2.1 (patients inr range is 3.0-4.0) patient is currently taking 7.5mg Thur and 5mg all other days patients last dose change was on 05/23/18 due to a low level of 2.2 (dose at that time was 2.5mg Thurs, and 5mg all other days) patient has had no changes in medication and no missed doses and no change in diet Advised patient that they would be contacted regarding medication dose and when to follow up after information is reviewed by provider. After provider review please contact the patient with information and schedule follow up appointment with coumadin clinic. FYI - patient has been scheduled for a 2 week follow up inr on 06/18/18 LIVER Observed: 05/30/2018 Status: F Source: [place] 10:59 AM [facility] REPOSITORY [facility] Imaging Services [address] [place] [address] Liver MR#: [id number] Acct: [id number] Name: DEBORA MEYERS Rep #: [id number] : 1965 F 53 From: Doroteo Wylie DO PCP: Livia Scott MD Status: REG CLI Study: Liver Date of Exam: 05/30/18 Exam# [id number] Ordering Dr: Cat Donato MD STUDY: ABDOMINAL ULTRASOUND - RIGHT UPPER QUADRANT REASON FOR VISIT: Female, 53 years old. Elevated LFTs. TECHNIQUE: Ultrasound evaluation of the right upper quadrant was performed with real-time and static molina-scale imaging. TECHNICAL QUALITY: Examination limited by bowel gas. COMPARISON: CT of the abdomen and pelvis, April 08, 2017. FINDINGS: Liver: The liver measures 11.4 cm. There is increased echogenicity consistent with fatty infiltration. The bile ducts are within normal limits. There is hepatic color flow. The direction of portal flow is hepatopetal. There is no demonstrated mass lesion. Gallbladder: The patient is status post cholecystectomy. Common Bile Duct (C.B.D.): The common bile duct measures 3.2 mm. Pancreas: There is nonvisualization of the pancreas. Right Kidney: Normal size of the right kidney. The right kidney measures 10.2 cm. Normal renal cortex. The right cortex measures 1.1 cm. There is a focal area within the renal sinus similar in echogenicity to the renal parenchyma thought to represent a column of Lew. This correlates with the prior CT findings. There is no right hydronephrosis. US/Liver IMPRESSION: 1. Small fatty infiltrated liver without focal mass. 2. Status post cholecystectomy. 3. Nonvisualization the pancreas due to bowel gas. 4. Column of Lew without other evidence of renal abnormality. Electronically Signed: Doroteo Wylie DO at 21:30 EDT Tel [phone], Service support , CC: Livia Scott MD; Cat Donato MD Director Of Orthopedics: Signed CBC W/DIFF, AUTOMATED Collected: 05/27/2018 Status: F Source: [place] 2:03 PM [facility] REPOSITORY TYPE CODE TESTS RESULT OUT OF RANGE REFERENCE UNITS LAB L100.1000 4.4-11.0 K/mm3 Normal WBC 4.6 LAB L100.1200 4.2-5.4 M/mm3 Low RBC 4.13 LAB L100.1300 12.0-15.0 g/dl Normal HGB 14.0 LAB L100.1400 37-47 % Normal HCT 42.1 LAB L100.1500 81-99 fL High MCV 101.9 LAB L100.1600 27.0-32.0 pg High MCH 33.9 LAB L100.1700 32-36 g/gl Normal MCHC 33.3 LAB L100.1810 11.6-14.6 % Normal RDW CV 14.3 LAB L100.1820 35.1-43.9 fl High RDW SD 52.7 LAB L100.1900 150-450 K/mm3 Normal PLT 180 LAB L100.2000 6.2-12.0 fl Normal MPV 9.8 LAB L100.2100 47-70 % Low NEUT% 40.8 LAB L100.2200 19-41 % High LY% 47.1 LAB L100.2300 0-10 % Normal MONO% 8.7 LAB L100.2400 0-5 % Normal EO% 2.8 LAB L100.2500 0-1 % Normal BASO% 0.2 LAB L100.2550 0.0-0.9 % Normal IM GRAN % 0.400 Result Comment: IG% - Immature Granulocytes (promyelocytes, myelocytes and metamyelocytes) > 1% indicates that a LEFT SHIFT is Present. LAB L100.2620 2.0-7.7 X10 3/uL Low Absolute Neut 1.9 LAB L100.2720 0.83-4.51 X10 3/ul Normal Absolute Lymph 2.16 Performed By: #### L100.0100 #### [facility] [address] [place], [address] COMPREHENSIVE METABOLIC Collected: 05/27/2018 Status: F Source: [facility] 2:03 PM [facility] REPOSITORY TYPE CODE TESTS RESULT OUT OF RANGE REFERENCE UNITS LAB L501.0100 74-106 mg/dL High GLU 121 Result Comment: Fasting Glucose result from 100 to 125 mg/dL suggests IMPAIRED HOMEOSTASIS per A.D.A. criteria. Please note revised GLUCOSE reference range effective 2017. LAB L501.1000 7-18 mg/dL High BUN 29 LAB L501.1100 0.55-1.02 mg/dL High CREAT,SERUM 1.60 Result Comment: The validity of the calculated GFR AND GFRAA in patients over 70 years has not been determined. Clinical correlation is essential. LAB L501.1110 >60 mL/min Low EST GFR 36 Result Comment: Non- GFR Calc LAB L501.1115 >60 mL/min Low EST GFR - AA 44 Result Comment: GFR Calc LAB L501.1300 10-20 RATIO Normal BUN/CRE 18.1 LAB L501.1500 6.4-8.2 g/dL T Normal PROT 7.2 LAB L501.1800 3.2-5.0 g/dL Normal ALB 3.5 LAB L501.1950 2.2-4.2 g/dL Normal GLOB 3.7 LAB L501.2000 0.9-2.4 RATIO Normal A/G 0.9 LAB L501.2200 8.5-10.1 mg/dL CA Normal 9.5 LAB L501.4100 15-37 U/L High AST 48 LAB L501.4305 45-117 U/L Normal ALK P 112 LAB L501.4405 13-56 U/L High ALT 64 LAB L501.4600 0.20-1.00 mg/dL T Normal BILI 0.30 LAB L501.5300 136-145 mmol/L NA Normal 140 LAB L501.5600 3.5-5.1 mmol/L K Normal 3.7 LAB L501.5900 98-107 mmol/L CL Normal 101 LAB L501.6100 21.0-32.0 mmol/L Normal CO2 30.0 LAB L501.6200 5-15 Normal GAP 9 Performed By: #### L500.4050 #### [facility] [address] [place] [address], [id number] PROGRESS Observed: 05/23/2018 Status: COMPLETED Source: [place] 5:37 PM [facility] REPOSITORY HNO ID: [id number] Author: Sheeba King RN Service: (none) Author Type: (none) Type: Progress Notes Filed: 05/23/2018 5:37 PM Note Text: per written order by dr scott patient is to take 7.5mg Thurs and 5mg all other days PATIENT NOTIFIED OF INFORMATION PROGRESS Observed: 05/23/2018 Status: COMPLETED Source: [place] 4:07 PM [facility] REPOSITORY HNO ID: [id number] Author: Sheeba King RN Service: (none) Author Type: (none) Type: Progress Notes Filed: 05/23/2018 4:09 PM Note Text: patient had inr completed at [facility] patients inr is 2.2 (patients inr range is 3.0-4.0) patient is currently taking 2.5mg Thurs and 5mg all other days patients last dose change was on 04/12/18 due to a low level of 1.3 (dose at that time was 2.5mg daily) patient has had no changes in medication and no missed doses and no change in diet Advised patient that they would be contacted regarding medication dose and when to follow up after information is reviewed by provider. After provider review please contact the patient with information and schedule follow up appointment with coumadin clinic. FYI - patient has been scheduled for an inr follow up on (05/28/18) per pt request PROGRESS Observed: 05/16/2018 Status: COMPLETED Source: [place] 10:00 AM [facility] REPOSITORY HNO ID: [id number] Author: Livia Scott Service: (none) Author Type: Physician Type: Progress Notes Filed: 05/29/2018 12:48 AM Note Text: Patient presents for DM SMA with Dr. Scott and Brian Farah, FarshadD GOALS: A1c < 7% Debora Meyers is a 52 year old female was last seen by PCP, Dr. Scott on 04/24/18 At last PCP visit patient was continued on current regimen Reports concerns over low BGs Would like more information on diet and carbs Current DM Medications: Insulin glargine 40 units BID Insulin lispro 30 units TID meals (reports taking after meals) ? Patient denies CP, SOB, CARRERA, blurred vision, dizziness or lightheadedness ? Patient denies symptoms of hypoglycemia (sweating, anxiety, palpitations, hunger, and tremor) ? Patient denies symptoms hyperglycemia (polyuria, polydipsia) ? Patient denies potential medication adverse effects DIET/EXERCISE/SOCIAL Hx: ? Breakfast: 3/4 cup cheerios this morning, sometimes just coffee ? Meals vary widely ALLERGIES Allergen Reactions - Environmental [Othe* Rash, Cough - Vitamin K Swelling - Cholestyramine Other: See Comments constipation - Ibuprofen Diarrhea - Macrobid [Nitrofura* Rash states that broke out all over with rash last time was given this in September 2010 - Peroxide [Other] Intolerance - Sulfa (Sulfonamide * Rash - Tylenol [Acetaminop* Vomiting Nausea PAST MEDICAL HISTORY Diagnosis Date - Allergic rhinitis used to receive allergy shots from Dr. Brown - Alopecia, unspecified 08/29/2012 - Anticoagulated on Coumadin INR goal 3.0 to 4.0 - Asthma - Benign neoplasm of stomach - Bipolar disorder, unspecified 08/29/2012 - Diabetes mellitus type 2, controlled, without complications (HCC) 08/12/2007 In records from treatment after elevated sugars in 2001 during hospital stay; no longer on any meds and sugars have been fine--either normal or just in impaired fasting glucose level - Embolism and thrombosis (HCC) 08/14/2005 - Environmental allergies 01/17/2012 - Exostosis of unspecified site 09/27/2010 - Fibromyalgia - Goiter, unspecified - Hypothyroidism 10/28/2009 - Nausea alone - Obesity - STACY treated with BiPAP [facility] supplier - Other diseases of lung, not elsewhere classified - Other hammer toe (acquired) 09/27/2010 - RA (rheumatoid arthritis) (HCC) - 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 also elevated BMI . RECOMMENDATIONS are 1.weight loss.2. not seen significant sleep apnea however absense or REM sleep sleep apnea may be understimated.Extrinsic factors leading to excessive daytime somnolence such as mood disturbances and or medication effect may be a factor Current Outpatient Prescriptions: loratadine (CLARITIN) 10 mg tablet Take 1 tablet by mouth once daily. topiramate (TOPAMAX) 50 mg tablet Take 1 tablet by mouth twice daily. verapamil (CALAN, ISOPTIN) 40 mg tablet Take 1 tablet by mouth three times daily. atorvastatin (LIPITOR) 10 mg tablet Take 1 tablet by mouth daily at bedtime. For cholesterol. dicyclomine (BENTYL) 10 mg capsule Take 1 capsule by mouth four times daily as needed (cramping pains and urgency with bowels). diphenoxylate-atropine (LOMOTIL) 2.5-0.025 mg per tablet Take 1 tablet by mouth before meals and at bedtime for 90 days. as needed insulin glargine (LANTUS SOLOSTAR U-100 INSULIN) 100 unit/mL (3 mL) inpn Inject 40 Units subcutaneously twice daily. ondansetron (ZOFRAN) 4 mg tablet Take 1 tablet by mouth every 8 hours as needed for Nausea/Vomiting. rOPINIRole (REQUIP) 1 mg tablet Take 0.5-1 tablets by mouth three times daily. As directed insulin lispro (HUMALOG KWIKPEN INSULIN) 100 unit/mL inpn Inject 30 Units subcutaneously w MEALS. Three times daily levothyroxine (LEVOXYL) 100 mcg tablet Take 1 tablet by mouth daily before breakfast. blood sugar diagnostic (TRUE METRIX GLUCOSE TEST STRIP) test strip Test blood sugar 4 x daily. Dx: E11.22. Insulin use: Yes adalimumab (HUMIRA) 40 mg/0.8 mL injection Inject 40 mg subcutaneously one time only. nystatin (MYCOSTATIN) 100,000 unit/mL suspension 1 tsp swish and swallow until gone, 4 times daily fluticasone (FLONASE) 50 mcg/actuation nasal spray Use 1-2 Sprays in each nostril once daily. potassium chloride ER (K-DUR, KLOR-CON) 10 mEq tablet Take 1 tablet by mouth twice daily. clonazePAM (KLONOPIN) 1 mg tablet Take 0.5-1 tablets by mouth daily at bedtime for 90 days. enoxaparin (LOVENOX) 40 mg/0.4 mL syrg 40 mg subcutaneous every 12 hours starting February 08 in the morning; take only the morning dose February 10; do not take February 11 (day of procedure); resume 40 mg every 12 hours starting evening of February 12 through morning dose February 18; do not take February 19 (day of dental procedure); resume 40 mg every 12 hours starting evening of February 20 and continue until INR therapeutic Cetirizine (ZYRTEC) 10 mg cap Take by mouth daily at bedtime. fluticasone-vilanterol (BREO ELLIPTA) 200-25 mcg/dose inhaler Inhale 1 Inhalation as instructed once daily. albuterol HFA (PROVENTIL HFA, VENTOLIN HFA) 90 mcg/actuation inhaler Inhale 2 Puffs as instructed every 4 hours as needed (for cough, wheezing, chest tightness or shortness of breath. Use with spacer. ). gabapentin (NEURONTIN) 300 mg capsule Take 1 in the morning, 1 at lunch, 3 at bedtime daily furosemide (LASIX) 40 mg tablet Take 1 tablet by mouth once daily. May take one additional pill, PRN for increased swelling Benzonatate 200 mg capsule Take 1 capsule by mouth three times daily as needed. triamcinolone acetonide (KENALOG) 0.1 % cream Apply 1 application to affected area three times daily as needed (itchy rash/psoriasis on hands). Apply sparingly insulin needles, DISPOSABLE, (BD INSULIN PEN NEEDLE UF) 31 gauge x 5/16 ndle Use with insulin pens 4 times daily as directed insulin needles, DISPOSABLE, (UNIFINE PENTIPS) 31 gauge x 5/16 ndle Inject 1 Each subcutaneously four times daily. lisinopril 2.5 mg tablet TAKE 1 TABLET BY MOUTH EVERY DAY cholecalciferol (VITAMIN D3) 5,000 unit tab Take 1 tablet by mouth once daily. warfarin (COUMADIN) 7.5 mg tablet Take 1 tablet by mouth daily as directed. warfarin (COUMADIN) 5 mg tablet Take 1 tablet by mouth once daily. SHENG - 7.5mg , sun and 5mg all other days or as directed multivitamin with minerals (HAIR,SKIN AND NAILS) tablet Take 1 tablet by mouth three times daily. alpha tocopheryl acetate (VITAMIN E) 400 unit capsule Take 2 capsules by mouth once daily. Omeprazole 40 mg capsule Take 1 capsule by mouth once daily. sucralfate (CARAFATE) 100 mg/mL suspension Take 10 mL by mouth four times daily as needed. As directed (usually before meals and bedtime as needed) COMPOUNDED PRESCRIPTION SHOWER CHAIR WITH BACK DX M06.9 I74.9 COMPOUNDED PRESCRIPTION SUCTION STYLE GRAB BAR FOR SHOWER WALL INSTALLATION DX M 06.9 I 74.9 albuterol HFA (PROAIR HFA) 90 mcg/actuation inhaler Inhale 2 Puffs as instructed every 4 hours as needed for Wheezing/Shortness of Breath. oxyCODONE-acetaminophen (PERCOCET) 5-325 mg tablet Take 1 tablet by mouth every 4 hours as needed. COUMADIN 1 mg tablet take 5mg daily except for Sunday, take 7.5 mg on Sunday or as directedDO NOT SUBSITUTE WITH GENERIC. QUEtiapine (SEROQUEL) 25 mg tablet Take 1 tablet by mouth twice daily. albuterol (PROVENTIL) 2.5 mg /3 mL (0.083 %) nebulizer solution Use 3 mL via nebulizer every 6 hours as needed. Blood Pressure Test Kit-Wrist kit Use to check blood pressure once daily as directed DX:I10 hydroxychloroquine (PLAQUENIL) 200 mg tablet Take 1 tablet by mouth once daily. budesonide-formoterol (SYMBICORT) 160-4.5 mcg/actuation inhaler Inhale 2 Puffs as instructed twice daily. tiZANidine (ZANAFLEX) 4 mg tablet Take 1 tablet by mouth every 8 hours as needed (muscle spasms). Dr Wetzel CALCIUM CARB/MAGNESIUM OX,CARB (YASMINE-MAG ORAL) Take by mouth. nystatin (MYCOSTATIN) cream Apply 1 application to affected area twice daily. As needed escitalopram oxalate (LEXAPRO) 20 mg tablet Take 1 tablet by mouth once daily. COMPOUNDED PRESCRIPTION Morphine 15 mg per pump filled every [address] Wetzel Lactobacillus acidophilus (PROBIOTIC) 10 billion cell cap Take 2 tablets by mouth daily at bedtime. vitamin b complex (B COMPLETE) tab Take 1 tablet by mouth once daily. COMPOUNDED PRESCRIPTION Decrease BiPAP settings to 11/5 cmH2O. Diagnosis G47.33 Miscellaneous Medical Supply [facility] [place] CUSTOM JOBST KNEE HI COMPRESSION STOCKING 30-40MM/HG. Dispense 2 pair Diagnosis:(I87.2) Venous insufficiency of both lower extremities; (R60.9) Edema ketoconazole (NIZORAL) 2 % cream Apply 1 application to affected area once daily. as needed to corners of lips and other rash as directed [place]-3 Fatty Acids-Vitamin E (FISH OIL) 1,000 mg cap Take 1 capsule by mouth three times daily. traZODONE 100 mg ORAL tablet Take 2 tablets by mouth daily at bedtime. (Dr. Ruano--noted that 1 pill not adequate) No current facility-administered medications for this visit. GLYCEMIC CONTROL: ? Hypoglycemia: yes, between 230-430pm, 59 and 67 VITALS: There were no vitals taken for this visit. Last 3 Encounter BP Readings: Date: BP: 04/24/2018 114/80 04/09/2018 136/82 01/22/2018 141/85 Wt: 122.5 kg (270 lb) BMI: 52.73 kg/(m2) LABS Lab Results Component Value Date HBA1C 8.4 04/12/2018 HBA1C 8.4 11/13/2017 HBA1C 7.1 07/28/2017 CMP: Glucose 220 04/12/2018 BUN 30 04/12/2018 Creatinine, Whole Blood (iSTAT) 1.62 04/12/2018 Sodium 137 04/12/2018 Potassium 4.2 04/12/2018 Chloride 97 04/12/2018 CO2 26 04/12/2018 Protein, Total 7.0 04/12/2018 Albumin 4.2 04/12/2018 Calcium 9.5 04/12/2018 Alkaline Phosphatase 92 04/12/2018 Bilirubin, Total 0.3 04/12/2018 AST 43 04/12/2018 ALT 49 04/12/2018 Estimated Creatinine Clearance: 50 mL/min (A) (based on SCr of 1.62 mg/dL (H)). Last Lipid Panel Lab Results Component Value Date CHOL 284 04/12/2018 Lab Results Component Value Date HDL 52 04/12/2018 Lab Results Component Value Date LDL 163 04/12/2018 Lab Results Component Value Date TG 343 04/12/2018 Albumin/Creat Ratio (mg/g) Date Value 04/12/2018 83 (H) Encounter Diagnosis ICD-10-CM 1. 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 Anxiety F41.9 clonazePAM (KLONOPIN) 1 mg tablet 3. Psychophysiological insomnia F51.04 clonazePAM (KLONOPIN) 1 mg tablet 4. Diarrhea, unspecified type R19.7 BRIAN FARAH PHARMACIST Patient is scheduled to see PCP 08/12/18. Patient to return to clinic for PharmD f/u in prn. Patient verbalized understanding of instructions. Dr. Scott and Brian Farah, PharmD Patient see after DM SMA to discuss a few more issues: Diarrhea worse than usual All through the day. Past week. Too many Alta. Cut that out. Getting better since cut out the frequent Alta. Also needed refill on clonazepam. Stable on med without adverse effects. Benefits outweigh risks at this time. PDMP website checked and validated. All prescriptions have been APPROPRIATELY filled. No suspicious activity was identified. 05/29/2018 by Livia Scott MD Above issues addressed with patient. Patient involved in shared decision making for management of her medical issues. History and medications reviewed. Epic updated as needed Refills taken care of and meds adjusted as indicated after reviewed history, exam and labs. Health Maintenance reviewed. Updated record and/or ordered tests as recorded. Encouraged on efforts at healthy diet and regular exercise and adequate sleep. The patient was seen; chart reviewed and I concur with the above evaluation and plan. PharmD and I discussed with DM SMA group medications for management of DM, HTN and lipids. Also reviewed diet and exercise to help with control of DM. Discussed with each patient individual meds and management of their diabetes issues. Brian discussed with patient and group how to manage hypoglycemic episodes. Will adjust meds as indicated. She is to keep log of sugars and also make sure to get enough carbs at meals. Noted reason for lows was related to her dieting attempts and not getting enough carbs with her meals while taking same amount of insulin as would with a normal meal. Can work with Brian one on one as needed. MD Livia Costa MD CNOV Observed: 05/16/2018 Status: COMPLETED Source: [facility] 10:00 AM [facility] REPOSITORY Office Visit (INTMWS) LUIGIDEBORA ([id number]) 1965 F Date Time Provider Department 05/16/18 10:00 AM LIVIA SCOTT INTMWS During your visit today, we recorded the following information about you: Livia Scott MD 05/29/2018 12:48 AM Signed Patient presents for DM SMA with Dr. Scott and Brian Farah PharmD GOALS: A1c < 7% Debora Meyers is a 52 year old female was last seen by PCP, Dr. Scott on 04/24/18 At last PCP visit patient was continued on current regimen Reports concerns over low BGs Would like more information on diet and carbs Current DM Medications: Insulin glargine 40 units BID Insulin lispro 30 units TID meals (reports taking after meals) ? Patient denies CP, SOB, CARRERA, blurred vision, dizziness or lightheadedness ? Patient denies symptoms of hypoglycemia (sweating, anxiety, palpitations, hunger, and tremor) ? Patient denies symptoms hyperglycemia (polyuria, polydipsia) ? Patient denies potential medication adverse effects DIET/EXERCISE/SOCIAL Hx: ? Breakfast: 3/4 cup cheerios this morning, sometimes just coffee ? Meals vary widely ALLERGIES Allergen Reactions - Environmental [Othe* Rash, Cough - Vitamin K Swelling - Cholestyramine Other: See Comments constipation - Ibuprofen Diarrhea - Macrobid [Nitrofura* Rash states that broke out all over with rash last time was given this in September 2010 - Peroxide [Other] Intolerance - Sulfa (Sulfonamide * Rash - Tylenol [Acetaminop* Vomiting Nausea PAST MEDICAL HISTORY Diagnosis Date - Allergic rhinitis used to receive allergy shots from Dr. Brown - Alopecia, unspecified 08/29/2012 - Anticoagulated on Coumadin INR goal 3.0 to 4.0 - Asthma - Benign neoplasm of stomach - Bipolar disorder, unspecified 08/29/2012 - Diabetes mellitus type 2, controlled, without complications (HCC) 08/12/2007 In records from treatment after elevated sugars in 2001 during hospital stay; no longer on any meds and sugars have been fine--either normal or just in impaired fasting glucose level - Embolism and thrombosis (HCC) 08/14/2005 - Environmental allergies 01/17/2012 - Exostosis of unspecified site 09/27/2010 - Fibromyalgia - Goiter, unspecified - Hypothyroidism 10/28/2009 - Nausea alone - Obesity - STACY treated with BiPAP [facility] supplier - Other diseases of lung, not elsewhere classified - Other hammer toe (acquired) 09/27/2010 - RA (rheumatoid arthritis) (HCC) - 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 also elevated BMI . RECOMMENDATIONS are 1.weight loss.2. not seen significant sleep apnea however absense or REM sleep sleep apnea may be understimated.Extrinsic factors leading to excessive daytime somnolence such as mood disturbances and or medication effect may be a factor Current Outpatient Prescriptions: loratadine (CLARITIN) 10 mg tablet Take 1 tablet by mouth once daily. topiramate (TOPAMAX) 50 mg tablet Take 1 tablet by mouth twice daily. verapamil (CALAN, ISOPTIN) 40 mg tablet Take 1 tablet by mouth three times daily. atorvastatin (LIPITOR) 10 mg tablet Take 1 tablet by mouth daily at bedtime. For cholesterol. dicyclomine (BENTYL) 10 mg capsule Take 1 capsule by mouth four times daily as needed (cramping pains and urgency with bowels). diphenoxylate-atropine (LOMOTIL) 2.5-0.025 mg per tablet Take 1 tablet by mouth before meals and at bedtime for 90 days. as needed insulin glargine (LANTUS SOLOSTAR U-100 INSULIN) 100 unit/mL (3 mL) inpn Inject 40 Units subcutaneously twice daily. ondansetron (ZOFRAN) 4 mg tablet Take 1 tablet by mouth every 8 hours as needed for Nausea/Vomiting. rOPINIRole (REQUIP) 1 mg tablet Take 0.5-1 tablets by mouth three times daily. As directed insulin lispro (HUMALOG KWIKPEN INSULIN) 100 unit/mL inpn Inject 30 Units subcutaneously w MEALS. Three times daily levothyroxine (LEVOXYL) 100 mcg tablet Take 1 tablet by mouth daily before breakfast. blood sugar diagnostic (TRUE METRIX GLUCOSE TEST STRIP) test strip Test blood sugar 4 x daily. Dx: E11.22. Insulin use: Yes adalimumab (HUMIRA) 40 mg/0.8 mL injection Inject 40 mg subcutaneously one time only. nystatin (MYCOSTATIN) 100,000 unit/mL suspension 1 tsp swish and swallow until gone, 4 times daily fluticasone (FLONASE) 50 mcg/actuation nasal spray Use 1-2 Sprays in each nostril once daily. potassium chloride ER (K-DUR, KLOR-CON) 10 mEq tablet Take 1 tablet by mouth twice daily. clonazePAM (KLONOPIN) 1 mg tablet Take 0.5-1 tablets by mouth daily at bedtime for 90 days. enoxaparin (LOVENOX) 40 mg/0.4 mL syrg 40 mg subcutaneous every 12 hours starting February 08 in the morning; take only the morning dose February 10; do not take February 11 (day of procedure); resume 40 mg every 12 hours starting evening of February 12 through morning dose February 18; do not take February 19 (day of dental procedure); resume 40 mg every 12 hours starting evening of February 20 and continue until INR therapeutic Cetirizine (ZYRTEC) 10 mg cap Take by mouth daily at bedtime. fluticasone-vilanterol (BREO ELLIPTA) 200-25 mcg/dose inhaler Inhale 1 Inhalation as instructed once daily. albuterol HFA (PROVENTIL HFA, VENTOLIN HFA) 90 mcg/actuation inhaler Inhale 2 Puffs as instructed every 4 hours as needed (for cough, wheezing, chest tightness or shortness of breath. Use with spacer. ). gabapentin (NEURONTIN) 300 mg capsule Take 1 in the morning, 1 at lunch, 3 at bedtime daily furosemide (LASIX) 40 mg tablet Take 1 tablet by mouth once daily. May take one additional pill, PRN for increased swelling Benzonatate 200 mg capsule Take 1 capsule by mouth three times daily as needed. triamcinolone acetonide (KENALOG) 0.1 % cream Apply 1 application to affected area three times daily as needed (itchy rash/psoriasis on hands). Apply sparingly insulin needles, DISPOSABLE, (BD INSULIN PEN NEEDLE UF) 31 gauge x 5/16 ndle Use with insulin pens 4 times daily as directed insulin needles, DISPOSABLE, (UNIFINE PENTIPS) 31 gauge x 5/16 ndle Inject 1 Each subcutaneously four times daily. lisinopril 2.5 mg tablet TAKE 1 TABLET BY MOUTH EVERY DAY cholecalciferol (VITAMIN D3) 5,000 unit tab Take 1 tablet by mouth once daily. warfarin (COUMADIN) 7.5 mg tablet Take 1 tablet by mouth daily as directed. warfarin (COUMADIN) 5 mg tablet Take 1 tablet by mouth once daily. SHENG - 7.5mg , sun and 5mg all other days or as directed multivitamin with minerals (HAIR,SKIN AND NAILS) tablet Take 1 tablet by mouth three times daily. alpha tocopheryl acetate (VITAMIN E) 400 unit capsule Take 2 capsules by mouth once daily. Omeprazole 40 mg capsule Take 1 capsule by mouth once daily. sucralfate (CARAFATE) 100 mg/mL suspension Take 10 mL by mouth four times daily as needed. As directed (usually before meals and bedtime as needed) COMPOUNDED PRESCRIPTION SHOWER CHAIR WITH BACK DX M06.9 I74.9 COMPOUNDED PRESCRIPTION SUCTION STYLE GRAB BAR FOR SHOWER WALL INSTALLATION DX M 06.9 I 74.9 albuterol HFA (PROAIR HFA) 90 mcg/actuation inhaler Inhale 2 Puffs as instructed every 4 hours as needed for Wheezing/Shortness of Breath. oxyCODONE-acetaminophen (PERCOCET) 5-325 mg tablet Take 1 tablet by mouth every 4 hours as needed. COUMADIN 1 mg tablet take 5mg daily except for Sunday, take 7.5 mg on Sunday or as directedDO NOT SUBSITUTE WITH GENERIC. QUEtiapine (SEROQUEL) 25 mg tablet Take 1 tablet by mouth twice daily. albuterol (PROVENTIL) 2.5 mg /3 mL (0.083 %) nebulizer solution Use 3 mL via nebulizer every 6 hours as needed. Blood Pressure Test Kit-Wrist kit Use to check blood pressure once daily as directed DX:I10 hydroxychloroquine (PLAQUENIL) 200 mg tablet Take 1 tablet by mouth once daily. budesonide-formoterol (SYMBICORT) 160-4.5 mcg/actuation inhaler Inhale 2 Puffs as instructed twice daily. tiZANidine (ZANAFLEX) 4 mg tablet Take 1 tablet by mouth every 8 hours as needed (muscle spasms). Dr Wetzel CALCIUM CARB/MAGNESIUM OX,CARB (YASMINE-MAG ORAL) Take by mouth. nystatin (MYCOSTATIN) cream Apply 1 application to affected area twice daily. As needed escitalopram oxalate (LEXAPRO) 20 mg tablet Take 1 tablet by mouth once daily. COMPOUNDED PRESCRIPTION Morphine 15 mg per pump filled every [address] Wetzel Lactobacillus acidophilus (PROBIOTIC) 10 billion cell cap Take 2 tablets by mouth daily at bedtime. vitamin b complex (B COMPLETE) tab Take 1 tablet by mouth once daily. COMPOUNDED PRESCRIPTION Decrease BiPAP settings to 11/5 cmH2O. Diagnosis G47.33 Miscellaneous Medical Supply [facility] [place] CUSTOM JOBST KNEE HI COMPRESSION STOCKING 30-40MM/HG. Dispense 2 pair Diagnosis:(I87.2) Venous insufficiency of both lower extremities; (R60.9) Edema ketoconazole (NIZORAL) 2 % cream Apply 1 application to affected area once daily. as needed to corners of lips and other rash as directed [place]-3 Fatty Acids-Vitamin E (FISH OIL) 1,000 mg cap Take 1 capsule by mouth three times daily. traZODONE 100 mg ORAL tablet Take 2 tablets by mouth daily at bedtime. (Dr. Ruano--noted that 1 pill not adequate) No current facility-administered medications for this visit. GLYCEMIC CONTROL: ? Hypoglycemia: yes, between 230-430pm, 59 and 67 VITALS: There were no vitals taken for this visit. Last 3 Encounter BP Readings: Date: BP: 04/24/2018 114/80 04/09/2018 136/82 01/22/2018 141/85 Wt: 122.5 kg (270 lb) BMI: 52.73 kg/(m2) LABS Lab Results Component Value Date HBA1C 8.4 04/12/2018 HBA1C 8.4 11/13/2017 HBA1C 7.1 07/28/2017 CMP: Glucose 220 04/12/2018 BUN 30 04/12/2018 Creatinine, Whole Blood (iSTAT) 1.62 04/12/2018 Sodium 137 04/12/2018 Potassium 4.2 04/12/2018 Chloride 97 04/12/2018 CO2 26 04/12/2018 Protein, Total 7.0 04/12/2018 Albumin 4.2 04/12/2018 Calcium 9.5 04/12/2018 Alkaline Phosphatase 92 04/12/2018 Bilirubin, Total 0.3 04/12/2018 AST 43 04/12/2018 ALT 49 04/12/2018 Estimated Creatinine Clearance: 50 mL/min (A) (based on SCr of 1.62 mg/dL (H)). Last Lipid Panel Lab Results Component Value Date CHOL 284 04/12/2018 Lab Results Component Value Date HDL 52 04/12/2018 Lab Results Component Value Date LDL 163 04/12/2018 Lab Results Component Value Date TG 343 04/12/2018 Albumin/Creat Ratio (mg/g) Date Value 04/12/2018 83 (H) Encounter Diagnosis ICD-10-CM 1. 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 Anxiety F41.9 clonazePAM (KLONOPIN) 1 mg tablet 3. Psychophysiological insomnia F51.04 clonazePAM (KLONOPIN) 1 mg tablet 4. Diarrhea, unspecified type R19.7 BRIAN FARAH PHARMACIST Patient is scheduled to see PCP 08/12/18. Patient to return to clinic for PharmD f/u in prn. Patient verbalized understanding of instructions. Dr. Scott and Farshad RomoD Patient see after DM SMA to discuss a few more issues: Diarrhea worse than usual All through the day. Past week. Too many Alta. Cut that out. Getting better since cut out the frequent Alta. Also needed refill on clonazepam. Stable on med without adverse effects. Benefits outweigh risks at this time. PDMP website checked and validated. All prescriptions have been APPROPRIATELY filled. No suspicious activity was identified. 05/29/2018 by Livia Scott MD Above issues addressed with patient. Patient involved in shared decision making for management of her medical issues. History and medications reviewed. Epic updated as needed Refills taken care of and meds adjusted as indicated after reviewed history, exam and labs. Health Maintenance reviewed. Updated record and/or ordered tests as recorded. Encouraged on efforts at healthy diet and regular exercise and adequate sleep. The patient was seen; chart reviewed and I concur with the above evaluation and plan. PharmD and I discussed with DM SMA group medications for management of DM, HTN and lipids. Also reviewed diet and exercise to help with control of DM. Discussed with each patient individual meds and management of their diabetes issues. Brian discussed with patient and group how to manage hypoglycemic episodes. Will adjust meds as indicated. She is to keep log of sugars and also make sure to get enough carbs at meals. Noted reason for lows was related to her dieting attempts and not getting enough carbs with her meals while taking same amount of insulin as would with a normal meal. Can work with Brian one on one as needed. MD Livia Costa MD ANNA BONDAR, PHARMACIST 05/16/2018 10:41 AM Signed Make sure to take the meal-time insulin Humalog 30 units right before you eat a meal If just having coffee, do not take the Humalog Call Brian with your sugar numbers on May 21 Brian Farah PharmD, [facility] [phone] Referring Provider: SELF [[id number]] Allergies As of Date: 05/16/2018 Noted Allergy Reaction environmental [Other] 07/14/2005 2 - Rash 3 - Cough VITAMIN K 07/14/2005 7 - Swelling CHOLESTYRAMINE 03/31/2013 14 - Other: See Comments Comments: constipation IBUPROFEN 06/29/2009 6 - Diarrhea MACROBID (NITROFURANTOIN MONOHYD/*12/06/2010 2 - Rash Comments: states that broke out all over with rash last time was given this in September 2010 peroxide [Other] 07/14/2005 5 - Intolerance SULFA (SULFONAMIDE ANTIBIOTICS) 02/05/2013 2 - Rash TYLENOL (ACETAMINOPHEN) 03/17/2014 11 - Vomiting Comments: Nausea Date Reviewed: 05/16/2018 Reviewed by: Venecia Avila LPN - Fully Assessed Reason for Visit: SMA-Previsit Assessment [3647] Reason For Visit History Recorded Primary Visit Diagnosis:Type 2 DM with CKD stage 3 and hypertension (HCC) [E11.22, I12.9, N18.3] Other Visit Diagnoses:Anxiety [F41.9] Psychophysiological insomnia [F51.04] Diarrhea, unspecified type [R19.7] Order(s):clonazePAM (KLONOPIN) 1 mg tabletTake 0.5-1 tablets by mouth daily at bedtime for 90 days.Disp: 30 tabletRfl: 2 Prescriptions as of 05/16/2018 Sig: CLONAZEPAM 1 MG TABLET Take 0.5-1 tablets by mouth d* LORATADINE 10 MG TABLET Take 1 tablet by mouth once d* TOPIRAMATE 50 MG TABLET Take 1 tablet by mouth twice * VERAPAMIL 40 MG TABLET Take 1 tablet by mouth three * ATORVASTATIN 10 MG TABLET Take 1 tablet by mouth daily * DICYCLOMINE 10 MG CAPSULE Take 1 capsule by mouth four * DIPHENOXYLATE-ATROPINE 2.5 MG* Take 1 tablet by mouth before* INSULIN GLARGINE (U-100) 100 * Inject 40 Units subcutaneousl* ONDANSETRON HCL 4 MG TABLET Take 1 tablet by mouth every * ROPINIROLE 1 MG TABLET Take 0.5-1 tablets by mouth t* INSULIN LISPRO (U-100) 100 UN* Inject 30 Units subcutaneousl* LEVOTHYROXINE 100 MCG TABLET Take 1 tablet by mouth daily * BLOOD SUGAR DIAGNOSTIC STRIPS Test blood sugar 4 x daily. D* ADALIMUMAB 40 MG/0.8 ML SUBCU* Inject 40 mg subcutaneously o* NYSTATIN 100,000 UNIT/ML ORAL* 1 tsp swish and swallow until* FLUTICASONE 50 MCG/ACTUATION * Use 1-2 Sprays in each nostri* POTASSIUM CHLORIDE ER 10 MEQ * Take 1 tablet by mouth twice * ENOXAPARIN 40 MG/0.4 ML SUBCU* 40 mg subcutaneous every 12 h* CETIRIZINE 10 MG CAPSULE Take by mouth daily at bedtim* FLUTICASONE 200 MCG-VILANTERO* Inhale 1 Inhalation as instru* ALBUTEROL SULFATE HFA 90 MCG/* Inhale 2 Puffs as instructed * GABAPENTIN 300 MG CAPSULE Take 1 in the morning, 1 at l* FUROSEMIDE 40 MG TABLET Take 1 tablet by mouth once d* BENZONATATE 200 MG CAPSULE Take 1 capsule by mouth three* TRIAMCINOLONE ACETONIDE 0.1 %* Apply 1 application to affect* PEN NEEDLE, DIABETIC 31 GAUGE* Use with insulin pens 4 times* PEN NEEDLE, DIABETIC 31 GAUGE* Inject 1 Each subcutaneously * LISINOPRIL 2.5 MG TABLET TAKE 1 TABLET BY MOUTH EVERY * CHOLECALCIFEROL (VITAMIN D3) * Take 1 tablet by mouth once d* WARFARIN 7.5 MG TABLET Take 1 tablet by mouth daily * WARFARIN 5 MG TABLET Take 1 tablet by mouth once d* MULTIVITAMIN WITH MINERALS TA* Take 1 tablet by mouth three * VITAMIN E 400 UNIT CAPSULE Take 2 capsules by mouth once* OMEPRAZOLE 40 MG CAPSULE,LALITO* Take 1 capsule by mouth once * SUCRALFATE 100 MG/ML ORAL BART* Take 10 mL by mouth four time* COMPOUNDED PRESCRIPTION SHOWER CHAIR WITH BACK D* COMPOUNDED PRESCRIPTION SUCTION STYLE GRAB BAR FOR SH* ALBUTEROL SULFATE HFA 90 MCG/* Inhale 2 Puffs as instructed * OXYCODONE-ACETAMINOPHEN 5 MG-* Take 1 tablet by mouth every * COUMADIN 1 MG TABLET take 5mg daily except for Sun* QUETIAPINE 25 MG TABLET Take 1 tablet by mouth twice * ALBUTEROL SULFATE 2.5 MG/3 ML* Use 3 mL via nebulizer every * BLOOD PRESSURE TEST KIT-WRIST* Use to check blood pressure o* HYDROXYCHLOROQUINE 200 MG TAB* Take 1 tablet by mouth once d* BUDESONIDE-FORMOTEROL HFA 160* Inhale 2 Puffs as instructed * TIZANIDINE 4 MG TABLET Take 1 tablet by mouth every * YASMINE-MAG ORAL Take by mouth. NYSTATIN 100,000 UNIT/GRAM TO* Apply 1 application to affect* ESCITALOPRAM 20 MG TABLET Take 1 tablet by mouth once d* COMPOUNDED PRESCRIPTION Morphine 15 mg per pump fille* LACTOBACILLUS ACIDOPHILUS 10 * Take 2 tablets by mouth daily* VITAMIN B COMPLEX TABLET Take 1 tablet by mouth once d* COMPOUNDED PRESCRIPTION Decrease BiPAP settings to 11* MISCELLANEOUS MEDICAL SUPPLY * CUSTOM JOBST KNEE HI KIRSTY* KETOCONAZOLE 2 % TOPICAL CREAM Apply 1 application to affect* OMEGA-3 FATTY ACIDS-VITAMIN E* Take 1 capsule by mouth three* TRAZODONE 100 MG TABLET Take 2 tablets by mouth daily* Problem List As Of Date 05/16/2018 Noted Resolved OTHER LUNG DISEASE NEC [J98.4] Asthma [J45.909] OTHER UNSPEC SLEEP APNEA [G47.30] Dysmetabolic syndrome X [E88.81] 09/11/2011 Fibromyalgia [FMQ3755] Embolism and thrombosis (HCC) [I74.9] INVALID FOR*05/05/2018 GOITER NOS [E04.9] REFLUX ESOPHAGITIS [K21.0] NAUSEA ALONE [R11.0] ACUTE GASTRITIS W/O HEMORRHAGE [K29.00] INVALID FOR* CONSTIPATION NOS [K59.00] INVALID FOR* More... 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 Obstructive Sleep Apnea [G47.33] INVALID FOR* More... Hypothyroidism [E03.9] INVALID FOR* Exostosis of unspecified site [M89.8X9] INVALID FOR*11/27/2017 Other hammer toe (acquired) [M20.40] INVALID FOR*11/27/2017 Hx of hysterectomy [Z90.710] INVALID FOR* More... Allergic rhinitis [J30.9] More... 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] INVALID FOR* Environmental allergies [Z91.09] INVALID FOR*11/27/2017 Morbid obesity due to excess calories (HCC) [E6* Chronic kidney disease, stage III (moderate) [N*INVALID FOR*11/27/2017 Essential hypertension [I10] INVALID FOR* Nephrolithiasis [N20.0] INVALID FOR* Vitamin D deficiency [E55.9] INVALID FOR* Rheumatoid arthritis (HCC) [M06.9] INVALID FOR* Bipolar disorder, unspecified [F31.9] INVALID FOR* Alopecia, unspecified [L65.9] INVALID FOR*11/27/2017 Personal history of pulmonary embolism [Z86.711]INVALID FOR* Irritable bowel syndrome [K58.9] INVALID FOR* Neuropathy [G62.9] INVALID FOR* Incisional hernia [K43.2] INVALID FOR* Polycythemia, secondary [D75.1] INVALID FOR* Anticoagulated on Coumadin [Z51.81, Z79.01] INVALID FOR* STACY treated with BiPAP [G47.33] More... Type 2 DM with CKD stage 3 and hypertension (HC*INVALID FOR* Polypharmacy [Z79.899] INVALID FOR* Noncompliance with treatment [Z91.19] INVALID FOR* CKD (chronic kidney disease) stage 4, GFR 15-29*INVALID FOR*08/26/2017 Nonallergic rhinitis [J31.0] INVALID FOR* History of deep vein thrombosis [Z86.718] INVALID FOR* Hypoxemia [R09.02] INVALID FOR* More... Other instructions from your clinician: Make sure to take the meal-time insulin Humalog 30 units right before you eat a meal If just having coffee, do not take the Humalog Call Brian with your sugar numbers on May 21 Brian Farah, PharmD, [facility] [phone] Prescriptions ordered this encounter Disp Refills Start End CLONAZEPAM 1 MG TABLET 30 t* 2 05/16/2018 08/14/2018 Class: Print RX Route: ORAL Sig: Take 0.5-1 tablets by mouth daily at bedtime for 90 days. Medications Discontinued During This Encounter clonazePAM (KLONOPIN) 1 mg tablet 30 t* 2 02/12/2018 05/16/2018 Class: Print RX Route: ORAL Sig: Take 0.5-1 tablets by mouth daily at bedtime for 90 days. Disc: Reason for discontinue is not on file. Disposition: Return in about 3 months (around 08/16/2018) for Add DM SMA. Follow-up and Disposition History Recorded Encounter Status:Closed by LIVIA SCOTT MD on 05/29/18 OT D/C OF NON Observed: 04/30/2018 Status: F Source: [facility] 1:29 PM [facility] REPOSITORY [facility] Occupational [facility] [address] [place] [address] Fax REHABILITATION SERVICES DISCHARGE SUMMARY MR#: [id number] Acct: [id number] Name: DEBORA MEYERS Rep #: [id number] : 1965 52 From: Sheeba REYNOLDS CHT Referring Dr.: Doyle Lorenzo DO Status: REG RCR Eval Date: Discharge Date: HP - Discharge Summary - Patient Information DEBORA MEYERS was seen in my office for initial evaluation on 02/26/18. The following Plan of Care was established for this patient: Initial Frequency: 2-3x /Week Initial Duration: 4 Weeks Plan: cont with desensitization. yellow t-putty - Anticipated Interventions Anticipated Interventions: A/AAROM/PROM, Strengthening, Scar Care, Triggerpoint Release, Desensitization, Sensory Retraining, Modalities, Orthoses This patient was last seen in our office 03/18/18. Pertinent comments regarding their Occupational therapy will appear below: pt was seen for 4 visits in OT- pt has a number of cancellations during this time- pt was progressing with desensitization and PRE. pt cancelled her last apt and has not re-scheduled at this time. Pt d/c due to non attendance At this point I will be discontinuing this patient from occupational therapy. I would be happy to see this patient again in the future if found appropriate by the physician. Thank you! KENY Seo/MERON Redmond <Electronically signed by Sheeba REYNOLDS CHT> 04/30/18 1329 CC: Doyle Lorenzo DO; Livia Scott MD JAVIER Signed ANNIE Observed: 04/29/2018 Status: COMPLETED Source: [place] 12:00 AM [facility] REPOSITORY Telephone (INTMWS) DEBORA MEYERS ([id number]) 1965 F Date Time Provider Department 04/29/18 LIVIA SCOTT During your visit today, we recorded the following information about you: Tory Chong LPN 04/29/2018 11:16 AM Signed PA completed via [employer], received approval ; effective 04/29/2018-04/29/2019. PRIOR AUTHORIZATION Medication for Prior Authorization: Topiramate Other formulary meds available : Insurance Company: [email or web address] phone number: west [id number] Patient insurance ID number: [id number] Tory Chong DRIVERS LICENSE EXAMINER Tory Chong [employer]IVERS LICENSE EXAMINER 04/29/2018 11:18 AM Signed DM Wstr notified via fax. Allergies As of Date: 04/29/2018 Noted Allergy Reaction environmental [Other] 07/14/2005 2 - Rash 3 - Cough VITAMIN K 07/14/2005 7 - Swelling CHOLESTYRAMINE 03/31/2013 14 - Other: See Comments Comments: constipation IBUPROFEN 06/29/2009 6 - Diarrhea MACROBID (NITROFURANTOIN MONOHYD/*12/06/2010 2 - Rash Comments: states that broke out all over with rash last time was given this in September 2010 peroxide [Other] 07/14/2005 5 - Intolerance SULFA (SULFONAMIDE ANTIBIOTICS) 02/05/2013 2 - Rash TYLENOL (ACETAMINOPHEN) 03/17/2014 11 - Vomiting Comments: Nausea Date Reviewed: 04/24/2018 Reviewed by: Gene Mosquera - Fully Assessed Reason for Visit: Insurance Authorization [2003] Cmt: Topiramate Prescriptions as of 04/29/2018 Sig: LORATADINE 10 MG TABLET Take 1 tablet by mouth once d* TOPIRAMATE 50 MG TABLET Take 1 tablet by mouth twice * VERAPAMIL 40 MG TABLET Take 1 tablet by mouth three * ATORVASTATIN 10 MG TABLET Take 1 tablet by mouth daily * DICYCLOMINE 10 MG CAPSULE Take 1 capsule by mouth four * DIPHENOXYLATE-ATROPINE 2.5 MG* Take 1 tablet by mouth before* INSULIN GLARGINE (U-100) 100 * Inject 40 Units subcutaneousl* ONDANSETRON HCL 4 MG TABLET Take 1 tablet by mouth every * ROPINIROLE 1 MG TABLET Take 0.5-1 tablets by mouth t* INSULIN LISPRO (U-100) 100 UN* Inject 30 Units subcutaneousl* LEVOTHYROXINE 100 MCG TABLET Take 1 tablet by mouth daily * BLOOD SUGAR DIAGNOSTIC STRIPS Test blood sugar 4 x daily. D* ADALIMUMAB 40 MG/0.8 ML SUBCU* Inject 40 mg subcutaneously o* NYSTATIN 100,000 UNIT/ML ORAL* 1 tsp swish and swallow until* FLUTICASONE 50 MCG/ACTUATION * Use 1-2 Sprays in each nostri* POTASSIUM CHLORIDE ER 10 MEQ * Take 1 tablet by mouth twice * CLONAZEPAM 1 MG TABLET Take 0.5-1 tablets by mouth d* ENOXAPARIN 40 MG/0.4 ML SUBCU* 40 mg subcutaneous every 12 h* CETIRIZINE 10 MG CAPSULE Take by mouth daily at bedtim* FLUTICASONE 200 MCG-VILANTERO* Inhale 1 Inhalation as instru* ALBUTEROL SULFATE HFA 90 MCG/* Inhale 2 Puffs as instructed * GABAPENTIN 300 MG CAPSULE Take 1 in the morning, 1 at l* FUROSEMIDE 40 MG TABLET Take 1 tablet by mouth once d* BENZONATATE 200 MG CAPSULE Take 1 capsule by mouth three* TRIAMCINOLONE ACETONIDE 0.1 %* Apply 1 application to affect* PEN NEEDLE, DIABETIC 31 GAUGE* Use with insulin pens 4 times* PEN NEEDLE, DIABETIC 31 GAUGE* Inject 1 Each subcutaneously * LISINOPRIL 2.5 MG TABLET TAKE 1 TABLET BY MOUTH EVERY * CHOLECALCIFEROL (VITAMIN D3) * Take 1 tablet by mouth once d* WARFARIN 7.5 MG TABLET Take 1 tablet by mouth daily * WARFARIN 5 MG TABLET Take 1 tablet by mouth once d* MULTIVITAMIN WITH MINERALS TA* Take 1 tablet by mouth three * VITAMIN E 400 UNIT CAPSULE Take 2 capsules by mouth once* OMEPRAZOLE 40 MG CAPSULE,LALITO* Take 1 capsule by mouth once * SUCRALFATE 100 MG/ML ORAL BART* Take 10 mL by mouth four time* COMPOUNDED PRESCRIPTION SHOWER CHAIR WITH BACK D* COMPOUNDED PRESCRIPTION SUCTION STYLE GRAB BAR FOR SH* ALBUTEROL SULFATE HFA 90 MCG/* Inhale 2 Puffs as instructed * OXYCODONE-ACETAMINOPHEN 5 MG-* Take 1 tablet by mouth every * COUMADIN 1 MG TABLET take 5mg daily except for Sun* QUETIAPINE 25 MG TABLET Take 1 tablet by mouth twice * ALBUTEROL SULFATE 2.5 MG/3 ML* Use 3 mL via nebulizer every * BLOOD PRESSURE TEST KIT-WRIST* Use to check blood pressure o* HYDROXYCHLOROQUINE 200 MG TAB* Take 1 tablet by mouth once d* BUDESONIDE-FORMOTEROL HFA 160* Inhale 2 Puffs as instructed * TIZANIDINE 4 MG TABLET Take 1 tablet by mouth every * YASMINE-MAG ORAL Take by mouth. NYSTATIN 100,000 UNIT/GRAM TO* Apply 1 application to affect* ESCITALOPRAM 20 MG TABLET Take 1 tablet by mouth once d* COMPOUNDED PRESCRIPTION Morphine 15 mg per pump fille* LACTOBACILLUS ACIDOPHILUS 10 * Take 2 tablets by mouth daily* VITAMIN B COMPLEX TABLET Take 1 tablet by mouth once d* COMPOUNDED PRESCRIPTION Decrease BiPAP settings to 11* MISCELLANEOUS MEDICAL SUPPLY * CUSTOM JOBST KNEE HI KIRSTY* KETOCONAZOLE 2 % TOPICAL CREAM Apply 1 application to affect* OMEGA-3 FATTY ACIDS-VITAMIN E* Take 1 capsule by mouth three* TRAZODONE 100 MG TABLET Take 2 tablets by mouth daily* Problem List As Of Date 04/29/2018 Noted Resolved OTHER LUNG DISEASE NEC [J98.4] Asthma [J45.909] OTHER UNSPEC SLEEP APNEA [G47.30] Dysmetabolic syndrome X [E88.81] 09/11/2011 Fibromyalgia [ARR0208] Embolism and thrombosis (HCC) [I74.9] INVALID FOR* GOITER NOS [E04.9] REFLUX ESOPHAGITIS [K21.0] NAUSEA ALONE [R11.0] ACUTE GASTRITIS W/O HEMORRHAGE [K29.00] INVALID FOR* CONSTIPATION NOS [K59.00] INVALID FOR* More... 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 Obstructive Sleep Apnea [G47.33] INVALID FOR* More... Hypothyroidism [E03.9] INVALID FOR* Exostosis of unspecified site [M89.8X9] INVALID FOR*11/27/2017 Other hammer toe (acquired) [M20.40] INVALID FOR*11/27/2017 Hx of hysterectomy [Z90.710] INVALID FOR* More... Allergic rhinitis [J30.9] More... 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] INVALID FOR* Environmental allergies [Z91.09] INVALID FOR*11/27/2017 Morbid obesity due to excess calories (HCC) [E6* Chronic kidney disease, stage III (moderate) [N*INVALID FOR*11/27/2017 Essential hypertension [I10] INVALID FOR* Nephrolithiasis [N20.0] INVALID FOR* Vitamin D deficiency [E55.9] INVALID FOR* Rheumatoid arthritis (HCC) [M06.9] INVALID FOR* Bipolar disorder, unspecified [F31.9] INVALID FOR* Alopecia, unspecified [L65.9] INVALID FOR*11/27/2017 Personal history of pulmonary embolism [Z86.711]INVALID FOR* Irritable bowel syndrome [K58.9] INVALID FOR* Neuropathy [G62.9] INVALID FOR* Incisional hernia [K43.2] INVALID FOR* Polycythemia, secondary [D75.1] INVALID FOR* Anticoagulated on Coumadin [Z51.81, Z79.01] INVALID FOR* STACY treated with BiPAP [G47.33] More... Type 2 DM with CKD stage 3 and hypertension (HC*INVALID FOR* Polypharmacy [Z79.899] INVALID FOR* Noncompliance with treatment [Z91.19] INVALID FOR* CKD (chronic kidney disease) stage 4, GFR 15-29*INVALID FOR*08/26/2017 Nonallergic rhinitis [J31.0] INVALID FOR* Encounter Status:Closed by TORY CHONG LPN on 04/29/18 PROGRESS Observed: 04/24/2018 Status: COMPLETED Source: [place] 4:41 PM [facility] REPOSITORY O ID: [id number] Author: Livia Scott Service: (none) Author Type: Physician Type: Progress Notes Filed: 05/05/2018 11:01 PM Note Text: Patient presents with: 4 mo f/up SUBJECTIVE: Debora Meyers is a 52 year old year old lady here today for 4 month follow up appointment for review of medical conditions. Feeling weird even after given something to eat and drink. Just feels like going to sleep. Sleeping well Has had some RLS in arms when tries to take nap in day. Stable on current meds. No adverse effects noted. Anxiety controlled. Sugars seem controlled well when checked--should check sugars more routinely. PAST MEDICAL HISTORY Diagnosis Date - Allergic rhinitis used to receive allergy shots from Dr. Brown - Alopecia, unspecified 08/29/2012 - Anticoagulated on Coumadin INR goal 3.0 to 4.0 - Asthma - Benign neoplasm of stomach - Bipolar disorder, unspecified 08/29/2012 - Diabetes mellitus type 2, controlled, without complications (HCC) 08/12/2007 In records from treatment after elevated sugars in 2001 during hospital stay; no longer on any meds and sugars have been fine--either normal or just in impaired fasting glucose level - Embolism and thrombosis (HCC) 08/14/2005 - Environmental allergies 01/17/2012 - Exostosis of unspecified site 09/27/2010 - Fibromyalgia - Goiter, unspecified - Hypothyroidism 10/28/2009 - Nausea alone - Obesity - STACY treated with BiPAP [facility] supplier - Other diseases of lung, not elsewhere classified - Other hammer toe (acquired) 09/27/2010 - RA (rheumatoid arthritis) (HCC) - 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 also elevated BMI . RECOMMENDATIONS are 1.weight loss.2. not seen significant sleep apnea however absense or REM sleep sleep apnea may be understimated.Extrinsic factors leading to excessive daytime somnolence such as mood disturbances and or medication effect may be a factor Current Outpatient Prescriptions: insulin lispro (HUMALOG KWIKPEN INSULIN) 100 unit/mL inpn Inject 30 Units subcutaneously w MEALS. Three times daily levothyroxine (LEVOXYL) 100 mcg tablet Take 1 tablet by mouth daily before breakfast. blood sugar diagnostic (TRUE METRIX GLUCOSE TEST STRIP) test strip Test blood sugar 4 x daily. Dx: E11.22. Insulin use: Yes adalimumab (HUMIRA) 40 mg/0.8 mL injection Inject 40 mg subcutaneously one time only. insulin glargine (LANTUS SOLOSTAR U-100 INSULIN) 100 unit/mL (3 mL) inpn Inject 60-80 Units subcutaneously daily at bedtime. Titrate up to 80 units per day as directed for high sugars nystatin (MYCOSTATIN) 100,000 unit/mL suspension 1 tsp swish and swallow until gone, 4 times daily fluticasone (FLONASE) 50 mcg/actuation nasal spray Use 1-2 Sprays in each nostril once daily. rOPINIRole (REQUIP) 0.5 mg tablet Take 1 tablet by mouth three times daily. potassium chloride ER (K-DUR, KLOR-CON) 10 mEq tablet Take 1 tablet by mouth twice daily. clonazePAM (KLONOPIN) 1 mg tablet Take 0.5-1 tablets by mouth daily at bedtime for 90 days. enoxaparin (LOVENOX) 40 mg/0.4 mL syrg 40 mg subcutaneous every 12 hours starting February 08 in the morning; take only the morning dose February 10; do not take February 11 (day of procedure); resume 40 mg every 12 hours starting evening of February 12 through morning dose February 18; do not take February 19 (day of dental procedure); resume 40 mg every 12 hours starting evening of February 20 and continue until INR therapeutic Cetirizine (ZYRTEC) 10 mg cap Take by mouth daily at bedtime. fluticasone-vilanterol (BREO ELLIPTA) 200-25 mcg/dose inhaler Inhale 1 Inhalation as instructed once daily. albuterol HFA (PROVENTIL HFA, VENTOLIN HFA) 90 mcg/actuation inhaler Inhale 2 Puffs as instructed every 4 hours as needed (for cough, wheezing, chest tightness or shortness of breath. Use with spacer. ). gabapentin (NEURONTIN) 300 mg capsule Take 1 in the morning, 1 at lunch, 3 at bedtime daily furosemide (LASIX) 40 mg tablet Take 1 tablet by mouth once daily. May take one additional pill, PRN for increased swelling diphenoxylate-atropine (LOMOTIL) 2.5-0.025 mg per tablet Take 1 tablet by mouth before meals and at bedtime for 30 days. as needed Benzonatate 200 mg capsule Take 1 capsule by mouth three times daily as needed. triamcinolone acetonide (KENALOG) 0.1 % cream Apply 1 application to affected area three times daily as needed (itchy rash/psoriasis on hands). Apply sparingly insulin needles, DISPOSABLE, (BD INSULIN PEN NEEDLE UF) 31 gauge x 5/16 ndle Use with insulin pens 4 times daily as directed insulin needles, DISPOSABLE, (UNIFINE PENTIPS) 31 gauge x 04/03 ndle Inject 1 Each subcutaneously four times daily. lisinopril 2.5 mg tablet TAKE 1 TABLET BY MOUTH EVERY DAY cholecalciferol (VITAMIN D3) 5,000 unit tab Take 1 tablet by mouth once daily. warfarin (COUMADIN) 7.5 mg tablet Take 1 tablet by mouth daily as directed. warfarin (COUMADIN) 5 mg tablet Take 1 tablet by mouth once daily. SHENG - 7.5mg , sun and 5mg all other days or as directed multivitamin with minerals (HAIR,SKIN AND NAILS) tablet Take 1 tablet by mouth three times daily. alpha tocopheryl acetate (VITAMIN E) 400 unit capsule Take 2 capsules by mouth once daily. ondansetron (ZOFRAN) 4 mg tablet Take 1 tablet by mouth every 8 hours as needed for Nausea/Vomiting. Omeprazole 40 mg capsule Take 1 capsule by mouth once daily. sucralfate (CARAFATE) 100 mg/mL suspension Take 10 mL by mouth four times daily as needed. As directed (usually before meals and bedtime as needed) simvastatin (ZOCOR) 10 mg tablet Take 1 tablet by mouth daily at bedtime. COMPOUNDED PRESCRIPTION SHOWER CHAIR WITH BACK DX M06.9 I74.9 COMPOUNDED PRESCRIPTION SUCTION STYLE GRAB BAR FOR SHOWER WALL INSTALLATION DX M 06.9 I 74.9 verapamil (CALAN, ISOPTIN) 40 mg tablet Take 1 tablet by mouth three times daily. albuterol HFA (PROAIR HFA) 90 mcg/actuation inhaler Inhale 2 Puffs as instructed every 4 hours as needed for Wheezing/Shortness of Breath. loratadine (CLARITIN) 10 mg tablet Take 1 tablet by mouth once daily. dicyclomine (BENTYL) 10 mg capsule Take 1 capsule by mouth four times daily as needed (cramping pains and urgency with bowels). oxyCODONE-acetaminophen (PERCOCET) 5-325 mg tablet Take 1 tablet by mouth every 4 hours as needed. colesevelam (WELCHOL) 625 mg tablet Take 1-2 tablets by mouth twice daily with meals. as directed for possible bile gastritis Patient taking 1 in am and 1 in evening COUMADIN 1 mg tablet take 5mg daily except for Sunday, take 7.5 mg on Sunday or as directedDO NOT SUBSITUTE WITH GENERIC. QUEtiapine (SEROQUEL) 25 mg tablet Take 1 tablet by mouth twice daily. spironolactone (ALDACTONE) 25 mg tablet Take 1 tablets by mouth once daily in the AM fluticasone (ALLERGY RELIEF, FLUTICASONE,) 50 mcg/actuation nasal spray Use 2 Sprays in each nostril once daily as needed. topiramate (TOPAMAX) 50 mg tablet Take 1 tablet by mouth twice daily. albuterol (PROVENTIL) 2.5 mg /3 mL (0.083 %) nebulizer solution Use 3 mL via nebulizer every 6 hours as needed. Blood Pressure Test Kit-Wrist kit Use to check blood pressure once daily as directed DX:I10 hydroxychloroquine (PLAQUENIL) 200 mg tablet Take 1 tablet by mouth once daily. budesonide-formoterol (SYMBICORT) 160-4.5 mcg/actuation inhaler Inhale 2 Puffs as instructed twice daily. tiZANidine (ZANAFLEX) 4 mg tablet Take 1 tablet by mouth every 8 hours as needed (muscle spasms). Dr Wetzel CALCIUM CARB/MAGNESIUM OX,CARB (YASMINE-MAG ORAL) Take by mouth. nystatin (MYCOSTATIN) cream Apply 1 application to affected area twice daily. As needed escitalopram oxalate (LEXAPRO) 20 mg tablet Take 1 tablet by mouth once daily. COMPOUNDED PRESCRIPTION Morphine 15 mg per pump filled every [address] Wetzel leflunomide (ARAVA) 20 mg tablet Take 1 tablet by mouth once daily. Lactobacillus acidophilus (PROBIOTIC) 10 billion cell cap Take 2 tablets by mouth daily at bedtime. vitamin b complex (B COMPLETE) tab Take 1 tablet by mouth once daily. COMPOUNDED PRESCRIPTION Decrease BiPAP settings to 11/5 cmH2O. Diagnosis G47.33 Miscellaneous Medical Supply [facility] CUSTOM JOBST KNEE HI COMPRESSION STOCKING 30-40MM/HG. Dispense 2 pair Diagnosis:(I87.2) Venous insufficiency of both lower extremities; (R60.9) Edema ketoconazole (NIZORAL) 2 % cream Apply 1 application to affected area once daily. as needed to corners of lips and other rash as directed [place]-3 Fatty Acids-Vitamin E (FISH OIL) 1,000 mg cap Take 1 capsule by mouth three times daily. traZODONE 100 mg ORAL tablet Take 2 tablets by mouth daily at bedtime. (Dr. Ruano--noted that 1 pill not adequate) No current facility-administered medications for this visit. OBJECTIVE: BP 114/80 (BP Site: Left Arm, BP Position: Sitting, BP Cuff Size: Regular Adult) Pulse 84 Resp 16 Wt 122.5 kg (270 lb) BMI 52.73 kg/m? Patient is alert, oriented times 3, no apparent distress, affect is bright, reactive. Last 5 Encounter BP Readings: Date: BP: 04/24/2018 114/80 04/09/2018 136/82 01/22/2018 141/85 12/12/2017 128/72 11/27/2017 124/82 Last 5 Encounter Wt Readings: Date: Wt: 04/24/2018 122.5 kg (270 lb) 04/09/2018 123.4 kg (272 lb) 01/22/2018 120.2 kg (265 lb) 12/12/2017 114.3 kg (252 lb) 11/27/2017 115.2 kg (254 lb) Heart: Regular rate, rhythm, no murmurs, gallops, rubs. Lungs: Clear to auscultation, bilaterally, breathing non labored. Ext: No cyanosis, clubbing, or edema. Component Latest Ref Rng AND Units 10/17/2016 10/30/2016 01/02/2017 03/12/2017 07/28/2017 11/13/2017 04/12/2018 Protein, Total 6.3 - 8.0 g/dL 6.9 7.1 7.0 Albumin 3.9 - 4.9 g/dL 4.0 4.0 4.2 Calcium 8.5 - 10.2 mg/dL 10.1 (H) 9.6 10.1 (H) 11.2 (H) 9.9 10.5 (H) 9.5 Bilirubin, Total 0.2 - 1.3 mg/dL 0.3 0.2 0.3 Alkaline Phosphatase 32 - 117 U/L 110 107 92 AST 13 - 35 U/L 30 32 43 (H) Glucose 74 - 99 mg/dL 188 (H) 146 (H) 346 (H) 341 (H) 250 (H) 244 (H) 220 (H) BUN 7 - 21 mg/dL 25 (H) 40 (H) 32 (H) 32 (H) 41 (H) 30 (H) 30 (H) Creatinine 0.58 - 0.96 mg/dL 1.74 (H) 1.48 (H) 1.87 (H) 2.51 (H) 1.66 (H) 1.87 (H) 1.62 (H) Sodium 136 - 144 mmol/L 142 140 141 137 139 140 137 Potassium 3.7 - 5.1 mmol/L 4.0 3.8 3.9 3.8 4.1 3.9 4.2 Chloride 97 - 105 mmol/L 99 102 99 95 (L) 99 99 97 CO2 22 - 30 mmol/L 26 22 27 24 24 24 26 Anion Gap 9 - 18 mmol/L 17 16 15 18 16 17 14 ALT 7 - 38 U/L 32 36 49 (H) eGFR- 38 45 35 25 40 34 41 eGFR-All Other Races . 31 37 29 20 33 29 34 Triglyceride <150 mg/dL 304 (H) 274 (H) 343 (H) Cholesterol, Total <200 mg/dL 245 (H) 214 (H) 284 (H) HDL Cholesterol >39 mg/dL 66 52 (L) 52 VLDL Cholesterol <30 mg/dL 61 (H) 55 (H) 69 (H) LDL Cholesterol <100 mg/dL 118 107 163 (H) Fasting Time hrs 19 12 2 TC:HDL Ratio <5.10 3.71 4.12 5.46 (H) LDL:HDL Ratio <2.54 1.79 2.06 3.13 (H) Non HDL Cholesterol <130 mg/dL 179 (H) 162 (H) 232 (H) Creatinine, Ur Random (UCRR) 20 - 300 mg/dL 81.3 Albumin, Urine Random 0.0 - 23.0 mg/L 124.6 (H) Albumin/Creat Ratio 0 - 30 mg/g 153 (H) Hemoglobin A1C 4.3 - 5.6 % 9.3 (H) 8.6 (H) 9.6 (H) 7.1 (H) 8.4 (H) 8.4 (H) Estimated Average Glucose mg/dL 220 200 229 157 194 194 Fingerstick glucose 173 in office ASSESSMENT AND PLAN: Encounter Diagnosis ICD-10-CM 1. Mixed hyperlipidemia E78.2 atorvastatin (LIPITOR) 10 mg tablet last lipids were excdellent on 80 mg simvastatin--will try to get down to 40 mg daily and go from there since already working on healthy diet,etc. 2. 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 Fatigue, unspecified type R53.83 GLUCOSE, BLOOD (POC) 4. Abdominal cramping R10.9 dicyclomine (BENTYL) 10 mg capsule 5. Irritable bowel syndrome with diarrhea K58.0 diphenoxylate-atropine (LOMOTIL) 2.5-0.025 mg per tablet 6. Nausea R11.0 ondansetron (ZOFRAN) 4 mg tablet 7. RLS (restless legs syndrome) G25.81 rOPINIRole (REQUIP) 1 mg tablet 8. Need for vaccination Z23 PNEUMOCOCCAL IMMUNIZATION PPSV 23 9. Morbid obesity due to excess calories (HCC) E66.01 10. Polypharmacy Z79.899 11. History of deep vein thrombosis Z86.718 12. Personal history of pulmonary embolism Z86.711 13. Anticoagulated on Coumadin Z51.81 Z79.01 Above issues addressed with patient. Patient involved in shared decision making for management of her medical issues. History and medications reviewed. Epic updated as needed Refills taken care of and meds adjusted as indicated after reviewed history, exam and labs. Health Maintenance reviewed. Updated record and/or ordered tests as recorded. Encouraged on efforts at healthy diet and regular exercise and adequate sleep. Needs to keep working on diet and exercise with lifestyle changes for effective weight loss as well as control of sugars, HTN and lipids. Fatigue multifactorial. Sugar was fine when checked in office. Continuing efforts at trying to get adequate sleep and adequate exercise, plus try to decrease number of meds needs to take. Continue present management. .Further evaluation and treatment as indicated. Most recent labs showed sugar control not yet to goal but at least .HgA1C <9. Electrolytes were okay and Cr improved. Still need to avoid taking too much diuretics and get enough fluids without causing problems with fluid overload. Stable on coumadin for history of recurrent DVT and PE; saw Dr. Cash (hem/onc)--goal range INR still 3 to 4. The majority of the visit was spent counseling and/or coordinating care for the patient. Jwbj-oy-trza time was at least 25 minutes. Livia Scott MD CNOV Observed: 04/24/2018 Status: COMPLETED Source: [place] 3:40 PM [facility] [place] REPOSITORY Office Visit (INTMWS) DEBORA MEYERS ([id number]) 1965 F Date Time Provider Department 04/24/18 3:40 PM LIVIA SCOTT INTMWS During your visit today, we recorded the following information about you: Pulse Respiration Blood pressure Weight 84/minute 16/minute 114/80 122.5 kg Livia Scott MD 05/05/2018 11:01 PM Signed Patient presents with: 4 mo f/up SUBJECTIVE: Debora Meyers is a 52 year old year old lady here today for 4 month follow up appointment for review of medical conditions. Feeling weird even after given something to eat and drink. Just feels like going to sleep. Sleeping well Has had some RLS in arms when tries to take nap in day. Stable on current meds. No adverse effects noted. Anxiety controlled. Sugars seem controlled well when checked--should check sugars more routinely. PAST MEDICAL HISTORY Diagnosis Date - Allergic rhinitis used to receive allergy shots from Dr. Brown - Alopecia, unspecified 08/29/2012 - Anticoagulated on Coumadin INR goal 3.0 to 4.0 - Asthma - Benign neoplasm of stomach - Bipolar disorder, unspecified 08/29/2012 - Diabetes mellitus type 2, controlled, without complications (HCC) 08/12/2007 In records from treatment after elevated sugars in 2001 during hospital stay; no longer on any meds and sugars have been fine--either normal or just in impaired fasting glucose level - Embolism and thrombosis (HCC) 08/14/2005 - Environmental allergies 01/17/2012 - Exostosis of unspecified site 09/27/2010 - Fibromyalgia - Goiter, unspecified - Hypothyroidism 10/28/2009 - Nausea alone - Obesity - STACY treated with BiPAP [facility] supplier - Other diseases of lung, not elsewhere classified - Other hammer toe (acquired) 09/27/2010 - RA (rheumatoid arthritis) (HCC) - 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 also elevated BMI . RECOMMENDATIONS are 1.weight loss.2. not seen significant sleep apnea however absense or REM sleep sleep apnea may be understimated.Extrinsic factors leading to excessive daytime somnolence such as mood disturbances and or medication effect may be a factor Current Outpatient Prescriptions: insulin lispro (HUMALOG KWIKPEN INSULIN) 100 unit/mL inpn Inject 30 Units subcutaneously w MEALS. Three times daily levothyroxine (LEVOXYL) 100 mcg tablet Take 1 tablet by mouth daily before breakfast. blood sugar diagnostic (TRUE METRIX GLUCOSE TEST STRIP) test strip Test blood sugar 4 x daily. Dx: E11.22. Insulin use: Yes adalimumab (HUMIRA) 40 mg/0.8 mL injection Inject 40 mg subcutaneously one time only. insulin glargine (LANTUS SOLOSTAR U-100 INSULIN) 100 unit/mL (3 mL) inpn Inject 60-80 Units subcutaneously daily at bedtime. Titrate up to 80 units per day as directed for high sugars nystatin (MYCOSTATIN) 100,000 unit/mL suspension 1 tsp swish and swallow until gone, 4 times daily fluticasone (FLONASE) 50 mcg/actuation nasal spray Use 1-2 Sprays in each nostril once daily. rOPINIRole (REQUIP) 0.5 mg tablet Take 1 tablet by mouth three times daily. potassium chloride ER (K-DUR, KLOR-CON) 10 mEq tablet Take 1 tablet by mouth twice daily. clonazePAM (KLONOPIN) 1 mg tablet Take 0.5-1 tablets by mouth daily at bedtime for 90 days. enoxaparin (LOVENOX) 40 mg/0.4 mL syrg 40 mg subcutaneous every 12 hours starting February 08 in the morning; take only the morning dose February 10; do not take February 11 (day of procedure); resume 40 mg every 12 hours starting evening of February 12 through morning dose February 18; do not take February 19 (day of dental procedure); resume 40 mg every 12 hours starting evening of February 20 and continue until INR therapeutic Cetirizine (ZYRTEC) 10 mg cap Take by mouth daily at bedtime. fluticasone-vilanterol (BREO ELLIPTA) 200-25 mcg/dose inhaler Inhale 1 Inhalation as instructed once daily. albuterol HFA (PROVENTIL HFA, VENTOLIN HFA) 90 mcg/actuation inhaler Inhale 2 Puffs as instructed every 4 hours as needed (for cough, wheezing, chest tightness or shortness of breath. Use with spacer. ). gabapentin (NEURONTIN) 300 mg capsule Take 1 in the morning, 1 at lunch, 3 at bedtime daily furosemide (LASIX) 40 mg tablet Take 1 tablet by mouth once daily. May take one additional pill, PRN for increased swelling diphenoxylate-atropine (LOMOTIL) 2.5-0.025 mg per tablet Take 1 tablet by mouth before meals and at bedtime for 30 days. as needed Benzonatate 200 mg capsule Take 1 capsule by mouth three times daily as needed. triamcinolone acetonide (KENALOG) 0.1 % cream Apply 1 application to affected area three times daily as needed (itchy rash/psoriasis on hands). Apply sparingly insulin needles, DISPOSABLE, (BD INSULIN PEN NEEDLE UF) 31 gauge x 5/16 ndle Use with insulin pens 4 times daily as directed insulin needles, DISPOSABLE, (UNIFINE PENTIPS) 31 gauge x 5/16 ndle Inject 1 Each subcutaneously four times daily. lisinopril 2.5 mg tablet TAKE 1 TABLET BY MOUTH EVERY DAY cholecalciferol (VITAMIN D3) 5,000 unit tab Take 1 tablet by mouth once daily. warfarin (COUMADIN) 7.5 mg tablet Take 1 tablet by mouth daily as directed. warfarin (COUMADIN) 5 mg tablet Take 1 tablet by mouth once daily. SHENG - 7.5mg tu, wed and 5mg all other days or as directed multivitamin with minerals (HAIR,SKIN AND NAILS) tablet Take 1 tablet by mouth three times daily. alpha tocopheryl acetate (VITAMIN E) 400 unit capsule Take 2 capsules by mouth once daily. ondansetron (ZOFRAN) 4 mg tablet Take 1 tablet by mouth every 8 hours as needed for Nausea/Vomiting. Omeprazole 40 mg capsule Take 1 capsule by mouth once daily. sucralfate (CARAFATE) 100 mg/mL suspension Take 10 mL by mouth four times daily as needed. As directed (usually before meals and bedtime as needed) simvastatin (ZOCOR) 10 mg tablet Take 1 tablet by mouth daily at bedtime. COMPOUNDED PRESCRIPTION SHOWER CHAIR WITH BACK DX M06.9 I74.9 COMPOUNDED PRESCRIPTION SUCTION STYLE GRAB BAR FOR SHOWER WALL INSTALLATION DX M 06.9 I 74.9 verapamil (CALAN, ISOPTIN) 40 mg tablet Take 1 tablet by mouth three times daily. albuterol HFA (PROAIR HFA) 90 mcg/actuation inhaler Inhale 2 Puffs as instructed every 4 hours as needed for Wheezing/Shortness of Breath. loratadine (CLARITIN) 10 mg tablet Take 1 tablet by mouth once daily. dicyclomine (BENTYL) 10 mg capsule Take 1 capsule by mouth four times daily as needed (cramping pains and urgency with bowels). oxyCODONE-acetaminophen (PERCOCET) 5-325 mg tablet Take 1 tablet by mouth every 4 hours as needed. colesevelam (WELCHOL) 625 mg tablet Take 1-2 tablets by mouth twice daily with meals. as directed for possible bile gastritis Patient taking 1 in am and 1 in evening COUMADIN 1 mg tablet take 5mg daily except for Sunday, take 7.5 mg on Sunday or as directedDO NOT SUBSITUTE WITH GENERIC. QUEtiapine (SEROQUEL) 25 mg tablet Take 1 tablet by mouth twice daily. spironolactone (ALDACTONE) 25 mg tablet Take 1 tablets by mouth once daily in the AM fluticasone (ALLERGY RELIEF, FLUTICASONE,) 50 mcg/actuation nasal spray Use 2 Sprays in each nostril once daily as needed. topiramate (TOPAMAX) 50 mg tablet Take 1 tablet by mouth twice daily. albuterol (PROVENTIL) 2.5 mg /3 mL (0.083 %) nebulizer solution Use 3 mL via nebulizer every 6 hours as needed. Blood Pressure Test Kit-Wrist kit Use to check blood pressure once daily as directed DX:I10 hydroxychloroquine (PLAQUENIL) 200 mg tablet Take 1 tablet by mouth once daily. budesonide-formoterol (SYMBICORT) 160-4.5 mcg/actuation inhaler Inhale 2 Puffs as instructed twice daily. tiZANidine (ZANAFLEX) 4 mg tablet Take 1 tablet by mouth every 8 hours as needed (muscle spasms). Dr Wetzel CALCIUM CARB/MAGNESIUM OX,CARB (YASMINE-MAG ORAL) Take by mouth. nystatin (MYCOSTATIN) cream Apply 1 application to affected area twice daily. As needed escitalopram oxalate (LEXAPRO) 20 mg tablet Take 1 tablet by mouth once daily. COMPOUNDED PRESCRIPTION Morphine 15 mg per pump filled every [address] Wetzel leflunomide (ARAVA) 20 mg tablet Take 1 tablet by mouth once daily. Lactobacillus acidophilus (PROBIOTIC) 10 billion cell cap Take 2 tablets by mouth daily at bedtime. vitamin b complex (B COMPLETE) tab Take 1 tablet by mouth once daily. COMPOUNDED PRESCRIPTION Decrease BiPAP settings to 11/5 cmH2O. Diagnosis G47.33 Miscellaneous Medical Supply [facility] [place] CUSTOM JOBST KNEE HI COMPRESSION STOCKING 30-40MM/HG. Dispense 2 pair Diagnosis:(I87.2) Venous insufficiency of both lower extremities; (R60.9) Edema ketoconazole (NIZORAL) 2 % cream Apply 1 application to affected area once daily. as needed to corners of lips and other rash as directed [place]-3 Fatty Acids-Vitamin E (FISH OIL) 1,000 mg cap Take 1 capsule by mouth three times daily. traZODONE 100 mg ORAL tablet Take 2 tablets by mouth daily at bedtime. (Dr. Ruano--noted that 1 pill not adequate) No current facility-administered medications for this visit. OBJECTIVE: BP 114/80 (BP Site: Left Arm, BP Position: Sitting, BP Cuff Size: Regular Adult) Pulse 84 Resp 16 Wt 122.5 kg (270 lb) BMI 52.73 kg/m? Patient is alert, oriented times 3, no apparent distress, affect is bright, reactive. Last 5 Encounter BP Readings: Date: BP: 04/24/2018 114/80 04/09/2018 136/82 01/22/2018 141/85 12/12/2017 128/72 11/27/2017 124/82 Last 5 Encounter Wt Readings: Date: Wt: 04/24/2018 122.5 kg (270 lb) 04/09/2018 123.4 kg (272 lb) 01/22/2018 120.2 kg (265 lb) 12/12/2017 114.3 kg (252 lb) 11/27/2017 115.2 kg (254 lb) Heart: Regular rate, rhythm, no murmurs, gallops, rubs. Lungs: Clear to auscultation, bilaterally, breathing non labored. Ext: No cyanosis, clubbing, or edema. Component Latest Ref Rng AND Units 10/17/2016 10/30/2016 01/02/2017 03/12/2017 07/28/2017 11/13/2017 04/12/2018 Protein, Total 6.3 - 8.0 g/dL 6.9 7.1 7.0 Albumin 3.9 - 4.9 g/dL 4.0 4.0 4.2 Calcium 8.5 - 10.2 mg/dL 10.1 (H) 9.6 10.1 (H) 11.2 (H) 9.9 10.5 (H) 9.5 Bilirubin, Total 0.2 - 1.3 mg/dL 0.3 0.2 0.3 Alkaline Phosphatase 32 - 117 U/L 110 107 92 AST 13 - 35 U/L 30 32 43 (H) Glucose 74 - 99 mg/dL 188 (H) 146 (H) 346 (H) 341 (H) 250 (H) 244 (H) 220 (H) BUN 7 - 21 mg/dL 25 (H) 40 (H) 32 (H) 32 (H) 41 (H) 30 (H) 30 (H) Creatinine 0.58 - 0.96 mg/dL 1.74 (H) 1.48 (H) 1.87 (H) 2.51 (H) 1.66 (H) 1.87 (H) 1.62 (H) Sodium 136 - 144 mmol/L 142 140 141 137 139 140 137 Potassium 3.7 - 5.1 mmol/L 4.0 3.8 3.9 3.8 4.1 3.9 4.2 Chloride 97 - 105 mmol/L 99 102 99 95 (L) 99 99 97 CO2 22 - 30 mmol/L 26 22 27 24 24 24 26 Anion Gap 9 - 18 mmol/L 17 16 15 18 16 17 14 ALT 7 - 38 U/L 32 36 49 (H) eGFR- 38 45 35 25 40 34 41 eGFR-All Other Races . 31 37 29 20 33 29 34 Triglyceride <150 mg/dL 304 (H) 274 (H) 343 (H) Cholesterol, Total <200 mg/dL 245 (H) 214 (H) 284 (H) HDL Cholesterol >39 mg/dL 66 52 (L) 52 VLDL Cholesterol <30 mg/dL 61 (H) 55 (H) 69 (H) LDL Cholesterol <100 mg/dL 118 107 163 (H) Fasting Time hrs 19 12 2 TC:HDL Ratio <5.10 3.71 4.12 5.46 (H) LDL:HDL Ratio <2.54 1.79 2.06 3.13 (H) Non HDL Cholesterol <130 mg/dL 179 (H) 162 (H) 232 (H) Creatinine, Ur Random (UCRR) 20 - 300 mg/dL 81.3 Albumin, Urine Random 0.0 - 23.0 mg/L 124.6 (H) Albumin/Creat Ratio 0 - 30 mg/g 153 (H) Hemoglobin A1C 4.3 - 5.6 % 9.3 (H) 8.6 (H) 9.6 (H) 7.1 (H) 8.4 (H) 8.4 (H) Estimated Average Glucose mg/dL 220 200 229 157 194 194 Fingerstick glucose 173 in office ASSESSMENT AND PLAN: Encounter Diagnosis ICD-10-CM 1. Mixed hyperlipidemia E78.2 atorvastatin (LIPITOR) 10 mg tablet last lipids were excdellent on 80 mg simvastatin--will try to get down to 40 mg daily and go from there since already working on healthy diet,etc. 2. 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 Fatigue, unspecified type R53.83 GLUCOSE, BLOOD (POC) 4. Abdominal cramping R10.9 dicyclomine (BENTYL) 10 mg capsule 5. Irritable bowel syndrome with diarrhea K58.0 diphenoxylate-atropine (LOMOTIL) 2.5-0.025 mg per tablet 6. Nausea R11.0 ondansetron (ZOFRAN) 4 mg tablet 7. RLS (restless legs syndrome) G25.81 rOPINIRole (REQUIP) 1 mg tablet 8. Need for vaccination Z23 PNEUMOCOCCAL IMMUNIZATION PPSV 23 9. Morbid obesity due to excess calories (HCC) E66.01 10. Polypharmacy Z79.899 11. History of deep vein thrombosis Z86.718 12. Personal history of pulmonary embolism Z86.711 13. Anticoagulated on Coumadin Z51.81 Z79.01 Above issues addressed with patient. Patient involved in shared decision making for management of her medical issues. History and medications reviewed. Epic updated as needed Refills taken care of and meds adjusted as indicated after reviewed history, exam and labs. Health Maintenance reviewed. Updated record and/or ordered tests as recorded. Encouraged on efforts at healthy diet and regular exercise and adequate sleep. Needs to keep working on diet and exercise with lifestyle changes for effective weight loss as well as control of sugars, HTN and lipids. Fatigue multifactorial. Sugar was fine when checked in office. Continuing efforts at trying to get adequate sleep and adequate exercise, plus try to decrease number of meds needs to take. Continue present management. .Further evaluation and treatment as indicated. Most recent labs showed sugar control not yet to goal but at least .HgA1C <9. Electrolytes were okay and Cr improved. Still need to avoid taking too much diuretics and get enough fluids without causing problems with fluid overload. Stable on coumadin for history of recurrent DVT and PE; saw Dr. Cash (hem/onc)--goal range INR still 3 to 4. The majority of the visit was spent counseling and/or coordinating care for the patient. Lhsu-hu-dlii time was at least 25 minutes. MD Livia Mas MD 04/24/2018 5:28 PM Signed Okay to take up to 5 mg Lomotil at a time. That would be 2 pills. May increase midday Requip to 1 mg. Referring Provider: LIVIA SCOTT [[id number]] Allergies As of Date: 04/24/2018 Noted Allergy Reaction environmental [Other] 07/14/2005 2 - Rash 3 - Cough VITAMIN K 07/14/2005 7 - Swelling CHOLESTYRAMINE 03/31/2013 14 - Other: See Comments Comments: constipation IBUPROFEN 06/29/2009 6 - Diarrhea MACROBID (NITROFURANTOIN MONOHYD/*12/06/2010 2 - Rash Comments: states that broke out all over with rash last time was given this in September 2010 peroxide [Other] 07/14/2005 5 - Intolerance SULFA (SULFONAMIDE ANTIBIOTICS) 02/05/2013 2 - Rash TYLENOL (ACETAMINOPHEN) 03/17/2014 11 - Vomiting Comments: Nausea Date Reviewed: 04/24/2018 Reviewed by: Gene Mosquera - Fully Assessed Reason for Visit: 4 mo f/up [Other] Primary Visit Diagnosis:Mixed hyperlipidemia [E78.2] Comment:last lipids were excdellent on 80 mg simvastatin--will try to get down to 40 mg daily and go from there since already working on healthy diet,etc. Other Visit Diagnoses:Type 2 DM with CKD stage 3 and hypertension (HCC) [E11.22, I12.9, N18.3] Fatigue, unspecified type [R53.83] Abdominal cramping [R10.9] Irritable bowel syndrome with diarrhea [K58.0] Nausea [R11.0] RLS (restless legs syndrome) [G25.81] Need for vaccination [Z23] Morbid obesity due to excess calories (HCC) [E66.01] Polypharmacy [Z79.899] History of deep vein thrombosis [Z86.718] Personal history of pulmonary embolism [Z86.711] Anticoagulated on Coumadin [Z51.81, Z79.01] Order(s):PNEUMOCOCCAL IMMUNIZATION PPSV 23 [[id number]] Order #: [id number] loratadine (CLARITIN) 10 mg tabletTake 1 tablet by mouth once daily.Disp: 30 tabletRfl: 11 topiramate (TOPAMAX) 50 mg tabletTake 1 tablet by mouth twice daily.Disp: 60 tabletRfl: 11 verapamil (CALAN, ISOPTIN) 40 mg tabletTake 1 tablet by mouth three times daily.Disp: 90 tabletRfl: 11 atorvastatin (LIPITOR) 10 mg tabletTake 1 tablet by mouth daily at bedtime. For cholesterol.Disp: 30 tabletRfl: 11 GLUCOSE, BLOOD (POC) [[id number]] Order #: [id number] dicyclomine (BENTYL) 10 mg capsuleTake 1 capsule by mouth four times daily as needed (cramping pains and urgency with bowels).Disp: 120 capsuleRfl: 11 diphenoxylate-atropine (LOMOTIL) 2.5-0.025 mg per tabletTake 1 tablet by mouth before meals and at bedtime for 90 days. as neededDisp: 30 tabletRfl: 2 GLUCOSE, BLOOD (POC) [[id number]] Order #: [id number]. #:[id number] insulin glargine (LANTUS SOLOSTAR U-100 INSULIN) 100 unit/mL (3 mL) inpnInject 40 Units subcutaneously twice daily.Disp: Rfl: ondansetron (ZOFRAN) 4 mg tabletTake 1 tablet by mouth every 8 hours as needed for Nausea/Vomiting.Disp: 30 tabletRfl: 1 rOPINIRole (REQUIP) 1 mg tabletTake 0.5-1 tablets by mouth three times daily. As directedDisp: 90 tabletRfl: 5 Prescriptions as of 04/24/2018 Sig: LORATADINE 10 MG TABLET Take 1 tablet by mouth once d* TOPIRAMATE 50 MG TABLET Take 1 tablet by mouth twice * VERAPAMIL 40 MG TABLET Take 1 tablet by mouth three * DICYCLOMINE 10 MG CAPSULE Take 1 capsule by mouth four * DIPHENOXYLATE-ATROPINE 2.5 MG* Take 1 tablet by mouth before* INSULIN GLARGINE (U-100) 100 * Inject 40 Units subcutaneousl* ONDANSETRON HCL 4 MG TABLET Take 1 tablet by mouth every * INSULIN LISPRO (U-100) 100 UN* Inject 30 Units subcutaneousl* LEVOTHYROXINE 100 MCG TABLET Take 1 tablet by mouth daily * BLOOD SUGAR DIAGNOSTIC STRIPS Test blood sugar 4 x daily. D* ADALIMUMAB 40 MG/0.8 ML SUBCU* Inject 40 mg subcutaneously o* NYSTATIN 100,000 UNIT/ML ORAL* 1 tsp swish and swallow until* FLUTICASONE 50 MCG/ACTUATION * Use 1-2 Sprays in each nostri* POTASSIUM CHLORIDE ER 10 MEQ * Take 1 tablet by mouth twice * CLONAZEPAM 1 MG TABLET Take 0.5-1 tablets by mouth d* ENOXAPARIN 40 MG/0.4 ML SUBCU* 40 mg subcutaneous every 12 h* CETIRIZINE 10 MG CAPSULE Take by mouth daily at bedtim* FLUTICASONE 200 MCG-VILANTERO* Inhale 1 Inhalation as instru* ALBUTEROL SULFATE HFA 90 MCG/* Inhale 2 Puffs as instructed * GABAPENTIN 300 MG CAPSULE Take 1 in the morning, 1 at l* FUROSEMIDE 40 MG TABLET Take 1 tablet by mouth once d* BENZONATATE 200 MG CAPSULE Take 1 capsule by mouth three* TRIAMCINOLONE ACETONIDE 0.1 %* Apply 1 application to affect* PEN NEEDLE, DIABETIC 31 GAUGE* Use with insulin pens 4 times* PEN NEEDLE, DIABETIC 31 GAUGE* Inject 1 Each subcutaneously * LISINOPRIL 2.5 MG TABLET TAKE 1 TABLET BY MOUTH EVERY * CHOLECALCIFEROL (VITAMIN D3) * Take 1 tablet by mouth once d* WARFARIN 7.5 MG TABLET Take 1 tablet by mouth daily * WARFARIN 5 MG TABLET Take 1 tablet by mouth once d* MULTIVITAMIN WITH MINERALS TA* Take 1 tablet by mouth three * VITAMIN E 400 UNIT CAPSULE Take 2 capsules by mouth once* OMEPRAZOLE 40 MG CAPSULE,LALITO* Take 1 capsule by mouth once * SUCRALFATE 100 MG/ML ORAL BART* Take 10 mL by mouth four time* COMPOUNDED PRESCRIPTION SHOWER CHAIR WITH BACK D* COMPOUNDED PRESCRIPTION SUCTION STYLE GRAB BAR FOR SH* ALBUTEROL SULFATE HFA 90 MCG/* Inhale 2 Puffs as instructed * OXYCODONE-ACETAMINOPHEN 5 MG-* Take 1 tablet by mouth every * COUMADIN 1 MG TABLET take 5mg daily except for Sun* QUETIAPINE 25 MG TABLET Take 1 tablet by mouth twice * ALBUTEROL SULFATE 2.5 MG/3 ML* Use 3 mL via nebulizer every * BLOOD PRESSURE TEST KIT-WRIST* Use to check blood pressure o* HYDROXYCHLOROQUINE 200 MG TAB* Take 1 tablet by mouth once d* BUDESONIDE-FORMOTEROL HFA 160* Inhale 2 Puffs as instructed * TIZANIDINE 4 MG TABLET Take 1 tablet by mouth every * YASMINE-MAG ORAL Take by mouth. NYSTATIN 100,000 UNIT/GRAM TO* Apply 1 application to affect* ESCITALOPRAM 20 MG TABLET Take 1 tablet by mouth once d* COMPOUNDED PRESCRIPTION Morphine 15 mg per pump fille* LACTOBACILLUS ACIDOPHILUS 10 * Take 2 tablets by mouth daily* VITAMIN B COMPLEX TABLET Take 1 tablet by mouth once d* COMPOUNDED PRESCRIPTION Decrease BiPAP settings to 11* MISCELLANEOUS MEDICAL SUPPLY * CUSTOM JOBST KNEE HI KIRSTY* KETOCONAZOLE 2 % TOPICAL CREAM Apply 1 application to affect* OMEGA-3 FATTY ACIDS-VITAMIN E* Take 1 capsule by mouth three* TRAZODONE 100 MG TABLET Take 2 tablets by mouth daily* ATORVASTATIN 10 MG TABLET Take 1 tablet by mouth daily * ROPINIROLE 1 MG TABLET Take 0.5-1 tablets by mouth t* Medication notes this encounter ENOXAPARIN 40 MG/0.4 ML SUBCUTANEOUS SYRINGE >> Gene Mosquera 04/24/2018 3:50 PM >> GENE MOSQUERA SunApr 24, 2018 3:50 PM No longer using WARFARIN 7.5 MG TABLET >> Gene Mosquera 04/24/2018 3:53 PM >> GENE MOSQUERA SunApr 24, 2018 3:53 PM Currently taking 5 mg six days a week and 2.5 mg on WARFARIN 5 MG TABLET >> Gene Mosquera 04/24/2018 3:53 PM >> GENE MOSQUERA SunApr 24, 2018 3:53 PM Current 5 mg six days per week and 2.5 mg on COUMADIN 1 MG TABLET >> Gene Mosquera 04/24/2018 3:54 PM >> GENE MOSQUERA SunApr 24, 2018 3:54 PM Current taking 5 mg six days per week and 2.5 mg on BUDESONIDE-FORMOTEROL HFA 160 MCG-4.5 MCG/ACTUATION AEROSOL INHALER >> Gene Mosquera 04/24/2018 3:55 PM >> GENE MOSQUERA SunApr 24, 2018 3:55 PM No longer using INSULIN GLARGINE (U-100) 100 UNIT/ML (3 ML) SUBCUTANEOUS PEN >> Gene Mosquera 04/24/2018 3:49 PM >> GENE MOSQUERA SunApr 24, 2018 3:49 PM Taking 40 units am and 40 units pm COLESEVELAM 625 MG TABLET >> Gene Mosquera 04/24/2018 3:56 PM >> GENE MOSQUERA SunApr 24, 2018 3:56 PM No longer taking. SPIRONOLACTONE 25 MG TABLET >> Gene Mosquera 04/24/2018 3:54 PM >> GENE MOSQUERA SunApr 24, 2018 3:54 PM Not taking LEFLUNOMIDE 20 MG TABLET >> Gene Mosquera 04/24/2018 3:55 PM >> GENE MOSQUERA SunApr 24, 2018 3:55 PM Currently on hold. >> Livia Scott MD 04/24/2018 5:14 PM on hold due to elevated LFTs Problem List As Of Date 04/24/2018 Noted Resolved OTHER LUNG DISEASE NEC [J98.4] Asthma [J45.909] OTHER UNSPEC SLEEP APNEA [G47.30] Dysmetabolic syndrome X [E88.81] 09/11/2011 Fibromyalgia [[id number]] Embolism and thrombosis (HCC) [I74.9] INVALID FOR* GOITER NOS [E04.9] REFLUX ESOPHAGITIS [K21.0] NAUSEA ALONE [R11.0] ACUTE GASTRITIS W/O HEMORRHAGE [K29.00] INVALID FOR* CONSTIPATION NOS [K59.00] INVALID FOR* More... 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 Obstructive Sleep Apnea [G47.33] INVALID FOR* More... Hypothyroidism [E03.9] INVALID FOR* Exostosis of unspecified site [M89.8X9] INVALID FOR*11/27/2017 Other hammer toe (acquired) [M20.40] INVALID FOR*11/27/2017 Hx of hysterectomy [Z90.710] INVALID FOR* More... Allergic rhinitis [J30.9] More... 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] INVALID FOR* Environmental allergies [Z91.09] INVALID FOR*11/27/2017 Morbid obesity due to excess calories (HCC) [E6* Chronic kidney disease, stage III (moderate) [N*INVALID FOR*11/27/2017 Essential hypertension [I10] INVALID FOR* Nephrolithiasis [N20.0] INVALID FOR* Vitamin D deficiency [E55.9] INVALID FOR* Rheumatoid arthritis (HCC) [M06.9] INVALID FOR* Bipolar disorder, unspecified [F31.9] INVALID FOR* Alopecia, unspecified [L65.9] INVALID FOR*11/27/2017 Personal history of pulmonary embolism [Z86.711]INVALID FOR* Irritable bowel syndrome [K58.9] INVALID FOR* Neuropathy [G62.9] INVALID FOR* Incisional hernia [K43.2] INVALID FOR* Polycythemia, secondary [D75.1] INVALID FOR* Anticoagulated on Coumadin [Z51.81, Z79.01] INVALID FOR* STACY treated with BiPAP [G47.33] More... Type 2 DM with CKD stage 3 and hypertension (HC*INVALID FOR* Polypharmacy [Z79.899] INVALID FOR* Noncompliance with treatment [Z91.19] INVALID FOR* CKD (chronic kidney disease) stage 4, GFR 15-29*INVALID FOR*08/26/2017 Nonallergic rhinitis [J31.0] INVALID FOR* Other instructions from your clinician: Okay to take up to 5 mg Lomotil at a time. That would be 2 pills. May increase midday Requip to 1 mg. Prescriptions ordered this encounter Disp Refills Start End LORATADINE 10 MG TABLET 30 t* 11 04/24/2018 Route: ORAL Sig: Take 1 tablet by mouth once daily. TOPIRAMATE 50 MG TABLET 60 t* 11 04/24/2018 Route: ORAL Sig: Take 1 tablet by mouth twice daily. VERAPAMIL 40 MG TABLET 90 t* 11 04/24/2018 Route: ORAL Sig: Take 1 tablet by mouth three times daily. ATORVASTATIN 10 MG TABLET 30 t* 11 04/24/2018 Cmt: This is to replace simvastatin unless it is not on formulary and cost is too high for patient to pay--in this case would switch to another statin Route: ORAL Sig: Take 1 tablet by mouth daily at bedtime. For cholesterol. DICYCLOMINE 10 MG CAPSULE 120 * 11 04/24/2018 Route: ORAL Sig: Take 1 capsule by mouth four times daily as needed (cramping pains and urgency with bowels). DIPHENOXYLATE-ATROPINE 2.5 MG-0.025 * 30 t* 2 04/24/2018 07/23/2018 Class: Print RX Route: ORAL Sig: Take 1 tablet by mouth before meals and at bedtime for 90 days. as needed INSULIN GLARGINE (U-100) 100 UNIT/ML* 04/24/2018 Class: Med Update Route: SUBCUTANEOUS Sig: Inject 40 Units subcutaneously twice daily. ONDANSETRON HCL 4 MG TABLET 30 t* 1 04/24/2018 Route: ORAL Sig: Take 1 tablet by mouth every 8 hours as needed for Nausea/Vomiting. ROPINIROLE 1 MG TABLET 90 t* 5 04/24/2018 Cmt: Will call when needs this filled; titrating up dose with current 0.5 mg prescription Route: ORAL Sig: Take 0.5-1 tablets by mouth three times daily. As directed Medications Discontinued During This Encounter loratadine (CLARITIN) 10 mg tablet 30 t* 11 05/15/2017 04/24/2018 Route: ORAL Sig: Take 1 tablet by mouth once daily. Disc: Reason for discontinue is not on file. topiramate (TOPAMAX) 50 mg tablet 60 t* 11 04/30/2017 04/24/2018 Route: ORAL Sig: Take 1 tablet by mouth twice daily. Disc: Reason for discontinue is not on file. verapamil (CALAN, ISOPTIN) 40 mg tab* 270 * 3 05/29/2017 04/24/2018 Route: ORAL Sig: Take 1 tablet by mouth three times daily. Disc: Reason for discontinue is not on file. simvastatin (ZOCOR) 10 mg tablet 90 t* 3 07/31/2017 04/24/2018 Route: ORAL Sig: Take 1 tablet by mouth daily at bedtime. Disc: Reason for discontinue is not on file. spironolactone (ALDACTONE) 25 mg tab* 90 t* 1 05/08/2017 04/24/2018 Class: Med Update Sig: Take 1 tablets by mouth once daily in the AM Disc: Reason for discontinue is not on file. colesevelam (WELCHOL) 625 mg tablet 120 * 11 05/08/2017 04/24/2018 Class: Med Update Route: ORAL Sig: Take 1-2 tablets by mouth twice daily with meals. as directed for possible bile gastritis Patient taking 1 in am and 1 in evening Disc: Cost of medication dicyclomine (BENTYL) 10 mg capsule 120 * 11 05/15/2017 04/24/2018 Route: ORAL Sig: Take 1 capsule by mouth four times daily as needed (cramping pains and urgency with bowels). Disc: Reason for discontinue is not on file. diphenoxylate-atropine (LOMOTIL) 2.5* 30 t* 2 12/17/2017 04/24/2018 Class: Print RX Cmt: Prescriptions last 1 to 3 months depending on frequency of flare ups of IBS-D Route: ORAL Sig: Take 1 tablet by mouth before meals and at bedtime for 30 days. as needed Disc: Reason for discontinue is not on file. fluticasone (ALLERGY RELIEF, FLUTICA* 1 Y[place]* 11 05/07/2017 04/24/2018 Route: EACH NOSTRIL Sig: Use 2 Sprays in each nostril once daily as needed. Disc: Reason for discontinue is not on file. insulin glargine (LANTUS SOLOSTAR U-* 6 Pen 2 03/13/2018 04/24/2018 Route: SUBCUTANEOUS Sig: Inject 60-80 Units subcutaneously daily at bedtime. Titrate up to 80 units per day as directed for high sugars Disc: Reason for discontinue is not on file. leflunomide (ARAVA) 20 mg tablet 0 05/30/2016 04/24/2018 Class: Historical Med Route: ORAL Sig: Take 1 tablet by mouth once daily. Disc: Reason for discontinue is not on file. ondansetron (ZOFRAN) 4 mg tablet 30 t* 1 07/31/2017 04/24/2018 Route: ORAL Sig: Take 1 tablet by mouth every 8 hours as needed for Nausea/Vomiting. Disc: Reason for discontinue is not on file. rOPINIRole (REQUIP) 0.5 mg tablet 90 t* 5 02/25/2018 04/24/2018 Route: ORAL Sig: Take 1 tablet by mouth three times daily. Disc: Reason for discontinue is not on file. Disposition: Return for Add to May [facility]. Follow-up and Disposition History Recorded Encounter Status:Closed by LIVIA SCOTT MD on 05/05/18 PROGRESS Observed: 04/12/2018 Status: COMPLETED Source: [place] 4:02 PM [facility] REPOSITORY HNO ID: [id number] Author: Sheeba King RN Service: (none) Author Type: (none) Type: Progress Notes Filed: 04/12/2018 4:03 PM Note Text: per written order by dr scott patient is to take 2.5mg Thurs and 5mg all other days PATIENT NOTIFIED OF INFORMATION PROGRESS Observed: 04/12/2018 Status: COMPLETED Source: [place] 2:17 PM [facility] REPOSITORY HNO ID: [id number] Author: Sheeba King RN Service: (none) Author Type: (none) Type: Progress Notes Filed: 04/12/2018 2:19 PM Note Text: patient had inr completed at [facility] patients inr is 1.3 (patients inr range is 3.0-4.0) patient is currently taking 2.5mg times one dose patients last dose change was on 04/09/18 due to a high level of 6.2 (dose at that time was 7.5mg Tues,Thurs,Sat and 5mg all other days) patient has had no changes to medication except for the coumadin and no change in diet Advised patient that they would be contacted regarding medication dose and when to follow up after information is reviewed by provider. After provider review please contact the patient with information and schedule follow up appointment with coumadin clinic. FYI - patient has been scheduled for an inr follow up in 1 week on 04/17/18 ALBUMIN/CREAT RATIO Collected: 04/12/2018 Status: F Source: [place] 2:05 PM [facility] REPOSITORY TYPE CODE TESTS RESULT OUT OF REFERENCE UNITS RANGE LAB UCRR 20-300 mg/dL Creatinine,Ur 60.4 ine,Ran LAB UALBR 0.0-23.0 mg/L High Albumin Urine 50.3 Random LAB UALBCR 0-30 mg/g High Albumin/Creat 83 Ratio Result Comment: 30 to 300 mg/g indicates an increased risk for diabetic nephropathy. Greater than 300 mg/g is consistent with clinical nephropathy. (Am J Kidney Disease 1995, 25:107) Performed By: #### UACR #### [facility] [address] [address] COMP METABOLIC PANEL Collected: 04/12/2018 Status: F Source: [place] 2:02 PM [facility] REPOSITORY TYPE CODE TESTS RESULT OUT OF REFERENCE UNITS RANGE LAB TP 6.3-8.0 g/dL Protein, Total 7.0 LAB ALB 3.9-4.9 g/dL Albumin 4.2 LAB CA 8.5-10.2 mg/dL Calcium, Total 9.5 LAB TBIL 0.2-1.3 mg/dL Bilirubin, Total 0.3 LAB ALKP 32-117 U/L Alkaline Phosphatase 92 LAB AST 13-35 U/L AST High 43 LAB GLU 74-99 mg/dL Glucose High 220 Result Comment: The [place] Diabetes Association (ADA) provides guidance for cutoff values for fasting glucose and random glucose. The ADA defines fasting as no caloric intake for at least 8 hours. Fas ting plasma glucose results between 100 to 125 mg/dL indicate increased risk for diabetes (prediabetes). Fasting plasma glucose results greater than or equal to 126 mg/dL meet the criteria for diagnosis of diabetes. In the absence of unequivocal hyperglycemia, results should be confirmed by repeat testing. In a patient with classic symptoms of hyperglycemia or hyperglycemic crisis, random plasma glucose results greater than or equal to 200 mg/dL meet the criteria for diagnosis of diabetes. Reference: Standards of Medical Care in Diabetes 2016, [place] [employer] Association. Diabetes Care. 2016.39(Suppl 1). LAB BUN 7-21 mg/dL BUN High 30 LAB CRET 0.58-0.96 mg/dL Creatinine High 1.62 LAB NA 136-144 mmol/L Sodium 137 LAB K 3.7-5.1 mmol/L Potassium 4.2 LAB CL 97-105 mmol/L Chloride 97 LAB CO2 22-30 mmol/L CO2 26 LAB AGAP 9-18 mmol/L Anion Gap 14 LAB ALT 7-38 U/L ALT High 49 LAB GFRAA eGFR- Amer. 41 LAB GFRNAA . eGFR-All Other Races 34 Result Comment: eGFR (Estimated GFR) Units of measure: mL/min/1.73 meters squared eGFR is derived from the reexpressed MDRD Study equation using the following parameters: serum creatinine, age, gender and race. The creatinine assay has been calibrated to be traceable to IDMS. An eGFR <60 mL/min/1.73m2 for >3 months is consistent with chronic kidney disease. Refer to KDOQI guidelines for clinical interpretation. In patients with unstable renal function, e.g. those with acute kidney injury, the eGFR may not accurately reflect actual GFR. Performed By: #### CMP, HBA1C #### [facility] [address] [place], [place] [address] HEMOGLOBIN A1C Collected: 04/12/2018 Status: F Source: [place] 2:02 PM [facility] REPOSITORY TYPE CODE TESTS RESULT OUT OF REFERENCE UNITS RANGE LAB HGBA1C 4.3-5.6 % High Hemoglobin A1c 8.4 LAB HBA0 mg/dL Est. Average Glucose 194 Result Comment: eAG: (Estimated average glucose) is a calculated value from HgbA1c and is players club representative of the average blood glucose level in the last 2-3 month period. Performed By: #### CMP, HBA1C #### [facility] [address] [place], [place] [address] LIPID PANEL, BASIC Collected: 04/12/2018 Status: F Source: [place] 2:01 PM [facility] REPOSITORY TYPE CODE TESTS RESULT OUT OF REFERENCE UNITS RANGE LAB CHOL <200 mg/dL Cholesterol High 284 Result Comment: <200 mg/dL, Desirable 200-239 mg/dL, Borderline high >239 mg/dL, High LAB TRIGLY <150 mg/dL Triglyceride High 343 Result Comment: <150 mg/dL, Normal 150-199 mg/dL, Borderline high 200-499 mg/dL, High >499 mg/dL, Very high LAB HDL >39 mg/dL HDL-Cholesterol 52 Result Comment: 40-59 mg/dL, Acceptable >59 mg/dL, High: Negative risk factor for coronary heart disease <40 mg/dL, Low: Positive risk factor for coronary heart disease LAB LDL <100 mg/dL LDL-Cholesterol High 163 Result Comment: <100 mg/dL, Optimal 100-129 mg/dL, Near optimal/above optimal 130-159 mg/dL, Borderline high 160-189 mg/dL, High >189 mg/dL, Very high Secondary prevention optimal LDL Cholesterol levels are recommended to be < 70 mg/dL LAB NONHDL <130 mg/dL Non HDL High Cholesterol 232 Result Comment: <130 mg/dL, Optimal 130-159 mg/dL, Near optimal/above optimal 160-189 mg/dL, Borderline high 190-219 mg/dL, High >219 mg/dL, Very high Secondary prevention optimal non HDL Cholesterol levels are recommended to be < 100 mg/dL LAB FT hrs Fasting Time 2 LAB VLDL <30 mg/dL High VLDL Cholesterol 69 LAB TCHDL <5.10 High TC:HDL Ratio 5.46 LAB LDLHDL <2.54 High LDL:HDL Ratio 3.13 Result Comment: Reference: 1. National Cholesterol Education Program ATP III Guideline At-A-Glance Quick Desk Reference: National Heart, Lung, and Blood [place]. National Institutes of Health. 2001: NIH Publication No. 01-3305. 2. An International Atherosclerosis Society position paper: global recommendations for the management of dyslipidemia: executive summary, Atherosclerosis. 2014: 232(2):410-413. Performed By: #### LIPB #### [facility] [address] [place], [place] [address] PROGRESS Observed: 04/09/2018 Status: COMPLETED Source: [place] 4:38 PM [facility] REPOSITORY HNO ID: [id number] Author: Sheeba King RN Service: (none) Author Type: (none) Type: Progress Notes Filed: 04/09/2018 4:41 PM Note Text: patient had inr completed at [facility] patients inr is 6.2 (patients inr range is 3.0-4.0) patient is currently taking 7.5mg Tues,Thurs,Sat and 5mg all other days patients last dose change was on 03/26/18 due to a low level of 2.6 (dose at that time was 7.5mg Tues,Thurs and 5mg all other days) patient has had no change in medication and no missed doses and no change in diet per written order by dr scott patient is to hold times 2 dose and then on Thurs take 2.5mg and recheck on Sun. PATIENT NOTIFIED OF INFORMATION and appt scheduled PROGRESS Observed: 04/09/2018 Status: COMPLETED Source: [place] 4:02 PM [facility] REPOSITORY HNO ID: [id number] Author: Christian Brian Service: (none) Author Type: Physician Type: Progress Notes Filed: 04/09/2018 5:55 PM Note Text: Patient presents with: Sore Throat: x 1 week Nausea: x 1 week Diarrhea: x 1 week Ear Pain: x 1 week rt>lt Pain, Sinus: x 1 week Post-nasal Drip: x 1 week Cough: x 1 week Fatigue: x 1 week HPI: Feeling sick for 5-6 days. Here for worsening sore throat. Positive symptoms: Sore throat, Cough, Earache, Sinus pressure, Post nasal drainage, upset stomach, Diarrhea, fatigue, Shortness of breath, Chest pain, Chills, Body Aches, Negative symptoms: vomiting, OTC: lozenges, zofran, lomotil. Out of Breo Elipta for 3 days. She has a pulse ox at home. She admits her oxygen level has been 88-90 and pulse almost 100. PAST MEDICAL HISTORY Diagnosis Date - Allergic rhinitis used to receive allergy shots from Dr. Brown - Alopecia, unspecified 08/29/2012 - Anticoagulated on Coumadin INR goal 3.0 to 4.0 - Asthma - Benign neoplasm of stomach - Bipolar disorder, unspecified 08/29/2012 - Diabetes mellitus type 2, controlled, without complications (HCC) 08/12/2007 In records from treatment after elevated sugars in 2001 during hospital stay; no longer on any meds and sugars have been fine--either normal or just in impaired fasting glucose level - Environmental allergies 01/17/2012 - Exostosis of unspecified site 09/27/2010 - Fibromyalgia - Goiter, unspecified - Hypothyroidism 10/28/2009 - Nausea alone - Obesity - STACY treated with BiPAP [facility] supplier - Other diseases of lung, not elsewhere classified - Other hammer toe (acquired) 09/27/2010 - RA (rheumatoid arthritis) (HCC) - 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 also elevated BMI . RECOMMENDATIONS are 1.weight loss.2. not seen significant sleep apnea however absense or REM sleep sleep apnea may be understimated.Extrinsic factors leading to excessive daytime somnolence such as mood disturbances and or medication effect may be a factor PAST SURGICAL HISTORY Procedure Laterality Date - COLONOSCOP W/ OR W/O [facility] SPEC 03-06-13 Colonoscopy - EGD W/O OR W/BRUSH/WASH 02/25/2007 EGD - EGD W/O OR W/BRUSH/WASH 11/03/2011 EGD - PAST SURGICAL HISTORY OF [place] except cervix was left in; complicated with wound infection; [facility] - PAST SURGICAL HISTORY OF fundoplication May 1991 - PAST SURGICAL HISTORY OF right foot surgery on achilles tendon - PAST SURGICAL HISTORY OF 09/16/13 bone spur removed from right foot - PAST SURGICAL HISTORY OF 08/2014 Intrathecal pump implant for chronic back pain ([facility]) - PULMONARY FUNCTION TEST 05/04/05 - REMOVAL ADENOIDS,PRIMARY,<12 Y/O Adenoidectomy - REMOVAL GALLBLADDER 1990 Cholecystectomy - REMOVAL OF TONSILS,<12 Y/O Tonsillectomy - TOTAL ABDOM HYSTERECTOMY 2008 polycystic ovaries - UVULECTOMY EXCISION OF UVULA 2004 MEDICATIONS: Current Outpatient Prescriptions: adalimumab (HUMIRA) 40 mg/0.8 mL injection Inject 40 mg subcutaneously one time only. insulin glargine (LANTUS SOLOSTAR U-100 INSULIN) 100 unit/mL (3 mL) inpn Inject 60-80 Units subcutaneously daily at bedtime. Titrate up to 80 units per day as directed for high sugars nystatin (MYCOSTATIN) 100,000 unit/mL suspension 1 tsp swish and swallow until gone, 4 times daily fluticasone (FLONASE) 50 mcg/actuation nasal spray Use 1-2 Sprays in each nostril once daily. rOPINIRole (REQUIP) 0.5 mg tablet Take 1 tablet by mouth three times daily. potassium chloride ER (K-DUR, KLOR-CON) 10 mEq tablet Take 1 tablet by mouth twice daily. clonazePAM (KLONOPIN) 1 mg tablet Take 0.5-1 tablets by mouth daily at bedtime for 90 days. enoxaparin (LOVENOX) 40 mg/0.4 mL syrg 40 mg subcutaneous every 12 hours starting February 08 in the morning; take only the morning dose February 10; do not take February 11 (day of procedure); resume 40 mg every 12 hours starting evening of February 12 through morning dose February 18; do not take February 19 (day of dental procedure); resume 40 mg every 12 hours starting evening of February 20 and continue until INR therapeutic insulin aspart U-100 (NOVOLOG FLEXPEN U-100 INSULIN) 100 unit/mL inpn Inject 20 units 4 times daily with meals and as directed for high sugars Cetirizine (ZYRTEC) 10 mg cap Take by mouth daily at bedtime. fluticasone-vilanterol (BREO ELLIPTA) 200-25 mcg/dose inhaler Inhale 1 Inhalation as instructed once daily. albuterol HFA (PROVENTIL HFA, VENTOLIN HFA) 90 mcg/actuation inhaler Inhale 2 Puffs as instructed every 4 hours as needed (for cough, wheezing, chest tightness or shortness of breath. Use with spacer. ). gabapentin (NEURONTIN) 300 mg capsule Take 1 in the morning, 1 at lunch, 3 at bedtime daily furosemide (LASIX) 40 mg tablet Take 1 tablet by mouth once daily. May take one additional pill, PRN for increased swelling Benzonatate 200 mg capsule Take 1 capsule by mouth three times daily as needed. triamcinolone acetonide (KENALOG) 0.1 % cream Apply 1 application to affected area three times daily as needed (itchy rash/psoriasis on hands). Apply sparingly insulin needles, DISPOSABLE, (BD INSULIN PEN NEEDLE UF) 31 gauge x 5/16 ndle Use with insulin pens 4 times daily as directed insulin needles, DISPOSABLE, (UNIFINE PENTIPS) 31 gauge x 5/16 ndle Inject 1 Each subcutaneously four times daily. lisinopril 2.5 mg tablet TAKE 1 TABLET BY MOUTH EVERY DAY cholecalciferol (VITAMIN D3) 5,000 unit tab Take 1 tablet by mouth once daily. warfarin (COUMADIN) 7.5 mg tablet Take 1 tablet by mouth daily as directed. warfarin (COUMADIN) 5 mg tablet Take 1 tablet by mouth once daily. SHENG - 7.5mg , sun and 5mg all other days or as directed multivitamin with minerals (HAIR,SKIN AND NAILS) tablet Take 1 tablet by mouth three times daily. alpha tocopheryl acetate (VITAMIN E) 400 unit capsule Take 2 capsules by mouth once daily. ondansetron (ZOFRAN) 4 mg tablet Take 1 tablet by mouth every 8 hours as needed for Nausea/Vomiting. Omeprazole 40 mg capsule Take 1 capsule by mouth once daily. sucralfate (CARAFATE) 100 mg/mL suspension Take 10 mL by mouth four times daily as needed. As directed (usually before meals and bedtime as needed) simvastatin (ZOCOR) 10 mg tablet Take 1 tablet by mouth daily at bedtime. COMPOUNDED PRESCRIPTION SHOWER CHAIR WITH BACK DX M06.9 I74.9 COMPOUNDED PRESCRIPTION SUCTION STYLE GRAB BAR FOR SHOWER WALL INSTALLATION DX M 06.9 I 74.9 verapamil (CALAN, ISOPTIN) 40 mg tablet Take 1 tablet by mouth three times daily. albuterol HFA (PROAIR HFA) 90 mcg/actuation inhaler Inhale 2 Puffs as instructed every 4 hours as needed for Wheezing/Shortness of Breath. loratadine (CLARITIN) 10 mg tablet Take 1 tablet by mouth once daily. dicyclomine (BENTYL) 10 mg capsule Take 1 capsule by mouth four times daily as needed (cramping pains and urgency with bowels). oxyCODONE-acetaminophen (PERCOCET) 5-325 mg tablet Take 1 tablet by mouth every 4 hours as needed. colesevelam (WELCHOL) 625 mg tablet Take 1-2 tablets by mouth twice daily with meals. as directed for possible bile gastritis Patient taking 1 in am and 1 in evening COUMADIN 1 mg tablet take 5mg daily except for Sunday, take 7.5 mg on Sunday or as directedDO NOT SUBSITUTE WITH GENERIC. QUEtiapine (SEROQUEL) 25 mg tablet Take 1 tablet by mouth twice daily. spironolactone (ALDACTONE) 25 mg tablet Take 1 tablets by mouth once daily in the AM fluticasone (ALLERGY RELIEF, FLUTICASONE,) 50 mcg/actuation nasal spray Use 2 Sprays in each nostril once daily as needed. topiramate (TOPAMAX) 50 mg tablet Take 1 tablet by mouth twice daily. albuterol (PROVENTIL) 2.5 mg /3 mL (0.083 %) nebulizer solution Use 3 mL via nebulizer every 6 hours as needed. levothyroxine (LEVOXYL) 100 mcg tablet Take 1 tablet by mouth daily before breakfast. Blood Pressure Test Kit-Wrist kit Use to check blood pressure once daily as directed DX:I10 hydroxychloroquine (PLAQUENIL) 200 mg tablet Take 1 tablet by mouth once daily. blood sugar diagnostic (TRUE METRIX GLUCOSE TEST STRIP) test strip Test blood sugar 4 x daily. Dx: E11.22. Insulin use: Yes budesonide-formoterol (SYMBICORT) 160-4.5 mcg/actuation inhaler Inhale 2 Puffs as instructed twice daily. tiZANidine (ZANAFLEX) 4 mg tablet Take 1 tablet by mouth every 8 hours as needed (muscle spasms). Dr Wetzel CALCIUM CARB/MAGNESIUM OX,CARB (YASMINE-MAG ORAL) Take by mouth. nystatin (MYCOSTATIN) cream Apply 1 application to affected area twice daily. As needed escitalopram oxalate (LEXAPRO) 20 mg tablet Take 1 tablet by mouth once daily. COMPOUNDED PRESCRIPTION Morphine 15 mg per pump filled every [address] Wetzel leflunomide (ARAVA) 20 mg tablet Take 1 tablet by mouth once daily. Lactobacillus acidophilus (PROBIOTIC) 10 billion cell cap Take 2 tablets by mouth daily at bedtime. vitamin b complex (B COMPLETE) tab Take 1 tablet by mouth once daily. COMPOUNDED PRESCRIPTION Decrease BiPAP settings to 11/5 cmH2O. Diagnosis G47.33 [facility] [employer] [facility] CUSTOM JOBST KNEE HI COMPRESSION STOCKING 30-40MM/HG. Dispense 2 pair Diagnosis:(I87.2) Venous insufficiency of both lower extremities; (R60.9) Edema ketoconazole (NIZORAL) 2 % cream Apply 1 application to affected area once daily. as needed to corners of lips and other rash as directed [place]-3 Fatty Acids-Vitamin E (FISH OIL) 1,000 mg cap Take 1 capsule by mouth three times daily. traZODONE 100 mg ORAL tablet Take 2 tablets by mouth daily at bedtime. (Dr. Ruano--noted that 1 pill not adequate) diphenoxylate-atropine (LOMOTIL) 2.5-0.025 mg per tablet Take 1 tablet by mouth before meals and at bedtime for 30 days. as needed No current facility-administered medications for this visit. ALLERGIES: ALLERGIES Allergen Reactions - Environmental [Othe* Rash, Cough - Vitamin K Swelling - Cholestyramine Other: See Comments constipation - Ibuprofen Diarrhea - Macrobid [Nitrofura* Rash states that broke out all over with rash last time was given this in September 2010 - Peroxide [Other] Intolerance - Sulfa (Sulfonamide * Rash - Tylenol [Acetaminop* Vomiting Nausea VITALS: BP 136/82 Pulse 111 Temp 37.3 ?C (99.2 ?F) Resp 18 Wt 123.4 kg (272 lb) SpO2 90% BMI 53.12 kg/m? Last 8 Encounter Pulse Readings: Date: Pulse: 04/09/2018 111 01/22/2018 105 12/12/2017 68 11/27/2017 108 07/31/2017 68 05/15/2017 84 05/08/2017 76 03/12/2017 115 Vitals PULSE OX 03/12/2017 88 11/27/2017 94 01/22/2018 93 04/09/2018 90 PHYSICAL EXAM: GEN: Alert, in no distress, obese HEENT: PERRL, EOMI, conjunctiva clear Ears: canals clear, TMs without erythema, bulge, or effusion Sinuses: non-tender frontal sinus, non-tender maxillary sinuses Throat: moist mucous membranes, pharyngeal erythema with scant whitish in creases Neck: supple, no thyromegaly, no lymphadenopathy HEART: regular rate and rhythm, no murmurs LUNGS: clear to auscultation, no wheezes or crackles, no increased WOB CHEST: Tender to palpation ASSESSMENT/PLAN: 1. Thrush - ICD9: 112.0, ICD10: B37.0 (primary diagnosis) 2. Sore throat - ICD9: 462, ICD10: J02.9 - RAPID STREP TEST B/O - negative She has almost a full bottle of nystatin at home and will start that. I advised she should finish the entire bottle. Follow up in the ER with worsening shortness of breath, chest pain, or failure of her heart rate to drop below 100. Christian Brian MD CNOV Observed: 04/09/2018 Status: COMPLETED Source: [place] 3:45 PM [facility] REPOSITORY Office Visit (WSTR) DEBORA MEYERS ([id number]) 1965 F Date Time Provider Department 04/09/18 3:45 PM CHRISTIAN BRIAN [facility] During your visit today, we recorded the following information about you: Temperature Pulse Respiration Blood pressure 99.2 degrees 111/minute 18/minute 136/82 Weight 123.4 kg Christian Brian MD 04/09/2018 5:55 PM Signed Patient presents with: Sore Throat: x 1 week Nausea: x 1 week Diarrhea: x 1 week Ear Pain: x 1 week rt>lt Pain, Sinus: x 1 week Post-nasal Drip: x 1 week Cough: x 1 week Fatigue: x 1 week HPI: Feeling sick for 5-6 days. Here for worsening sore throat. Positive symptoms: Sore throat, Cough, Earache, Sinus pressure, Post nasal drainage, upset stomach, Diarrhea, fatigue, Shortness of breath, Chest pain, Chills, Body Aches, Negative symptoms: vomiting, OTC: lozenges, zofran, lomotil. Out of Brittaneyo Elipta for 3 days. She has a pulse ox at home. She admits her oxygen level has been 88-90 and pulse almost 100. PAST MEDICAL HISTORY Diagnosis Date - Allergic rhinitis used to receive allergy shots from Dr. Brown - Alopecia, unspecified 08/29/2012 - Anticoagulated on Coumadin INR goal 3.0 to 4.0 - Asthma - Benign neoplasm of stomach - Bipolar disorder, unspecified 08/29/2012 - Diabetes mellitus type 2, controlled, without complications (HCC) 08/12/2007 In records from treatment after elevated sugars in 2001 during hospital stay; no longer on any meds and sugars have been fine--either normal or just in impaired fasting glucose level - Environmental allergies 01/17/2012 - Exostosis of unspecified site 09/27/2010 - Fibromyalgia - Goiter, unspecified - Hypothyroidism 10/28/2009 - Nausea alone - Obesity - STACY treated with BiPAP [facility] supplier - Other diseases of lung, not elsewhere classified - Other hammer toe (acquired) 09/27/2010 - RA (rheumatoid arthritis) (HCC) - 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 also elevated BMI . RECOMMENDATIONS are 1.weight loss.2. not seen significant sleep apnea however absense or REM sleep sleep apnea may be understimated.Extrinsic factors leading to excessive daytime somnolence such as mood disturbances and or medication effect may be a factor PAST SURGICAL HISTORY Procedure Laterality Date - COLONOSCOP W/ OR W/O BRSH SPEC 03-06-13 Colonoscopy - EGD W/O OR W/BRUSH/WASH 02/25/2007 EGD - EGD W/O OR W/BRUSH/WASH 11/03/2011 EGD - PAST SURGICAL HISTORY OF [place] except cervix was left in; complicated with wound infection; [facility] - PAST SURGICAL HISTORY OF fundoplication May 1991 - PAST SURGICAL HISTORY OF right foot surgery on achilles tendon - PAST SURGICAL HISTORY OF 09/16/13 bone spur removed from right foot - PAST SURGICAL HISTORY OF 08/2014 Intrathecal pump implant for chronic back pain ([facility]) - PULMONARY FUNCTION TEST 05/04/05 - REMOVAL ADENOIDS,PRIMARY,<12 Y/O Adenoidectomy - REMOVAL GALLBLADDER 1990 Cholecystectomy - REMOVAL OF TONSILS,<12 Y/O Tonsillectomy - TOTAL ABDOM HYSTERECTOMY 2008 polycystic ovaries - UVULECTOMY EXCISION OF UVULA 2004 MEDICATIONS: Current Outpatient Prescriptions: adalimumab (HUMIRA) 40 mg/0.8 mL injection Inject 40 mg subcutaneously one time only. insulin glargine (LANTUS SOLOSTAR U-100 INSULIN) 100 unit/mL (3 mL) inpn Inject 60-80 Units subcutaneously daily at bedtime. Titrate up to 80 units per day as directed for high sugars nystatin (MYCOSTATIN) 100,000 unit/mL suspension 1 tsp swish and swallow until gone, 4 times daily fluticasone (FLONASE) 50 mcg/actuation nasal spray Use 1-2 Sprays in each nostril once daily. rOPINIRole (REQUIP) 0.5 mg tablet Take 1 tablet by mouth three times daily. potassium chloride ER (K-DUR, KLOR-CON) 10 mEq tablet Take 1 tablet by mouth twice daily. clonazePAM (KLONOPIN) 1 mg tablet Take 0.5-1 tablets by mouth daily at bedtime for 90 days. enoxaparin (LOVENOX) 40 mg/0.4 mL syrg 40 mg subcutaneous every 12 hours starting February 08 in the morning; take only the morning dose February 10; do not take February 11 (day of procedure); resume 40 mg every 12 hours starting evening of February 12 through morning dose February 18; do not take February 19 (day of dental procedure); resume 40 mg every 12 hours starting evening of February 20 and continue until INR therapeutic insulin aspart U-100 (NOVOLOG FLEXPEN U-100 INSULIN) 100 unit/mL inpn Inject 20 units 4 times daily with meals and as directed for high sugars Cetirizine (ZYRTEC) 10 mg cap Take by mouth daily at bedtime. fluticasone-vilanterol (BREO ELLIPTA) 200-25 mcg/dose inhaler Inhale 1 Inhalation as instructed once daily. albuterol HFA (PROVENTIL HFA, VENTOLIN HFA) 90 mcg/actuation inhaler Inhale 2 Puffs as instructed every 4 hours as needed (for cough, wheezing, chest tightness or shortness of breath. Use with spacer. ). gabapentin (NEURONTIN) 300 mg capsule Take 1 in the morning, 1 at lunch, 3 at bedtime daily furosemide (LASIX) 40 mg tablet Take 1 tablet by mouth once daily. May take one additional pill, PRN for increased swelling Benzonatate 200 mg capsule Take 1 capsule by mouth three times daily as needed. triamcinolone acetonide (KENALOG) 0.1 % cream Apply 1 application to affected area three times daily as needed (itchy rash/psoriasis on hands). Apply sparingly insulin needles, DISPOSABLE, (BD INSULIN PEN NEEDLE UF) 31 gauge x 5/16 ndle Use with insulin pens 4 times daily as directed insulin needles, DISPOSABLE, (UNIFINE PENTIPS) 31 gauge x 5/16 ndle Inject 1 Each subcutaneously four times daily. lisinopril 2.5 mg tablet TAKE 1 TABLET BY MOUTH EVERY DAY cholecalciferol (VITAMIN D3) 5,000 unit tab Take 1 tablet by mouth once daily. warfarin (COUMADIN) 7.5 mg tablet Take 1 tablet by mouth daily as directed. warfarin (COUMADIN) 5 mg tablet Take 1 tablet by mouth once daily. SHENG - 7.5mg , sun and 5mg all other days or as directed multivitamin with minerals (HAIR,SKIN AND NAILS) tablet Take 1 tablet by mouth three times daily. alpha tocopheryl acetate (VITAMIN E) 400 unit capsule Take 2 capsules by mouth once daily. ondansetron (ZOFRAN) 4 mg tablet Take 1 tablet by mouth every 8 hours as needed for Nausea/Vomiting. Omeprazole 40 mg capsule Take 1 capsule by mouth once daily. sucralfate (CARAFATE) 100 mg/mL suspension Take 10 mL by mouth four times daily as needed. As directed (usually before meals and bedtime as needed) simvastatin (ZOCOR) 10 mg tablet Take 1 tablet by mouth daily at bedtime. COMPOUNDED PRESCRIPTION SHOWER CHAIR WITH BACK DX M06.9 I74.9 COMPOUNDED PRESCRIPTION SUCTION STYLE GRAB BAR FOR SHOWER WALL INSTALLATION DX M 06.9 I 74.9 verapamil (CALAN, ISOPTIN) 40 mg tablet Take 1 tablet by mouth three times daily. albuterol HFA (PROAIR HFA) 90 mcg/actuation inhaler Inhale 2 Puffs as instructed every 4 hours as needed for Wheezing/Shortness of Breath. loratadine (CLARITIN) 10 mg tablet Take 1 tablet by mouth once daily. dicyclomine (BENTYL) 10 mg capsule Take 1 capsule by mouth four times daily as needed (cramping pains and urgency with bowels). oxyCODONE-acetaminophen (PERCOCET) 5-325 mg tablet Take 1 tablet by mouth every 4 hours as needed. colesevelam (WELCHOL) 625 mg tablet Take 1-2 tablets by mouth twice daily with meals. as directed for possible bile gastritis Patient taking 1 in am and 1 in evening COUMADIN 1 mg tablet take 5mg daily except for Sunday, take 7.5 mg on Sunday or as directedDO NOT SUBSITUTE WITH GENERIC. QUEtiapine (SEROQUEL) 25 mg tablet Take 1 tablet by mouth twice daily. spironolactone (ALDACTONE) 25 mg tablet Take 1 tablets by mouth once daily in the AM fluticasone (ALLERGY RELIEF, FLUTICASONE,) 50 mcg/actuation nasal spray Use 2 Sprays in each nostril once daily as needed. topiramate (TOPAMAX) 50 mg tablet Take 1 tablet by mouth twice daily. albuterol (PROVENTIL) 2.5 mg /3 mL (0.083 %) nebulizer solution Use 3 mL via nebulizer every 6 hours as needed. levothyroxine (LEVOXYL) 100 mcg tablet Take 1 tablet by mouth daily before breakfast. Blood Pressure Test Kit-Wrist kit Use to check blood pressure once daily as directed DX:I10 hydroxychloroquine (PLAQUENIL) 200 mg tablet Take 1 tablet by mouth once daily. blood sugar diagnostic (TRUE METRIX GLUCOSE TEST STRIP) test strip Test blood sugar 4 x daily. Dx: E11.22. Insulin use: Yes budesonide-formoterol (SYMBICORT) 160-4.5 mcg/actuation inhaler Inhale 2 Puffs as instructed twice daily. tiZANidine (ZANAFLEX) 4 mg tablet Take 1 tablet by mouth every 8 hours as needed (muscle spasms). Dr Wetzel CALCIUM CARB/MAGNESIUM OX,CARB (YASMINE-MAG ORAL) Take by mouth. nystatin (MYCOSTATIN) cream Apply 1 application to affected area twice daily. As needed escitalopram oxalate (LEXAPRO) 20 mg tablet Take 1 tablet by mouth once daily. COMPOUNDED PRESCRIPTION Morphine 15 mg per pump filled every [address] Wetzel leflunomide (ARAVA) 20 mg tablet Take 1 tablet by mouth once daily. Lactobacillus acidophilus (PROBIOTIC) 10 billion cell cap Take 2 tablets by mouth daily at bedtime. vitamin b complex (B COMPLETE) tab Take 1 tablet by mouth once daily. COMPOUNDED PRESCRIPTION Decrease BiPAP settings to 11/5 cmH2O. Diagnosis G47.33 Miscellaneous Medical Supply [facility] CUSTOM JOBST KNEE HI COMPRESSION STOCKING 30-40MM/HG. Dispense 2 pair Diagnosis:(I87.2) Venous insufficiency of both lower extremities; (R60.9) Edema ketoconazole (NIZORAL) 2 % cream Apply 1 application to affected area once daily. as needed to corners of lips and other rash as directed [place]-3 Fatty Acids-Vitamin E (FISH OIL) 1,000 mg cap Take 1 capsule by mouth three times daily. traZODONE 100 mg ORAL tablet Take 2 tablets by mouth daily at bedtime. (Dr. Ruano--noted that 1 pill not adequate) diphenoxylate-atropine (LOMOTIL) 2.5-0.025 mg per tablet Take 1 tablet by mouth before meals and at bedtime for 30 days. as needed No current facility-administered medications for this visit. ALLERGIES: ALLERGIES Allergen Reactions - Environmental [Othe* Rash, Cough - Vitamin K Swelling - Cholestyramine Other: See Comments constipation - Ibuprofen Diarrhea - Macrobid [Nitrofura* Rash states that broke out all over with rash last time was given this in September 2010 - Peroxide [Other] Intolerance - Sulfa (Sulfonamide * Rash - Tylenol [Acetaminop* Vomiting Nausea VITALS: BP 136/82 Pulse 111 Temp 37.3 ?C (99.2 ?F) Resp 18 Wt 123.4 kg (272 lb) SpO2 90% BMI 53.12 kg/m? Last 8 Encounter Pulse Readings: Date: Pulse: 04/09/2018 111 01/22/2018 105 12/12/2017 68 11/27/2017 108 07/31/2017 68 05/15/2017 84 05/08/2017 76 03/12/2017 115 Vitals PULSE OX 03/12/2017 88 11/27/2017 94 01/22/2018 93 04/09/2018 90 PHYSICAL EXAM: GEN: Alert, in no distress, obese HEENT: PERRL, EOMI, conjunctiva clear Ears: canals clear, TMs without erythema, bulge, or effusion Sinuses: non-tender frontal sinus, non-tender maxillary sinuses Throat: moist mucous membranes, pharyngeal erythema with scant whitish in creases Neck: supple, no thyromegaly, no lymphadenopathy HEART: regular rate and rhythm, no murmurs LUNGS: clear to auscultation, no wheezes or crackles, no increased WOB CHEST: Tender to palpation ASSESSMENT/PLAN: 1. Thrush - ICD9: 112.0, ICD10: B37.0 (primary diagnosis) 2. Sore throat - ICD9: 462, ICD10: J02.9 - RAPID STREP TEST B/O - negative She has almost a full bottle of nystatin at home and will start that. I advised she should finish the entire bottle. Follow up in the ER with worsening shortness of breath, chest pain, or failure of her heart rate to drop below 100. Christian Brian MD Referring Provider: SELF [200] Allergies As of Date: 04/09/2018 Noted Allergy Reaction environmental [Other] 07/14/2005 2 - Rash 3 - Cough VITAMIN K 07/14/2005 7 - Swelling CHOLESTYRAMINE 03/31/2013 14 - Other: See Comments Comments: constipation IBUPROFEN 06/29/2009 6 - Diarrhea MACROBID (NITROFURANTOIN MONOHYD/*12/06/2010 2 - Rash Comments: states that broke out all over with rash last time was given this in September 2010 peroxide [Other] 07/14/2005 5 - Intolerance SULFA (SULFONAMIDE ANTIBIOTICS) 02/05/2013 2 - Rash TYLENOL (ACETAMINOPHEN) 03/17/2014 11 - Vomiting Comments: Nausea Date Reviewed: 04/09/2018 Reviewed by: Sheeba King RN - Fully Assessed Reason for Visit: Sore Throat [200] Cmt: x 1 week Nausea [70] Cmt: x 1 week Diarrhea [35] Cmt: x 1 week Ear Pain [817] Cmt: x 1 week rt>lt Pain, Sinus [857] Cmt: x 1 week Post-nasal Drip [1168] Cmt: x 1 week Cough [28] Cmt: x 1 week Fatigue [46] Cmt: x 1 week Primary Visit Diagnosis:Thrush [B37.0] Other Visit Diagnosis:Sore throat [J02.9] Order(s):RAPID STREP TEST B/O [[id number]] Order #: [id number] Prescriptions as of 04/09/2018 Sig: ADALIMUMAB 40 MG/0.8 ML SUBCU* Inject 40 mg subcutaneously o* INSULIN GLARGINE (U-100) 100 * Inject 60-80 Units subcutaneo* NYSTATIN 100,000 UNIT/ML ORAL* 1 tsp swish and swallow until* FLUTICASONE 50 MCG/ACTUATION * Use 1-2 Sprays in each nostri* ROPINIROLE 0.5 MG TABLET Take 1 tablet by mouth three * POTASSIUM CHLORIDE ER 10 MEQ * Take 1 tablet by mouth twice * CLONAZEPAM 1 MG TABLET Take 0.5-1 tablets by mouth d* ENOXAPARIN 40 MG/0.4 ML SUBCU* 40 mg subcutaneous every 12 h* INSULIN ASPART U-100 100 UNI* Inject 20 units 4 times daily* CETIRIZINE 10 MG CAPSULE Take by mouth daily at bedtim* FLUTICASONE 200 MCG-VILANTERO* Inhale 1 Inhalation as instru* ALBUTEROL SULFATE HFA 90 MCG/* Inhale 2 Puffs as instructed * GABAPENTIN 300 MG CAPSULE Take 1 in the morning, 1 at l* FUROSEMIDE 40 MG TABLET Take 1 tablet by mouth once d* BENZONATATE 200 MG CAPSULE Take 1 capsule by mouth three* TRIAMCINOLONE ACETONIDE 0.1 %* Apply 1 application to affect* PEN NEEDLE, DIABETIC 31 GAUGE* Use with insulin pens 4 times* PEN NEEDLE, DIABETIC 31 GAUGE* Inject 1 Each subcutaneously * LISINOPRIL 2.5 MG TABLET TAKE 1 TABLET BY MOUTH EVERY * CHOLECALCIFEROL (VITAMIN D3) * Take 1 tablet by mouth once d* WARFARIN 7.5 MG TABLET Take 1 tablet by mouth daily * WARFARIN 5 MG TABLET Take 1 tablet by mouth once d* MULTIVITAMIN WITH MINERALS TA* Take 1 tablet by mouth three * VITAMIN E 400 UNIT CAPSULE Take 2 capsules by mouth once* ONDANSETRON HCL 4 MG TABLET Take 1 tablet by mouth every * OMEPRAZOLE 40 MG CAPSULE,LALITO* Take 1 capsule by mouth once * SUCRALFATE 100 MG/ML ORAL BART* Take 10 mL by mouth four time* SIMVASTATIN 10 MG TABLET Take 1 tablet by mouth daily * COMPOUNDED PRESCRIPTION SHOWER CHAIR WITH BACK D* COMPOUNDED PRESCRIPTION SUCTION STYLE GRAB BAR FOR SH* VERAPAMIL 40 MG TABLET Take 1 tablet by mouth three * ALBUTEROL SULFATE HFA 90 MCG/* Inhale 2 Puffs as instructed * LORATADINE 10 MG TABLET Take 1 tablet by mouth once d* DICYCLOMINE 10 MG CAPSULE Take 1 capsule by mouth four * OXYCODONE-ACETAMINOPHEN 5 MG-* Take 1 tablet by mouth every * COLESEVELAM 625 MG TABLET Take 1-2 tablets by mouth twi* COUMADIN 1 MG TABLET take 5mg daily except for Sun* QUETIAPINE 25 MG TABLET Take 1 tablet by mouth twice * SPIRONOLACTONE 25 MG TABLET Take 1 tablets by mouth once * FLUTICASONE 50 MCG/ACTUATION * Use 2 Sprays in each nostril * TOPIRAMATE 50 MG TABLET Take 1 tablet by mouth twice * ALBUTEROL SULFATE 2.5 MG/3 ML* Use 3 mL via nebulizer every * LEVOTHYROXINE 100 MCG TABLET Take 1 tablet by mouth daily * BLOOD PRESSURE TEST KIT-WRIST* Use to check blood pressure o* HYDROXYCHLOROQUINE 200 MG TAB* Take 1 tablet by mouth once d* BLOOD SUGAR DIAGNOSTIC STRIPS Test blood sugar 4 x daily. D* BUDESONIDE-FORMOTEROL HFA 160* Inhale 2 Puffs as instructed * TIZANIDINE 4 MG TABLET Take 1 tablet by mouth every * YASMINE-MAG ORAL Take by mouth. NYSTATIN 100,000 UNIT/GRAM TO* Apply 1 application to affect* ESCITALOPRAM 20 MG TABLET Take 1 tablet by mouth once d* COMPOUNDED PRESCRIPTION Morphine 15 mg per pump fille* LEFLUNOMIDE 20 MG TABLET Take 1 tablet by mouth once d* LACTOBACILLUS ACIDOPHILUS 10 * Take 2 tablets by mouth daily* VITAMIN B COMPLEX TABLET Take 1 tablet by mouth once d* COMPOUNDED PRESCRIPTION Decrease BiPAP settings to 11* MISCELLANEOUS MEDICAL SUPPLY * CUSTOM JOBST KNEE HI KIRSTY* KETOCONAZOLE 2 % TOPICAL CREAM Apply 1 application to affect* OMEGA-3 FATTY ACIDS-VITAMIN E* Take 1 capsule by mouth three* TRAZODONE 100 MG TABLET Take 2 tablets by mouth daily* DIPHENOXYLATE-ATROPINE 2.5 MG* Take 1 tablet by mouth before* Problem List As Of Date 04/09/2018 Noted Resolved OTHER LUNG DISEASE NEC [J98.4] Asthma [J45.909] OTHER UNSPEC SLEEP APNEA [G47.30] Dysmetabolic syndrome X [E88.81] 09/11/2011 Fibromyalgia [URV1134] Embolism and thrombosis (HCC) [I74.9] INVALID FOR* GOITER NOS [E04.9] REFLUX ESOPHAGITIS [K21.0] NAUSEA ALONE [R11.0] ACUTE GASTRITIS W/O HEMORRHAGE [K29.00] INVALID FOR* CONSTIPATION NOS [K59.00] INVALID FOR* More... 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 Obstructive Sleep Apnea [G47.33] INVALID FOR* More... Hypothyroidism [E03.9] INVALID FOR* Exostosis of unspecified site [M89.8X9] INVALID FOR*11/27/2017 Other hammer toe (acquired) [M20.40] INVALID FOR*11/27/2017 Hx of hysterectomy [Z90.710] INVALID FOR* More... Allergic rhinitis [J30.9] More... 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] INVALID FOR* Environmental allergies [Z91.09] INVALID FOR*11/27/2017 Morbid obesity due to excess calories (HCC) [E6* Chronic kidney disease, stage III (moderate) [N*INVALID FOR*11/27/2017 Essential hypertension [I10] INVALID FOR* Nephrolithiasis [N20.0] INVALID FOR* Vitamin D deficiency [E55.9] INVALID FOR* Rheumatoid arthritis (HCC) [M06.9] INVALID FOR* Bipolar disorder, unspecified [F31.9] INVALID FOR* Alopecia, unspecified [L65.9] INVALID FOR*11/27/2017 Personal history of pulmonary embolism [Z86.711]INVALID FOR* Irritable bowel syndrome [K58.9] INVALID FOR* Neuropathy [G62.9] INVALID FOR* Incisional hernia [K43.2] INVALID FOR* Polycythemia, secondary [D75.1] INVALID FOR* Anticoagulated on Coumadin [Z51.81, Z79.01] INVALID FOR* STACY treated with BiPAP [G47.33] More... Type 2 DM with CKD stage 3 and hypertension (HC*INVALID FOR* Polypharmacy [Z79.899] INVALID FOR* Noncompliance with treatment [Z91.19] INVALID FOR* CKD (chronic kidney disease) stage 4, GFR 15-*INVALID FOR*08/26/2017 Nonallergic rhinitis [J31.0] INVALID FOR* Encounter Status:Closed by CHRISTIAN BRIAN MD on 04/09/18 CNPTOUTREAGUSTAVO Observed: 04/02/2018 Status: COMPLETED Source: [place] 12:00 AM [facility] REPOSITORY Patient Outreach (FAMPST) DEBORA MEYERS ([id number]) 1965 F Date Time Provider Department 04/02/18 [facility] During your visit today, we recorded the following information about you: Allergies As of Date: 04/02/2018 Noted Allergy Reaction environmental [Other] 07/14/2005 2 - Rash 3 - Cough VITAMIN K 07/14/2005 7 - Swelling CHOLESTYRAMINE 03/31/2013 14 - Other: See Comments Comments: constipation IBUPROFEN 06/29/2009 6 - Diarrhea MACROBID (NITROFURANTOIN MONOHYD/*12/06/2010 2 - Rash Comments: states that broke out all over with rash last time was given this in September 2010 peroxide [Other] 07/14/2005 5 - Intolerance SULFA (SULFONAMIDE ANTIBIOTICS) 02/05/2013 2 - Rash TYLENOL (ACETAMINOPHEN) 03/17/2014 11 - Vomiting Comments: Nausea Date Reviewed: 03/26/2018 Reviewed by: Sheeba King RN - Fully Assessed Visit Diagnosis:Medication management [Z79.899] Order(s):LIPID PANEL BASIC [SQLIPB] Order #: [id number] FUTURE Prescriptions as of 04/02/2018 Sig: X INSULIN GLARGINE (U-100) 100 * Inject 60-80 Units subcutaneo* NYSTATIN 100,000 UNIT/ML ORAL* 1 tsp swish and swallow until* FLUTICASONE 50 MCG/ACTUATION * Use 1-2 Sprays in each nostri* X ROPINIROLE 0.5 MG TABLET Take 1 tablet by mouth three * X POTASSIUM CHLORIDE ER 10 MEQ * Take 1 tablet by mouth twice * X CLONAZEPAM 1 MG TABLET Take 0.5-1 tablets by mouth d* X ENOXAPARIN 40 MG/0.4 ML SUBCU* 40 mg subcutaneous every 12 h* X INSULIN ASPART U-100 100 UNI* Inject 20 units 4 times daily* CETIRIZINE 10 MG CAPSULE Take by mouth daily at bedtim* FLUTICASONE 200 MCG-VILANTERO* Inhale 1 Inhalation as instru* ALBUTEROL SULFATE HFA 90 MCG/* Inhale 2 Puffs as instructed * X GABAPENTIN 300 MG CAPSULE Take 1 in the morning, 1 at l* X FUROSEMIDE 40 MG TABLET Take 1 tablet by mouth once d* X DIPHENOXYLATE-ATROPINE 2.5 MG* Take 1 tablet by mouth before* BENZONATATE 200 MG CAPSULE Take 1 capsule by mouth three* Patient not taking: Reported on 08/12/2018 TRIAMCINOLONE ACETONIDE 0.1 %* Apply 1 application to affect* PEN NEEDLE, DIABETIC 31 GAUGE* Inject 1 Each subcutaneously * X PEN NEEDLE, DIABETIC 31 GAUGE* Use with insulin pens 4 times* LISINOPRIL 2.5 MG TABLET TAKE 1 TABLET BY MOUTH EVERY * Patient not taking: Reported on 08/12/2018 CHOLECALCIFEROL (VITAMIN D3) * Take 1 tablet by mouth once d* Patient not taking: Reported on 08/12/2018 WARFARIN 7.5 MG TABLET Take 1 tablet by mouth daily * WARFARIN 5 MG TABLET Take 1 tablet by mouth once d* MULTIVITAMIN WITH MINERALS TA* Take 1 tablet by mouth three * Patient not taking: Reported on 08/12/2018 VITAMIN E 400 UNIT CAPSULE Take 2 capsules by mouth once* SUCRALFATE 100 MG/ML ORAL BART* Take 10 mL by mouth four time* Patient not taking: Reported on 08/12/2018 X ONDANSETRON HCL 4 MG TABLET Take 1 tablet by mouth every * X OMEPRAZOLE 40 MG CAPSULE,LALITO* Take 1 capsule by mouth once * X SIMVASTATIN 10 MG TABLET Take 1 tablet by mouth daily * COMPOUNDED PRESCRIPTION SHOWER CHAIR WITH BACK D* COMPOUNDED PRESCRIPTION SUCTION STYLE GRAB BAR FOR SH* X VERAPAMIL 40 MG TABLET Take 1 tablet by mouth three * ALBUTEROL SULFATE HFA 90 MCG/* Inhale 2 Puffs as instructed * X LORATADINE 10 MG TABLET Take 1 tablet by mouth once d* X DICYCLOMINE 10 MG CAPSULE Take 1 capsule by mouth four * COUMADIN 1 MG TABLET take 5mg daily except for Sun* QUETIAPINE 25 MG TABLET Take 1 tablet by mouth twice * X OXYCODONE-ACETAMINOPHEN 5 MG-* Take 1 tablet by mouth every * X COLESEVELAM 625 MG TABLET Take 1-2 tablets by mouth twi* X SPIRONOLACTONE 25 MG TABLET Take 1 tablets by mouth once * X FLUTICASONE 50 MCG/ACTUATION * Use 2 Sprays in each nostril * X TOPIRAMATE 50 MG TABLET Take 1 tablet by mouth twice * ALBUTEROL SULFATE 2.5 MG/3 ML* Use 3 mL via nebulizer every * X LEVOTHYROXINE 100 MCG TABLET Take 1 tablet by mouth daily * BLOOD PRESSURE TEST KIT-WRIST* Use to check blood pressure o* HYDROXYCHLOROQUINE 200 MG TAB* Take 1 tablet by mouth once d* X BLOOD SUGAR DIAGNOSTIC STRIPS Test blood sugar 4 x daily. D* BUDESONIDE-FORMOTEROL HFA 160* Inhale 2 Puffs as instructed * Patient not taking: Reported on 08/12/2018 X TIZANIDINE 4 MG TABLET Take 1 tablet by mouth every * YASMINE-MAG ORAL Take by mouth. NYSTATIN 100,000 UNIT/GRAM TO* Apply 1 application to affect* ESCITALOPRAM 20 MG TABLET Take 1 tablet by mouth once d* COMPOUNDED PRESCRIPTION Morphine 15 mg per pump fille* LACTOBACILLUS ACIDOPHILUS 10 * Take 2 tablets by mouth daily* X LEFLUNOMIDE 20 MG TABLET Take 1 tablet by mouth once d* VITAMIN B COMPLEX TABLET Take 1 tablet by mouth once d* COMPOUNDED PRESCRIPTION Decrease BiPAP settings to 11* MISCELLANEOUS MEDICAL SUPPLY * CUSTOM JOBST KNEE HI KIRSTY* KETOCONAZOLE 2 % TOPICAL CREAM Apply 1 application to affect* OMEGA-3 FATTY ACIDS-VITAMIN E* Take 1 capsule by mouth three* X TRAZODONE 100 MG TABLET Take 2 tablets by mouth daily* Problem List As Of Date 04/02/2018 Noted Resolved OTHER LUNG DISEASE NEC [J98.4] Asthma [J45.909] OTHER UNSPEC SLEEP APNEA [G47.30] Dysmetabolic syndrome X [E88.81] 09/11/2011 Fibromyalgia [LGY8338] Embolism and thrombosis (HCC) [I74.9] INVALID FOR* GOITER NOS [E04.9] REFLUX ESOPHAGITIS [K21.0] NAUSEA ALONE [R11.0] ACUTE GASTRITIS W/O HEMORRHAGE [K29.00] INVALID FOR* CONSTIPATION NOS [K59.00] INVALID FOR* More... 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 Obstructive Sleep Apnea [G47.33] INVALID FOR* More... Hypothyroidism [E03.9] INVALID FOR* Exostosis of unspecified site [M89.8X9] INVALID FOR*11/27/2017 Other hammer toe (acquired) [M20.40] INVALID FOR*11/27/2017 Hx of hysterectomy [Z90.710] INVALID FOR* More... Allergic rhinitis [J30.9] More... 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] INVALID FOR* Environmental allergies [Z91.09] INVALID FOR*11/27/2017 Morbid obesity due to excess calories (HCC) [E6* Chronic kidney disease, stage III (moderate) [N*INVALID FOR*11/27/2017 Essential hypertension [I10] INVALID FOR* Nephrolithiasis [N20.0] INVALID FOR* Vitamin D deficiency [E55.9] INVALID FOR* Rheumatoid arthritis (HCC) [M06.9] INVALID FOR* Bipolar disorder, unspecified [F31.9] INVALID FOR* Alopecia, unspecified [L65.9] INVALID FOR*11/27/2017 Personal history of pulmonary embolism [Z86.711]INVALID FOR* Irritable bowel syndrome [K58.9] INVALID FOR* Neuropathy [G62.9] INVALID FOR* Incisional hernia [K43.2] INVALID FOR* Polycythemia, secondary [D75.1] INVALID FOR* Anticoagulated on Coumadin [Z51.81, Z79.01] INVALID FOR* STACY treated with BiPAP [G47.33] More... Type 2 DM with CKD stage 3 and hypertension (HC*INVALID FOR* Polypharmacy [Z79.899] INVALID FOR* Noncompliance with treatment [Z91.19] INVALID FOR* CKD (chronic kidney disease) stage 4, GFR 15-29*INVALID FOR*08/26/2017 Nonallergic rhinitis [J31.0] INVALID FOR* Encounter Status:Closed by YING COBBUSER on 08/30/18 PROGRESS Observed: 03/26/2018 Status: COMPLETED Source: [place] 4:30 PM [facility] [place] REPOSITORY HNO ID: [id number] Author: Sheeba King RN Service: (none) Author Type: (none) Type: Progress Notes Filed: 03/26/2018 4:30 PM Note Text: per written order by dr scott patient is to increase to 7.5mg Tues,Thurs,Sat and 5mg all other days PATIENT NOTIFIED OF INFORMATION PROGRESS Observed: 03/26/2018 Status: COMPLETED Source: [place] 2:20 PM [facility] REPOSITORY HNO ID: [id number] Author: Sheeba King RN Service: (none) Author Type: (none) Type: Progress Notes Filed: 03/26/2018 2:22 PM Note Text: patient had inr completed at [facility] patients inr is 2.6 (patients inr range is 3.0-4.0) patient is currently taking 7.5mg Tues,Thurs and 5mg all other day patients last dose change was on 03/05/18 due to a low level of 1.5 (dose at that time was 5mg daily) patient has had no changes in medication except for coumadin and no missed doses and no change in diet Advised patient that they would be contacted regarding medication dose and when to follow up after information is reviewed by provider. After provider review please contact the patient with information and schedule follow up appointment with coumadin clinic. FYI - patient has been scheduled for a 1 week follow up inr on 04/02/18 COMPREHENSIVE METABOLIC Collected: 03/11/2018 Status: F Source: RAÚL [place]OW[place] 4:34 PM [facility] REPOSITORY TYPE CODE TESTS RESULT OUT OF RANGE REFERENCE UNITS LAB L501.0100 74-106 mg/dL High GLU 182 Result Comment: Fasting Glucose result greater than or equal to 126 mg/dL suggests DIABETES MELLITUS per A.D.A. criteria. Please note revised GLUCOSE reference range effective 2017. LAB L501.1000 7-18 mg/dL High BUN 25 LAB L501.1100 0.55-1.02 mg/dL High CREAT,SERUM 1.45 Result Comment: The validity of the calculated GFR AND GFRAA in patients over 70 years has not been determined. Clinical correlation is essential. LAB L501.1110 >60 mL/min Low EST GFR 41 Result Comment: Non- GFR Calc LAB L501.1115 >60 mL/min Low EST GFR - AA 49 Result Comment: GFR Calc LAB L501.1300 10-20 RATIO Normal BUN/CRE 17.2 LAB L501.1500 6.4-8.2 g/dL T Normal PROT 7.8 LAB L501.1800 3.2-5.0 g/dL Normal ALB 3.7 LAB L501.1950 2.2-4.2 g/dL Normal GLOB 4.1 LAB L501.2000 0.9-2.4 RATIO Normal A/G 0.9 LAB L501.2200 8.5-10.1 mg/dL CA Normal 9.8 LAB L501.4100 15-37 U/L High AST 41 LAB L501.4305 45-117 U/L High ALK P 176 LAB L501.4405 13-56 U/L High ALT 65 LAB L501.4600 0.20-1.00 mg/dL T Normal BILI 0.40 LAB L501.5300 136-145 mmol/L NA Normal 139 LAB L501.5600 3.5-5.1 mmol/L K Normal 3.8 LAB L501.5900 98-107 mmol/L CL Normal 105 LAB L501.6100 21.0-32.0 mmol/L Normal CO2 25.0 LAB L501.6200 5-15 Normal GAP 9 Performed By: #### L500.4050 #### [facility] [address] [place], [place], [id number] CBC W/DIFF, AUTOMATED Collected: 03/11/2018 Status: F Source: RAÚL 4:34 PM [facility] REPOSITORY TYPE CODE TESTS RESULT OUT OF RANGE REFERENCE UNITS LAB L100.1000 4.4-11.0 K/mm3 Normal WBC 5.8 LAB L100.1200 4.2-5.4 M/mm3 Normal RBC 4.51 LAB L100.1300 12.0-15.0 g/dl High HGB 15.1 LAB L100.1400 37-47 % Normal HCT 45.5 LAB L100.1500 81-99 fL High MCV 100.9 LAB L100.1600 27.0-32.0 pg High MCH 33.5 LAB L100.1700 32-36 g/gl Normal MCHC 33.2 LAB L100.1810 11.6-14.6 % Normal RDW CV 13.5 LAB L100.1820 35.1-43.9 fl High RDW SD 49.4 LAB L100.1900 150-450 K/mm3 Normal PLT 157 LAB L100.2000 6.2-12.0 fl Normal MPV 9.7 LAB L100.2100 47-70 % Low NEUT% 46.2 LAB L100.2200 19-41 % Normal LY% 38.6 LAB L100.2300 0-10 % High MONO% 12.2 LAB L100.2400 0-5 % Normal EO% 2.6 LAB L100.2500 0-1 % Normal BASO% 0.2 LAB L100.2550 0.0-0.9 % Normal IM GRAN % 0.200 Result Comment: IG% - Immature Granulocytes (promyelocytes, myelocytes and metamyelocytes) > 1% indicates that a LEFT SHIFT is Present. LAB L100.2620 2.0-7.7 X10 3/uL Normal Absolute Neut 2.7 LAB L100.2720 0.83-4.51 X10 3/ul Normal Absolute Lymph 2.25 Performed By: #### L100.0100 #### [facility] [address] [place] [address], [address] PROGRESS Observed: 03/05/2018 Status: COMPLETED Source: [place] 2:17 PM [facility] REPOSITORY O ID: [id number] Author: Sheeba King RN Service: (none) Author Type: (none) Type: Progress Notes Filed: 03/05/2018 2:17 PM Note Text: per written order by dr scott patient is to take 7.5mg Tues.Thurs and 5mg all other days PATIENT NOTIFIED OF INFORMATION PROGRESS Observed: 03/05/2018 Status: COMPLETED Source: [place] 1:57 PM [facility] REPOS[facility] HNO ID: [id number] Author: Sheeba King RN Service: (none) Author Type: (none) Type: Progress Notes Filed: 03/05/2018 1:59 PM Note Text: patient had inr completed at [facility] patients inr is 1.5 (patients inr range is 3.0-4.0) patient is currently taking 5mg daily patients last dose change was on 02/27/18 due to a low level of 0.9 (patient was only doing lovenox injections) patient has had no changes in medication except for coumadin/lovenox and no change in diet Advised patient that they would be contacted regarding medication dose and when to follow up after information is reviewed by provider. After provider review please contact the patient with information and schedule follow up appointment with coumadin clinic. FYI - patient has been scheduled for a 1 week inr follow up on 03/12/18 OT GENERAL EVALUATION Observed: 03/01/2018 Status: F Source: [place] 7:41 AM [facility] REPOSITORY [facility] [address] [place] [address]. [address] [place] [address] Fax REHABILITATION SERVICES INITIAL EVALUATION MR#: [id number] Acct: [id number] Name: DEBORA MEYERS Rep #: [id number] : 1965 52 From: Sheeba REYNOLDS CHT Referring Dr.: Doyle Lorenzo DO Status: REG RCR Insurance: MEDICARE PART A B Eval Date: SELF PAY INSURANCE Patient's Visit Information DEBORA MEYERS is a 52 year old F, referred to Occupational Therapy by Doyle Lorenzo DO, with a diagnosis of left Carpal tunnel syndrome. Date of Evaluation: 02/26/18 Occupational Therapist: KENY Seo/MERON Redmond - Subjective Subjective: Pt states she had left CTR on February 11. pt attends session with left cock-up brace on- pt states instructed her to wear brace at night and when out of the house. pt is right handed. pt states following sx she has better movement but continues to have nerve pain, tingling and numbness. - Pain left hand 7 Pain Intensity Range: 6, 8 - ROM Forearm: Right/left WNL Wrist: right 50/65 left 25/45 - Strength Cleaning Porter: right 20# left trace Lateral Pinch: right 6# left unable Tripod Pinch: right 6# left unable - Sensation Thumb: right 2.83 left 3.61 Index: right 2.83 left 3.61 Middle: riight 2.83 left 3.61 Ring: right 2.83 left 3.61 Little: right 2.83 left 3.61 - Nine Hole Peg Right: 24.94 Left: 43.35 - Hand/Wrist Evaluation Total Score of Pain AND Functional Sections: 79 - Goals Goal:: pt will demo a left allocations clerk strength of 25# or greater to increase ind. with BADLs adn IADLS by d/c. pt will demo a increase in tripod pinch strength of 4# to increase ind with pinch and FM tasks by d/c Goal:: pt will demo a increase in left wrist ROM by 15 degress to increase pts ind. with BADLS and IADLS by d/c Goal:: pt will report pain no greater than 3/10 with use of left hand with daily occupations by d/c Goal:: pt will demo a decrease in 9-hole peg test by 5 sec. demo increase FMS for buttons, zippers and tying shoes by d/c Goal:: pt will demo understanding of scar mtg by end of 2nd session. - Rehabilitation General Assessment: S/P CTR February 11, 2018. pt demo with decreased functional wrist ROM and the ability to form a composite fist. pt's limited with allocations clerk and pinch strength at this time as well. the limitations are increasing her need of assist with BADLS and IADLS. Rehabilitation Potential: Good - Anticipated Interventions Anticipated Interventions: A/AAROM/PROM, Strengthening, Scar Care, Triggerpoint Release, Desensitization, Sensory Retraining, Modalities, Orthoses - Visit Plan Frequency: 2-3x /Week Duration: 4 Weeks General Plan: OT services 2-3xweek for 4-6 weeks to return pt back to PLOF- Treatment of ROM, PRE and use of desensitization sam. to decrease pts pain and increase functional use of left hand with BADLS and IADLS. TEXT: Thank you for the opportunity to evaluate your patient. For Medicare and Medicare HMO plans, please review the plan of care and approve it. It will need to be FAXED BACK to us at [phone] for Medicare purposes. Please let me know if there are questions or concerns regarding this plan of care. Physician Signature: Date: <Electronically signed by Sheeba REYNOLDS, GUSTAVOT> 03/01/18 0741 CC: Doyle Lorenzo DO; Livia Scott MD MK Signed For Medicare only, by signing this I certify the plan of care. Physicians Signature Date PROGRESS Observed: 02/27/2018 Status: COMPLETED Source: [place] 4:26 PM [facility] REPOSITORY HNO ID: [id number] Author: Sheeba King RN Service: (none) Author Type: (none) Type: Progress Notes Filed: 02/27/2018 4:27 PM Note Text: per written order from dr scott patient is to finish lovenox injections and start 5mg coumadin daily also and recheck as schedule PATIENT NOTIFIED OF INFORMATION PROGRESS Observed: 02/27/2018 Status: COMPLETED Source: [place] 2:54 PM [facility] REPOSITORY HNO ID: [id number] Author: Sheeba King RN Service: (none) Author Type: (none) Type: Progress Notes Filed: 02/27/2018 2:56 PM Note Text: patient had inr completed at [facility] patients inr is 0.9 (patients inr range is 3.0-4.0) patient is currently taking lovenox injections only patients last dose change was on 01/29/18 due to having surgical procedure patient has had changes in medication and no change in diet Advised patient that they would be contacted regarding medication dose and when to follow up after information is reviewed by provider. After provider review please contact the patient with information and schedule follow up appointment with coumadin clinic. FYI - patient has been scheduled for an inr recheck on Sunday (03/05/18) OPERATIVE REPORT Observed: 02/11/2018 Status: F Source: RAÚL 3:35 PM [facility] REPOSITORY [facility] Medical Records Department [address] [place] [address] Operative Report 02/11/18 1531 MR#: [id number] Acct: [id number] Name: DEBORA MEYERS Rep #: [id number] : 1965 52 From: Doyle Lorenzo DO PCP: Livia Scott MD Status: REG [facility] Y Location: [place] [address] Report of Operation Date of Procedure: 02/11/18 Pre-Operative Diagnosis: Severe carpal tunnel syndrome left wrist Post-Operative Diagnosis: Severe carpal tunnel syndrome left wrist Surgery/Procedure Performed:: External neurolysis median nerve left Description of Surgical Findings:: Carpal tunnel syndrome weaving inspector: Andrew Hickman Type of Anesthesia:: Block,Oz Anesthesiologist: Feroz Tineo Estimated Blood Loss (mL): 5 Fluids Replaced: See anesthesia report Description of Procedure: Surgical indications: Yelena is a 52-year-old female that has severe carpal tunnel syndrome diagnosed via EMG nerve conduction velocity. She has elected to undergo the above procedure Procedure description: Yelena was greeted in the preoperative area. Her left upper extremities marked with surgical marker. Preoperative antibiotics were administered. She was then taken or [address] in a stable condition. After adequate anesthesia was obtained and airway was secured the arm was prepped and draped in usual sterile fashion. Surgical timeout was performed surgery was commenced. incision was then made in the palm in line with the third webspace not propagating distal to Adams's line. This is approximately 2 cm in length. Sharp dissection was then carried through the palmar fascia and the flexor retinaculum was identified. The flexor retinaculum was then transected in line with median nerve. Median nerve was easily identified beneath the flexor retinaculum and protected as the flexor retinaculum was transected to the antebrachial fascia. The remaining portion of the retinaculum was then transected distally to the palmar fat pad. The nerve was then visualized and free of any compression. There is also no abnormalities of the nerve identified with visual inspection. Once this was complete the skin was closed with 3-0 nylon. A well-padded on her dressings applied secured with a Ortho-Glass splint. Patient taught procedure well without complication was taken to recovery room in stable condition. - Admit VTE Documentation VTE Present on Admission: Yes VTE Mechan Device Prophylaxis: SCD's, Knee High INDIO Hose VTE Pharm Prophylaxis ordered?: No Reason prophylaxis not ordered:: Procedure Not Indicated 02/11/18 1535 <Electronically signed by Doyle Lorenzo DO> Date Doyle Lorenzo DO CC: Doyle Lorenzo DO; Livia Scott MD Signed DISCHARGE INSTRUCTION Observed: 02/11/2018 Status: F Source: [place] 3:31 PM [facility] REPOSITORY [facility] Medical Records Department [address] [place] [address] Instructions for Home/Discharge Instructions 02/11/18 1526 MR#: [id number] Acct: [id number] Name: DEBORA MEYERS Rep #: [id number] : 1965 52 From: Doyle Lorenzo DO PCP: Livia Scott MD Status: REG [facility] Discharge Diet: No Restrictions Discharge Activity: May Not Drive Ice area for (Minutes): 20 Keep extremity elevated above heart level: Left Arm Call your doctor if your incision/area has: Continuous Slow Oozing, Sudden Increased Bleeding, Increased Pain/ Swelling, Increased Redness, Foul Smelling Discharge Call your doctor if you observe: Fever of 101 or Higher, Coldness, Increased Pain, Numbness or Tingling, Change in Color Suture Line Care: Avoid Pulling/Pushing Remove Dressing in (days):: 7 Cleanse incision/area with: Keep Dressing Clean AND Dry - until dressing removed. then may get wet in shower, do not submerge Allergies/Adverse Reactions: Allergies hydrogen peroxide Allergy (Verified 02/04/18 15:07) Rash Sulfa (Sulfonamide Antibiotics) Allergy (Verified 02/04/18 15:07) Hives iodine Adverse Reaction (Verified 02/04/18 15:07) burning (topical) vitamin k Allergy (Uncoded 04/08/17 09:57) Swelling/burning around injection site Medications to take at Discharge Albuterol Sulfate [Proair Hfa] 2 puff INHALATION Q4H PRN PRN 06/30/14 Dicyclomine HCl [Bentyl] 10 mg PO 4X/DAY 06/30/14 Hydroxychloroquine [Plaquenil] 200 mg PO DAILY 06/30/14 Leflunomide 20 mg PO DAILY 06/30/14 Levothyroxine [Synthroid] 100 mcg PO DAILY 06/30/14 Omeprazole [Prilosec] 40 mg PO DAILY 06/30/14 Ondansetron HCl 4 mg PO Q8H PRN PRN 06/30/14 Simvastatin [Zocor] 10 mg PO QHS 06/30/14 Sucralfate [Carafate] 10 ml PO ACHS PRN 06/30/14 Quetiapine Fumarate [Seroquel] 25 mg PO BID 08/24/14 Lactobacillus Combination No.4 [Probiotic] 2 each PO QHS 10/29/14 Quetiapine Fumarate [Seroquel XR] 150 mg PO QHS 04/17/16 Verapamil [Calan] 40 mg PO TID 04/17/16 Morphine Pain Pump 05/23/16 Vitamin B Complex 1 each PO DAILY 05/23/16 Vitamin E 400 unit PO DAILY 05/23/16 Warfarin [Coumadin] 5 mg PO SUMOWETHFR 04/08/17 Warfarin [Coumadin] 7.5 mg PO TUSA 04/08/17 Albuterol Aerosols [Ventolin Aerosols] 2.5 mg INHALATION Q6HWA.RT 04/12/17 Clonazepam [Klonopin] 0.5 mg PO QHS #10 tablet 04/12/17 Gabapentin [Neurontin] 300 mg PO TIDCM #90 capsule 04/12/17 Lisinopril [Zestril] 2.5 mg PO DAILY tablet 04/12/17 Metoprolol Tartrate [Lopressor (beta ancelmo)] 25 mg PO BID tablet 04/12/17 Oxycodone [Oxyir] 5 mg PO Q6H PRN PRN #10 tablet 04/12/17 Fluticasone/Vilanterol [Breo Ellipta 200-25 Mcg INH] 1 each IH DAILY 02/04/18 Gabapentin [Gralise] 600 mg PO QHS 02/04/18 Insulin Aspart [Novolog Flexpen] 20 units SC TIDCM 02/04/18 Insulin Glargine [Lantus SoloStar Pen] 60 units SC QHS 02/04/18 Hydrocodone Bitart/Apap 5-325 [Hitchita 5/325] 1 - 2 tablet PO Q6H PRN PRN 7 Days #40 tablet 02/11/18 The following prescriptions were given: Hydrocodone Bitart/Apap 5-325 [Hitchita 5/325] 1 - 2 tablet PO Q6H PRN PRN 7 Days #40 tablet PRN Reason: Mild-Moderate (pain scale 1-5) Please Follow Up With: Eugene Juárez PA-C When: as scheduled 02/11/18 1531 <Electronically signed by Doyle Lorenzo DO> Date Doyle Lorenzo DO CC: Livia Scott MD PROTIME W/INR Collected: 02/11/2018 Status: F Source: RAÚL [place] 2:05 PM [facility] REPOSITORY TYPE CODE TESTS RESULT OUT OF RANGE REFERENCE UNITS LAB L9200.1001 11.9-14.4 SEC Normal PROTIME ISTAT 12.4 Result Comment: Reference Range 11.9 - 14.4 LAB L9200.2000 Normal INR ISTAT 1.00 Result Comment: Critical Value > 3.5 Performed By: #### L9200.0000 #### [facility] Point of Care [address] [place] [address] BEDSIDE GLUCOSE Collected: 02/11/2018 Status: F Source: RAÚL 1:29 PM [facility] REPOSITORY TYPE CODE TESTS RESULT OUT OF REFERENCE UNITS RANGE LAB L501.080 70-110 mg/dL High BEDSIDE GLU 208 Result Comment: MANAGEMENT OF PATIENT CARE PER NURSING PROTOCOL Performed By: #### L501.080 #### [facility] Point of Care [address] [place] [address] PROGRESS Observed: 01/29/2018 Status: COMPLETED Source: [place] 4:27 PM [facility] [place] REPOSITORY HNO ID: [id number] Author: Sheeba King RN Service: (none) Author Type: (none) Type: Progress Notes Filed: 01/29/2018 4:27 PM Note Text: per written order by dr scott she agrees with below, encounter is being closed PROGRESS Observed: 01/29/2018 Status: COMPLETED Source: [place] 3:09 PM [facility] REPOSITORY HNO ID: [id number] Author: Sheeba King RN Service: (none) Author Type: (none) Type: Progress Notes Filed: 01/29/2018 3:11 PM Note Text: patient had inr completed at [facility] patients inr is 1.3 (patients inr range is 3.0-4.0) patient is currently taking 7.5mg Tues,Th and 5mg all other days patients last dose change was on 11/13/17 due to a high level of 4.0 (dose at that time was 7.5mg ,Sun and 5mg all other days) patient has had no changes in medication and no change in diet FYI - patient was off coumadin for 5 days and just restarted coumadin on (01/24/18) Advised patient to continue on the same dose(s) and that they would only be contacted regarding dosage and follow up instructions after review with provider, if a change is needed. Written instructions given and patient verbalized understanding. Presently scheduled in 1 week (02/05/18) for follow up INR. PROGRESS Observed: 01/22/2018 Status: COMPLETED Source: [place] 3:13 PM [facility] REPOSITORY HNO ID: [id number] Author: Amrit Mora Service: (none) Author Type: Physician Type: Progress Notes Filed: 01/23/2018 10:00 PM Note Text: This is a consultation requested by Dr. Scott for an allergy and immunology evaluation. My final recommendations will be communicated back to the requesting physician by way of shared medical record or letter to requesting physician via US mail. Debora Meyers is a 52 year old female who has symptoms of itchy eyes, watery eyes, clear rhinorrhea, nasal congestion, sneezing, postnasal drip. Associated symptoms include cough . These symptoms are perennial. Current triggers include exposure to dog, dust and mold. The patient has been suffering from these symptoms for several year(s). The patient takes claritin in the morning, zyrtec in the evening and uses fluticasone nasal spray as needed only due to epistaxis/nasal irritation associated w/regular use of the nasal spray. Takes Mucinex sinus with relief of CARRERA. On SCIT through [facility] for 15-20 years w/improvement. No systemic reactions. Discontinued approximately 1 year ago due to cost concerns. 2 course of antibiotics for sinusitis in the past year. Denies a history of nasal polyposis. History of NSD. No prior nasal or sinus surgery. History of asthma. Complains of intermittent cough and wheezing. Daily wheezing for the past week described as rattling in chest. No chest tightness. Nocturnal awakenings every night. Previously evaluated by pulmonary. Previously on Symbicort with relief- discontinued due to expense. . No recent albuterol use-Albuterol does not seem to help with the cough. On lisinopril for 1 year. She denies noticing a significant increase in cough since starting lisinopril.. Denies steroids or ER visits for asthma. GERD sxs well controlled by prilosec, carafate prn, and zofran prn. C/o lip swelling with fresh blueberries and fresh pineapple. Intermittent blotchy facial rash. She has a history of obstructive sleep apnea for which she is on BiPAP. REVIEW OF SYSTEMS: SINUSITIS: The patient does not suffer from frequent sinopulmonary infections. ASTHMA: See MENOMINEE ECZEMA: The patient has no history of eczema. URTICARIA:The patient does not have a history of urticaria and/or angioedema. GERD: The patient does have a history of GERD. INSECT STING: The patient does not have a history of systemic reaction to insect sting. FOOD ALLERGY:See MENOMINEE. LATEX: The patient does not have a history of adverse reaction to latex. All other review of systems negative except for those listed above. PAST MEDICAL HISTORY Diagnosis Date - Allergic rhinitis used to receive allergy shots from Dr. Brown - Alopecia, unspecified 08/29/2012 - Anticoagulated on Coumadin INR goal 3.0 to 4.0 - Asthma - Benign neoplasm of stomach - Bipolar disorder, unspecified 08/29/2012 - Diabetes mellitus type 2, controlled, without complications (HCC) 08/12/2007 In records from treatment after elevated sugars in 2001 during hospital stay; no longer on any meds and sugars have been fine--either normal or just in impaired fasting glucose level - Environmental allergies 01/17/2012 - Exostosis of unspecified site 09/27/2010 - Fibromyalgia - Goiter, unspecified - Hypothyroidism 10/28/2009 - Nausea alone - Obesity - STACY treated with BiPAP [facility] supplier - Other diseases of lung, not elsewhere classified - Other hammer toe (acquired) 09/27/2010 - RA (rheumatoid arthritis) (HCC) - 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 also elevated BMI . RECOMMENDATIONS are 1.weight loss.2. not seen significant sleep apnea however absense or REM sleep sleep apnea may be understimated.Extrinsic factors leading to excessive daytime somnolence such as mood disturbances and or medication effect may be a factor MEDICATIONS: Cetirizine (ZYRTEC) 10 mg cap Take by mouth daily at bedtime. gabapentin (NEURONTIN) 300 mg capsule Take 1 in the morning, 1 at lunch, 3 at bedtime daily furosemide (LASIX) 40 mg tablet Take 1 tablet by mouth once daily. May take one additional pill, PRN for increased swelling insulin glargine (LANTUS SOLOSTAR) 100 unit/mL (3 mL) inpn Inject 45 units subcutaneously once daily in the evening insulin glargine (LANTUS SOLOSTAR) 100 unit/mL (3 mL) inpn Inject 45 Units subcutaneously daily at bedtime. diphenoxylate-atropine (LOMOTIL) 2.5-0.025 mg per tablet Take 1 tablet by mouth before meals and at bedtime for 30 days. as needed Benzonatate 200 mg capsule Take 1 capsule by mouth three times daily as needed. triamcinolone acetonide (KENALOG) 0.1 % cream Apply 1 application to affected area three times daily as needed (itchy rash/psoriasis on hands). Apply sparingly clonazePAM (KLONOPIN) 1 mg tablet Take 0.5-1 tablets by mouth daily at bedtime for 90 days. insulin needles, DISPOSABLE, (BD INSULIN PEN NEEDLE UF) 31 gauge x 5/16 ndle Use with insulin pens 4 times daily as directed insulin needles, DISPOSABLE, (UNIFINE PENTIPS) 31 gauge x 5/16 ndle Inject 1 Each subcutaneously four times daily. insulin aspart (NOVOLOG FLEXPEN) 100 unit/mL inpn Inject 7 units 3 times daily with meals and as directed for high sugars lisinopril 2.5 mg tablet TAKE 1 TABLET BY MOUTH EVERY DAY cholecalciferol (VITAMIN D3) 5,000 unit tab Take 1 tablet by mouth once daily. warfarin (COUMADIN) 7.5 mg tablet Take 1 tablet by mouth daily as directed. warfarin (COUMADIN) 5 mg tablet Take 1 tablet by mouth once daily. SHENG - 7.5mg , sun and 5mg all other days or as directed rOPINIRole (REQUIP) 0.5 mg tablet Take 1 tablet by mouth three times daily. enoxaparin (LOVENOX) 40 mg/0.4 mL syrg 40 mg subcutaneous every 12 hours starting August 25 in the morning; take only the morning dose August 27; do not take August 28 (day of procedure); resume 40 mg every 12 hours starting evening of August 29; continue until INR therapeutic multivitamin with minerals (HAIR,SKIN AND NAILS) tablet Take 1 tablet by mouth three times daily. alpha tocopheryl acetate (VITAMIN E) 400 unit capsule Take 2 capsules by mouth once daily. ondansetron (ZOFRAN) 4 mg tablet Take 1 tablet by mouth every 8 hours as needed for Nausea/Vomiting. Omeprazole 40 mg capsule Take 1 capsule by mouth once daily. sucralfate (CARAFATE) 100 mg/mL suspension Take 10 mL by mouth four times daily as needed. As directed (usually before meals and bedtime as needed) simvastatin (ZOCOR) 10 mg tablet Take 1 tablet by mouth daily at bedtime. COMPOUNDED PRESCRIPTION SHOWER CHAIR WITH BACK DX M06.9 I74.9 COMPOUNDED PRESCRIPTION SUCTION STYLE GRAB BAR FOR SHOWER WALL INSTALLATION DX M 06.9 I 74.9 verapamil (CALAN, ISOPTIN) 40 mg tablet Take 1 tablet by mouth three times daily. albuterol HFA (PROAIR HFA) 90 mcg/actuation inhaler Inhale 2 Puffs as instructed every 4 hours as needed for Wheezing/Shortness of Breath. loratadine (CLARITIN) 10 mg tablet Take 1 tablet by mouth once daily. dicyclomine (BENTYL) 10 mg capsule Take 1 capsule by mouth four times daily as needed (cramping pains and urgency with bowels). oxyCODONE-acetaminophen (PERCOCET) 5-325 mg tablet Take 1 tablet by mouth every 4 hours as needed. colesevelam (WELCHOL) 625 mg tablet Take 1-2 tablets by mouth twice daily with meals. as directed for possible bile gastritis Patient taking 1 in am and 1 in evening COUMADIN 1 mg tablet take 5mg daily except for Sunday, take 7.5 mg on Sunday or as directedDO NOT SUBSITUTE WITH GENERIC. QUEtiapine (SEROQUEL) 25 mg tablet Take 1 tablet by mouth twice daily. spironolactone (ALDACTONE) 25 mg tablet Take 1 tablets by mouth once daily in the AM fluticasone (ALLERGY RELIEF, FLUTICASONE,) 50 mcg/actuation nasal spray Use 2 Sprays in each nostril once daily as needed. topiramate (TOPAMAX) 50 mg tablet Take 1 tablet by mouth twice daily. albuterol (PROVENTIL) 2.5 mg /3 mL (0.083 %) nebulizer solution Use 3 mL via nebulizer every 6 hours as needed. levothyroxine (LEVOXYL) 100 mcg tablet Take 1 tablet by mouth daily before breakfast. Blood Pressure Test Kit-Wrist kit Use to check blood pressure once daily as directed DX:I10 hydroxychloroquine (PLAQUENIL) 200 mg tablet Take 1 tablet by mouth once daily. blood sugar diagnostic (TRUE METRIX GLUCOSE TEST STRIP) test strip Test blood sugar 4 x daily. Dx: E11.22. Insulin use: Yes budesonide-formoterol (SYMBICORT) 160-4.5 mcg/actuation inhaler Inhale 2 Puffs as instructed twice daily. tiZANidine (ZANAFLEX) 4 mg tablet Take 1 tablet by mouth every 8 hours as needed (muscle spasms). Dr Wetzel CALCIUM CARB/MAGNESIUM OX,CARB (YASMINE-MAG ORAL) Take by mouth. nystatin (MYCOSTATIN) cream Apply 1 application to affected area twice daily. As needed escitalopram oxalate (LEXAPRO) 20 mg tablet Take 1 tablet by mouth once daily. nystatin (MYCOSTATIN) 100,000 unit/mL suspension 1 tsp swish and swallow until gone, 4 times daily COMPOUNDED PRESCRIPTION Morphine 15 mg per pump filled every [address] Wetzel leflunomide (ARAVA) 20 mg tablet Take 1 tablet by mouth once daily. Lactobacillus acidophilus (PROBIOTIC) 10 billion cell cap Take 2 tablets by mouth daily at bedtime. vitamin b complex (B COMPLETE) tab Take 1 tablet by mouth once daily. COMPOUNDED PRESCRIPTION Decrease BiPAP settings to 11/5 cmH2O. Diagnosis G47.33 Miscellaneous Medical Supply [facility] CUSTOM JOBST KNEE HI COMPRESSION STOCKING 30-40MM/HG. Dispense 2 pair Diagnosis:(I87.2) Venous insufficiency of both lower extremities; (R60.9) Edema ketoconazole (NIZORAL) 2 % cream Apply 1 application to affected area once daily. as needed to corners of lips and other rash as directed [place]-3 Fatty Acids-Vitamin E (FISH OIL) 1,000 mg cap Take 1 capsule by mouth three times daily. traZODONE 100 mg ORAL tablet Take 2 tablets by mouth daily at bedtime. (Dr. Ruano--noted that 1 pill not adequate) ALLERGIES: Allergies As of Date: 01/22/2018 Allergen Noted Reaction VITAMIN K 07/14/2005 Swelling ENVIRONMENTAL [OTHER] 07/14/2005 Rash and Cough CHOLESTYRAMINE 03/31/2013 Other: See Comments IBUPROFEN 06/29/2009 Diarrhea MACROBID [NITROFURANTOIN MONOHYD/*12/06/2010 Rash SULFA (SULFONAMIDE ANTIBIOTICS) 02/05/2013 Rash TYLENOL [ACETAMINOPHEN] 03/17/2014 Vomiting PEROXIDE [OTHER] 07/14/2005 Intolerance Fully Assessed 01/22/2018 PAST SURGICAL HISTORY Procedure Laterality Date - COLONOSCOP W/ OR W/O BRS SPEC 03-06-13 Colonoscopy - EGD W/O OR W/BRUSH/WASH 02/25/2007 EGD - EGD W/O OR W/BRUSH/WASH 11/03/2011 EGD - PAST SURGICAL HISTORY OF [place] except cervix was left in; complicated with wound infection; [facility] - PAST SURGICAL HISTORY OF fundoplication May 1991 - PAST SURGICAL HISTORY OF right foot surgery on achilles tendon - PAST SURGICAL HISTORY OF 09/16/13 bone spur removed from right foot - PAST SURGICAL HISTORY OF 08/2014 Intrathecal pump implant for chronic back pain ([facility]) - PULMONARY FUNCTION TEST 05/04/05 - REMOVAL ADENOIDS,PRIMARY,<12 Y/O Adenoidectomy - REMOVAL GALLBLADDER 1990 Cholecystectomy - REMOVAL OF TONSILS,<12 Y/O Tonsillectomy - TOTAL ABDOM HYSTERECTOMY 2008 polycystic ovaries - UVULECTOMY EXCISION OF UVULA 2004 FAMILY HISTORY: Adopted, patient does not know about biological parents. Allergic rhinitis:no. Asthma: no. Eczema: no. Cystic fibrosis: no. Immunodeficiency: no. SOCIAL HISTORY: Marital status: Children: none Occupation: not working Smoking: life-long non-smoker ENVIRONMENTAL HISTORY: Lives in a apartment Age of home: 62 years Heating: gas and hot water Woodburning fireplace in the home: no Air conditioning: wall air conditioning Basement: Dry basement Martina: [id number] carpeting Dust mite controls: Dust mite controls are already in place. Pets in the home: 1 bird Outdoor animals: There are no outdoor animals Tobacco smoke: No exposure in the home. Physical Exam: GENERAL APPEARANCE:Well appearing, alert, in no acute distress, well-hydrated, well nourished. Obese HEENT: NCAT. EYES: conjunctiva and sclera normal. EARS: External ears normal. Canals clear. TM's normal. NOSE/SINUS: Nares normal. Septum midline. Mucosa normal. No drainage or sinus tenderness. THROAT: no erythema NECK:neck supple, no adenopathy HEART:RRR with normal S1 and S2 ,no murmurs, no gallops, no rubs LUNGS: clear to auscultation bilaterally, no wheezes, rales or rhonchi ABDOMEN:soft, nontender, nondistended, without organomegaly or palpable masses EXTREMITIES:Extremities normal, No deformities, No skin discoloration and No edema SKIN: Skin color, texture, turgor normal. No rashes or lesions. ALLERGY SKIN TESTS: Negative to inhalant allergens on both prick and intradermal testing. Negative to blueberry and pineapple. ASSESSMENT/PLAN: 1.) Nonallergic Rhinitis Reassured patient that she does not have IgE?mediated inhalant allergies and, therefore, treatment with subcutaneous allergy immunotherapy is not indicated. She has been using improper technique with fluticasone nasal spray. Proper technique was reviewed with the patient. Recommended that she use fluticasone nasal spray 1-2 sprays each nostril once daily on a regular basis. She may take an antihistamine such as Claritin 10 mg or Zyrtec 10 mg once daily as needed for itching, sneezing or runny nose. She was instructed to contact me in 1-2 months with an update. Depending on clinical course, may consider adding an intranasal antihistamine or change from fluticasone nasal spray to a different intranasal corticosteroid at that time. 2.) Mild persistent asthma Breo Ellipta 200?25 one inhalation once daily was prescribed to replace Symbicort since Symbicort has become cost prohibitive. Proper use was reviewed with the patient. She was instructed to rinse her mouth out after use. Use albuterol hfa inhaler (Proventil, Ventolin, Proair) with spacer 2 puffs every four hours as needed for cough, wheezing, chest tightness or shortness of breath. May also use 2 puffs 15-20 minutes pre-exercise. Pneumovax is up-to-date. She should continue to receive an annual influenza vaccine. 3.) Discussed medication dosage, usage, side effects, and goals of treatment in detail. 4.) Patient instructed to contact the office with an update in 1-2 months - patient will return sooner should new symptoms or problems arise. Amrit Mora MD INHALANT 40 PERCUTANEOUS AND INTRADERMAL TESTING/ Mean Wheal AND Flare Diameter (mm) Patient has been identified by name and date of : Yes . Skin test applied by : Dyan Pizarro RN Interpreted By: Amrit Mora M.D. * Clinical significant reactions are regarded as a wheal diameter greater than or equal to 3 mm with a flare diameter greater or equal to 6mm. ALLERGENS 1. Negative Control: 50%Glycerin/50%Cocas P: W = 0 mm F = 0 mm 2. Cat Hair 10,000 BAU/ml P: W = 0 mm F = 0 mm 3. Dog Epithelial 1:20 P: W = 0 mm F = 0 mm 4. Cockroach Mix 1:20 P: W = 0 mm F = 0 mm 5. Mite Df 10,000 AU/ml P: W = 0 mm F = 0 mm 6. Mite Dp 10,000AU/ml P: W = 0 mm F = 0 mm 7. Alternaria Alternata 1:10 P: W = 0 mm F = 0 mm 8. Aspergillus Fumigatus 1:20 P: W = 0 mm F = 0 mm 9. Cladosporium sphearospermum 1:20 P: W = 0 mm F = 0 mm 10. Epicoccum Nigrum 1:10 P: W = 0 mm F = 0 mm 11. Fusarium Solani 1:40 P: W = 0 mm F = 0 mm 12. Bipolaris Sorokiniana 1:20 P: W = 0 mm F = 0 mm 13. Penicillium Mix 1:20 P: W = 0 mm F = 0 mm 14. Ken, White 1:20 P: W = 0 mm F = 0 mm 15. Beech, Latvian 1:20 P: W = 0 mm F = 0 mm 16. Birch Mix 1:20 P: W = 0 mm F = 0 mm 17. Maple Mix 1:20 P: W = 0 mm F = 0 mm 18. [place] ,Eastern 1:20 P: W = 0 mm F = 0 mm 19. Elm, Latvian 1:20 P: W = 0 mm F = 0 mm 20. [place], Shagbark 1:20 P: W = 0 mm F = 0 mm 21. [place] Tree, Red 1:20 P: W = 0 mm F = 0 mm 22. [place], Black 1:20 P: W = 0 mm F = 0 mm 23. [place], Latvian/Eastern 1:20 P: W = 0 mm F = 0 mm 24. [place] Pollen, Black 1:20 P: W = 0 mm F = 0 mm 25. [place], Black 1:20 P: W = 0 mm F = 0 mm 26. [place] Grass 10,000 BAU/ml P : W = 0 mm F = 0 mm 27. [place], Blue/Nisa 100,000 BAU/ml P: W = 0 mm F = 0 mm 28. [place]escue, [place] 100,000 BAU/ml P: W = 0 mm F = 0 mm 29. Dorian Grass 1:20 P: W = 0 mm F = 0 mm 30. Orchard Grass 100,000 BAU/ml P: W = 0 mm F = 0 mm 31. Perennial [place], 100,000 BAU/ml P: W = 0 mm F = 0 mm 32. Silver 100,000 BAU/ml P: W = 0 mm F = 0 mm 33. [place] 1:20 P: W = 0 mm F = 0 mm 34. [place], sheep 1:20 P: W = 0 mm F = 0 mm 35. Plantain, Cymro 1:20 P: W = 0 mm F = 0 mm 36. Lambs Quarters 1:20 P: W = 0 mm F = 0 mm 37. [place] Elder, Burweed 1:20 P: W = 0 mm F = 0 mm 38. Pigweed, Rough 1:20 P: W = 0 mm F = 0 mm 39. Ragweed, Mix 1:20 P: W = 0 mm F = 0 mm 40. HISTAMINE, positive control(Histamine base 6mg/ml) P: W = 3 mm F = 20 mm INTRADERMAL MIXES 1. Negative Control - HSA ID: W = 0 mm F= 0 mm 2. Cat Hair 100 BAU/ml ID: W = 0 mm F= 0 mm 3. Dog Epithelia 1:250 ID: W = 0 mm F= 0 mm 4. Mite DF 30 AU/ml ID: W = 0 mm F= 0 mm 5. Mite DP 30 AU/ml ID: W = 0 mm F= 0 mm 6. Tree Mix, Eastern Tree 1:500 ID: W = 0 mm F= 0 mm 7. Grasses Mix, K-O-T 1000 BAU/ml ID: W = 0 mm F= 0 mm 8. Special Grass Mix 1000 BAU/ml ID: W = 0 mm F= 0 mm 9. Ragweed Mix, 1:500 ID: W = 0 mm F= 0 mm 10. Special Silva Mix 1:500 ID: W = 0 mm F= 0 mm 11. HISTAMINE - (Histamine base 0.1 mg/ml) ID: W = 5 mm F= 18 mm OTHER ALLERGENS: Blueberry: E: W = 0mm F = 0mm Pineapple: E: W = 0mm F = 0mm Patient was instructed on allergy (prick and intradermal) testing. Topical Pramasone cream applied to testing site per Dr. Mora's instruction. Dyan Pizarro RN CNOV Observed: 01/22/2018 Status: COMPLETED Source: [place] 3:00 PM [facility] REPOSITORY Office Visit (ALLMED) DEBORA MEYERS ([id number]) 1965 F Date Time Provider Department 01/22/18 3:00 PM AMRIT MORA During your visit today, we recorded the following information about you: Pulse Respiration Blood pressure Weight 105/minute 20/minute 141/85 120.2 kg Height 1.524 m Dyan Pizarro RN 01/22/2018 3:31 PM Signed Patient c/o sneezing, coughing, watery/itchy eyes, itchy nose, sore throat. Also has hives on and off that will last a few days-has had for couple of years. Takes Claritin in am and Zyrtec in pm, also uses fluticasone nasal spray. Uses albuterol inhaler a few times a year. Uses 2 liters of O2 at night and bipap machine for sleep apnea. Was on allergy IT for years. Amrit Mora MD 01/23/2018 10:00 PM Signed This is a consultation requested by Dr. Scott for an allergy and immunology evaluation. My final recommendations will be communicated back to the requesting physician by way of shared medical record or letter to requesting physician via US mail. Debora Meyers is a 52 year old female who has symptoms of itchy eyes, watery eyes, clear rhinorrhea, nasal congestion, sneezing, postnasal drip. Associated symptoms include cough . These symptoms are perennial. Current triggers include exposure to dog, dust and mold. The patient has been suffering from these symptoms for several year(s). The patient takes claritin in the morning, zyrtec in the evening and uses fluticasone nasal spray as needed only due to epistaxis/nasal irritation associated w/regular use of the nasal spray. Takes Mucinex sinus with relief of CARRERA. On SCIT through [facility] for 15-20 years w/improvement. No systemic reactions. Discontinued approximately 1 year ago due to cost concerns. 2 course of antibiotics for sinusitis in the past year. Denies a history of nasal polyposis. History of NSD. No prior nasal or sinus surgery. History of asthma. Complains of intermittent cough and wheezing. Daily wheezing for the past week described as ANDquot;rattlingANDquot; in chest. No chest tightness. Nocturnal awakenings every night. Previously evaluated by pulmonary. Previously on Symbicort with relief- discontinued due to expense. . No recent albuterol use-Albuterol does not seem to help with the cough. On lisinopril for 1 year. She denies noticing a significant increase in cough since starting lisinopril.. Denies steroids or ER visits for asthma. GERD sxs well controlled by prilosec, carafate prn, and zofran prn. C/o lip swelling with fresh blueberries and fresh pineapple. Intermittent blotchy facial rash. She has a history of obstructive sleep apnea for which she is on BiPAP. REVIEW OF SYSTEMS: SINUSITIS: The patient does not suffer from frequent sinopulmonary infections. ASTHMA: See MENOMINEE ECZEMA: The patient has no history of eczema. URTICARIA:The patient does not have a history of urticaria and/or angioedema. GERD: The patient does have a history of GERD. INSECT STING: The patient does not have a history of systemic reaction to insect sting. FOOD ALLERGY:See MENOMINEE. LATEX: The patient does not have a history of adverse reaction to latex. All other review of systems negative except for those listed above. PAST MEDICAL HISTORY Diagnosis Date - Allergic rhinitis used to receive allergy shots from Dr. Brown - Alopecia, unspecified 08/29/2012 - Anticoagulated on Coumadin INR goal 3.0 to 4.0 - Asthma - Benign neoplasm of stomach - Bipolar disorder, unspecified 08/29/2012 - Diabetes mellitus type 2, controlled, without complications (HCC) 08/12/2007 In records from treatment after elevated sugars in 2001 during hospital stay; no longer on any meds and sugars have been fine--either normal or just in impaired fasting glucose level - Environmental allergies 01/17/2012 - Exostosis of unspecified site 09/27/2010 - Fibromyalgia - Goiter, unspecified - Hypothyroidism 10/28/2009 - Nausea alone - Obesity - STACY treated with BiPAP [facility] supplier - Other diseases of lung, not elsewhere classified - Other hammer toe (acquired) 09/27/2010 - RA (rheumatoid arthritis) (HCC) - 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 also elevated BMI . RECOMMENDATIONS are 1.weight loss.2. not seen significant sleep apnea however absense or REM sleep sleep apnea may be understimated.Extrinsic factors leading to excessive daytime somnolence such as mood disturbances and or medication effect may be a factor MEDICATIONS: Cetirizine (ZYRTEC) 10 mg cap Take by mouth daily at bedtime. gabapentin (NEURONTIN) 300 mg capsule Take 1 in the morning, 1 at lunch, 3 at bedtime daily furosemide (LASIX) 40 mg tablet Take 1 tablet by mouth once daily. May take one additional pill, PRN for increased swelling insulin glargine (LANTUS SOLOSTAR) 100 unit/mL (3 mL) inpn Inject 45 units subcutaneously once daily in the evening insulin glargine (LANTUS SOLOSTAR) 100 unit/mL (3 mL) inpn Inject 45 Units subcutaneously daily at bedtime. diphenoxylate-atropine (LOMOTIL) 2.5-0.025 mg per tablet Take 1 tablet by mouth before meals and at bedtime for 30 days. as needed Benzonatate 200 mg capsule Take 1 capsule by mouth three times daily as needed. triamcinolone acetonide (KENALOG) 0.1 % cream Apply 1 application to affected area three times daily as needed (itchy rash/psoriasis on hands). Apply sparingly clonazePAM (KLONOPIN) 1 mg tablet Take 0.5-1 tablets by mouth daily at bedtime for 90 days. insulin needles, DISPOSABLE, (BD INSULIN PEN NEEDLE UF) 31 gauge x 5/16ANDquot; ndle Use with insulin pens 4 times daily as directed insulin needles, DISPOSABLE, (UNIFINE PENTIPS) 31 gauge x 5/16ANDquot; ndle Inject 1 Each subcutaneously four times daily. insulin aspart (NOVOLOG FLEXPEN) 100 unit/mL inpn Inject 7 units 3 times daily with meals and as directed for high sugars lisinopril 2.5 mg tablet TAKE 1 TABLET BY MOUTH EVERY DAY cholecalciferol (VITAMIN D3) 5,000 unit tab Take 1 tablet by mouth once daily. warfarin (COUMADIN) 7.5 mg tablet Take 1 tablet by mouth daily as directed. warfarin (COUMADIN) 5 mg tablet Take 1 tablet by mouth once daily. SHENG - 7.5mg , sun and 5mg all other days or as directed rOPINIRole (REQUIP) 0.5 mg tablet Take 1 tablet by mouth three times daily. enoxaparin (LOVENOX) 40 mg/0.4 mL syrg 40 mg subcutaneous every 12 hours starting August 25 in the morning; take only the morning dose August 27; do not take August 28 (day of procedure); resume 40 mg every 12 hours starting evening of August 29; continue until INR therapeutic multivitamin with minerals (HAIR,SKIN AND NAILS) tablet Take 1 tablet by mouth three times daily. alpha tocopheryl acetate (VITAMIN E) 400 unit capsule Take 2 capsules by mouth once daily. ondansetron (ZOFRAN) 4 mg tablet Take 1 tablet by mouth every 8 hours as needed for Nausea/Vomiting. Omeprazole 40 mg capsule Take 1 capsule by mouth once daily. sucralfate (CARAFATE) 100 mg/mL suspension Take 10 mL by mouth four times daily as needed. As directed (usually before meals and bedtime as needed) simvastatin (ZOCOR) 10 mg tablet Take 1 tablet by mouth daily at bedtime. COMPOUNDED PRESCRIPTION SHOWER CHAIR WITH BACK DX M06.9 I74.9 COMPOUNDED PRESCRIPTION SUCTION STYLE GRAB BAR FOR SHOWER WALL INSTALLATION DX M 06.9 I 74.9 verapamil (CALAN, ISOPTIN) 40 mg tablet Take 1 tablet by mouth three times daily. albuterol HFA (PROAIR HFA) 90 mcg/actuation inhaler Inhale 2 Puffs as instructed every 4 hours as needed for Wheezing/Shortness of Breath. loratadine (CLARITIN) 10 mg tablet Take 1 tablet by mouth once daily. dicyclomine (BENTYL) 10 mg capsule Take 1 capsule by mouth four times daily as needed (cramping pains and urgency with bowels). oxyCODONE-acetaminophen (PERCOCET) 5-325 mg tablet Take 1 tablet by mouth every 4 hours as needed. colesevelam (WELCHOL) 625 mg tablet Take 1-2 tablets by mouth twice daily with meals. as directed for possible bile gastritis Patient taking 1 in am and 1 in evening COUMADIN 1 mg tablet take 5mg daily except for Sunday, take 7.5 mg on Sunday or as directedDO NOT SUBSITUTE WITH GENERIC. QUEtiapine (SEROQUEL) 25 mg tablet Take 1 tablet by mouth twice daily. spironolactone (ALDACTONE) 25 mg tablet Take 1 tablets by mouth once daily in the AM fluticasone (ALLERGY RELIEF, FLUTICASONE,) 50 mcg/actuation nasal spray Use 2 Sprays in each nostril once daily as needed. topiramate (TOPAMAX) 50 mg tablet Take 1 tablet by mouth twice daily. albuterol (PROVENTIL) 2.5 mg /3 mL (0.083 %) nebulizer solution Use 3 mL via nebulizer every 6 hours as needed. levothyroxine (LEVOXYL) 100 mcg tablet Take 1 tablet by mouth daily before breakfast. Blood Pressure Test Kit-Wrist kit Use to check blood pressure once daily as directed DX:I10 hydroxychloroquine (PLAQUENIL) 200 mg tablet Take 1 tablet by mouth once daily. blood sugar diagnostic (TRUE METRIX GLUCOSE TEST STRIP) test strip Test blood sugar 4 x daily. Dx: E11.22. Insulin use: Yes budesonide-formoterol (SYMBICORT) 160-4.5 mcg/actuation inhaler Inhale 2 Puffs as instructed twice daily. tiZANidine (ZANAFLEX) 4 mg tablet Take 1 tablet by mouth every 8 hours as needed (muscle spasms). Dr Wetzel CALCIUM CARB/MAGNESIUM OX,CARB (YASMINE-MAG ORAL) Take by mouth. nystatin (MYCOSTATIN) cream Apply 1 application to affected area twice daily. As needed escitalopram oxalate (LEXAPRO) 20 mg tablet Take 1 tablet by mouth once daily. nystatin (MYCOSTATIN) 100,000 unit/mL suspension 1 tsp swish and swallow until gone, 4 times daily COMPOUNDED PRESCRIPTION Morphine 15 mg per pump filled every [address] Wetzel leflunomide (ARAVA) 20 mg tablet Take 1 tablet by mouth once daily. Lactobacillus acidophilus (PROBIOTIC) 10 billion cell cap Take 2 tablets by mouth daily at bedtime. vitamin b complex (B COMPLETE) tab Take 1 tablet by mouth once daily. COMPOUNDED PRESCRIPTION Decrease BiPAP settings to 11/5 cmH2O. Diagnosis G47.33 Miscellaneous Medical [facility] CUSTOM JOBST KNEE HI COMPRESSION STOCKING 30-40MM/HG. Dispense 2 pair Diagnosis:(I87.2) Venous insufficiency of both lower extremities; (R60.9) Edema ketoconazole (NIZORAL) 2 % cream Apply 1 application to affected area once daily. as needed to corners of lips and other rash as directed [place]-3 Fatty Acids-Vitamin E (FISH OIL) 1,000 mg cap Take 1 capsule by mouth three times daily. traZODONE 100 mg ORAL tablet Take 2 tablets by mouth daily at bedtime. (Dr. Ruano--noted that 1 pill not adequate) ALLERGIES: Allergies As of Date: 01/22/2018 Allergen Noted Reaction VITAMIN K 07/14/2005 Swelling ENVIRONMENTAL [OTHER] 07/14/2005 Rash and Cough CHOLESTYRAMINE 03/31/2013 Other: See Comments IBUPROFEN 06/29/2009 Diarrhea MACROBID [NITROFURANTOIN MONOHYD/*12/06/2010 Rash SULFA (SULFONAMIDE ANTIBIOTICS) 02/05/2013 Rash TYLENOL [ACETAMINOPHEN] 03/17/2014 Vomiting PEROXIDE [OTHER] 07/14/2005 Intolerance Fully Assessed 01/22/2018 PAST SURGICAL HISTORY Procedure Laterality Date - COLONOSCOP W/ OR W/O [facility] SPEC 03-06-13 Colonoscopy - EGD W/O OR W/BRUSH/WASH 02/25/2007 EGD - EGD W/O OR W/BRUSH/WASH 11/03/2011 EGD - PAST SURGICAL HISTORY OF [place] except cervix was left in; complicated with wound infection; [facility] - PAST SURGICAL HISTORY OF fundoplication May 1991 - PAST SURGICAL HISTORY OF right foot surgery on achilles tendon - PAST SURGICAL HISTORY OF 09/16/13 bone spur removed from right foot - PAST SURGICAL HISTORY OF 08/2014 Intrathecal pump implant for chronic back pain ([facility]) - PULMONARY FUNCTION TEST 05/04/05 - REMOVAL ADENOIDS,PRIMARY,ANDlt;14 Y/O Adenoidectomy - REMOVAL GALLBLADDER 1990 Cholecystectomy - REMOVAL OF TONSILS,ANDlt;14 Y/O Tonsillectomy - TOTAL ABDOM HYSTERECTOMY 2008 polycystic ovaries - UVULECTOMY EXCISION OF UVULA 2004 FAMILY HISTORY: Adopted, patient does not know about biological parents. Allergic rhinitis:no. Asthma: no. Eczema: no. Cystic fibrosis: no. Immunodeficiency: no. SOCIAL HISTORY: Marital status: Children: none Occupation: not working Smoking: life-long non-smoker ENVIRONMENTAL HISTORY: Lives in a apartment Age of home: 62 years Heating: gas and hot water Woodburning fireplace in the home: no Air conditioning: wall air conditioning Basement: Dry basement Martina: [id number] carpeting Dust mite controls: Dust mite controls are already in place. Pets in the home: 1 bird Outdoor animals: There are no outdoor animals Tobacco smoke: No exposure in the home. Physical Exam: GENERAL APPEARANCE:Well appearing, alert, in no acute distress, well-hydrated, well nourished. Obese HEENT: NCAT. EYES: conjunctiva and sclera normal. EARS: External ears normal. Canals clear. TM's normal. NOSE/SINUS: Nares normal. Septum midline. Mucosa normal. No drainage or sinus tenderness. THROAT: no erythema NECK:neck supple, no adenopathy HEART:RRR with normal S1 and S2 ,no murmurs, no gallops, no rubs LUNGS: clear to auscultation bilaterally, no wheezes, rales or rhonchi ABDOMEN:soft, nontender, nondistended, without organomegaly or palpable masses EXTREMITIES:Extremities normal, No deformities, No skin discoloration and No edema SKIN: Skin color, texture, turgor normal. No rashes or lesions. ALLERGY SKIN TESTS: Negative to inhalant allergens on both prick and intradermal testing. Negative to blueberry and pineapple. ASSESSMENT/PLAN: 1.) Nonallergic Rhinitis Reassured patient that she does not have IgE?mediated inhalant allergies and, therefore, treatment with subcutaneous allergy immunotherapy is not indicated. She has been using improper technique with fluticasone nasal spray. Proper technique was reviewed with the patient. Recommended that she use fluticasone nasal spray 1-2 sprays each nostril once daily on a regular basis. She may take an antihistamine such as Claritin 10 mg or Zyrtec 10 mg once daily as needed for itching, sneezing or runny nose. She was instructed to contact me in 1-2 months with an update. Depending on clinical course, may consider adding an intranasal antihistamine or change from fluticasone nasal spray to a different intranasal corticosteroid at that time. 2.) Mild persistent asthma Breo Ellipta 200?25 one inhalation once daily was prescribed to replace Symbicort since Symbicort has become cost prohibitive. Proper use was reviewed with the patient. She was instructed to rinse her mouth out after use. Use albuterol hfa inhaler (Proventil, Ventolin, Proair) with spacer 2 puffs every four hours as needed for cough, wheezing, chest tightness or shortness of breath. May also use 2 puffs 15-20 minutes pre-exercise. Pneumovax is up-to-date. She should continue to receive an annual influenza vaccine. 3.) Discussed medication dosage, usage, side effects, and goals of treatment in detail. 4.) Patient instructed to contact the office with an update in 1-2 months - patient will return sooner should new symptoms or problems arise. Amrit Mora MD INHALANT 40 PERCUTANEOUS ANDamp; INTRADERMAL TESTING/ Mean Wheal ANDamp; Flare Diameter (mm) Patient has been identified by name and date of : Yes . Skin test applied by : Dyan Pizarro RN Interpreted By: Amrit Mora M.D. * Clinical significant reactions are regarded as a wheal diameter greater than or equal to 3 mm with a flare diameter greater or equal to 6mm. ALLERGENS 1. Negative Control: 50%Glycerin/50%Cocas P: W = 0 mm F = 0 mm 2. Cat Hair 10,000 BAU/ml P: W = 0 mm F = 0 mm 3. Dog Epithelial 1:20 P: W = 0 mm F = 0 mm 4. Cockroach Mix 1:20 P: W = 0 mm F = 0 mm 5. Mite Df 10,000 AU/ml P: W = 0 mm F = 0 mm 6. Mite Dp 10,000AU/ml P: W = 0 mm F = 0 mm 7. Alternaria Alternata 1:10 P: W = 0 mm F = 0 mm 8. Aspergillus Fumigatus 1:20 P: W = 0 mm F = 0 mm 9. Cladosporium sphearospermum 1:20 P: W = 0 mm F = 0 mm 10. Epicoccum Nigrum 1:10 P: W = 0 mm F = 0 mm 11. Fusarium Solani 1:40 P: W = 0 mm F = 0 mm 12. Bipolaris Sorokiniana 1:20 P: W = 0 mm F = 0 mm 13. Penicillium Mix 1:20 P: W = 0 mm F = 0 mm 14. Ken, White 1:20 P: W = 0 mm F = 0 mm 15. Beech, Latvian 1:20 P: W = 0 mm F = 0 mm 16. Birch Mix 1:20 P: W = 0 mm F = 0 mm 17. Maple Mix 1:20 P: W = 0 mm F = 0 mm 18. [place] ,Eastern 1:20 P: W = 0 mm F = 0 mm 19. Elm, Latvian 1:20 P: W = 0 mm F = 0 mm 20. [place], Shagbark 1:20 P: W = 0 mm F = 0 mm 21. [place] Tree, Red 1:20 P: W = 0 mm F = 0 mm 22. [place], Black 1:20 P: W = 0 mm F = 0 mm 23. [place], Latvian/Eastern 1:20 P: W = 0 mm F = 0 mm 24. [place] Pollen, Black 1:20 P: W = 0 mm F = 0 mm 25. [place], Black 1:20 P: W = 0 mm F = 0 mm 26. [place] Grass 10,000 BAU/ml P : W = 0 mm F = 0 mm 27. [place], /April 100,000 BAU/ml P: W = 0 mm F = 0 mm 28. Fescue, [place] 100,000 BAU/ml P: W = 0 mm F = 0 mm 29. Dorian Grass 1:20 P: W = 0 mm F = 0 mm 30. Orchard Grass 100,000 BAU/ml P: W = 0 mm F = 0 mm 31. Perennial [place], 100,000 BAU/ml P: W = 0 mm F = 0 mm 32. Silver 100,000 BAU/ml P: W = 0 mm F = 0 mm 33. [place] 1:20 P: W = 0 mm F = 0 mm 34. [place], sheep 1:20 P: W = 0 mm F = 0 mm 35. Plantain, Cymro 1:20 P: W = 0 mm F = 0 mm 36. Lamb[place] Qu[place] 1:20 P: W = 0 mm F = 0 mm 37. [place] Elder, Burweed 1:20 P: W = 0 mm F = 0 mm 38. Pigweed, Rough 1:20 P: W = 0 mm F = 0 mm 39. Ragweed, Mix 1:20 P: W = 0 mm F = 0 mm 40. HISTAMINE, positive control(Histamine base 6mg/ml) P: W = 3 mm F = 20 mm INTRADERMAL MIXES 1. Negative Control - HSA ID: W = 0 mm F= 0 mm 2. Cat Hair 100 BAU/ml ID: W = 0 mm F= 0 mm 3. Dog Epithelia 1:250 ID: W = 0 mm F= 0 mm 4. Mite DF 30 AU/ml ID: W = 0 mm F= 0 mm 5. Mite DP 30 AU/ml ID: W = 0 mm F= 0 mm 6. Tree Mix, Eastern Tree 1:500 ID: W = 0 mm F= 0 mm 7. Grasses Mix, K-O-T 1000 BAU/ml ID: W = 0 mm F= 0 mm 8. Special Grass Mix 1000 BAU/ml ID: W = 0 mm F= 0 mm 9. Ragweed Mix, 1:500 ID: W = 0 mm F= 0 mm 10. Special Silva Mix 1:500 ID: W = 0 mm F= 0 mm 11. HISTAMINE - (Histamine base 0.1 mg/ml) ID: W = 5 mm F= 18 mm OTHER ALLERGENS: Blueberry: E: W = 0mm F = 0mm Pineapple: E: W = 0mm F = 0mm Patient was instructed on allergy (prick and intradermal) testing. Topical Pramasone cream applied to testing site per Dr. Mora's instruction. Dyan Mora MD 01/22/2018 4:46 PM Addendum Allergy skin tests to environmental allergies and to pineapple and blueberry were negative. Use fluticasone nasal spray 1-2 sprays to each nostril once a day on a regular basis. (If you develop significant nasal irritation or nosebleeds, then, discontinue the fluticasone nasal spray and contact the office. To replace symbicort, start Breo Ellipta. Use one inhalation once a day on a regular basis. Rinse mouth out after use. Continue albuterol hfa inhaler (Proventil, Ventolin, Proair) with spacer 2 puffs every four hours as needed for cough, wheezing, chest tightness or shortness of breath. Please give me an update on how you are feeling in 1-2 months. If necessary, we may add a second nasal spray called astelin or change from fluticasone nasal spray to a different nasal spray. Referring Provider: LIVIA SCOTT [[id number]] Allergies As of Date: 01/22/2018 Noted Allergy Reaction VITAMIN K 07/14/2005 7 - Swelling environmental [Other] 07/14/2005 2 - Rash 3 - Cough CHOLESTYRAMINE 03/31/2013 14 - Other: See Comments Comments: constipation IBUPROFEN 06/29/2009 6 - Diarrhea MACROBID (NITROFURANTOIN MONOHYD/*12/06/2010 2 - Rash Comments: states that broke out all over with rash last time was given this in September 2010 SULFA (SULFONAMIDE ANTIBIOTICS) 02/05/2013 2 - Rash TYLENOL (ACETAMINOPHEN) 03/17/2014 11 - Vomiting Comments: Nausea peroxide [Other] 07/14/2005 5 - Intolerance Date Reviewed: 01/22/2018 Reviewed by: Dyan Pizarro RN - Fully Assessed Reason for Visit: New Patient [172] Cmt: allergies Primary Visit Diagnosis:Nonallergic rhinitis [J31.0] Other Visit Diagnoses:Adverse food reaction, initial encounter [T78.1XXA] Mild persistent asthma without complication [J45.30] Order(s):ALLERGEN SKIN TEST-INHALENT 40 [[id number]] Order #: [id number] ALLERGEN SKIN TEST-FOOD [[id number]] Order #: [id number] INTRACU/DERM TESTS-IMMEDIA RX [[id number]] Order #: [id number] fluticasone-vilanterol (BREO ELLIPTA) 200-25 mcg/dose inhalerInhale 1 Inhalation as instructed once daily.Disp: 1 EachRfl: 11 fluticasone (FLONASE) 50 mcg/actuation nasal sprayUse 1-2 Sprays in each nostril once daily.Disp: 1 BottleRfl: 11 albuterol HFA (PROVENTIL HFA, VENTOLIN HFA) 90 mcg/actuation inhalerInhale 2 Puffs as instructed every 4 hours as needed (for cough, wheezing, chest tightness or shortness of breath. Use with spacer. ).Disp: 1 InhalerRfl: 2 Prescriptions as of 01/22/2018 Sig: CETIRIZINE 10 MG CAPSULE Take by mouth daily at bedtim* FLUTICASONE 200 MCG-VILANTERO* Inhale 1 Inhalation as instru* FLUTICASONE 50 MCG/ACTUATION * Use 1-2 Sprays in each nostri* ALBUTEROL SULFATE HFA 90 MCG/* Inhale 2 Puffs as instructed * GABAPENTIN 300 MG CAPSULE Take 1 in the morning, 1 at l* FUROSEMIDE 40 MG TABLET Take 1 tablet by mouth once d* INSULIN GLARGINE (U-100) 100 * Inject 45 units subcutaneousl* INSULIN GLARGINE (U-100) 100 * Inject 45 Units subcutaneousl* DIPHENOXYLATE-ATROPINE 2.5 MG* Take 1 tablet by mouth before* BENZONATATE 200 MG CAPSULE Take 1 capsule by mouth three* TRIAMCINOLONE ACETONIDE 0.1 %* Apply 1 application to affect* CLONAZEPAM 1 MG TABLET Take 0.5-1 tablets by mouth d* PEN NEEDLE, DIABETIC 31 GAUGE* Use with insulin pens 4 times* PEN NEEDLE, DIABETIC 31 GAUGE* Inject 1 Each subcutaneously * INSULIN ASPART U-100 100 UNI* Inject 7 units 3 times daily * LISINOPRIL 2.5 MG TABLET TAKE 1 TABLET BY MOUTH EVERY * CHOLECALCIFEROL (VITAMIN D3) * Take 1 tablet by mouth once d* WARFARIN 7.5 MG TABLET Take 1 tablet by mouth daily * WARFARIN 5 MG TABLET Take 1 tablet by mouth once d* ROPINIROLE 0.5 MG TABLET Take 1 tablet by mouth three * ENOXAPARIN 40 MG/0.4 ML SUBCU* 40 mg subcutaneous every 12 h* MULTIVITAMIN WITH MINERALS TA* Take 1 tablet by mouth three * VITAMIN E 400 UNIT CAPSULE Take 2 capsules by mouth once* ONDANSETRON HCL 4 MG TABLET Take 1 tablet by mouth every * OMEPRAZOLE 40 MG CAPSULE,LALITO* Take 1 capsule by mouth once * SUCRALFATE 100 MG/ML ORAL BART* Take 10 mL by mouth four time* SIMVASTATIN 10 MG TABLET Take 1 tablet by mouth daily * COMPOUNDED PRESCRIPTION SHOWER CHAIR WITH BACK D* COMPOUNDED PRESCRIPTION SUCTION STYLE GRAB BAR FOR SH* VERAPAMIL 40 MG TABLET Take 1 tablet by mouth three * ALBUTEROL SULFATE HFA 90 MCG/* Inhale 2 Puffs as instructed * LORATADINE 10 MG TABLET Take 1 tablet by mouth once d* DICYCLOMINE 10 MG CAPSULE Take 1 capsule by mouth four * OXYCODONE-ACETAMINOPHEN 5 MG-* Take 1 tablet by mouth every * COLESEVELAM 625 MG TABLET Take 1-2 tablets by mouth twi* COUMADIN 1 MG TABLET take 5mg daily except for Sun* QUETIAPINE 25 MG TABLET Take 1 tablet by mouth twice * SPIRONOLACTONE 25 MG TABLET Take 1 tablets by mouth once * FLUTICASONE 50 MCG/ACTUATION * Use 2 Sprays in each nostril * TOPIRAMATE 50 MG TABLET Take 1 tablet by mouth twice * ALBUTEROL SULFATE 2.5 MG/3 ML* Use 3 mL via nebulizer every * LEVOTHYROXINE 100 MCG TABLET Take 1 tablet by mouth daily * BLOOD PRESSURE TEST KIT-WRIST* Use to check blood pressure o* HYDROXYCHLOROQUINE 200 MG TAB* Take 1 tablet by mouth once d* BLOOD SUGAR DIAGNOSTIC STRIPS Test blood sugar 4 x daily. D* BUDESONIDE-FORMOTEROL HFA 160* Inhale 2 Puffs as instructed * TIZANIDINE 4 MG TABLET Take 1 tablet by mouth every * YASMINE-MAG ORAL Take by mouth. NYSTATIN 100,000 UNIT/GRAM TO* Apply 1 application to affect* ESCITALOPRAM 20 MG TABLET Take 1 tablet by mouth once d* NYSTATIN 100,000 UNIT/ML ORAL* 1 tsp swish and swallow until* COMPOUNDED PRESCRIPTION Morphine 15 mg per pump fille* LEFLUNOMIDE 20 MG TABLET Take 1 tablet by mouth once d* LACTOBACILLUS ACIDOPHILUS 10 * Take 2 tablets by mouth daily* VITAMIN B COMPLEX TABLET Take 1 tablet by mouth once d* COMPOUNDED PRESCRIPTION Decrease BiPAP settings to 11* MISCELLANEOUS MEDICAL SUPPLY * CUSTOM JOBST KNEE HI KIRSTY* KETOCONAZOLE 2 % TOPICAL CREAM Apply 1 application to affect* OMEGA-3 FATTY ACIDS-VITAMIN E* Take 1 capsule by mouth three* TRAZODONE 100 MG TABLET Take 2 tablets by mouth daily* Problem List As Of Date 01/22/2018 Noted Resolved OTHER LUNG DISEASE NEC [J98.4] Asthma [J45.909] OTHER UNSPEC SLEEP APNEA [G47.30] Dysmetabolic syndrome X [E88.81] 09/11/2011 Fibromyalgia [[id number]] Embolism and thrombosis (HCC) [I74.9] INVALID FOR* GOITER NOS [E04.9] REFLUX ESOPHAGITIS [K21.0] NAUSEA ALONE [R11.0] ACUTE GASTRITIS W/O HEMORRHAGE [K29.00] INVALID FOR* CONSTIPATION NOS [K59.00] INVALID FOR* More... 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 Obstructive Sleep Apnea [G47.33] INVALID FOR* More... Hypothyroidism [E03.9] INVALID FOR* Exostosis of unspecified site [M89.8X9] INVALID FOR*11/27/2017 Other hammer toe (acquired) [M20.40] INVALID FOR*11/27/2017 Hx of hysterectomy [Z98.890, Z90.710] INVALID FOR* More... Allergic rhinitis [J30.9] More... 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] INVALID FOR* Environmental allergies [Z91.09] INVALID FOR*11/27/2017 Morbid obesity due to excess calories (HCC) [E6* Chronic kidney disease, stage III (moderate) [N*INVALID FOR*11/27/2017 Essential hypertension [I10] INVALID FOR* Nephrolithiasis [N20.0] INVALID FOR* Vitamin D deficiency [E55.9] INVALID FOR* Rheumatoid arthritis (HCC) [M06.9] INVALID FOR* Bipolar disorder, unspecified [F31.9] INVALID FOR* Alopecia, unspecified [L65.9] INVALID FOR*11/27/2017 Personal history of pulmonary embolism [Z86.711]INVALID FOR* Irritable bowel syndrome [K58.9] INVALID FOR* Neuropathy [G62.9] INVALID FOR* Incisional hernia [K43.2] INVALID FOR* Polycythemia, secondary [D75.1] INVALID FOR* Anticoagulated on Coumadin [Z51.81, Z79.01] INVALID FOR* STACY treated with BiPAP [G47.33] More... Type 2 DM with CKD stage 3 and hypertension (HC*INVALID FOR* Polypharmacy [Z79.899] INVALID FOR* Noncompliance with treatment [Z91.19] INVALID FOR* CKD (chronic kidney disease) stage 4, GFR 15-29*INVALID FOR*08/26/2017 Nonallergic rhinitis [J31.0] INVALID FOR* Other instructions from your clinician: Allergy skin tests to environmental allergies and to pineapple and blueberry were negative. Use fluticasone nasal spray 1-2 sprays to each nostril once a day on a regular basis. (If you develop significant nasal irritation or nosebleeds, then, discontinue the fluticasone nasal spray and contact the office. To replace symbicort, start Breo Ellipta. Use one inhalation once a day on a regular basis. Rinse mouth out after use. Continue albuterol hfa inhaler (Proventil, Ventolin, Proair) with spacer 2 puffs every four hours as needed for cough, wheezing, chest tightness or shortness of breath. Please give me an update on how you are feeling in 1-2 months. If necessary, we may add a second nasal spray called astelin or change from fluticasone nasal spray to a different nasal spray. Visit Notes: >> Dyan Pineda Jan 22, 2018 3:11 PM Status: Signed Patient c/o sneezing, coughing, watery/itchy eyes, itchy nose, sore throat. Also has hives on and off that will last a few days- has had for couple of years. Takes Claritin in am and Zyrtec in pm, also uses fluticasone nasal spray. Uses albuterol inhaler a few times a year. Uses 2 liters of O2 at night and bipap machine for sleep apnea. Was on allergy IT for years. Prescriptions ordered this encounter Disp Refills Start End FLUTICASONE 200 MCG-VILANTEROL 25 MC* 1 Ea* 11 01/22/2018 Route: INHALATION Sig: Inhale 1 Inhalation as instructed once daily. FLUTICASONE 50 MCG/ACTUATION NASAL S* 1 Yosi* 11 01/22/2018 Route: EACH NOSTRIL Sig: Use 1-2 Sprays in each nostril once daily. ALBUTEROL SULFATE HFA 90 MCG/ACTUATI* 1 In* 2 01/22/2018 Route: INHALATION Sig: Inhale 2 Puffs as instructed every 4 hours as needed (for cough, wheezing, chest tightness or shortness of breath. Use with spacer. ). Follow-up and Disposition History Recorded Encounter Status:Closed by AMRIT MORA MD on 01/23/18 PROGRESS Observed: 01/15/2018 Status: COMPLETED Source: [place] 4:10 PM [facility] REPOSITORY HNO ID: [id number] Author: Sheeba King RN Service: (none) Author Type: (none) Type: Progress Notes Filed: 01/15/2018 4:10 PM Note Text: per written order by dr scott she agrees with information below, encounter is being closed PROGRESS Observed: 01/15/2018 Status: COMPLETED Source: [place] 2:46 PM [facility] REPOSITORY HNO ID: [id number] Author: Sheeba King RN Service: (none) Author Type: (none) Type: Progress Notes Filed: 01/15/2018 2:47 PM Note Text: patient had inr completed at [facility] patients inr is 2.8 (patients inr range is 3.0-4.0) patient is currently taking 7.5mg Tues,Thurs and 5mg all other days patients last dose change was on 11/13/17 due to a high level of 4.0 (dose at that time was 7.5mg Gilda,Wed and 5mg all other days) patient has had no changes in medication and no missed doses and no change in diet Advised patient to continue on the same dose(s) and that they would only be contacted regarding dosage and follow up instructions after review with provider, if a change is needed. Written instructions given and patient verbalized understanding. Presently scheduled in 1 week (01/22/18) for follow up INR. CNCO Observed: 01/08/2018 Status: COMPLETED Source: [place] 12:00 AM [facility] REPOSITORY Letter Text Debora Meyers Allergy AND Clinical Immunology [facility] [address] [facility], [facility] [address] [address] January 08, 2018 Dear Debora Meyers, Below you will find a list of CPT codes that are used for allergy testing. We recommend that you call your health insurance plan prior to your appointment date to verify that these tests are covered. When contacting your insurance to inquire about coverage at our office, please be sure that the insurance is aware that this will be billed as a Hospital Outpatient Setting. The codes are as follows: CPT 78250 - Skin Testing - Percutaneous Allergen Extracts CPT 48788 - Skin Testing - Intradermal Allergen Extracts If you are scheduled for the following breathing tests: CPT 27343 - Spirometry - Pre-bronchodilator CPT 87427 - Spirometry - Post-bronchodilator CPT 64171 - Exhaled Nitric Oxide CPT 84990 - Penicillin Testing Your health insurance plan may also request a diagnosis code. These are as follows: J30.1- Allergic Rhinitis J31.0 - Chronic Rhinitis J45.909 - Asthma The health insurance plan will inform you if you have either a co-payment due or if there is a deductible. The co-payment will be due at the time of the visit. Also, please bring your current health plan insurance card so it can be verified and updated in our system. Sincerely, Department of All[facility] Clinical [facility] Instructions for Your Appointment If you are currently taking any of the following medications that contain antihistamines, stop taking the medication 5 days prior to your appointment: Kiara (fexofenadine) Clarinex (desloratadine) Claritin/Alavert (loratadine) Xyzal (levocetirizine) Zyrtec (cetirizine) Patanase (olopatadine hydrochloride) Atarax (hydroxyzine) Aller-Chlor/ChlorTabs (chlorpheniramine) Astelin nasal spray Astepro nasal spray Dymista nasal spray If you are taking Silenor (doxepin) or Elavil (amitriptyline), please stop 48 hours prior to appointment if prescribing physician allows. You may use Benadryl up to 48 hours prior to your appointment. If you are taking antihistamines for hives or rash, you may continue taking the antihistamine and the doctor will consider alternative testing if necessary. Please bring a list of medications that you are taking. Your appointment may last 1-2 hours. PROGRESS Observed: 01/01/2018 Status: COMPLETED Source: [place] 3:53 PM [facility] [place] REPOSITORY HNO ID: [id number] Author: Sheeba King RN Service: (none) Author Type: (none) Type: Progress Notes Filed: 01/01/2018 3:54 PM Note Text: per written order by dr scott she agrees with information below PROGRESS Observed: 01/01/2018 Status: COMPLETED Source: [place] 2:51 PM [facility] REPOSITORY HNO ID: [id number] Author: Sheeba King RN Service: (none) Author Type: (none) Type: Progress Notes Filed: 01/01/2018 2:54 PM Note Text: patient had inr completed at [facility] patients inr is 3.0 (patients inr range is 3.0-4.0) patient is currently taking 7.5mg Tues,Thurs and 5mg all other days patients last dose change was on 11/13/17 due to a high normal level of 4.0 (dose at that time was 7.5mg Tues,Wed and 5mg all other days patient has had no changes in medication and no change in diet Advised patient to continue on the same dose(s) and that they would only be contacted regarding dosage and follow up instructions after review with provider, if a change is needed. Written instructions given and patient verbalized understanding. Presently scheduled in 1 week (01/08/18) for follow up INR. PROGRESS Observed: 12/26/2017 Status: COMPLETED Source: DRIS[place]LL 3:48 PM [facility] REPOSITORY HNO ID: [id number] Author: Sheeba King RN Service: (none) Author Type: (none) Type: Progress Notes Filed: 12/26/2017 3:48 PM Note Text: per written order by dr scott she agrees with information encounter is being closed PROGRESS Observed: 12/25/2017 Status: COMPLETED Source: [place] 2:49 PM [facility] REPOSITORY HNO ID: [id number] Author: Sheeba King RN Service: (none) Author Type: (none) Type: Progress Notes Filed: 12/25/2017 2:51 PM Note Text: patient had inr completed at [facility] patients inr is 3.0 (patients inr range is 3.0-4.0) patient is currently taking 7.5mg Tues,Thur and 5mg all other days patients last dose change was on 11/13/17 due to a high normal level of 4.0 (dose at that time was 7.5mg Tues,Wed and 5mg all other days) patient has had a change in medication as patient is currently taking an antibiotic and no change in diet Advised patient to continue on the same dose(s) and that they would only be contacted regarding dosage and follow up instructions after review with provider, if a change is needed. Written instructions given and patient verbalized understanding. Presently scheduled in 1 week (01/01/18) for follow up INR. CBC W/DIFF, AUTOMATED Collected: 12/18/2017 Status: F Source: RAÚL 12:36 PM [facility] REPOSITORY TYPE CODE TESTS RESULT OUT OF RANGE REFERENCE UNITS LAB L100.1000 4.4-11.0 K/mm3 Normal WBC 4.5 LAB L100.1200 4.2-5.4 M/mm3 Normal RBC 4.30 LAB L100.1300 12.0-15.0 g/dl Normal HGB 14.5 LAB L100.1400 37-47 % Normal HCT 43.5 LAB L100.1500 81-99 fL High MCV 101.2 LAB L100.1600 27.0-32.0 pg High MCH 33.7 LAB L100.1700 32-36 g/gl Normal MCHC 33.3 LAB L100.1810 11.6-14.6 % Normal RDW CV 13.6 LAB L100.1820 35.1-43.9 fl High RDW SD 49.8 LAB L100.1900 150-450 K/mm3 Normal PLT 160 LAB L100.2000 6.2-12.0 fl Normal MPV 9.5 LAB L100.2100 47-70 % Normal NEUT% 56.7 LAB L100.2200 19-41 % Normal LY% 28.2 LAB L100.2300 0-10 % High MONO% 11.9 LAB L100.2400 0-5 % Normal EO% 2.6 LAB L100.2500 0-1 % Normal BASO% 0.4 LAB L100.2550 0.0-0.9 % Normal IM GRAN % 0.200 Result Comment: IG% - Immature Granulocytes (promyelocytes, myelocytes and metamyelocytes) > 1% indicates that a LEFT SHIFT is Present. LAB L100.2620 2.0-7.7 X10 3/uL Normal Absolute Neut 2.6 LAB L100.2720 0.83-4.51 X10 3/ul Normal Absolute Lymph 1.28 Performed By: #### L100.0100 #### [facility] [place], [address] COMPREHENSIVE METABOLIC Collected: 12/18/2017 Status: F Source: RAÚL CROWE 12:36 PM [facility] REPOSITORY TYPE CODE TESTS RESULT OUT OF RANGE REFERENCE UNITS LAB L501.0100 70-110 mg/dL High GLU 261 Result Comment: Glucose result greater than or equal to 200 mg/dL suggests DIABETES MELLITUS per A.D.A. criteria. LAB L501.1000 7-18 mg/dL High BUN 30 LAB L501.1100 0.55-1.02 mg/dL High CREAT,SERUM 1.73 Result Comment: The validity of the calculated GFR AND GFRAA in patients over 70 years has not been determined. Clinical correlation is essential. LAB L501.1110 >60 mL/min Low EST GFR 33 Result Comment: Non- GFR Calc LAB L501.1115 >60 mL/min Low EST GFR - AA 40 Result Comment: GFR Calc LAB L501.1300 10-20 RATIO Normal BUN/CRE 17.3 LAB L501.1500 6.4-8.2 g/dL T Normal PROT 7.3 LAB L501.1800 3.2-5.0 g/dL Normal ALB 3.4 LAB L501.1950 2.2-4.2 g/dL Normal GLOB 3.9 LAB L501.2000 0.9-2.4 RATIO Normal A/G 0.9 LAB L501.2200 8.5-10.1 mg/dL CA Normal 9.7 LAB L501.4100 15-37 U/L Normal AST 23 LAB L501.4305 45-117 U/L High ALK P 135 LAB L501.4405 13-56 U/L Normal ALT 38 Result Comment: Please note revised ALT reference range effective 2017. LAB L501.4600 0.20-1.00 mg/dL Normal T BILI 0.40 LAB L501.5300 136-145 mmol/L Normal NA 138 LAB L501.5600 3.5-5.1 mmol/L Normal K 3.8 LAB L501.5900 98-107 mmol/L Normal CL 102 LAB L501.6100 21.0-32.0 mmol/L Normal CO2 27.0 LAB L501.6200 5-15 Normal GAP 9 Performed By: #### L500.4050 #### [facility] [place], [address] CNCO Observed: 12/18/2017 Status: COMPLETED Source: [place] 12:00 AM [facility] REPOSITORY Letter Text Debora Meyers Allergy AND Clinical Immunology [facility] [address] [place] [address], [address] [place], [place] [address] December 18, 2017 Dear Debora Meyers, Below you will find a list of CPT codes that are used for allergy testing. We recommend that you call your health insurance plan prior to your appointment date to verify that these tests are covered. When contacting your insurance to inquire about coverage at our office, please be sure that the insurance is aware that this will be billed as a Hospital Outpatient Setting. The codes are as follows: CPT 76185 - Skin Testing - Percutaneous Allergen Extracts CPT 17663 - Skin Testing - Intradermal Allergen Extracts If you are scheduled for the following breathing tests: CPT 04419 - Spirometry - Pre-bronchodilator CPT 35219 - Spirometry - Post-bronchodilator CPT 48528 - Exhaled Nitric Oxide CPT 73927 - Penicillin Testing Your health insurance plan may also request a diagnosis code. These are as follows: J30.1- Allergic Rhinitis J31.0 - Chronic Rhinitis J45.909 - Asthma The health insurance plan will inform you if you have either a co-payment due or if there is a deductible. The co-payment will be due at the time of the visit. Also, please bring your current health plan insurance card so it can be verified and updated in our system. Sincerely, Department of Allergy AND Clinical Immunology [facility] Instructions for Your Appointment If you are currently taking any of the following medications that contain antihistamines, stop taking the medication 5 days prior to your appointment: Kiara (fexofenadine) Clarinex (desloratadine) Claritin/Alavert (loratadine) Xyzal (levocetirizine) Zyrtec (cetirizine) Patanase (olopatadine hydrochloride) Atarax (hydroxyzine) Aller-Chlor/ChlorTabs (chlorpheniramine) Astelin nasal spray Astepro nasal spray Dymista nasal spray If you are taking Silenor (doxepin) or Elavil (amitriptyline), please stop 48 hours prior to appointment if prescribing physician allows. You may use Benadryl up to 48 hours prior to your appointment. If you are taking antihistamines for hives or rash, you may continue taking the antihistamine and the doctor will consider alternative testing if necessary. Please bring a list of medications that you are taking. Your appointment may last 1-2 hours. PROGRESS Observed: 12/12/2017 Status: COMPLETED Source: [place] 5:05 PM [facility] [place] REPOSITORY O ID: [id number] Author: Livia Scott Service: (none) Author Type: Physician Type: Progress Notes Filed: 12/27/2017 9:33 AM Note Text: Patient presents with: Recheck: 4 month follow up SUBJECTIVE: Debora Meyers is a 52 year old year old lady here today for 4 month follow up appointment for review of medical conditions. Still getting over sinus symptoms. Treated for sinusitis. Claritin in AM and Zyrtec at night. Mucinex sinus severe. Coughing spells worse at night. During day too. Tesomrales brunson not helping much. Overall doing fine from DM, HTN and other endocrine issues standpoint. Depression and anxiety controlled fairly well. PAST MEDICAL HISTORY Diagnosis Date - Allergic rhinitis used to receive allergy shots from Dr. Brown - Alopecia, unspecified 08/29/2012 - Anticoagulated on Coumadin INR goal 3.0 to 4.0 - Asthma - Benign neoplasm of stomach - Bipolar disorder, unspecified 08/29/2012 - Diabetes mellitus type 2, controlled, without complications (HCC) 08/12/2007 In records from treatment after elevated sugars in 2001 during hospital stay; no longer on any meds and sugars have been fine--either normal or just in impaired fasting glucose level - Environmental allergies 01/17/2012 - Exostosis of unspecified site 09/27/2010 - Fibromyalgia - Goiter, unspecified - Hypothyroidism 10/28/2009 - Nausea alone - Obesity - STACY treated with BiPAP [facility] supplier - Other diseases of lung, not elsewhere classified - Other hammer toe (acquired) 09/27/2010 - RA (rheumatoid arthritis) (HCC) - 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 also elevated BMI . RECOMMENDATIONS are 1.weight loss.2. not seen significant sleep apnea however absense or REM sleep sleep apnea may be understimated.Extrinsic factors leading to excessive daytime somnolence such as mood disturbances and or medication effect may be a factor Current Outpatient Prescriptions: Benzonatate 200 mg capsule Take 1 capsule by mouth three times daily as needed. diphenoxylate-atropine (LOMOTIL) 2.5-0.025 mg per tablet Take 1 tablet by mouth before meals and at bedtime for 30 days. as needed triamcinolone acetonide (KENALOG) 0.1 % cream Apply 1 application to affected area three times daily as needed (itchy rash/psoriasis on hands). Apply sparingly clonazePAM (KLONOPIN) 1 mg tablet Take 0.5-1 tablets by mouth daily at bedtime for 90 days. insulin needles, DISPOSABLE, (BD INSULIN PEN NEEDLE UF) 31 gauge x 5/16 ndle Use with insulin pens 4 times daily as directed insulin needles, DISPOSABLE, (UNIFINE PENTIPS) 31 gauge x 5/16 ndle Inject 1 Each subcutaneously four times daily. furosemide (LASIX) 40 mg tablet Take 1 tablet by mouth once daily. insulin aspart (NOVOLOG FLEXPEN) 100 unit/mL inpn Inject 7 units 3 times daily with meals and as directed for high sugars lisinopril 2.5 mg tablet TAKE 1 TABLET BY MOUTH EVERY DAY cholecalciferol (VITAMIN D3) 5,000 unit tab Take 1 tablet by mouth once daily. warfarin (COUMADIN) 7.5 mg tablet Take 1 tablet by mouth daily as directed. warfarin (COUMADIN) 5 mg tablet Take 1 tablet by mouth once daily. SHENG - 7.5mg tues, wed and 5mg all other days or as directed rOPINIRole (REQUIP) 0.5 mg tablet Take 1 tablet by mouth three times daily. enoxaparin (LOVENOX) 40 mg/0.4 mL syrg 40 mg subcutaneous every 12 hours starting August 25 in the morning; take only the morning dose August 27; do not take August 28 (day of procedure); resume 40 mg every 12 hours starting evening of August 29; continue until INR therapeutic multivitamin with minerals (HAIR,SKIN AND NAILS) tablet Take 1 tablet by mouth three times daily. alpha tocopheryl acetate (VITAMIN E) 400 unit capsule Take 2 capsules by mouth once daily. ondansetron (ZOFRAN) 4 mg tablet Take 1 tablet by mouth every 8 hours as needed for Nausea/Vomiting. Omeprazole 40 mg capsule Take 1 capsule by mouth once daily. sucralfate (CARAFATE) 100 mg/mL suspension Take 10 mL by mouth four times daily as needed. As directed (usually before meals and bedtime as needed) gabapentin (NEURONTIN) 300 mg capsule Take 1 in the morning, 1 at lunch, 3 at bedtime daily simvastatin (ZOCOR) 10 mg tablet Take 1 tablet by mouth daily at bedtime. COMPOUNDED PRESCRIPTION SHOWER CHAIR WITH BACK DX M06.9 I74.9 COMPOUNDED PRESCRIPTION SUCTION STYLE GRAB BAR FOR SHOWER WALL INSTALLATION DX M 06.9 I 74.9 verapamil (CALAN, ISOPTIN) 40 mg tablet Take 1 tablet by mouth three times daily. albuterol HFA (PROAIR HFA) 90 mcg/actuation inhaler Inhale 2 Puffs as instructed every 4 hours as needed for Wheezing/Shortness of Breath. loratadine (CLARITIN) 10 mg tablet Take 1 tablet by mouth once daily. dicyclomine (BENTYL) 10 mg capsule Take 1 capsule by mouth four times daily as needed (cramping pains and urgency with bowels). oxyCODONE-acetaminophen (PERCOCET) 5-325 mg tablet Take 1 tablet by mouth every 4 hours as needed. colesevelam (WELCHOL) 625 mg tablet Take 1-2 tablets by mouth twice daily with meals. as directed for possible bile gastritis Patient taking 1 in am and 1 in evening COUMADIN 1 mg tablet take 5mg daily except for Sunday, take 7.5 mg on Sunday or as directedDO NOT SUBSITUTE WITH GENERIC. insulin glargine (LANTUS SOLOSTAR) 100 unit/mL (3 mL) inpn Inject 45 units subcutaneously once daily in the evening QUEtiapine (SEROQUEL) 25 mg tablet Take 1 tablet by mouth twice daily. spironolactone (ALDACTONE) 25 mg tablet Take 1 tablets by mouth once daily in the AM fluticasone (ALLERGY RELIEF, FLUTICASONE,) 50 mcg/actuation nasal spray Use 2 Sprays in each nostril once daily as needed. topiramate (TOPAMAX) 50 mg tablet Take 1 tablet by mouth twice daily. albuterol (PROVENTIL) 2.5 mg /3 mL (0.083 %) nebulizer solution Use 3 mL via nebulizer every 6 hours as needed. levothyroxine (LEVOXYL) 100 mcg tablet Take 1 tablet by mouth daily before breakfast. Blood Pressure Test Kit-Wrist kit Use to check blood pressure once daily as directed DX:I10 hydroxychloroquine (PLAQUENIL) 200 mg tablet Take 1 tablet by mouth once daily. blood sugar diagnostic (TRUE METRIX GLUCOSE TEST STRIP) test strip Test blood sugar 4 x daily. Dx: E11.22. Insulin use: Yes budesonide-formoterol (SYMBICORT) 160-4.5 mcg/actuation inhaler Inhale 2 Puffs as instructed twice daily. tiZANidine (ZANAFLEX) 4 mg tablet Take 1 tablet by mouth every 8 hours as needed (muscle spasms). Dr Wetzel CALCIUM CARB/MAGNESIUM OX,CARB (YASMINE-MAG ORAL) Take by mouth. nystatin (MYCOSTATIN) cream Apply 1 application to affected area twice daily. As needed escitalopram oxalate (LEXAPRO) 20 mg tablet Take 1 tablet by mouth once daily. nystatin (MYCOSTATIN) 100,000 unit/mL suspension 1 tsp swish and swallow until gone, 4 times daily COMPOUNDED PRESCRIPTION Morphine 15 mg per pump filled every [address] Wetzel leflunomide (ARAVA) 20 mg tablet Take 1 tablet by mouth once daily. Lactobacillus acidophilus (PROBIOTIC) 10 billion cell cap Take 2 tablets by mouth daily at bedtime. vitamin b complex (B COMPLETE) tab Take 1 tablet by mouth once daily. COMPOUNDED PRESCRIPTION Decrease BiPAP settings to 11/5 cmH2O. Diagnosis G47.33 Miscellaneous Medical [facility] CUSTOM JOBST KNEE HI COMPRESSION STOCKING 30-40MM/HG. Dispense 2 pair Diagnosis:(I87.2) Venous insufficiency of both lower extremities; (R60.9) Edema ketoconazole (NIZORAL) 2 % cream Apply 1 application to affected area once daily. as needed to corners of lips and other rash as directed [place]-3 Fatty Acids-Vitamin E (FISH OIL) 1,000 mg cap Take 1 capsule by mouth three times daily. traZODONE 100 mg ORAL tablet Take 2 tablets by mouth daily at bedtime. (Dr. Ruano--noted that 1 pill not adequate) No current facility-administered medications for this visit. OBJECTIVE: BP 128/72 Pulse 68 Resp 16 Wt 114.3 kg (252 lb) BMI 47.61 kg/m2 Patient is alert, oriented times 3, no apparent distress, affect is bright, reactive. Last 5 Encounter BP Readings: Date: BP: 12/12/2017 128/72 11/27/2017 124/82 07/31/2017 120/70 05/15/2017 130/72 05/08/2017 122/82 Last 5 Encounter Wt Readings: Date: Wt: 12/12/2017 114.3 kg (252 lb) 11/27/2017 115.2 kg (254 lb) 07/31/2017 122.5 kg (270 lb) 05/15/2017 117.9 kg (260 lb) 05/08/2017 117.5 kg (259 lb) Heart: Regular rate, rhythm, no murmurs, gallops, rubs. Lungs: Clear to auscultation, bilaterally, breathing non labored. Ext: No cyanosis, clubbing, or edema. Component Latest Ref Rng AND Units 07/28/2017 11/13/2017 Protein, Total 6.3 - 8.0 g/dL 7.1 Albumin 3.9 - 4.9 g/dL 4.0 Calcium 8.5 - 10.2 mg/dL 9.9 10.5 (H) Bilirubin, Total 0.2 - 1.3 mg/dL 0.2 Alkaline Phosphatase 32 - 117 U/L 107 AST 13 - 35 U/L 32 Glucose 74 - 99 mg/dL 250 (H) 244 (H) BUN 7 - 21 mg/dL 41 (H) 30 (H) Creatinine 0.58 - 0.96 mg/dL 1.66 (H) 1.87 (H) Sodium 136 - 144 mmol/L 139 140 Potassium 3.7 - 5.1 mmol/L 4.1 3.9 Chloride 97 - 105 mmol/L 99 99 CO2 22 - 30 mmol/L 24 24 Anion Gap 9 - 18 mmol/L 16 17 ALT 7 - 38 U/L 36 eGFR- 40 34 eGFR-All Other Races . 33 29 WBC 3.70 - 11.00 k/uL 5.35 RBC 3.90 - 5.20 m/uL 4.13 Hemoglobin 11.5 - 15.5 g/dL 14.4 Hematocrit 36.0 - 46.0 % 42.9 MCV 80.0 - 100.0 fL 103.9 (H) MCH 26.0 - 34.0 pG 34.9 (H) MCHC 30.5 - 36.0 g/dL 33.6 RDW-CV 11.5 - 15.0 % 12.6 Platelet Count 150 - 400 k/uL 153 MPV 9.0 - 12.7 fL 10.7 Absolute nRBC <0.01 k/uL <0.01 Hemoglobin A1C 4.3 - 5.6 % 7.1 (H) 8.4 (H) Estimated Average Glucose mg/dL 157 194 Vitamin D 25 Hydroxy 31.0 - 80.0 ng/mL 25.4 (L) 38.3 Magnesium 1.7 - 2.3 mg/dL 2.5 (H) TSH 0.400 - 5.500 uU/mL 0.999 0.872 Free T4 0.9 - 1.7 ng/dL 1.0 Free T3 2.3 - 4.1 pg/mL 2.6 ASSESSMENT AND PLAN: Encounter Diagnosis ICD-10-CM 1. Chronic non-seasonal allergic rhinitis J30.89 CONSULT TO ALLERGY/IMMUNOLOGY was given allergy injections through ENT for everything for several years; stopped injections about 1 year ago (?outstanding bill); would like to resume shots 2. Acute non-recurrent maxillary sinusitis J01.00 slowly resolving sinusitis 3. Mild intermittent asthma without complication J45.20 4. Type 2 DM with CKD stage 3 and hypertension ([facility]) E11.22 HGB A1C I12.9 COMP METABOLIC PANEL N18.3 5. Bipolar affective disorder, remission status unspecified ([facility]) F31.9 6. Rheumatoid arthritis involving multiple sites with positive rheumatoid factor ([facility]) M05.79 7. Morbid obesity due to excess calories ([facility]) E66.01 8. 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 Patient involved in shared decision making for management of her medical issues. History and medications reviewed. Epic updated as needed Refills taken care of and meds adjusted as indicated after reviewed history, exam and labs. Health Maintenance reviewed. Updated record and/or ordered tests as recorded. Encouraged on efforts at healthy diet and regular exercise and adequate sleep. Needs to keep working on diet and exercise with lifestyle changes for effective weight loss, DM control, lipid and HTN control, etc. Continues to follow-up with Dr. Scott for rheumatoid arthritis. Stable from the standpoint of hypothalamic disorders. The majority of the visit was spent counseling and/or coordinating care for the patient. [id number] time was at least 25 minutes. Livia Scott MD ALLERGIES ALLERGIES DATE TYPE / CODE NAME / CODE REACTION SEVERITY SOURCE Drug Sulfa (Sulfonamide Hives Unknown [place] 8 Allergy/478328013 Antibiotics)/F0010 [facility] (SNOMED CT) [address](RXNORM) Hospital Repository Drug iodine/[id number]( burning Unknown [place] 8 Allergy/731798269 RXNORM) (topical) [facility] (SNOMED CT) Hospital Repository Drug hydrogen Rash Unknown [place] 8 Allergy/115899029 peroxide/[id number] [facility] (SNOMED CT) 7(RXNORM) Hospital Repository Miscellaneous vitamin k Swelling/burnin Unknown [place] 7 Allergy/495167853 g around [facility] (SNOMED CT) injection site Hospital Repository DRUG ACETAMINOPHEN Vomiting [place] [facility] INGREDI/452759486 [facility] (SNOMED CT) [place] Repository DRUG CHOLESTYRAMINE OTHER: SEE C [place] 3 INGREDI/306481484 [facility] (SNOMED CT) [place] Repository Drug SULFA (SULFONAMIDE RASH [place] 3 Class/762057154(S ANTIBIOTICS) [facility] NOMED CT) [place] Repository DRUG/266419792(SN NITROFURANTOIN RASH [place] [address]) MONOHYD/M-CRYST Clinic [facility] [place] Repository DRUG IBUPROFEN DIARRHEA [place] 9 INGREDI/492821057 [facility] (SNOMED CT) [place] Repository DRUG/153431275(SN VITAMIN K SWELLING Med [place] [address]) Clinic Main [place] Repository Miscellaneous OTHER RASH [facility] [place] 5 Allergy/738117875 [facility] (SNOMED CT) [place] Rep[facility] Miscellaneous OTHER INTOLERANCE [place] 5 Allergy/565056381 [facility] (SNOMED CT) [place] Repository ENCOUNTERS ENCOUNTERS ADMIT/DISCHARGE ACCOUNT ADMITTING ENCOUNTER LOCATION SOURCE NUMBER CLASS 12/02/2018/12/03/19 [id number] Ambulatory [address] Main [place] Repository 12/02/2018 [id number] [facility] ing:LAB.FUTUR Repository E 11/21/2018 [id number] [facility] ing:LAB.FUTUR Repository E 11/20/2018 [id number] [facility] ing:POLAB3 Repository 11/18/2018/11/22/[id number] Main [place] Repository 11/18/2018 [id number] Ambulatory [facility] Main [place] Repository 11/15/2018/11/18/20 [id number] Ambulatory [address] [place] Repository 11/15/2018/11/20/19 [id number] Ambulatory [address] Main [place] Repository 11/08/2018/11/10/[id number] [place] Repository 11/05/2018 [id number] [facility] ing:LAB.FUTUR Repository E 11/04/2018/11/04/20 [id number] Ambulatory [address] Main [place] Repository 11/04/2018/11/05/20 [id number] Ambulatory [address] Main [place] Repository 11/04/2018/11/05/20 [id number] Ambulatory [address] Main [place] Repository 10/31/2018/10/31/20 [id number] Ambulatory [address] Main [place] Repository 10/22/2018/10/23/20 [id number] Ambulatory [address] Main [place] Repository 10/19/2018/10/19/20 [id number] Ambulatory [address] Main [place] Repository 10/14/2018/10/15/20 [id number] Ambulatory [address] Main [place] Repository 10/07/2018/11/19 [id number] Ambulatory [address] Main [place] Repository 10/07/2018/10/09/20 [id number] Ambulatory [address] Main [place] Repository 09/27/2018/09/27/20 [id number] Ambulatory [address] Main [place] Repository 09/27/2018/09/30/20 [id number] Ambulatory [address] Main [place] Repository 09/27/2018/09/30/20 [id number] Ambulatory [address] Main [place] Repository 09/05/2018/09/06/20 [id number] Ambulatory [address] [place] Repository 08/28/2018/08/28/20 [id number] Ambulatory [address] Repository 08/23/2018 [id number] Ambulatory [facility] ing:LAB Repository 08/12/2018/08/22/20 [id number] Ambulatory [address] Main [place] Repository 08/09/2018/08/09/20 [id number] Ambulatory [address] Main [place] Repository 07/02/2018/07/03/20 [id number] Ambulatory [address] Repository 06/28/2018 [id number] Ambulatory [facility] ing:LAB.FUTUR Repository E 06/28/2018/06/28/20 [id number] Ambulatory [address] [place] Repository 06/25/2018/06/26/20 [id number] Ambulatory [address] [place] Repository 06/18/2018/06/19/20 [id number] Ambulatory [address] Repository 06/14/2018/06/17/20 [id number] Ambulatory [address] Repository 06/07/2018/06/11/20 [id number] [facility] [address] ing:PCURoom: Repository WEK180Qau: 1 06/07/2018 [id number] [facility] Ambulatory BMSBuilding:Elisha Olsen MS.[facility] Repository 06/07/2018 [id number] [facility] Ambulatory BMSBuilding:B [place] MS.[facility] Repository 06/07/2018 [id number] [facility] Ambulatory BMSBuilding:B [place] MS.[facility] Repository 06/07/2018/06/11/20 [id number] Ambulatory BMSBuilding:W [place] [facility] Repository 06/04/2018/06/05/20 [id number] Ambulatory [address] Main [place] Repository 05/30/2018 [id number] [facility] 05/27/2018 [id number] [facility] 05/23/2018/05/24/20 [id number] Ambulatory [address] Main [place] Repository 05/16/2018/05/30/20 [id number] Ambulatory [address] Main [place] Repository 04/24/2018/05/10/20 [id number] Ambulatory [address] Main [place] Repository 04/12/2018/04/16/20 [id number] Ambulatory [address] [address] [place] Repository 04/12/2018/04/12/20 [id number] Ambulatory [address] [place] Repository 04/09/2018/04/29/20 [id number] Ambulatory [address] [facility] [place] Repository 04/09/2018/04/09/20 [id number] Ambulatory [address] [place] Repository 03/26/2018/03/27/20 [id number] Ambulatory [address] Main [place] Repository 03/20/2018/03/20/20 [id number] Ambulatory [address] [facility] ing:OT Repository 03/11/2018 [id number] [facility]MTLAB Repository 03/05/2018/03/06/20 [id number] Ambulatory [address] [place] Repository 02/27/2018/02/29/20 [id number] Ambulatory [address] Main [place] Repository 02/11/2018/02/12/20 [id number] [place] [facility] ing[facility]SDC Repository 01/29/2018/01/31/20 [id number] Ambulatory [address] [place] Repository 01/22/2018/01/26/20 [id number] Ambulatory [address] [place] Repository 01/15/2018/01/16/20 [id number] Ambulatory [address] Repository 01/01/2018/01/02/20 [id number] Ambulatory [address] Repository 12/25/2017/12/26/19 [id number] Ambulatory [address] Repository 12/18/2017 [id number] Ambulatory [facility] ing:LABSPEC Repository 12/13/2017 [id number] Ambulatory [facility] ing:DC Repository 12/12/2017/12/12/19 [id number] Ambulatory [address] Repository 12/12/2017 [id number] Ambulatory [facility] ing:MTLAB Repository PAYERS PAYERS ENCOUNTER GUARANTOR PAYER SUBSCRIBER SOURCE 12/02/2018 GERHARD Chapa Primary [place] [id number] Insurance:[facility] [place] [address] [place] [facility] [id number] Number: Repository [id number]: 330 [id number] [phone] () Date:3425-56-16YT [address] [place] [address] 19140GT: 12/02/2018 Secondary NOT GIVENUNK [place] Insurance:SELF PAY [facility] Number: Effective Repository Date:2018-11-27 11/21/2018 GERHARD Chapa Primary [place] [id number] Insurance:[facility] Community [place] [id number] [facility] Number: Repository [id number]: 330 [id number] [phone] () Date:3874-67-69ZV [address] [place] [address] 86239MH: 11/21/2018 Secondary NOT GIVENUNK [place] Insurance:SELF PAY [facility] Number: Effective Repository Date:2018-11-21 11/20/2018 GERHARD Chapa Primary [place] [id number] Insurance[facility]: Community [place] [id number] [facility] Number: Repository [phone]: (330 [id number] [phone] (HP) Date:2602-10-34AO [address] [place] [address] 49938LF: 11/20/2018 Secondary NOT GIVENUNK [place] Insurance:SELF PAY [facility] Number: Effective Repository Date:2018-11-20 11/05/2018 GERHARD R Primary [place] [id number] Insurance:ANTHEM SHRIVERDOB: Community [place] [id number], [place] ADVANTAPolicy Number: Repository [id number]: [phone]) [id number] [phone] (HP) Date:2201-40-55ZP [address] [place] [address] 54764WE: 11/05/2018 Secondary NOT GIVENUNK [place] Insurance:SELF PAY [facility] Number: Effective Repository Date:2018-11-05 08/23/2018 Gerhard R Primary DEB[place] [id number] Insurance:ANTHEM SHRIVERDOB: Community [place] [address] MED[place]IOR [id number] ADV[place]APolicy Number: Repository [id number]: (330 [id number] [phone] (HP) Date:0655-65-98DD [address] [place] [address] 93748MP: 08/23/2018 Secondary NOT GIVENUNK [place] Insurance:SELF PAY [facility] Number: Effective Repository Date:2018-08-23 06/28/2018 Gerhard R Primary DEB[place] [id number] Insurance:ANTHEM SHRIVERDOB: Community [place] [address] MEDICARE [place]ENIOR [id number], [place] ADV[place]APolicy Number: Repository [id number]: (330 [id number] [phone] (HP) Date:5061-72-26IZ [id number] [place] [address] 71011SI: 06/28/2018 Secondary NOT GIVENUNK [place] Insurance:SELF PAY [facility] Number: Effective Repository Date:2018-06-24 06/07/2018 Gerhard R Primary [place] [id number] Insurance:ANTHEM SHRIVERDOB: Community [place] [address] MEDICARE [place]ENIOR [id number] ADV[place]APolicy Number: Repository [id number]: 330 [id number] [phone] (HP) Date:9413-10-27VY [address] [place] [address] 63934VC: 06/07/2018 Secondary NOT GIVENUNK [place] Insurance:SELF PAY [facility] Number: Effective Repository Date:2018-06-07 06/07/2018 Gerhard R Primary [place] [id number] Insurance:ANTHEM SHRIVERDOB: Community [place] [address] MEDICARE [place]ENIOR [id number], [place]APolicy Number: Repository [id number]: 330 [id number] [phone] (HP) Date:1271-88-17ZO [address] [place] [address] 89024QU: 06/07/2018 Secondary NOT GIVENUNK [place] Insurance:SELF PAY [facility] Number: Effective Repository Date:2018-06-07 06/07/2018 Gerhard R Primary [place] [id number] Insurance:ANTHEM SHRIVERDOB: Community [place] [address] MEDICARE [place]ENIOR [id number]APolicy Number: Repository [id number]: (330 [id number] [phone] (HP) Date:1861-99-67MF [address] [place] [address] 37397EM: 06/07/2018 Secondary NOT GIVENUNK [place] Insurance:SELF PAY [facility] Number: Effective Repository Date:2018-06-07 06/07/2018 Gerhard R Primary [place] [id number] Insurance:ANTHEM SHRIVERDOB: Community [place] [address] MEDICARE SENIOR [id number], [place] ADVANTAPolicy Number: Repository [id number]: (330) [id number] [phone]) Date:9922-56-91VS [address] [place] [address] 81635YZ: 06/07/2018 Secondary NOT GIVENUNK [place] Insurance:SELF PAY [facility] Number: Effective Repository Date:2018-06-07 06/07/2018 Gerhard R Primary [place] [id number] Insurance:ANTHEM SHRIVERDOB: Community [place] [address] MEDICARE SENIOR [id number], [place]APolicy Number: Repository [id number]: (330) [id number] [phone] (HP) Date:1303-35-99JD [address] [place] [address] 68429IX: 06/07/2018 Secondary NOT GIVENUNK [place] Insurance:SELF PAY [facility] Number: Effective Repository Date:2018-06-07 05/30/2018 Gerhard R Primary [place] [id number] Insurance:ANTHEM SHRIVERDOB: Community [place] [address] MEDICARE SENIOR [id number], [place] ADV[place]APolicy Number: Repository [id number]: (330) [id number] [phone] (HP) Date:7508-99-21DK [address] [place] [address] 38702SS: 05/30/2018 Secondary NOT GIVENUNK [place] Insurance:SELF PAY [facility] Number: Effective Repository Date:2018-05-27 05/27/2018 Gerhard R Primary [place] [id number] Insurance:ANTHEM SHRIVERDOB: Community [place] [address] MEDICARE SENIOR [id number], [place] ADVANTAPolicy Number: Repository [id number]: (330) [id number] [phone] (HP) Date:1512-46-63WD [address] [place] [address] [place] 91814II: 05/27/2018 Secondary NOT GIVENUNK [place] Insurance:SELF PAY [facility] Number: Effective Repository Date:2018-05-27 03/20/2018 Gerhard R Primary [place] [id number] Insurance:MEDICARE SHRIVERDOB: [facility] olicy [id number], [place] Number: Repository [id number]: 330 [id number] [phone] () Date:1997-09-19 03/20/2018 Secondary NOT GIVENUNK [place] Insurance:SELF PAY [facility] Number: Effective Repository Date:2018-02-22 03/11/2018 Gerhard R Primary [place] [id number] Insurance:MEDICARE SHRIVERDOB: [facility] [address] olicy [id number], [place] Number: Repository [id number]: 330 [id number] [phone] () Date:2018-03-11 03/11/2018 Secondary NOT GIVENUNK [place] Insurance:SELF PAY [facility] Number: Effective Repository Date:2018-03-11 02/11/2018 Gerhard R Primary [place] [id number] Insurance:MEDICARE SHRIVERDOB: [facility] [address] [facility] [id number], [place] Number: Repository [id number]: 330 [id number] [phone] () Date:2018-01-15 02/11/2018 Secondary NOT GIVENUNK [place] Insurance:SELF PAY [facility] Number: Effective Repository Date:2018-01-15 12/18/2017 Gerhard R Primary [place] [id number] Insurance:MEDICARE SHRIVERDOB: [facility] [address] [place]lic[place] [id number], [place] Number: Repository [id number]: 330 [id number] [phone] () Date:2017-12-18 12/18/2017 Secondary NOT GIVENUNK [place] Insurance:SELF PAY [facility] Number: Effective Repository Date:2017-12-18 12/13/2017 Gerhard R Primary DE[place] [id number] Insurance:MEDICARE SHRIVERDOB: [facility] [address] A [facility] [id number], [place] Number: Repository [id number]: 330 [id number] [phone] () Date:1997-09-19 12/13/2017 Secondary NOT GIVENUNK [place] Insurance:SELF PAY [facility] Number: Effective Repository Date:2017-11-19 12/12/2017 Gerhard [id number] Insurance:MEDICARE SHRIVERDOB: [facility] [address] BPolicy [id number], [place] Number: Repository [id number]: 330 [id number] [phone] () Date:2017-12-12 12/12/2017 Secondary NOT GIVENUNK [place] Insurance:SELF PAY [facility] Number: Effective Repository Date:2017-12-12
== END ==
PROVIDERS: Family Provider Internal Medicine; PCP Internal Medicine; Referring Provider Internal Medicine Nephrology; Visit Provider Internal Medicine Nephrology
DX: N17.9 Acute kidney failure, unspecified (principal); E11.40 Type 2 diabetes mellitus with diabetic neuropathy, unspecified
CPT/HCPCS: 36415; 80069; 82570; 84156

== ENCOUNTER → 2018-11-20 13:57 | Outpatient (CLI) | payer MEDICARE, SELFPAY ==
[2018-11-20 16:38] LABS: Albumin, Serum 3.7 g/dL (3.2-5.0); BUN 26 mg/dL (7-18); BUN/Creat Ratio 20.5 RATIO (10-20); Calcium,Total 9.1 mg/dL (8.5-10.1); Chloride 111 mmol/L (98-107); Creatinine, Serum 1.27 mg/dL (0.55-1.02); EST Glomerular Filtration Rate 47 mL/min (>60); Est Glom Filt Rate - Afr Amer 57 mL/min (>60); Glucose 135 mg/dL (74-106); Potassium 3.9 mmol/L (3.5-5.1); Sodium Level 142 mmol/L (136-145)
== END ==
PROVIDERS: Family Provider Internal Medicine; PCP Internal Medicine; Visit Provider Internal Medicine Nephrology
DX: N17.9 Acute kidney failure, unspecified (principal)
CPT/HCPCS: 36415; 80069

== ENCOUNTER → 2019-02-10 08:34 | Outpatient (CLI) | payer MEDICARE, SELFPAY ==
[2019-02-10 10:42] LABS: Absolute Lymphocyte Count 2.04 X10^3/ul (0.83-4.51); Absolute Neutrophil Count 1.8 X10^3/uL (2.0-7.7); Basophil# 0.01 X10^3/uL; Basophil% 0.2 % (0-1); Eosinophil# 0.12 X10^3/uL; Eosinophils% 2.8 % (0-5); Hematocrit 47.9 % (37-47); Hemoglobin 15.6 g/dl (12.0-15.0); Lymphocyte # 2.04 X10^3/ul (4.0); Lymphocyte % 46.8 % (19-41); Mean Corp Hgb Conc 32.6 g/gl (32-36); Mean Corpuscular Hgb 33.8 pg (27.0-32.0); Mean Corpuscular Volume 103.9 fL (81-99); Mean Platelet Vol. 10.4 fl (6.2-12.0); Monocyte# 0.35 X10^3/uL; Neutrophil # 1.84 X10^3/uL (2.7-7.7); Neutrophil % 42.2 % (47-70); Platelet Count 164 K/mm3 (150-450); RBC Distribution Width CV 14.5 % (11.6-14.6); RBC Distribution Width SD 55.4 fl (35.1-43.9); Red Blood Count 4.61 M/mm3 (4.2-5.4); White Blood Count 4.4 K/mm3 (4.4-11.0)
[2019-02-10 10:53] LABS: POSITIVE COUNT NO; POSITIVE DIFFERENTIAL NO; POSITIVE MORPHOLOGY NO
[2019-02-10 10:54] LABS: ALB/GLOB Ratio 1.2 RATIO (0.9-2.4); AST(SGOT) 24 U/L (15-37); Alanine Aminotransfer ALT/SGPT 33 U/L (13-56); Albumin, Serum 3.9 g/dL (3.2-5.0); Alkaline Phosphatase 130 U/L (45-117); Anion Gap 5 (5-15); BUN 23 mg/dL (7-18); Calcium,Total 9.4 mg/dL (8.5-10.1); Chloride 107 mmol/L (98-107); Creatinine, Serum 1.64 mg/dL (0.55-1.02); EST Glomerular Filtration Rate 35 mL/min (>60); Est Glom Filt Rate - Afr Amer 42 mL/min (>60); Globulin 3.3 g/dL (2.2-4.2); Glucose 219 mg/dL (74-106); Potassium 3.8 mmol/L (3.5-5.1); Protein, Total 7.2 g/dL (6.4-8.2); Sodium Level 141 mmol/L (136-145)
== END ==
PROVIDERS: Family Provider Internal Medicine; PCP Internal Medicine; Referring Provider Internal Medicine Rheumatology; Visit Provider Internal Medicine Rheumatology
DX: L40.59 Other psoriatic arthropathy (principal); M79.7 Fibromyalgia; M77.11 Lateral epicondylitis, right elbow; G62.9 Polyneuropathy, unspecified; K58.9 Irritable bowel syndrome, unspecified; E11.22 Type 2 diabetes mellitus with diabetic chronic kidney disease; I12.9 Hypertensive chronic kidney disease with stage 1 through stage 4 chronic kidney disease, or unspecified chronic kidney disease; K76.0 Fatty (change of) liver, not elsewhere classified; E03.9 Hypothyroidism, unspecified; J45.909 Unspecified asthma, uncomplicated; G47.33 Obstructive sleep apnea (adult) (pediatric); F31.9 Bipolar disorder, unspecified; Z79.899 Other long term (current) drug therapy; Z86.718 Personal history of other venous thrombosis and embolism
CPT/HCPCS: 36415; 80053; 85025

== ENCOUNTER → 2019-04-17 13:18 | Outpatient (CLI) | payer MEDICARE, MEDICAID, SELFPAY ==
[2019-03-27 14:23] VITALS: BMI 48.2
--- NOTE | 2019-04-17 13:23 | CT_ITS ---
STUDY: CT ABDOMEN AND PELVIS WITHOUT CONTRAST REASON FOR EXAM: Female, 53 years old. Pain. Hernia. RADIATION DOSAGE (If Supplied By Facility): CTDIvol = ( 34.09 ) mGy, DLP = ( 1814.20 ) mGycm TECHNIQUE: Transaxial images were obtained from the dome of the diaphragm to the symphysis pubis without oral contrast, and without intravenous contrast. Sagittal and coronal images were reconstructed. Individualized dose optimization techniques were used for this CT. COMPARISON: 04/08/2017 FINDINGS: Evaluation of the abdominal viscera is limited in the absence of intravenous contrast. There is patchy groundglass opacity in the lung bases. The visualized portions of the heart and pericardium are within normal limits. The patient is status post cholecystectomy. The liver demonstrates an unremarkable unenhanced appearance. The spleen is normal in size. There is stable fatty atrophy of the pancreas. The adrenal glands are within normal limits. There are no renal or ureteral stones. There is no hydronephrosis. Normal visualized stomach. There is no bowel obstruction or inflammation. Again noted are colonic diverticula without evidence of diverticulitis. The patient is status post appendectomy. There is a small fat containing ventral hernia. There is no bowel containing hernia. The patient is status post hysterectomy. The aorta is normal in caliber. There is no abdominal or pelvic free air, free fluid, fluid collection or lymphadenopathy. There are no destructive osseous lesions. CT/Abdomen/Pelvis without Cont IMPRESSION: No bowel obstruction or inflammation. Status post appendectomy. Small fat-containing ventral hernia. No bowel containing hernia. Stable fatty atrophy of the pancreas. No urinary calculi. No hydronephrosis. Ground glass opacity at the lung bases which may be due to mild infection or inflammation. Electronically Signed: Nabeel Allan, at 17:05 EDT Tel , Service support ,
== END ==
PROVIDERS: Family Provider Internal Medicine; PCP Internal Medicine; Referring Provider Surgery; Visit Provider Surgery
DX: K43.2 Incisional hernia without obstruction or gangrene (principal); E11.9 Type 2 diabetes mellitus without complications; E65 Localized adiposity; L30.4 Erythema intertrigo; M79.3 Panniculitis, unspecified; T88.9XXS Complication of surgical and medical care, unspecified, sequela; R10.84 Generalized abdominal pain; G89.29 Other chronic pain
CPT/HCPCS: 74176

== ENCOUNTER 2019-05-15 16:10 | Emergency (ER) | payer MEDICARE, MEDICAID, SELFPAY ==
[2019-03-27 14:23] VITALS: BMI 48.2
[2019-05-15 16:12] VITALS: BP 163/105; PULSE 115; PULSE 117; RESP 18; TEMP 37.2; O2SAT 91; BMI 53.4
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
[2019-05-15] MEDS: Metoclopramide 10 MG/2 ML Vial IV (18:40)
[2019-05-15 19:04] LABS: International Normalized Ratio 1.1
[2019-05-15 19:26] VITALS: BP 158/99; PULSE 76; RESP 16; O2SAT 97
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
[2019-05-15 20:26] VITALS: BP 134/86; PULSE 88; RESP 16; O2SAT 98
== END 2019-05-15 20:30 | disposition home or self-care (01) ==
PROVIDERS: Emergency Provider Emergency Medicine; Family Provider Internal Medicine; PCP Internal Medicine
DX: S40.021A Contusion of right upper arm, initial encounter (principal); S40.011A Contusion of right shoulder, initial encounter; V43.52XA Car driver injured in collision with other type car in traffic accident, initial encounter; Y92.410 Unspecified street and highway as the place of occurrence of the external cause; W01.0XXA Fall on same level from slipping, tripping and stumbling without subsequent striking against object, initial encounter; G43.909 Migraine, unspecified, not intractable, without status migrainosus; J45.909 Unspecified asthma, uncomplicated; E11.22 Type 2 diabetes mellitus with diabetic chronic kidney disease; N18.3 Chronic kidney disease, stage 3 (moderate); E11.40 Type 2 diabetes mellitus with diabetic neuropathy, unspecified; M79.7 Fibromyalgia; M54.9 Dorsalgia, unspecified; G89.29 Other chronic pain; K58.9 Irritable bowel syndrome, unspecified; K21.9 Gastro-esophageal reflux disease without esophagitis; F32.9 Major depressive disorder, single episode, unspecified; Z87.19 Personal history of other diseases of the digestive system; G47.30 Sleep apnea, unspecified; Z79.01 Long term (current) use of anticoagulants; Z88.2 Allergy status to sulfonamides; Z88.8 Allergy status to other drugs, medicaments and biological substances; Z90.710 Acquired absence of both cervix and uterus; Z90.49 Acquired absence of other specified parts of digestive tract
CPT/HCPCS: 70450; 85610; 96374; 99284

== ENCOUNTER → 2019-05-21 11:43 | Outpatient (CLI) | payer MEDICARE, MEDICAID, SELFPAY ==
[2019-05-15 16:12] VITALS: BMI 53.4
--- NOTE | 2019-05-21 12:30 | RAD_ITS ---
STUDY: X-RAY - PELVIS AND BILATERAL HIPS REASON FOR EXAM: Female, 54 years old. Pain. TECHNIQUE: AP view of the pelvis.? 2 views of the right hip, and 2 views of the left hip were obtained. COMPARISON: None. FINDINGS: There is a non-specific bowel gas pattern. Normal visualized soft tissue structures. Normal bilateral iliac wings, sacroiliac joints and visualized sacrum. Normal bilateral superior and inferior pubic rami. Normal pubic symphysis. Normal bilateral ischial tuberosities. Normal visualized right femoral head. Normal right acetabulum. Normal right hip joint. Normal visualized left femoral head. Normal left acetabulum. Normal left hip joint. RAD/Hips B/L min 2 views w/ Pelvis IMPRESSION: Normal x-ray examination of the pelvis and bilateral hips. Electronically Signed: Tulio Saleh MD at 19:30 EDT , Service support ,
== END ==
PROVIDERS: Family Provider Internal Medicine; PCP Internal Medicine; Referring Provider Anesthesiology Pain Medicine; Visit Provider Anesthesiology Pain Medicine
DX: M25.559 Pain in unspecified hip (principal)
CPT/HCPCS: 73521

== ENCOUNTER 2019-08-17 13:38 | Emergency (ER) | payer MEDICARE, SELFPAY ==
[2019-08-17 13:39] VITALS: BP 194/131; PULSE 122; RESP 16; TEMP 36.7; O2SAT 95; BMI 49.1
--- NOTE | 2019-08-17 14:18 | ED.VISSUMM ---
- ER Visit Summary Date of Service: 08/17/19 Chief Complaint: Dental pain and bleeding from her upper gums on Coumadin. History of Present Illness: The patient is a 54 F history of TIA, insulin-dependent diabetes, hypertension and renal insufficiency. Patient is on Coumadin. Said she has had dental pain and has bad teeth. Today she manipulated her right upper molar and said she pulled something out does not know what that was started having bleeding since 7 AM. Denies any facial swelling. Physical Examination: Middle-aged female no acute distress vital signs stable initial blood pressure is elevated 194/131. HEENT exam poor dentition. Her molars appear to be intact but she is bleeding from her right upper gums. Posterior pharynx unremarkable. Neck is nontender. Lungs are clear. Heart regular rhythm no murmur. Abdomen is soft and nontender. Patient moving all 4 extremities. Neurologically she is awake and alert. Test Results: PT = 35 and 3.5 INR. Emergency Department Course and Treatment: Lidocaine with epinephrine applied to the site to decrease her bleeding. Lidocaine with epinephrine soaked a washcloth the patient held that in her mouth and its decreased her bleeding. There is still mild oozing and she understands that we will continue. Treatment Plan: Continue her current medications including her Coumadin. Follow-up with her dentist this week. Will be placed on Pen-Vee K 250 4 times daily for 10 days for gingivitis. Disposition: Discharge Impression: Bleeding from gums Anticoagulated on Coumadin with an INR 3.5. Dental decay This note was generated with [employer] dictation software. It may contain incorrect words, spelling, and punctuation that were not noted in review of the chart prior to signing ED Disposition - Plan for ED Patient: Disposition: Home or Assisted Living Instructions: Dental Pain Prescriptions: Penicillin Vk [Pen-Vee K , V-Cillin K] 250 mg PO 4X/DAY #40 tab Prescription Printed Additional Instructions: Call follow-up with your dentist Dr. Andrew Alexis this week. Use Afrin or Frederic-Synephrine nasal spray soak a hand rag and holding her mouth like you did in the ER. This will help stop the bleeding. Penicillin oral antibiotic for any type of dental infection. Warm salt water rinses to your mouth. Return if worse.
[2019-08-17 15:16] LABS: International Normalized Ratio 3.5
--- NOTE | 2019-08-17 15:19 | ED.RN ---
NOTIFIED DR. CAMARA OF INR 3.5
--- NOTE | 2019-08-17 16:14 | ED.DEP ---
ED Disposition - Plan for ED Patient: Disposition: Home or Assisted Living Instructions: Dental Pain Prescriptions: Penicillin Vk [Pen-Vee K , V-Cillin K] 250 mg PO 4X/DAY #40 tab Prescription Printed Additional Instructions: Call follow-up with your dentist Dr. Andrew Alexis this week. Use Afrin or Frederic-Synephrine nasal spray soak a hand rag and holding her mouth like you did in the ER. This will help stop the bleeding. Penicillin oral antibiotic for any type of dental infection. Warm salt water rinses to your mouth. Return if worse.
[2019-08-17 16:28] VITALS: RESP 16
== END 2019-08-17 16:28 | disposition home or self-care (01) ==
PROVIDERS: Emergency Provider Emergency Medicine; Family Provider Internal Medicine; PCP Internal Medicine
DX: K06.8 Other specified disorders of gingiva and edentulous alveolar ridge (principal); K02.9 Dental caries, unspecified; Z79.01 Long term (current) use of anticoagulants; E11.9 Type 2 diabetes mellitus without complications; I10 Essential (primary) hypertension; N28.9 Disorder of kidney and ureter, unspecified; Z86.73 Personal history of transient ischemic attack (TIA), and cerebral infarction without residual deficits; Z79.4 Long term (current) use of insulin; Z79.899 Other long term (current) drug therapy
CPT/HCPCS: 85610; 99285; A4216

== ENCOUNTER → 2019-09-19 12:42 | Outpatient (CLI) | payer MEDICARE, SELFPAY | PROVIDERS: Family Provider Internal Medicine; PCP Internal Medicine; Referring Provider Anesthesiology Pain Medicine; Visit Provider Anesthesiology Pain Medicine | DX: Z53.9 Procedure and treatment not carried out, unspecified reason (principal) ==